=== PATIENT | female | born 1980 | race Caucasian/White ===

== ENCOUNTER 2020-07-06 15:56 | Emergency (ER) | payer OTHER, SELFPAY ==
--- NOTE | ~2020-07-06 | CT_ITS ---
EXAMINATION: CT ABDOMEN AND PELVIS WITHOUT CONTRAST CLINICAL INFORMATION: Left lower quadrant pain. COMPARISON: CT scan abdomen pelvis 08/16/2016 TECHNIQUE: Multidetector volumetric imaging was performed from the superior aspect of the liver through the pubic symphysis. Sagittal and coronal reformatted images were obtained on the technologist's workstation. This CT examination was performed using dose optimization techniques as appropriate, variously including the following: *Automated exposure control *Adjustment of mA and/or kV according to patient size (this includes techniques or standardized protocols for targeted exams where dose is matched to indication/reason for exam; i.e. extremities or head) *Use of iterative reconstruction technique DLP: 434 mGy-cm FINDINGS: LUNG BASES: The visualized lung bases are unremarkable. LIVER, GALLBLADDER, AND BILIARY TREE: The liver is normal in size, shape, and attenuation. No focal hepatic lesion or biliary ductal dilatation is present. The gallbladder is unremarkable with no evidence of radiopaque gallstones, gallbladder wall thickening, or obvious pericholecystic inflammatory changes. PANCREAS: Unremarkable. SPLEEN: Unremarkable. ADRENAL GLANDS: Unremarkable. KIDNEYS AND URETERS: The kidneys are normal in size, shape, and attenuation. No hydronephrosis, hydroureter, or calculi seen. No perinephric stranding. Stable hyperdense cyst upper pole left kidney unchanged since 08/16/2016. There is also 2 to 3 mm hyperdense cortical lesion likely a cyst at the lower pole left kidney. No follow-up imaging is recommended for these renal cyst. BLADDER: Unremarkable. GASTROINTESTINAL TRACT: There are numerous diverticula of the colon. There is moderate focal diverticulitis of the distal descending colon. There is bowel wall thickening and pericolonic edema. No obstruction. No abscess or perforation. Moderate volume of scattered stool in the colon. The small bowel loops are normal. The appendix is normal. ABDOMINAL WALL: No significant hernia is appreciated. LYMPH NODES: Normal. VASCULAR: Unremarkable. PELVIC VISCERA: Uterus is anteverted. IUD in the endometrial cavity. There is no adnexal abnormality. OSSEOUS STRUCTURES: Unremarkable. CT/CT abdomen pelvis wo con IMPRESSION: Focal diverticulitis of the distal descending colon. No obstruction or abscess or perforation.
[2020-07-06 16:42] VITALS: BP 137/85; PULSE 77; RESP 18; TEMP 36.7; O2SAT 100; BMI 23.0
[2020-07-06 17:48] LABS: MANUAL DIFF FLAG NO
[2020-07-06 17:52] LABS: Basophils Absolute Auto 0.1 X10*3/uL (0.0-0.2); Basophils Percent Auto 0.6 % (0-2); Eosinophils Absolute Auto 0.4 X10*3/uL (0.0-0.4); Eosinophils Percent Auto 3.9 % (0-4); Hematocrit 35.2 % (37-47); Hemoglobin 11.8 g/dl (12.0-16.0); Imm Gran Abs Auto 0.04 X10*3/uL (0.00-0.03); Imm Gran Pct Auto 0.4 % (0.0-0.4); Lymphocytes Absolute Auto 1.8 X10*3/uL (1.2-4.9); Lymphocytes Percent Auto 17.5 % (20-40); Mean Corpuscular HGB Conc 33.5 g/dl (31.0-35.0); Mean Corpuscular Hemoglobin 28.3 pg (27.0-33.0); Mean Corpuscular Volume 84.4 fL (80-98); Mean Platelet Volume 10.4 fL (9.4-12.3); Monocytes Absolute Auto 0.9 X10*3/uL (0.1-1.2); Monocytes Percent Auto 8.8 % (2-11); Neutrophils Percent Auto 68.8 % (45-73); Platelet Count 431 X10*3/uL (160-400); Red Blood Count 4.17 X10*6/uL (4.20-5.50); Red Cell Distribution Width 12.9 % (11.0-16.0); White Blood Count 10.2 X10*3/uL (4.8-10.8)
[2020-07-06 18:26] LABS: Alanine Aminotransferase 18 U/L (0-31); Albumin Level 4.2 g/dL (3.5-5.0); Alkaline Phosphatase 69 U/L (39-117); Anion Gap 14 (12-20); Aspartate Amino Transferase 21 U/L (5-31); Bilirubin Total 0.5 mg/dL (0.0-1.0); Blood Urea Nitrogen 9 mg/dL (9-16); Calcium 9.6 mg/dL (8.4-10.2); Carbon Dioxide 25 mmol/L (22-29); Chloride 102 mmol/L (96-108); Creatinine Clr Calc Pharmacy 96.2; Estimated Glomerular Filt Rate > 60; Glucose Random 96 mg/dL (60-115); Potassium 3.7 mmol/L (3.3-5.1); Sodium 137 mmol/L (135-145); Total Protein 7.1 g/dL (6.5-8.0)
--- NOTE | 2020-07-06 22:03 | ED.ABDPAIN ---
HPI - Abdominal Pain General Chief Complaint: Abdominal Pain Stated Complaint: abd pain Time Seen by Provider: 07/06/20 21:46 Source: patient Mode of arrival: ambulatory Limitations: no limitations History of Present Illness MD elicited complaint: abdominal pain Pertinent past history: diverticulitis Onset (ago): day(s) (3) Pain Consistency: constant Location: LLQ Severity: moderate Quality: cramping Radiation: none Migration to: no migration Exacerbating factors: movement Relieving factors: nothing Context: history of similar episodes Associated symptoms: nausea and diarrhea Treatments prior to arrival: antacids Related Data Previous Rx's Medication Instructions Recorded naltrexone 50 mg tablet 50 mg PO DAILY #30 tab 04/19/20 levofloxacin 500 mg PO DAILY 7 Days #7 tab 07/06/20 metronidazole [Flagyl] 500 mg PO BID 7 Days #14 tab 07/06/20 ondansetron 4 mg PO Q8H PRN #20 tab 07/06/20 Allergies Allergy/AdvReac Type Severity Reaction Status Date / Time penicillin G [Penicillin G] Allergy Mild UNKNOWN Verified 07/06/20 16:42 Sulfa (Sulfonamide Allergy Mild RASH Verified 07/06/20 16:42 Antibiotics) [SULFA (SULFONAMIDE ANTIBIOTICS)] penicillin V Allergy Unknown Unknown Verified 07/06/20 16:42 Review of Systems Review of Systems Constitutional : No Weight loss, No Fever, No Chills ENT/Mouth : No sore throat, No Rhinorrhea Eyes: No Swelling, No Redness Cardiovascular : No Chest Pain, No SOB, NoEdema Respiratory : No Cough, No Sputum, No Wheezing Gastrointestinal : Positive Nausea, no Vomiting, positive Diarrhea, positive abdominal Pain, No Hematochezia, No Melena Genitourinary : No Dysuria, No Urinary Frequency, No Hematuria, No Urgency Musculoskeletal : No joint pain, No Myalgias, No Joint Swelling Skin : No Skin Lesions, No rash Neuro : No Weakness, No Numbness, No Dizziness, No Headache Psych : No Anxiety/Panic, No Depression Heme/Lymph: No Bruising, No Lymphadenopathy Endocrine : No Polyuria, No Polydipsia All other systems reviewed and are negative. Physical Exam Vital Signs: Vital Signs: Last Vital Signs Temp 98.8 F 07/06/20 22:16 Pulse 80 07/06/20 22:16 Resp 20 07/06/20 22:16 BP 141/95 H 07/06/20 22:16 Pulse Ox 98 07/06/20 22:16 Body Mass Index 23.0 Appearance: Alert. Oriented X3. No acute distress. Eyes: Pupils equal, round and reactive to light. ENT: Pharynx normal. Neck: Normal inspection. Neck supple. CVS: Normal heart rate and rhythm. Pulses normal. Respiratory: No respiratory distress. Breath sounds normal. Abdomen: Soft and mild LLQ pain no rebound or guarding Skin: Skin warm and dry. Normal skin color. Normal skin turgor. Extremities: No lower extremity edema. No calf ttp Neuro: Oriented X 3. No motor deficit. No sensory deficit. Course Course Course Narrative: not toxic, overall benign exam can tolerate PO stable for outpatient management MDM - Abdominal Pain MDM Narrative Medical decision making narrative: 40 yo female hx of diverticulitis and ovarian cyst here with LLQ pain with some loose stools and nausea at this time, labs, UA, CT scan for diverticulitis ordered, not toxic, no WBC count, no GIB symptoms dispo per results and findings. Lab Data Result diagrams: 07/06/20 17:35 07/06/20 17:35 Labs: Lab Results 07/06/20 07/06/20 07/06/20 Range/Units 17:35 17:35 17:35 WBC 10.2 (4.8-10.8) X10*3/uL RBC 4.17 L (4.20-5.50) X10*6/uL Hgb 11.8 L (12.0-16.0) g/dl Hct 35.2 L (37-47) % MCV 84.4 (80-98) fL MCH 28.3 (27.0-33.0) pg MCHC 33.5 (31.0-35.0) g/dl RDW 12.9 (11.0-16.0) % Plt Count 431 H (160-400) X10*3/uL MPV 10.4 (9.4-12.3) fL Immature Gran % (Auto) 0.4 (0.0-0.4) % Neut % (Auto) 68.8 (45-73) % Lymph % (Auto) 17.5 L (20-40) % [place] % (Auto) 8.8 (2-11) % Eos % (Auto) 3.9 (0-4) % Baso % (Auto) 0.6 (0-2) % Lymph # (Auto) 1.8 (1.2-4.9) X10*3/uL [place] # (Auto) 0.9 (0.1-1.2) X10*3/uL Eos # (Auto) 0.4 (0.0-0.4) X10*3/uL Baso # (Auto) 0.1 (0.0-0.2) X10*3/uL Abs Immat Gran (auto) 0.04 H (0.00-0.03) X10*3/uL Absolute Neuts (auto) 7.0 (2.0-8.3) X10*3/uL Absolute Nucleated RBC 0.000 (0.0-0.012) X10*3/uL Nucleated RBC % (auto) 0.0 (0.0-0.2) /100WBC Hold Blue Top SEE NOTE Sodium 137 (135-145) mmol/L Potassium 3.7 (3.3-5.1) mmol/L Chloride 102 (96-108) mmol/L Carbon Dioxide 25 (22-29) mmol/L Anion Gap 14 (12-20) BUN 9 (9-16) mg/dL Creatinine 0.63 (0.5-1.4) mg/dL Estim Creat Clear Calc 96.2 Estimated GFR > 60 Random Glucose 96 (60-115) mg/dL Calcium 9.6 (8.4-10.2) mg/dL Total Bilirubin 0.5 (0.0-1.0) mg/dL AST 21 (5-31) U/L ALT 18 (0-31) U/L Alkaline Phosphatase 69 (39-117) U/L Total Protein 7.1 (6.5-8.0) g/dL Albumin 4.2 (3.5-5.0) g/dL Lipase 19 (8-78) U/L Urine Color Urine Appearance Urine pH (5.0-8.0) Ur Specific [place] (1.005-1.025) Urine Protein (NEG-TRACE) MG/DL Urine Glucose (UA) (NEG) MG/DL Urine Ketones (NEG) MG/DL Urine Blood (NEG) Urine Nitrite (NEG) Ur Leukocyte Esterase (NEG) Urine RBC (0) /HPF Urine WBC (0-4) /HPF Ur Squamous Epith Cells /LPF Urine Bacteria /LPF 07/06/20 Range/Units 22:19 WBC (4.8-10.8) X10*3/uL RBC (4.20-5.50) X10*6/uL Hgb (12.0-16.0) g/dl Hct (37-47) % MCV (80-98) fL MCH (27.0-33.0) pg MCHC (31.0-35.0) g/dl RDW (11.0-16.0) % Plt Count (160-400) X10*3/uL MPV (9.4-12.3) fL Immature Gran % (Auto) (0.0-0.4) % Neut % (Auto) (45-73) % Lymph % (Auto) (20-40) % [place] % (Auto) (2-11) % Eos % (Auto) (0-4) % Baso % (Auto) (0-2) % Lymph # (Auto) (1.2-4.9) X10*3/uL [place] # (Auto) (0.1-1.2) X10*3/uL Eos # (Auto) (0.0-0.4) X10*3/uL Baso # (Auto) (0.0-0.2) X10*3/uL Abs Immat Gran (auto) (0.00-0.03) X10*3/uL Absolute Neuts (auto) (2.0-8.3) X10*3/uL Absolute Nucleated RBC (0.0-0.012) X10*3/uL Nucleated RBC % (auto) (0.0-0.2) /100WBC Hold Blue Top Sodium (135-145) mmol/L Potassium (3.3-5.1) mmol/L Chloride (96-108) mmol/L Carbon Dioxide (22-29) mmol/L Anion Gap (12-20) BUN (9-16) mg/dL Creatinine (0.5-1.4) mg/dL Estim Creat Clear Calc Estimated GFR Random Glucose (60-115) mg/dL Calcium (8.4-10.2) mg/dL Total Bilirubin (0.0-1.0) mg/dL AST (5-31) U/L ALT (0-31) U/L Alkaline Phosphatase (39-117) U/L Total Protein (6.5-8.0) g/dL Albumin (3.5-5.0) g/dL Lipase (8-78) U/L Urine Color YELLOW Urine Appearance CLEAR Urine pH 6.0 (5.0-8.0) Ur Specific [place] 1.015 (1.005-1.025) Urine Protein NEG (NEG-TRACE) MG/DL Urine Glucose (UA) NEG (NEG) MG/DL Urine Ketones 5 (NEG) MG/DL Urine Blood TRACE (NEG) Urine Nitrite NEG (NEG) Ur Leukocyte Esterase TRACE H (NEG) Urine RBC 1-4 (0) /HPF Urine WBC 1-4 (0-4) /HPF Ur Squamous Epith Cells TRACE /LPF Urine Bacteria 2+ /LPF Discharge Plan Discharge Clinical Impression: Diverticulitis Patient Disposition: Home, Self-Care Instructions: Diverticulitis (ED) Additional Instructions: return to ED for any worsening symptoms or concerns Prescriptions: New ondansetron 4 mg tablet,disintegrating 4 mg PO Q8H PRN (Reason: nausea and vomiting) Qty: 20 RF: 0 metronidazole [Flagyl] 500 mg tablet 500 mg PO BID 7 Days Qty: 14 RF: 0 levofloxacin 500 mg tablet 500 mg PO DAILY 7 Days Qty: 7 RF: 0 No Action naltrexone 50 mg tablet 50 mg PO DAILY Qty: 30 RF: 3 Referrals: Ollie Pulliam PA-C [Primary Care Provider] - 1 week Stand Alone Forms: Work/School Release [facility] Past Medical History Attestation statement: The following information was validated with the patient. Medical History Alcohol abuse Surgical History No pertinent past surgical history Family History Family History (Updated 03/31/20 @ 08:12 by ESTHER Espino) Father Medical history unknown Mother Medical history unknown Paternal Grandfather Cancer Sister Epilepsy Daughter In good health Son In good health Social History Social History (Updated 07/06/20 @ 22:24 by Kayla Kenney DO) Alcohol intake: former Smoking Status: Never smoker Advance Directives: No Advance Directives Information Provided: No Patient : No
[2020-07-06 22:16] VITALS: BP 141/95; PULSE 80; RESP 20; TEMP 37.1; O2SAT 98
[2020-07-06 22:24] LABS: Lipase 19 U/L (8-78)
[2020-07-06 22:34] LABS: Glucose Urine UA NEG (NEG); Leukocyte Esterase Urine TRACE (NEG); Nitrite Urine NEG (NEG); Specific Gravity - Urine 1.015 (1.005-1.025); UACC Culture Trigger YES; Urine Blood TRACE (NEG); Urine Ketones 5 MG/DL (NEG); Urine Protein NEG (NEG-TRACE)
[2020-07-06 22:36] LABS: Appearance Urine CLEAR; Color Urine YELLOW
[2020-07-06 22:59] LABS: Bacteria Urine 2+ /LPF; Squamous Epithelial Cell Urine TRACE /LPF
[2020-07-06] MEDS: metroNIDAZOLE 500 MG TABLET PO (23:44)
[2020-07-06] MEDS: levoFLOXacin 500 MG TABLET PO (23:44)
== END 2020-07-06 23:48 | disposition home or self-care (01) ==
PROVIDERS: Emergency Provider Emergency Medicine; PCP Physician Assistant
DX: K57.32 Diverticulitis of large intestine without perforation or abscess without bleeding (principal); R10.32 Left lower quadrant pain; Z79.899 Other long term (current) drug therapy
CPT/HCPCS: 36415; 74176; 80053; 81001; 81003; 83690; 85025; 87086; 99283

== ENCOUNTER 2021-01-15 19:24 | Emergency (ER) | payer OTHER, SELFPAY ==
--- NOTE | ~2021-01-15 | CT_ITS ---
EXAMINATION: CT HEAD WITHOUT CONTRAST CLINICAL INFORMATION: Fall. COMPARISON: CT head dated from 10/18/2019. TECHNIQUE: Contiguous axial imaging was performed from the skull base to vertex without intravenous administration of contrast. This CT examination was performed using dose optimization techniques as appropriate, variously including the following: *Automated exposure control *Adjustment of mA and/or kV according to patient size (this includes techniques or standardized protocols for targeted exams where dose is matched to indication/reason for exam; i.e. extremities or head) *Use of iterative reconstruction technique DLP: 579 mGy-cm FINDINGS: There is no evidence of acute intracranial hemorrhage or edematous territorial infarction. There is no abnormal attenuation within the brain parenchyma. Pepper-white matter differentiation is preserved. The ventricles are normal in size and configuration. No evidence for obstructive hydrocephalus. No abnormal mass effect or midline shift. No extra-axial fluid collections. Small contusion in the right parietal vertex. No acute osseous findings. Mild mucosal thickening of the paranasal sinuses. Clear mastoids. CT/CT head/brain wo con IMPRESSION: No evidence of acute intracranial hemorrhage or edematous territorial infarction.
[2021-01-15 19:38] VITALS: BP 134/96; PULSE 113; RESP 18; TEMP 36.7; O2SAT 95; BMI 21.2
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
[2021-01-15 20:37] VITALS: BP 120/86; PULSE 102; RESP 15; O2SAT 95
[2021-01-15] MEDS: 0.9 % Sodium Chloride 1,000 ML 999 ML IVCONT ×2 (20:38→22:28)
[2021-01-15] MEDS: ondansetron HCL 4 MG/2 ML VIAL IVPUSH (20:39)
[2021-01-15] MEDS: Folic Acid 1 MG TABLET PO (20:39)
[2021-01-15] MEDS: Thiamine HCL 100 MG TABLET PO (20:39)
[2021-01-15] MEDS: LORazepam 2 MG/ML VIAL IVPUSH ×2 (20:39→22:29)
[2021-01-15 20:40] LABS: Basophils Absolute Auto 0.1 X10*3/uL (0.0-0.2); Basophils Percent Auto 0.9 % (0-2); Eosinophils Percent Auto 0.6 % (0-4); Hematocrit 41.5 % (37.0-47.0); Hemoglobin 14.4 g/dl (12.0-16.0); Imm Gran Abs Auto 0.01 X10*3/uL (0.00-0.03); Imm Gran Pct Auto 0.1 % (0.0-0.4); Lymphocytes Absolute Auto 1.9 X10*3/uL (1.2-4.9); Lymphocytes Percent Auto 28.1 % (20-40); MANUAL DIFF FLAG NO; Mean Corpuscular HGB Conc 34.7 g/dl (31.0-35.0); Mean Corpuscular Hemoglobin 29.8 pg (27.0-33.0); Mean Corpuscular Volume 85.9 fL (80.0-98.0); Mean Platelet Volume 8.8 fL (9.4-12.3); Monocytes Absolute Auto 0.9 X10*3/uL (0.1-1.2); Monocytes Percent Auto 13.5 % (2-11); Neutrophils Absolute Auto 3.8 x10*3/uL (2.0-8.3); Neutrophils Percent Auto 56.8 % (45-73); Platelet Count 293 X10*3/uL (160-400); Red Blood Count 4.83 X10*6/uL (4.20-5.50); Red Cell Distribution Width 18.1 % (11.0-16.0); White Blood Count 6.7 X10*3/uL (4.8-10.8)
[2021-01-15 20:46] LABS: INTERNATIONAL NORM RATIO 0.9 (0.9-1.1); Prothrombin Time 10.7 SEC (9.9-13.0)
[2021-01-15 20:52] LABS: Ethanol 266 mg/dL
[2021-01-15 21:02] LABS: Alanine Aminotransferase 101 U/L (0-31); Albumin Level 3.8 g/dL (3.5-5.0); Alkaline Phosphatase 144 U/L (39-117); Anion Gap 20 (12-20); Aspartate Amino Transferase 243 U/L (5-31); Bilirubin Total 0.4 mg/dL (0.0-1.0); Blood Urea Nitrogen 4 mg/dL (9-16); Calcium 8.1 mg/dL (8.4-10.2); Carbon Dioxide 21 mmol/L (22-29); Chloride 103 mmol/L (96-108); Creatinine Clr Calc Pharmacy 97.8; Estimated Glomerular Filt Rate > 60; Glucose Random 104 mg/dL (60-115); Lipase 30 U/L (8-78); Magnesium 2.1 mg/dL (1.6-2.6); Potassium 3.7 mmol/L (3.3-5.1); Sodium 140 mmol/L (135-145); Total Protein 6.8 g/dL (6.5-8.0)
[2021-01-15 21:35] LABS: COVID-19 Test Negative (Negative)
[2021-01-15 23:25] VITALS: BP 121/85; PULSE 133; RESP 20; O2SAT 98
--- NOTE | 2021-01-16 00:17 | MHC.CARE ---
CARE team met with pt to provide recovery resources. Pt reports she went to [place] today and then had to come to the ED. She is seeking detox, however at this time there are no available beds. Pt feels safe returning to her mother's house for the night/weekend. She was provided with resources in which she will contact them tomorrow. Pt will be discharged to her mother's home.
[2021-01-16 00:19] VITALS: BP 116/84; PULSE 130; RESP 20; TEMP 37; O2SAT 97
--- NOTE | 2021-01-16 00:20 | PC.NURSE ---
Pt educated on being discharged, stated an understanding. Heart rate remains tachycardic in the 130's, MD Raza aware PO Ativan to be given. BP is WNL. CIWA score is 4, patient only complains of headache and anxiety. 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 IV removed. Pt able to ambulate on her feet without issues.
[2021-01-16] MEDS: LORazepam 1 MG TABLET 2 MG PO (00:25)
== END 2021-01-16 00:54 | disposition home or self-care (01) ==
PROVIDERS: Emergency Provider Internal Medicine; PCP Physician Assistant
DX: F10.120 Alcohol abuse with intoxication, uncomplicated (principal); Y90.8 Blood alcohol level of 240 mg/100 ml or more; F41.9 Anxiety disorder, unspecified; Z20.822 Contact with and (suspected) exposure to COVID-19; Z79.899 Other long term (current) drug therapy
CPT/HCPCS: 36415; 70450; 80053; 82077; 83690; 83735; 85025; 85610; 87635; 96361; 96374; 96375; 96376; 99284; 99285; J2060; J2405

== ENCOUNTER 2021-01-19 15:52 | Inpatient (IN) | payer OTHER, SELFPAY ==
--- NOTE | ~2021-01-19 | CT_ITS ---
EXAMINATION: CT ABDOMEN AND PELVIS WITHOUT CONTRAST CLINICAL INFORMATION: Left-sided abdominal pain COMPARISON: CT scan abdomen pelvis 07/06/2020, 08/16/2016 TECHNIQUE: Multidetector volumetric imaging was performed from the superior aspect of the liver through the pubic symphysis. Sagittal and coronal reformatted images were obtained on the technologist's workstation. This CT examination was performed using dose optimization techniques as appropriate, variously including the following: *Automated exposure control *Adjustment of mA and/or kV according to patient size (this includes techniques or standardized protocols for targeted exams where dose is matched to indication/reason for exam; i.e. extremities or head) *Use of iterative reconstruction technique DLP: 417 mGy-cm FINDINGS: LUNG BASES: The visualized lung bases are unremarkable. LIVER, GALLBLADDER, AND BILIARY TREE: Marked low attenuation of liver parenchyma due to fatty change. This has significantly progressed since the prior CAT scan of 07/06/2020. Right lobe of liver measures 17 cm superior inferior. No focal liver lesion or intrahepatic bile duct dilatation. The gallbladder is unremarkable with no evidence of radiopaque gallstones, gallbladder wall thickening, or obvious pericholecystic inflammatory changes. PANCREAS: Unremarkable. SPLEEN: Unremarkable. ADRENAL GLANDS: Unremarkable. KIDNEYS AND URETERS: The kidneys are normal in size, shape, and attenuation. No hydronephrosis, hydroureter, or calculi seen. No perinephric stranding. Exophytic hyperdense cyst at the midpole left kidney measuring 1.5 cm. This is unchanged since CAT scan 08/16/2016 no further follow-up imaging recommended. BLADDER: Unremarkable. GASTROINTESTINAL TRACT: There are numerous diverticula of the sigmoid colon and descending colon. There are a few scattered diverticula in the right colon. There is subtle bowel wall thickening and subtle pericolonic edema adjacent to the distal descending and proximal sigmoid colon with trace fluid in the pericolonic fat. This is a same area of focal diverticulitis seen on the prior CAT scan of 07/06/2020. The edema and bowel wall thickening was more significant on the prior exam than the current study. No evidence of bowel perforation or abscess. There is no bowel obstruction. There is a moderate volume of stool in the colon. The appendix is normal . The small bowel loops are unremarkable. The stomach is normal. There is no hiatal hernia. ABDOMINAL WALL: Fat-containing umbilical hernia. LYMPH NODES: Normal. VASCULAR: Unremarkable. PELVIC VISCERA: Uterus is anteverted. IUD in the endometrial cavity. No adnexal abnormality. OSSEOUS STRUCTURES: Unremarkable. CT/CT abdomen pelvis wo con IMPRESSION: 1. The previously seen focal diverticulitis of the sigmoid, distal descending colon on CAT scan 07/06/2020 have substantially improved. There are still subtle bowel wall thickening, edema and trace pericolonic fluid in the same area of the colon suggesting a mild diverticulitis. 2. Significant change of the liver parenchymal density. There is marked low attenuation of liver parenchyma due to fatty change now present.
--- NOTE | 2021-01-19 16:57 | MHC.RECOVSUP ---
? Reason for consult Recovery Support o Current location: ER W o Identified substance use concern: Alcohol - Withdrawal - Seeking ATS (detox) - Support ? Intervention: o MAT started or to be started o Community resources provided o Harm reduction discussion ? Plan: o Bed search in progress to Several o Follow up tomorrow o Patient awaiting crisis evaluation o Patient to follow up with [facility] after discharge ? Additional information: Patient came to the ED looking for help detoxing from alcohol.. I called [facility] and Patient was already on the waiting list and they stated that she MAY have a bed tomorrow.. I called N and no bed at the moment.
[2021-01-19 17:26] VITALS: BP 130/94; PULSE 120; RESP 18; TEMP 36.7; O2SAT 95
[2021-01-19 19:42] LABS: MANUAL DIFF FLAG NO
[2021-01-19 19:43] LABS: Basophils Absolute Auto 0.1 X10*3/uL (0.0-0.2); Basophils Percent Auto 2.1 % (0-2); Eosinophils Absolute Auto 0.1 X10*3/uL (0.0-0.4); Eosinophils Percent Auto 1.9 % (0-4); Hematocrit 42.5 % (37.0-47.0); Hemoglobin 14.5 g/dl (12.0-16.0); Imm Gran Abs Auto 0.01 X10*3/uL (0.00-0.03); Imm Gran Pct Auto 0.2 % (0.0-0.4); Lymphocytes Absolute Auto 1.2 X10*3/uL (1.2-4.9); Lymphocytes Percent Auto 28.9 % (20-40); Mean Corpuscular HGB Conc 34.1 g/dl (31.0-35.0); Mean Corpuscular Hemoglobin 29.8 pg (27.0-33.0); Mean Corpuscular Volume 87.3 fL (80.0-98.0); Mean Platelet Volume 8.8 fL (9.4-12.3); Monocytes Absolute Auto 0.6 X10*3/uL (0.1-1.2); Monocytes Percent Auto 14.3 % (2-11); Neutrophils Absolute Auto 2.2 x10*3/uL (2.0-8.3); Neutrophils Percent Auto 52.6 % (45-73); Platelet Count 244 X10*3/uL (160-400); Red Blood Count 4.87 X10*6/uL (4.20-5.50); Red Cell Distribution Width 19.7 % (11.0-16.0); White Blood Count 4.2 X10*3/uL (4.8-10.8)
[2021-01-19 19:55] LABS: Ethanol 336 mg/dL
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
[2021-01-19 20:08] LABS: Alanine Aminotransferase 100 U/L (0-31); Albumin Level 3.9 g/dL (3.5-5.0); Alkaline Phosphatase 145 U/L (39-117); Anion Gap 17 (12-20); Aspartate Amino Transferase 295 U/L (5-31); Bilirubin Total 0.3 mg/dL (0.0-1.0); Blood Urea Nitrogen 6 mg/dL (9-16); Calcium 8.3 mg/dL (8.4-10.2); Carbon Dioxide 23 mmol/L (22-29); Chloride 107 mmol/L (96-108); Creatinine Clr Calc Pharmacy 108.5; Estimated Glomerular Filt Rate > 60; Glucose Random 104 mg/dL (60-115); Sodium 143 mmol/L (135-145); Total Protein 7.1 g/dL (6.5-8.0)
[2021-01-19 20:33] VITALS: BP 134/91; PULSE 104; RESP 18; TEMP 36.6; O2SAT 98
[2021-01-19] MEDS: LORazepam 1 MG TABLET 2 MG PO (20:35)
[2021-01-20] VITALS (7 sets, daily range): BP systolic 119–139; BP diastolic 73–98; PULSE 106–129; RESP 15–21; TEMP 36.8–37.3; O2SAT 94–100
--- NOTE | 2021-01-20 07:38 | PC.NURSE ---
Upon initial assessment pt flushed, diaphoretic, tachy on tele in 140s, tremors. Denies nausea or vomiting, no hallucinations. Dr Jones aware and new orders obtained.
[2021-01-20] MEDS: LORazepam 2 MG/ML VIAL IVPUSH ×3 (07:51→10:28)
[2021-01-20] MEDS: 0.9 % Sodium Chloride 1,000 ML 999 ML IVCONT ×2 (07:52→08:47)
--- NOTE | 2021-01-20 08:48 | PC.NURSE ---
Pt appears more comfortable. Sinus tach on tele but trended down to 120s. Less tremors noted than initial assessment and pt verbally reports feeling better. Second liter started
[2021-01-20] MEDS: Acetaminophen 325 MG TABLET 975 MG PO (09:12)
--- NOTE | 2021-01-20 11:06 | PC.NURSE ---
Patient alert and oriented x3. Patient this am was diaphoretic, moderate tremors, severe headache 11/29 patient given lorazepam 2mg iv push with some relief heart rate 150's. Patient given 2 more doses of iv ativan and tylenol with some relief heart rate with exertion 150's. Patient c/o headache 08/29 after ativan and tylenol. Will continue to monitor.
--- NOTE | 2021-01-20 11:25 | MHC.CARE ---
CARE Team responded to consult request to speak with this 40 year-old woman who came to the ED yesterday seeking detox but also reported feeling hopeless. Per nursing staff patient has been calm and cooperative with treatment with no concerning behaviors or statements. Met with patient in room 19, she was semi-reclined in bed, alert, oriented, pleasant, easily engaged, answered all questions with thought. She maintained appropriate eye contact, appeared clean and well groomed, neutral affect, was soft-spoken, thought process clear, and she showed no evidence of psychosis, delusions or baldev. In terms of her depression and possible suicidal ideation, patient stated that she did have a feeling yesterday while she was intoxicated that she did not want to go on and even wished she would not wake up. Patient said at times when drinking she feels miserable and mad at herself for her inability to maintain sobriety. Today she said she does not want to end her life, never had an intention or made a plan to take any action to toward that. Patient has no history of suicide attempts or gestures, has never been hospitalized for psychiatric reasons. She has multiple protective factors, therapist and [facility]er Hand at [facility], attends virtual AA meetings and several other supports such as her mother and best friend who are both actively involved and supportive helping patient sustain abstinence. Patient has stable housing, is employed at a job she likes and is future oriented currently involved in getting her 13 year-old daughter home multimedia editor from [facility] custody which she is can obtain when solidly in recovery. Patient is not in need of inpatient psychiatric care, no further mental health intervention indicated at this time.
--- NOTE | 2021-01-20 12:31 | MHC.RECOVSUP ---
Recovery Support note: Patient is a 40 year old Welsh speaking female who presented to [facility] ED on 01/19 seeking detox. This com writer met with patient on 01/20 to discuss alcohol use and recovery supports. Patient reports relapsing three weeks ago after nine months of sobriety. Patient reports she has not found detox helpful in the past and she is not sure if she wants to go. Discussed the dangers of alcohol withdrawal and patient is agreeable to being referred to [facility] and [facility]. CARE Team met with patient to evaluate patient due to hopelessness. [facility] currently reports no available beds at this time. [facility] is holding a bed for patient however is still reviewing clinical information. This com writer awaits follow up from [facility].
--- NOTE | 2021-01-20 13:21 | MHC.RECOVSUP ---
Recovery Support note: [facility] denied patient for admission, stating that they are concerned that the patient is not safe to transfer due to withdrawal symptoms. Discussed case with patient's ED provider.
--- NOTE | 2021-01-20 14:08 | PHA.MEDREC ---
Pharmacy Consult ? Medication Reconciliation Pharmacy has completed the medication reconciliation. Patient reports she has not taken any medications for 2 weeks. She reported all her medications. Sertraline and naltrexone have no been filled since august. Patient is not adherent to her medications and takes them on and off. Leatha Adams, PharmD
[2021-01-20] MEDS: PHENobarbitaL sodium 130 MG/ML VIAL 210.6 MG IM (14:14)
[2021-01-20 14:24] LABS: COVID-19 Test Positive (Negative)
--- NOTE | 2021-01-20 16:08 | PM.IMHP ---
History of Present Illness Date of Service: 01/20/21 Attending physician on admission: Berta Gutiérrez Chief Complaint: Alcohol withdrawal, COVID positive. 40-year-old female who has history of alcohol use, she was sober for 9 months, 1 month back she started back- she drinks 12 nips of vodka every day- was in the hospital since yesterday night for detox but found to have in alcohol withdrawal that is why could not go to [facility] directly and getting admitted. Patient has tremors and anxiety when I saw the patient. also incidental found to be COVID positive. Denies any new complaint of chest pain or shortness of breath or abdominal pain or fever or chills or nausea or vomiting Denies any cough Denies any weakness or numbness. Past medical history has anxiety. lab imaging reviewed: has mild elevated LFTs similar to previous on 01/15. Otherwise unremarkable has mild leukopenia. Review of Systems Review of Systems: as above In HP I. Yes all other systems are reviewed and are negative [facility] Medical History Alcohol abuse Family History Father Medical history unknown Mother Medical history unknown Paternal Grandfather Cancer Sister Epilepsy Daughter In good health Son In good health Surgical History No pertinent past surgical history Social History Alcohol intake: current Alcohol intake frequency: 3 or more drinks per day Alcohol type: wine and hard liquor Patient Tobacco Use Status: Former Tobacco user Smoked in Last 30 Days: No Use of substances other than those prescribed or required for medical reasons: No Advance Directives: No Advance Directives Information Provided: Yes Patient : No Meds Allergies Allergy/AdvReac Type Severity Reaction Status Date / Time penicillin G [Penicillin G] Allergy Mild UNKNOWN Verified 01/19/21 17:26 Sulfa (Sulfonamide Allergy Mild RASH Verified 01/19/21 17:26 Antibiotics) [SULFA (SULFONAMIDE ANTIBIOTICS)] penicillin V Allergy Unknown Unknown Verified 01/19/21 17:26 Active Medications: Current Medications Clonidine HCl (Clonidine Hcl 0.1 Mg Tablet) 0.1 mg PO DAILY GHASSAN; Protocol Folic Acid (Folic Acid 1 Mg Tablet) 1 mg PO DAILY GHASSAN Lactated Ringer's (Lr) 1,000 mls @ 100 mls/hr IVCONT .Q10H GHASSAN Medication (No Benzodiazepines) 1 each MISCELLANE DAILY GHASSAN Omeprazole (Omeprazole 20 Mg Capsule.Dr) 20 mg PO DAILY GHASSAN Ondansetron HCl (Ondansetron Hcl 4 Mg/2 Ml Vial) 4 mg IVPUSH Q6H PRN PRN Reason: Nausea Pharmacy Consult (Consult Rx Perform Med Rec) 1 each MISCELLANE ONCE PRN PRN Reason: Consult order Pharmacy Consult (Consult Rx Perform Med Rec) 1 each MISCELLANE ONCE PRN PRN Reason: Consult order Phenobarbital (Phenobarbital 15 Mg Tablet) 45 mg PO BID [facility]; Protocol Stop: 01/22/21 21:01 Phenobarbital (Phenobarbital 15 Mg Tablet) 15 mg PO BID GHASSAN; Protocol Stop: 01/24/21 21:01 Phenobarbital (Phenobarbital 15 Mg Tablet) 15 mg PO DAILY GHASSAN; Protocol Stop: 01/26/21 09:01 Phenobarbital Sodium (Phenobarbital Sodium 130 Mg/Ml Vial) 156 mg IM Q3H GHASSAN; Protocol Stop: 01/20/21 20:01 Sodium Chloride (0.9 % Sodium Chloride Flush 3 Ml Syringe) 3 ml IVFLUSH QSHIFT GHASSAN Thiamine HCl (Thiamine Hcl 100 Mg Tablet) 100 mg PO DAILY [facility] Physical Exam Vital Signs and Narrative: Vital Signs: Last Vital Signs Temp 98.7 F 01/20/21 11:13 Pulse 114 H 01/20/21 14:08 Resp 21 H 01/20/21 14:08 BP 139/98 H 01/20/21 14:08 Pulse Ox 95 01/20/21 14:08 BMI result Body Mass Index 0.1 physical exam: Appearance: Alert.? Oriented X3.? not in distress.? Eyes: Pupils equal, round and reactive to light.? Sclera nonicteric.? ENT: Pharynx normal.? Moist mucous membranes. cvs: mild tachycardia,, [id number] , no murmur res: clear to auscultation ,no rhonchii or wheezing abd: no rebound or guarding ,nt, bs present. ext pulses present , no cyanosis . neuro: axo3 , nonfocal. Has tremors, anxious Results Labs CBC and Chem 7: 01/19/21 19:38 01/19/21 19:38 Labs: Laboratory Results - last 24 hr 01/19/21 01/19/21 01/19/21 19:38 19:38 19:38 MCV 87.3 MCH 29.8 MCHC 34.1 RDW 19.7 H Plt Count 244 MPV 8.8 L Immature Gran % (Auto) 0.2 Neut % (Auto) 52.6 Lymph % (Auto) 28.9 [place] % (Auto) 14.3 H Eos % (Auto) 1.9 Baso % (Auto) 2.1 H Lymph # (Auto) 1.2 [place] # (Auto) 0.6 Eos # (Auto) 0.1 Baso # (Auto) 0.1 Abs Immat Gran (auto) 0.01 Absolute Neuts (auto) 2.2 Absolute Nucleated RBC 0.000 Nucleated RBC % (auto) 0.0 Anion Gap 17 Estim Creat Clear Calc 108.5 Estimated GFR > 60 Random Glucose 104 Calcium 8.3 L Total Bilirubin 0.3 AST 295 H ALT 100 H Alkaline Phosphatase 145 H Total Protein 7.1 Albumin 3.9 Ethyl Alcohol 336 H* COVID-19 (JABARI) COVID-19 Clin Com 01/20/21 14:08 MCV MCH MCHC RDW Plt Count MPV Immature Gran % (Auto) Neut % (Auto) Lymph % (Auto) [place] % (Auto) Eos % (Auto) Baso % (Auto) Lymph # (Auto) [place] # (Auto) Eos # (Auto) Baso # (Auto) Abs Immat Gran (auto) Absolute Neuts (auto) Absolute Nucleated RBC Nucleated RBC % (auto) Anion Gap Estim Creat Clear Calc Estimated GFR Random Glucose Calcium Total Bilirubin AST ALT Alkaline Phosphatase Total Protein Albumin Ethyl Alcohol COVID-19 (JABARI) Positive A COVID-19 Clin Com See Note Assessment and Plan (1) Alcohol abuse: Status: Acute (2) Alcohol withdrawal: Qualifiers: Complication of substance-induced condition: with unspecified complication Qualified Code(s): F10.239 - Alcohol dependence with withdrawal, unspecified Status: Acute (3) Anxiety: Status: Acute 1. Alcohol withdrawal:. ciwa scale Tachycardia probably related to alcohol withdrawal elevated LFT also probably related to alcohol use. Started on phenobarb electrolytes seems fine, continue thiamine and folic acid. Monitor electrolytes and LFT. 2. Anxiety: Continue patient's home anxiety medications will hold lorazepam for now since patient is on phenobarb. 3. DVT prophylaxis: Says Nathalia Chavezx. 4. COVID positive: Denies any respiratory symptoms or any GI symptoms or any smell disturbance. will continue to monitor, if any respiratory symptom will start dexamethasone. Quality Stroke Does the patient have a stroke diagnosis?: No VTE Prior VTE?: No VTE Risk Level:: Medical - moderate - high VTE Device Contraindication: N/A - Device Ordered VTE Drug Contraindication: N/A - Med Ordered
[2021-01-20] MEDS: Folic Acid 1 MG TABLET PO (16:47)
[2021-01-20] MEDS: Heparin Sodium,Porcine 5,000 UNIT/ML VIAL 5000 UNIT SUBCUT (16:47)
[2021-01-20] MEDS: Thiamine HCL 100 MG TABLET PO (16:47)
[2021-01-20] MEDS: PHENobarbitaL sodium 130 MG/ML VIAL 156 MG IM ×2 (16:48→20:16)
[2021-01-20] MEDS: Lactated Ringers 1,000 ML 100 ML IVCONT (17:04)
[2021-01-20 18:23] LABS: Lipase 51 U/L (8-78)
[2021-01-20 22:49] LABS: HCG Quantitative < 2 mIU/mL
--- NOTE | 2021-01-20 22:58 | PC.NURSE ---
I assumed care of this pt at 1900 from May Hassan. The pt has been sleeping, wakes to verbal stimuli at which time she is alert and oriented x 3. There are no tremors, diaphoresis, JIN, or hallucinations. Speech is clear and appropriate. SHe has c/o mild nausea, no vomiting. No chest pain or SOb. She makes eye contact with Rn and is calm and cooperative. For me, she denies SI and HI.
[2021-01-21] MEDS: Heparin Sodium,Porcine 5,000 UNIT/ML VIAL 5000 UNIT SUBCUT ×3 (02:26→18:21)
[2021-01-21 04:00] VITALS: BP 123/64; PULSE 93; RESP 18; TEMP 36.9; O2SAT 96
[2021-01-21] MEDS: PHENobarbitaL sodium 130 MG/ML VIAL IM ×2 (04:50→16:49)
[2021-01-21] MEDS: Omeprazole 20 MG CAPSULE.DR PO (06:12)
[2021-01-21 07:43] LABS: Anion Gap 15 (12-20); Blood Urea Nitrogen 2 mg/dL (9-16); Calcium 8.6 mg/dL (8.4-10.2); Carbon Dioxide 24 mmol/L (22-29); Chloride 102 mmol/L (96-108); Creatinine Clr Calc Pharmacy 110.2; Estimated Glomerular Filt Rate > 60; Glucose Random 76 mg/dL (60-115); Potassium 3.7 mmol/L (3.3-5.1); Sodium 137 mmol/L (135-145)
[2021-01-21] MEDS: Lactated Ringers 1,000 ML 100 ML IVCONT ×2 (07:45→22:12)
[2021-01-21 08:00] VITALS: BP 122/83; PULSE 103; RESP 19; TEMP 36.8; O2SAT 98
[2021-01-21] MEDS: 0.9 % Sodium Chloride Flush 3 ML SYRINGE IVFLUSH ×2 (08:01→16:05)
[2021-01-21 08:10] LABS: Alanine Aminotransferase 75 U/L (0-31); Albumin Level 3.5 g/dL (3.5-5.0); Alkaline Phosphatase 126 U/L (39-117); Aspartate Amino Transferase 204 U/L (5-31); Bilirubin Direct 0.3 mg/dL (0.0-0.5); Bilirubin Total 0.6 mg/dL (0.0-1.0); Total Protein 6.2 g/dL (6.5-8.0)
--- NOTE | 2021-01-21 10:16 | P.DS_ITS ---
DS: Providers Provider Date of Service: 01/23/21 Date of admission: 01/20/21 16:02 Primary care physician: Ollie Pulliam PA-C Consults: 01/19/21 20:11 Consult to Care Team Stat Comment: Reason for consultation: etoh 01/21/21 10:05 Consult to Care Team Routine Comment: Reason for consultation: alcohol abuse /detox DS: Diagnosis Discharge Diagnosis (1) Alcohol abuse: Status: Acute (2) Alcohol withdrawal: Status: Acute (3) Anxiety: Status: Acute (4) Elevated liver function tests: Status: Acute DS: Summary Hospital Course Hospital Course: date of service ?40-year-old female who has history of alcohol use, she was sober for 9 months,? 1 month back she started back- she drinks 12 nips of vodka every day- was in the hospital since yesterday night for detox but found to have in alcohol withdrawal that is why could not go to toxic directly and getting admitted. ? Patient has tremors and anxiety when I saw the patient. ?also incidental? found to be COVID? positive. ? Denies any new complaint of chest pain or shortness of breath or abdominal pain or fever or chills or nausea or vomiting Denies any cough Denies any weakness or numbness. hopsital course: patient came with alcohol withdrawal seems to be improved with phenobarb. Abdominal pain probably will secondary to mild diverticulitis: will added p.o. antibiotics. covid test positive : advised for quarantine for 1 week , wear mask ,If any respiratory symptoms or fever please come to the nearest emergency room. Elevated liver function test and fatty liver change on abdominal CT scan thought to be related to alcohol use, I would avoid strongly stop alcohol use- monitor LFTs with PCP in 1 week and further management outpatient as per PCP consider outpatient GI evaluation as per PCP. Above management discussed with the patient in detail length she understand and in agreement with the above plan, time spent 50 minutes and 50% time spent on counseling. Significant findings: As above. Procedures performed: None. Treatment and response: As above. Complications: None. Time Spent with Patient Time attestation: Total time spent providing and/or coordinating discharge services: Discharge coordination time: Greater than 30 minutes Quality: Stroke Does the patient have a stroke diagnosis?: No Physical Exam Vital Signs: Vital Signs: Last Vital Signs Temp 98.3 F 01/21/21 08:00 Pulse 103 H 01/21/21 08:00 Resp 19 01/21/21 08:00 BP 122/83 01/21/21 08:00 Pulse Ox 98 01/21/21 08:00 BMI result Body Mass Index 0.1 Appearance: Alert.? Oriented X3.? not in distress.? Eyes: Pupils equal, round and reactive to light.? Sclera nonicteric.? ENT: Pharynx normal.? Moist mucous membranes. cvs: rrr, [id number] , no murmur res: clear to auscultation ,no rhonchii or wheezing abd: no rebound or guarding ,nt, bs present. ext pulses present , no cyanosis ,Gait well balanced well coordinated. neuro: axo3 , nonfocal. DS: Data Data Completed and Pending Labs on day of discharge: Laboratory Results - last 24 hr 01/19/21 01/20/21 01/20/21 19:38 14:08 17:42 Sodium Potassium Chloride Carbon Dioxide Anion Gap BUN Creatinine Estim Creat Clear Calc Estimated GFR Random Glucose Calcium Total Bilirubin Direct Bilirubin AST ALT Alkaline Phosphatase Total Protein Albumin Lipase 51 Beta HCG, Quant Cancelled < 2 COVID-19 (JABARI) Positive A COVID-19 Clin Com See Note 01/21/21 06:46 Sodium 137 Potassium 3.7 Chloride 102 Carbon Dioxide 24 Anion Gap 15 BUN 2 L Creatinine 0.55 Estim Creat Clear Calc 110.2 Estimated GFR > 60 Random Glucose 76 Calcium 8.6 Total Bilirubin 0.6 Direct Bilirubin 0.3 AST 204 H ALT 75 H Alkaline Phosphatase 126 H Total Protein 6.2 L Albumin 3.5 Lipase Beta HCG, Quant COVID-19 (JABARI) COVID-19 Clin Com Additional Comments Additional comments: Ct abd : IMPRESSION: 1. The previously seen focal diverticulitis of the sigmoid, distal descending colon on CAT scan 07/06/2020 have substantially improved. There are still subtle bowel wall thickening, edema and trace pericolonic fluid in the same area of the colon suggesting a mild diverticulitis. ? 2. Significant change of the liver parenchymal density. There is marked low attenuation of liver parenchyma due to fatty change now present. Discharge Plan Discharge Patient Disposition: Home, Self-Care Discharge Diagnosis: alcohol withdrawal, covid positive Referrals: Ollie Pulliam PA-C [Primary Care Provider] - 1 Week (Your doctor's office should call you to schedule a follow up appointment.) Discharge Medications: New folic acid 1 mg Tablet 1 mg PO DAILY Qty: 30 RF: 0 thiamine mononitrate (vit B1) 100 mg Tablet 100 mg PO DAILY Qty: 30 RF: 0 metronidazole 500 mg Tablet 500 mg PO Q12H Qty: 6 RF: 0 levofloxacin 500 mg Tablet 500 mg PO Q24H Qty: 3 RF: 0 Continued naltrexone 50 mg tablet 50 mg PO DAILY Qty: 30 RF: 3 sertraline [Zoloft] 25 mg tablet 25 mg PO DAILY 90 Days Qty: 90 RF: 0 ondansetron 4 mg tablet,disintegrating 4 mg PO Q8H PRN (Reason: nausea and vomiting) Qty: 20 RF: 0 lorazepam [Ativan] 2 mg tablet 2 mg PO TID PRN (Reason: alcohol withdrawal) Qty: 14 RF: 0 Discharge Orders: Discharge Order (Routine); Ordered 01/23/21 Ordered By: Berta Gutiérrez Diet: advance to usual diet Activity on Discharge: As tolerated Stand Alone Forms: Patient Portal Discharge page, Work/School Release Other Ambulatory Orders: Liver Panel (Routine) Timeframe: 1 Week Facility: [facility] - Location: Laboratory Ordered By: Berta Gutiérrez Activity Restrictions/Additional Instructions: Please follow-up with detox an outpatient psychiatry. Thank you for choosing this emergency department for evaluation. Please follow-up with primary care physician as needed. Return to the emergency department for any new, concerning, or worsening symptoms. Care Plan Goals: patient came with alcohol withdrawal seems to be improved with phenobarb. Abdominal pain probably will secondary to mild diverticulitis: will added p.o. antibiotics. covid test positive : advised for quarantine for 1 week , wear mask ,If any respiratory symptoms or fever please come to the nearest emergency room. Elevated liver function test and fatty liver change on abdominal CT scan thought to be related to alcohol use, I would avoid strongly stop alcohol use- monitor LFTs with PCP in 1 week and further management outpatient as per PCP consider outpatient GI evaluation as per PCP. Health Concerns: As above. Plan of Treatment: As above. Assessment: As above. Patient Instructions: Abuse of Alcohol (ED), Alcohol Withdrawal (ED) Discharge Date/Time: 01/23/21 11:00
--- NOTE | 2021-01-21 10:21 | P.PNIM_ITS ---
Subjective Subjective Date of Service: 01/21/21 Interval History: alcohol withdrawal, Elevated liver function test, abd pain Review of Systems Seems like abdominal pain seems to be improved significantly. Denies any nausea vomiting or diarrhea. Tremors are also improving LFT seems improving also in comparison to previous values. Physical Exam Vital Signs: Vital Signs: Last Vital Signs Temp 98.3 F 01/21/21 08:00 Pulse 103 H 01/21/21 08:00 Resp 19 01/21/21 08:00 BP 122/83 01/21/21 08:00 Pulse Ox 98 01/21/21 08:00 BMI result Body Mass Index 0.1 Physical exam: Appearance: Alert.? Oriented X3.? not in distress.? Eyes: Pupils equal, round and reactive to light.? Sclera nonicteric.? ENT: Pharynx normal.? Moist mucous membranes. cvs: rrr, [id number] , no murmur res: clear to auscultation ,no rhonchii or wheezing abd: no rebound or guarding ,nt, bs present. ext pulses present , no cyanosis ,Gait well balanced well coordinated. neuro: axo3 , nonfocal. Objective Data Active Medications Clonidine HCl (Clonidine Hcl 0.1 Mg Tablet) 0.1 mg PO DAILY [facility]; Protocol Folic Acid (Folic Acid 1 Mg Tablet) 1 mg PO DAILY [facility] Last Admin: 01/20/21 16:47 Dose: 1 mg Documented by: ARELIS Heparin Sodium (Porcine) (Heparin Sodium,Porcine 5,000 Unit/Ml Vial) 5,000 unit SUBCUT Q8H [facility] Last Admin: 01/21/21 02:26 Dose: 5,000 unit Documented by: KEVIN Lactated Ringer's (Lr) 1,000 mls @ 100 mls/hr IVCONT .Q10H [facility] Last Admin: 01/21/21 07:45 Dose: 100 mls/hr Documented by: KAREN Levofloxacin (Levofloxacin 500 Mg Tablet) 500 mg PO Q24H [facility] Medication (No Benzodiazepines) 1 each MISCELLANE DAILY [facility] Metronidazole (Metronidazole 500 Mg Tablet) 500 mg PO Q12H [facility] Omeprazole (Omeprazole 20 Mg Capsule.) 20 mg PO DAILY@0630 [facility] Last Admin: 01/21/21 06:12 Dose: 20 mg Documented by: HO.NAUMOC Pharmacy Consult (Consult Rx Perform Med Rec) 1 each MISCELLANE ONCE PRN PRN Reason: Consult order Pharmacy Consult (Consult Rx Perform Med Rec) 1 each MISCELLANE ONCE PRN PRN Reason: Consult order Phenobarbital (Phenobarbital 15 Mg Tablet) 45 mg PO BID [facility]; Protocol Stop: 01/22/21 21:01 Phenobarbital (Phenobarbital 15 Mg Tablet) 15 mg PO BID [facility]; Protocol Stop: 01/24/21 21:01 Phenobarbital (Phenobarbital 15 Mg Tablet) 15 mg PO DAILY [facility]; Protocol Stop: 01/26/21 09:01 Sodium Chloride (0.9 % Sodium Chloride Flush 3 Ml Syringe) 3 ml IVFLUSH QSHIFT [facility] Last Admin: 01/21/21 08:01 Dose: 3 ml Documented by: KAREN Thiamine HCl (Thiamine Hcl 100 Mg Tablet) 100 mg PO DAILY [facility] Last Admin: 01/20/21 16:47 Dose: 100 mg Documented by: ARELIS Labs CBC & Chem 7: 01/19/21 19:38 01/21/21 06:46 Labs: Laboratory Results - last 24 hr 01/19/21 01/20/21 01/20/21 19:38 14:08 17:42 Anion Gap Estim Creat Clear Calc Estimated GFR Random Glucose Calcium Total Bilirubin Direct Bilirubin AST ALT Alkaline Phosphatase Total Protein Albumin Lipase 51 Beta HCG, Quant Cancelled < 2 COVID-19 ([facility]I) Positive A COVID-19 Clin Com See Note 01/21/21 06:46 Anion Gap 15 Estim Creat Clear Calc 110.2 Estimated GFR > 60 Random Glucose 76 Calcium 8.6 Total Bilirubin 0.6 Direct Bilirubin 0.3 AST 204 H ALT 75 H Alkaline Phosphatase 126 H Total Protein 6.2 L Albumin 3.5 Lipase Beta HCG, Quant COVID-19 ([facility]I) COVID-19 Clin Com Assessment and Plan (1) Alcohol withdrawal: Status: Acute (2) Colitis: Status: Acute Assessment and Plan: ?1.? Alcohol withdrawal:. ciwa scale,Tachycardia improved ?elevated LFT also probably related to alcohol use. Started on phenobarb ?electrolytes seems fine, continue thiamine and folic acid. ? Monitor electrolytes and LFT. 2.? Anxiety: Continue patient's home anxiety medications will hold lorazepam for now since patient is on phenobarb. care team eval 3. ?abd pain /elevated lft's: ct abd : possible mild diverticultis/Marked low attenuation of liver parenchyma due to fatty change. This has significantly progressed since the prior CAT scan of 07/06/2020. Right lobe of liver measures 17 cm superior inferior. No focal liver lesion or intrahepatic bile duct dilatation. Seems like abdominal pain seems to be improved significantly. Denies any nausea vomiting or diarrhea. LFT seems improving also in comparison to previous values. started on po antibiotics Gi eval 4.? COVID positive:? Denies any respiratory symptoms or any GI symptoms or any? smell disturbance. ?will continue to monitor,? if any respiratory symptom will start dexamethasone. Quality Stroke Does the patient have a stroke diagnosis?: No VTE Prior VTE?: No VTE Risk Level:: Medical - moderate - high VTE Device Contraindication: N/A - Device Ordered VTE Drug Contraindication: N/A - Med Ordered
[2021-01-21] MEDS: cloNIDine HCL 0.1 MG TABLET PO (11:06)
[2021-01-21] MEDS: PHENobarbitaL 15 MG TABLET 45 MG PO ×2 (11:06→21:36)
[2021-01-21] MEDS: Thiamine HCL 100 MG TABLET PO (11:07)
[2021-01-21] MEDS: Folic Acid 1 MG TABLET PO (11:07)
[2021-01-21] MEDS: metroNIDAZOLE 500 MG TABLET PO ×2 (11:26→22:12)
[2021-01-21] MEDS: levoFLOXacin 500 MG TABLET PO (11:26)
[2021-01-21 11:27] VITALS: BP 128/89; PULSE 85; RESP 18; TEMP 36.7; O2SAT 98
[2021-01-21 15:44] VITALS: BP 101/71; PULSE 106; RESP 20; TEMP 36.9; O2SAT 99
--- NOTE | 2021-01-21 18:45 | CONS_ITS ---
DATE OF SERVICE: 01/21/2021 REFERRING PHYSICIAN: Berta Gutiérrez MD REASON FOR CONSULTATION: Elevated liver function tests and fatty liver on CT scan. HISTORY OF PRESENT ILLNESS: The patient is a pleasant 40-year-old woman, who was admitted to the hospital on January 20 after presenting to the emergency room with a history of alcohol abuse. She reports a period of sobriety for about 9 months and over the past month resumed drinking because of stress issues and reports drinking 12 individual nip bottles of vodka on a daily basis. She came to the emergency room for assistance with detoxification, but was noted to be in alcohol withdrawal and also tested positive for COVID. The patient describes a prior history of drinking 1.5 L of wine on a daily basis before her sobriety for a long time. She denies any prior history of cirrhosis and has not had abdominal swelling or GI bleeding. She has never been jaundiced. She was evaluated in the emergency department with laboratory studies and imaging. These are reviewed. Liver function tests were noted to be elevated with an AST of 204 and an ALT of 75, alkaline phosphatase was also elevated at 126, total bilirubin was normal. CT scanning showed fatty change to the liver and this was more severe than on a previous CAT scan from July 06, 2020. PAST MEDICAL HISTORY: 1. Alcohol abuse. 2. Fatty liver. 3. Diverticulitis. CURRENT MEDICATIONS: Her current medication list is reviewed in the chart. ALLERGIES: PENICILLIN AND SULFA. FAMILY HISTORY: This is reviewed with the patient. SOCIAL HISTORY: She denies current substance abuse other than alcohol. REVIEW OF SYSTEMS: SKIN: No pruritus. HEENT: Negative. CARDIOPULMONARY: No shortness of breath or chest pain. GASTROINTESTINAL: As above. GENITOURINARY: Negative. NEUROPSYCHIATRIC: Negative. PHYSICAL EXAMINATION: GENERAL: Reveals a pleasant female, sitting comfortably in bed, tolerating a solid diet. VITAL SIGNS: Stable. SKIN: Anicteric. HEENT: Shows no scleral icterus. NECK: Without lymphadenopathy or thyromegaly. LUNGS: Clear. HEART: Shows regular rate and rhythm. S1, S2. No murmur. ABDOMEN: Soft without focal masses or tenderness. Bowel sounds are present. No organomegaly is noted. EXTREMITIES: Without edema. LABORATORY DATA: Laboratory data and CT scanning are reviewed as above. IMPRESSION: 1. Alcoholic hepatitis. 2. Fatty liver. I discussed with the patient that her laboratory and CT abnormalities are related to her alcohol use and she should cease this. She appears interested in trying to obtain sobriety. She has no history of cirrhosis or complications otherwise, and I discussed with her that her fatty change should improve as well as her liver function tests with her cessation of alcohol intake. Previous laboratory studies have shown no evidence of chronic hepatitis B or C or iron overload. Autoimmune markers will be obtained and viral serologies to rule out other causes for her liver disease. Thanks for asking me to see her. I will follow her in the hospital with you. MD ALFREDA Stone/JOSE G / [id number]
[2021-01-21 19:21] VITALS: BP 102/67; PULSE 80; RESP 20; TEMP 37.3; O2SAT 96
[2021-01-21 22:31] LABS: Amphetamine Screen Urine Not Detected (Not Detect); Barbiturates, Urine POSITIVE (Not Detect); Benzodiazepines Screen Urine Not Detected (Not Detect); Cannabinoid Screen Urine Not Detected (Not Detect); Cocaine Screen Urine Not Detected (Not Detect); Fentanyl, urine Not Detected (Not Detect); Opiate Screen Urine Not Detected (Not Detect); Phencyclidine Screen Urine Not Detected (Not Detect)
[2021-01-21 23:07] VITALS: BP 123/87; PULSE 88; RESP 20; TEMP 36.4; O2SAT 100
[2021-01-22] VITALS (7 sets, daily range): BP systolic 93–136; BP diastolic 66–95; PULSE 76–99; RESP 16–20; TEMP 36.4–37.1; O2SAT 94–99
[2021-01-22] MEDS: Heparin Sodium,Porcine 5,000 UNIT/ML VIAL 5000 UNIT SUBCUT ×3 (03:30→17:52)
[2021-01-22] MEDS: Omeprazole 20 MG CAPSULE.DR PO (05:32)
[2021-01-22] MEDS: PHENobarbitaL 15 MG TABLET 45 MG PO ×2 (09:01→22:32)
[2021-01-22] MEDS: Lactated Ringers 1,000 ML 100 ML IVCONT ×2 (09:02→17:52)
[2021-01-22] MEDS: Folic Acid 1 MG TABLET PO (09:02)
[2021-01-22] MEDS: Thiamine HCL 100 MG TABLET PO (09:02)
[2021-01-22] MEDS: 0.9 % Sodium Chloride Flush 3 ML SYRINGE IVFLUSH ×2 (09:02→17:52)
[2021-01-22] MEDS: cloNIDine HCL 0.1 MG TABLET PO (09:02)
--- NOTE | 2021-01-22 09:45 | MHC.CM.PN ---
Female 40 DX ETOH W/D She is independent works and drives. DP home no service patient will arrange for transportation home. A GI consult was completed yesterday. DX Alcoholic Hepatitis.
[2021-01-22] MEDS: levoFLOXacin 500 MG TABLET PO (11:22)
[2021-01-22] MEDS: metroNIDAZOLE 500 MG TABLET PO ×2 (11:22→22:32)
--- NOTE | 2021-01-22 13:32 | P.PNIM_ITS ---
Subjective Subjective Date of Service: 01/22/21 Interval History: alcohol withdrawal,? Elevated liver function test, abd pain. Review of Systems Abdominal pain seems to be improving, tremors also improving denies any chest pain or shortness of breath or nausea or vomiting Physical Exam 2 Vital Signs: Vital Signs: Last Vital Signs Temp 97.5 F 01/22/21 11:36 Pulse 76 01/22/21 11:36 Resp 20 01/22/21 11:36 BP 107/66 01/22/21 11:36 Pulse Ox 97 01/22/21 11:36 BMI result Body Mass Index 0.1 Appearance: Alert.? Oriented X3.? not in distress.? Eyes: Pupils equal, round and reactive to light.? Sclera nonicteric.? ENT: Pharynx normal.? Moist mucous membranes. cvs: rrr, [id number] , no murmur res: clear to auscultation ,no rhonchii or wheezing abd: no rebound or guarding ,nt, bs present. ext pulses present , no cyanosis ,Gait well balanced well coordinated. neuro: axo3 , nonfocal. ? ? Objective Data Active Medications Clonidine HCl (Clonidine Hcl 0.1 Mg Tablet) 0.1 mg PO DAILY [facility]; Protocol Last Admin: 01/22/21 09:02 Dose: 0.1 mg Documented by: KAREN Folic Acid (Folic Acid 1 Mg Tablet) 1 mg PO DAILY [facility] Last Admin: 01/22/21 09:02 Dose: 1 mg Documented by: KAREN Heparin Sodium (Porcine) (Heparin Sodium,Porcine 5,000 Unit/Ml Vial) 5,000 unit SUBCUT Q8H [facility] Last Admin: 01/22/21 09:01 Dose: 5,000 unit Documented by: KAREN Lactated Ringer's (Lr) 1,000 mls @ 100 mls/hr IVCONT .Q10H [facility] Last Admin: 01/22/21 09:02 Dose: 100 mls/hr Documented by: KAREN Levofloxacin (Levofloxacin 500 Mg Tablet) 500 mg PO Q24H [facility] Last Admin: 01/22/21 11:22 Dose: 500 mg Documented by: KAREN Medication (No Benzodiazepines) 1 each MISCELLANE DAILY [facility] Metronidazole (Metronidazole 500 Mg Tablet) 500 mg PO Q12H [facility] Last Admin: 01/22/21 11:22 Dose: 500 mg Documented by: KAREN Omeprazole (Omeprazole 20 Mg Capsule.Dr) 20 mg PO DAILY@0630 [facility] Last Admin: 01/22/21 05:32 Dose: 20 mg Documented by: KEVIN Pharmacy Consult (Consult Rx Perform Med Rec) 1 each MISCELLANE ONCE PRN PRN Reason: Consult order Pharmacy Consult (Consult Rx Perform Med Rec) 1 each MISCELLANE ONCE PRN PRN Reason: Consult order Phenobarbital (Phenobarbital 15 Mg Tablet) 45 mg PO BID [facility]; Protocol Stop: 01/22/21 21:01 Last Admin: 01/22/21 09:01 Dose: 45 mg Documented by: KAREN Phenobarbital (Phenobarbital 15 Mg Tablet) 15 mg PO BID [facility]; Protocol Stop: 01/24/21 21:01 Phenobarbital (Phenobarbital 15 Mg Tablet) 15 mg PO DAILY [facility]; Protocol Stop: 01/26/21 09:01 Sodium Chloride (0.9 % Sodium Chloride Flush 3 Ml Syringe) 3 ml IVFLUSH QSHIFT [facility] Last Admin: 01/22/21 09:02 Dose: 3 ml Documented by: KAREN Thiamine HCl (Thiamine Hcl 100 Mg Tablet) 100 mg PO DAILY [facility] Last Admin: 01/22/21 09:02 Dose: 100 mg Documented by: KAREN Labs CBC & Chem 7: 01/19/21 19:38 01/21/21 06:46 Labs: Laboratory Results - last 24 hr 01/21/21 01/21/21 17:39 22:00 Urine Opiates Screen Not Detected Urine Fentanyl Screen Not Detected Ur Barbiturates Screen POSITIVE H Ur Phencyclidine Scrn Not Detected Ur Amphetamines Screen Not Detected Phenobarbital 19.9 U Benzodiazepines Scrn Not Detected Urine Cocaine Screen Not Detected U Marijuana (THC) Screen Not Detected Assessment and Plan (1) Alcohol withdrawal: Status: Acute (2) Colitis: Status: Acute Assessment and Plan: 1.? Alcohol withdrawal:. ciwa scale,Tachycardia improving ?elevated LFT also probably related to alcohol use. Started on phenobarb ?electrolytes seems fine, continue thiamine and folic acid. ? Monitor electrolytes and LFT. 2.? Anxiety: Continue patient's home anxiety medications will hold lorazepam for now since patient is on phenobarb. care team eval 3. ?abd pain /elevated lft's: ct abd : possible mild diverticultis/Marked low attenuation of liver parenchyma due to fatty change. This has significantly progressed since the prior CAT scan of 07/06/2020. Right lobe of liver measures 17 cm superior inferior. No focal liver lesion or intrahepatic bile duct dilatation. ?Seems like abdominal pain seems to be improved significantly.? Denies any nausea vomiting or diarrhea. ?LFT seems improving also in comparison to previous values. ?started on po antibiotics Gi eval noted -recomended avoid alcohol use ,fatty liver chnages should improve with no further alcohol use. 4.? COVID positive:? Denies any respiratory symptoms or any GI symptoms or any? smell disturbance. ?will continue to monitor,? if any respiratory symptom will start dexamethasone. Quality Stroke Does the patient have a stroke diagnosis?: No VTE Prior VTE?: No VTE Risk Level:: Medical - moderate - high VTE Device Contraindication: N/A - Device Ordered VTE Drug Contraindication: N/A - Med Ordered
[2021-01-22] MEDS: Acetaminophen 325 MG TABLET 650 MG PO (14:54)
[2021-01-23 03:21] VITALS: BP 137/93; PULSE 73; RESP 18; TEMP 36.7; O2SAT 98
[2021-01-23] MEDS: Heparin Sodium,Porcine 5,000 UNIT/ML VIAL 5000 UNIT SUBCUT ×2 (03:24→08:14)
[2021-01-23] MEDS: Omeprazole 20 MG CAPSULE.DR PO (06:37)
[2021-01-23] MEDS: Lactated Ringers 1,000 ML 100 ML IVCONT (06:38)
[2021-01-23 08:00] VITALS: BP 134/80; PULSE 71; RESP 18; TEMP 36.3; O2SAT 98
[2021-01-23] MEDS: cloNIDine HCL 0.1 MG TABLET PO (08:14)
[2021-01-23] MEDS: Thiamine HCL 100 MG TABLET PO (08:14)
[2021-01-23] MEDS: PHENobarbitaL 15 MG TABLET PO (08:14)
[2021-01-23] MEDS: 0.9 % Sodium Chloride Flush 3 ML SYRINGE IVFLUSH (08:14)
[2021-01-23] MEDS: Folic Acid 1 MG TABLET PO (08:14)
--- NOTE | 2021-01-23 09:45 | MHC.CM.PN ---
Patient has been medically cleared for dc to home today, no services.
== END 2021-01-23 11:00 | disposition home or self-care (01) | DRG 244 ==
LOC: HO.ED 01-20 13:38 → HO.EDOVER 01-20 16:23 → HO.IMC 01-20 18:27
PROVIDERS: Emergency Medicine; Internal Medicine; Admitting Provider Internal Medicine; Emergency Provider Emergency Medicine; PCP Physician Assistant; Visit Provider Internal Medicine
DX: K57.92 Diverticulitis of intestine, part unspecified, without perforation or abscess without bleeding (principal); U07.1 COVID-19; K70.10 Alcoholic hepatitis without ascites; K70.0 Alcoholic fatty liver; F10.229 Alcohol dependence with intoxication, unspecified; F10.232 Alcohol dependence with withdrawal with perceptual disturbance; Z88.0 Allergy status to penicillin; Z88.2 Allergy status to sulfonamides; Z87.891 Personal history of nicotine dependence; Z79.899 Other long term (current) drug therapy
CPT/HCPCS: 36415; 74176; 80048; 80053; 80076; 80184; 80307; 82077; 83690; 84702; 85025; 87635; 96361; 96372; 96374; 96376; 99285; J2060; J2560

== ENCOUNTER 2021-01-29 11:03 | Emergency (ER) | payer OTHER, SELFPAY ==
[2021-01-29 11:41] VITALS: BP 123/86; PULSE 86; RESP 18; TEMP 36.6; O2SAT 99; BMI 21.2
--- NOTE | 2021-01-29 11:47 | PC.NURSE ---
patients white necklace placed in teal sock. Belongings placed in locker 10 in pod
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
[2021-01-29 13:57] VITALS: BP 138/94; PULSE 118; RESP 20; TEMP 36.4; O2SAT 96
[2021-01-29 15:11] LABS: MANUAL DIFF FLAG NO
[2021-01-29 15:12] LABS: Basophils Absolute Auto 0.1 X10*3/uL (0.0-0.2); Basophils Percent Auto 1.5 % (0-2); Eosinophils Absolute Auto 0.3 X10*3/uL (0.0-0.4); Eosinophils Percent Auto 7.1 % (0-4); Hematocrit 44.1 % (37.0-47.0); Hemoglobin 14.7 g/dl (12.0-16.0); Imm Gran Abs Auto 0.01 X10*3/uL (0.00-0.03); Imm Gran Pct Auto 0.2 % (0.0-0.4); Lymphocytes Absolute Auto 2.1 X10*3/uL (1.2-4.9); Mean Corpuscular HGB Conc 33.3 g/dl (31.0-35.0); Mean Platelet Volume 9.1 fL (9.4-12.3); Monocytes Absolute Auto 0.6 X10*3/uL (0.1-1.2); Monocytes Percent Auto 11.9 % (2-11); Neutrophils Absolute Auto 1.5 x10*3/uL (2.0-8.3); Neutrophils Percent Auto 33.3 % (45-73); Platelet Count 497 X10*3/uL (160-400); Red Cell Distribution Width 19.6 % (11.0-16.0); White Blood Count 4.6 X10*3/uL (4.8-10.8)
[2021-01-29 15:23] LABS: COVID-19 Test Positive (Negative); IDNOW Serial# 9DD0AD1C
[2021-01-29 15:26] LABS: Ethanol 228 mg/dL
[2021-01-29 15:32] LABS: Alanine Aminotransferase 133 U/L (0-31); Alkaline Phosphatase 112 U/L (39-117); Anion Gap 15 (12-20); Aspartate Amino Transferase 168 U/L (5-31); Bilirubin Total 0.3 mg/dL (0.0-1.0); Blood Urea Nitrogen 7 mg/dL (9-16); Calcium 9.6 mg/dL (8.4-10.2); Carbon Dioxide 30 mmol/L (22-29); Chloride 104 mmol/L (96-108); Creatinine Clr Calc Pharmacy 94.7; Estimated Glomerular Filt Rate > 60; Glucose Random 136 mg/dL (60-115); Potassium 4.1 mmol/L (3.3-5.1); Sodium 145 mmol/L (135-145); Total Protein 7.2 g/dL (6.5-8.0)
[2021-01-29 16:54] VITALS: BP 134/72; PULSE 74; RESP 16; TEMP 36.6; O2SAT 99
[2021-01-29 18:00] VITALS: RESP 16
--- NOTE | 2021-01-29 21:46 | PC.NURSE ---
Pt denies SI, states I just said the wrong thing to the wrong person.
--- NOTE | 2021-01-29 21:49 | PC.NURSE ---
I assumed care of this pt at 1900. The pt is resting in a hallway stretche with 1:1 sitter at bedside due to report of S.I. Currently pt is alert and oriented x 3, has no complaints, is awaiting N referral and verbalizes an understanding of this. Pt, at this time, denies Si and states I'm not going to do anything, I just said the wrong thing to the wrong person. No chest pain. No SOB. Speech clear and appropriate. She is taking PO fluids without difficulty. Will continue to monitor.
[2021-01-29 21:59] VITALS: BP 141/98; PULSE 107; RESP 16; TEMP 36.6; O2SAT 99
--- NOTE | 2021-01-29 22:01 | PHA.MEDREC ---
MED REC COMPLETE, NO ISSUES Pharmacy Consult ? Medication Reconciliation Pharmacy has completed the medication reconciliation.
[2021-01-29 22:03] LABS: Amphetamine Screen Urine Not Detected (Not Detect); Barbiturates, Urine POSITIVE (Not Detect); Benzodiazepines Screen Urine Not Detected (Not Detect); Cannabinoid Screen Urine Not Detected (Not Detect); Cocaine Screen Urine Not Detected (Not Detect); Fentanyl, urine Not Detected (Not Detect); Opiate Screen Urine Not Detected (Not Detect); Phencyclidine Screen Urine Not Detected (Not Detect)
--- NOTE | 2021-01-29 22:26 | MHC.CARE ---
[facility] alerted CARE Team that no clinician would be available to see pt until tomorrow morning. CARE Team met with pt to determine appropriate treatment recommendations. Pt is alert and oriented x4. Pt is dressed in hospital attire laying on her bed in ED argueta. Eye contact and speech is within normal limits. Pt reports that she has been isolated recently due to her COVID+ status and today she relapsed with ETOH which led her to make suicidal statements to strip deburrer who sectioned her to [facility] ED for assessment. Pt has sobered up and denies SI, intent/plan. Pt denies HI. Pt reports that she is on a waiting list with [facility] for a therapist and that she will continue to utilize the crisis hotline as needed. CARE Team recommends that pt be discharged home. This plan has been discussed and agreed upon by ED provider Chandler López and Janel Kim APRN from psychiatry.
--- NOTE | 2021-01-29 22:56 | PC.NURSE ---
This pt was discharged. I did not witness or participate in this discharge.
== END 2021-01-29 22:52 | disposition home or self-care (01) ==
PROVIDERS: Physician Assistant; Emergency Provider Emergency Medicine
DX: F33.1 Major depressive disorder, recurrent, moderate (principal); R45.851 Suicidal ideations; F10.239 Alcohol dependence with withdrawal, unspecified; Y90.9 Presence of alcohol in blood, level not specified; F41.9 Anxiety disorder, unspecified; Z87.891 Personal history of nicotine dependence; Z20.822 Contact with and (suspected) exposure to COVID-19; Z79.899 Other long term (current) drug therapy
CPT/HCPCS: 36415; 80053; 80307; 82077; 85025; 87635; 99285

== ENCOUNTER 2021-02-04 16:03 | Emergency (ER) | payer OTHER, SELFPAY ==
[2021-02-04 16:34] VITALS: BP 131/86; BP 140/100; PULSE 115; PULSE 120; RESP 18; TEMP 37.1; O2SAT 92; O2SAT 96; BMI 22.1
[2021-02-04 17:05] LABS: COVID-19 Test Positive (Negative)
--- NOTE | 2021-02-04 17:42 | ECG_ITS ---
Test Reason : ETOH Blood Pressure : / mmHG Vent. Rate : 112 BPM Atrial Rate : 112 BPM P-R Int : 144 ms QRS Dur : 080 ms QT Int : 326 ms P-R-T Axes : 043 083 052 degrees QTc Int : 444 ms Sinus tachycardia Otherwise normal ECG When compared with ECG of 04-JAN-2012 11:44, No significant change was found Referred By: Ferdinand Tay Electronically Signed By:AMADOU RAMOS MD
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
[2021-02-04 18:00] VITALS: BP 119/87; PULSE 125; RESP 18; O2SAT 95
[2021-02-04] MEDS: LORazepam 2 MG/ML VIAL IVPUSH (18:02)
--- NOTE | 2021-02-04 18:02 | PC.NURSE ---
up to commode w/o diff increased hr to 140's with motion
[2021-02-04] MEDS: 0.9 % Sodium Chloride 1,000 ML 999 ML IV ×2 (18:03→23:04)
[2021-02-04 18:37] LABS: MANUAL DIFF FLAG NO
[2021-02-04 18:49] LABS: Basophils Absolute Auto 0.1 X10*3/uL (0.0-0.2); Basophils Percent Auto 1.4 % (0-2); Eosinophils Absolute Auto 0.1 X10*3/uL (0.0-0.4); Eosinophils Percent Auto 1.3 % (0-4); Hematocrit 42.4 % (37.0-47.0); Hemoglobin 14.7 g/dl (12.0-16.0); Imm Gran Abs Auto 0.02 X10*3/uL (0.00-0.03); Imm Gran Pct Auto 0.3 % (0.0-0.4); Lymphocytes Absolute Auto 1.6 X10*3/uL (1.2-4.9); Lymphocytes Percent Auto 25.8 % (20-40); Mean Corpuscular HGB Conc 34.7 g/dl (31.0-35.0); Mean Corpuscular Hemoglobin 30.4 pg (27.0-33.0); Mean Corpuscular Volume 87.6 fL (80.0-98.0); Mean Platelet Volume 9.4 fL (9.4-12.3); Monocytes Absolute Auto 0.6 X10*3/uL (0.1-1.2); Monocytes Percent Auto 9.7 % (2-11); Neutrophils Absolute Auto 3.9 x10*3/uL (2.0-8.3); Neutrophils Percent Auto 61.5 % (45-73); Platelet Count 368 X10*3/uL (160-400); Red Blood Count 4.84 X10*6/uL (4.20-5.50); Red Cell Distribution Width 19.4 % (11.0-16.0); White Blood Count 6.3 X10*3/uL (4.8-10.8)
[2021-02-04 18:54] LABS: Ethanol 408 mg/dL
[2021-02-04 18:55] LABS: Alanine Aminotransferase 52 U/L (0-31); Albumin Level 3.9 g/dL (3.5-5.0); Alkaline Phosphatase 117 U/L (39-117); Anion Gap 18 (12-20); Aspartate Amino Transferase 124 U/L (5-31); Bilirubin Total 0.5 mg/dL (0.0-1.0); Blood Urea Nitrogen 6 mg/dL (9-16); Calcium 7.9 mg/dL (8.4-10.2); Carbon Dioxide 24 mmol/L (22-29); Chloride 102 mmol/L (96-108); Creatinine Clr Calc Pharmacy 114.3; Estimated Glomerular Filt Rate > 60; Glucose Random 104 mg/dL (60-115); Potassium 3.8 mmol/L (3.3-5.1); Sodium 140 mmol/L (135-145); Total Protein 6.6 g/dL (6.5-8.0)
[2021-02-04 18:59] LABS: Troponin-I High Sensitivity 11.6 ng/L (<3.5-17.0)
[2021-02-04 19:46] VITALS: BP 123/82; PULSE 116; RESP 16; TEMP 36.8; O2SAT 95
[2021-02-04 20:00] VITALS: BP 119/68; PULSE 106; RESP 16; O2SAT 98
[2021-02-04 20:05] LABS: Appearance Urine CLEAR; Color Urine YELLOW; Glucose Urine UA NEG (NEG); Leukocyte Esterase Urine NEG (NEG); Nitrite Urine NEG (NEG); UACC Culture Trigger NO; UPreg QC Valid YES; Urine Blood TRACE (NEG); Urine Ketones 15 MG/DL (NEG); Urine Pregnancy NEGATIVE (NEGATIVE); Urine Protein NEG (NEG-TRACE)
[2021-02-04 20:15] LABS: Bacteria Urine 1+ /LPF; Squamous Epithelial Cell Urine 1+ /LPF
[2021-02-04 20:16] LABS: RBC Urine 0-2 /HPF (0); WBC Urine 0 /HPF (0-4)
[2021-02-04 20:17] LABS: Amphetamine Screen Urine Not Detected (Not Detect); Barbiturates, Urine POSITIVE (Not Detect); Benzodiazepines Screen Urine Not Detected (Not Detect); Cannabinoid Screen Urine Not Detected (Not Detect); Cocaine Screen Urine Not Detected (Not Detect); Fentanyl, urine Not Detected (Not Detect); Opiate Screen Urine Not Detected (Not Detect); Phencyclidine Screen Urine Not Detected (Not Detect)
[2021-02-04 20:27] LABS: HCG Quantitative < 2 mIU/mL
[2021-02-04 22:00] VITALS: BP 125/81; PULSE 116; RESP 16; O2SAT 97
[2021-02-04 23:21] LABS: Troponin-I High Sensitivity 11.7 ng/L (<3.5-17.0)
[2021-02-05] VITALS: BP 124/54; PULSE 117; RESP 16; O2SAT 97
[2021-02-05] MEDS: LORazepam 2 MG/ML VIAL 1 MG IVPUSH (02:29)
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
== END 2021-02-05 03:28 | disposition home or self-care (01) ==
PROVIDERS: Physician Assistant; Emergency Provider Emergency Medicine Emergency Medical Services
DX: U07.1 COVID-19 (principal); F10.20 Alcohol dependence, uncomplicated; Y90.8 Blood alcohol level of 240 mg/100 ml or more; R00.0 Tachycardia, unspecified; R11.2 Nausea with vomiting, unspecified
CPT/HCPCS: 36415; 80053; 80307; 81001; 81003; 81025; 82077; 83735; 84484; 84702; 85025; 87635; 93005; 96361; 96374; 96376; 99285; J2060

== ENCOUNTER 2021-02-15 15:49 | Emergency (ER) | payer OTHER, SELFPAY ==
[2021-02-15 16:03] VITALS: BP 130/94; RESP 18; TEMP 36.1; O2SAT 98; BMI 23.4
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
[2021-02-15 16:40] LABS: COVID-19 Test Negative (Negative)
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
[2021-02-15] MEDS: LORazepam 1 MG TABLET 2 MG PO (18:09)
--- NOTE | 2021-02-15 18:20 | PC.NURSE ---
Pt seen by Dr. Resendiz. pt complaining of itchy burning rash under her right armpit x3 days. meds given as documented. pt given snack. supper ordered
--- NOTE | 2021-02-15 18:36 | PC.NURSE ---
[facility] consult submitted.
[2021-02-15 20:21] LABS: Ethanol 280 mg/dL
[2021-02-15 23:00] LABS: Appearance Urine CLEAR; Color Urine YELLOW; Glucose Urine UA NEG (NEG); Leukocyte Esterase Urine NEG (NEG); Nitrite Urine NEG (NEG); Specific Gravity - Urine >= 1.030 (1.005-1.025); Urine Blood NEG (NEG); Urine Ketones 5 MG/DL (NEG); Urine Protein NEG (NEG-TRACE)
[2021-02-15 23:03] LABS: UPreg QC Valid YES; Urine Pregnancy NEGATIVE (NEGATIVE)
[2021-02-15 23:12] LABS: Amphetamine Screen Urine Not Detected (Not Detect); Barbiturates, Urine POSITIVE (Not Detect); Benzodiazepines Screen Urine POSITIVE (Not Detect); Cannabinoid Screen Urine Not Detected (Not Detect); Cocaine Screen Urine Not Detected (Not Detect); Fentanyl, urine Not Detected (Not Detect); Opiate Screen Urine Not Detected (Not Detect); Phencyclidine Screen Urine Not Detected (Not Detect)
[2021-02-16 00:37] LABS: Bacteria Urine 1+ /LPF; Mucus Urine TRACE /LPF; RBC Urine 0 /HPF (0); Squamous Epithelial Cell Urine 2+ /LPF; WBC Urine 0-2 /HPF (0-4)
[2021-02-16 01:55] VITALS: BP 113/79; PULSE 144; RESP 18; TEMP 36.6; O2SAT 97
[2021-02-16] MEDS: LORazepam 1 MG TABLET 2 MG PO ×3 (01:58→09:37)
[2021-02-16 05:48] VITALS: BP 131/94; PULSE 122; RESP 16; TEMP 36.7; O2SAT 99
--- NOTE | 2021-02-16 06:07 | PC.NURSE ---
Patient slept well, CIWA assessed at 0145 scored 12 received ativan 2 mg as ordered, Ciwa reassessed at 0548 scored 12 administered Ativan 2 mg PO, Patient HR is 122 staff notified to check HR at 0700, behavior appropriate and cooperative, [facility] referral completed and confirmed, patient will be evaluated in the morning, will continue to monitor
[2021-02-16 07:00] VITALS: PULSE 110
--- NOTE | 2021-02-16 07:12 | PC.NURSE ---
patient remains asleep at present respirations are even and unlabored, patient appears in no distress
--- NOTE | 2021-02-16 09:59 | MHC.CARE ---
CARE Team checked in with patient this morning about her current needs, she stated she wants to stop drinking and would like to go to a detox. Denied being in crisis, said she does not want to hurt herself or anyone else. Asked patient if she thought an inpatient psychiatric admission would help to get her back on track and she said that is not what she needs. CARE and Recovery Teams will look into detox bed availability. Providers updated.
--- NOTE | 2021-02-16 11:00 | MHC.RECOVSUP ---
? Reason for consult:Recovery Support o Current location:[facility] o Identified substance use concern: ETOH - Withdrawal - Seeking ATS (detox) - Support ? Intervention: o ATS bed search started/completed/in process o Community resources provided o Harm reduction discussion ? Plan: o Referral to [facility] o Bed search in progress to o Patient to follow up with HF after discharge ? Additional information:Patient seeking detox, but wants to go home first. Pt. given community resources
== END 2021-02-16 13:38 | disposition home or self-care (01) ==
PROVIDERS: Emergency Provider Emergency Medicine
DX: F10.20 Alcohol dependence, uncomplicated (principal); B02.9 Zoster without complications; Z20.822 Contact with and (suspected) exposure to COVID-19
CPT/HCPCS: 36415; 80307; 81001; 81025; 82077; 87635; 99285

== ENCOUNTER 2021-06-05 08:09 | Emergency (ER) | payer OTHER, SELFPAY ==
--- NOTE | 2021-06-05 08:18 | ED.ALCOHOL ---
HPI - Alcohol General Chief Complaint: ETOH/Substance Use Stated Complaint: alcohol withdrawal Time Seen by Provider: 06/05/21 08:18 Source: patient Mode of arrival: EMS Limitations: no limitations History of Present Illness HPI narrative: LWT from [place] yesterday complaint: alcohol intoxication and alcohol withdrawal Last drink: Days (ago) (last night) Amount of alcohol consumed: drinks 10-12 nips a day Chronic alcohol use: Yes Previous visits for alcohol intoxication: Yes Recent trauma: No Associated symptoms: nausea, vomiting and tremors Treatments prior to arrival: other (zofran by EMS) Related Data Home Medications Medication Instructions Recorded Confirmed naltrexone 50 mg tablet 50 mg PO DAILY 04/20/21 04/20/21 Previous Rx's Medication Instructions Recorded trazodone 50 mg tablet 50 mg PO BEDTIME 30 Days #30 tab 04/20/21 folic acid 1 mg tablet 1 mg PO DAILY 90 Days #90 tab 05/24/21 lorazepam 0.5 mg tablet 0.5 mg PO TID PRN 5 Days #15 tab 05/24/21 thiamine HCl (vitamin B1) 100 mg 100 mg PO DAILY #90 tab 05/24/21 tablet (Vitamin B-1) Allergies Allergy/AdvReac Type Severity Reaction Status Date / Time Sulfa (Sulfonamide Allergy Mild RASH Verified 04/20/21 15:41 Antibiotics) [SULFA (SULFONAMIDE ANTIBIOTICS)] Review of Systems Review of Systems: Constitutional : No Weight loss, No Fever, No Chills ENT/Mouth : No sore throat, No Rhinorrhea Eyes: No Swelling, No Redness Cardiovascular : No Chest Pain, No SOB, NoEdema Respiratory : No Cough, No Sputum, No Wheezing Gastrointestinal : Positive Nausea, Positive Vomiting, no Diarrhea, no abdominal Pain, No Hematochezia, No Melena Genitourinary : No Dysuria, No Urinary Frequency, No Hematuria, No Urgency Musculoskeletal : No joint pain, No Myalgias, No Joint Swelling Skin : No Skin Lesions, No rash Neuro : pos Weakness, No Numbness, No Dizziness, No Headache Psych : pos Anxiety/Panic, No Depression Heme/Lymph: No Bruising, No Lymphadenopathy Endocrine : No Polyuria, No Polydipsia All other systems reviewed and are negative. [facility] Past Medical History Attestation statement: The following information was validated with the patient. Medical History Alcohol abuse Alcohol abuse Anxiety Surgical History No pertinent past surgical history Family History Family History Father Medical history unknown Mother Medical history unknown Paternal Grandfather Cancer Sister Epilepsy Daughter In good health Son In good health Social History Social History Household Members: None Housing: Apartment Do you presently have visiting nurse or other home services: No Alcohol intake: current Alcohol intake frequency: 3 or more drinks per day Alcohol type: other Patient Tobacco Use Status: Former Tobacco user e-Cigarette/Vaping Use: Never Used Use of substances other than those prescribed or required for medical reasons: No Advance Directives: Yes Advance Directives on File: Yes Advance Directives Date on File: 01/25/21 Patient : No service: No Current occupational status: unemployed Physical Exam ED Vital Signs: Vital Signs - 24 hr 06/05/21 08:20 06/05/21 10:08 06/05/21 13:02 Temperature 98.6 F 98.6 F Pulse Rate 122 H 120 H 131 H Respiratory Rate 16 22 H 16 Blood Pressure 145/98 H 123/85 151/99 H Pulse Oximetry 96 97 98 06/05/21 13:36 Temperature Pulse Rate 130 H Respiratory Rate 16 Blood Pressure 112/75 Pulse Oximetry 97 BMI result Body Mass Index 21.9 Appearance: Alert. Oriented X3. anxious mild acute distress. Eyes: Pupils equal, round and reactive to light. ENT: Pharynx mild dry MM Neck: Normal inspection. Neck supple. CVS: tachycardic heart rate and rhythm. Pulses normal. Respiratory: No respiratory distress. Breath sounds normal. Abdomen: Soft and nontender. Emesis is yellow clear Skin: Skin warm and dry. Normal skin color. Normal skin turgor. Extremities: No lower extremity edema. No calf ttp Neuro: Oriented X 3. No motor deficit. No sensory deficit. Course Course Course Narrative: able to tolerate PO will give PO librium, refer to recovery coaches, much improved repeat IV ativan for shakiness but feels much better PO ativan ordered, has ride to detox will repeat VS - she is anxious to go to facility which could be contributing to her VS at this time will repeat. eating and drinking up and walking BP down HR still up to 110/120s when people in room suspect anxiety - plan for detox now MDM - Alcohol MDM Narrative Medical decision making narrative: 41 yo female with hx of ETOH abuse and anxiety presents with tachycardia, n/v, tremors, ETOH withdrawal - at this time will obtain labs, hydrate, IV ativan, thiamine, lytes as needed, dispo per results and clinical improvement. She denies prior hx of ETOH withdrawal seizures. Recovery coaches may be able to help get her into detox Lab Data Result diagrams: 06/05/21 08:46 06/05/21 08:46 Labs: Lab Results 06/05/21 06/05/21 06/05/21 Range/Units 08:46 08:46 08:46 WBC 5.0 (4.8-10.8) X10*3/uL RBC 4.16 L (4.20-5.50) X10*6/uL Hgb 12.6 (12.0-16.0) g/dl Hct 37.9 (37.0-47.0) % MCV 91.1 (80.0-98.0) fL MCH 30.3 (27.0-33.0) pg MCHC 33.2 (31.0-35.0) g/dl RDW 13.3 (11.0-16.0) % Plt Count 198 D (160-400) X10*3/uL MPV 9.4 (9.4-12.3) fL Immature Gran % (Auto) 0.4 (0.0-0.4) % Neut % (Auto) 76.4 H (45-73) % Lymph % (Auto) 17.2 L (20-40) % [place] % (Auto) 5.4 (2-11) % Eos % (Auto) 0.2 (0-4) % Baso % (Auto) 0.4 (0-2) % Lymph # (Auto) 0.9 L (1.2-4.9) X10*3/uL [place] # (Auto) 0.3 (0.1-1.2) X10*3/uL Eos # (Auto) 0.0 (0.0-0.4) X10*3/uL Baso # (Auto) 0.0 (0.0-0.2) X10*3/uL Abs Immat Gran (auto) 0.02 (0.00-0.03) X10*3/uL Absolute Neuts (auto) 3.8 (2.0-8.3) x10*3/uL Absolute Nucleated RBC 0.000 (0.0-0.012) X10*3/uL Nucleated RBC % (auto) 0.0 (0.0-0.2) /100WBC Sodium 138 (135-145) mmol/L Potassium 3.5 (3.3-5.1) mmol/L Chloride 100 (96-108) mmol/L Carbon Dioxide 19 L (22-29) mmol/L Anion Gap 23 H (12-20) BUN 5 L (9-16) mg/dL Creatinine 0.58 (0.5-1.4) mg/dL Estim Creat Clear Calc 98.9 Estimated GFR > 60 Random Glucose 155 H (60-115) mg/dL Calcium 8.1 L (8.4-10.2) mg/dL Magnesium 1.5 L (1.6-2.6) mg/dL Total Bilirubin 0.5 (0.0-1.0) mg/dL Direct Bilirubin 0.2 (0.0-0.5) mg/dL AST 183 H (5-31) U/L ALT 71 H (0-31) U/L Alkaline Phosphatase 114 (39-117) U/L Total Protein 6.7 (6.5-8.0) g/dL Albumin 3.8 (3.5-5.0) g/dL Lipase 34 (8-78) U/L Ethyl Alcohol mg/dL COVID-19 (AJBARI) Negative (Negative) COVID-19 Clin Com See Note 06/05/21 Range/Units 08:46 WBC (4.8-10.8) X10*3/uL RBC (4.20-5.50) X10*6/uL Hgb (12.0-16.0) g/dl Hct (37.0-47.0) % MCV (80.0-98.0) fL MCH (27.0-33.0) pg MCHC (31.0-35.0) g/dl RDW (11.0-16.0) % Plt Count (160-400) X10*3/uL MPV (9.4-12.3) fL Immature Gran % (Auto) (0.0-0.4) % Neut % (Auto) (45-73) % Lymph % (Auto) (20-40) % [place] % (Auto) (2-11) % Eos % (Auto) (0-4) % Baso % (Auto) (0-2) % Lymph # (Auto) (1.2-4.9) X10*3/uL [place] # (Auto) (0.1-1.2) X10*3/uL Eos # (Auto) (0.0-0.4) X10*3/uL Baso # (Auto) (0.0-0.2) X10*3/uL Abs Immat Gran (auto) (0.00-0.03) X10*3/uL Absolute Neuts (auto) (2.0-8.3) x10*3/uL Absolute Nucleated RBC (0.0-0.012) X10*3/uL Nucleated RBC % (auto) (0.0-0.2) /100WBC Sodium (135-145) mmol/L Potassium (3.3-5.1) mmol/L Chloride (96-108) mmol/L Carbon Dioxide (22-29) mmol/L Anion Gap (12-20) BUN (9-16) mg/dL Creatinine (0.5-1.4) mg/dL Estim Creat Clear Calc Estimated GFR Random Glucose (60-115) mg/dL Calcium (8.4-10.2) mg/dL Magnesium (1.6-2.6) mg/dL Total Bilirubin (0.0-1.0) mg/dL Direct Bilirubin (0.0-0.5) mg/dL AST (5-31) U/L ALT (0-31) U/L Alkaline Phosphatase (39-117) U/L Total Protein (6.5-8.0) g/dL Albumin (3.5-5.0) g/dL Lipase (8-78) U/L Ethyl Alcohol 172 mg/dL COVID-19 (JABARI) (Negative) COVID-19 Clin Com ECG Data ECG #1: Attestation: I personally reviewed and interpreted this ECG as follows: ECG interpretation date: 06/05/21 ECG interpretation time: 08:39 Interpretation: Rate: 117 Rhythm: sinus tachycardia [place]: normal Normal P waves. Normal DANIELA. Normal QRS complex. ST T wave : normal no JOSE qTC: normal prior studies: no acute ischemia The study has been interpreted contemporaneously by me. Critical Care Time Critical Care Time Critical Care Time: Yes Total Critical Care Time: 60 Attestation: IVF x 2L, IV magnesium, ativan IV x 2, medical consult I attest to this time spent taking care of the patient Discharge Plan Discharge Clinical Impression: Hypomagnesemia, Elevated liver enzymes Alcohol withdrawal Qualifiers: Complication of substance-induced condition: uncomplicated Qualified Code(s): F10.230 - Alcohol dependence with withdrawal, uncomplicated Patient Disposition: Xfer Other Transfer Details: detox facility Instructions: Alcohol Withdrawal (ED), Hypomagnesemia (ED) Additional Instructions: return to ED for any worsening symptoms or concerns please go to detox Prescriptions: No Action lorazepam 0.5 mg tablet 0.5 mg PO TID PRN (Reason: alcohol withdrawal) 5 Days Qty: 15 0RF folic acid 1 mg tablet 1 mg PO DAILY 90 Days Qty: 90 1RF thiamine HCl (vitamin B1) [Vitamin B-1] 100 mg tablet 100 mg PO DAILY Qty: 90 0RF naltrexone 50 mg tablet 50 mg PO DAILY 0RF trazodone 50 mg tablet 50 mg PO BEDTIME 30 Days Qty: 30 1RF
[2021-06-05 08:20] VITALS: BP 145/98; BP 170/100; PULSE 122; PULSE 150; RESP 16; TEMP 37; O2SAT 96; O2SAT 98; BMI 21.9
--- NOTE | 2021-06-05 08:28 | ECG_ITS ---
Test Reason : TACHY Blood Pressure : / mmHG Vent. Rate : 117 BPM Atrial Rate : 117 BPM P-R Int : 124 ms QRS Dur : 078 ms QT Int : 326 ms P-R-T Axes : 054 080 038 degrees QTc Int : 454 ms Sinus tachycardia Otherwise normal ECG When compared with ECG of 04-FEB-2021 18:16, No significant change was found Referred By: Kayla Kenney Electronically Signed By:Apolinar Shay
[2021-06-05] MEDS: Thiamine HCL 200 MG in 0.9 % Sodium Chloride 100 ML 204 MG IV (08:42)
[2021-06-05] MEDS: LORazepam 2 MG/ML VIAL IVPUSH ×2 (08:42→11:37)
[2021-06-05] MEDS: Famotidine/PF 20 MG/2 ML VIAL IVPUSH (08:42)
[2021-06-05] MEDS: 0.9 % Sodium Chloride 1,000 ML 999 ML IVCONT ×2 (08:43→09:38)
[2021-06-05 08:51] LABS: MANUAL DIFF FLAG NO
[2021-06-05 08:52] LABS: Basophils Percent Auto 0.4 % (0-2); Eosinophils Percent Auto 0.2 % (0-4); Hematocrit 37.9 % (37.0-47.0); Hemoglobin 12.6 g/dl (12.0-16.0); Imm Gran Abs Auto 0.02 X10*3/uL (0.00-0.03); Imm Gran Pct Auto 0.4 % (0.0-0.4); Lymphocytes Absolute Auto 0.9 X10*3/uL (1.2-4.9); Lymphocytes Percent Auto 17.2 % (20-40); Mean Corpuscular HGB Conc 33.2 g/dl (31.0-35.0); Mean Corpuscular Hemoglobin 30.3 pg (27.0-33.0); Mean Corpuscular Volume 91.1 fL (80.0-98.0); Mean Platelet Volume 9.4 fL (9.4-12.3); Monocytes Absolute Auto 0.3 X10*3/uL (0.1-1.2); Monocytes Percent Auto 5.4 % (2-11); Neutrophils Absolute Auto 3.8 x10*3/uL (2.0-8.3); Neutrophils Percent Auto 76.4 % (45-73); Platelet Count 198 X10*3/uL (160-400); Red Blood Count 4.16 X10*6/uL (4.20-5.50); Red Cell Distribution Width 13.3 % (11.0-16.0)
[2021-06-05 09:04] LABS: Ethanol 172 mg/dL
[2021-06-05 09:11] LABS: COVID-19 Test Negative (Negative); IDNOW Serial# 16C4AD1C
[2021-06-05 09:16] LABS: Alanine Aminotransferase 71 U/L (0-31); Albumin Level 3.8 g/dL (3.5-5.0); Alkaline Phosphatase 114 U/L (39-117); Anion Gap 23 (12-20); Aspartate Amino Transferase 183 U/L (5-31); Bilirubin Direct 0.2 mg/dL (0.0-0.5); Bilirubin Total 0.5 mg/dL (0.0-1.0); Blood Urea Nitrogen 5 mg/dL (9-16); Calcium 8.1 mg/dL (8.4-10.2); Carbon Dioxide 19 mmol/L (22-29); Chloride 100 mmol/L (96-108); Creatinine Clr Calc Pharmacy 98.9; Estimated Glomerular Filt Rate > 60; Glucose Random 155 mg/dL (60-115); Lipase 34 U/L (8-78); Magnesium 1.5 mg/dL (1.6-2.6); Potassium 3.5 mmol/L (3.3-5.1); Sodium 138 mmol/L (135-145); Total Protein 6.7 g/dL (6.5-8.0)
[2021-06-05] MEDS: Magnesium Sulfate/H2O 2 GM/50 ML PIGGYBACK IV (09:38)
[2021-06-05 10:08] VITALS: BP 123/85; PULSE 120; RESP 22; O2SAT 97
[2021-06-05] MEDS: chlordiazePOXIDE HCl 25 MG CAPSULE 75 MG PO (10:32)
--- NOTE | 2021-06-05 10:40 | PC.NURSE ---
given po librium per orders, tolerating po w/o issue. able to ambulate to bathroom w slow, steady gait.
[2021-06-05] MEDS: 0.9 % Sodium Chloride 1,000 ML 999 ML IV (11:12)
[2021-06-05 13:02] VITALS: BP 151/99; PULSE 131; RESP 16; TEMP 37; O2SAT 98
[2021-06-05] MEDS: LORazepam 1 MG TABLET 2 MG PO (13:27)
[2021-06-05 13:36] VITALS: BP 112/75; PULSE 130; RESP 16; O2SAT 97
--- NOTE | 2021-06-05 13:57 | MHC.RECOVSUP ---
Recovery Support note: Patient is a 41 year old Malagasy speaking female who presented to [facility] ED with concern of alcohol withdrawal. This travel writer met with patient to discuss substance use and treatment options. Patient reported she was hoping to be admitted to the hospital. This travel writer explained the benefit of going to an ATS facility for treatment. Patient is agreeable to being referred out to ATS facilities. ATS bedsearch conducted and only one facility has a female bed at this time. Patient completed intake with Giancarlo Kraus and has been accepted for admission. Patient to be transported via [employer]. Encouraged patient to contact Recovery Team when treatment has concluded for assistance returning to this area.
== END 2021-06-05 14:06 | disposition other institution (70) ==
PROVIDERS: Emergency Provider Emergency Medicine; PCP Physician Assistant
DX: F10.230 Alcohol dependence with withdrawal, uncomplicated (principal); Y90.6 Blood alcohol level of 120-199 mg/100 ml; E83.42 Hypomagnesemia; R74.8 Abnormal levels of other serum enzymes; F41.9 Anxiety disorder, unspecified; Z20.822 Contact with and (suspected) exposure to COVID-19
CPT/HCPCS: 36415; 80048; 80076; 82077; 83690; 83735; 85025; 87635; 93005; 96361; 96365; 96366; 96375; 96376; 99284; 99291; J2060; J3411; J3475

== ENCOUNTER 2021-06-19 12:26 | Inpatient (IN) | payer OTHER, SELFPAY ==
--- NOTE | ~2021-06-19 | XR_ITS ---
EXAMINATION: XR CHEST CLINICAL INFORMATION: Cough. Tachycardia. COMPARISON: Report from a chest radiograph dated 05/04/2006. TECHNIQUE: 2 views of the chest were obtained. FINDINGS: The lungs are clear. The cardiomediastinal silhouette is normal in size. There is no pleural effusion or pneumothorax. No acute osseous abnormality. XR/XR chest 2V IMPRESSION: No acute cardiopulmonary findings.
[2021-06-19 12:31] VITALS: BP 154/113; PULSE 129; RESP 16; TEMP 36.7; O2SAT 95; BMI 22.6
--- NOTE | 2021-06-19 12:40 | PC.NURSE ---
Pt now reporting that she is definitely not suicidal because she has children.
--- NOTE | 2021-06-19 12:41 | ECG_ITS ---
Test Reason : Tachycardia Blood Pressure : / mmHG Vent. Rate : 102 BPM Atrial Rate : 102 BPM P-R Int : 124 ms QRS Dur : 084 ms QT Int : 356 ms P-R-T Axes : 051 090 051 degrees QTc Int : 463 ms Sinus tachycardia Rightward axis Borderline ECG When compared with ECG of 05-JUN-2021 08:29, No significant change was found Referred By: Millie Schwarz Electronically Signed By:ALEM REYES
--- NOTE | 2021-06-19 12:44 | ED.ALCOHOL ---
HPI - Alcohol General Chief Complaint: Psychiatric Symptoms <Millie SchwarzCHERIE - Last Filed: 06/19/21 21:21> Stated Complaint: CRISIS <Millie SchwarzCHERIE - Last Filed: 06/19/21 21:21> Time Seen by Provider: 06/19/21 12:35 <Millie SchwarzCHERIE - Last Filed: 06/19/21 21:21> Source: patient and EMS <Millie SchwarzCHERIE - Last Filed: 06/19/21 21:21> Mode of arrival: EMS <Millie SchwarzCHERIE - Last Filed: 06/19/21 21:21> Limitations: no limitations <Millie SchwarzCHERIE - Last Filed: 06/19/21 21:21> History of Present Illness HPI narrative: patient presents to the Emergency Department transported by EMS. Per EMS was initially reporting suicidal ideations due to the recent of a friend. When asked during exam patient denies suicidal or homicidal ideations. However, she did express SI to the nurse during triage. Denies any past suicidal attempts. Denies recreational drug usage. Reporting that she typically drinks 15 shots vodka per day and had 8 shots so far today. she is requesting assistance with detox, states she has been attending AA meetings. Denies history of withdrawal seizures. Additionally is concerned that she may have been exposed to somebody who had the flu, reporting generalized body aches. <Millie Thapa CHERIE Schwarz - Last Filed: 06/19/21 21:21> MD complaint: alcohol intoxication <Millie LaneCHERIE padilla - Last Filed: 06/19/21 21:21> Related Data Home Medications: Home Medications Medication Instructions Recorded Confirmed naltrexone 50 mg tablet 50 mg PO DAILY 04/20/21 04/20/21 Previous Rx's Medication Instructions Recorded trazodone 50 mg tablet 50 mg PO BEDTIME 30 Days #30 tab 04/20/21 folic acid 1 mg tablet 1 mg PO DAILY 90 Days #90 tab 05/24/21 lorazepam 0.5 mg tablet 0.5 mg PO TID PRN 5 Days #15 tab 05/24/21 thiamine HCl (vitamin B1) 100 mg 100 mg PO DAILY #90 tab 04/04/22 tablet (Vitamin B-1) <Millie Schwarz CNP - Last Filed: 06/19/21 21:21> Allergies/Adverse Reactions: Allergies Allergy/AdvReac Type Severity Reaction Status Date / Time Sulfa (Sulfonamide Allergy Mild RASH Verified 04/20/21 15:41 Antibiotics) [SULFA (SULFONAMIDE ANTIBIOTICS)] <Millie Schwarz CNP - Last Filed: 06/19/21 21:21> Review of Systems Review of Systems: Constitutional: No fever, chills HEENT: No vision changes. no sore throat Skin: No rash or itching. Cardiovascular: No chest pain. No palpitations Respiratory: No shortness of breath, no cough Gastrointestinal: No nausea, vomiting or diarrhea. No abdominal pain Genitourinary: No burning micturition. Neurologic: No headache, dizziness Musculoskeletal: positive body aches Psychiatric: positive SI <Millie Schwarz CNP - Last Filed: 06/19/21 21:21> Yes all other systems are reviewed and are negative <Millie Schwarz CNP - Last Filed: 06/19/21 21:21> [facility] Past Medical History Source: old records reviewed <Millie Schwarz CNP - Last Filed: 06/19/21 21:21> Medical History: Medical History Alcohol abuse Alcohol abuse Anxiety <Millie Schwarz CNP - Last Filed: 06/19/21 21:21> Surgical History: Surgical History No pertinent past surgical history <Millie Schwarz CNP - Last Filed: 06/19/21 21:21> Family History Family History: Family History Father Medical history unknown Mother Medical history unknown Paternal Grandfather Cancer Sister Epilepsy Daughter In good health Son In good health <Millie Schwarz CNP - Last Filed: 06/19/21 21:21> Social History Social History: Social History Household Members: None Housing: Apartment Do you presently have visiting nurse or other home services: No Alcohol intake: current Alcohol intake frequency: 3 or more drinks per day Alcohol type: other Patient Tobacco Use Status: Former Tobacco user e-Cigarette/Vaping Use: Never Used Advance Directives: Yes Advance Directives on File: Yes Advance Directives Date on File: 01/25/21 Patient : No service: No Current occupational status: unemployed <Millie Schwarz CNP - Last Filed: 06/19/21 21:21> Physical Exam ED Vital Signs: Vital Signs - 24 hr 06/19/21 12:31 06/19/21 13:31 06/19/21 14:28 Temperature 98.0 F 98.2 F 98.1 F Pulse Rate 129 H 113 H 126 H Respiratory Rate 16 17 23 H Blood Pressure 154/113 H 103/92 H 123/81 Pulse Oximetry 95 96 97 06/19/21 17:12 06/19/21 19:43 06/19/21 22:08 Temperature 98.6 F Pulse Rate 119 H 129 H 124 H Respiratory Rate 19 20 14 Blood Pressure 114/67 151/85 H 130/65 Pulse Oximetry 95 92 93 BMI result Body Mass Index 22.6 Vital signs have been reviewed as normal and appeared to be correct. hypertensive.? tachycardic. Respiration rate normal. Temperature normal.? Oxygen saturation normal. <Millie Schwarz CNP - Last Filed: 06/19/21 21:21> Vital Signs - 24 hr 06/19/21 12:31 06/19/21 13:31 06/19/21 14:28 Temperature 98.0 F 98.2 F 98.1 F Pulse Rate 129 H 113 H 126 H Respiratory Rate 16 17 23 H Blood Pressure 154/113 H 103/92 H 123/81 Pulse Oximetry 95 96 97 06/19/21 17:12 06/19/21 19:43 06/19/21 22:08 Temperature 98.6 F Pulse Rate 119 H 129 H 124 H Respiratory Rate 19 20 14 Blood Pressure 114/67 151/85 H 130/65 Pulse Oximetry 95 92 93 BMI result Body Mass Index 22.6 <LIS [place] - Last Filed: 06/19/21 22:56> Appearance: Alert.?Oriented to person. appears intoxicated Eyes: Pupils equal, round and reactive to light.? ENT: Pharynx normal.?? Neck: Normal inspection.? Neck supple.?? CVS: Heart sounds normal. tachycardia..? Pulses normal.?? Respiratory: No respiratory distress.? Lung sounds clear to auscultation bilaterally?? Abdomen: Soft and non-tender. Normoactive bowel sounds. No pulsatile mass.?? Skin: Skin warm and dry.? facial flushing .?? Extremities: No lower extremity edema.? Neuro: Moves all extremities spontaneously. Sensation intact bilaterally. CN II-XII intact. No focal neuro deficits. <Millie Schwarz CNP - Last Filed: 06/19/21 21:21> Course Course Course Narrative: patient is a 41-year-old female with a past medical history of anxiety and alcohol abuse. She presents to the emergency department appearing acutely intoxicated, with intermittent expressed concern of suicidal ideation, but been denying at other times. In addition she is reporting generalized body aches. She is tearful during exam. She is hypertensive and tachycardic but is afebrile, no hypoxia or tachypnea. Will obtain CBC, CMP, EKG and troponin, urinalysis and drug of abuse screen, ethanol level. Patient will need to be evaluated by crisis. <Millie Schwarz CNP - Last Filed: 06/19/21 21:21> Reevaluation(s) Reevaluation #1: tachycardia persists up to 130's. will order 1L NS IV fluids ordered in addition to Ativan 2 mg IV. CBC reveals thrombocytosis at 630, similarly elevated with prior labs January 2021. transaminases elevated however improved in comparison with prior labs. Otherwise unremarkable CMP. Ethanol level 413 at 1330. <Millie Schwarz CNP - Last Filed: 06/19/21 21:21> Time: 13:53 <Millie Schwarz CNP - Last Filed: 06/19/21 21:21> Reevaluation #2: patient continues to be tachycardic as high as 130s even while at rest. No reports of anxiety at this time. Has received a total of 2 L normal saline IV fluid bolus and Ativan 4 mg IV total. She does report that she has been coughing a lot lately. Will obtain chest x-ray at this time to exclude consolidation, infiltrate. Suspect that her tachycardia is likely due to dehydration as she does not clinically have symptoms consistent with alcohol withdrawal and CIWA was unremarkable. Will order additional 1 L normal saline IV fluid bolus <Millie Schwarz CNP - Last Filed: 06/19/21 21:21> Time: 19:38 <Millie Schwarz CNP - Last Filed: 06/19/21 21:21> Reevaluation #3: Chest x-ray is unremarkable. CIWA of 6 most notably for tremors of the upper extremities, ethanol level and clinical presentation not consistent with acute withdrawal. Tachycardia persists, will obtain repeat EKG to confirm sinus tachycardia, obtain TSH to exclude abnormal thyroid function. Patient signed out to [facility] pending IV fluids, labs, repeat EKG, improvement of tachycardia, and requires [facility] eval once medically cleared and clinically sober. <Millie Schwarz CNP - Last Filed: 06/19/21 21:21> Time: 20:22 <Millie Schwarz CNP - Last Filed: 06/19/21 21:21> Additional Reevaluation(s): 2349 Patient diaphoretic, tremulous, CIWA of 12, before her CIWA was 13. Despite fluids and Ativan patient continues to actively withdrawal. At this time patient will be started on a phenobarb protocol. And will be admitted to the hospital for acute alcohol withdrawal. Patient is tachycardic and hypertensive consistent with autonomic dysfunction. Will be admited. <LIS [place] - Last Filed: 06/19/21 22:56> MDM - Alcohol Medical Records Attestation: I reviewed the patient's medical records. <Millie Schwarz CNP - Last Filed: 06/19/21 21:21> Lab Data Attestation: I reviewed the patient's lab results. <Millie Schwarz CNP - Last Filed: 06/19/21 21:21> Result diagrams: : 06/19/21 13:30 06/19/21 13:30 <Millie Schwarz CNP - Last Filed: 06/19/21 21:21> Labs: Lab Results 06/19/21 06/19/21 06/19/21 Range/Units 13:22 13:22 13:23 WBC (4.8-10.8) X10*3/uL RBC (4.20-5.50) X10*6/uL Hgb (12.0-16.0) g/dl Hct (37.0-47.0) % MCV (80.0-98.0) fL MCH (27.0-33.0) pg MCHC (31.0-35.0) g/dl RDW (11.0-16.0) % Plt Count (160-400) X10*3/uL MPV (9.4-12.3) fL Immature Gran % (Auto) (0.0-0.4) % Neut % (Auto) (45-73) % Lymph % (Auto) (20-40) % [place] % (Auto) (2-11) % Eos % (Auto) (0-4) % Baso % (Auto) (0-2) % Lymph # (Auto) (1.2-4.9) X10*3/uL [place] # (Auto) (0.1-1.2) X10*3/uL Eos # (Auto) (0.0-0.4) X10*3/uL Baso # (Auto) (0.0-0.2) X10*3/uL Abs Immat Gran (auto) (0.00-0.03) X10*3/uL Absolute Neuts (auto) (2.0-8.3) x10*3/uL Absolute Nucleated RBC (0.0-0.012) X10*3/uL Nucleated RBC % (auto) (0.0-0.2) /100WBC Smear Tech's Comments Sodium (135-145) mmol/L Potassium (3.3-5.1) mmol/L Chloride (96-108) mmol/L Carbon Dioxide (22-29) mmol/L Anion Gap (12-20) BUN (9-16) mg/dL Creatinine (0.5-1.4) mg/dL Estim Creat Clear Calc Estimated GFR Random Glucose (60-115) mg/dL Calcium (8.4-10.2) mg/dL Magnesium (1.6-2.6) mg/dL Total Bilirubin (0.0-1.0) mg/dL AST (5-31) U/L ALT (0-31) U/L Alkaline Phosphatase (39-117) U/L Troponin I High Sens (<3.5-17.0) ng/L Total Protein (6.5-8.0) g/dL Albumin (3.5-5.0) g/dL TSH (0.32-4.0) uIU/mL Urine Color STRAW Urine Appearance HAZY Urine pH 6.5 (5.0-8.0) Ur Specific [place] <= 1.005 (1.005-1.025) Urine Protein NEG (NEG-TRACE) MG/DL Urine Glucose (UA) NEG (NEG) MG/DL Urine Ketones NEG (NEG) MG/DL Urine Blood NEG (NEG) Urine Nitrite NEG (NEG) Ur Leukocyte Esterase NEG (NEG) Urine Test NEGATIVE (NEGATIVE) Urine Opiates Screen Not Detected (Not Detect) Urine Fentanyl Screen Not Detected (Not Detect) Ur Barbiturates Screen Not Detected (Not Detect) Ur Phencyclidine Scrn Not Detected (Not Detect) Ur Amphetamines Screen Not Detected (Not Detect) U Benzodiazepines Scrn POSITIVE H (Not Detect) Urine Cocaine Screen Not Detected (Not Detect) U Marijuana (THC) Screen Not Detected (Not Detect) Ethyl Alcohol mg/dL COVID-19 (JABARI) (Negative) COVID-19 Clin Com Influenza Type A (LILIYA) (Negative) Influenza Type B (LILIYA) (Negative) Influenza A & B Note 06/19/21 06/19/21 06/19/21 Range/Units 13:30 13:30 13:30 WBC 8.6 (4.8-10.8) X10*3/uL RBC 4.75 (4.20-5.50) X10*6/uL Hgb 14.1 (12.0-16.0) g/dl Hct 41.6 (37.0-47.0) % MCV 87.6 (80.0-98.0) fL MCH 29.7 (27.0-33.0) pg MCHC 33.9 (31.0-35.0) g/dl RDW 12.9 (11.0-16.0) % Plt Count 630 H D (160-400) X10*3/uL MPV 8.9 L (9.4-12.3) fL Immature Gran % (Auto) 0.2 (0.0-0.4) % Neut % (Auto) 61.3 (45-73) % Lymph % (Auto) 30.4 (20-40) % [place] % (Auto) 4.1 (2-11) % Eos % (Auto) 0.9 (0-4) % Baso % (Auto) 3.1 H (0-2) % Lymph # (Auto) 2.6 (1.2-4.9) X10*3/uL [place] # (Auto) 0.4 (0.1-1.2) X10*3/uL Eos # (Auto) 0.1 (0.0-0.4) X10*3/uL Baso # (Auto) 0.3 H (0.0-0.2) X10*3/uL Abs Immat Gran (auto) 0.02 (0.00-0.03) X10*3/uL Absolute Neuts (auto) 5.3 (2.0-8.3) x10*3/uL Absolute Nucleated RBC 0.000 (0.0-0.012) X10*3/uL Nucleated RBC % (auto) 0.0 (0.0-0.2) /100WBC Smear Tech's Comments VERIFIED Sodium 143 (135-145) mmol/L Potassium 3.9 (3.3-5.1) mmol/L Chloride 103 (96-108) mmol/L Carbon Dioxide 23 (22-29) mmol/L Anion Gap 21 H (12-20) BUN 9 D (9-16) mg/dL Creatinine 0.54 (0.5-1.4) mg/dL Estim Creat Clear Calc 111.1 Estimated GFR > 60 Random Glucose 105 (60-115) mg/dL Calcium 9.0 D (8.4-10.2) mg/dL Magnesium 1.7 (1.6-2.6) mg/dL Total Bilirubin 0.3 (0.0-1.0) mg/dL AST 54 H (5-31) U/L ALT 35 H (0-31) U/L Alkaline Phosphatase 115 (39-117) U/L Troponin I High Sens (<3.5-17.0) ng/L Total Protein 7.2 (6.5-8.0) g/dL Albumin 3.9 (3.5-5.0) g/dL TSH 0.98 (0.32-4.0) uIU/mL Urine Color Urine Appearance Urine pH (5.0-8.0) Ur Specific [place] (1.005-1.025) Urine Protein (NEG-TRACE) MG/DL Urine Glucose (UA) (NEG) MG/DL Urine Ketones (NEG) MG/DL Urine Blood (NEG) Urine Nitrite (NEG) Ur Leukocyte Esterase (NEG) Urine Test (NEGATIVE) Urine Opiates Screen (Not Detect) Urine Fentanyl Screen (Not Detect) Ur Barbiturates Screen (Not Detect) Ur Phencyclidine Scrn (Not Detect) Ur Amphetamines Screen (Not Detect) U Benzodiazepines Scrn (Not Detect) Urine Cocaine Screen (Not Detect) U Marijuana (THC) Screen (Not Detect) Ethyl Alcohol 413 H* mg/dL COVID-19 (JABARI) (Negative) COVID-19 Clin Com Influenza Type A (LILIYA) (Negative) Influenza Type B (LILIYA) (Negative) Influenza A & B Note 06/19/21 06/19/21 06/19/21 Range/Units 13:30 13:30 13:30 WBC (4.8-10.8) X10*3/uL RBC (4.20-5.50) X10*6/uL Hgb (12.0-16.0) g/dl Hct (37.0-47.0) % MCV (80.0-98.0) fL MCH (27.0-33.0) pg MCHC (31.0-35.0) g/dl RDW (11.0-16.0) % Plt Count (160-400) X10*3/uL MPV (9.4-12.3) fL Immature Gran % (Auto) (0.0-0.4) % Neut % (Auto) (45-73) % Lymph % (Auto) (20-40) % [place] % (Auto) (2-11) % Eos % (Auto) (0-4) % Baso % (Auto) (0-2) % Lymph # (Auto) (1.2-4.9) X10*3/uL [place] # (Auto) (0.1-1.2) X10*3/uL Eos # (Auto) (0.0-0.4) X10*3/uL Baso # (Auto) (0.0-0.2) X10*3/uL Abs Immat Gran (auto) (0.00-0.03) X10*3/uL Absolute Neuts (auto) (2.0-8.3) x10*3/uL Absolute Nucleated RBC (0.0-0.012) X10*3/uL Nucleated RBC % (auto) (0.0-0.2) /100WBC Smear Tech's Comments Sodium (135-145) mmol/L Potassium (3.3-5.1) mmol/L Chloride (96-108) mmol/L Carbon Dioxide (22-29) mmol/L Anion Gap (12-20) BUN (9-16) mg/dL Creatinine (0.5-1.4) mg/dL Estim Creat Clear Calc Estimated GFR Random Glucose (60-115) mg/dL Calcium (8.4-10.2) mg/dL Magnesium (1.6-2.6) mg/dL Total Bilirubin (0.0-1.0) mg/dL AST (5-31) U/L ALT (0-31) U/L Alkaline Phosphatase (39-117) U/L Troponin I High Sens < 3.5 D (<3.5-17.0) ng/L Total Protein (6.5-8.0) g/dL Albumin (3.5-5.0) g/dL TSH (0.32-4.0) uIU/mL Urine Color Urine Appearance Urine pH (5.0-8.0) Ur Specific [place] (1.005-1.025) Urine Protein (NEG-TRACE) MG/DL Urine Glucose (UA) (NEG) MG/DL Urine Ketones (NEG) MG/DL Urine Blood (NEG) Urine Nitrite (NEG) Ur Leukocyte Esterase (NEG) Urine Test (NEGATIVE) Urine Opiates Screen (Not Detect) Urine Fentanyl Screen (Not Detect) Ur Barbiturates Screen (Not Detect) Ur Phencyclidine Scrn (Not Detect) Ur Amphetamines Screen (Not Detect) U Benzodiazepines Scrn (Not Detect) Urine Cocaine Screen (Not Detect) U Marijuana (THC) Screen (Not Detect) Ethyl Alcohol mg/dL COVID-19 (JABARI) Negative (Negative) COVID-19 Clin Com See Note Influenza Type A (LILIYA) Negative (Negative) Influenza Type B (LILIYA) Negative (Negative) Influenza A & B Note See Note <Millie Schwarz, [employer] - Last Filed: 06/19/21 21:21> Lab Results 06/19/21 06/19/21 06/19/21 Range/Units 13:22 13:22 13:23 WBC (4.8-10.8) X10*3/uL RBC (4.20-5.50) X10*6/uL Hgb (12.0-16.0) g/dl Hct (37.0-47.0) % MCV (80.0-98.0) fL MCH (27.0-33.0) pg MCHC (31.0-35.0) g/dl RDW (11.0-16.0) % Plt Count (160-400) X10*3/uL MPV (9.4-12.3) fL Immature Gran % (Auto) (0.0-0.4) % Neut % (Auto) (45-73) % Lymph % (Auto) (20-40) % [place] % (Auto) (2-11) % Eos % (Auto) (0-4) % Baso % (Auto) (0-2) % Lymph # (Auto) (1.2-4.9) X10*3/uL [place] # (Auto) (0.1-1.2) X10*3/uL Eos # (Auto) (0.0-0.4) X10*3/uL Baso # (Auto) (0.0-0.2) X10*3/uL Abs Immat Gran (auto) (0.00-0.03) X10*3/uL Absolute Neuts (auto) (2.0-8.3) x10*3/uL Absolute Nucleated RBC (0.0-0.012) X10*3/uL Nucleated RBC % (auto) (0.0-0.2) /100WBC Smear Tech's Comments Sodium (135-145) mmol/L Potassium (3.3-5.1) mmol/L Chloride (96-108) mmol/L Carbon Dioxide (22-29) mmol/L Anion Gap (12-20) BUN (9-16) mg/dL Creatinine (0.5-1.4) mg/dL Estim Creat Clear Calc Estimated GFR Random Glucose (60-115) mg/dL Calcium (8.4-10.2) mg/dL Magnesium (1.6-2.6) mg/dL Total Bilirubin (0.0-1.0) mg/dL AST (5-31) U/L ALT (0-31) U/L Alkaline Phosphatase (39-117) U/L Troponin I High Sens (<3.5-17.0) ng/L Total Protein (6.5-8.0) g/dL Albumin (3.5-5.0) g/dL TSH (0.32-4.0) uIU/mL Urine Color STRAW Urine Appearance HAZY Urine pH 6.5 (5.0-8.0) Ur Specific [place] <= 1.005 (1.005-1.025) Urine Protein NEG (NEG-TRACE) MG/DL Urine Glucose (UA) NEG (NEG) MG/DL Urine Ketones NEG (NEG) MG/DL Urine Blood NEG (NEG) Urine Nitrite NEG (NEG) Ur Leukocyte Esterase NEG (NEG) Urine Test NEGATIVE (NEGATIVE) Urine Opiates Screen Not Detected (Not Detect) Urine Fentanyl Screen Not Detected (Not Detect) Ur Barbiturates Screen Not Detected (Not Detect) Ur Phencyclidine Scrn Not Detected (Not Detect) Ur Amphetamines Screen Not Detected (Not Detect) U Benzodiazepines Scrn POSITIVE H (Not Detect) Urine Cocaine Screen Not Detected (Not Detect) U Marijuana (THC) Screen Not Detected (Not Detect) Ethyl Alcohol mg/dL COVID-19 (JABARI) (Negative) COVID-19 Clin Com Influenza Type A (LILIYA) (Negative) Influenza Type B (LILIYA) (Negative) Influenza A & B Note 06/19/21 06/19/21 06/19/21 Range/Units 13:30 13:30 13:30 WBC 8.6 (4.8-10.8) X10*3/uL RBC 4.75 (4.20-5.50) X10*6/uL Hgb 14.1 (12.0-16.0) g/dl Hct 41.6 (37.0-47.0) % MCV 87.6 (80.0-98.0) fL MCH 29.7 (27.0-33.0) pg MCHC 33.9 (31.0-35.0) g/dl RDW 12.9 (11.0-16.0) % Plt Count 630 H D (160-400) X10*3/uL MPV 8.9 L (9.4-12.3) fL Immature Gran % (Auto) 0.2 (0.0-0.4) % Neut % (Auto) 61.3 (45-73) % Lymph % (Auto) 30.4 (20-40) % [place] % (Auto) 4.1 (2-11) % Eos % (Auto) 0.9 (0-4) % Baso % (Auto) 3.1 H (0-2) % Lymph # (Auto) 2.6 (1.2-4.9) X10*3/uL [place] # (Auto) 0.4 (0.1-1.2) X10*3/uL Eos # (Auto) 0.1 (0.0-0.4) X10*3/uL Baso # (Auto) 0.3 H (0.0-0.2) X10*3/uL Abs Immat Gran (auto) 0.02 (0.00-0.03) X10*3/uL Absolute Neuts (auto) 5.3 (2.0-8.3) x10*3/uL Absolute Nucleated RBC 0.000 (0.0-0.012) X10*3/uL Nucleated RBC % (auto) 0.0 (0.0-0.2) /100WBC Smear Tech's Comments VERIFIED Sodium 143 (135-145) mmol/L Potassium 3.9 (3.3-5.1) mmol/L Chloride 103 (96-108) mmol/L Carbon Dioxide 23 (22-29) mmol/L Anion Gap 21 H (12-20) BUN 9 D (9-16) mg/dL Creatinine 0.54 (0.5-1.4) mg/dL Estim Creat Clear Calc 111.1 Estimated GFR > 60 Random Glucose 105 (60-115) mg/dL Calcium 9.0 D (8.4-10.2) mg/dL Magnesium 1.7 (1.6-2.6) mg/dL Total Bilirubin 0.3 (0.0-1.0) mg/dL AST 54 H (5-31) U/L ALT 35 H (0-31) U/L Alkaline Phosphatase 115 (39-117) U/L Troponin I High Sens (<3.5-17.0) ng/L Total Protein 7.2 (6.5-8.0) g/dL Albumin 3.9 (3.5-5.0) g/dL TSH 0.98 (0.32-4.0) uIU/mL Urine Color Urine Appearance Urine pH (5.0-8.0) Ur Specific [place] (1.005-1.025) Urine Protein (NEG-TRACE) MG/DL Urine Glucose (UA) (NEG) MG/DL Urine Ketones (NEG) MG/DL Urine Blood (NEG) Urine Nitrite (NEG) Ur Leukocyte Esterase (NEG) Urine Test (NEGATIVE) Urine Opiates Screen (Not Detect) Urine Fentanyl Screen (Not Detect) Ur Barbiturates Screen (Not Detect) Ur Phencyclidine Scrn (Not Detect) Ur Amphetamines Screen (Not Detect) U Benzodiazepines Scrn (Not Detect) Urine Cocaine Screen (Not Detect) U Marijuana (THC) Screen (Not Detect) Ethyl Alcohol 413 H* mg/dL COVID-19 (JABARI) (Negative) COVID-19 Clin Com Influenza Type A (LILIYA) (Negative) Influenza Type B (LILIYA) (Negative) Influenza A & B Note 06/19/21 06/19/21 06/19/21 Range/Units 13:30 13:30 13:30 WBC (4.8-10.8) X10*3/uL RBC (4.20-5.50) X10*6/uL Hgb (12.0-16.0) g/dl Hct (37.0-47.0) % MCV (80.0-98.0) fL MCH (27.0-33.0) pg MCHC (31.0-35.0) g/dl RDW (11.0-16.0) % Plt Count (160-400) X10*3/uL MPV (9.4-12.3) fL Immature Gran % (Auto) (0.0-0.4) % Neut % (Auto) (45-73) % Lymph % (Auto) (20-40) % [place] % (Auto) (2-11) % Eos % (Auto) (0-4) % Baso % (Auto) (0-2) % Lymph # (Auto) (1.2-4.9) X10*3/uL [place] # (Auto) (0.1-1.2) X10*3/uL Eos # (Auto) (0.0-0.4) X10*3/uL Baso # (Auto) (0.0-0.2) X10*3/uL Abs Immat Gran (auto) (0.00-0.03) X10*3/uL Absolute Neuts (auto) (2.0-8.3) x10*3/uL Absolute Nucleated RBC (0.0-0.012) X10*3/uL Nucleated RBC % (auto) (0.0-0.2) /100WBC Smear Tech's Comments Sodium (135-145) mmol/L Potassium (3.3-5.1) mmol/L Chloride (96-108) mmol/L Carbon Dioxide (22-29) mmol/L Anion Gap (12-20) BUN (9-16) mg/dL Creatinine (0.5-1.4) mg/dL Estim Creat Clear Calc Estimated GFR Random Glucose (60-115) mg/dL Calcium (8.4-10.2) mg/dL Magnesium (1.6-2.6) mg/dL Total Bilirubin (0.0-1.0) mg/dL AST (5-31) U/L ALT (0-31) U/L Alkaline Phosphatase (39-117) U/L Troponin I High Sens < 3.5 D (<3.5-17.0) ng/L Total Protein (6.5-8.0) g/dL Albumin (3.5-5.0) g/dL TSH (0.32-4.0) uIU/mL Urine Color Urine Appearance Urine pH (5.0-8.0) Ur Specific [place] (1.005-1.025) Urine Protein (NEG-TRACE) MG/DL Urine Glucose (UA) (NEG) MG/DL Urine Ketones (NEG) MG/DL Urine Blood (NEG) Urine Nitrite (NEG) Ur Leukocyte Esterase (NEG) Urine Test (NEGATIVE) Urine Opiates Screen (Not Detect) Urine Fentanyl Screen (Not Detect) Ur Barbiturates Screen (Not Detect) Ur Phencyclidine Scrn (Not Detect) Ur Amphetamines Screen (Not Detect) U Benzodiazepines Scrn (Not Detect) Urine Cocaine Screen (Not Detect) U Marijuana (THC) Screen (Not Detect) Ethyl Alcohol mg/dL COVID-19 (JABARI) Negative (Negative) COVID-19 Clin Com See Note Influenza Type A (LILIYA) Negative (Negative) Influenza Type B (LILIYA) Negative (Negative) Influenza A & B Note See Note <LIS [place] - Last Filed: 06/19/21 22:56> ECG Data ECG #1: Attestation: I personally reviewed and interpreted this ECG as follows: <Millie Schwarz CNP - Last Filed: 06/19/21 21:21> ECG interpretation date: 06/19/21 <Millie Schwarz CNP - Last Filed: 06/19/21 21:21> ECG interpretation time: 13:10 <Millie Schwarz CNP - Last Filed: 06/19/21 21:21> Prior ECG tracings: available for review <Millie Schwarz CNP - Last Filed: 06/19/21 21:21> Interpretation: Rate: 102 Rhythm:? sinus tachycardia [place]:? right axis Normal P waves.? Normal DANIELA.?? Normal QRS complex.?? ST T wave :?? no ST elevation, no ST depression, no T-wave inversion qTC: 463 prior studies:? 06/05/2021 The study has been interpreted contemporaneously by me. <Millie Schwarz CNP - Last Filed: 06/19/21 21:21> Discharge Plan Discharge Clinical Impression: Alcohol withdrawal <Millie Schwarz CNP - Last Filed: 06/19/21 21:21> Patient Disposition: Admitted As Inpatient <Millie Schwarz CNP - Last Filed: 06/19/21 21:21> Prescriptions: No Action lorazepam 0.5 mg tablet 0.5 mg PO TID PRN (Reason: alcohol withdrawal) 5 Days Qty: 15 0RF folic acid 1 mg tablet 1 mg PO DAILY 90 Days Qty: 90 1RF thiamine HCl (vitamin B1) [Vitamin B-1] 100 mg tablet 100 mg PO DAILY Qty: 90 0RF naltrexone 50 mg tablet 50 mg PO DAILY 0RF trazodone 50 mg tablet 50 mg PO BEDTIME 30 Days Qty: 30 1RF <iMllie Schwarz, CHERIE - Last Filed: 06/19/21 21:21>
--- NOTE | 2021-06-19 12:46 | PC.NURSE ---
Pt changed into green gown and belongings secured in pod.
[2021-06-19 13:31] VITALS: BP 103/92; PULSE 113; RESP 17; TEMP 36.8; O2SAT 96
[2021-06-19 13:38] LABS: Basophils Absolute Auto 0.3 X10*3/uL (0.0-0.2); Basophils Percent Auto 3.1 % (0-2); Eosinophils Absolute Auto 0.1 X10*3/uL (0.0-0.4); Eosinophils Percent Auto 0.9 % (0-4); Hematocrit 41.6 % (37.0-47.0); Hemoglobin 14.1 g/dl (12.0-16.0); Imm Gran Abs Auto 0.02 X10*3/uL (0.00-0.03); Imm Gran Pct Auto 0.2 % (0.0-0.4); Lymphocytes Absolute Auto 2.6 X10*3/uL (1.2-4.9); Lymphocytes Percent Auto 30.4 % (20-40); MANUAL DIFF FLAG SCAN; Mean Corpuscular HGB Conc 33.9 g/dl (31.0-35.0); Mean Corpuscular Hemoglobin 29.7 pg (27.0-33.0); Mean Corpuscular Volume 87.6 fL (80.0-98.0); Mean Platelet Volume 8.9 fL (9.4-12.3); Monocytes Absolute Auto 0.4 X10*3/uL (0.1-1.2); Monocytes Percent Auto 4.1 % (2-11); Neutrophils Absolute Auto 5.3 x10*3/uL (2.0-8.3); Neutrophils Percent Auto 61.3 % (45-73); Platelet Count 630 X10*3/uL (160-400); Red Blood Count 4.75 X10*6/uL (4.20-5.50); Red Cell Distribution Width 12.9 % (11.0-16.0); SCAN SMEAR FLAG 1; White Blood Count 8.6 X10*3/uL (4.8-10.8)
[2021-06-19 13:41] LABS: Appearance Urine HAZY; Color Urine STRAW; Glucose Urine UA NEG (NEG); Leukocyte Esterase Urine NEG (NEG); Nitrite Urine NEG (NEG); PH 6.5 (5.0-8.0); Specific Gravity - Urine <= 1.005 (1.005-1.025); Urine Blood NEG (NEG); Urine Ketones NEG (NEG); Urine Protein NEG (NEG-TRACE)
[2021-06-19 13:45] LABS: UPreg QC Valid YES; Urine Pregnancy NEGATIVE (NEGATIVE)
[2021-06-19] MEDS: Ibuprofen 600 MG TABLET PO (13:52)
--- NOTE | 2021-06-19 13:53 | PC.NURSE ---
MARTA completed and scored an 8. . pt is in good spirits except for a headache. She does not really appear to be in alcohol withdrawal at this time. VSS, HR is in 110-120's sinus rhytm. Resting comfortbly, ate some food and tolerating PO well. Motrin given
[2021-06-19 13:55] LABS: SLIDE REVIEW VERIFIED
[2021-06-19 13:56] LABS: Ethanol 413 mg/dL
[2021-06-19 13:58] LABS: Amphetamine Screen Urine Not Detected (Not Detect); Barbiturates, Urine Not Detected (Not Detect); Benzodiazepines Screen Urine POSITIVE (Not Detect); Cannabinoid Screen Urine Not Detected (Not Detect); Cocaine Screen Urine Not Detected (Not Detect); Fentanyl, urine Not Detected (Not Detect); Opiate Screen Urine Not Detected (Not Detect); Phencyclidine Screen Urine Not Detected (Not Detect)
[2021-06-19 14:00] LABS: Alanine Aminotransferase 35 U/L (0-31); Albumin Level 3.9 g/dL (3.5-5.0); Alkaline Phosphatase 115 U/L (39-117); Anion Gap 21 (12-20); Aspartate Amino Transferase 54 U/L (5-31); Bilirubin Total 0.3 mg/dL (0.0-1.0); Blood Urea Nitrogen 9 mg/dL (9-16); Carbon Dioxide 23 mmol/L (22-29); Chloride 103 mmol/L (96-108); Creatinine Clr Calc Pharmacy 111.1; Estimated Glomerular Filt Rate > 60; Glucose Random 105 mg/dL (60-115); Magnesium 1.7 mg/dL (1.6-2.6); Potassium 3.9 mmol/L (3.3-5.1); Sodium 143 mmol/L (135-145); Total Protein 7.2 g/dL (6.5-8.0)
[2021-06-19 14:02] LABS: Troponin-I High Sensitivity < 3.5 ng/L (<3.5-17.0)
[2021-06-19] MEDS: LORazepam 2 MG/ML VIAL IVPUSH ×2 (14:22→18:32)
[2021-06-19] MEDS: 0.9 % Sodium Chloride 1,000 ML 999 ML IVCONT (14:22)
[2021-06-19 14:28] VITALS: BP 123/81; PULSE 126; RESP 23; TEMP 36.7; O2SAT 97
[2021-06-19 15:54] LABS: IDNOW Serial# 16C4AD1C; Influenza A Negative (Negative); Influenza B2 Negative (Negative)
[2021-06-19 15:55] LABS: COVID-19 Test Negative (Negative)
[2021-06-19] MEDS: 0.9 % Sodium Chloride 1,000 ML 999 ML IV ×2 (16:41→20:03)
[2021-06-19 17:12] VITALS: BP 114/67; PULSE 119; RESP 19; TEMP 37; O2SAT 95
--- NOTE | 2021-06-19 19:10 | PC.NURSE ---
Took report from Tameka to assume care of Pt.
[2021-06-19 19:43] VITALS: BP 151/85; PULSE 129; RESP 20; O2SAT 92
--- NOTE | 2021-06-19 20:27 | ECG_ITS ---
Test Reason : REPEAT Blood Pressure : / mmHG Vent. Rate : 130 BPM Atrial Rate : 130 BPM P-R Int : 138 ms QRS Dur : 078 ms QT Int : 284 ms P-R-T Axes : 026 076 023 degrees QTc Int : 417 ms Sinus tachycardia Otherwise normal ECG When compared with ECG of 19-JUN-2021 12:58, No significant change was found Referred By: Millie Schwarz Electronically Signed By:ALEM REYES
[2021-06-19 22:04] LABS: TSH reflex Free T4 0.98 uIU/mL (0.32-4.0)
[2021-06-19 22:08] VITALS: BP 130/65; PULSE 124; RESP 14; O2SAT 93
[2021-06-19] MEDS: LORazepam 1 MG TABLET PO (23:01)
[2021-06-19] MEDS: PHENobarbitaL 200 MG, PHENobarbitaL 15 MG 215 MG PO (23:22)
[2021-06-20] MEDS: Dextrose 5 % and 0.45 % NaCl 1,000 ML 100 ML IVCONT ×2 (00:02→10:47)
--- NOTE | 2021-06-20 00:22 | P.HPHOSP_ITS ---
History of Present Illness Date of Service: 07/20/21 Chief Complaint: alcohol withdrawal 41-year-old female with a past medical history of anxiety, alcohol abuse, postdural tachycardia syndrome; presented to the hospital today with a chief complaint of tremulousness -concerning for alcohol withdrawal. Patient reports that she drinks about 50 shortness of alcohol every day; last drink was in the afternoon prior to coming to the hospital. Mentioned that she was shaky and tremulous concerning for withdrawal; mentions that she also wanted to go to detox. Patient also reports that she was recently presented to the hospital in June 05 and was said to the alcohol detox; stated for a week and subsequently went home and after she went home she started to drink again. Denies any chest pain or palpitations. Denies any nausea vomiting or diarrhea. Denies any falls or trauma. Patient denies any prior history of alcohol withdrawal seizures or delirium tremens. Review of all other systems is negative except mentioned above ER course: Per ER team patient noted to be tachycardic, tremulous; patient is started on p.o. phenobarb protocol. Alcohol level elevated to 400; labs essentially daljit ign; ER team also mentioned that patient on presentation mentioned suicidal ideation to the triage nurse; - mentioned she was depressed as she recently lost a friend. Patient denied any suicidal ideation to the ER staff, and the ER team cleared her for any suicidal ideations. Did not section told her. FOR[facility]LY [facility] Medical History Alcohol abuse Alcohol abuse Anxiety Family History Father Medical history unknown Mother Medical history unknown Paternal Grandfather Cancer Sister Epilepsy Daughter In good health Son In good health Surgical History No pertinent past surgical history Social History Household Members: None Housing: Apartment Do you presently have visiting nurse or other home services: No Alcohol intake: current Alcohol intake frequency: 3 or more drinks per day Alcohol type: other Patient Tobacco Use Status: Former Tobacco user e-Cigarette/Vaping Use: Never Used Advance Directives: Yes Advance Directives on File: Yes Advance Directives Date on File: 01/25/21 Patient : No service: No Current occupational status: unemployed Meds Allergies Allergy/AdvReac Type Severity Reaction Status Date / Time Sulfa (Sulfonamide Allergy Mild RASH Verified 04/20/21 15:41 Antibiotics) [SULFA (SULFONAMIDE ANTIBIOTICS)] Active Medications: Current Medications Enoxaparin Sodium (Enoxaparin Sodium 40 Mg/0.4 Ml Syringe) 40 mg SUBCUT Q24H [facility] Famotidine (Famotidine/Pf 20 Mg/2 Ml Vial) 20 mg IVPUSH BID [facility] Folic Acid (Folic Acid 1 Mg Tablet) 1 mg PO DAILY [facility] Stop: 06/23/21 08:59 Hydromorphone HCl (Hydromorphone Hcl 1 Mg/Ml Syringe) 0.5 mg IVPUSH Q4H PRN; Protocol PRN Reason: Pain, Severe (Pain Scale 7-10) Dextrose/Sodium Chloride (D51/2ns) 1,000 mls @ 100 mls/hr IVCONT .Q10H [facility] Last Admin: 06/20/21 00:02 Dose: 100 mls/hr Documented by: Melatonin (Melatonin 3 Mg Tablet) 6 mg PO BEDTIME PRN PRN Reason: Insomnia Multivitamins/Vitamin C (Multivitamin Tablet) 1 tab PO DAILY [facility] Stop: 06/23/21 08:59 Pharmacy Consult (Consult Rx Etoh Phenob Po Dose) 1 each MISCELLANE ONCE PRN; Protocol PRN Reason: Consult order Phenobarbital 100 mg/ (Phenobarbital 60 mg) 160 mg PO Q3H [facility] Stop: 06/20/21 05:01 Phenobarbital (Phenobarbital 15 Mg Tablet) 45 mg PO BID [facility] Stop: 06/22/21 09:01 Phenobarbital (Phenobarbital 15 Mg Tablet) 15 mg PO BID [facility] Stop: 06/24/21 09:01 Phenobarbital (Phenobarbital 15 Mg Tablet) 15 mg PO DAILY [facility] Stop: 06/26/21 09:01 Senna (Sennosides 8.6 Mg Tablet) 17.2 mg PO BEDTIME PRN PRN Reason: Constipation Sodium Chloride (0.9 % Sodium Chloride Flush 3 Ml Syringe) 3 ml IVFLUSH QSHIFT [facility] Thiamine HCl (Thiamine Hcl 100 Mg Tablet) 100 mg PO DAILY [facility] Stop: 06/23/21 08:59 Home Medications Medication Instructions Recorded Confirmed Last Taken Type naltrexone 50 mg tablet 50 mg PO DAILY 04/20/21 04/20/21 Unknown History Physical Exam Vital Signs and Narrative: Vital Signs: Last Vital Signs Temp 98.6 F 06/19/21 17:12 Pulse 124 H 06/19/21 22:08 Resp 14 06/19/21 22:08 BP 130/65 06/19/21 22:08 Pulse Ox 93 06/19/21 22:08 BMI result Body Mass Index 22.6 Gen: Appears be in no acute distress; mildly tachycardic on telemetry; blood pressure normal HEENT: NCAT, Dry mucosa. Pulmonary: Vesicular breath sounds, fair air entry CVS: Normal S1-S2 Abdomen: BS+, Soft, Nontender Extremities: Warm well perfused Neuro: Alert and awake. grossly nonfocal Results Labs CBC and Chem 7: 06/19/21 13:30 06/19/21 13:30 Labs: Laboratory Results - last 24 hr 06/19/21 06/19/21 06/19/21 13:22 13:22 13:23 MCV MCH MCHC RDW Plt Count MPV Immature Gran % (Auto) Neut % (Auto) Lymph % (Auto) [place] % (Auto) Eos % (Auto) Baso % (Auto) Lymph # (Auto) [place] # (Auto) Eos # (Auto) Baso # (Auto) Abs Immat Gran (auto) Absolute Neuts (auto) Absolute Nucleated RBC Nucleated RBC % (auto) Smear Tech's Comments Anion Gap Estim Creat Clear Calc Estimated GFR Random Glucose Calcium Magnesium Total Bilirubin AST ALT Alkaline Phosphatase Troponin I High Sens Total Protein Albumin TSH Urine Color STRAW Urine Appearance HAZY Urine pH 6.5 Ur Specific [place] <= 1.005 Urine Protein NEG Urine Glucose (UA) NEG Urine Ketones NEG Urine Blood NEG Urine Nitrite NEG Ur Leukocyte Esterase NEG Urine Test NEGATIVE Urine Opiates Screen Not Detected Urine Fentanyl Screen Not Detected Ur Barbiturates Screen Not Detected Ur Phencyclidine Scrn Not Detected Ur Amphetamines Screen Not Detected U Benzodiazepines Scrn POSITIVE H Urine Cocaine Screen Not Detected U Marijuana (THC) Screen Not Detected Ethyl Alcohol COVID-19 (JABARI) COVID-19 Clin Com Influenza Type A (LILIYA) Influenza Type B (LILIYA) Influenza A & B Note 06/19/21 06/19/21 06/19/21 13:30 13:30 13:30 MCV 87.6 MCH 29.7 MCHC 33.9 RDW 12.9 Plt Count 630 H D MPV 8.9 L Immature Gran % (Auto) 0.2 Neut % (Auto) 61.3 Lymph % (Auto) 30.4 [place] % (Auto) 4.1 Eos % (Auto) 0.9 Baso % (Auto) 3.1 H Lymph # (Auto) 2.6 [place] # (Auto) 0.4 Eos # (Auto) 0.1 Baso # (Auto) 0.3 H Abs Immat Gran (auto) 0.02 Absolute Neuts (auto) 5.3 Absolute Nucleated RBC 0.000 Nucleated RBC % (auto) 0.0 Smear Tech's Comments VERIFIED Anion Gap 21 H Estim Creat Clear Calc 111.1 Estimated GFR > 60 Random Glucose 105 Calcium 9.0 D Magnesium 1.7 Total Bilirubin 0.3 AST 54 H ALT 35 H Alkaline Phosphatase 115 Troponin I High Sens Total Protein 7.2 Albumin 3.9 TSH 0.98 Urine Color Urine Appearance Urine pH Ur Specific [place] Urine Protein Urine Glucose (UA) Urine Ketones Urine Blood Urine Nitrite Ur Leukocyte Esterase Urine Test Urine Opiates Screen Urine Fentanyl Screen Ur Barbiturates Screen Ur Phencyclidine Scrn Ur Amphetamines Screen U Benzodiazepines Scrn Urine Cocaine Screen U Marijuana (THC) Screen Ethyl Alcohol 413 H* COVID-19 (JABARI) COVID-19 Clin Com Influenza Type A (LILIYA) Influenza Type B (LILIYA) Influenza A & B Note 06/19/21 06/19/21 06/19/21 13:30 13:30 13:30 MCV MCH MCHC RDW Plt Count MPV Immature Gran % (Auto) Neut % (Auto) Lymph % (Auto) [place] % (Auto) Eos % (Auto) Baso % (Auto) Lymph # (Auto) [place] # (Auto) Eos # (Auto) Baso # (Auto) Abs Immat Gran (auto) Absolute Neuts (auto) Absolute Nucleated RBC Nucleated RBC % (auto) Smear Tech's Comments Anion Gap Estim Creat Clear Calc Estimated GFR Random Glucose Calcium Magnesium Total Bilirubin AST ALT Alkaline Phosphatase Troponin I High Sens < 3.5 D Total Protein Albumin TSH Urine Color Urine Appearance Urine pH Ur Specific [place] Urine Protein Urine Glucose (UA) Urine Ketones Urine Blood Urine Nitrite Ur Leukocyte Esterase Urine Test Urine Opiates Screen Urine Fentanyl Screen Ur Barbiturates Screen Ur Phencyclidine Scrn Ur Amphetamines Screen U Benzodiazepines Scrn Urine Cocaine Screen U Marijuana (THC) Screen Ethyl Alcohol COVID-19 (JABARI) Negative COVID-19 Clin Com See Note Influenza Type A (LILIYA) Negative Influenza Type B (LILIYA) Negative Influenza A & B Note See Note Imaging Radiologist's Impressions: Impressions Chest X-Ray 06/19/21 19:48 IMPRESSION: No acute cardiopulmonary findings. Assessment and Plan (1) Alcohol withdrawal: Status: Acute Plan 41-year-old female with a past medical history of anxiety, alcohol abuse, postdural tachycardia syndrome; presented to the hospital today with a chief complaint of tremulousness -concerning for alcohol withdrawal. admitted for following Alcohol withdrawal: Monitor on CIWA protocol. Patient started on phenobarb. Thiamine folate and multivitamins washtub worker helper follow-up Suicidal ideation: Patient currently denies any suicidal ideations. Mentioned she was initially depressed that she lost a friend. care team was consulted. Spoke to our for suicide precautions. Postural tachycardia syndrome: Patient reports that she was diagnosed with postural tachycardia syndrome at [facility]. Also reports she had normal echocardiogram. Currently patient is tachy to 120s. Monitor on telemetry. DVT prophylaxis: Lovenox Code status: Full code Quality Stroke Does the patient have a stroke diagnosis?: No VTE Prior VTE?: No VTE Risk Level:: Medical - moderate - high VTE Device Contraindication: Treatment Not Indicated VTE Drug Contraindication: N/A - Med Ordered
--- NOTE | 2021-06-20 00:27 | PC.NURSE ---
Dr Rodriguez called and pt is no longer s1 or h1, pt had a friend and pt is depressed but denies crisis. pt referred to care team for etoh. julio cancelled at this time.
[2021-06-20] MEDS: PHENobarbitaL 100 MG, PHENobarbitaL 60 MG 160 MG PO ×2 (01:48→05:15)
[2021-06-20 02:34] VITALS: BP 124/73; PULSE 118; RESP 8; TEMP 36.8; O2SAT 98
[2021-06-20 03:42] VITALS: BP 122/76; PULSE 110; RESP 14; O2SAT 96
[2021-06-20 06:15] VITALS: BP 111/70; PULSE 96; RESP 16; TEMP 37.7; O2SAT 97
[2021-06-20 06:39] LABS: MANUAL DIFF FLAG NO
[2021-06-20 06:48] LABS: Basophils Absolute Auto 0.1 X10*3/uL (0.0-0.2); Basophils Percent Auto 1.4 % (0-2); Eosinophils Absolute Auto 0.2 X10*3/uL (0.0-0.4); Eosinophils Percent Auto 3.3 % (0-4); Hematocrit 32.6 % (37.0-47.0); Imm Gran Abs Auto 0.02 X10*3/uL (0.00-0.03); Imm Gran Pct Auto 0.3 % (0.0-0.4); Lymphocytes Absolute Auto 1.5 X10*3/uL (1.2-4.9); Mean Corpuscular HGB Conc 33.7 g/dl (31.0-35.0); Mean Corpuscular Hemoglobin 30.2 pg (27.0-33.0); Mean Corpuscular Volume 89.6 fL (80.0-98.0); Mean Platelet Volume 9.4 fL (9.4-12.3); Monocytes Absolute Auto 0.4 X10*3/uL (0.1-1.2); Monocytes Percent Auto 5.4 % (2-11); Neutrophils Percent Auto 68.6 % (45-73); Platelet Count 436 X10*3/uL (160-400); Red Blood Count 3.64 X10*6/uL (4.20-5.50); Red Cell Distribution Width 12.9 % (11.0-16.0); White Blood Count 7.3 X10*3/uL (4.8-10.8)
[2021-06-20 07:17] LABS: Anion Gap 13 (12-20); Blood Urea Nitrogen 4 mg/dL (9-16); Calcium 7.8 mg/dL (8.4-10.2); Carbon Dioxide 23 mmol/L (22-29); Chloride 103 mmol/L (96-108); Estimated Glomerular Filt Rate > 60; Glucose Random 95 mg/dL (60-115); Potassium 3.3 mmol/L (3.3-5.1); Sodium 136 mmol/L (135-145)
--- NOTE | 2021-06-20 08:29 | PHA.MEDREC ---
MED REC COMPLETE, NO ISSUES Pharmacy Consult ? Medication Reconciliation Pharmacy has completed the medication reconciliation.
--- NOTE | 2021-06-20 09:23 | MHC.CARE ---
Pt is a 41 y/o single, Romansh speaking, female who is previously unknown to the CARE Team.? Yesterday, EMS was called after pt made SI statements to an individual during a phone conversation. At the time, pt was under the influence of alcoholic beverage.? Pt is alert and oriented x4 and is screened for risk in her room in the Main ED.? She reports that she is presently beginning to experience withdrawal symptoms.? ED providers are aware of that and a plan is in place for pt to be admitted to one of the nursing floors.? Pt is presently denying SI, HI, , and self-harm urges.? She denies a hx of the above.? She denies any hx of mental illness, dx, or treatment for mental illness. Upon arrival, pt endorsed SI to the triage nurse.? She denied SI throughout her staff after that initial endorsing of SI.? Pt reports being in an [facility] program in [place] for alcohol use.? While at the program, she met a man who she has frequent contact with.? Yesterday her friend had a birthday celebration that pt did not attend.? She found out that her daughter was present at the celebration.? She had no seen her daughter since July and was upset that she missed the opportunity to see her daughter.? She was on the phone speaking with this male she met at the IOP program and believes she may have made a statement that was misconstrued.? She cannot recall what the statement was as she was intoxicated at the time she was speaking with him. Pt does not appear to be a risk. CARE Team is available should anything further be needed.
--- NOTE | 2021-06-20 10:28 | P.PNIM_ITS ---
Subjective Subjective Date of Service: 06/20/21 Review of Systems Follow up alcohol withdrawal no active symptoms Physical Exam Vital Signs: Vital Signs: Last Vital Signs Temp 99.9 F 06/20/21 06:15 Pulse 96 06/20/21 06:15 Resp 16 06/20/21 06:15 BP 111/70 06/20/21 06:15 Pulse Ox 97 06/20/21 06:15 BMI result Body Mass Index 22.6 Appearing in no acute distress lung sounds are clear to auscultation heart regular rate rhythm, clear S1, S2 positive bowel sounds, abdomen is soft, nontender neuro patient is alert x3, no focal deficits Objective Data Active Medications Enoxaparin Sodium (Enoxaparin Sodium 40 Mg/0.4 Ml Syringe) 40 mg SUBCUT Q24H [facility] Famotidine (Famotidine/Pf 20 Mg/2 Ml Vial) 20 mg IVPUSH BID [facility] Folic Acid (Folic Acid 1 Mg Tablet) 1 mg PO DAILY [facility] Stop: 06/23/21 08:59 Hydromorphone HCl (Hydromorphone Hcl 1 Mg/Ml Syringe) 0.5 mg IVPUSH Q4H PRN; Protocol PRN Reason: Pain, Severe (Pain Scale 7-10) Dextrose/Sodium Chloride (D51/2ns) 1,000 mls @ 100 mls/hr IVCONT .Q10H [facility] Last Admin: 06/20/21 00:02 Dose: 100 mls/hr Documented by: TRINI Melatonin (Melatonin 3 Mg Tablet) 6 mg PO BEDTIME PRN PRN Reason: Insomnia Multivitamins/Vitamin C (Multivitamin Tablet) 1 tab PO DAILY [facility] Stop: 06/23/21 08:59 Pharmacy Consult (Consult Rx Etoh Phenob Po Dose) 1 each MISCELLANE ONCE PRN; Protocol PRN Reason: Consult order Phenobarbital (Phenobarbital 15 Mg Tablet) 45 mg PO BID [facility] Stop: 06/22/21 09:01 Phenobarbital (Phenobarbital 15 Mg Tablet) 15 mg PO BID [facility] Stop: 06/24/21 09:01 Phenobarbital (Phenobarbital 15 Mg Tablet) 15 mg PO DAILY [facility] Stop: 06/26/21 09:01 Senna (Sennosides 8.6 Mg Tablet) 17.2 mg PO BEDTIME PRN PRN Reason: Constipation Sodium Chloride (0.9 % Sodium Chloride Flush 3 Ml Syringe) 3 ml IVFLUSH QSHIFT [facility] Last Admin: 06/20/21 06:58 Dose: Not Given Documented by: DAVION Non-Admin Reason: Med Not Available Thiamine HCl (Thiamine Hcl 100 Mg Tablet) 100 mg PO DAILY [facility] Stop: 06/23/21 08:59 Labs CBC & Chem 7: 06/20/21 06:19 06/20/21 06:19 Labs: Laboratory Results - last 24 hr 06/19/21 06/19/21 06/19/21 13:22 13:22 13:23 MCV MCH MCHC RDW Plt Count MPV Immature Gran % (Auto) Neut % (Auto) Lymph % (Auto) [place] % (Auto) Eos % (Auto) Baso % (Auto) Lymph # (Auto) [place] # (Auto) Eos # (Auto) Baso # (Auto) Abs Immat Gran (auto) Absolute Neuts (auto) Absolute Nucleated RBC Nucleated RBC % (auto) Smear Tech's Comments Anion Gap Estim Creat Clear Calc Estimated GFR Random Glucose Calcium Magnesium Total Bilirubin AST ALT Alkaline Phosphatase Troponin I High Sens Total Protein Albumin TSH Urine Color STRAW Urine Appearance HAZY Urine pH 6.5 Ur Specific [place] <= 1.005 Urine Protein NEG Urine Glucose (UA) NEG Urine Ketones NEG Urine Blood NEG Urine Nitrite NEG Ur Leukocyte Esterase NEG Urine Test NEGATIVE Urine Opiates Screen Not Detected Urine Fentanyl Screen Not Detected Ur Barbiturates Screen Not Detected Ur Phencyclidine Scrn Not Detected Ur Amphetamines Screen Not Detected U Benzodiazepines Scrn POSITIVE H Urine Cocaine Screen Not Detected U Marijuana (THC) Screen Not Detected Ethyl Alcohol COVID-19 (JABARI) COVID-19 Clin Com Influenza Type A (LILIYA) Influenza Type B (LILIYA) Influenza A & B Note 06/19/21 06/19/21 06/19/21 13:30 13:30 13:30 MCV 87.6 MCH 29.7 MCHC 33.9 RDW 12.9 Plt Count 630 H D MPV 8.9 L Immature Gran % (Auto) 0.2 Neut % (Auto) 61.3 Lymph % (Auto) 30.4 [place] % (Auto) 4.1 Eos % (Auto) 0.9 Baso % (Auto) 3.1 H Lymph # (Auto) 2.6 [place] # (Auto) 0.4 Eos # (Auto) 0.1 Baso # (Auto) 0.3 H Abs Immat Gran (auto) 0.02 Absolute Neuts (auto) 5.3 Absolute Nucleated RBC 0.000 Nucleated RBC % (auto) 0.0 Smear Tech's Comments VERIFIED Anion Gap 21 H Estim Creat Clear Calc 111.1 Estimated GFR > 60 Random Glucose 105 Calcium 9.0 D Magnesium 1.7 Total Bilirubin 0.3 AST 54 H ALT 35 H Alkaline Phosphatase 115 Troponin I High Sens Total Protein 7.2 Albumin 3.9 TSH 0.98 Urine Color Urine Appearance Urine pH Ur Specific [place] Urine Protein Urine Glucose (UA) Urine Ketones Urine Blood Urine Nitrite Ur Leukocyte Esterase Urine Test Urine Opiates Screen Urine Fentanyl Screen Ur Barbiturates Screen Ur Phencyclidine Scrn Ur Amphetamines Screen U Benzodiazepines Scrn Urine Cocaine Screen U Marijuana (THC) Screen Ethyl Alcohol 413 H* COVID-19 (JABARI) COVID-19 Clin Com Influenza Type A (LILIYA) Influenza Type B (LILIYA) Influenza A & B Note 06/19/21 06/19/21 06/19/21 13:30 13:30 13:30 MCV MCH MCHC RDW Plt Count MPV Immature Gran % (Auto) Neut % (Auto) Lymph % (Auto) [place] % (Auto) Eos % (Auto) Baso % (Auto) Lymph # (Auto) [place] # (Auto) Eos # (Auto) Baso # (Auto) Abs Immat Gran (auto) Absolute Neuts (auto) Absolute Nucleated RBC Nucleated RBC % (auto) Smear Tech's Comments Anion Gap Estim Creat Clear Calc Estimated GFR Random Glucose Calcium Magnesium Total Bilirubin AST ALT Alkaline Phosphatase Troponin I High Sens < 3.5 D Total Protein Albumin TSH Urine Color Urine Appearance Urine pH Ur Specific [place] Urine Protein Urine Glucose (UA) Urine Ketones Urine Blood Urine Nitrite Ur Leukocyte Esterase Urine Test Urine Opiates Screen Urine Fentanyl Screen Ur Barbiturates Screen Ur Phencyclidine Scrn Ur Amphetamines Screen U Benzodiazepines Scrn Urine Cocaine Screen U Marijuana (THC) Screen Ethyl Alcohol COVID-19 (JABARI) Negative COVID-19 Clin Com See Note Influenza Type A (LILIYA) Negative Influenza Type B (LILIYA) Negative Influenza A & B Note See Note 06/20/21 06/20/21 06:19 06:19 MCV 89.6 MCH 30.2 MCHC 33.7 RDW 12.9 Plt Count 436 H D MPV 9.4 Immature Gran % (Auto) 0.3 Neut % (Auto) 68.6 Lymph % (Auto) 21.0 [place] % (Auto) 5.4 Eos % (Auto) 3.3 Baso % (Auto) 1.4 Lymph # (Auto) 1.5 [place] # (Auto) 0.4 Eos # (Auto) 0.2 Baso # (Auto) 0.1 Abs Immat Gran (auto) 0.02 Absolute Neuts (auto) 5.0 Absolute Nucleated RBC 0.000 Nucleated RBC % (auto) 0.0 Smear Tech's Comments Anion Gap 13 Estim Creat Clear Calc 125.0 Estimated GFR > 60 Random Glucose 95 Calcium 7.8 L D Magnesium Total Bilirubin AST ALT Alkaline Phosphatase Troponin I High Sens Total Protein Albumin TSH Urine Color Urine Appearance Urine pH Ur Specific [place] Urine Protein Urine Glucose (UA) Urine Ketones Urine Blood Urine Nitrite Ur Leukocyte Esterase Urine Test Urine Opiates Screen Urine Fentanyl Screen Ur Barbiturates Screen Ur Phencyclidine Scrn Ur Amphetamines Screen U Benzodiazepines Scrn Urine Cocaine Screen U Marijuana (THC) Screen Ethyl Alcohol COVID-19 (JABARI) COVID-19 Clin Com Influenza Type A (LILIYA) Influenza Type B (LILIYA) Influenza A & B Note Assessment and Plan (1) Alcohol use disorder, mild, abuse: Status: Acute Plan 41-year-old female with a past medical history of anxiety, alcohol abuse, postur al tachycardia syndrome; presented to the hospital today with a chief complaint of tremulousness -concerning for alcohol withdrawal. ? admitted for following Alcohol withdrawal Monitor on CIWA protocol.? Patient started on phenobarb.? Thiamine folate and multivitamins Suicidal ideation Patient currently denies any suicidal ideations Mentioned she was initially depressed that she lost a friend. Spoke to our for suicide precautions. Postural tachycardia syndrome Patient reports that she was diagnosed with postural tachycardia syndrome at [facility].? Also reports she had normal echocardiogram.? Monitor on telemetry. DVT prophylaxis:? Lovenox Code status: Full code Attending Dr. Fuentes Continued hospitalization for management of alcohol withdrawal with phenobarbitol adn monitoring of potential symptoms of withdrawal Quality Stroke Does the patient have a stroke diagnosis?: No VTE Prior VTE?: No VTE Risk Level:: Medical - moderate - high VTE Device Contraindication: Treatment Not Indicated VTE Drug Contraindication: N/A - Med Ordered
[2021-06-20] MEDS: Thiamine HCL 100 MG TABLET PO (10:47)
[2021-06-20] MEDS: Multivitamin TABLET 1 TAB PO (10:47)
[2021-06-20] MEDS: Enoxaparin Sodium 40 MG/0.4 ML SYRINGE SUBCUT (10:47)
[2021-06-20] MEDS: Famotidine/PF 20 MG/2 ML VIAL IVPUSH (10:47)
[2021-06-20] MEDS: Folic Acid 1 MG TABLET PO (10:47)
--- NOTE | 2021-06-20 12:21 | MHC.CM.PN ---
Met with patient in regards to discharge planning. Patient lives alone, ambulates independently and had no services prior to coming to the hospital. PCP verified. Patient received 2 Moderna vaccines. HCP verified to be on file. Patient will need a Lyft at d/c. No services anticipated to be needed because patient is not home bound. Continue to monitor for d/c needs.
--- NOTE | 2021-06-20 12:38 | PC.NURSE ---
ambulating to and from bathroom w slow, steady gait. tolerating po w/o issue. given ice water per request.
[2021-06-20 15:42] VITALS: BP 131/90; PULSE 116; RESP 16; TEMP 36.8; O2SAT 99
--- NOTE | 2021-06-20 15:46 | P.DS_ITS ---
DS: Providers Provider Date of Service: 06/20/21 Date of admission: 06/19/21 23:35 Primary care physician: Ollie Pulliam PA-C Consults: 06/19/21 14:02 Consult to Crisis Stat Reason for consultation: SI, ETOH 06/20/21 00:22 Consult to Care Team Routine Comment: Reason for consultation: SI Attending physician on discharge: Timur Fuentes Discharging clinician: Kalyn Field DS: Diagnosis Discharge Diagnosis (1) Alcohol use disorder, mild, abuse: Status: Acute DS: Summary Hospital Course Hospital Course: HP as per admitting provider 41-year-old female with a past medical history of anxiety, alcohol abuse, postdural tachycardia syndrome; presented to the hospital today with a chief complaint of tremulousness -concerning for alcohol withdrawal.?Patient reports that she drinks about 50 shortness of alcohol every day; last drink was in the afternoon prior to coming to the hospital.? Mentioned that she was shaky and tremulous concerning for withdrawal; mentions that she also wanted to go to detox.?Patient also reports that she was recently presented to the hospital in and was said to the alcohol detox; stated for a week and subsequently went home and after she went home she started to drink again.?Denies any chest pain or palpitations.?Denies any nausea vomiting or diarrhea.?Denies any falls or trauma.?Patient denies any prior history of alcohol withdrawal seizures or delirium tremens.?Review of all other systems is negative except mentioned above ER course: Per ER team patient noted to be tachycardic, tremulous; patient is started on p.o. phenobarb protocol.? Alcohol level elevated to 400; labs essentially benign; ER team also mentioned that patient on presentation mentioned suicidal ideation to the triage nurse; - mentioned she was depressed as she recently lost a friend.?Patient denied any suicidal ideation to the ER staff,? and the ER team cleared her for any suicidal ideations.? Did not section told her .? Patient left against medical advice prior to completing treatment for alcohol withdrawal. She had some tachycardia with heart rate 110 to 120s. She was told that she needed to continue treatment with phenobarbital and IV fluids to avoid any negative outcomes including arrhythmia versus DTs. Patient reported that she felt better and she knew how to treat herself at this point. Patient reported that her symptoms could get worse and she could even a diet but she wanted to leave against medical advice. Left against medical advice Alcohol withdrawal Monitor on CIWA protocol.? Patient started on phenobarb.? Thiamine folate and multivitamins Suicidal ideation. Cleared by care team Patient currently denies any suicidal ideations Mentioned she was initially depressed that she lost a friend. Postural tachycardia syndrome Patient reports that she was diagnosed with postural tachycardia syndrome at [facility].? Also reports she had normal echocardiogram.? Monitor on telemetry. Time Spent with Patient Time attestation: Total time spent providing and/or coordinating discharge services: Discharge coordination time: Greater than 30 minutes Quality: Safe Use of Opioids Does Pt have an Active Cancer Diagnosis on the Problem List?: No Quality: Stroke Does the patient have a stroke diagnosis?: No Physical Exam Vital Signs: Vital Signs: Last Vital Signs Temp 98.2 F 06/20/21 15:42 Pulse 116 H 06/20/21 15:42 Resp 16 06/20/21 15:42 BP 131/90 H 06/20/21 15:42 Pulse Ox 99 06/20/21 15:42 BMI result Body Mass Index 22.6 LEFT AMA DS: Data Data Completed and Pending Completed studies during hospitalization [Text1]: Procedures Detoxification Services for Substance Abuse Treatment (01/20/21) Labs on day of discharge: Laboratory Results - last 24 hr 06/19/21 06/19/21 06/19/21 13:30 13:30 13:30 WBC RBC Hgb Hct MCV MCH MCHC RDW Plt Count MPV Immature Gran % (Auto) Neut % (Auto) Lymph % (Auto) [place] % (Auto) Eos % (Auto) Baso % (Auto) Lymph # (Auto) [place] # (Auto) Eos # (Auto) Baso # (Auto) Abs Immat Gran (auto) Absolute Neuts (auto) Absolute Nucleated RBC Nucleated RBC % (auto) Sodium Potassium Chloride Carbon Dioxide Anion Gap BUN Creatinine Estim Creat Clear Calc Estimated GFR Random Glucose Calcium TSH 0.98 COVID-19 (JABARI) Negative COVID-19 Clin Com See Note Influenza Type A (LILIYA) Negative Influenza Type B (LILIYA) Negative Influenza A & B Note See Note 06/20/21 06/20/21 06:19 06:19 WBC 7.3 RBC 3.64 L D Hgb 11.0 L D Hct 32.6 L D MCV 89.6 MCH 30.2 MCHC 33.7 RDW 12.9 Plt Count 436 H D MPV 9.4 Immature Gran % (Auto) 0.3 Neut % (Auto) 68.6 Lymph % (Auto) 21.0 [place] % (Auto) 5.4 Eos % (Auto) 3.3 Baso % (Auto) 1.4 Lymph # (Auto) 1.5 [place] # (Auto) 0.4 Eos # (Auto) 0.2 Baso # (Auto) 0.1 Abs Immat Gran (auto) 0.02 Absolute Neuts (auto) 5.0 Absolute Nucleated RBC 0.000 Nucleated RBC % (auto) 0.0 Sodium 136 Potassium 3.3 Chloride 103 Carbon Dioxide 23 Anion Gap 13 BUN 4 L D Creatinine 0.48 L Estim Creat Clear Calc 125.0 Estimated GFR > 60 Random Glucose 95 Calcium 7.8 L D TSH COVID-19 (JABARI) COVID-19 Clin Com Influenza Type A (LILIYA) Influenza Type B (LILIYA) Influenza A & B Note Discharge Plan Discharge Anticipated Discharge Date/Time: 06/20/21 15:45 Patient Disposition: Left Against Medical Advice Discharge Diagnosis: alcohol abuse and withdrawal Referrals: Ollie Pulliam PA-C [Primary Care Provider] - 1 Week Discharge Medications: No Action lorazepam 0.5 mg tablet 0.5 mg PO TID PRN (Reason: alcohol withdrawal) 5 Days Qty: 15 0RF folic acid 1 mg tablet 1 mg PO DAILY 90 Days Qty: 90 1RF thiamine HCl (vitamin B1) [Vitamin B-1] 100 mg tablet 100 mg PO DAILY Qty: 90 0RF sertraline 25 mg Tablet 25 mg PO DAILY 0RF naltrexone 50 mg tablet 50 mg PO DAILY 0RF Discharge Orders: Discharge Order (Routine); Ordered 06/20/21 Ordered By: Kalyn Field Diet: advance to usual diet Activity on Discharge: As tolerated Care Plan Goals: stop drinking alcohol Health Concerns: alcohol abuse Plan of Treatment: Left against medical advice prior to completing treatment for alcohol abuse /withdrawal Assessment: see discharge summary
== END 2021-06-20 16:57 | disposition left against medical advice (07) | DRG 201 ==
LOC: HO.ED 22:56 → HO.EDOVER 06-20 00:13
PROVIDERS: Nurse Practitioner Family; Admitting Provider Hospitalist; Emergency Provider Emergency Medicine; PCP Physician Assistant; Visit Provider Nurse Practitioner Acute Care
DX: I49.8 Other specified cardiac arrhythmias (principal); R45.851 Suicidal ideations; F41.9 Anxiety disorder, unspecified; F10.130 Alcohol abuse with withdrawal, uncomplicated; Z20.822 Contact with and (suspected) exposure to COVID-19; Z87.891 Personal history of nicotine dependence; Z88.2 Allergy status to sulfonamides; Z79.899 Other long term (current) drug therapy
CPT/HCPCS: 36415; 71046; 80048; 80053; 80307; 81003; 81025; 82077; 83735; 84443; 84484; 85025; 87502; 87635; 93005; 99285; J1650; J2060

== ENCOUNTER 2021-07-29 10:37 | Inpatient (IN) | payer OTHER, SELFPAY ==
[2021-07-29] VITALS (10 sets, daily range): BP systolic 99–126; BP diastolic 60–98; PULSE 86–132; RESP 14–18; TEMP 36.1–36.7; O2SAT 96–100; BMI 21.2
--- NOTE | ~2021-07-29 | CT_ITS ---
EXAMINATION: CT ABDOMEN AND PELVIS WITH CONTRAST CLINICAL INFORMATION: Left lower quadrant pain COMPARISON: Previous CT of the abdomen and pelvis most recent January 2021 TECHNIQUE: Multidetector volumetric images were obtained from the superior aspect of the liver through the pubic symphysis following administration 85 mL of Omnipaque 350 intravenous contrast. Sagittal and coronal reformatted images were obtained on the technologist's workstation. Oral contrast: Yes This CT examination was performed using dose optimization techniques as appropriate, variously including the following: *Automated exposure control *Adjustment of mA and/or kV according to patient size (this includes techniques or standardized protocols for targeted exams where dose is matched to indication/reason for exam; i.e. extremities or head) *Use of iterative reconstruction technique DLP: 266 mGy-cm FINDINGS: LUNG BASES: The visualized lung bases are unremarkable. LIVER, GALLBLADDER, AND BILIARY TREE: The liver is low in attenuation suggestive of fatty infiltration. The liver is enlarged. No focal liver lesion or biliary duct dilatation. Normal gallbladder. PANCREAS: Unremarkable. SPLEEN: Unremarkable. ADRENAL GLANDS: Unremarkable. KIDNEYS AND URETERS: 1.5 cm low-attenuation lesion exophytic to the lateral left kidney. Hounsfield units following IV contrast measure 36 not compatible with a simple cyst. In comparison with previous CT from 2020 this was high attenuation on noncontrast imaging, Hounsfield units measuring 40 and this may represent a complex hyperdense cyst. BLADDER: Not optimally distended. GASTROINTESTINAL TRACT: There is mild diverticulosis of the colon. There is wall thickening of the sigmoid colon questionable for mild sigmoid diverticulitis or colitis. Fall and large bowel is otherwise normal. The appendix is normal. The stomach is normal. ABDOMINAL WALL: There is a small umbilical hernia containing fat. LYMPH NODES: Normal. VASCULAR: Unremarkable. PELVIC VISCERA: There is an IUD in the uterus in satisfactory position. Uterus and adnexa are otherwise unremarkable. OSSEOUS STRUCTURES: Unremarkable. CT/CT abdomen pelvis w con IMPRESSION: Question mild diverticulitis or colitis of the sigmoid colon. 1.5 cm probable complex hyperdense cysts in the left kidney. Enlarged fatty liver. IUD in the uterus in satisfactory position. Fleischner guidelines were followed.
--- NOTE | 2021-07-29 10:57 | ECG_ITS ---
Test Reason : sojarac Blood Pressure : / mmHG Vent. Rate : 104 BPM Atrial Rate : 104 BPM P-R Int : 120 ms QRS Dur : 078 ms QT Int : 372 ms P-R-T Axes : 023 079 033 degrees QTc Int : 489 ms Sinus tachycardia Otherwise normal ECG When compared with ECG of 19-JUN-2021 21:04, No significant change was found Referred By: Сергей Davis Electronically Signed By:ALEM REYES
--- NOTE | 2021-07-29 11:14 | ED_ITS ---
HPI - Alcohol General Chief Complaint: ETOH/Substance Use Stated Complaint: NAUSEA,VOMITING,PALPITATIONS,ALC WITHDRAWAL Time Seen by Provider: 07/29/21 10:57 Source: patient and EMS Mode of arrival: EMS Limitations: no limitations History of Present Illness HPI narrative: 41 years old female with history of alcohol abuse and anxiety, patient has been bingeing on drinking alcohol for the past 7 days last drink was last night, patient is concerning of withdrawal symptoms, patient complains of tremulousness, patient also reportedly had visual hallucination last night of seeing spots that is not there but no auditory hallucination. Patient is complaining of nausea and vomiting. Patient had a history of alcohol withdrawal in the past that require hospitalization, patient is questioning withdrawal seizure. Related Data Home Medications Medication Instructions Recorded Confirmed naltrexone 50 mg tablet 50 mg PO DAILY 04/20/21 07/29/21 sertraline 25 mg tablet 25 mg PO DAILY 06/20/21 07/29/21 melatonin 5 mg tablet 5 mg PO BEDTIME PRN Sleep 07/29/21 07/29/21 Previous Rx's Medication Instructions Recorded folic acid 1 mg tablet 1 mg PO DAILY 90 days #90 tabs 05/24/21 thiamine HCl (vitamin B1) 100 mg 100 mg PO DAILY #90 tabs 05/24/21 tablet (Vitamin B-1) Allergies Allergy/AdvReac Type Severity Reaction Status Date / Time Sulfa (Sulfonamide Allergy Mild RASH Verified 07/29/21 10:57 Antibiotics) [SULFA (SULFONAMIDE ANTIBIOTICS)] magnesium AdvReac Diarrhea Verified 07/29/21 10:58 Review of Systems Review of Systems: All other systems are reviewed and are negative Constitutional: Reports as per HPI and Reports no additional constitutional complaints Eyes: Reports as per HPI and Reports no additional eye complaints Reports system reviewed and no additional complaints, except as documented Cardiovascular: Reports as per HPI and Reports no additional cardiovascular complaints Respiratory: Reports as per HPI and Reports no additional respiratory complaints Gastrointestinal: Reports as per HPI and Reports no additional gastrointestinal complaints Genitourinary: Reports no additional female genitourinary complaints Musculoskeletal: Reports no additional musculoskeletal complaints Skin/Breast: Reports system reviewed and no additional complaints, except as docu Psychiatric: Reports no additional psychiatric complaints Endocrine: Reports no additional endocrine complaints Hematologic/Lymphatic: Reports no additional hematologic/lymphatic complaints Allergic/Immunologic: Reports no additional allergic/immunologic complaints Reports system reviewed and no additional complaints, except as documented and Reports Abnormal speech present REPLACED BY [facility] Past Medical History Medical History Alcohol abuse Alcohol abuse Anxiety Surgical History No pertinent past surgical history Family History Family History Father Medical history unknown Mother Medical history unknown Paternal Grandfather Cancer Sister Epilepsy Daughter In good health Son In good health Social History Social History Household Members: None Housing: Apartment Do you presently have visiting nurse or other home services: No Alcohol intake: current Alcohol intake frequency: 3 or more drinks per day Alcohol type: hard liquor Patient Tobacco Use Status: Former Tobacco user e-Cigarette/Vaping Use: Never Used Use of substances other than those prescribed or required for medical reasons: No Advance Directives: Yes Advance Directives on File: Yes Advance Directives Date on File: 01/25/21 Patient : No service: No Current occupational status: unemployed Physical Exam ED Vital Signs: Vital Signs - 24 hr 07/29/21 10:50 07/29/21 12:08 07/29/21 12:44 Pulse Rate 132 H 103 H 103 H Respiratory Rate 18 16 16 Blood Pressure 126/98 H 118/79 115/79 Pulse Oximetry 100 100 97 Oxygen Delivery Method Room Air Room Air Room Air BMI result Body Mass Index 21.2 Vital signs have been reviewed as appeared to be correct. Blood pressure normal. Heart rate elevated. Respiration rate normal. Temperature normal. Oxygen saturation normal. Appearance: Anxious, in voluntary tremors, Alert. Oriented X3. No acute distress. Head: Normal external exam. Normocephalic. Atraumatic. No Morse signs noted. No raccoon eyes noted, mild tongue fasciculation. Eyes: PERRLA. EOMI. Conjunctiva and sclera normal. Eyelids normal. ENT: TM's Normal. Pharynx normal. Uvula midline. Moist mucous membranes. No trismus noted. No drooling noted. No muffled voice noted. Neck: Normal inspection. Neck supple. FROM. No adenopathy. Thyroid Normal. No meningeal signs. No neck mass noted. CVS: Normal heart rate and rhythm. Heart sound normal. No murmurs noted. Pulses normal throughout. Respiratory: No respiratory distress. Painless inspiration. Breath sounds normal. No wheezes/rales/rhonchi noted. Chest nontender. No accessory muscle usage noted or decreased air movement noted. Abdomen: Soft and nontender. Bowel sounds normal in all 4 quadrants. No distention noted. No organomegaly noted. No visible injury noted. Back: No CVA tenderness. Full range of motion noted. Skin: Skin warm and dry. Normal skin color. Normal skin turgor. No rashes/lesions/lacerations noted. Extremities: No lower extremity edema. Extremities exhibit normal range of motion. Extremities nontender. Neuro: Oriented X 3. Appear anxious. Cranial nerve exam: II-XII are grossly intact No motor deficit. No sensory deficit. Reflexes normal. Course Course Course Narrative: Assessment and plan: 41 years old female with history of alcohol abuse last use was yesterday presented with symptoms of alcohol withdrawal and visual hallucination, patient was started on p.o. phenobarb protocol for alcohol withdrawal. Will admit to continue with phenobarb protocol. [facility] - Alcohol Medical Records Attestation: I reviewed the patient's medical records. Lab Data Attestation: I reviewed the patient's lab results. Result diagrams: 07/29/21 11:13 07/29/21 11:13 Labs: Lab Results 07/29/21 07/29/21 07/29/21 Range/Units 11:13 11:13 11:13 WBC 6.3 (4.8-10.8) X10*3/uL RBC 3.70 L (4.20-5.50) X10*6/uL Hgb 11.6 L (12.0-16.0) g/dl Hct 34.2 L (37.0-47.0) % MCV 92.4 (80.0-98.0) fL MCH 31.4 (27.0-33.0) pg MCHC 33.9 (31.0-35.0) g/dl RDW 17.1 H (11.0-16.0) % Plt Count 281 D (160-400) X10*3/uL MPV 9.2 L (9.4-12.3) fL Immature Gran % (Auto) 0.3 (0.0-0.4) % Neut % (Auto) 64.8 (45-73) % Lymph % (Auto) 19.7 L (20-40) % [place] % (Auto) 13.3 H (2-11) % Eos % (Auto) 1.1 (0-4) % Baso % (Auto) 0.8 (0-2) % Lymph # (Auto) 1.2 (1.2-4.9) X10*3/uL [place] # (Auto) 0.8 (0.1-1.2) X10*3/uL Eos # (Auto) 0.1 (0.0-0.4) X10*3/uL Baso # (Auto) 0.1 (0.0-0.2) X10*3/uL Abs Immat Gran (auto) 0.02 (0.00-0.03) X10*3/uL Absolute Neuts (auto) 4.1 (2.0-8.3) x10*3/uL Absolute Nucleated RBC 0.000 (0.0-0.012) X10*3/uL Nucleated RBC % (auto) 0.0 (0.0-0.2) /100WBC Sodium 132 L (135-145) mmol/L Potassium 4.3 D (3.3-5.1) mmol/L Chloride 96 (96-108) mmol/L Carbon Dioxide 22 (22-29) mmol/L Anion Gap 18 (12-20) BUN 7 L D (9-16) mg/dL Creatinine 0.73 (0.5-1.4) mg/dL Estim Creat Clear Calc 82.2 Estimated GFR > 60 Random Glucose 119 H (60-115) mg/dL Calcium 8.9 D (8.4-10.2) mg/dL Total Bilirubin 2.6 H (0.0-1.0) mg/dL Direct Bilirubin 1.2 H (0.0-0.5) mg/dL AST 214 H (5-31) U/L ALT 99 H (0-31) U/L Alkaline Phosphatase 138 H (39-117) U/L Total Protein 6.7 (6.5-8.0) g/dL Albumin 3.7 (3.5-5.0) g/dL Lipase 49 (8-78) U/L Ethyl Alcohol mg/dL Influenza Type A (PCR) NEGATIVE (Negative) Influenza Type B (PCR) NEGATIVE (Negative) RSV RNA Qual (PCR) NEGATIVE (Negative) SARS-CoV-2 RNA (RT-PCR) NEGATIVE (Negative) 07/29/21 Range/Units 12:20 WBC (4.8-10.8) X10*3/uL RBC (4.20-5.50) X10*6/uL Hgb (12.0-16.0) g/dl Hct (37.0-47.0) % MCV (80.0-98.0) fL MCH (27.0-33.0) pg MCHC (31.0-35.0) g/dl RDW (11.0-16.0) % Plt Count (160-400) X10*3/uL MPV (9.4-12.3) fL Immature Gran % (Auto) (0.0-0.4) % Neut % (Auto) (45-73) % Lymph % (Auto) (20-40) % [place] % (Auto) (2-11) % Eos % (Auto) (0-4) % Baso % (Auto) (0-2) % Lymph # (Auto) (1.2-4.9) X10*3/uL [place] # (Auto) (0.1-1.2) X10*3/uL Eos # (Auto) (0.0-0.4) X10*3/uL Baso # (Auto) (0.0-0.2) X10*3/uL Abs Immat Gran (auto) (0.00-0.03) X10*3/uL Absolute Neuts (auto) (2.0-8.3) x10*3/uL Absolute Nucleated RBC (0.0-0.012) X10*3/uL Nucleated RBC % (auto) (0.0-0.2) /100WBC Sodium (135-145) mmol/L Potassium (3.3-5.1) mmol/L Chloride (96-108) mmol/L Carbon Dioxide (22-29) mmol/L Anion Gap (12-20) BUN (9-16) mg/dL Creatinine (0.5-1.4) mg/dL Estim Creat Clear Calc Estimated GFR Random Glucose (60-115) mg/dL Calcium (8.4-10.2) mg/dL Total Bilirubin (0.0-1.0) mg/dL Direct Bilirubin (0.0-0.5) mg/dL AST (5-31) U/L ALT (0-31) U/L Alkaline Phosphatase (39-117) U/L Total Protein (6.5-8.0) g/dL Albumin (3.5-5.0) g/dL Lipase (8-78) U/L Ethyl Alcohol < 10 mg/dL Influenza Type A (PCR) (Negative) Influenza Type B (PCR) (Negative) RSV RNA Qual (PCR) (Negative) SARS-CoV-2 RNA (RT-PCR) (Negative) Discharge Plan Discharge Clinical Impression: Alcohol withdrawal Patient Disposition: Admitted As Inpatient Prescriptions: No Action folic acid 1 mg tablet 1 mg PO DAILY 90 Days Qty: 90 1RF thiamine HCl (vitamin B1) [Vitamin B-1] 100 mg tablet 100 mg PO DAILY Qty: 90 0RF sertraline 25 mg Tablet 25 mg PO DAILY melatonin 5 mg Tablet 5 mg PO BEDTIME PRN (Reason: Sleep) naltrexone 50 mg tablet 50 mg PO DAILY
[2021-07-29 11:16] LABS: MANUAL DIFF FLAG NO
[2021-07-29 11:20] LABS: Basophils Absolute Auto 0.1 X10*3/uL (0.0-0.2); Basophils Percent Auto 0.8 % (0-2); Eosinophils Absolute Auto 0.1 X10*3/uL (0.0-0.4); Eosinophils Percent Auto 1.1 % (0-4); Hematocrit 34.2 % (37.0-47.0); Hemoglobin 11.6 g/dl (12.0-16.0); Imm Gran Abs Auto 0.02 X10*3/uL (0.00-0.03); Imm Gran Pct Auto 0.3 % (0.0-0.4); Lymphocytes Absolute Auto 1.2 X10*3/uL (1.2-4.9); Lymphocytes Percent Auto 19.7 % (20-40); Mean Corpuscular HGB Conc 33.9 g/dl (31.0-35.0); Mean Corpuscular Hemoglobin 31.4 pg (27.0-33.0); Mean Corpuscular Volume 92.4 fL (80.0-98.0); Mean Platelet Volume 9.2 fL (9.4-12.3); Monocytes Absolute Auto 0.8 X10*3/uL (0.1-1.2); Monocytes Percent Auto 13.3 % (2-11); Neutrophils Absolute Auto 4.1 x10*3/uL (2.0-8.3); Neutrophils Percent Auto 64.8 % (45-73); Platelet Count 281 X10*3/uL (160-400); Red Cell Distribution Width 17.1 % (11.0-16.0); White Blood Count 6.3 X10*3/uL (4.8-10.8)
[2021-07-29] MEDS: 0.9 % Sodium Chloride 1,000 ML 999 ML IV (11:23)
[2021-07-29] MEDS: LORazepam 2 MG/ML VIAL 1 MG IVPUSH (11:23)
[2021-07-29] MEDS: Famotidine/PF 20 MG/2 ML VIAL IVPUSH (11:23)
[2021-07-29] MEDS: ondansetron HCL 4 MG/2 ML VIAL IVPUSH (11:23)
[2021-07-29 11:38] LABS: Alanine Aminotransferase 99 U/L (0-31); Albumin Level 3.7 g/dL (3.5-5.0); Alkaline Phosphatase 138 U/L (39-117); Anion Gap 18 (12-20); Aspartate Amino Transferase 214 U/L (5-31); Bilirubin Direct 1.2 mg/dL (0.0-0.5); Bilirubin Total 2.6 mg/dL (0.0-1.0); Blood Urea Nitrogen 7 mg/dL (9-16); Calcium 8.9 mg/dL (8.4-10.2); Carbon Dioxide 22 mmol/L (22-29); Chloride 96 mmol/L (96-108); Creatinine Clr Calc Pharmacy 82.2; Estimated Glomerular Filt Rate > 60; Glucose Random 119 mg/dL (60-115); Lipase 49 U/L (8-78); Potassium 4.3 mmol/L (3.3-5.1); Sodium 132 mmol/L (135-145); Total Protein 6.7 g/dL (6.5-8.0)
[2021-07-29 11:59] LABS: Influenza A PCR NEGATIVE (Negative); Influenza B PCR NEGATIVE (Negative); Resp Syncy Virus RNA Qual PCR NEGATIVE (Negative); SARS COV2 PCR INHOUSE NEGATIVE (Negative)
--- NOTE | 2021-07-29 12:40 | PHA.MEDREC ---
MED REC COMPLETE, PATIENT MAY NOT HAVE BEEN TAKING MEDS REGULARLY, PHARMACY FILL HISTORY SHOWS THEY HAVE NOT BEEN FILLED REGULARLY Pharmacy Consult ? Medication Reconciliation Pharmacy has completed the medication reconciliation.
[2021-07-29 12:41] LABS: Ethanol < 10 mg/dL
[2021-07-29] MEDS: PHENobarbitaL 100 MG, PHENobarbitaL 60 MG 160 MG PO (12:45)
--- NOTE | 2021-07-29 14:11 | P.HPHOSP_ITS ---
History of Present Illness Date of Service: 07/29/21 Chief Complaint: Alcohol withdraw 41 years old female with history of alcohol abuse and anxiety, patient has been bingeing on drinking alcohol for the past 7 days last drink was last night, patient is concerning of withdrawal symptoms, patient complains of tremu lousness, patient also reportedly had visual hallucination last night of seeing spots that is not there but no auditory hallucination.? Patient is complaining of nausea and vomiting. Review of Systems Review of Systems: Denies chest pain Denies shortness of breath Denies nausea vomiting diarrhea Denies fever chills PMFSH Medical History Alcohol abuse Alcohol abuse Anxiety Family History Father Medical history unknown Mother Medical history unknown Paternal Grandfather Cancer Sister Epilepsy Daughter In good health Son In good health Surgical History No pertinent past surgical history Social History Household Members: None Housing: Apartment Do you presently have visiting nurse or other home services: No Alcohol intake: current Alcohol intake frequency: 3 or more drinks per day Alcohol type: hard liquor Patient Tobacco Use Status: Former Tobacco user e-Cigarette/Vaping Use: Never Used Use of substances other than those prescribed or required for medical reasons: No Advance Directives: Yes Advance Directives on File: Yes Advance Directives Date on File: 01/25/21 Patient : No service: No Current occupational status: unemployed Meds Allergies Allergy/AdvReac Type Severity Reaction Status Date / Time Sulfa (Sulfonamide Allergy Mild RASH Verified 07/29/21 10:57 Antibiotics) [SULFA (SULFONAMIDE ANTIBIOTICS)] magnesium AdvReac Diarrhea Verified 07/29/21 10:58 Active Medications: Current Medications Folic Acid (Folic Acid 1 Mg Tablet) 1 mg PO DAILY [facility] Naltrexone HCl (Naltrexone Hcl 50 Mg Tablet) 50 mg PO DAILY [facility] Pharmacy Consult (Consult Rx Etoh Phenob Po Dose) 1 each MISCELLANE ONCE PRN; P rotocol PRN Reason: Consult order Pharmacy Consult (Consult Rx Perform Med Rec) 1 each MISCELLANE ONCE PRN PRN Reason: Consult order Phenobarbital 100 mg/ (Phenobarbital 30 mg) 130 mg PO Q3H [facility] Stop: 07/29/21 19:01 Phenobarbital (Phenobarbital 15 Mg Tablet) 45 mg PO BID [facility] Stop: 07/31/21 21:01 Phenobarbital (Phenobarbital 15 Mg Tablet) 15 mg PO BID [facility] Stop: 08/02/21 21:01 Phenobarbital (Phenobarbital 15 Mg Tablet) 15 mg PO DAILY [facility] Stop: 08/04/21 09:01 Sertraline HCl (Sertraline Hcl 25 Mg Tablet) 25 mg PO DAILY [facility] Sodium Chloride (0.9 % Sodium Chloride Flush 3 Ml Syringe) 3 ml IVFLUSH QSHIFT [facility] Thiamine HCl (Thiamine Hcl 100 Mg Tablet) 100 mg PO DAILY [facility] Home Medications Medication Instructions Recorded Confirmed Last Taken Type naltrexone 50 mg tablet 50 mg PO DAILY 04/20/21 07/29/21 Unknown History sertraline 25 mg tablet 25 mg PO DAILY 06/20/21 07/29/21 Unknown History melatonin 5 mg tablet 5 mg PO BEDTIME PRN Sleep 07/29/21 07/29/21 Unknown History Physical Exam Vital Signs and Narrative: Vital Signs: Last Vital Signs Pulse 103 H 07/29/21 12:44 Resp 16 07/29/21 12:44 BP 115/79 07/29/21 12:44 Pulse Ox 97 07/29/21 12:44 O2 Del Method 07/29/21 12:44 BMI result Body Mass Index 21.2 Const: Other: no acute distress Resp: Other: clear to auscultation bilaterally no rales rhonchi or wheezes Cardio: Other: no S4; positive S1-S2; no S3 murmurs of gallops GI: Other: soft positive bowel sounds x4 Neuro: Other: cranial nerves 2-12 grossly intact as tested. Motor is 5/5 all extremities. Sensation intact Extrem: Other: no edema bilaterally Results Labs CBC and Chem 7: 07/29/21 11:13 07/29/21 11:13 Labs: Laboratory Results - last 24 hr 07/29/21 07/29/21 07/29/21 11:13 11:13 11:13 MCV 92.4 MCH 31.4 MCHC 33.9 RDW 17.1 H Plt Count 281 D MPV 9.2 L Immature Gran % (Auto) 0.3 Neut % (Auto) 64.8 Lymph % (Auto) 19.7 L [place] % (Auto) 13.3 H Eos % (Auto) 1.1 Baso % (Auto) 0.8 Lymph # (Auto) 1.2 [place] # (Auto) 0.8 Eos # (Auto) 0.1 Baso # (Auto) 0.1 Abs Immat Gran (auto) 0.02 Absolute Neuts (auto) 4.1 Absolute Nucleated RBC 0.000 Nucleated RBC % (auto) 0.0 Anion Gap 18 Estim Creat Clear Calc 82.2 Estimated GFR > 60 Random Glucose 119 H Calcium 8.9 D Magnesium 2.0 Total Bilirubin 2.6 H Direct Bilirubin 1.2 H AST 214 H ALT 99 H Alkaline Phosphatase 138 H Total Protein 6.7 Albumin 3.7 Lipase 49 Ethyl Alcohol Influenza Type A (PCR) NEGATIVE Influenza Type B (PCR) NEGATIVE RSV RNA Qual (PCR) NEGATIVE SARS-CoV-2 RNA (RT-PCR) NEGATIVE 07/29/21 12:20 MCV MCH MCHC RDW Plt Count MPV Immature Gran % (Auto) Neut % (Auto) Lymph % (Auto) [place] % (Auto) Eos % (Auto) Baso % (Auto) Lymph # (Auto) [place] # (Auto) Eos # (Auto) Baso # (Auto) Abs Immat Gran (auto) Absolute Neuts (auto) Absolute Nucleated RBC Nucleated RBC % (auto) Anion Gap Estim Creat Clear Calc Estimated GFR Random Glucose Calcium Magnesium Total Bilirubin Direct Bilirubin AST ALT Alkaline Phosphatase Total Protein Albumin Lipase Ethyl Alcohol < 10 Influenza Type A (PCR) Influenza Type B (PCR) RSV RNA Qual (PCR) SARS-CoV-2 RNA (RT-PCR) Assessment and Plan (1) Alcohol use disorder, mild, abuse: Status: Acute (2) Elevated liver function tests: Status: Acute Plan 41-year-old female with longstanding history of alcohol abuse presents to the emergency room with symptoms of alcohol withdrawal after trying to self taper her drinking. States she was taking naltrexone with good effect but thought she did not needed anymore. Shortly thereafter she began drinking again and her attempt at wean failed. In the emergency room she has responded well to p.o. p henobarbital 1. Alcohol withdrawal - phenobarb protocol - Ativan p.r.n. breakthrough; Zofran for nausea - CIWA protocol - addiction medicine consult 2,Alcoholic hepatitis - trend LFTs full code pneumatics or required 2 midnights going forward to complete phenobarb protocol with IV Ativan back up. This cannot be achieved in a less acute facility Quality Stroke Does the patient have a stroke diagnosis?: No VTE Prior VTE?: No VTE Risk Level:: Medical - moderate - high VTE Device Contraindication: N/A - Device Ordered VTE Drug Contraindication: Treatment Not Indicated
[2021-07-29] MEDS: Folic Acid 1 MG TABLET PO (14:36)
[2021-07-29] MEDS: Naltrexone HCl 50 MG TABLET PO (17:20)
[2021-07-29 17:36] LABS: Appearance Urine HAZY; Color Urine ORANGE; Glucose Urine UA NEG (NEG); Leukocyte Esterase Urine NEG (NEG); Nitrite Urine NEG (NEG); Specific Gravity - Urine <= 1.005 (1.005-1.025); Urine Blood NEG (NEG); Urine Ketones NEG (NEG); Urine Protein NEG (NEG-TRACE)
--- NOTE | 2021-07-29 21:57 | MHC.CM.PN ---
CM met with patient. Sleeping, but easily arousable. A&Ox4. Lives alone. No DME or Services. Vax x2/Moderna. HCP on file. HCP/mother Kaelyn Tam ([phone]). Active with [facility] in [place]. Will continue with their services. [place] [facility] [place]. D/C plan: Home with [facility]. Transport via Uber/friend. CM to follow for d/c needs.
[2021-07-30] VITALS (7 sets, daily range): BP systolic 101–126; BP diastolic 69–98; PULSE 77–113; RESP 16–20; TEMP 36.1–37.2; O2SAT 96–97; BMI 22.2
[2021-07-30] MEDS: 0.9 % Sodium Chloride Flush 3 ML SYRINGE IVFLUSH ×4 (00:16→22:45)
[2021-07-30] MEDS: Folic Acid 1 MG TABLET PO (07:31)
[2021-07-30] MEDS: PHENobarbitaL 15 MG TABLET 45 MG PO ×2 (07:32→20:44)
[2021-07-30] MEDS: Thiamine HCL 100 MG TABLET PO (07:32)
[2021-07-30] MEDS: Sertraline HCL 25 MG TABLET PO (07:32)
[2021-07-30] MEDS: ondansetron HCL 4 MG/2 ML VIAL IVPUSH (10:41)
[2021-07-30] MEDS: HYDROmorphone HCl 1 MG/ML SYRINGE 0.75 MG IVPUSH (10:41)
[2021-07-30 11:14] LABS: MANUAL DIFF FLAG NO
[2021-07-30 11:18] LABS: Basophils Absolute Auto 0.1 X10*3/uL (0.0-0.2); Basophils Percent Auto 1.3 % (0-2); Eosinophils Absolute Auto 0.2 X10*3/uL (0.0-0.4); Eosinophils Percent Auto 4.3 % (0-4); Hematocrit 31.8 % (37.0-47.0); Hemoglobin 10.9 g/dl (12.0-16.0); Imm Gran Abs Auto 0.02 X10*3/uL (0.00-0.03); Imm Gran Pct Auto 0.4 % (0.0-0.4); Lymphocytes Absolute Auto 1.3 X10*3/uL (1.2-4.9); Lymphocytes Percent Auto 23.6 % (20-40); Mean Corpuscular HGB Conc 34.3 g/dl (31.0-35.0); Mean Corpuscular Hemoglobin 31.7 pg (27.0-33.0); Mean Corpuscular Volume 92.4 fL (80.0-98.0); Mean Platelet Volume 9.1 fL (9.4-12.3); Monocytes Absolute Auto 0.7 X10*3/uL (0.1-1.2); Monocytes Percent Auto 11.8 % (2-11); Neutrophils Absolute Auto 3.3 x10*3/uL (2.0-8.3); Neutrophils Percent Auto 58.6 % (45-73); Platelet Count 243 X10*3/uL (160-400); Red Blood Count 3.44 X10*6/uL (4.20-5.50); Red Cell Distribution Width 16.9 % (11.0-16.0); White Blood Count 5.6 X10*3/uL (4.8-10.8)
[2021-07-30 11:39] LABS: Alanine Aminotransferase 89 U/L (0-31); Albumin Level 3.5 g/dL (3.5-5.0); Alkaline Phosphatase 117 U/L (39-117); Anion Gap 17 (12-20); Aspartate Amino Transferase 192 U/L (5-31); Bilirubin Total 1.3 mg/dL (0.0-1.0); Blood Urea Nitrogen 6 mg/dL (9-16); Calcium 9.1 mg/dL (8.4-10.2); Carbon Dioxide 21 mmol/L (22-29); Chloride 98 mmol/L (96-108); Creatinine Clr Calc Pharmacy 98.3; Estimated Glomerular Filt Rate > 60; Glucose Random 108 mg/dL (60-115); Lipase 68 U/L (8-78); Potassium 3.3 mmol/L (3.3-5.1); Sodium 133 mmol/L (135-145); Total Protein 6.3 g/dL (6.5-8.0)
--- NOTE | 2021-07-30 14:09 | P.PNIM_ITS ---
Subjective Subjective Date of Service: 07/30/21 Interval History: doing well with phenobarb protocol. Developed some left lower quadrant pain overnight Review of Systems Denies chest pain Denies shortness of breath Denies nausea vomiting diarrhea Denies fever chills Physical Exam Vital Signs: Vital Signs: Last Vital Signs Temp 98.6 F 07/30/21 11:58 Pulse 88 07/30/21 11:58 Resp 20 07/30/21 11:58 BP 126/98 H 07/30/21 11:58 Pulse Ox 96 07/30/21 11:58 O2 Del Method 07/30/21 11:58 BMI result Body Mass Index 22.2 Const: Other: no acute distress Resp: Other: clear to auscultation bilaterally no rales rhonchi or wheezes Cardio: Other: no S4; positive S1-S2; no S3 murmurs of gallops GI: Other: soft positive bowel sounds x4. mild left lower quadrant tenderness without rebound Neuro: Other: cranial nerves 2-12 grossly intact as tested. Motor is 5/5 all extremities. Sensation intact Extrem: Other: no edema bilaterally Objective Data Active Medications Folic Acid (Folic Acid 1 Mg Tablet) 1 mg PO DAILY [facility] Last Admin: 07/30/21 07:31 Dose: 1 mg Documented By: OLGA Naltrexone HCl (Naltrexone Hcl 50 Mg Tablet) 50 mg PO DAILY [facility] Last Admin: 07/30/21 10:20 Dose: Not Given Documented By: OLGA Non-Admin Reason: Patient Refused Ondansetron HCl (Ondansetron Hcl 4 Mg/2 Ml Vial) 4 mg IVPUSH Q4H PRN PRN Reason: Nausea and Vomiting Last Admin: 07/30/21 10:41 Dose: 4 mg Documented By: OLGA Pharmacy Consult (Consult Rx Etoh Phenob Po Dose) 1 each MISCELLANE ONCE PRN; Protocol PRN Reason: Consult order Pharmacy Consult (Consult Rx Perform Med Rec) 1 each MISCELLANE ONCE PRN PRN Reason: Consult order Phenobarbital (Phenobarbital 15 Mg Tablet) 45 mg PO BID [facility] Stop: 07/31/21 21:01 Last Admin: 07/30/21 07:32 Dose: 45 mg Documented By: OLGA Phenobarbital (Phenobarbital 15 Mg Tablet) 15 mg PO BID [facility] Stop: 08/02/21 21:01 Phenobarbital (Phenobarbital 15 Mg Tablet) 15 mg PO DAILY [facility] Stop: 08/04/21 09:01 Sertraline HCl (Sertraline Hcl 25 Mg Tablet) 25 mg PO DAILY [facility] Last Admin: 07/30/21 07:32 Dose: 25 mg Documented By: OLGA Sodium Chloride (0.9 % Sodium Chloride Flush 3 Ml Syringe) 3 ml IVFLUSH QSHIFT [facility] Last Admin: 07/30/21 07:31 Dose: 3 ml Documented By: OLGA Thiamine HCl (Thiamine Hcl 100 Mg Tablet) 100 mg PO DAILY [facility] Last Admin: 07/30/21 07:32 Dose: 100 mg Documented By: OLGA Labs CBC & Chem 7: 07/30/21 11:09 07/30/21 11:09 Labs: Laboratory Results - last 24 hr 07/29/21 07/30/21 07/30/21 17:26 11:09 11:09 MCV 92.4 MCH 31.7 MCHC 34.3 RDW 16.9 H Plt Count 243 MPV 9.1 L Immature Gran % (Auto) 0.4 Neut % (Auto) 58.6 Lymph % (Auto) 23.6 [place] % (Auto) 11.8 H Eos % (Auto) 4.3 H Baso % (Auto) 1.3 Lymph # (Auto) 1.3 [place] # (Auto) 0.7 Eos # (Auto) 0.2 Baso # (Auto) 0.1 Abs Immat Gran (auto) 0.02 Absolute Neuts (auto) 3.3 Absolute Nucleated RBC 0.000 Nucleated RBC % (auto) 0.0 Anion Gap 17 Estim Creat Clear Calc 98.3 Estimated GFR > 60 Random Glucose 108 Calcium 9.1 Total Bilirubin 1.3 H AST 192 H ALT 89 H Alkaline Phosphatase 117 Total Protein 6.3 L Albumin 3.5 Lipase 68 Urine Color ORANGE A Urine Appearance HAZY Urine pH 7.0 Ur Specific Avery <= 1.005 Urine Protein NEG Urine Glucose (UA) NEG Urine Ketones NEG Urine Blood NEG Urine Nitrite NEG Ur Leukocyte Esterase NEG Assessment and Plan (1) Alcohol withdrawal: Status: Acute (2) Abdominal pain: Status: Acute (3) Transaminitis: Status: Acute Plan 41-year-old female with longstanding history of alcohol abuse presents to the emergency room with symptoms of alcohol withdrawal after trying to self taper her drinking. States she was taking naltrexone with good effect but thought she did not needed anymore. Shortly thereafter she began drinking again and her attempt at wean failed. In the emergency room she has responded well to p.o. phenobarbital 1. Alcohol withdrawal... doing well with protocol - phenobarb protocol - Ativan p.r.n. breakthrough; Zofran for nausea - CIWA protocol - addiction medicine consult 2. Left lower quadrant abdominal pain - history diverticulitis - check CBC and LFTs; CT scan of abdomen 3.Alcoholic hepatitis - mild improvement in parameters - trend LFTs full code pneumatics Will required hospitalization to complete phenobarb protocol with IV Ativan back up; high risk for outpatient failure. Quality Stroke Does the patient have a stroke diagnosis?: No VTE Prior VTE?: No VTE Risk Level:: Medical - moderate - high VTE Device Contraindication: N/A - Device Ordered VTE Drug Contraindication: Treatment Not Indicated
[2021-07-30] MEDS: Barium Sulfate Oral (Vanilla) 450 ML ORAL.SUSP 900 ML PO (15:02)
[2021-07-30] MEDS: Piperacillin Sodium/Tazobactam 3.375 GM in 0.9 % Sodium Chloride 50 ML IV ×2 (16:16→22:45)
[2021-07-31] VITALS (7 sets, daily range): BP systolic 93–121; BP diastolic 61–85; PULSE 65–99; RESP 16–17; TEMP 36.2–37.1; O2SAT 95–99
[2021-07-31] MEDS: Piperacillin Sodium/Tazobactam 3.375 GM in 0.9 % Sodium Chloride 50 ML IV ×4 (04:55→22:57)
[2021-07-31 06:22] LABS: MANUAL DIFF FLAG NO
[2021-07-31 06:37] LABS: Basophils Absolute Auto 0.1 X10*3/uL (0.0-0.2); Basophils Percent Auto 1.3 % (0-2); Eosinophils Absolute Auto 0.3 X10*3/uL (0.0-0.4); Eosinophils Percent Auto 6.3 % (0-4); Hematocrit 32.4 % (37.0-47.0); Hemoglobin 10.8 g/dl (12.0-16.0); Imm Gran Abs Auto 0.02 X10*3/uL (0.00-0.03); Imm Gran Pct Auto 0.4 % (0.0-0.4); Lymphocytes Absolute Auto 1.5 X10*3/uL (1.2-4.9); Lymphocytes Percent Auto 30.7 % (20-40); Mean Corpuscular HGB Conc 33.3 g/dl (31.0-35.0); Mean Corpuscular Hemoglobin 31.5 pg (27.0-33.0); Mean Corpuscular Volume 94.5 fL (80.0-98.0); Mean Platelet Volume 9.8 fL (9.4-12.3); Monocytes Absolute Auto 0.6 X10*3/uL (0.1-1.2); Monocytes Percent Auto 13.4 % (2-11); Neutrophils Absolute Auto 2.3 x10*3/uL (2.0-8.3); Neutrophils Percent Auto 47.9 % (45-73); Platelet Count 263 X10*3/uL (160-400); Red Blood Count 3.43 X10*6/uL (4.20-5.50); Red Cell Distribution Width 17.1 % (11.0-16.0); White Blood Count 4.8 X10*3/uL (4.8-10.8)
[2021-07-31 06:51] LABS: Alanine Aminotransferase 79 U/L (0-31); Albumin Level 3.3 g/dL (3.5-5.0); Alkaline Phosphatase 112 U/L (39-117); Anion Gap 15 (12-20); Aspartate Amino Transferase 159 U/L (5-31); Bilirubin Total 1.2 mg/dL (0.0-1.0); Blood Urea Nitrogen 4 mg/dL (9-16); Calcium 8.6 mg/dL (8.4-10.2); Carbon Dioxide 24 mmol/L (22-29); Chloride 101 mmol/L (96-108); Creatinine Clr Calc Pharmacy 90.9; Estimated Glomerular Filt Rate > 60; Glucose Fasting 113 mg/dL (60-99); Potassium 3.5 mmol/L (3.3-5.1); Sodium 136 mmol/L (135-145); Total Protein 6.1 g/dL (6.5-8.0)
[2021-07-31] MEDS: Thiamine HCL 100 MG TABLET PO (08:35)
[2021-07-31] MEDS: Folic Acid 1 MG TABLET PO (08:35)
[2021-07-31] MEDS: Sertraline HCL 25 MG TABLET PO (08:35)
[2021-07-31] MEDS: 0.9 % Sodium Chloride Flush 3 ML SYRINGE IVFLUSH ×2 (08:35→16:18)
[2021-07-31] MEDS: Naltrexone HCl 50 MG TABLET PO (08:35)
[2021-07-31] MEDS: PHENobarbitaL 15 MG TABLET 45 MG PO ×2 (08:35→20:33)
--- NOTE | 2021-07-31 12:58 | HO.PM.IMPN ---
Subjective Subjective Date of Service: 07/31/21 Interval History: doing well with phenobarb protocol. diverticulitis by CT scan; pain improved this a.m. of diarrhea persist Review of Systems Denies chest pain Denies shortness of breath Denies nausea vomiting diarrhea Denies fever chills Physical Exam Vital Signs: Vital Signs: Last Vital Signs Temp 98.8 F 07/31/21 12:00 Pulse 65 07/31/21 12:00 Resp 16 07/31/21 12:00 BP 121/75 07/31/21 12:00 Pulse Ox 98 07/31/21 12:00 O2 Del Method 07/31/21 12:00 O2 Flow Rate 1 07/31/21 03:27 BMI result Body Mass Index 22.2 Const: Other: no acute distress Resp: Other: clear to auscultation bilaterally no rales rhonchi or wheezes Cardio: Other: no S4; positive S1-S2; no S3 murmurs of gallops GI: Other: soft positive bowel sounds x4. mild left lower quadrant tenderness without rebound Neuro: Other: cranial nerves 2-12 grossly intact as tested. Motor is 5/5 all extremities. Sensation intact Extrem: Other: no edema bilaterally Objective Data Active Medications Folic Acid (Folic Acid 1 Mg Tablet) 1 mg PO DAILY [facility] Last Admin: 07/31/21 08:35 Dose: 1 mg Documented By: SVETA Piperacillin Sod/Tazobactam (Sod 3.375 gm/ Sodium Chloride) 50 mls @ 100 mls/hr IV Q6H [facility] Last Infusion: 07/31/21 12:45 Dose: 0 mls/hr Documented By: SVETA Naltrexone HCl (Naltrexone Hcl 50 Mg Tablet) 50 mg PO DAILY [facility] Last Admin: 07/31/21 08:35 Dose: 50 mg Documented By: SVETA Ondansetron HCl (Ondansetron Hcl 4 Mg/2 Ml Vial) 4 mg IVPUSH Q4H PRN PRN Reason: Nausea and Vomiting Last Admin: 07/30/21 10:41 Dose: 4 mg Documented By: OLGA Pharmacy Consult (Consult Rx Etoh Phenob Po Dose) 1 each MISCELLANE ONCE PRN; Protocol PRN Reason: Consult order Pharmacy Consult (Consult Rx Perform Med Rec) 1 each MISCELLANE ONCE PRN PRN Reason: Consult order Phenobarbital (Phenobarbital 15 Mg Tablet) 45 mg PO BID [facility] Stop: 07/31/21 21:01 Last Admin: 07/31/21 08:35 Dose: 45 mg Documented By: SVETA Phenobarbital (Phenobarbital 15 Mg Tablet) 15 mg PO BID [facility] Stop: 08/02/21 21:01 Phenobarbital (Phenobarbital 15 Mg Tablet) 15 mg PO DAILY [facility] Stop: 08/04/21 09:01 Sertraline HCl (Sertraline Hcl 25 Mg Tablet) 25 mg PO DAILY [facility] Last Admin: 07/31/21 08:35 Dose: 25 mg Documented By: SVETA Sodium Chloride (0.9 % Sodium Chloride Flush 3 Ml Syringe) 3 ml IVFLUSH QSHIFT [facility] Last Admin: 07/31/21 08:35 Dose: 3 ml Documented By: SVETA Thiamine HCl (Thiamine Hcl 100 Mg Tablet) 100 mg PO DAILY [facility] Last Admin: 07/31/21 08:35 Dose: 100 mg Documented By: SVETA Labs CBC & Chem 7: 07/31/21 05:48 07/31/21 05:48 Labs: Laboratory Results - last 24 hr 07/31/21 07/31/21 05:48 05:48 MCV 94.5 MCH 31.5 MCHC 33.3 RDW 17.1 H Plt Count 263 MPV 9.8 Immature Gran % (Auto) 0.4 Neut % (Auto) 47.9 Lymph % (Auto) 30.7 [place] % (Auto) 13.4 H Eos % (Auto) 6.3 H Baso % (Auto) 1.3 Lymph # (Auto) 1.5 [place] # (Auto) 0.6 Eos # (Auto) 0.3 Baso # (Auto) 0.1 Abs Immat Gran (auto) 0.02 Absolute Neuts (auto) 2.3 Absolute Nucleated RBC 0.000 Nucleated RBC % (auto) 0.0 Anion Gap 15 Estim Creat Clear Calc 90.9 Estimated GFR > 60 Fasting Glucose 113 H Calcium 8.6 Total Bilirubin 1.2 H AST 159 H ALT 79 H Alkaline Phosphatase 112 Total Protein 6.1 L Albumin 3.3 L Assessment and Plan (1) Alcohol use disorder, mild, abuse: Status: Acute (2) Diverticulitis: Status: Acute (3) Transaminitis: Status: Acute Plan 41-year-old female with longstanding history of alcohol abuse presents to the emergency room with symptoms of alcohol withdrawal after trying to self taper her drinking. States she was taking naltrexone with good effect but thought she did not needed anymore. Shortly thereafter she began drinking again and her attempt at wean failed. In the emergency room she has responded well to p.o. phenobarbital 1. Alcohol withdrawal... doing well with protocol - phenobarb protocol - Ativan p.r.n. breakthrough; Zofran for nausea - CIWA protocol - addiction medicine consult 2.Sigmoid diverticulitis - IV Zosyn - loperamide for diarrhea 3.Alcoholic hepatitis - mild improvement in parameters - trend LFTs full code pneumatics Will required hospitalization to complete phenobarb protocol with IV Ativan back up; high risk for outpatient failure. Quality Stroke Does the patient have a stroke diagnosis?: No VTE Prior VTE?: No VTE Risk Level:: Medical - moderate - high VTE Device Contraindication: N/A - Device Ordered VTE Drug Contraindication: Treatment Not Indicated
[2021-07-31] MEDS: ondansetron HCL 4 MG/2 ML VIAL IVPUSH (20:51)
[2021-08-01 03:14] VITALS: BP 98/69; PULSE 75; RESP 16; TEMP 36.6; O2SAT 97
[2021-08-01] MEDS: Piperacillin Sodium/Tazobactam 3.375 GM in 0.9 % Sodium Chloride 50 ML IV ×4 (04:49→22:03)
[2021-08-01] MEDS: 0.9 % Sodium Chloride Flush 3 ML SYRINGE IVFLUSH ×3 (04:50→16:49)
[2021-08-01 06:48] LABS: MANUAL DIFF FLAG NO
[2021-08-01 06:52] LABS: Basophils Absolute Auto 0.1 X10*3/uL (0.0-0.2); Basophils Percent Auto 1.1 % (0-2); Eosinophils Absolute Auto 0.3 X10*3/uL (0.0-0.4); Eosinophils Percent Auto 6.6 % (0-4); Hematocrit 31.7 % (37.0-47.0); Hemoglobin 10.7 g/dl (12.0-16.0); Imm Gran Abs Auto 0.02 X10*3/uL (0.00-0.03); Imm Gran Pct Auto 0.4 % (0.0-0.4); Lymphocytes Absolute Auto 1.5 X10*3/uL (1.2-4.9); Lymphocytes Percent Auto 32.6 % (20-40); Mean Corpuscular HGB Conc 33.8 g/dl (31.0-35.0); Mean Corpuscular Hemoglobin 31.8 pg (27.0-33.0); Mean Corpuscular Volume 94.1 fL (80.0-98.0); Mean Platelet Volume 9.4 fL (9.4-12.3); Monocytes Absolute Auto 0.7 X10*3/uL (0.1-1.2); Monocytes Percent Auto 14.8 % (2-11); Neutrophils Absolute Auto 2.1 x10*3/uL (2.0-8.3); Neutrophils Percent Auto 44.5 % (45-73); Platelet Count 268 X10*3/uL (160-400); Red Blood Count 3.37 X10*6/uL (4.20-5.50); Red Cell Distribution Width 17.2 % (11.0-16.0); White Blood Count 4.7 X10*3/uL (4.8-10.8)
[2021-08-01 07:25] LABS: Alanine Aminotransferase 72 U/L (0-31); Albumin Level 3.2 g/dL (3.5-5.0); Alkaline Phosphatase 101 U/L (39-117); Anion Gap 13 (12-20); Aspartate Amino Transferase 116 U/L (5-31); Bilirubin Total 0.9 mg/dL (0.0-1.0); Blood Urea Nitrogen 3 mg/dL (9-16); Calcium 8.6 mg/dL (8.4-10.2); Carbon Dioxide 27 mmol/L (22-29); Chloride 100 mmol/L (96-108); Creatinine Clr Calc Pharmacy 96.7; Estimated Glomerular Filt Rate > 60; Glucose Fasting 92 mg/dL (60-99); Potassium 3.3 mmol/L (3.3-5.1); Sodium 137 mmol/L (135-145); Total Protein 5.7 g/dL (6.5-8.0)
[2021-08-01 07:49] VITALS: BP 105/79; PULSE 88; RESP 17; TEMP 36.6; O2SAT 97
[2021-08-01] MEDS: Naltrexone HCl 50 MG TABLET PO (09:17)
[2021-08-01] MEDS: Folic Acid 1 MG TABLET PO (09:17)
[2021-08-01] MEDS: PHENobarbitaL 15 MG TABLET PO ×2 (09:17→21:39)
[2021-08-01] MEDS: Thiamine HCL 100 MG TABLET PO (09:17)
[2021-08-01] MEDS: Sertraline HCL 25 MG TABLET PO (09:17)
--- NOTE | 2021-08-01 10:08 | P.PNIM_ITS ---
Subjective Subjective Date of Service: 08/01/21 Interval History: still with mild withdrawal symptoms; abdomen improving diarrhea improved and Review of Systems Denies chest pain Denies shortness of breath Denies nausea vomiting diarrhea Denies fever chills Physical Exam Vital Signs: Vital Signs: Last Vital Signs Temp 97.8 F 08/01/21 07:49 Pulse 88 08/01/21 07:49 Resp 17 08/01/21 07:49 BP 105/79 08/01/21 07:49 Pulse Ox 97 08/01/21 07:49 O2 Del Method 08/01/21 07:49 O2 Flow Rate 1 07/31/21 03:27 BMI result Body Mass Index 22.2 Const: Other: no acute distress Resp: Other: clear to auscultation bilaterally no rales rhonchi or wheezes Cardio: Other: no S4; positive S1-S2; no S3 murmurs of gallops GI: Other: soft positive bowel sounds x4. mild left lower quadrant tenderness without rebound Neuro: Other: cranial nerves 2-12 grossly intact as tested. Motor is 5/5 all extremities. Sensation intact Extrem: Other: no edema bilaterally Objective Data Active Medications Folic Acid (Folic Acid 1 Mg Tablet) 1 mg PO DAILY [facility] Last Admin: 08/01/21 09:17 Dose: 1 mg Documented By: SVETA Piperacillin Sod/Tazobactam (Sod 3.375 gm/ Sodium Chloride) 50 mls @ 100 mls/hr IV Q6H [facility] Last Infusion: 08/01/21 05:19 Dose: 0 mls/hr Documented By: ALICE Loperamide HCl (Loperamide Hcl 2 Mg Capsule) 2 mg PO Q4H PRN PRN Reason: Diarrhea Naltrexone HCl (Naltrexone Hcl 50 Mg Tablet) 50 mg PO DAILY [facility] Last Admin: 08/01/21 09:17 Dose: 50 mg Documented By: SVETA Ondansetron HCl (Ondansetron Hcl 4 Mg/2 Ml Vial) 4 mg IVPUSH Q4H PRN PRN Reason: Nausea and Vomiting Last Admin: 07/31/21 20:51 Dose: 4 mg Documented By: ALICE Pharmacy Consult (Consult Rx Etoh Phenob Po Dose) 1 each MISCELLANE ONCE PRN; Protocol PRN Reason: Consult order Pharmacy Consult (Consult Rx Perform Med Rec) 1 each MISCELLANE ONCE PRN PRN Reason: Consult order Phenobarbital (Phenobarbital 15 Mg Tablet) 15 mg PO BID [facility] Stop: 08/02/21 21:01 Last Admin: 08/01/21 09:17 Dose: 15 mg Documented By: SVETA Phenobarbital (Phenobarbital 15 Mg Tablet) 15 mg PO DAILY [facility] Stop: 08/04/21 09:01 Sertraline HCl (Sertraline Hcl 25 Mg Tablet) 25 mg PO DAILY [facility] Last Admin: 08/01/21 09:17 Dose: 25 mg Documented By: SVETA Sodium Chloride (0.9 % Sodium Chloride Flush 3 Ml Syringe) 3 ml IVFLUSH QSHIFT [facility] Last Admin: 08/01/21 09:17 Dose: 3 ml Documented By: SVETA Thiamine HCl (Thiamine Hcl 100 Mg Tablet) 100 mg PO DAILY [facility] Last Admin: 08/01/21 09:17 Dose: 100 mg Documented By: SVETA Labs CBC & Chem 7: 08/01/21 06:32 08/01/21 06:32 Labs: Laboratory Results - last 24 hr 08/01/21 08/01/21 06:32 06:32 MCV 94.1 MCH 31.8 MCHC 33.8 RDW 17.2 H Plt Count 268 MPV 9.4 Immature Gran % (Auto) 0.4 Neut % (Auto) 44.5 L Lymph % (Auto) 32.6 [place] % (Auto) 14.8 H Eos % (Auto) 6.6 H Baso % (Auto) 1.1 Lymph # (Auto) 1.5 [place] # (Auto) 0.7 Eos # (Auto) 0.3 Baso # (Auto) 0.1 Abs Immat Gran (auto) 0.02 Absolute Neuts (auto) 2.1 Absolute Nucleated RBC 0.000 Nucleated RBC % (auto) 0.0 Anion Gap 13 Estim Creat Clear Calc 96.7 Estimated GFR > 60 Fasting Glucose 92 Calcium 8.6 Total Bilirubin 0.9 AST 116 H ALT 72 H Alkaline Phosphatase 101 Total Protein 5.7 L Albumin 3.2 L Assessment and Plan (1) Alcohol withdrawal: Status: Acute (2) Diverticulitis: Status: Acute (3) Transaminitis: Status: Acute Plan 41-year-old female with longstanding history of alcohol abuse presents to the emergency room with symptoms of alcohol withdrawal after trying to self taper her drinking. States she was taking naltrexone with good effect but thought she did not needed anymore. Shortly thereafter she began drinking again and her attempt at wean failed. In the emergency room she has responded well to p.o. phenobarbital 1. Alcohol withdrawal... doing well with protocol - phenobarb protocol - Ativan p.r.n. breakthrough; Zofran for nausea - [facility]WA protocol - addiction medicine consult 2.Sigmoid diverticulitis... improved - IV Zosyn - loperamide for diarrhea - advance diet 3.Alcoholic hepatitis - mild improvement in parameters - trend LFTs full code pneumatics Will required hospitalization to complete phenobarb protocol with IV Ativan back up; high risk for outpatient failure. Quality Stroke Does the patient have a stroke diagnosis?: No VTE Prior VTE?: No VTE Risk Level:: Medical - moderate - high VTE Device Contraindication: N/A - Device Ordered VTE Drug Contraindication: Treatment Not Indicated
[2021-08-01 11:50] VITALS: BP 133/90; PULSE 83; RESP 16; TEMP 36.6; O2SAT 98
[2021-08-01] MEDS: Loperamide HCl 2 MG CAPSULE PO ×2 (12:56→17:39)
[2021-08-01] MEDS: Acetaminophen 325 MG TABLET 650 MG PO (13:33)
[2021-08-01] MEDS: ondansetron HCL 4 MG/2 ML VIAL IVPUSH ×2 (13:35→17:39)
[2021-08-01 16:00] VITALS: BP 97/57; PULSE 78; RESP 14; TEMP 37.2; O2SAT 96
[2021-08-01 19:38] VITALS: BP 109/74; PULSE 69; RESP 14; TEMP 36.7; O2SAT 97
[2021-08-01 23:46] VITALS: BP 98/58; PULSE 65; RESP 16; TEMP 36.9; O2SAT 97
[2021-08-02] MEDS: 0.9 % Sodium Chloride Flush 3 ML SYRINGE IVFLUSH ×3 (00:07→16:21)
[2021-08-02 03:57] VITALS: BP 116/78; PULSE 98; RESP 14; TEMP 36.6; O2SAT 96
[2021-08-02] MEDS: Piperacillin Sodium/Tazobactam 3.375 GM in 0.9 % Sodium Chloride 50 ML IV ×2 (05:17→09:15)
[2021-08-02 07:02] LABS: MANUAL DIFF FLAG NO
[2021-08-02 07:16] LABS: Basophils Percent Auto 0.9 % (0-2); Eosinophils Absolute Auto 0.3 X10*3/uL (0.0-0.4); Eosinophils Percent Auto 6.2 % (0-4); Hematocrit 33.3 % (37.0-47.0); Hemoglobin 11.4 g/dl (12.0-16.0); Imm Gran Abs Auto 0.02 X10*3/uL (0.00-0.03); Imm Gran Pct Auto 0.5 % (0.0-0.4); Lymphocytes Absolute Auto 1.3 X10*3/uL (1.2-4.9); Lymphocytes Percent Auto 30.5 % (20-40); Mean Corpuscular HGB Conc 34.2 g/dl (31.0-35.0); Mean Corpuscular Hemoglobin 32.8 pg (27.0-33.0); Mean Corpuscular Volume 95.7 fL (80.0-98.0); Mean Platelet Volume 9.8 fL (9.4-12.3); Monocytes Absolute Auto 0.7 X10*3/uL (0.1-1.2); Monocytes Percent Auto 15.9 % (2-11); Platelet Count 268 X10*3/uL (160-400); Red Blood Count 3.48 X10*6/uL (4.20-5.50); Red Cell Distribution Width 17.2 % (11.0-16.0); White Blood Count 4.3 X10*3/uL (4.8-10.8)
[2021-08-02 07:30] LABS: Alanine Aminotransferase 63 U/L (0-31); Albumin Level 3.3 g/dL (3.5-5.0); Alkaline Phosphatase 94 U/L (39-117); Anion Gap 12 (12-20); Aspartate Amino Transferase 82 U/L (5-31); Blood Urea Nitrogen 4 mg/dL (9-16); Calcium 8.8 mg/dL (8.4-10.2); Carbon Dioxide 27 mmol/L (22-29); Chloride 101 mmol/L (96-108); Estimated Glomerular Filt Rate > 60; Glucose Fasting 134 mg/dL (60-99); Potassium 3.5 mmol/L (3.3-5.1); Sodium 136 mmol/L (135-145)
[2021-08-02 08:00] VITALS: BP 91/61; PULSE 83; RESP 18; TEMP 36.7; O2SAT 99
[2021-08-02] MEDS: Naltrexone HCl 50 MG TABLET PO (09:14)
[2021-08-02] MEDS: Thiamine HCL 100 MG TABLET PO (09:14)
[2021-08-02] MEDS: Folic Acid 1 MG TABLET PO (09:14)
[2021-08-02] MEDS: PHENobarbitaL 15 MG TABLET PO ×2 (09:15→20:38)
[2021-08-02] MEDS: Sertraline HCL 25 MG TABLET PO (09:15)
--- NOTE | 2021-08-02 10:23 | P.PNIM_ITS ---
Subjective Subjective Date of Service: 08/02/21 Interval History: still feels a little shaky . Abdominal pain improved. . . Diarrhea lessened Review of Systems Denies chest pain Denies shortness of breath Denies nausea vomiting diarrhea Denies fever chills Physical Exam Vital Signs: Vital Signs: Last Vital Signs Temp 98.1 F 08/02/21 08:00 Pulse 83 08/02/21 08:00 Resp 18 08/02/21 08:00 BP 91/61 08/02/21 08:00 Pulse Ox 99 08/02/21 08:00 O2 Del Method 08/02/21 08:00 O2 Flow Rate 1 07/31/21 03:27 BMI result Body Mass Index 22.2 Const: Other: no acute distress Resp: Other: clear to auscultation bilaterally no rales rhonchi or wheezes Cardio: Other: no S4; positive S1-S2; no S3 murmurs of gallops GI: Other: soft positive bowel sounds x4. mild left lower quadrant tenderness resolved Neuro: Other: cranial nerves 2-12 grossly intact as tested. Motor is 5/5 all extremities. Sensation intact Extrem: Other: no edema bilaterally Objective Data Active Medications Acetaminophen (Acetaminophen 325 Mg Tablet) 650 mg PO Q4H PRN PRN Reason: Headache Last Admin: 08/01/21 13:33 Dose: 650 mg Documented By: SVETA Amoxicillin/Clavulanate Potassium (Amoxicillin/Potassium Clav 875 Mg Tablet) 875 mg PO Q12H [facility] Folic Acid (Folic Acid 1 Mg Tablet) 1 mg PO DAILY [facility] Last Admin: 08/02/21 09:14 Dose: 1 mg Documented By: JEWEL Loperamide HCl (Loperamide Hcl 2 Mg Capsule) 2 mg PO Q4H PRN PRN Reason: Diarrhea Last Admin: 08/01/21 17:39 Dose: 2 mg Documented By: ADELAIDA Naltrexone HCl (Naltrexone Hcl 50 Mg Tablet) 50 mg PO DAILY [facility] Last Admin: 08/02/21 09:14 Dose: 50 mg Documented By: JEWEL Ondansetron HCl (Ondansetron Hcl 4 Mg/2 Ml Vial) 4 mg IVPUSH Q4H PRN PRN Reason: Nausea and Vomiting Last Admin: 08/01/21 17:39 Dose: 4 mg Documented By: HO.COLOJ Pharmacy Consult (Consult Rx Etoh Phenob Po Dose) 1 each MISCELLANE ONCE PRN; Protocol PRN Reason: Consult order Pharmacy Consult (Consult Rx Perform Med Rec) 1 each MISCELLANE ONCE PRN PRN Reason: Consult order Phenobarbital (Phenobarbital 15 Mg Tablet) 15 mg PO BID [facility] Stop: 08/02/21 21:01 Last Admin: 08/02/21 09:15 Dose: 15 mg Documented By: JEWEL Phenobarbital (Phenobarbital 15 Mg Tablet) 15 mg PO DAILY [facility] Stop: 08/04/21 09:01 Sertraline HCl (Sertraline Hcl 25 Mg Tablet) 25 mg PO DAILY [facility] Last Admin: 08/02/21 09:15 Dose: 25 mg Documented By: JEWEL Sodium Chloride (0.9 % Sodium Chloride Flush 3 Ml Syringe) 3 ml IVFLUSH QSHIFT [facility] Last Admin: 08/02/21 09:15 Dose: 3 ml Documented By: JEWEL Thiamine HCl (Thiamine Hcl 100 Mg Tablet) 100 mg PO DAILY [facility] Last Admin: 08/02/21 09:14 Dose: 100 mg Documented By: JEWEL Labs CBC & Chem 7: 08/02/21 06:42 08/02/21 06:42 Labs: Laboratory Results - last 24 hr 08/02/21 08/02/21 06:42 06:42 MCV 95.7 MCH 32.8 MCHC 34.2 RDW 17.2 H Plt Count 268 MPV 9.8 Immature Gran % (Auto) 0.5 H Neut % (Auto) 46.0 Lymph % (Auto) 30.5 [place] % (Auto) 15.9 H Eos % (Auto) 6.2 H Baso % (Auto) 0.9 Lymph # (Auto) 1.3 [place] # (Auto) 0.7 Eos # (Auto) 0.3 Baso # (Auto) 0.0 Abs Immat Gran (auto) 0.02 Absolute Neuts (auto) 2.0 Absolute Nucleated RBC 0.000 Nucleated RBC % (auto) 0.0 Anion Gap 12 Estim Creat Clear Calc 100.0 Estimated GFR > 60 Fasting Glucose 134 H Calcium 8.8 Total Bilirubin 1.0 AST 82 H ALT 63 H Alkaline Phosphatase 94 Total Protein 6.0 L Albumin 3.3 L Assessment and Plan (1) Alcohol withdrawal: Status: Acute (2) Diverticulitis: Status: Acute (3) Transaminitis: Status: Acute Plan 41-year-old female with longstanding history of alcohol abuse presents to the emergency room with symptoms of alcohol withdrawal after trying to self taper her drinking. States she was taking naltrexone with good effect but thought she did not needed anymore. Shortly thereafter she began drinking again and her attempt at wean failed. In the emergency room she has responded well to p.o. phenobarbital 1. Alcohol withdrawal... doing well with protocol - phenobarb protocol.. complete - Ativan p.r.n. breakthrough; Zofran for nausea - [facility]WA protocol - addiction medicine consult 2.Sigmoid diverticulitis... improved - switch to Augmentin - loperamide for diarrhea - advance diet 3.Alcoholic hepatitis - mild improvement in parameters - trend LFTs full code pneumatics Will required hospitalization to complete phenobarb protocol with IV Ativan back up; high risk for outpatient failure. Quality Stroke Does the patient have a stroke diagnosis?: No VTE Prior VTE?: No VTE Risk Level:: Medical - moderate - high VTE Device Contraindication: N/A - Device Ordered VTE Drug Contraindication: Treatment Not Indicated
[2021-08-02 12:00] VITALS: BP 107/81; PULSE 76; RESP 17; TEMP 36.8; O2SAT 98
[2021-08-02] MEDS: Amoxicillin/Potassium Clav 875 MG TABLET PO ×2 (12:12→22:54)
[2021-08-02] MEDS: Loperamide HCl 2 MG CAPSULE PO (12:13)
[2021-08-02 15:38] VITALS: BP 103/70; PULSE 73; RESP 18; TEMP 36.6; O2SAT 98
--- NOTE | 2021-08-02 15:51 | HO.ADDICT_ITS ---
History of Present Illness Date of Service: 08/02/2021 Chief Complaint: Alcohol withdrawal Reason for Consult: Alcohol use disorder-eval and treat rec Requesting physician: Jean Mauro Discussed with referring provider: Yes Sources of Information: patient interviewed and chart reviewed HPI Narrative: Patient is a 41 year old female with AUD currently medically admitted with diverticulitis and alcohol withdrawal. Consult requested to review treatment options, including long acting naltrexone as patient has been taking PO Nlatrexone. Patient seen in room 377. Awake, alert, pleasant and engaged in interview. She reports long history of AUD starting in late teens. Longest period in recovery 9 months--she has many periods of drinking on and off . She report st hat over the last 3 years her drinking worsened resulting in several negative outcomes including loss of relationships, employment and license. Several admission to ATS and mutual support groups. PO naltrexone which she found helpful, however felt that her drinking was mental so she stopped medication and soon after resumed drinking. Prior to admission drinking at least 10 nips per day. Denies any other substance use Denies any history of seizures. Daily tremors when not drinking. Family history of AUD (father) Lives alone, and not employed at this time. Minimal social supports. Reviewed history, identifies depression related to circumstances. Prescribes zoloft 25mg which she does not take consistently (when drinking). Not connected to providers--recently completed [facility] which she found to be beneficial. Review of Systems Constitutional: Reports as per HPI and Reports no additional constitutional complaints Diagnostics Vital Signs (24Hr): Vital Signs - 24 hr 08/01/21 16:00 08/01/21 19:38 08/01/21 23:46 Temperature 99.0 F 98.1 F 98.4 F Pulse Rate 78 69 65 Respiratory Rate 14 14 16 Blood Pressure 97/57 L 109/74 98/58 L Pulse Oximetry 96 97 97 Oxygen Delivery Method Room Air Room Air Room Air 08/02/21 03:57 08/02/21 08:00 08/02/21 12:00 Temperature 97.8 F 98.1 F 98.2 F Pulse Rate 98 83 76 Respiratory Rate 14 18 17 Blood Pressure 116/78 91/61 107/81 Pulse Oximetry 96 99 98 Oxygen Delivery Method Room Air Room Air Room Air 08/02/21 15:38 Temperature 98 F Pulse Rate 73 Respiratory Rate 18 Blood Pressure 103/70 Pulse Oximetry 98 Oxygen Delivery Method Room Air BMI result Body Mass Index 22.2 Labs Results: 08/02/21 06:42 08/02/21 06:42 Labs: Laboratory Results - last 48 hr 08/01/21 08/01/21 08/02/21 06:32 06:32 06:42 WBC 4.7 L 4.3 L RBC 3.37 L 3.48 L Hgb 10.7 L 11.4 L Hct 31.7 L 33.3 L MCV 94.1 95.7 MCH 31.8 32.8 MCHC 33.8 34.2 RDW 17.2 H 17.2 H Plt Count 268 268 MPV 9.4 9.8 Immature Gran % (Auto) 0.4 0.5 H Neut % (Auto) 44.5 L 46.0 Lymph % (Auto) 32.6 30.5 [place] % (Auto) 14.8 H 15.9 H Eos % (Auto) 6.6 H 6.2 H Baso % (Auto) 1.1 0.9 Lymph # (Auto) 1.5 1.3 [place] # (Auto) 0.7 0.7 Eos # (Auto) 0.3 0.3 Baso # (Auto) 0.1 0.0 Abs Immat Gran (auto) 0.02 0.02 Absolute Neuts (auto) 2.1 2.0 Absolute Nucleated RBC 0.000 0.000 Nucleated RBC % (auto) 0.0 0.0 Sodium 137 Potassium 3.3 Chloride 100 Carbon Dioxide 27 Anion Gap 13 BUN 3 L Creatinine 0.62 Estim Creat Clear Calc 96.7 Estimated GFR > 60 Fasting Glucose 92 Calcium 8.6 Total Bilirubin 0.9 AST 116 H ALT 72 H Alkaline Phosphatase 101 Total Protein 5.7 L Albumin 3.2 L 08/02/21 06:42 WBC RBC Hgb Hct MCV MCH MCHC RDW Plt Count MPV Immature Gran % (Auto) Neut % (Auto) Lymph % (Auto) [place] % (Auto) Eos % (Auto) Baso % (Auto) Lymph # (Auto) [place] # (Auto) Eos # (Auto) Baso # (Auto) Abs Immat Gran (auto) Absolute Neuts (auto) Absolute Nucleated RBC Nucleated RBC % (auto) Sodium 136 Potassium 3.5 Chloride 101 Carbon Dioxide 27 Anion Gap 12 BUN 4 L Creatinine 0.60 Estim Creat Clear Calc 100.0 Estimated GFR > 60 Fasting Glucose 134 H Calcium 8.8 Total Bilirubin 1.0 AST 82 H ALT 63 H Alkaline Phosphatase 94 Total Protein 6.0 L Albumin 3.3 L Imaging Radiology Impressions: ITS Impressions Abdomen/Pelvis CT 07/30/21 15:03 IMPRESSION: Question mild diverticulitis or colitis of the sigmoid colon. 1.5 cm probable complex hyperdense cysts in the left kidney. Enlarged fatty liver. IUD in the uterus in satisfactory position. Fleischner guidelines were followed. Mental Status Exam Mental Status Exam Patient Appearance: Well Grooomed and Appropriate Level of Consciousness: Awake and Appropriate Patient Behavior: Appropriate Affect Description: Sad Judgement: Fair Medications Medications Current Medications Acetaminophen (Acetaminophen 325 Mg Tablet) 650 mg PO Q4H PRN PRN Reason: Headache Last Admin: 08/01/21 13:33 Dose: 650 mg Amoxicillin/Clavulanate Potassium (Amoxicillin/Potassium Clav 875 Mg Tablet) 875 mg PO Q12H [facility] Last Admin: 08/02/21 12:12 Dose: 875 mg Folic Acid (Folic Acid 1 Mg Tablet) 1 mg PO DAILY [facility] Last Admin: 08/02/21 09:14 Dose: 1 mg Loperamide HCl (Loperamide Hcl 2 Mg Capsule) 2 mg PO Q4H PRN PRN Reason: Diarrhea Last Admin: 08/02/21 12:13 Dose: 2 mg Naltrexone HCl (Naltrexone Hcl 50 Mg Tablet) 50 mg PO DAILY [facility] Last Admin: 08/02/21 09:14 Dose: 50 mg Ondansetron HCl (Ondansetron Hcl 4 Mg/2 Ml Vial) 4 mg IVPUSH Q4H PRN PRN Reason: Nausea and Vomiting Last Admin: 08/01/21 17:39 Dose: 4 mg Pharmacy Consult (Consult Rx Etoh Phenob Po Dose) 1 each MISCELLANE ONCE PRN; Protocol PRN Reason: Consult order Pharmacy Consult (Consult Rx Perform Med Rec) 1 each MISCELLANE ONCE PRN PRN Reason: Consult order Phenobarbital (Phenobarbital 15 Mg Tablet) 15 mg PO BID [facility] Stop: 08/02/21 21:01 Last Admin: 08/02/21 09:15 Dose: 15 mg Phenobarbital (Phenobarbital 15 Mg Tablet) 15 mg PO DAILY [facility] Stop: 08/04/21 09:01 Sertraline HCl (Sertraline Hcl 25 Mg Tablet) 25 mg PO DAILY [facility] Last Admin: 08/02/21 09:15 Dose: 25 mg Sodium Chloride (0.9 % Sodium Chloride Flush 3 Ml Syringe) 3 ml IVFLUSH QSHIFT [facility] Last Admin: 08/02/21 09:15 Dose: 3 ml Thiamine HCl (Thiamine Hcl 100 Mg Tablet) 100 mg PO DAILY [facility] Last Admin: 08/02/21 09:14 Dose: 100 mg Allergies Allergies Allergy/AdvReac Type Severity Reaction Status Date / Time Sulfa (Sulfonamide Allergy Mild RASH Verified 07/29/21 10:57 Antibiotics) [SULFA (SULFONAMIDE ANTIBIOTICS)] magnesium AdvReac Diarrhea Verified 07/29/21 10:58 Assessment & Plan Assessment & Plan (1) Alcohol use disorder, severe, dependence: Status: Acute Code(s): F10.20 - Alcohol dependence, uncomplicated Assessment and Plan: * already receiving naltrexone. would like to transition to long acting--will connect with [facility] * open to meeting with technology coach this evening to learn more about other recovery supports * increasing sertraline to 50mg QD * discussed with attending provider and RSRN I spent ___45___ minutes with the patient and/or on the patient floor today, greater than?50% of which was spent counseling/coordinating care. [facility] Past Medical History Medical History (Updated 08/02/21 @ 16:11 by Kerrie Mulligan CNP) Alcohol abuse Alcohol abuse Alcohol use disorder, mild, abuse Anxiety Family History Family History Father Medical history unknown Mother Medical history unknown Paternal Grandfather Cancer Sister Epilepsy Daughter In good health Son In good health Surgical History Surgical History No pertinent past surgical history Social History Social History Household Members: None Housing: Apartment Do you presently have visiting nurse or other home services: No Alcohol intake: current Alcohol intake frequency: 3 or more drinks per day A lcohol type: hard liquor Patient Tobacco Use Status: Former Tobacco user Tobacco use type: Cigarette e-Cigarette/Vaping Use: Never Used Advance Directives Date on File: 01/25/21 service: No Current occupational status: unemployed
[2021-08-02 19:38] VITALS: BP 102/66; PULSE 78; RESP 20; TEMP 36.4; O2SAT 97
--- NOTE | 2021-08-02 21:02 | MHC.RECOVSUP ---
? Reason for consult:Recovery Support o Current location: [facility] o Identified substance use concern:ETOH - Withdrawal - Support ? Intervention: o MAT started or to be started o Community resources provided o Harm reduction discussion ? Plan: o Referral to [facility] o Follow up tomorrow o Patient to follow up with [facility] after discharge ? Additional information: Met with patient and discussed a Care Taker, referred her to [facility], and the [facility]. She' on Naltrexone, but wants to take Vivitrol, patient to call the [facility] tomorrow.
[2021-08-02 23:41] VITALS: BP 98/76; PULSE 86; RESP 18; TEMP 37.2; O2SAT 96
[2021-08-03] VITALS (7 sets, daily range): BP systolic 106–148; BP diastolic 66–85; PULSE 78–94; RESP 14–20; TEMP 35.9–37.4; O2SAT 96–99
[2021-08-03] MEDS: 0.9 % Sodium Chloride Flush 3 ML SYRINGE IVFLUSH ×4 (00:02→23:57)
[2021-08-03] MEDS: Naltrexone HCl 50 MG TABLET PO (07:43)
[2021-08-03] MEDS: PHENobarbitaL 15 MG TABLET PO (07:43)
[2021-08-03] MEDS: Sertraline HCL 50 MG TABLET PO (07:43)
[2021-08-03] MEDS: Thiamine HCL 100 MG TABLET PO (07:44)
[2021-08-03] MEDS: Folic Acid 1 MG TABLET PO (07:44)
[2021-08-03] MEDS: Loperamide HCl 2 MG CAPSULE PO (08:17)
[2021-08-03] MEDS: Amoxicillin/Potassium Clav 875 MG TABLET PO (11:11)
[2021-08-03] MEDS: ondansetron HCL 4 MG/2 ML VIAL IVPUSH (11:26)
[2021-08-03] MEDS: metroNIDAZOLE 500 MG TABLET PO (15:22)
[2021-08-03] MEDS: levoFLOXacin 500 MG TABLET PO (15:22)
--- NOTE | 2021-08-03 15:24 | HO.PM.IMPN ---
Subjective Subjective Date of Service: 08/03/21 Interval History: diarrhea, alcohol withdrawal Review of Systems patient still continued to have diarrhea, 4-5 episode liquidy, some cramp in the left lower abdomin. Physical Exam Vital Signs: Vital Signs: Last Vital Signs Temp 96.8 F 08/03/21 11:33 Pulse 94 08/03/21 11:33 Resp 18 08/03/21 11:33 BP 110/85 08/03/21 11:33 Pulse Ox 99 08/03/21 11:33 O2 Del Method 08/03/21 11:33 O2 Flow Rate 1 07/31/21 03:27 BMI result Body Mass Index 22.2 Appearance: Alert.? Oriented X3.? not in distress.? Eyes: Pupils equal, round and reactive to light.? Sclera nonicteric.? ENT: Pharynx normal.? Moist mucous membranes. cvs: rrr, [id number] , no murmur res: clear to auscultation ,no rhonchii or wheezing abd: no rebound or guarding ,nt, bs present. ext pulses present , no cyanosis ,Gait well balanced well coordinated. neuro: axo3 , nonfocal. Objective Data Active Medications Acetaminophen (Acetaminophen 325 Mg Tablet) 650 mg PO Q4H PRN PRN Reason: Headache Last Admin: 08/01/21 13:33 Dose: 650 mg Documented By: SVETA Folic Acid (Folic Acid 1 Mg Tablet) 1 mg PO DAILY [facility] Last Admin: 08/03/21 07:44 Dose: 1 mg Documented By: JEWEL Levofloxacin (Levofloxacin 500 Mg Tablet) 500 mg PO Q24H [facility] Last Admin: 08/03/21 15:22 Dose: 500 mg Documented By: ADRIAN Loperamide HCl (Loperamide Hcl 2 Mg Capsule) 2 mg PO Q4H PRN PRN Reason: Diarrhea Last Admin: 08/03/21 08:17 Dose: 2 mg Documented By: JEWEL Metronidazole (Metronidazole 500 Mg Tablet) 500 mg PO Q12H [facility] Last Admin: 08/03/21 15:22 Dose: 500 mg Documented By: ADRIAN Naltrexone HCl (Naltrexone Hcl 50 Mg Tablet) 50 mg PO DAILY [facility] Last Admin: 08/03/21 07:43 Dose: 50 mg Documented By: JEWEL Ondansetron HCl (Ondansetron Hcl 4 Mg/2 Ml Vial) 4 mg IVPUSH Q4H PRN PRN Reason: Nausea and Vomiting Last Admin: 08/03/21 11:26 Dose: 4 mg Documented By: JEWEL Pharmacy Consult (Consult Rx Etoh Phenob Po Dose) 1 each MISCELLANE ONCE PRN; Protocol PRN Reason: Consult order Pharmacy Consult (Consult Rx Perform Med Rec) 1 each MISCELLANE ONCE PRN PRN Reason: Consult order Phenobarbital (Phenobarbital 15 Mg Tablet) 15 mg PO DAILY [facility] Stop: 08/04/21 09:01 Last Admin: 08/03/21 07:43 Dose: 15 mg Documented By: JEWEL Sertraline HCl (Sertraline Hcl 50 Mg Tablet) 50 mg PO DAILY [facility] Last Admin: 08/03/21 07:43 Dose: 50 mg Documented By: JEWEL Sodium Chloride (0.9 % Sodium Chloride Flush 3 Ml Syringe) 3 ml IVFLUSH QSHIFT [facility] Last Admin: 08/03/21 15:22 Dose: 3 ml Documented By: ADRIAN Thiamine HCl (Thiamine Hcl 100 Mg Tablet) 100 mg PO DAILY [facility] Last Admin: 08/03/21 07:44 Dose: 100 mg Documented By: JEWEL Labs CBC & Chem 7: 08/02/21 06:42 08/02/21 06:42 Assessment and Plan (1) Diverticulitis: Status: Acute (2) Alcohol use disorder, severe, dependence: Status: Acute Plan 41-year-old female with longstanding history of alcohol abuse presents to the emergency room with symptoms of alcohol withdrawal after trying to self taper her drinking.? States she was taking naltrexone with good effect but thought she did not needed anymore.? Shortly thereafter she began drinking again and her attempt at wean failed.? In the emergency room she has responded well to p.o. phenobarbital 1. Alcohol withdrawal... doing well with protocol - phenobarb protocol.. complete - Ativan p.r.n. breakthrough; Zofran for nausea - CIWA protocol - addiction medicine consult 2.Sigmoid diverticulitis... improved -? switch to Augmentin - loperamide for diarrhea - advance diet ?3.Alcoholic? hepatitis - mild improvement in parameters - trend LFTs 4. diarrhae : 4-5 episode . stool studies change antibiotics ?Will required? hospitalization to complete phenobarb protocol with IV Ativan back up; high risk for outpatient failure.? Quality Stroke Does the patient have a stroke diagnosis?: No VTE Prior VTE?: No VTE Risk Level:: Medical - moderate - high VTE Device Contraindication: N/A - Device Ordered VTE Drug Contraindication: Treatment Not Indicated
[2021-08-03 17:21] LABS: Leukocytes Stool Qualitative NEGATIVE (NEGATIVE)
[2021-08-03 20:09] LABS: CDiff Gene PCR NEGATIVE (Negative)
[2021-08-04 03:19] VITALS: BP 106/74; PULSE 86; RESP 18; TEMP 36.8; O2SAT 99
[2021-08-04] MEDS: metroNIDAZOLE 500 MG TABLET PO ×2 (04:40→13:54)
[2021-08-04 08:00] VITALS: BP 100/68; PULSE 81; RESP 18; TEMP 36.6; O2SAT 98
[2021-08-04] MEDS: Naltrexone HCl 50 MG TABLET PO (08:03)
[2021-08-04] MEDS: Thiamine HCL 100 MG TABLET PO (08:03)
[2021-08-04] MEDS: Folic Acid 1 MG TABLET PO (08:03)
[2021-08-04] MEDS: 0.9 % Sodium Chloride Flush 3 ML SYRINGE IVFLUSH ×3 (08:03→23:33)
[2021-08-04] MEDS: Sertraline HCL 50 MG TABLET PO (08:03)
[2021-08-04] MEDS: PHENobarbitaL 15 MG TABLET PO (08:03)
[2021-08-04] MEDS: Loperamide HCl 2 MG CAPSULE PO (11:13)
[2021-08-04 11:32] VITALS: BP 101/69; PULSE 79; RESP 18; TEMP 36.4; O2SAT 98
[2021-08-04] MEDS: ondansetron HCL 4 MG/2 ML VIAL IVPUSH (11:57)
--- NOTE | 2021-08-04 12:13 | HO.PM.IMPN ---
Subjective Subjective Date of Service: 08/04/21 Interval History: diarrhea, alcohol withdrawal Review of Systems Diarrhea only slight improvement still has left lower quadrant pain, also nausea. No fever or chills. Physical Exam Vital Signs: Vital Signs: Last Vital Signs Temp 97.6 F 08/04/21 11:32 Pulse 79 08/04/21 11:32 Resp 18 08/04/21 11:32 BP 101/69 08/04/21 11:32 Pulse Ox 98 08/04/21 11:32 O2 Del Method 08/04/21 11:32 O2 Flow Rate 1 07/31/21 03:27 BMI result Body Mass Index 22.2 ? Appearance: Alert.? Oriented X3.? not in distress.?. cvs: rrr, [id number] , no murmur res: clear to auscultation ,no rhonchii or wheezing abd: no rebound or guarding ,llq pain, bs present. ext pulses present , no cyanosis . neuro: axo3 , nonfocal. Objective Data Active Medications Acetaminophen (Acetaminophen 325 Mg Tablet) 650 mg PO Q4H PRN PRN Reason: Headache Last Admin: 08/01/21 13:33 Dose: 650 mg Documented By: SVETA Folic Acid (Folic Acid 1 Mg Tablet) 1 mg PO DAILY [facility] Last Admin: 08/04/21 08:03 Dose: 1 mg Documented By: JEWEL Levofloxacin (Levofloxacin 500 Mg Tablet) 500 mg PO Q24H [facility] Last Admin: 08/03/21 15:22 Dose: 500 mg Documented By: ADRIAN Loperamide HCl (Loperamide Hcl 2 Mg Capsule) 2 mg PO Q4H PRN PRN Reason: Diarrhea Last Admin: 08/04/21 11:13 Dose: 2 mg Documented By: JEWEL Metronidazole (Metronidazole 500 Mg Tablet) 500 mg PO Q12H [facility] Last Admin: 08/04/21 04:40 Dose: 500 mg Documented By: JONH Naltrexone HCl (Naltrexone Hcl 50 Mg Tablet) 50 mg PO DAILY [facility] Last Admin: 08/04/21 08:03 Dose: 50 mg Documented By: JEWEL Ondansetron HCl (Ondansetron Hcl 4 Mg/2 Ml Vial) 4 mg IVPUSH Q4H PRN PRN Reason: Nausea and Vomiting Last Admin: 08/04/21 11:57 Dose: 4 mg Documented By: JEWEL Pharmacy Consult (Consult Rx Etoh Phenob Po Dose) 1 each MISCELLANE ONCE PRN; Protocol PRN Reason: Consult order Pharmacy Consult (Consult Rx Perform Med Rec) 1 each MISCELLANE ONCE PRN PRN Reason: Consult order Sertraline HCl (Sertraline Hcl 50 Mg Tablet) 50 mg PO DAILY [facility] Last Admin: 08/04/21 08:03 Dose: 50 mg Documented By: JEWEL Sodium Chloride (0.9 % Sodium Chloride Flush 3 Ml Syringe) 3 ml IVFLUSH QSHIFT [facility] Last Admin: 08/04/21 08:03 Dose: 3 ml Documented By: JEWEL Thiamine HCl (Thiamine Hcl 100 Mg Tablet) 100 mg PO DAILY [facility] Last Admin: 08/04/21 08:03 Dose: 100 mg Documented By: JEWEL Labs CBC & Chem 7: 08/02/21 06:42 08/02/21 06:42 Labs: Laboratory Results - last 24 hr 08/03/21 08/03/21 16:13 16:13 Stool Leukocytes, Qual NEGATIVE C. difficile Tox B Gene NEGATIVE Microbiology Microbiology Results: Microbiology 08/03/21 16:13 Stool Culture - Preliminary Stool Culture in progress. Assessment and Plan (1) Alcohol use disorder, severe, dependence: Status: Acute (2) Diverticulitis: Status: Acute Plan 41-year-old female with longstanding history of alcohol abuse presents to the emergency room with symptoms of alcohol withdrawal after trying to self taper her drinking.? States she was taking naltrexone with good effect but thought she did not needed anymore.? Shortly thereafter she began drinking again and her attempt at wean failed.? In the emergency room she has responded well to p.o. phenobarbital 1. Alcohol withdrawal... doing well with protocol - phenobarb protocol.. complete - Ativan p.r.n. breakthrough; Zofran for nausea - [facility]WA protocol - addiction medicine consult 2.Sigmoid diverticulitis-still symptomatic -? switch to Augmentin - loperamide for diarrhea - advance diet ?3.Alcoholic? hepatitis - mild improvement in parameters - trend LFTs 4. diarrhae : 4-5 episode . stool studies-cdiff and stool wbc neg, stool culture pending change antibiotics inpatient need:phenobarb protocol with IV Ativan back up, diverticuliis /persistent diarrahae on iv antibiotics? Quality Stroke Does the patient have a stroke diagnosis?: No VTE Prior VTE?: No VTE Risk Level:: Medical - moderate - high VTE Device Contraindication: N/A - Device Ordered VTE Drug Contraindication: Treatment Not Indicated
--- NOTE | 2021-08-04 13:14 | MHC.RECOVRN ---
Pt has folllow up appt at the [facility] on 08/12 at 10AM. CM aware.
[2021-08-04] MEDS: levoFLOXacin 500 MG TABLET PO (13:54)
--- NOTE | 2021-08-04 14:10 | MHC.CM.PN ---
PATIENT STILL WITH NAUSEA/VOMITING NO PLAN FOR DC TODAY
[2021-08-04 15:02] VITALS: BP 108/76; PULSE 74; RESP 18; TEMP 36.3; O2SAT 98
[2021-08-04] MEDS: Acetaminophen 325 MG TABLET 650 MG PO (17:32)
[2021-08-04 19:14] VITALS: BP 109/71; PULSE 74; RESP 18; TEMP 36.5; O2SAT 98
[2021-08-04] MEDS: Zolpidem Tartrate 5 MG TABLET PO (22:56)
[2021-08-04 23:23] VITALS: BP 114/84; PULSE 79; RESP 18; TEMP 37.1; O2SAT 97
[2021-08-05 03:18] VITALS: BP 117/78; PULSE 85; RESP 18; TEMP 36.4; O2SAT 97
[2021-08-05] MEDS: metroNIDAZOLE 500 MG TABLET PO ×2 (03:48→14:28)
[2021-08-05 07:20] LABS: Anion Gap 12 (12-20); Blood Urea Nitrogen 3 mg/dL (9-16); Calcium 8.9 mg/dL (8.4-10.2); Carbon Dioxide 26 mmol/L (22-29); Chloride 104 mmol/L (96-108); Creatinine Clr Calc Pharmacy 113.1; Estimated Glomerular Filt Rate > 60; Glucose Random 115 mg/dL (60-115); Potassium 3.8 mmol/L (3.3-5.1); Sodium 138 mmol/L (135-145)
[2021-08-05 08:00] VITALS: BP 100/71; PULSE 78; RESP 18; TEMP 36.8; O2SAT 96
[2021-08-05] MEDS: Sertraline HCL 50 MG TABLET PO (09:37)
[2021-08-05] MEDS: Loperamide HCl 2 MG CAPSULE PO (09:37)
[2021-08-05] MEDS: Folic Acid 1 MG TABLET PO (09:37)
[2021-08-05] MEDS: Naltrexone HCl 50 MG TABLET PO (09:37)
[2021-08-05] MEDS: Thiamine HCL 100 MG TABLET PO (09:37)
[2021-08-05] MEDS: 0.9 % Sodium Chloride Flush 3 ML SYRINGE IVFLUSH (09:37)
--- NOTE | 2021-08-05 11:34 | PM.DS ---
DS: Providers Provider Date of Service: 08/05/21 Date of admission: 07/29/21 13:33 Primary care physician: Ollie Pulliam PA-C Consults: 08/02/21 07:47 Addiction Medicine Routine Consulting Provider: Kerrie Mulligan Reason for consultation: etoh withdraw Has provider been notified: No DS: Diagnosis Discharge Diagnosis (1) Alcohol use disorder, severe, dependence: Status: Acute (2) Diverticulitis: Status: Acute DS: Summary Hospital Course Hospital Course: 41 years old female with history of alcohol abuse and anxiety, patient has been bingeing on drinking alcohol for the past 7 days last drink was last night, patient is concerning of withdrawal symptoms, patient complains of tremulousness, patient also reportedly had visual hallucination last night of seeing spots that is not there but no auditory hallucination.? Patient is complaining of nausea and vomiting. hospital course: Patient was admitted for alcohol withdrawal, elevated LFT, diverticulitis: Patient was started on phenobarb protocol for alcohol withdrawal, elevated LFTs improving possibly related to alcohol use. Also patient was started on IV antibiotic for diverticulitis - seems to be improving still has diarrhea but significantly better than before. tolerating diet, patient is going home with p.o. antibiotics and p.r.n. loperamide. Above management discussed the patient detail length she understand and in agreement with the above plan, monitor LFTs Outpatient in 1 week. Follow-up with PCP. Above management discussed with the patient in detail length she understand and in agreement with the above plan, time spent 50 minutes and 50% time spent on counseling. Significant findings: As above. Procedures performed: None. Treatment and response: As above. Complications: None. Time Spent with Patient Time attestation: Total time spent providing and/or coordinating discharge services: Discharge coordination time: Greater than 30 minutes Quality: Safe Use of Opioids Does Pt have an Active Cancer Diagnosis on the Problem List?: No Quality: Stroke Does the patient have a stroke diagnosis?: No Physical Exam Vital Signs: Vital Signs: Last Vital Signs Temp 98.3 F 08/05/21 08:00 Pulse 78 08/05/21 08:00 Resp 18 08/05/21 08:00 BP 100/71 08/05/21 08:00 Pulse Ox 96 08/05/21 08:00 O2 Del Method 08/05/21 08:00 O2 Flow Rate 1 07/31/21 03:27 BMI result Body Mass Index 22.2 Appearance: Alert.? Oriented X3.? not in distress.?. cvs: rrr, [id number] , no murmur res: clear to auscultation ,no rhonchii or wheezing abd: no rebound or guarding ,llq pain, bs present. ext pulses present , no cyanosis . neuro: axo3 , nonfocal. DS: Data Data Completed and Pending Completed studies during hospitalization [Text1]: Procedures Detoxification Services for Substance Abuse Treatment (06/19/21) Labs on day of discharge: Laboratory Results - last 24 hr 08/05/21 06:15 Sodium 138 Potassium 3.8 Chloride 104 Carbon Dioxide 26 Anion Gap 12 BUN 3 L Creatinine 0.53 Estim Creat Clear Calc 113.1 Estimated GFR > 60 Random Glucose 115 Calcium 8.9 Preliminary micro results at discharge 08/03/21 16:13 Stool Culture - Preliminary Stool Normal so far. Discharge Plan Discharge Patient Disposition: Home, Self-Care Discharge Diagnosis: alcohol withdrawal, elevated LFTs, diverticulitis. Referrals: Ollie Pulliam PA-C [Primary Care Provider] - 1 Week Discharge Medications: New Vivitrol 380 mg suspension,extended rel recon 380 mg IM Q4W Qty: 1 5RF loperamide 2 mg Capsule 2 mg PO Q4H PRN (Reason: Diarrhea) Qty: 10 0RF metronidazole 500 mg Tablet 500 mg PO Q12H Qty: 8 0RF levofloxacin 500 mg Tablet 500 mg PO Q24H Qty: 4 0RF Continued folic acid 1 mg tablet 1 mg PO DAILY 90 Days Qty: 90 1RF thiamine HCl (vitamin B1) [Vitamin B-1] 100 mg tablet 100 mg PO DAILY Qty: 90 0RF sertraline 25 mg Tablet 25 mg PO DAILY melatonin 5 mg Tablet 5 mg PO BEDTIME PRN (Reason: Sleep) naltrexone 50 mg tablet 50 mg PO DAILY Discharge Orders: Discharge Order (Routine); Ordered 08/05/21 Ordered By: Berta Gutiérrez Diet: advance to usual diet Activity on Discharge: As tolerated Stand Alone Forms: Patient Portal Discharge page Care Plan Goals: Patient was admitted for alcohol withdrawal, elevated LFT, diverticulitis: Patient was started on phenobarb protocol for alcohol withdrawal, elevated LFTs improving possibly related to alcohol use. Also patient was started on IV antibiotic for diverticulitis - seems to be improving still has diarrhea but significantly better than before. tolerating diet, patient is going home with p.o. antibiotics and p.r.n. loperamide. Above management discussed the patient detail length she understand and in agreement with the above plan, monitor LFTs Outpatient in 1 week. Follow-up with PCP. Health Concerns: As above. If abdominal pain or size fever or severe diarrhea please got to nearest emergency room. Plan of Treatment: as above. Assessment: as above.
--- NOTE | 2021-08-05 11:45 | MHC.CM.PN ---
PT MEDICALLY CLEARED FOR D/C HOME SELF-CARE, [facility] INTAKE APPT 08/12 AT 10:00AM, PT WILL USE [email or web address] FOR TRANSPORT.
[2021-08-05 11:53] VITALS: BP 102/76; PULSE 83; RESP 18; TEMP 36.5; O2SAT 98
[2021-08-05] MEDS: ondansetron HCL 4 MG/2 ML VIAL IVPUSH (13:35)
[2021-08-05] MEDS: levoFLOXacin 500 MG TABLET PO (14:28)
--- NOTE | 2021-08-05 17:23 | PC.NURSE ---
discharge instructions given to patient by RN Kathleen,discharged via wc
== END 2021-08-05 17:30 | disposition home or self-care (01) | DRG 280 ==
LOC: HO.ED 13:14 → HO.EDOVER 13:39 → HO.S3 07-30 00:30
PROVIDERS: Admitting Provider Hospitalist; Emergency Provider Emergency Medicine; PCP Physician Assistant; Visit Provider Internal Medicine
DX: K70.10 Alcoholic hepatitis without ascites (principal); F10.232 Alcohol dependence with withdrawal with perceptual disturbance; F41.9 Anxiety disorder, unspecified; K57.32 Diverticulitis of large intestine without perforation or abscess without bleeding; Z20.822 Contact with and (suspected) exposure to COVID-19; Z87.891 Personal history of nicotine dependence; Z88.2 Allergy status to sulfonamides; Z88.8 Allergy status to other drugs, medicaments and biological substances; Z79.899 Other long term (current) drug therapy
CPT/HCPCS: 0241U; 36415; 74177; 80048; 80053; 80076; 81003; 82077; 83690; 83735; 85025; 87045; 87046; 87493; 89055; 93005; 96361; 96374; 96375; 99285; J1170; J2060; J2405; J2543; Q9967

== ENCOUNTER 2021-09-11 12:18 | Inpatient (IN) | payer OTHER, SELFPAY ==
--- NOTE | ~2021-09-11 | CT_ITS ---
EXAMINATION: CT ABDOMEN AND PELVIS WITHOUT CONTRAST CLINICAL INFORMATION: Abdominal pain, diarrhea. COMPARISON: CT abdomen/pelvis 07/30/2021. TECHNIQUE: Multidetector volumetric imaging was performed from the superior aspect of the liver through the pubic symphysis. Sagittal and coronal reformatted images were obtained on the technologist's workstation. This CT examination was performed using dose optimization techniques as appropriate, variously including the following: *Automated exposure control *Adjustment of mA and/or kV according to patient size (this includes techniques or standardized protocols for targeted exams where dose is matched to indication/reason for exam; i.e. extremities or head) *Use of iterative reconstruction technique DLP: 422 mGy-cm FINDINGS: LUNG BASES: No focal consolidation or pleural effusion. LIVER, GALLBLADDER, AND BILIARY TREE: Redemonstration of hepatomegaly (21.7 cm craniocaudally) with marked decrease parenchymal attenuation consistent with hepatic steatosis. There are regions of fatty sparing adjacent to the gallbladder and falciform ligament. There are no suspicious focal liver lesions. Hyperattenuating content in the gallbladder, possibly concentrated bile. No cholelithiasis or findings to suggest acute cholecystitis. No biliary ductal dilatation. PANCREAS: Unremarkable. SPLEEN: Small splenule (3:38). ADRENAL GLANDS: Unremarkable. KIDNEYS AND URETERS: An exophytic 1.5 cm, 33 Hounsfield units, lesion in the upper pole of the left kidney is unchanged when compared to a CT from 2017, and on prior CTs with IV contrast it measured up to 37 Hounsfield units, most consistent with a hemorrhagic/proteinaceous cyst, for which no imaging follow-up is recommended. No hydronephrosis or nephrolithiasis. BLADDER: Unremarkable. GASTROINTESTINAL TRACT: Fluid-filled loops of distal small bowel with also air-fluid level in the rectum, suggesting gastroenteritis or diarrhea. The appendix is not visualized, however there are no regional inflammatory changes to suspect acute appendicitis. There is redemonstration of moderate sigmoid diverticulosis with no significant associated fat stranding to suspect acute diverticulitis. Assessment of wall thickening is limited due to underdistention. No evidence of bowel obstruction. ABDOMINAL WALL: No significant hernia is appreciated. LYMPH NODES: No lymphadenopathy by size criteria. VASCULAR: Unremarkable. PELVIC VISCERA: IUD in satisfactory positioning. Simple cyst in the left ovary for which no imaging follow-up is recommended. The right ovary is not well delineated in this examination. OSSEOUS STRUCTURES: No acute or aggressive appearing osseous abnormalities. CT/CT abdomen pelvis wo con IMPRESSION: Fluid-filled loops of small bowel could be seen with gastroenteritis or diarrhea. There is also air-fluid level in the rectum which could be seen with diarrhea. Redemonstration of hepatomegaly and marked hepatic steatosis. Moderate sigmoid diverticulosis but with no significant associated fat stranding to suspect acute diverticulitis.
[2021-09-11 12:36] VITALS: BP 127/99; PULSE 115; RESP 20; TEMP 35.9; O2SAT 93; BMI 20.3
--- NOTE | 2021-09-11 13:03 | ED_ITS ---
HPI - General Adult General Chief complaint: General Medical Stated complaint: Rapid Heartbeat Withdrawal ETOH Time Seen by Provider: 09/11/21 12:53 Source: patient Mode of arrival: ambulatory Limitations: no limitations History of Present Illness HPI narrative: Patient is a 41 year old female presenting to the emergency department today with a rapid heart rate and feeling generally unwell. Patient states that she was sober for 3 months from alcohol and about a month ago, began drinking 7 nips per day. Patient states that her last drink was this morning. Patient denies any dizziness, lightheadedness, abdominal pain, nausea, vomiting, fever, chills, blurry vision, double vision, loss of vision, chest pain, difficulty breathing, shortness of breath, back pain, night sweats, pain with urination, increased urinary frequency, increased urinary urgency, blood in her urine or stool, syncope or a near syncopal episode, recent trauma or falls, bowel incontinence, bladder incontinence, bowel retention, bladder retention, or any other complaints at this time. Onset (ago): hour(s) Severity: mild Severity scale (1-10): 3 Relieving factors: none Exacerbating factors: none Associated symptoms: denies other symptoms Treatments prior to arrival: none Related Data Home Medications Medication Instructions Recorded Confirmed naltrexone 50 mg tablet 50 mg PO DAILY 04/20/21 09/11/21 sertraline 25 mg tablet 50 mg PO DAILY 06/20/21 09/11/21 melatonin 5 mg tablet 5 mg PO BEDTIME PRN Sleep 07/29/21 09/11/21 cholecalciferol (vitamin D3) 25 25 mcg PO DAILY 09/11/21 09/11/21 mcg (1,000 unit) tablet Previous Rx's Medication Instructions Recorded folic acid 1 mg tablet 1 mg PO DAILY 90 days #90 tabs 05/24/21 thiamine HCl (vitamin B1) 100 mg 100 mg PO DAILY #90 tabs 05/24/21 tablet (Vitamin B-1) loperamide 2 mg capsule 2 mg PO Q4H PRN Diarrhea #10 caps 08/05/21 Allergies Allergy/AdvReac Type Severity Reaction Status Date / Time Sulfa (Sulfonamide Allergy Mild RASH Verified 09/11/21 12:40 Antibiotics) [SULFA (SULFONAMIDE ANTIBIOTICS)] magnesium AdvReac Diarrhea Verified 09/11/21 12:40 Review of Systems Constitutional: Constitutional: Reports no additional constitutional complaints, Denies chills, Denies fever(s) and Denies night sweats Eyes: Eyes: Reports no additional eye complaints, Denies blurry vision, Denies change in vision, Denies diplopia, Denies eye discharge, Denies loss of vision and Denies eye pain ENT: Denies dizziness Cardiovascular: Cardiovascular: Reports no additional cardiovascular complain ts, Denies chest pain, Denies lightheadedness, Denies Loss of Consciousness, Reports palpitations and Denies dyspnea Respiratory: Respiratory: Reports no additional respiratory complaints and Denies dyspnea Gastrointestinal: Gastrointestinal: Reports no additional gastrointestinal complaints, Denies abdominal pain, Denies melena, Denies hematochezia, Denies change in bowel habits and Denies change in stool character Genitourinary: Genitourinary: Denies hematuria, Denies urinary frequency, Denies dysuria, Denies urinary incontinence, Denies urinary hesitancy and Denies urinary urgency Musculoskeletal: Musculoskeletal: Reports no additional musculoskeletal complaints, Denies numbness and Denies tingling Neurologic: Denies dizziness, Denies loss of vision, Denies numbness and Denies tingling Psychiatric: Psychiatric: Reports no additional psychiatric complaints Endocrine: Endocrine: Reports no additional endocrine complaints and Reports palpitations Hematologic/Lymphatic: Hematologic/Lymphatic: Reports no additional hematologic/lymphatic complaints Allergic/Immunologic: Allergic/Immunologic: Reports no additional allergic/i mmunologic complaints [facility] Past Medical History Attestation statement: The following information was validated with the patient. Source: old records reviewed Medical History (Updated 09/11/21 @ 16:14 by Kalyn Field NP) Alcohol abuse Anxiety Surgical History No pertinent past surgical history Family History Family History Father Medical history unknown Mother Medical history unknown Paternal Grandfather Cancer Sister Epilepsy Daughter In good health Son In good health Social History Social History Household Members: None Housing: Apartment Do you presently have visiting nurse or other home services: No Alcohol intake: current Alcohol intake frequency: 3 or more drinks per day Alcohol type: hard liquor Patient Tobacco Use Status: Former Tobacco user Tobacco use type: Cigarette e-Cigarette/Vaping Use: Never Used Use of substances other than those prescribed or required for medical reasons: No Advance Directives: Yes Advance Directives on File: Yes Advance Directives Date on File: 01/25/21 service: No Current occupational status: unemployed Physical Exam ED Vital Signs: Vital Signs - 24 hr 09/11/21 12:36 09/11/21 16:07 Temperature 96.6 F L Pulse Rate 115 H 98 Respiratory Rate 20 18 Blood Pressure 127/99 H 125/83 Pulse Oximetry 93 98 Oxygen Delivery Method Room Air Room Air BMI result Body Mass Index 20.3 Const General: cooperative, no acute distress, alert and awake Nutritional Appearance: well nourished Orientation/consciousness: patient oriented x3 Limitations: no limitations HENMT Head: Yes normal to inspection and Yes atraumatic Ears: hearing grossly normal bilaterally and external ears normal General nose exam: Normal external nose present, no nasal discharge noted and no epistaxis Face and sinus: Yes normal facial exam, No abrasion and No laceration Mouth: Normal oral and palatal mucosa present, no drooling and no muffled voice Eyes Other: minimal jaundice Periorbital: periorbital findings normal Eyelids: Yes eyelids normal Conjunctivae: conjunctivae normal Pupils: Equal, round and reactive pupils present EOM: EOMs intact bilaterally Neck Neck: Yes normal visual inspection, Yes full ROM and Yes no lymphadenopathy Chest Chest palpation & inspection: normal inspection of the chest Resp Effort & Inspection: normal respiratory effort and able to speak in complete sentences Auscultation: clear to auscultation bilaterally Cardio Rate: tachycardic Rhythm: regular rhythm GI Inspection: Yes normal to inspection Neuro General: patient oriented x3 and moves all extremities Cranial nerves: Yes Equal, round and reactive pupils present Cognition (Neuro): normal cognition Motor exam (neuro): 5/5 motor strength present throughout Sensory Exam: Normal double simultaneous stimulation for sensation Coordination: [id number] test normal Extrem General: Yes normal to inspection, Yes full ROM and Yes capillary refill normal Psych Appearance: grossly normal Mental Status: mental status grossly normal Affect: normal affect Attitude: cooperative Thought process: Normal thought process present Thought content: Normal thought content present Insight: Good insight present (Psych) Medical Decision Making MDM Narrative Medical decision making narrative: Patient is a 41 year old female presenting to the emergency department today with a racing heart rate and going through alcohol withdrawal. Patient's physical exam showed tachycardia and minimal jaundice of bilateral eyes. Patient's blood work showed hypomagnesemia, hypokalemia, and hyponatremia. I explained my physical exam findings as well as all test results to the patient. I answered all questions asked by the patient. Patient received IV fluids, PO Potassium, IV Potassium, and IV magnesium.I spoke to Dr. Fuentes, who agreed to hospital admission. Patient verbalized agreement and understanding with this treatment plan and admission. Differential Diagnosis Differential Diagnosis: alcohol withdrawal Medical Records Medical records reviewed: Yes I reviewed the patient's medical records. Lab Data Lab results reviewed: Yes I reviewed the patient's lab results. Result diagrams: 09/11/21 13:04 09/11/21 16:38 Labs: Lab Results 09/11/21 09/11/21 09/11/21 Range/Units 13:04 13:04 13:04 WBC 8.2 (4.8-10.8) X10*3/uL RBC 4.36 D (4.20-5.50) X10*6/uL Hgb 14.3 D (12.0-16.0) g/dl Hct 38.6 (37.0-47.0) % MCV 88.5 (80.0-98.0) fL MCH 32.8 (27.0-33.0) pg MCHC 37.0 H (31.0-35.0) g/dl RDW 13.1 (11.0-16.0) % Plt Count 264 (160-400) X10*3/uL MPV 10.5 (9.4-12.3) fL Immature Gran % (Auto) 0.5 H (0.0-0.4) % Neut % (Auto) 71.4 (45-73) % Lymph % (Auto) 17.5 L (20-40) % [place] % (Auto) 10.3 (2-11) % Eos % (Auto) 0.1 (0-4) % Baso % (Auto) 0.2 (0-2) % Lymph # (Auto) 1.4 (1.2-4.9) X10*3/uL [place] # (Auto) 0.8 (0.1-1.2) X10*3/uL Eos # (Auto) 0.0 (0.0-0.4) X10*3/uL Baso # (Auto) 0.0 (0.0-0.2) X10*3/uL Abs Immat Gran (auto) 0.04 H (0.00-0.03) X10*3/uL Absolute Neuts (auto) 5.8 (2.0-8.3) x10*3/uL Absolute Nucleated RBC 0.000 (0.0-0.012) X10*3/uL Nucleated RBC % (auto) 0.0 (0.0-0.2) /100WBC Sodium 122 L (135-145) mmol/L Potassium 2.6 L D (3.3-5.1) mmol/L Chloride 78 L D (96-108) mmol/L Carbon Dioxide 20 L (22-29) mmol/L Anion Gap 27 H (12-20) BUN 7 L D (9-16) mg/dL Creatinine 0.72 (0.5-1.4) mg/dL Estim Creat Clear Calc 83.0 Estimated GFR > 60 Random Glucose 179 H (60-115) mg/dL Calcium 9.3 (8.4-10.2) mg/dL Magnesium 1.5 L (1.6-2.6) mg/dL Ethyl Alcohol < 10 mg/dL COVID-19 (JABARI) Negative (Negative) COVID-19 Clin Com See Note 09/11/21 Range/Units 16:38 WBC (4.8-10.8) X10*3/uL RBC (4.20-5.50) X10*6/uL Hgb (12.0-16.0) g/dl Hct (37.0-47.0) % MCV (80.0-98.0) fL MCH (27.0-33.0) pg MCHC (31.0-35.0) g/dl RDW (11.0-16.0) % Plt Count (160-400) X10*3/uL MPV (9.4-12.3) fL Immature Gran % (Auto) (0.0-0.4) % Neut % (Auto) (45-73) % Lymph % (Auto) (20-40) % [place] % (Auto) (2-11) % Eos % (Auto) (0-4) % Baso % (Auto) (0-2) % Lymph # (Auto) (1.2-4.9) X10*3/uL [place] # (Auto) (0.1-1.2) X10*3/uL Eos # (Auto) (0.0-0.4) X10*3/uL Baso # (Auto) (0.0-0.2) X10*3/uL Abs Immat Gran (auto) (0.00-0.03) X10*3/uL Absolute Neuts (auto) (2.0-8.3) x10*3/uL Absolute Nucleated RBC (0.0-0.012) X10*3/uL Nucleated RBC % (auto) (0.0-0.2) /100WBC Sodium 125 L (135-145) mmol/L Potassium 2.6 L (3.3-5.1) mmol/L Chloride 86 L (96-108) mmol/L Carbon Dioxide 25 (22-29) mmol/L Anion Gap 17 (12-20) BUN 6 L (9-16) mg/dL Creatinine 0.59 (0.5-1.4) mg/dL Estim Creat Clear Calc 101.2 Estimated GFR > 60 Random Glucose 135 H (60-115) mg/dL Calcium 8.5 D (8.4-10.2) mg/dL Magnesium (1.6-2.6) mg/dL Ethyl Alcohol mg/dL COVID-19 (JABARI) (Negative) COVID-19 Clin Com Critical Care Time Critical Care Time Critical Care Time: Yes Total Critical Care Time: 30 Attestation: I spent 30 minutes of Critical Care Time with this patient. This does not include time spent on separately reported billable procedures. Discharge Plan Discharge Clinical Impression: Alcohol withdrawal, Acute hypokalemia, Acute hyponatremia Patient Disposition: Admitted As Inpatient
[2021-09-11 13:11] LABS: Basophils Percent Auto 0.2 % (0-2); Eosinophils Percent Auto 0.1 % (0-4); Hematocrit 38.6 % (37.0-47.0); Hemoglobin 14.3 g/dl (12.0-16.0); Imm Gran Abs Auto 0.04 X10*3/uL (0.00-0.03); Imm Gran Pct Auto 0.5 % (0.0-0.4); Lymphocytes Absolute Auto 1.4 X10*3/uL (1.2-4.9); Lymphocytes Percent Auto 17.5 % (20-40); MANUAL DIFF FLAG NO; Mean Corpuscular Hemoglobin 32.8 pg (27.0-33.0); Mean Corpuscular Volume 88.5 fL (80.0-98.0); Mean Platelet Volume 10.5 fL (9.4-12.3); Monocytes Absolute Auto 0.8 X10*3/uL (0.1-1.2); Monocytes Percent Auto 10.3 % (2-11); Neutrophils Absolute Auto 5.8 x10*3/uL (2.0-8.3); Neutrophils Percent Auto 71.4 % (45-73); Platelet Count 264 X10*3/uL (160-400); Red Blood Count 4.36 X10*6/uL (4.20-5.50); Red Cell Distribution Width 13.1 % (11.0-16.0); White Blood Count 8.2 X10*3/uL (4.8-10.8)
[2021-09-11 13:26] LABS: COVID-19 Test Negative (Negative); IDNOW Serial# 16C4AD1C
[2021-09-11 13:42] LABS: Anion Gap 27 (12-20); Blood Urea Nitrogen 7 mg/dL (9-16); Calcium 9.3 mg/dL (8.4-10.2); Carbon Dioxide 20 mmol/L (22-29); Chloride 78 mmol/L (96-108); Estimated Glomerular Filt Rate > 60; Ethanol < 10 mg/dL; Glucose Random 179 mg/dL (60-115); Potassium 2.6 mmol/L (3.3-5.1); Sodium 122 mmol/L (135-145)
--- NOTE | 2021-09-11 14:00 | PC.NURSE ---
pt's jina sclera yellow. mlp aware.
[2021-09-11 14:08] LABS: Magnesium 1.5 mg/dL (1.6-2.6)
[2021-09-11] MEDS: Magnesium Sulfate/H2O 2 GM/50 ML PIGGYBACK IV (14:32)
[2021-09-11] MEDS: ondansetron HCL 4 MG/2 ML VIAL IVPUSH (14:50)
[2021-09-11] MEDS: Potassium Chloride ER 20 MEQ TAB.ER.PRT 40 MEQ PO (14:52)
[2021-09-11] MEDS: PHENobarbitaL 200 MG, PHENobarbitaL 15 MG 215 MG PO (14:53)
--- NOTE | 2021-09-11 14:53 | PHA.MEDREC ---
Pharmacy Consult ? Medication Reconciliation Pharmacy has completed the medication reconciliation. Patient is not adherent to her medications. Patient reports she stopped taking her medications about one week before she started drinking again. She reported the her sertraline dose was increasedto 50 mg after the last time she was here. Leatha Adams, PharmD
[2021-09-11] MEDS: 0.9 % Sodium Chloride 1,000 ML 999 ML IV (15:06)
[2021-09-11 16:07] VITALS: BP 125/83; PULSE 98; RESP 18; O2SAT 98
[2021-09-11] MEDS: KCl 40 mEq in 0.9 % Sodium Chl 40 MEQ/1,000 ML IV.SOLN 250 MEQ IV (16:10)
--- NOTE | 2021-09-11 16:10 | PM.IMHP ---
History of Present Illness Date of Service: 09/11/21 Chief Complaint: Withdrawal 41 year old women presenting to the ED with rapid heart rate and feeling unwell. Apparently she relapsed, due to family and social issues, after not drinking for 3 months about a month ago and has been drinking about 7 minutes a day she last drank this morning. She denies chest pain, shortness breath, loss of consciousness, nausea, vomiting, diarrhea. She has not been eating or drinking any other fluids other than alcohol. In the ER her sodium was noted to be 122 she did receive 1 L of IV fluid, potassium 2.6, she received IV potassium, anion gap 27, bicarb 20, magnesium 1.5. She has been hemodynamically stable. She was started on phenobarbital in the ER, given Ativan, Librium, Zofran. She be admitted for further management and treatment alcoholic ketoacidosis and multiple electrolyte abnormalities. Review of Systems Review of Systems: Denies any recent fever chills or decrease in appetite respiratory denies any shortness of breath coverage production cardiovascular Denies chest pain gastrointestinal denies any dysphagia abdominal pain nausea vomiting or diarrhea genitourinary denies any dysuria frequency or hematuria musculoskeletal denies any joint pain or swelling neuropsych denies any weakness or seizures all other systems reviewed are negative [facility] Medical History (Updated 09/11/21 @ 16:14 by Kalyn Field NP) Alcohol abuse Anxiety Family History Father Medical history unknown Mother Medical history unknown Paternal Grandfather Cancer Sister Epilepsy Daughter In good health Son In good health Surgical History No pertinent past surgical history Social History Household Members: None Housing: Apartment Do you presently have visiting nurse or other home services: No Alcohol intake: current Alcohol intake frequency: 3 or more drinks per day Alcohol type: hard liquor Patient Tobacco Use Status: Former Tobacco user Tobacco use type: Cigarette Smoked in Last 30 Days: No e-Cigarette/Vaping Use: Former Use Patient Interested in Nicotine Replacement: No Second Hand Smoke Exposure: No Use of substances other than those prescribed or required for medical reasons: No Any prior treatment program specific to substance use: No Have you been hit, kicked, punched, or otherwise hurt by someone within the past year? If so, by whom?: No Do you feel safe in your current relationship?: Yes Is there a partner from a previous relationship who is making you feel unsafe now?: No Are you made to feel afraid or neglected: No Advance Directives: Yes Advance Directives on File: Yes Advance Directives Date on File: 01/25/21 Recently lost weight without trying: Unsure Eating poorly because of decreased appetite: No Nutrition Risks: No Nutritional Risk Patient : No : No Poor oral hygiene: No service: No Current occupational status: unemployed Meds Allergies Allergy/AdvReac Type Severity Reaction Status Date / Time Sulfa (Sulfonamide Allergy Mild RASH Verified 09/11/21 12:40 Antibiotics) [SULFA (SULFONAMIDE ANTIBIOTICS)] magnesium AdvReac Diarrhea Verified 09/11/21 12:40 Active Medications: Current Medications Potassium Chloride/Sodium Chloride () 40 meq in 1,000 mls @ 250 mls/hr IV .Q4H GHASSAN Stop: 09/11/21 17:59 Pharmacy Consult (Consult Rx Etoh Phenob Po Only) 1 each MISCELLANE ONCE PRN; Protocol PRN Reason: Consult order Pharmacy Consult (Consult Rx Perform Med Rec) 1 each MISCELLANE ONCE PRN PRN Reason: Consult order Phenobarbital 100 mg/ (Phenobarbital 60 mg) 160 mg PO Q3H GHASSAN; Protocol Stop: 09/11/21 20:01 Phenobarbital (Phenobarbital 15 Mg Tablet) 45 mg PO BID GHASSAN; Protocol Stop: 09/13/21 21:01 Phenobarbital (Phenobarbital 15 Mg Tablet) 15 mg PO BID GHASSAN; Protocol Stop: 09/15/21 21:01 Phenobarbital (Phenobarbital 15 Mg Tablet) 15 mg PO DAILY GHASSAN; Protocol Stop: 09/17/21 09:01 Home Medications Medication Instructions Recorded Confirmed Last Taken Type naltrexone 50 mg tablet 50 mg PO DAILY 04/20/21 09/11/21 1 Month Ago History ~08/12/21 sertraline 25 mg tablet 50 mg PO DAILY 06/20/21 09/11/21 1 Month Ago History ~08/12/21 melatonin 5 mg tablet 5 mg PO BEDTIME PRN Sleep 07/29/21 09/11/21 1 Month Ago History ~08/12/21 cholecalciferol (vitamin D3) 25 25 mcg PO DAILY 09/11/21 09/11/21 1 Month Ago History mcg (1,000 unit) tablet ~08/12/21 Physical Exam Vital Signs and Narrative: Vital Signs: Last Vital Signs Temp 96.6 F L 09/11/21 12:36 Pulse 98 09/11/21 16:07 Resp 18 09/11/21 16:07 BP 125/83 09/11/21 16:07 Pulse Ox 98 09/11/21 16:07 O2 Del Method 09/11/21 16:07 BMI result Body Mass Index 20.3 Appearing in no acute distress head is normocephalic atraumatic eyes pupils are PERRLA sclera is anicteric mouth throat mucous membranes are intact and moist neck is supple no lymphadenopathy, no JVD noted lung sounds are clear to auscultation heart regular rate rhythm, clear S1, S2 positive bowel sounds, abdomen is soft, nontender neuro patient is alert x3, no focal deficits Results Labs CBC and Chem 7: 09/12/21 06:04 09/12/21 06:04 Labs: Laboratory Results - last 24 hr 09/11/21 09/11/21 09/11/21 13:04 13:04 13:04 MCV 88.5 MCH 32.8 MCHC 37.0 H RDW 13.1 Plt Count 264 MPV 10.5 Immature Gran % (Auto) 0.5 H Neut % (Auto) 71.4 Lymph % (Auto) 17.5 L [place] % (Auto) 10.3 Eos % (Auto) 0.1 Baso % (Auto) 0.2 Lymph # (Auto) 1.4 [place] # (Auto) 0.8 Eos # (Auto) 0.0 Baso # (Auto) 0.0 Abs Immat Gran (auto) 0.04 H Absolute Neuts (auto) 5.8 Absolute Nucleated RBC 0.000 Nucleated RBC % (auto) 0.0 Anion Gap 27 H Estim Creat Clear Calc 83.0 Estimated GFR > 60 Random Glucose 179 H Calcium 9.3 Magnesium 1.5 L Ethyl Alcohol < 10 COVID-19 (JABARI) Negative COVID-19 Clin Com See Note Assessment and Plan (1) Alcohol withdrawal: Status: Acute Plan 41 year old women admitted with alcohol related electrolyte imbalances Alcohol abuse with alcoholic ketoacidosis Anion gap 27 bicarb 20 high risk for withdrawal phenobarb protocol thiamine, folic acid, MVI encourage food intake Hyponatremia secondary to alcohol use nephrology consult repeat sodium Hypokalemia/hypomagnesemia secondary to alcohol abuse repleted follow BMP and replete as neccesary DVT prophylalaxis with Lovenox Attending Dr. Fuentes Full code 2 midnights for treatment of alcohol related electrolyte abnormalities Quality Stroke Does the patient have a stroke diagnosis?: No VTE Prior VTE?: No VTE Risk Level:: Medical - moderate - high VTE Device Contraindication: Treatment Not Indicated VTE Drug Contraindication: N/A - Med Ordered
[2021-09-11 17:07] LABS: Anion Gap 17 (12-20); Blood Urea Nitrogen 6 mg/dL (9-16); Calcium 8.5 mg/dL (8.4-10.2); Carbon Dioxide 25 mmol/L (22-29); Chloride 86 mmol/L (96-108); Creatinine Clr Calc Pharmacy 101.2; Estimated Glomerular Filt Rate > 60; Glucose Random 135 mg/dL (60-115); Potassium 2.6 mmol/L (3.3-5.1); Sodium 125 mmol/L (135-145)
[2021-09-11] MEDS: Enoxaparin Sodium 40 MG/0.4 ML SYRINGE SUBCUT (17:25)
[2021-09-11] MEDS: PHENobarbitaL 100 MG, PHENobarbitaL 60 MG 160 MG PO ×2 (17:25→20:11)
[2021-09-11] MEDS: Potassium Chloride ER 20 MEQ TAB.ER.PRT PO (19:03)
[2021-09-11 19:04] VITALS: BP 121/87; PULSE 105; RESP 16; TEMP 36.9; O2SAT 100
[2021-09-11] MEDS: KCl 40 mEq in 0.9 % Sodium Chl 40 MEQ/1,000 ML IV.SOLN 50 MEQ IVCONT (19:58)
--- NOTE | 2021-09-11 20:06 | PC.NURSE ---
report given to RN, awaiting transportation.
[2021-09-11 20:18] LABS: Anion Gap 18 (12-20); Blood Urea Nitrogen 6 mg/dL (9-16); Calcium 8.3 mg/dL (8.4-10.2); Carbon Dioxide 23 mmol/L (22-29); Chloride 90 mmol/L (96-108); Creatinine Clr Calc Pharmacy 97.9; Estimated Glomerular Filt Rate > 60; Glucose Random 132 mg/dL (60-115); Potassium 2.7 mmol/L (3.3-5.1); Sodium 128 mmol/L (135-145)
[2021-09-11 20:33] LABS: Potassium Urine Random 9.8 mmol/L
[2021-09-11 20:51] LABS: Osmolality Urine 161 mosm/kg (373-1093)
[2021-09-11 21:06] VITALS: BP 137/84; PULSE 108; RESP 18; TEMP 36.2; O2SAT 100
[2021-09-11 21:38] VITALS: BMI 22.4
[2021-09-11 23:49] VITALS: BP 105/69; PULSE 93; RESP 18; TEMP 36.4; O2SAT 98
[2021-09-12 03:58] VITALS: BP 105/66; PULSE 83; RESP 18; TEMP 36.7; O2SAT 100
[2021-09-12 06:52] LABS: MANUAL DIFF FLAG NO
[2021-09-12 06:55] LABS: Basophils Percent Auto 0.5 % (0-2); Eosinophils Absolute Auto 0.1 X10*3/uL (0.0-0.4); Eosinophils Percent Auto 2.8 % (0-4); Hematocrit 30.8 % (37.0-47.0); Hemoglobin 10.8 g/dl (12.0-16.0); Imm Gran Abs Auto 0.03 X10*3/uL (0.00-0.03); Imm Gran Pct Auto 0.7 % (0.0-0.4); Lymphocytes Absolute Auto 1.4 X10*3/uL (1.2-4.9); Lymphocytes Percent Auto 31.8 % (20-40); Mean Corpuscular HGB Conc 35.1 g/dl (31.0-35.0); Mean Corpuscular Hemoglobin 32.9 pg (27.0-33.0); Mean Corpuscular Volume 93.9 fL (80.0-98.0); Mean Platelet Volume 10.7 fL (9.4-12.3); Monocytes Absolute Auto 0.6 X10*3/uL (0.1-1.2); Monocytes Percent Auto 13.6 % (2-11); Neutrophils Absolute Auto 2.2 x10*3/uL (2.0-8.3); Neutrophils Percent Auto 50.6 % (45-73); Platelet Count 173 X10*3/uL (160-400); Red Blood Count 3.28 X10*6/uL (4.20-5.50); Red Cell Distribution Width 13.9 % (11.0-16.0); White Blood Count 4.3 X10*3/uL (4.8-10.8)
[2021-09-12 07:49] LABS: Anion Gap 17 (12-20); Blood Urea Nitrogen 5 mg/dL (9-16); Carbon Dioxide 19 mmol/L (22-29); Chloride 95 mmol/L (96-108); Creatinine Clr Calc Pharmacy 115.3; Estimated Glomerular Filt Rate > 60; Glucose Random 110 mg/dL (60-115); Potassium 2.7 mmol/L (3.3-5.1); Sodium 128 mmol/L (135-145)
[2021-09-12 07:55] LABS: Magnesium 2.1 mg/dL (1.6-2.6)
[2021-09-12 08:00] VITALS: BP 121/81; PULSE 90; RESP 16; TEMP 36.1; O2SAT 100
[2021-09-12 08:30] LABS: Calcium 7.8 mg/dL (8.4-10.2)
--- NOTE | 2021-09-12 09:09 | HO.PM.IMPN ---
Subjective Subjective Date of Service: 09/12/21 Review of Systems Follow up ETOH, electrolyte abnormalities Feeling better, was able to get some sleep Still having some tremors Denies any nausea, vomiting Physical Exam Vital Signs: Vital Signs: Last Vital Signs Temp 97.0 F 09/12/21 08:00 Pulse 90 09/12/21 08:00 Resp 16 09/12/21 08:00 BP 121/81 09/12/21 08:00 Pulse Ox 100 09/12/21 08:00 O2 Del Method 09/12/21 08:00 BMI result Body Mass Index 22.4 Appearing in no acute distress lung sounds are clear to auscultation heart regular rate rhythm, clear S1, S2 positive bowel sounds, abdomen is soft, nontender neuro patient is alert x3, no focal deficits Objective Data Active Medications Acetaminophen (Acetaminophen 325 Mg Tablet) 650 mg PO Q6H PRN PRN Reason: Pain, Mild (Pain Scale 1-3) Enoxaparin Sodium (Enoxaparin Sodium 40 Mg/0.4 Ml Syringe) 40 mg SUBCUT Q24H [facility] Last Admin: 09/11/21 17:25 Dose: 40 mg Documented By: NICOLASA Folic Acid (Folic Acid 1 Mg Tablet) 1 mg PO DAILY [facility] Potassium Chloride/Sodium Chloride () 40 meq in 1,000 mls @ 50 mls/hr IVCONT .Q20H [facility] Last Admin: 09/11/21 19:58 Dose: 50 mls/hr Documented By: TRISTA Loperamide HCl (Loperamide Hcl 2 Mg Capsule) 2 mg PO Q4H PRN PRN Reason: Diarrhea Multivitamins/Vitamin C (Multivitamin Tablet) 1 tab PO DAILY [facility] Pharmacy Consult (Consult Rx Etoh Phenob Po Only) 1 each MISCELLANE ONCE PRN; Protocol PRN Reason: Consult order Pharmacy Consult (Consult Rx Perform Med Rec) 1 each MISCELLANE ONCE PRN PRN Reason: Consult order Phenobarbital (Phenobarbital 15 Mg Tablet) 45 mg PO BID [facility]; Protocol Stop: 09/13/21 21:01 Phenobarbital (Phenobarbital 15 Mg Tablet) 15 mg PO BID [facility]; Protocol Stop: 09/15/21 21:01 Phenobarbital (Phenobarbital 15 Mg Tablet) 15 mg PO DAILY [facility]; Protocol Stop: 09/17/21 09:01 Sertraline HCl (Sertraline Hcl 50 Mg Tablet) 50 mg PO DAILY [facility] Sodium Chloride (0.9 % Sodium Chloride Flush 3 Ml Syringe) 3 ml IVFLUSH QSHIFT [facility] Last Admin: 09/12/21 00:19 Dose: Not Given Documented By: BABITA Non-Admin Reason: IV Running Thiamine HCl (Thiamine Hcl 100 Mg Tablet) 100 mg PO DAILY [facility] Vitamin D (Cholecalciferol (Vitamin D3) 25 Mcg Tablet) 25 mcg PO DAILY [facility] Labs CBC & Chem 7: 09/12/21 06:04 09/12/21 06:04 Labs: Laboratory Results - last 24 hr 09/11/21 09/11/21 09/11/21 13:04 13:04 13:04 MCV 88.5 MCH 32.8 MCHC 37.0 H RDW 13.1 Plt Count 264 MPV 10.5 Immature Gran % (Auto) 0.5 H Neut % (Auto) 71.4 Lymph % (Auto) 17.5 L [place] % (Auto) 10.3 Eos % (Auto) 0.1 Baso % (Auto) 0.2 Lymph # (Auto) 1.4 [place] # (Auto) 0.8 Eos # (Auto) 0.0 Baso # (Auto) 0.0 Abs Immat Gran (auto) 0.04 H Absolute Neuts (auto) 5.8 Absolute Nucleated RBC 0.000 Nucleated RBC % (auto) 0.0 Anion Gap 27 H Estim Creat Clear Calc 83.0 Estimated GFR > 60 Random Glucose 179 H Calcium 9.3 Magnesium 1.5 L Urine Osmolality Ur Random Sodium Ur Random Potassium Ur Random Chloride Ethyl Alcohol < 10 COVID-19 ([facility]I) Negative COVID-19 Clin Com See Note 09/11/21 09/11/21 09/11/21 16:38 19:39 20:13 MCV MCH MCHC RDW Plt Count MPV Immature Gran % (Auto) Neut % (Auto) Lymph % (Auto) [place] % (Auto) Eos % (Auto) Baso % (Auto) Lymph # (Auto) [place] # (Auto) Eos # (Auto) Baso # (Auto) Abs Immat Gran (auto) Absolute Neuts (auto) Absolute Nucleated RBC Nucleated RBC % (auto) Anion Gap 17 18 Estim Creat Clear Calc 101.2 97.9 Estimated GFR > 60 > 60 Random Glucose 135 H 132 H Calcium 8.5 D 8.3 L Magnesium Urine Osmolality Ur Random Sodium 30.0 Ur Random Potassium 9.8 Ur Random Chloride 23.0 Ethyl Alcohol COVID-19 ([facility]) COVID-19 Clin Com 09/11/21 09/12/21 09/12/21 20:13 06:04 06:04 MCV 93.9 D MCH 32.9 MCHC 35.1 H RDW 13.9 Plt Count 173 D MPV 10.7 Immature Gran % (Auto) 0.7 H Neut % (Auto) 50.6 Lymph % (Auto) 31.8 [place] % (Auto) 13.6 H Eos % (Auto) 2.8 Baso % (Auto) 0.5 Lymph # (Auto) 1.4 [place] # (Auto) 0.6 Eos # (Auto) 0.1 Baso # (Auto) 0.0 Abs Immat Gran (auto) 0.03 Absolute Neuts (auto) 2.2 Absolute Nucleated RBC 0.000 Nucleated RBC % (auto) 0.0 Anion Gap 17 Estim Creat Clear Calc 115.3 Estimated GFR > 60 Random Glucose 110 Calcium 7.8 L D Magnesium Urine Osmolality 161 L Ur Random Sodium Ur Random Potassium Ur Random Chloride Ethyl Alcohol COVID-19 ([facility]) COVID-19 Clin Com 09/12/21 06:04 MCV MCH MCHC RDW Plt Count MPV Immature Gran % (Auto) Neut % (Auto) Lymph % (Auto) [place] % (Auto) Eos % (Auto) Baso % (Auto) Lymph # (Auto) [place] # (Auto) Eos # (Auto) Baso # (Auto) Abs Immat Gran (auto) Absolute Neuts (auto) Absolute Nucleated RBC Nucleated RBC % (auto) Anion Gap Estim Creat Clear Calc Estimated GFR Random Glucose Calcium Magnesium 2.1 Urine Osmolality Ur Random Sodium Ur Random Potassium Ur Random Chloride Ethyl Alcohol COVID-19 ([facility]) COVID-19 Clin Com Assessment and Plan (1) Alcohol withdrawal: Status: Acute Plan 41 year old women admitted with alcohol related electrolyte imbalances Alcohol abuse with alcoholic ketoacidosis Anion gap 27, now closed bicarb 19 high risk for withdrawal continue phenobarb protocol thiamine, folic acid, MVI encourage food intake Hyponatremia. secondary to alcohol use nephrology consult pending continue fluids follow BMP Hypokalemia/hypomagnesemia? secondary to alcohol abuse repleted follow BMP and replete as neccesary DVT prophylalaxis with Lovenox Attending Dr. Simon Full code continued hospitalization for treatment of alcohol related electrolyte abnormalities Quality Stroke Does the patient have a stroke diagnosis?: No VTE Prior VTE?: No VTE Risk Level:: Medical - moderate - high VTE Device Contraindication: Treatment Not Indicated VTE Drug Contraindication: N/A - Med Ordered
[2021-09-12] MEDS: PHENobarbitaL 15 MG TABLET 45 MG PO ×2 (09:24→20:57)
[2021-09-12] MEDS: Folic Acid 1 MG TABLET PO (09:24)
[2021-09-12] MEDS: Cholecalciferol (Vitamin D3) 25 MCG TABLET PO (09:24)
[2021-09-12] MEDS: Sertraline HCL 50 MG TABLET PO (09:24)
[2021-09-12] MEDS: Thiamine HCL 100 MG TABLET PO (09:24)
[2021-09-12] MEDS: Multivitamin TABLET 1 TAB PO (09:24)
[2021-09-12] MEDS: Potassium Chloride ER 20 MEQ TAB.ER.PRT 40 MEQ PO (09:24)
[2021-09-12 12:00] VITALS: BP 101/72; PULSE 94; RESP 18; TEMP 36.2; O2SAT 100
--- NOTE | 2021-09-12 12:11 | MHC.CM.PN ---
PATIENT IS INDEPENDENT WITH ADLS HCP IS ON FILE AND VERIFIED (MOTHER ARMANDO). PATIENT REPORTED BEING VACCINATED X 2 AGAINST COVID-19 CASE MANAGEMENT FOLLOWING FOR DC NEEDS.
[2021-09-12] MEDS: KCl 40 mEq in 0.9 % Sodium Chl 40 MEQ/1,000 ML IV.SOLN 100 MEQ IVCONT ×2 (13:02→23:32)
[2021-09-12] MEDS: Loperamide HCl 2 MG CAPSULE PO (13:02)
[2021-09-12] MEDS: Famotidine 20 MG TABLET PO ×2 (13:46→20:57)
[2021-09-12 14:28] LABS: Blood Urea Nitrogen 3 mg/dL (9-16); Calcium 8.2 mg/dL (8.4-10.2); Creatinine Clr Calc Pharmacy 111.1; Estimated Glomerular Filt Rate > 60; Glucose Random 117 mg/dL (60-115)
[2021-09-12 14:49] LABS: Anion Gap 20 (12-20); Carbon Dioxide 16 mmol/L (22-29); Chloride 95 mmol/L (96-108); Potassium 3.5 mmol/L (3.3-5.1); Sodium 127 mmol/L (135-145)
[2021-09-12 15:08] VITALS: BP 96/68; PULSE 87; RESP 16; TEMP 36.6; O2SAT 100
[2021-09-12] MEDS: Enoxaparin Sodium 40 MG/0.4 ML SYRINGE SUBCUT (17:50)
[2021-09-12 19:20] VITALS: BP 132/92; PULSE 84; RESP 16; TEMP 36.3; O2SAT 99
--- NOTE | 2021-09-12 20:59 | PM.EVENT ---
Event Note Date of Service: 09/12/21 Event Note: Pt seen and examined Full consult to follow 1. 41 year old women with Hyponatremia Serum Osm not available Clinically looks prerenal Low Urone osm / NA - ? increased PO fluid intake On SSRI 2. Hypokalemia 3. Hypomagnisemia 4. Alcohol abuse with alcoholic ketoacidosis Anion gap 27, Serum Osm Ordered Continue IVF with NS Correction acceptable Fluid restriction D/w Medical team Thx Dr. Rudolph
[2021-09-12 23:28] VITALS: BP 115/74; PULSE 88; RESP 16; TEMP 36.8; O2SAT 97
[2021-09-13 03:18] VITALS: BP 91/61; PULSE 73; RESP 16; TEMP 36.1; O2SAT 98
[2021-09-13 06:24] LABS: Osmolality, Serum 287 mosm/kg (281-305)
[2021-09-13 07:42] VITALS: BP 125/95; PULSE 89; RESP 18; TEMP 37.5; O2SAT 97
[2021-09-13 08:13] LABS: Anion Gap 15 (12-20); Blood Urea Nitrogen 2 mg/dL (9-16); Calcium 8.7 mg/dL (8.4-10.2); Carbon Dioxide 24 mmol/L (22-29); Chloride 98 mmol/L (96-108); Creatinine Clr Calc Pharmacy 113.1; Estimated Glomerular Filt Rate > 60; Glucose Random 84 mg/dL (60-115); Potassium 4.7 mmol/L (3.3-5.1); Sodium 132 mmol/L (135-145)
[2021-09-13 08:14] LABS: HBS Num1 4.56 mIU/mL (0-7.99); HBc Num1 0.15 S/CO (0.00-0.79); HBsAGNum1 0.17 S/CO (0.00-0.99); Hepatitis B Core Antibody Nonreactive (Nonreactive); Hepatitis B Surface Antigen Negative (Negative); ~HepC Num1 0.15 S/CO (0.00-0.79); ~Hepatitis B Surface Antibody NONREACTIVE (Nonreactive); ~Hepatitis C Antibody Nonreactive (Nonreactive)
--- NOTE | 2021-09-13 08:23 | HO.PM.IMPN ---
Subjective Subjective Date of Service: 09/13/21 Review of Systems Follow up ETOH, electrolyte abnormalities Feeling better, was able to get some sleep Still having some tremors but improved reports diarrhea and abdominal pain feels like food getting stuck in her throat Physical Exam Vital Signs: Vital Signs: Last Vital Signs Temp 99.5 F 09/13/21 07:42 Pulse 89 09/13/21 07:42 Resp 18 09/13/21 07:42 BP 125/95 H 09/13/21 07:42 Pulse Ox 97 09/13/21 07:42 O2 Del Method 09/13/21 07:42 BMI result Body Mass Index 22.4 Appearing in no acute distress lung sounds are clear to auscultation heart regular rate rhythm, clear S1, S2 positive bowel sounds, abdomen is soft, nontender neuro patient is alert x3, no focal deficits Objective Data Active Medications Acetaminophen (Acetaminophen 325 Mg Tablet) 650 mg PO Q6H PRN PRN Reason: Pain, Mild (Pain Scale 1-3) Enoxaparin Sodium (Enoxaparin Sodium 40 Mg/0.4 Ml Syringe) 40 mg SUBCUT Q24H [facility] Last Admin: 09/12/21 17:50 Dose: 40 mg Documented By: AKIRA Famotidine (Famotidine 20 Mg Tablet) 20 mg PO BID [facility] Last Admin: 09/12/21 20:57 Dose: 20 mg Documented By: BABITA Folic Acid (Folic Acid 1 Mg Tablet) 1 mg PO DAILY [facility] Last Admin: 09/12/21 09:24 Dose: 1 mg Documented By: AKIRA Loperamide HCl (Loperamide Hcl 2 Mg Capsule) 2 mg PO Q4H PRN PRN Reason: Diarrhea Last Admin: 09/12/21 13:02 Dose: 2 mg Documented By: AKIRA Multivitamins/Vitamin C (Multivitamin Tablet) 1 tab PO DAILY [facility] Last Admin: 09/12/21 09:24 Dose: 1 tab Documented By: AKIRA Pharmacy Consult (Consult Rx Etoh Phenob Po Only) 1 each MISCELLANE ONCE PRN; Protocol PRN Reason: Consult order Pharmacy Consult (Consult Rx Perform Med Rec) 1 each MISCELLANE ONCE PRN PRN Reason: Consult order Phenobarbital (Phenobarbital 15 Mg Tablet) 45 mg PO BID [facility]; Protocol Stop: 09/13/21 21:01 Last Admin: 09/12/21 20:57 Dose: 45 mg Documented By: BABITA Phenobarbital (Phenobarbital 15 Mg Tablet) 15 mg PO BID [facility]; Protocol Stop: 09/15/21 21:01 Phenobarbital (Phenobarbital 15 Mg Tablet) 15 mg PO DAILY [facility]; Protocol Stop: 09/17/21 09:01 Sertraline HCl (Sertraline Hcl 50 Mg Tablet) 50 mg PO DAILY [facility] Last Admin: 09/12/21 09:24 Dose: 50 mg Documented By: AKIRA Sodium Chloride (0.9 % Sodium Chloride Flush 3 Ml Syringe) 3 ml IVFLUSH QSHIFT [facility] Last Admin: 09/13/21 01:11 Dose: Not Given Documented By: BABITA Non-Admin Reason: IV Running Thiamine HCl (Thiamine Hcl 100 Mg Tablet) 100 mg PO DAILY [facility] Last Admin: 09/12/21 09:24 Dose: 100 mg Documented By: AKIRA Vitamin D (Cholecalciferol (Vitamin D3) 25 Mcg Tablet) 25 mcg PO DAILY [facility] Last Admin: 09/12/21 09:24 Dose: 25 mcg Documented By: AKIRA Labs CBC & Chem 7: 09/12/21 06:04 09/13/21 05:20 Labs: Laboratory Results - last 24 hr 09/12/21 09/12/21 09/13/21 06:04 13:56 05:20 Anion Gap 20 Estim Creat Clear Calc 111.1 Estimated GFR > 60 Random Glucose 117 H Osmolality 287 Calcium 7.8 L D 8.2 L 09/13/21 05:20 Anion Gap 15 Estim Creat Clear Calc 113.1 Estimated GFR > 60 Random Glucose 84 Osmolality Calcium 8.7 D Assessment and Plan (1) Alcohol withdrawal: Status: Acute Plan 41 year old women admitted with alcohol related electrolyte imbalances Colitis vs diverticulitis, on abd CT stool studies pending GI consult start Levaquin and flagyl change to clear liquids for now odonophagia likely from vomiting episodes at home swallow evaluation Alcohol abuse with alcoholic ketoacidosis Anion gap 27, now closed bicarb 19 high risk for withdrawal continue phenobarb protocol thiamine, folic acid, MVI encourage food intake Hyponatremia. Resolved secondary to alcohol use nephrology following stop fluids follow BMP Hypokalemia/hypomagnesemia. resolved secondary to alcohol abuse repleted follow BMP and replete as neccesary DVT prophylalaxis with Lovenox Attending Dr. Maria Full code continued hospitalization for treatment of alcohol related electrolyte abnormalities Quality Stroke Does the patient have a stroke diagnosis?: No VTE Prior VTE?: No VTE Risk Level:: Medical - moderate - high VTE Device Contraindication: Treatment Not Indicated VTE Drug Contraindication: N/A - Med Ordered
[2021-09-13] MEDS: Thiamine HCL 100 MG TABLET PO (08:39)
[2021-09-13] MEDS: PHENobarbitaL 15 MG TABLET 45 MG PO ×2 (08:39→20:09)
[2021-09-13] MEDS: Multivitamin TABLET 1 TAB PO (08:39)
[2021-09-13] MEDS: Cholecalciferol (Vitamin D3) 25 MCG TABLET PO (08:39)
[2021-09-13] MEDS: Loperamide HCl 2 MG CAPSULE PO ×2 (08:39→14:46)
[2021-09-13] MEDS: Famotidine 20 MG TABLET PO ×2 (08:39→20:10)
[2021-09-13] MEDS: Sertraline HCL 50 MG TABLET PO (08:39)
[2021-09-13] MEDS: Folic Acid 1 MG TABLET PO (08:39)
[2021-09-13] MEDS: 0.9 % Sodium Chloride Flush 3 ML SYRINGE IVFLUSH ×3 (08:40→20:10)
[2021-09-13] MEDS: ondansetron HCL 4 MG/2 ML VIAL IVPUSH (09:30)
[2021-09-13 09:52] LABS: Alanine Aminotransferase 189 U/L (0-31); Albumin Level 3.7 g/dL (3.5-5.0); Alkaline Phosphatase 197 U/L (39-117); Aspartate Amino Transferase 416 U/L (5-31); Bilirubin Direct 2.5 mg/dL (0.0-0.5); Bilirubin Total 3.4 mg/dL (0.0-1.0); Lipase 15 U/L (8-78); Total Protein 6.9 g/dL (6.5-8.0)
[2021-09-13 10:40] LABS: CDiff Gene PCR NEGATIVE (Negative)
--- NOTE | 2021-09-13 11:05 | MHC.CM.PN ---
PER MD ROUNDS, PT NOT READY TO DC, CT PENDING. DCP REMAINS HOME WITH NO SERVICES VS WITH RESOURCES FROM [facility] [facility] TO ARRANGE TRANSPORT
[2021-09-13 11:28] VITALS: BP 110/78; PULSE 84; RESP 18; TEMP 36.4; O2SAT 99
[2021-09-13] MEDS: levoFLOXacin/D5W 500 MG/100 ML PIGGYBACK 100 MG IV (12:44)
[2021-09-13 12:57] LABS: Leukocytes Stool Qualitative NEGATIVE (NEGATIVE)
[2021-09-13 16:00] VITALS: BP 95/69; PULSE 83; RESP 18; TEMP 36.1; O2SAT 96
[2021-09-13 16:49] LABS: Anion Gap 15 (12-20); Carbon Dioxide 21 mmol/L (22-29); Chloride 96 mmol/L (96-108); Potassium 3.8 mmol/L (3.3-5.1); Sodium 128 mmol/L (135-145)
[2021-09-13] MEDS: Enoxaparin Sodium 40 MG/0.4 ML SYRINGE SUBCUT (16:59)
[2021-09-13 17:27] VITALS: BP 108/62; PULSE 82
[2021-09-13 19:28] VITALS: BP 113/83; PULSE 88; RESP 18; TEMP 36.1; O2SAT 98
--- NOTE | 2021-09-13 22:37 | PM.EVENT ---
Event Note Date of Service: 09/13/21 Event Note: GI patient seen and examined, consult dictated earlier. CT shows no diverticulitis or colitis. Diarrhea may be related to a viral process. GI Panel ordered, if this and other stool tests are negative, can d/c abx. Diet advanced as she is tolerating solids now. I have recommended outpatient colonoscopy for f/u of her symptoms and prior abnormal CT. Liver is enlarged and fatty c/w alcoholic liver disease on CT scanning, and lfts support this diagnosis as well. She is advised to discontinue alcohol use.
[2021-09-14] VITALS: BP 113/70; PULSE 79; RESP 18; TEMP 36.9; O2SAT 98
--- NOTE | 2021-09-14 01:38 | CONS_ITS ---
DATE OF SERVICE: 09/13/2021 REFERRING PHYSICIAN: Kalyn Field NP REASON FOR CONSULTATION: Diarrhea and alcoholic liver disease. HISTORY OF PRESENT ILLNESS: The patient is a 41-year-old woman, who was admitted to the hospital on September 11 with weakness and electrolyte abnormalities. She has a history of alcohol abuse and drinks approximately 6 to 12 nips of vodka on a daily basis. She reports about 1 week prior to admission she became nauseous and was unable to hold down liquids or solids except for alcohol. She was evaluated in the emergency room and was noted to have electrolyte abnormalities with hyponatremia, hypokalemia, and anemia. She also complained of diarrhea and was admitted to the hospital. She has been able to tolerate a diet and states she is swallowing well, but continued to have some diarrhea. She was evaluated with CT scanning of the abdomen and pelvis today, which showed sigmoid diverticulosis with no changes of diverticulitis. Previous CT scanning in July, question mild diverticulitis or colitis in the sigmoid. The patient denies any prior history of colitis. She has never undergone colonoscopy. PAST MEDICAL HISTORY: 1. Anxiety. 2. Alcohol abuse. CURRENT MEDICATIONS: List is reviewed in the chart. ALLERGIES: SULFA AND MAGNESIUM. FAMILY HISTORY: This is reviewed with the patient and is noncontributory. SOCIAL HISTORY: She denies current tobacco use. Alcohol use is as noted above. REVIEW OF SYSTEMS: SKIN: No pruritus HEENT: Negative. CARDIOPULMONARY: She denies shortness of breath or chest pain. GASTROINTESTINAL: As above. GENITOURINARY: Negative. NEUROPSYCHIATRIC: Negative. PHYSICAL EXAMINATION: GENERAL: Shows a pleasant female, sitting comfortably in bed eating a sandwich. VITAL SIGNS: Reviewed in the electronic medical record and are stable. SKIN: Anicteric. HEENT: Shows minimal scleral icterus. NECK: Without lymphadenopathy or thyromegaly. LUNGS: Clear. HEART: Shows regular rate and rhythm. S1 and S2. No murmur. ABDOMEN: Soft without focal masses or tenderness. Bowel sounds are present. No organomegaly is noted. EXTREMITIES: Without edema. LABORATORY DATA: Shows white blood cell count of 4.3, hematocrit 30.8, platelet count 173. Chemistries are reviewed. Liver function tests are elevated in a pattern consistent with alcohol. IMPRESSION: 1. Diarrhea. 2. Elevated liver function tests. She does not appear to have any evidence of acute diverticulitis or colitis on her CT scan on this admission, although she did have thickening on the previous CT scan as above. At this point, I think her diet can be advanced. I do not think she needs antibiotic for any GI infection. Stool testing has been ordered and I recommended she discontinue alcohol use. I did discuss with her arranging outpatient colonoscopy for followup of the abnormalities noted on her previous CT scan. Thanks for asking me to see her. I will follow her in the hospital with you. MD ALFREDA Stone/JOSE G / [id number]
[2021-09-14 04:00] VITALS: BP 93/61; PULSE 70; RESP 18; TEMP 36.2; O2SAT 99
[2021-09-14 06:27] LABS: Alanine Aminotransferase 131 U/L (0-31); Albumin Level 3.3 g/dL (3.5-5.0); Alkaline Phosphatase 167 U/L (39-117); Anion Gap 13 (12-20); Aspartate Amino Transferase 272 U/L (5-31); Bilirubin Direct 1.6 mg/dL (0.0-0.5); Bilirubin Total 2.3 mg/dL (0.0-1.0); Blood Urea Nitrogen 2 mg/dL (9-16); Calcium 8.4 mg/dL (8.4-10.2); Carbon Dioxide 23 mmol/L (22-29); Chloride 98 mmol/L (96-108); Creatinine Clr Calc Pharmacy 127.7; Estimated Glomerular Filt Rate > 60; Glucose Random 98 mg/dL (60-115); Potassium 3.4 mmol/L (3.3-5.1); Sodium 131 mmol/L (135-145); Total Protein 5.9 g/dL (6.5-8.0)
[2021-09-14 06:49] LABS: TSH reflex Free T4 1.76 uIU/mL (0.32-4.0)
[2021-09-14 07:28] VITALS: BP 114/71; PULSE 78; RESP 14; TEMP 36.7; O2SAT 99
[2021-09-14] MEDS: Folic Acid 1 MG TABLET PO (08:36)
[2021-09-14] MEDS: Multivitamin TABLET 1 TAB PO (08:36)
[2021-09-14] MEDS: Thiamine HCL 100 MG TABLET PO (08:36)
[2021-09-14] MEDS: PHENobarbitaL 15 MG TABLET PO ×2 (08:36→19:55)
[2021-09-14] MEDS: Sertraline HCL 50 MG TABLET PO (08:36)
[2021-09-14] MEDS: Cholecalciferol (Vitamin D3) 25 MCG TABLET PO (08:36)
[2021-09-14] MEDS: Famotidine 20 MG TABLET PO ×2 (08:36→19:56)
[2021-09-14] MEDS: Loperamide HCl 2 MG CAPSULE PO ×2 (08:36→15:27)
[2021-09-14] MEDS: 0.9 % Sodium Chloride Flush 3 ML SYRINGE IVFLUSH ×3 (08:37→19:55)
--- NOTE | 2021-09-14 10:05 | HO.PM.IMPN ---
Subjective Subjective Date of Service: 09/14/21 Review of Systems Follow up ETOH, electrolyte abnormalities Feeling better, was able to get some sleep Still having some tremors but improved Physical Exam Vital Signs: Vital Signs: Last Vital Signs Temp 98.0 F 09/14/21 07:28 Pulse 78 09/14/21 07:28 Resp 14 09/14/21 07:28 BP 114/71 09/14/21 07:28 Pulse Ox 99 09/14/21 07:28 O2 Del Method 09/14/21 07:28 BMI result Body Mass Index 22.4 Appearing in no acute distress lung sounds are clear to auscultation heart regular rate rhythm, clear S1, S2 positive bowel sounds, abdomen is soft, nontender neuro patient is alert x3, no focal deficits Objective Data Active Medications Acetaminophen (Acetaminophen 325 Mg Tablet) 650 mg PO Q6H PRN PRN Reason: Pain, Mild (Pain Scale 1-3) Enoxaparin Sodium (Enoxaparin Sodium 40 Mg/0.4 Ml Syringe) 40 mg SUBCUT Q24H [facility] Last Admin: 09/13/21 16:59 Dose: 40 mg Documented By: KIRSTEN Famotidine (Famotidine 20 Mg Tablet) 20 mg PO BID [facility] Last Admin: 09/14/21 08:36 Dose: 20 mg Documented By: JEWEL Folic Acid (Folic Acid 1 Mg Tablet) 1 mg PO DAILY [facility] Last Admin: 09/14/21 08:36 Dose: 1 mg Documented By: JEWEL Loperamide HCl (Loperamide Hcl 2 Mg Capsule) 2 mg PO Q8H [facility] Last Admin: 09/14/21 08:36 Dose: 2 mg Documented By: JEWEL Multivitamins/Vitamin C (Multivitamin Tablet) 1 tab PO DAILY [facility] Last Admin: 09/14/21 08:36 Dose: 1 tab Documented By: JEWEL Ondansetron HCl (Ondansetron Hcl 4 Mg/2 Ml Vial) 4 mg IVPUSH Q6H PRN PRN Reason: Nausea and Vomiting Last Admin: 09/13/21 09:30 Dose: 4 mg Documented By: JEWEL Pharmacy Consult (Consult Rx Etoh Phenob Po Only) 1 each MISCELLANE ONCE PRN; Protocol PRN Reason: Consult order Pharmacy Consult (Consult Rx Perform Med Rec) 1 each MISCELLANE ONCE PRN PRN Reason: Consult order Phenobarbital (Phenobarbital 15 Mg Tablet) 15 mg PO BID [facility]; Protocol Stop: 09/15/21 21:01 Last Admin: 09/14/21 08:36 Dose: 15 mg Documented By: JEWEL Phenobarbital (Phenobarbital 15 Mg Tablet) 15 mg PO DAILY [facility]; Protocol Stop: 09/17/21 09:01 Sertraline HCl (Sertraline Hcl 50 Mg Tablet) 50 mg PO DAILY [facility] Last Admin: 09/14/21 08:36 Dose: 50 mg Documented By: JEWEL Sodium Chloride (0.9 % Sodium Chloride Flush 3 Ml Syringe) [facility] Admin: 09/14/21 08:37 Dose: 3 ml Documented By: JEWEL Thiamine HCl (Thiamine Hcl 100 Mg Tablet) 100 mg PO DAILY [facility] Last Admin: 09/14/21 08:36 Dose: 100 mg Documented By: JEWEL Vitamin D (Cholecalciferol (Vitamin D3) 25 Mcg Tablet) 25 mcg PO DAILY [facility] Last Admin: 09/14/21 08:36 Dose: 25 mcg Documented By: JEWEL Labs CBC & Chem 7: 09/12/21 06:04 09/14/21 05:14 Labs: Laboratory Results - last 24 hr 09/13/21 09/13/21 09/13/21 08:35 08:35 16:22 Anion Gap 15 Estim Creat Clear Calc Estimated GFR Random Glucose Calcium Total Bilirubin Direct Bilirubin AST ALT Alkaline Phosphatase Total Protein Albumin TSH Random Cortisol Stool Leukocytes, Qual NEGATIVE C. difficile Tox B Gene NEGATIVE 09/14/21 09/14/21 09/14/21 05:14 05:14 05:14 Anion Gap 13 Estim Creat Clear Calc 127.7 Estimated GFR > 60 Random Glucose 98 Calcium 8.4 Total Bilirubin 2.3 H Cancelled Direct Bilirubin 1.6 H Cancelled AST 272 H Cancelled ALT 131 H Cancelled Alkaline Phosphatase 167 H Cancelled Total Protein 5.9 L Cancelled Albumin 3.3 L Cancelled TSH 1.76 Random Cortisol Stool Leukocytes, Qual C. difficile Tox B Gene 09/14/21 05:14 Anion Gap Estim Creat Clear Calc Estimated GFR Random Glucose Calcium Total Bilirubin Direct Bilirubin AST ALT Alkaline Phosphatase Total Protein Albumin TSH Random Cortisol 8.0 Stool Leukocytes, Qual C. difficile Tox B Gene Assessment and Plan (1) Alcohol withdrawal: Status: Acute Plan 41 year old women admitted with alcohol related electrolyte imbalances Diarrhea imodium resolving neg stool studies abd ct neg for acute abnormality seen by GI, follow up as o/p for colonoscopy odonophagia resolved likely from vomiting episodes at home swallow evaluation Alcohol abuse with alcoholic ketoacidosis Anion gap 27, now closed high risk for withdrawal continue phenobarb protocol while inpatient thiamine, folic acid, MVI encourage food intake Hyponatremia. Resolved secondary to alcohol use nephrology following, stable from their standpoint stop fluids follow BMP Hypokalemia/hypomagnesemia. resolved secondary to alcohol abuse repleted follow BMP and replete as neccesary DVT prophylalaxis with Lovenox Attending Dr. Maria Full code continued hospitalization for treatment of alcohol related electrolyte abnormalities and withdrawl symptoms Quality Stroke Does the patient have a stroke diagnosis?: No VTE Prior VTE?: No VTE Risk Level:: Medical - moderate - high VTE Device Contraindication: Treatment Not Indicated VTE Drug Contraindication: N/A - Med Ordered
--- NOTE | 2021-09-14 10:36 | PM.PNNEP ---
Subjective Subjective Date of Service: 09/14/21 Interval history: Seen and exmined, events noted Physical Exam Vital Signs: Vital Signs: Last Vital Signs Temp 98.0 F 09/14/21 07:28 Pulse 78 09/14/21 07:28 Resp 14 09/14/21 07:28 BP 114/71 09/14/21 07:28 Pulse Ox 99 09/14/21 07:28 O2 Del Method 09/14/21 07:28 BMI result Body Mass Index 22.4 Const: General: cooperative, no acute distress, alert and awake Nutritional Appearance: well nourished Orientation/consciousness: patient oriented x3 Limitations: no limitations HEENT: Head: Yes normal to inspection and Yes atraumatic Ears: hearing grossly normal bilaterally and external ears normal General nose exam: Normal external nose present, no nasal discharge noted and no epistaxis Face and sinus: Yes normal facial exam, No abrasion and No laceration Mouth: Normal oral and palatal mucosa present, no drooling and no muffled voice Eyes: Other: minimal jaundice Periorbital: periorbital findings normal Eyelids: Yes eyelids normal Conjunctivae: conjunctivae normal Pupils: Equal, round and reactive pupils present EOM: EOMs intact bilaterally Neck: Neck: Yes normal visual inspection, Yes full ROM and Yes no lymphadenopathy Chest: Chest palpation & inspection: normal inspection of the chest Resp: Effort & Inspection: normal respiratory effort and able to speak in complete sentences Auscultation: clear to auscultation bilaterally Cardio: Rate: tachycardic Rhythm: regular rhythm GI: Inspection: Yes normal to inspection Neuro: General: patient oriented x3 and moves all extremities Cranial nerves: Yes Equal, round and reactive pupils present Cognition (Neuro): normal cognition Motor exam (neuro): 5/5 motor strength present throughout Sensory Exam: Normal double simultaneous stimulation for sensation Coordination: [id number] test normal Extrem: General: Yes normal to inspection, Yes full ROM and Yes capillary refill normal Psych: Appearance: grossly normal Mental Status: mental status grossly normal Affect: normal affect Attitude: cooperative Thought process: Normal thought process present Thought content: Normal thought content present Insight: Good insight present (Psych) Objective Data Labs CBC & Chem 7: 09/12/21 06:04 09/14/21 05:14 Labs: Laboratory Results - last 24 hr 09/13/21 09/13/21 09/13/21 08:35 08:35 16:22 Sodium 128 L Potassium 3.8 Chloride 96 Carbon Dioxide 21 L Anion Gap 15 BUN Creatinine Estim Creat Clear Calc Estimated GFR Random Glucose Calcium Total Bilirubin Direct Bilirubin AST ALT Alkaline Phosphatase Total Protein Albumin TSH Random Cortisol Stool Leukocytes, Qual NEGATIVE C. difficile Tox B Gene NEGATIVE 09/14/21 09/14/21 09/14/21 05:14 05:14 05:14 Sodium 131 L Potassium 3.4 Chloride 98 Carbon Dioxide 23 Anion Gap 13 BUN 2 L Creatinine 0.47 L Estim Creat Clear Calc 127.7 Estimated GFR > 60 Random Glucose 98 Calcium 8.4 Total Bilirubin 2.3 H Cancelled Direct Bilirubin 1.6 H Cancelled AST 272 H Cancelled ALT 131 H Cancelled Alkaline Phosphatase 167 H Cancelled Total Protein 5.9 L Cancelled Albumin 3.3 L Cancelled TSH 1.76 Random Cortisol Stool Leukocytes, Qual C. difficile Tox B Gene 09/14/21 05:14 Sodium Potassium Chloride Carbon Dioxide Anion Gap BUN Creatinine Estim Creat Clear Calc Estimated GFR Random Glucose Calcium Total Bilirubin Direct Bilirubin AST ALT Alkaline Phosphatase Total Protein Albumin TSH Random Cortisol 8.0 Stool Leukocytes, Qual C. difficile Tox B Gene Procedures Date of Service Date of Service: 09/14/21 Assessment & Plan Assessment and plan (1) Alcohol withdrawal: Status: Acute Plan 1, Euvolemic HypoNa: IADH and suspect low solute intake playing role as well given low Uosm and low BUN hypothyroid and adrena insuff r/o Good news is SNa is incr just on PO fuid restriction note that she is on drugs that can be assoc with siadh: SSRI and phenobabtial REC: cont to stress avoid excess PO fluids and avoid ETOH; repeat SNa in am if still inpt o/w in 1-2 days s outpt; encourage intake of solid foods to incr her osmotic load Time Spent With Patient Time: Total time spent is greater than 50% in coordination of care (as documented) at patient's floor/unit and/or counseling patient: Progress Note: Quality Stroke Does the patient have a stroke diagnosis?: No
[2021-09-14 11:24] VITALS: BP 105/77; PULSE 90; RESP 16; TEMP 36.6; O2SAT 98
--- NOTE | 2021-09-14 11:36 | CONS_ITS ---
DATE OF SERVICE: 09/13/2021 HISTORY OF PRESENT ILLNESS: I was asked to see patient to assist in evaluation and management of patient's hyponatremia as reflected by serum sodium that was 122 on admission on September 11. I was asked to see her today and her serum sodium this morning is 132, yesterday at 2 p.m. was 127. Her urine studies show on September 11, urine osmolality of 161, urine sodium of 30. I do see her serum osmolality today of 287. I do not see a TSH or cortisol level. In summary, she is a 41-year-old, who was admitted to the hospital on with rapid heart rate, feeling unwell, apparently had been drinking heavily for the past several months. Her hospital course has included IV fluids and her serum sodium has increased as noted. PAST MEDICAL HISTORY: Notable for alcohol abuse and anxiety. MEDICATIONS: Her home medications include Zoloft, melatonin, and vitamin D. Current meds are noted in the MAR. She has remained on Zoloft. ALLERGIES: SHE HAS ALLERGIES NOTED IN THE ELECTRONIC MEDICAL RECORD. SOCIAL HISTORY: She has a heavy alcohol intake history. She smokes cigarettes, denies illicit drug use. REVIEW OF SYSTEMS: Somewhat limited and as noted above. PHYSICAL EXAMINATION: VITAL SIGNS: Blood pressure 110/70 with the heart rate in the 80s. HEENT: Head is atraumatic and normocephalic. NECK: Supple. Mucous membranes are moist. LUNGS: Breath sounds bilaterally. CARDIAC: Regular rate and rhythm. ABDOMEN: Soft, nontender. Good bowel sounds. No CVA tenderness. EXTREMITIES: Shows no edema. LABORATORY DATA: As mentioned from today, sodium 132, potassium 4.7, chloride 98, bicarb 24, BUN 2, creatinine 0.53. SGOT and SGPT were 416 and 189 respectively. As mentioned, serum sodium is 122 on admission. Hemoglobin 10.8, hematocrit 30.8, white blood cell count 4.3, platelet count 173. IMPRESSION: Euvolemic hyponatremia in a patient with heavy alcohol intake event. 1. Euvolemic hyponatremia. This is most likely multifactorial including her heavy alcohol intake. She is on a selective serotonin reuptake inhibitor, which can be associated with syndrome of inappropriate antidiuretic hormone secretion. Her urine study suggests she may have low osmotic intake playing a significant role with a low BUN. Also, urine osmolality was fairly low at 161, would be supportive of a component of low osmotic intake. SUGGESTIONS: At this time include: 1. Obtain a TSH and an a.m. cortisol level. Need to avoid too rapid correction of her serum sodium. Goal is to not to let increase by more than 4 to 6 mEq for 24 hours. We will check a repeat sodium this afternoon and if it has gone up further, she may need gentle increase of p.o. fluid intake. 2. Of note, as you correct the potassium level, this often increases the serum sodium as well. We will follow the patient with the team. MD EFFIE Callaway/JOSE G / [phone]
--- NOTE | 2021-09-14 11:57 | MHC.CM.PN ---
EMR REVIEWED, CM MET W/PT AT BEDSIDE AND PT REPORTS SHE STILL FEELS SHAKY AND NOT YET READY FOR D/C, PT ALSO REPORTS SHE WOULD BE INTERESTED IN ETOH TX HOWEVER DOES NOT WANT TO GO TO [facility] AGAIN IT IS SO FAR AWAY, HOSPITALIST AWARE AND RECOVERY NURSE TO MEET W/PT, CM WILL CONT TO FOLLOW D/C NEEDS.
--- NOTE | 2021-09-14 13:34 | MHC.RECOVRN ---
This gag writer met w/ pt. Pt alert and oriented when entering room. This gag writer reviewed no female beds at [facility] today or tomorrow. Discussed plan of care upon discharge. Pt states not interested in other levels of treatment, not interested in other treatment facilities at this time. Pt identified not having a job and income as barrier currently. This gag writer discussed IOP, outpatient treatment, pt states not interested at this time. This gag writer and pt discussed mediation adherence, pt states plans to take Naltrexone daily, as pt was missing some doses before hospitalization. This gag writer offered [facility] referral, pt states will think about it. This gag writer to drop off list of Recovery Support meetings. CM aware.
--- NOTE | 2021-09-14 14:02 | PM.GIPN ---
Subjective Subjective Date of Service: 09/14/21 Interval History: tolerating diet no nausea or vomiting Critical Care Time (minutes): 0 Physical Exam Vital Signs: Vital Signs: Last Vital Signs Temp 97.9 F 09/14/21 11:24 Pulse 90 09/14/21 11:24 Resp 16 09/14/21 11:24 BP 105/77 09/14/21 11:24 Pulse Ox 98 09/14/21 11:24 O2 Del Method 09/14/21 11:24 BMI result Body Mass Index 22.4 GI: Other: abdomen is soft and nontender Objective Data Labs CBC & Chem 7: 09/12/21 06:04 09/14/21 05:14 Procedures Date of Service Date of Service: 09/14/21 Progress Note: A&P Assessment and plan (1) Alcohol withdrawal: Status: Acute Assessment and Plan: appears to be improving stool tests negative so far GI panel pending advised f/u for outpt colonoscopy when acute issues have stabilized. Time Spent With Patient Time: Total time spent is greater than 50% in coordination of care (as documented) at patient's floor/unit and/or counseling patient: Quality Stroke Does the patient have a stroke diagnosis?: No VTE Prior VTE?: No VTE Risk Level:: Medical - moderate - high VTE Device Contraindication: Treatment Not Indicated VTE Drug Contraindication: N/A - Med Ordered
[2021-09-14 15:21] LABS: Adenovirus F 40/41 Not Detected (Not Detect.); Astrovirus Not Detected (Not Detect.); Campylobacter Not Detected (Not Detect.); Cryptosporidium Not Detected (Not Detect.); Cyclospora cayetanensis Not Detected (Not Detect.); E. coli EAEC Not Detected (Not Detect.); E. coli EPEC Not Detected (Not Detect.); E. coli ETEC Not Detected (Not Detect.); E. coli STEC Not Detected (Not Detect.); Entamoeba histolytica Not Detected (Not Detect.); Giardia lamblia Not Detected (Not Detect.); Norovirus GI/GII Not Detected (Not Detect.); Plesiomonas shigelloides Not Detected (Not Detect.); Rotavirus A Not Detected (Not Detect.); Salmonella Not Detected (Not Detect.); Sapovirus Not Detected (Not Detect.); Shigella sp./EIEC Not Detected (Not Detect.); Vibrio Not Detected (Not Detect.); Vibrio Cholerae Not Detected (Not Detect.); Yersinia enterocolitica Not Detected (Not Detect.)
[2021-09-14 15:27] VITALS: BP 107/78; PULSE 85; RESP 16; TEMP 36.6; O2SAT 100
[2021-09-14] MEDS: Enoxaparin Sodium 40 MG/0.4 ML SYRINGE SUBCUT (17:02)
[2021-09-14 20:00] VITALS: BP 110/84; PULSE 90; RESP 16; TEMP 36.4; O2SAT 99
[2021-09-15] VITALS: BP 101/64; PULSE 94; RESP 18; TEMP 36.7; O2SAT 98
[2021-09-15 04:00] VITALS: BP 91/58; PULSE 75; RESP 18; TEMP 36.4; O2SAT 99
[2021-09-15] MEDS: ondansetron HCL 4 MG/2 ML VIAL IVPUSH (07:35)
[2021-09-15] MEDS: Famotidine 20 MG TABLET PO ×2 (07:38→20:31)
[2021-09-15] MEDS: Multivitamin TABLET 1 TAB PO (07:38)
[2021-09-15] MEDS: Sertraline HCL 50 MG TABLET PO (07:38)
[2021-09-15] MEDS: 0.9 % Sodium Chloride Flush 3 ML SYRINGE IVFLUSH ×3 (07:38→20:33)
[2021-09-15] MEDS: Loperamide HCl 2 MG CAPSULE PO ×3 (07:38→23:17)
[2021-09-15] MEDS: Cholecalciferol (Vitamin D3) 25 MCG TABLET PO (07:38)
[2021-09-15] MEDS: PHENobarbitaL 15 MG TABLET PO ×2 (07:38→20:31)
[2021-09-15] MEDS: Thiamine HCL 100 MG TABLET PO (07:38)
[2021-09-15] MEDS: Folic Acid 1 MG TABLET PO (07:38)
[2021-09-15 07:51] VITALS: BP 139/98; PULSE 100; RESP 18; TEMP 36.6; O2SAT 98
[2021-09-15 08:11] LABS: Hepatitis A Antibody IgM 0.38 Index (0-0.79); ~Hepatitis A Antibody IgM Nonreactive (Nonreactive)
--- NOTE | 2021-09-15 10:36 | MHC.RECOVRN ---
This teletypewriter operator met w/ pt, upon entering room, pt alert and oriented. This teletypewriter operator dropped off resource info for pt. Opportunity for questions. Pt verbalized understanding. CM aware.
[2021-09-15 11:42] VITALS: BP 125/85; PULSE 105; RESP 18; TEMP 36.6; O2SAT 98
--- NOTE | 2021-09-15 11:56 | MHC.CM.PN ---
SOULEYMANE CONTACTED [facility] 11:45AM [phone] PT TOLD HOSPITALIST THAT'S WHERE SHE WAS GOING, PER INTAKE DEPT THEY DO NOT HAVE A FEMALE ATS BED AND ARE UNSURE OF WHEN WILL BECOME AVAILABLE, CM MET W/RECOVERY NURSE WHO REPORTED THAT PT WAS GIVEN LIST OF MTGS AND DETOXES AND THAT PT DOES NOT SEEM MOTIVATED FOR TX, RECOVERY NURSE MET W/PT YESTERDAY AFTERNOON AND PT DECLINED ALL OTHER TYPES OF PROGRAMS AND PT DID NOT FOLLOW THROUGH WITH HER [facility] INTA[facility] APPT THAT WAS SET UP LAST ADMIT FOR 08/16/21. SOULEYMANE CONTACTED HOSPITALIST AND HOSPITALIST REPORTS HE WILL KEEP PT ONE MORE NIGHT AND THEN D/C HOME.
--- NOTE | 2021-09-15 13:41 | HO.PM.IMPN ---
Subjective Subjective Date of Service: 09/15/21 Interval History: alcohol withdrawal Review of Systems still has tremors, very anxious denies any chest pain, has some nausea. Physical Exam Vital Signs: Vital Signs: Last Vital Signs Temp 97.8 F 09/15/21 11:42 Pulse 105 H 09/15/21 11:42 Resp 18 09/15/21 11:42 BP 125/85 09/15/21 11:42 Pulse Ox 98 09/15/21 11:42 O2 Del Method 09/15/21 11:42 BMI result Body Mass Index 22.4 Appearing in no acute distress ?lung sounds are clear to auscultation ?heart regular rate rhythm, clear? S1, S2 ?positive bowel sounds, abdomen is soft, nontender ?neuro patient is alert x3, no focal deficits Objective Data Active Medications Acetaminophen (Acetaminophen 325 Mg Tablet) 650 mg PO Q6H PRN PRN Reason: Pain, Mild (Pain Scale 1-3) Enoxaparin Sodium (Enoxaparin Sodium 40 Mg/0.4 Ml Syringe) 40 mg SUBCUT Q24H [facility] Last Admin: 09/14/21 17:02 Dose: 40 mg Documented By: JEWEL Famotidine (Famotidine 20 Mg Tablet) 20 mg PO BID [facility] Last Admin: 09/15/21 07:38 Dose: 20 mg Documented By: JEWEL Folic Acid (Folic Acid 1 Mg Tablet) 1 mg PO DAILY [facility] Last Admin: 09/15/21 07:38 Dose: 1 mg Documented By: JEWEL Loperamide HCl (Loperamide Hcl 2 Mg Capsule) 2 mg PO Q8H [facility] Last Admin: 09/15/21 07:38 Dose: 2 mg Documented By: JEWEL Multivitamins/Vitamin C (Multivitamin Tablet) 1 tab PO DAILY [facility] Last Admin: 09/15/21 07:38 Dose: 1 tab Documented By: JEWEL Ondansetron HCl (Ondansetron Hcl 4 Mg/2 Ml Vial) 4 mg IVPUSH Q6H PRN PRN Reason: Nausea and Vomiting Last Admin: 09/15/21 07:35 Dose: 4 mg Documented By: JEWEL Pharmacy Consult (Consult Rx Etoh Phenob Po Only) 1 each MISCELLANE ONCE PRN; Protocol PRN Reason: Consult order Pharmacy Consult (Consult Rx Perform Med Rec) 1 each MISCELLANE ONCE PRN PRN Reason: Consult order Phenobarbital (Phenobarbital 15 Mg Tablet) 15 mg PO BID [facility]; Protocol Stop: 09/15/21 21:01 Last Admin: 09/15/21 07:38 Dose: 15 mg Documented By: JEWEL Phenobarbital (Phenobarbital 15 Mg Tablet) 15 mg PO DAILY [facility]; Protocol Stop: 09/17/21 09:01 Sertraline HCl (Sertraline Hcl 50 Mg Tablet) 50 mg PO DAILY [facility] Last Admin: 09/15/21 07:38 Dose: 50 mg Documented By: JEWEL Sodium Chloride (0.9 % Sodium Chloride Flush 3 Ml Syringe) 3 ml IVFLUSH QSHIFT [facility] Last Admin: 09/15/21 07:38 Dose: 3 ml Documented By: JEWEL Thiamine HCl (Thiamine Hcl 100 Mg Tablet) 100 mg PO DAILY [facility] Last Admin: 09/15/21 07:38 Dose: 100 mg Documented By: JEWEL Vitamin D (Cholecalciferol (Vitamin D3) 25 Mcg Tablet) 25 mcg PO DAILY [facility] Last Admin: 09/15/21 07:38 Dose: 25 mcg Documented By: JEWEL Labs CBC & Chem 7: 09/12/21 06:04 09/14/21 05:14 Labs: Laboratory Results - last 24 hr 09/11/21 09/14/21 16:38 13:26 Stl C. cayetanensis PCR Not Detected Stool Rotavirus A PCR Not Detected Stl Adenov F 40/41 PCR Not Detected Stool Astrovirus (PCR) Not Detected Stool Campylobacter PCR Not Detected Stool Cryptosporidium PCR Not Detected Stl Sh Tox Pr E STEC PCR Not Detected Stool E coli O157 PCR Not applicable Stl Enterotoxigenic E PCR Not Detected Stool EPEC (PCR) Not Detected Stool EAEC (PCR) Not Detected Stl E. histolytica PCR Not Detected Stool Giardia Lamblia PCR Not Detected Stl P. shigelloides PCR Not Detected Stool Salmonella PCR Not Detected Stool Sapovirus (PCR) Not Detected Stl Shigella/EIEC PCR Not Detected St Y.enterocolitica PCR Not Detected Stool Vibrio (PCR) Not Detected Stl Vibrio cholerae PCR Not Detected Stl Norovirus GI/GII PCR Not Detected Hepatitis A IgM Ab Nonreactive Assessment and Plan (1) Alcohol withdrawal: Status: Acute Plan 41 year old women admitted with alcohol related electrolyte imbalances Diarrhea imodium resolving neg stool studies abd ct neg for acute abnormality seen by GI, follow up as o/p for colonoscopy odonophagia resolved? likely from vomiting episodes at home does not have any swallow issues today as per patient Alcohol abuse with alcoholic ketoacidosis Anion gap 27, now closed high risk for withdrawal continue phenobarb protocol while inpatient thiamine, folic acid, MVI encourage food intake Hyponatremia. Resolved secondary to alcohol use nephrology following, stable from their standpoint stop fluids follow BMP Hypokalemia/hypomagnesemia. resolved secondary to alcohol abuse repleted follow BMP and replete as neccesary DVT prophylalaxis with Lovenox continued hospitalization for treatment of alcohol related electrolyte abnormalities and withdrawl symptoms Quality Stroke Does the patient have a stroke diagnosis?: No VTE Prior VTE?: No VTE Risk Level:: Medical - moderate - high VTE Device Contraindication: Treatment Not Indicated VTE Drug Contraindication: N/A - Med Ordered
[2021-09-15 15:13] VITALS: BP 112/80; PULSE 98; RESP 18; TEMP 36.2; O2SAT 99
[2021-09-15] MEDS: Enoxaparin Sodium 40 MG/0.4 ML SYRINGE SUBCUT (17:04)
[2021-09-15 18:38] VITALS: BP 119/82; PULSE 84; RESP 18; TEMP 36.4; O2SAT 99
[2021-09-16] VITALS: BP 97/61; PULSE 88; RESP 18; TEMP 36; O2SAT 98
[2021-09-16 04:00] VITALS: BP 88/59; PULSE 80; RESP 18; TEMP 36.1; O2SAT 97
[2021-09-16 07:42] VITALS: BP 90/64; PULSE 95; RESP 12; TEMP 37.2; O2SAT 97
[2021-09-16] MEDS: Famotidine 20 MG TABLET PO (08:30)
[2021-09-16] MEDS: Sertraline HCL 50 MG TABLET PO (08:30)
[2021-09-16] MEDS: 0.9 % Sodium Chloride Flush 3 ML SYRINGE IVFLUSH (08:31)
[2021-09-16] MEDS: Folic Acid 1 MG TABLET PO (08:31)
[2021-09-16] MEDS: Loperamide HCl 2 MG CAPSULE PO ×2 (08:31→16:51)
[2021-09-16] MEDS: PHENobarbitaL 15 MG TABLET PO (08:31)
[2021-09-16] MEDS: Cholecalciferol (Vitamin D3) 25 MCG TABLET PO (08:31)
[2021-09-16] MEDS: Thiamine HCL 100 MG TABLET PO (08:31)
[2021-09-16] MEDS: Multivitamin TABLET 1 TAB PO (08:31)
[2021-09-16 08:32] LABS: Anion Gap 12 (12-20); Blood Urea Nitrogen 3 mg/dL (9-16); Carbon Dioxide 26 mmol/L (22-29); Chloride 99 mmol/L (96-108); Creatinine Clr Calc Pharmacy 119.9; Estimated Glomerular Filt Rate > 60; Glucose Random 114 mg/dL (60-115); Potassium 3.7 mmol/L (3.3-5.1); Sodium 133 mmol/L (135-145)
[2021-09-16 10:54] VITALS: BP 104/63; PULSE 99; RESP 12; TEMP 36.2; O2SAT 96
--- NOTE | 2021-09-16 11:42 | PM.DS ---
DS: Providers Provider Date of Service: 09/16/21 Date of admission: 09/11/21 16:52 Primary care physician: Ollie Pulliam PA-C Consults: 09/11/21 13:34 Consult to Care Team Stat Comment: Reason for consultation: requesting detox 09/11/21 16:40 Consult to Nephrology Routine Consulting Provider: Simon Aiken Reason for consultation: hyponatremia Has provider been notified: No 09/13/21 11:14 Consult to Gastroenterology Routine Consulting Provider: Mark Lebron Reason for consultation: colitis, diverticulitis Has provider been notified: No DS: Diagnosis Discharge Diagnosis (1) Alcohol withdrawal: Status: Acute DS: Summary Hospital Course Hospital Course: 41 year old women presenting to the ED with? rapid heart rate and feeling unwell.? Apparently she relapsed, due to family and social issues, after not drinking for 3 months about a month ago and has been drinking about 7 minutes a day she last drank this morning.? She denies chest pain, shortness breath, loss of consciousness, nausea, vomiting, diarrhea. She has not been eating or drinking any other fluids other than alcohol. In the ER her sodium was noted to be 122 she did receive 1 L of IV fluid, potassium 2.6, she received IV potassium, anion gap 27, bicarb 20, magnesium 1.5.? She has been hemodynamically stable.? She was started on phenobarbital in the ER, given Ativan, Librium, Zofran.? She be admitted for further management and treatment alcoholic ketoacidosis and multiple electrolyte abnormalities. Hospital course: patient treated for alcohol withdrawal, diarrhea, electrolytic abnormalities - improved with supportive care- phenobarb for alcohol withdrawal. diarrhea thought to be probably viral related - C diff and stool studies negative, diarrhea resolved, p.r.n. loperamide can be used outpatient. Seen by GI and thought to be viral diarrhea. patient also has elevated LFTs/transaminitis / possible secondary to alcohol use and also has hepatic steatosis on CT: Liver function tests are improving, seen by GI -recommended to abstain from alcohol, monitor LFT out patiently. Hyponatremia: likely due to alcohol and decreased p.o. intake versus possible SIADH: patient was improving without fluid restriction, patient is Nephrology and advised fluid restriction 1.5 L a day - monitor BMP outpatient and further management outpatient. hypokalemia and hypomagnesemia probably related to alcohol use and diarrhea- repleted and improved. tolerating diet and going home. plan: encouraged for adequate p.o. intake, hydration keep fluid intake around 1.5 L a day. monitor BMP and LFT with PCP. abstain from alcohol use. currently decline outpatient follow-up with recovery nurse's referral. Above management discussed with the patient in detail length she understand and in agreement with the above plan, time spent 50 minutes and 50% time spent on counseling. Significant findings: As above. Procedures performed: None. Treatment and response: As above. Complications: None. Time Spent with Patient Time attestation: Total time spent providing and/or coordinating discharge services: Discharge coordination time: Greater than 30 minutes Quality: Safe Use of Opioids Does Pt have an Active Cancer Diagnosis on the Problem List?: No Quality: Stroke Does the patient have a stroke diagnosis?: No Physical Exam Vital Signs: Vital Signs: Last Vital Signs Temp 97.2 F 09/16/21 10:54 Pulse 99 09/16/21 10:54 Resp 12 09/16/21 10:54 BP 104/63 09/16/21 10:54 Pulse Ox 96 09/16/21 10:54 O2 Del Method 09/16/21 10:54 BMI result Body Mass Index 22.4 ? Appearing in no acute distress ?lung sounds are clear to auscultation ?heart regular rate rhythm, clear? S1, S2 ?positive bowel sounds, abdomen is soft, nontender ?neuro patient is alert x3, no focal deficits DS: Data Data Completed and Pending Completed studies during hospitalization [Text1]: Procedures Detoxification Services for Substance Abuse Treatment (07/29/21) Labs on day of discharge: Laboratory Results - last 24 hr 09/16/21 08:04 Sodium 133 L Potassium 3.7 Chloride 99 Carbon Dioxide 26 Anion Gap 12 BUN 3 L Creatinine 0.50 Estim Creat Clear Calc 119.9 Estimated GFR > 60 Random Glucose 114 Calcium 9.0 D Discharge Plan Discharge Patient Disposition: Home, Self-Care Discharge Diagnosis: alcohol withdrawal,diarrhae , electrolytic abnormalities Referrals: Ollie Pulliam PA-C [Primary Care Provider] - 1 Week Discharge Medications: New folic acid 1 mg Tablet 1 mg PO DAILY Qty: 30 0RF thiamine mononitrate (vit B1) 100 mg Tablet 100 mg PO DAILY Qty: 30 0RF Continued folic acid 1 mg tablet 1 mg PO DAILY 90 Days Qty: 90 1RF thiamine HCl (vitamin B1) [Vitamin B-1] 100 mg tablet 100 mg PO DAILY Qty: 90 0RF sertraline 25 mg Tablet 50 mg PO DAILY melatonin 5 mg Tablet 5 mg PO BEDTIME PRN (Reason: Sleep) loperamide 2 mg Capsule 2 mg PO Q4H PRN (Reason: Diarrhea) Qty: 10 0RF cholecalciferol (vitamin D3) 25 mcg (1,000 unit) Tablet 25 mcg PO DAILY naltrexone 50 mg tablet 50 mg PO DAILY Discharge Orders: Discharge Order (Routine); Ordered 09/16/21 Ordered By: Berta Gutiérrez Diet: Advance to usual diet Activity on Discharge: As tolerated Stand Alone Forms: Patient Portal Discharge page Other Ambulatory Orders: Basic Metabolic Panel (Routine) Timeframe: 1 Week Facility: [facility] - Location: Laboratory Ordered By: Berta Gutiérrez Liver Panel (Routine) Timeframe: 1 Week Facility: [facility] - Location: Laboratory Ordered By: Berta Gutiérrez Care Plan Goals: patient treated for alcohol withdrawal, diarrhea, electrolytic abnormalities - improved with supportive care. tolerating diet and going home. Health Concerns: encouraged for adequate p.o. intake, hydration keep fluid intake around 1.5 L a day. monitor BMP and LFT with PCP. abstain from alcohol use. Plan of Treatment: As above. Assessment: If patient condition worsen- go to nearest emergency room.
--- NOTE | 2021-09-16 13:18 | MHC.CM.PN ---
Addendum entered by Fide Pickard 09/16/21 15:37: PT SEEN BY PSYCHIATRY AND DECLINED ALL ASSISTANCE OFFERED. Original Note: CM MET WITH PT WHO HAS MANY REASONS WHY SHE DOES NOT FEEL READY TO DC SHE REPORTS SHE IS STILL SWEATY AND FEELS SOB WHEN WALKING SHE ALSO REPORTS SHE HAS NOT BEEN WALKED Q SHIFT HOWEVER SHE IS AMBULATING INDEPENDENTLY PT WAS WALKED WITH [facility] AND SCORES 97 WITH AMBULATION PT ACKNOWLEDGES THIS MAY BE ANXIETY RELATED PT WILL DC HOME TODAY WITH NO SERVICES PT TO ARRANGE TRANSPORT
--- NOTE | 2021-09-16 15:27 | PM.PSYCN ---
History of Present Illness Date of Service: 09/16/21 Chief Complaint: alcoholic ketoacidosis Reason for Consult: anxiety Requesting physician: Berta Gutiérrez Discussed with referring provider: Yes Sources of Information: patient interviewed, chart reviewed and crisis/core team assessment reviewed HPI Narrative: Patient is a 41-year-old single female, admitted for alcohol withdrawals. Patient has depression/anxiety, currently treated by primary care provider with sertraline. She had expressed anxiety regarding returning home, lives by self with 2 cats. Psychiatry consult service asked to meet with patient regarding anxiety. Patient was sitting up in bed, engageable upon approach. Appropriately groomed, wearing hospital garb. When asked what her concern was, she stated that ?I have to go home today, and I do not feel ready ?. She does acknowledge that her CIWA scores are low, chart shows scale of 1 today. She describes feeling ?sweaty, shaking ?. She states that she had been drinking 7-10 nips of hard liquor daily for over a month prior to presentation at hospital. She states that before that she had been doing very well, and has actually been sober for up to 9 months. She states that she feels shaky when she is out of bed walking, and that she has some discomfort under her left breast. She states that she has been medically cleared, but she is worried. She did acknowledge that it could possibly be anxiety. She reports history of anxiety and depression. States that she takes Zoloft. Reports that she was taking 25 mg daily, but had recently been increased to 50 mg several months ago. The eyes any SI/HI. Perceptual disturbances. States that she feels safe at home. She does identify her mother as a supportive person she can speak with, who lives locally. She also has a sister that she speaks frequently with. She is involved in alcoholics anonymous via zoom meetings. She is currently a client at [facility], and has had Vivitrol and oral naltrexone. She did not appear to be in any type of withdrawals, and denies any cravings at this time. We discussed increasing sertraline, she would prefer to wait. She is interested in obtaining a therapist. She was provided with multiple resources, including clinics for or therapy and medications, a list of [facility] and other treatment programs, as well as phone number for [facility]. She was advised to call the center and discuss a referral to [facility]. She stated that she would do so. Patient appeared to calm during encounter, and did not display any symptoms of anxiety as conversation progressed. She was encouraged to reach out to her sober friends and her supportive family members once she is home. She stated that she would do so. Past Psychiatric History: IOP Medical Evaluation Reviewed: Yes Personal & Social History: Lives by self Has 2 cats Unemployed Review of Systems Review of Systems Constitutional: Reports excessive sweating and Reports other ( shaky ) Eyes: Reports no additional eye complaints Reports Normal hearing present Cardiovascular: Reports no additional cardiovascular complaints Respiratory: Reports no additional respiratory complaints Gastrointestinal: Reports no additional gastrointestinal complaints Genitourinary: Reports no additional female genitourinary complaints Musculoskeletal: Reports no additional musculoskeletal complaints Reports Normal hearing present Psychiatric: Reports anxiety Endocrine: Reports excessive sweating Hematologic/Lymphatic: Reports no additional hematologic/lymphatic complaints Allergic/Immunologic: Reports no additional allergic/immunologic complaints [facility] Medical History Alcohol abuse Anxiety Surgical History No pertinent past surgical history Social History: Lives by self, with 2 cats. Currently not working. Has a daughter. Substance History: Alcohol use disorder. Prior to hospitalization had been drinking 7-10 nips of hard liquor daily for over 1 month. Has been hospitalized in past for alcohol withdrawals. Diagnostics Vital Signs (24Hr): Vital Signs - 24 hr 09/15/21 18:38 09/16/21 00:00 09/16/21 04:00 Temperature 97.5 F 96.8 F 96.9 F Pulse Rate 84 88 80 Respiratory Rate 18 18 18 Blood Pressure 119/82 97/61 88/59 L Pulse Oximetry 99 98 97 Oxygen Delivery Method Room Air Room Air Room Air 09/16/21 07:42 09/16/21 10:54 Temperature 98.9 F 97.2 F Pulse Rate 95 99 Respiratory Rate 12 12 Blood Pressure 90/64 104/63 Pulse Oximetry 97 96 Oxygen Delivery Method Room Air Room Air BMI result Body Mass Index 22.4 Labs Results: 09/12/21 06:04 09/16/21 08:04 Labs: Laboratory Results - last 48 hr 09/11/21 09/16/21 16:38 08:04 Sodium 133 L Potassium 3.7 Chloride 99 Carbon Dioxide 26 Anion Gap 12 BUN 3 L Creatinine 0.50 Estim Creat Clear Calc 119.9 Estimated GFR > 60 Random Glucose 114 Calcium 9.0 D Hepatitis A IgM Ab Nonreactive Imaging Radiology Impressions: ITS Impressions Abdomen/Pelvis CT 09/13/21 12:11 IMPRESSION: Fluid-filled loops of small bowel could be seen with gastroenteritis or diarrhea. There is also air-fluid level in the rectum which could be seen with diarrhea. Redemonstration of hepatomegaly and marked hepatic steatosis. Moderate sigmoid diverticulosis but with no significant associated fat stranding to suspect acute diverticulitis. Mental Status Exam Mental Status Exam Narrative: Well-developed, thin female, in NAD. Anxious mood an affect. No evidence of alcohol withdrawals observed. Eye contact within normal limits, alert and oriented x4. Appropriately groomed. No involuntary movements noted, motor activity calm, posture within normal limits. Foster in behavior were anxious, cooperative. Speech was fluent, unimpaired. Cognition and memory intact. Thought process and associations were linear, goal directed. Thought content normal, future oriented. No evidence of any type of delusional thoughts, no hallucinations. No SI/HI. Appeared to be reliable historian. Judgment and insight fair but adequate. Ambulation not observed, no cogwheeling or rigidity noted. Medications Medications Current Medications Acetaminophen (Acetaminophen 325 Mg Tablet) 650 mg PO Q6H PRN PRN Reason: Pain, Mild (Pain Scale 1-3) Enoxaparin Sodium (Enoxaparin Sodium 40 Mg/0.4 Ml Syringe) 40 mg SUBCUT Q24H [facility] Last Admin: 09/15/21 17:04 Dose: 40 mg Famotidine (Famotidine 20 Mg Tablet) 20 mg PO BID [facility] Last Admin: 09/16/21 08:30 Dose: 20 mg Folic Acid (Folic Acid 1 Mg Tablet) 1 mg PO DAILY [facility] Last Admin: 09/16/21 08:31 Dose: 1 mg Loperamide HCl (Loperamide Hcl 2 Mg Capsule) 2 mg PO Q8H [facility] Last Admin: 09/16/21 08:31 Dose: 2 mg Multivitamins/Vitamin C (Multivitamin Tablet) 1 tab PO DAILY [facility] Last Admin: 09/16/21 08:31 Dose: 1 tab Ondansetron HCl (Ondansetron Hcl 4 Mg/2 Ml Vial) 4 mg IVPUSH Q6H PRN PRN Reason: Nausea and Vomiting Last Admin: 09/15/21 07:35 Dose: 4 mg Pharmacy Consult (Consult Rx Etoh Phenob Po Only) 1 each MISCELLANE ONCE PRN; Protocol PRN Reason: Consult order Pharmacy Consult (Consult Rx Perform Med Rec) 1 each MISCELLANE ONCE PRN PRN Reason: Consult order Phenobarbital (Phenobarbital 15 Mg Tablet) 15 mg PO DAILY [facility]; Protocol Stop: 09/17/21 09:01 Last Admin: 09/16/21 08:31 Dose: 15 mg Sertraline HCl (Sertraline Hcl 50 Mg Tablet) 50 mg PO DAILY [facility] Last Admin: 09/16/21 08:30 Dose: 50 mg Sodium Chloride (0.9 % Sodium Chloride Flush 3 Ml Syringe) 3 ml IVFLUSH QSHIFT [facility] Last Admin: 09/16/21 08:31 Dose: 3 ml Thiamine HCl (Thiamine Hcl 100 Mg Tablet) 100 mg PO DAILY [facility] Last Admin: 09/16/21 08:31 Dose: 100 mg Vitamin D (Cholecalciferol (Vitamin D3) 25 Mcg Tablet) 25 mcg PO DAILY [facility] Last Admin: 09/16/21 08:31 Dose: 25 mcg Allergies Allergies Allergy/AdvReac Type Severity Reaction Status Date / Time Sulfa (Sulfonamide Allergy Mild RASH Verified 09/11/21 12:40 Antibiotics) [SULFA (SULFONAMIDE ANTIBIOTICS)] magnesium AdvReac Diarrhea Verified 09/11/21 12:40 Assessment & Plan Assessment & Plan (1) Alcohol use disorder, severe, dependence: Status: Acute Code(s): F10.20 - Alcohol dependence, uncomplicated Assessment and Plan[facility] and is preparing for discharge from alcohol withdrawals. Patient is actively involved in alcoholics anonymous through online zoom meetings. Patient was encouraged to attend is a meeting upon discharge, and to reach out to others in the program. No evidence of any type of withdrawals at this time, no cravings at this time. (2) SENA (generalized anxiety disorder): Status: Acute Code(s): F41.1 - Generalized anxiety disorder Assessment and Plan: Patient reports a history of anxiety and depression. Is interested in therapy. Resources for therapist provided, as well as partial hospitalization and IOP programs. Patient was encouraged to call [facility], where she is listed as a client, and ask for referral to [facility]. She stated that she would do so. (3) Depression: Status: Acute Code(s): F32.A - Depression, unspecified Assessment and Plan: Patient denies any thought of harm to self or others, no safety concerns. Patient currently prescribed sertraline 50 mg. We discussed increasing dose to 75 mg. Patient stated that she would prefer to wait and do this as outpatient with her own provider. Plan 1. Patient provided with multiple resources regarding alcohol use disorder and depression/anxiety. I have shared this with Dr. Berta Gutiérrez Thank you for this consultation. I spent ___45___ minutes with the patient and/or on the patient floor today, greater than?50% of which was spent counseling/coordinating care. Patient educated on: diagnosis, medication risk/benefits, substance abuse and therapeutic strategies Informed Consent: understands
[2021-09-16 16:00] VITALS: BP 132/94; PULSE 105; RESP 16; TEMP 36.8; O2SAT 97
[2021-09-16] MEDS: Enoxaparin Sodium 40 MG/0.4 ML SYRINGE SUBCUT (16:52)
== END 2021-09-16 17:15 | disposition home or self-care (01) | DRG 426 ==
LOC: HO.ED 13:57 → HO.EDOVER 16:58 → HO.S3 19:21
PROVIDERS: Internal Medicine Gastroenterology; Internal Medicine Nephrology; Physician Assistant Medical; Admitting Provider Nurse Practitioner Acute Care; Emergency Provider Emergency Medicine; PCP Physician Assistant; Visit Provider Internal Medicine
DX: E22.2 Syndrome of inappropriate secretion of antidiuretic hormone (principal); E87.2 Acidosis; A08.4 Viral intestinal infection, unspecified; F10.139 Alcohol abuse with withdrawal, unspecified; R13.10 Dysphagia, unspecified; F17.210 Nicotine dependence, cigarettes, uncomplicated; F32.A Depression, unspecified; F41.1 Generalized anxiety disorder; Z71.6 Tobacco abuse counseling; Z71.41 Alcohol abuse counseling and surveillance of alcoholic; E83.42 Hypomagnesemia; Z56.0 Unemployment, unspecified; E87.6 Hypokalemia; Z20.822 Contact with and (suspected) exposure to COVID-19; Z88.2 Allergy status to sulfonamides; Z79.899 Other long term (current) drug therapy
CPT/HCPCS: 36415; 74176; 80048; 80051; 80076; 82077; 82436; 82533; 83690; 83735; 83930; 83935; 84133; 84300; 84443; 85025; 86704; 86706; 86709; 86803; 87340; 87493; 87507; 87635; 89055; 96361; 96365; 96366; 96367; 96375; 99285; J1650; J1956; J2405; J3475

== ENCOUNTER 2021-11-10 09:20 | Emergency (ER) | payer OTHER, SELFPAY ==
--- NOTE | ~2021-11-10 | CT_ITS ---
EXAMINATION: CT ABDOMEN AND PELVIS WITH CONTRAST CLINICAL INFORMATION: Vomiting, recent pelvic abscess. COMPARISON: None TECHNIQUE: Multidetector volumetric images were obtained from the superior aspect of the liver through the pubic symphysis following administration 85 mL of Omnipaque 350 intravenous contrast. Sagittal and coronal reformatted images were obtained on the technologist's workstation. Oral contrast: No This CT examination was performed using dose optimization techniques as appropriate, variously including the following: *Automated exposure control *Adjustment of mA and/or kV according to patient size (this includes techniques or standardized protocols for targeted exams where dose is matched to indication/reason for exam; i.e. extremities or head) *Use of iterative reconstruction technique DLP: 388 mGy-cm FINDINGS: LUNG BASES: The visualized lung bases are unremarkable. LIVER, GALLBLADDER, AND BILIARY TREE: Hepatic steatosis without focal abnormality. Normal variant extension of the left lobe into the left upper quadrant. PANCREAS: Unremarkable. SPLEEN: Unremarkable. ADRENAL GLANDS: Unremarkable. KIDNEYS AND URETERS: Left kidney small, interpolar exophytic cyst measuring 1.6 cm (image 64, series 5). No nephrolithiasis or hydroureteronephrosis. BLADDER: Unremarkable. GASTROINTESTINAL TRACT: The stomach is unremarkable. The small bowel shows several dilated proximal loops with air-fluid levels measuring up to 3.8 cm (image 16, series 5). A transition point is seen to the left of midline in the left midabdomen (appeals representative image 55, series 3). The remainder the small bowel is of normal caliber. The terminal ileum is unremarkable. No evidence for acute appendicitis. The colon shows mild diverticulosis most pronounced from the distal aspect of the transverse colon to the sigmoid colon. Mild mural thickening and pericolonic infiltrative changes are seen in the proximal to mid one third of the sigmoid colon without evidence for perforation or abscess formation. The rectum is unremarkable. ABDOMINAL WALL: No significant hernia is appreciated. LYMPH NODES: No lymphadenopathy. VASCULAR: Unremarkable. PELVIC VISCERA: Anteverted/anteflexed uterus. The inferior margin of the abnormal sigmoid colon abuts the superior margin of the left fallopian tube and ovary with loss of fat plane. Mild adjacent infiltrative changes are seen. No right adnexal abnormality. OSSEOUS STRUCTURES: Unremarkable. CT/CT abdomen pelvis w IV con IMPRESSION: 1. Mild acute proximal to mid sigmoid diverticulitis without evidence for perforation or abscess formation. This abuts the subjacent left fallopian tube/ovary with loss of fat plane, but no definitive fistulous tract is seen. Mild adjacent fluid is likely reactive to this process. 2. Mild dilatation of several proximal small bowel loops with transition point in the mid abdomen as detailed above. A definitive obstructing mass is not seen. This could be secondary to a band or adhesion, but was not seen previously. Short-term monitoring with supine and upright abdominal radiographs is recommended as clinically indicated to assess for change. These findings worsen, repeat CT scan is recommended. 2. Hepatic steatosis.
[2021-11-10 09:25] VITALS: BP 132/84; PULSE 118; RESP 16; TEMP 36.9; O2SAT 100; BMI 20.7
--- NOTE | 2021-11-10 09:35 | ED.ABDPAIN ---
HPI - Abdominal Pain General Chief Complaint: Abdominal Pain Stated Complaint: abd pain low bp Time Seen by Provider: 11/10/21 09:31 Source: patient and old records reviewed Mode of arrival: ambulatory Limitations: no limitations History of Present Illness HPI narrative: 41 yo female with hx of ETOH abuse, anxiety, just admitted to [facility] after transfer from [facility] with pelvic abscess that required CT guided drainage - DC one week ago with augmentin (didn't take due to allergy) and ciprofloxacin which she finished 3 days ago. She saw her PCP this AM and was sent over due to 5x diarrhea episodes per day, abdominal pain, weakness, anorexia and BP was 90/60. Patient denies a hx of colitis in the past. MD elicited complaint: abdominal pain Pertinent past history: diverticulitis Onset (ago): day(s) (diarrhea while in hospital around 10/31) Pain Consistency: intermittent Location: diffuse Severity: moderate Quality: cramping, aching and fullness Radiation: none Migration to: no migration Exacerbating factors: eating Relieving factors: nothing Context: recent antibiotic use and recent surgery/procedure Associated symptoms: nausea and other (anorexia, weight loss) Related Data Home Medications Medication Instructions Recorded Confirmed naltrexone 50 mg tablet 50 mg PO DAILY 04/20/21 09/11/21 melatonin 5 mg tablet 5 mg PO BEDTIME PRN Sleep 07/29/21 09/11/21 cholecalciferol (vitamin D3) 25 25 mcg PO DAILY 09/11/21 09/11/21 mcg (1,000 unit) tablet furosemide 40 mg tablet 40 mg PO DAILY 11/10/21 hyoscyamine sulfate 0.125 mg 0.125 mg PO Q4H PRN cramps 11/10/21 sublingual tablet morphine 15 mg tablet,extended 15 mg PO Q12H 11/10/21 release ondansetron 4 mg disintegrating 4 mg PO Q8H PRN 11/10/21 tablet Previous Rx's Medication Instructions Recorded folic acid 1 mg tablet 1 mg PO DAILY #30 tabs 09/16/21 sertraline 25 mg tablet 50 mg PO DAILY #90 tabs 11/04/21 thiamine mononitrate (vit B1) 100 100 mg PO DAILY #30 tabs 11/04/21 mg tablet ciprofloxacin HCl 500 mg tablet 500 mg PO BID 7 days #14 tabs 11/10/21 folic acid 1 mg tablet 1 mg PO DAILY #30 tabs 11/10/21 metronidazole 500 mg tablet 500 mg PO Q8H 7 days #21 tabs 11/10/21 vitamin B complex (B 1 tab PO DAILY #30 tabs 11/10/21 Complex-Vitamin B12 tablet) Allergies Allergy/AdvReac Type Severity Reaction Status Date / Time amoxicillin [From Augmentin] Allergy Intermediate Abdominal Verified 11/10/21 14:24 Pain clavulanic acid Allergy Intermediate Abdominal Verified 11/10/21 14:24 [From Augmentin] Pain Sulfa (Sulfonamide Allergy Mild RASH Verified 11/10/21 14:24 Antibiotics) [SULFA (SULFONAMIDE ANTIBIOTICS)] magnesium AdvReac Diarrhea Verified 11/10/21 14:24 Review of Systems Review of Systems Constitutional : pos Weight loss, No Fever, No Chills, pos anorexia ENT/Mouth : No sore throat, No Rhinorrhea Eyes: No Swelling, No Redness Cardiovascular : No Chest Pain, No SOB, No edema Respiratory : No Cough, No Sputum, No Wheezing Gastrointestinal : Positive Nausea, no Vomiting, positive Diarrhea, positive abdominal Pain, No Hematochezia, No Melena Genitourinary : No Dysuria, No Urinary Frequency, No Hematuria, No Urgency Musculoskeletal : No joint pain, No Myalgias, No Joint Swelling Skin : No Skin Lesions, No rash Neuro : pos Weakness, No Numbness, No Dizziness, No Headache Psych : No Anxiety/Panic, No Depression Heme/Lymph: No Bruising, No Lymphadenopathy Endocrine : No Polyuria, No Polydipsia All other systems reviewed and are negative. [facility] Past Medical History Attestation statement: The following information was validated with the patient. Medical History (Updated 11/10/21 @ 14:27 by Ollie Pulliam PA-C) Alcohol abuse Anxiety Diverticulitis Pelvic abscess in female Surgical History No pertinent past surgical history Family History Family History Father Medical history unknown Mother Medical history unknown Paternal Grandfather Cancer Sister Epilepsy Daughter In good health Son In good health Social History Social History Household Members: None Housing: Apartment Do you presently have visiting nurse or other home services: No Alcohol intake: current Alcohol intake frequency: 3 or more drinks per day Alcohol type: hard liquor Patient Tobacco Use Status: Former Tobacco user Tobacco use type: Cigarette e-Cigarette/Vaping Use: Former Use Second Hand Smoke Exposure: No Advance Directives: Yes Advance Directives on File: Yes Advance Directives Date on File: 01/25/21 service: No Current occupational status: unemployed Cognitive needs: No Hearing needs: No Vision needs: No Physical Exam ED Vital Signs: Vital Signs - 24 hr 11/10/21 09:25 11/10/21 10:04 Temperature 98.5 F 98.6 F Pulse Rate 118 H 81 Respiratory Rate 16 16 Blood Pressure 132/84 106/68 Pulse Oximetry 100 100 Oxygen Delivery Method Room Air Room Air BMI result Body Mass Index 20.7 Appearance: Alert. Oriented X3. No acute distress. Anxious Eyes: Pupils equal, round and reactive to light. ENT: Pharynx mildly dry MM Neck: Normal inspection. Neck supple. CVS: Normal heart rate and rhythm. Pulses normal. Respiratory: No respiratory distress. Breath sounds normal. Abdomen: Soft and mildly diffuse ttp no rebound or guarding Buttocks: R drain site is c/d/i no drainage, it is closed Skin: Skin warm and dry. Normal skin color. Normal skin turgor. Extremities: No lower extremity edema. No calf ttp Neuro: Oriented X 3. No motor deficit. No sensory deficit. Course Course Course Narrative: E. Coli bacteremia at [facility] abscess was 7.2 x 4 x 4 cm around L ovary, IUD was removed as well. STI testing negative. [employer] felt it was diverticular and not TOA. 10/31 CT scan negative for residual fluid collection. US of legs negative for DVT. message sent to Dr. Mary mag slightly low but given allergy patient will not take magnesium doubt c diff discussed with surgery - mild likely sequela given diarrhea doubt SBO - continue abx for additional weak BP normal in ED multiple IV sticks in someone with improving disease, afebrile, no vomiting, no rebound on abdominal exam and she is going to go home - will hold last lactic acid and cultures I do not think she is bacteremic at this time and I believe her lactic acid is related to dehydration - she was stuck multiple times and is fine with this. patient aware of risks of flagyl with ETOH and states she is not drinking and has no concerns for it MDM - Abdominal Pain MDM Narrative Medical decision making narrative: 41 yo female with hx of anxiety, ETOH abuse, recent prolonged stay at [facility] for pelvic abscess requiring drain s/p course of cipro (couldn't complete augmentin) comes in for 1+ week of abdominal pain and diarrhea. At this time will need basic labs, cultures, c diff study if possible. CT scan for colitis, IVF and IV morphine for pain. Dispo per results and findings. Lab Data Result diagrams: 11/10/21 09:59 11/10/21 10:21 Labs: Lab Results 11/10/21 11/10/21 11/10/21 Range/Units 09:59 09:59 09:59 WBC 5.7 (4.8-10.8) X10*3/uL RBC 3.86 L (4.20-5.50) X10*6/uL Hgb 11.9 L (12.0-16.0) g/dl Hct 37.3 D (37.0-47.0) % MCV 96.6 (80.0-98.0) fL MCH 30.8 (27.0-33.0) pg MCHC 31.9 (31.0-35.0) g/dl RDW 14.2 (11.0-16.0) % Plt Count 541 H D (160-400) X10*3/uL MPV 9.6 (9.4-12.3) fL Immature Gran % (Auto) 0.2 (0.0-0.4) % Neut % (Auto) 56.5 (45-73) % Lymph % (Auto) 29.9 (20-40) % [place] % (Auto) 9.3 (2-11) % Eos % (Auto) 3.2 (0-4) % Baso % (Auto) 0.9 (0-2) % Lymph # (Auto) 1.7 (1.2-4.9) X10*3/uL [place] # (Auto) 0.5 (0.1-1.2) X10*3/uL Eos # (Auto) 0.2 (0.0-0.4) X10*3/uL Baso # (Auto) 0.1 (0.0-0.2) X10*3/uL Abs Immat Gran (auto) 0.01 (0.00-0.03) X10*3/uL Absolute Neuts (auto) 3.2 (2.0-8.3) x10*3/uL Absolute Nucleated RBC 0.000 (0.0-0.012) X10*3/uL Nucleated RBC % (auto) 0.0 (0.0-0.2) /100WBC Sodium (135-145) mmol/L Potassium (3.3-5.1) mmol/L Chloride (96-108) mmol/L Carbon Dioxide (22-29) mmol/L Anion Gap (12-20) BUN (9-16) mg/dL Creatinine (0.5-1.4) mg/dL Estim Creat Clear Calc Estimated GFR Random Glucose (60-115) mg/dL Lactic Acid 2.4 H* (0.5-2.0) mmol/L Calcium (8.4-10.2) mg/dL Magnesium (1.6-2.6) mg/dL Total Bilirubin (0.0-1.0) mg/dL Direct Bilirubin (0.0-0.5) mg/dL AST (5-31) U/L ALT (0-31) U/L Alkaline Phosphatase (39-117) U/L C-Reactive Protein (< or = 0.50) mg/dL Total Protein (6.5-8.0) g/dL Albumin (3.5-5.0) g/dL Lipase (8-78) U/L Beta HCG, Quant mIU/mL Urine Color Urine Appearance Urine pH (5.0-9.0) Ur Specific [place] (1.005-1.025) Urine Protein (Neg-Trace) mg/dL Urine Glucose (UA) (Negative) mg/dL Urine Ketones (Negative) mg/dL Urine Blood (Negative) Urine Nitrite (Negative) Ur Leukocyte Esterase (Negative) Urine RBC (0-2) /HPF Urine WBC (0-5) /HPF Ur Squamous Epith Cells (0-2) /HPF Urine Bacteria (None Seen) Hyaline Casts (0-2) /LPF Ethyl Alcohol mg/dL COVID-19 (JABARI) Negative (Negative) COVID-19 Clin Com See Note 11/10/21 11/10/21 Range/Units 10:21 12:00 WBC (4.8-10.8) X10*3/uL RBC (4.20-5.50) X10*6/uL Hgb (12.0-16.0) g/dl Hct (37.0-47.0) % MCV (80.0-98.0) fL MCH (27.0-33.0) pg MCHC (31.0-35.0) g/dl RDW (11.0-16.0) % Plt Count (160-400) X10*3/uL MPV (9.4-12.3) fL Immature Gran % (Auto) (0.0-0.4) % Neut % (Auto) (45-73) % Lymph % (Auto) (20-40) % [place] % (Auto) (2-11) % Eos % (Auto) (0-4) % Baso % (Auto) (0-2) % Lymph # (Auto) (1.2-4.9) X10*3/uL [place] # (Auto) (0.1-1.2) X10*3/uL Eos # (Auto) (0.0-0.4) X10*3/uL Baso # (Auto) (0.0-0.2) X10*3/uL Abs Immat Gran (auto) (0.00-0.03) X10*3/uL Absolute Neuts (auto) (2.0-8.3) x10*3/uL Absolute Nucleated RBC (0.0-0.012) X10*3/uL Nucleated RBC % (auto) (0.0-0.2) /100WBC Sodium 140 (135-145) mmol/L Potassium 4.2 (3.3-5.1) mmol/L Chloride 106 (96-108) mmol/L Carbon Dioxide 24 (22-29) mmol/L Anion Gap 14 (12-20) BUN 3 L (9-16) mg/dL Creatinine 0.50 (0.5-1.4) mg/dL Estim Creat Clear Calc 119.9 Estimated GFR > 60 Random Glucose 89 (60-115) mg/dL Lactic Acid (0.5-2.0) mmol/L Calcium 8.7 (8.4-10.2) mg/dL Magnesium 1.5 L (1.6-2.6) mg/dL Total Bilirubin 0.5 (0.0-1.0) mg/dL Direct Bilirubin 0.3 (0.0-0.5) mg/dL AST 45 H D (5-31) U/L ALT 22 (0-31) U/L Alkaline Phosphatase 91 D (39-117) U/L C-Reactive Protein 0.26 (< or = 0.50) mg/dL Total Protein 6.2 L (6.5-8.0) g/dL Albumin 3.2 L (3.5-5.0) g/dL Lipase 13 (8-78) U/L Beta HCG, Quant < 2 mIU/mL Urine Color Yellow Urine Appearance Clear Urine pH 7.5 (5.0-9.0) Ur Specific [place] 1.020 (1.005-1.025) Urine Protein Negative (Neg-Trace) mg/dL Urine Glucose (UA) Negative (Negative) mg/dL Urine Ketones Negative (Negative) mg/dL Urine Blood Negative (Negative) Urine Nitrite Negative (Negative) Ur Leukocyte Esterase Trace H (Negative) Urine RBC 0-2 (0-2) /HPF Urine WBC 0-5 (0-5) /HPF Ur Squamous Epith Cells 0-2 (0-2) /HPF Urine Bacteria None Seen (None Seen) Hyaline Casts 0-2 (0-2) /LPF Ethyl Alcohol < 10 mg/dL COVID-19 ([facility]ABARI) (Negative) COVID-19 Clin Com Discharge Plan Discharge Clinical Impression: Hypomagnesemia, Acute dehydration, Diverticulitis Patient Disposition: Home, Self-Care Instructions: Diverticulitis (ED), Dehydration (ED), Diverticulitis Diet (ED), Hypomagnesemia (ED) Additional Instructions: return to ED for any worsening symptoms or concerns return for fevers, worsening pain, vomiting, inability to have a bowel movement or pass gas. Please follow up with a surgeon as planned through [facility]. Touch base with your primary care doctor this week. Prescriptions: New ciprofloxacin HCl 500 mg tablet 500 mg PO BID 7 Days Qty: 14 0RF metronidazole 500 mg tablet 500 mg PO Q8H 7 Days Qty: 21 0RF folic acid 1 mg tablet 1 mg PO DAILY Qty: 30 0RF vitamin B complex [B Complex-Vitamin B12] Tablet 1 tab PO DAILY Qty: 30 0RF No Action sertraline 25 mg tablet 50 mg PO DAILY Qty: 90 1RF thiamine mononitrate (vit B1) 100 mg tablet 100 mg PO DAILY Qty: 30 0RF melatonin 5 mg Tablet 5 mg PO BEDTIME PRN (Reason: Sleep) cholecalciferol (vitamin D3) 25 mcg (1,000 unit) Tablet 25 mcg PO DAILY folic acid 1 mg Tablet 1 mg PO DAILY Qty: 30 0RF naltrexone 50 mg tablet 50 mg PO DAILY furosemide 40 mg tablet 40 mg PO DAILY morphine 15 mg tablet extended release 15 mg PO Q12H ondansetron 4 mg tablet,disintegrating 4 mg PO Q8H PRN hyoscyamine sulfate 0.125 mg tablet, sublingual 0.125 mg PO Q4H PRN (Reason: cramps)
[2021-11-10 10:03] LABS: MANUAL DIFF FLAG NO
[2021-11-10 10:04] VITALS: BP 106/68; PULSE 81; RESP 16; TEMP 37; O2SAT 100
[2021-11-10 10:05] LABS: Basophils Absolute Auto 0.1 X10*3/uL (0.0-0.2); Basophils Percent Auto 0.9 % (0-2); Eosinophils Absolute Auto 0.2 X10*3/uL (0.0-0.4); Eosinophils Percent Auto 3.2 % (0-4); Hematocrit 37.3 % (37.0-47.0); Hemoglobin 11.9 g/dl (12.0-16.0); Imm Gran Abs Auto 0.01 X10*3/uL (0.00-0.03); Imm Gran Pct Auto 0.2 % (0.0-0.4); Lymphocytes Absolute Auto 1.7 X10*3/uL (1.2-4.9); Lymphocytes Percent Auto 29.9 % (20-40); Mean Corpuscular HGB Conc 31.9 g/dl (31.0-35.0); Mean Corpuscular Hemoglobin 30.8 pg (27.0-33.0); Mean Corpuscular Volume 96.6 fL (80.0-98.0); Mean Platelet Volume 9.6 fL (9.4-12.3); Monocytes Absolute Auto 0.5 X10*3/uL (0.1-1.2); Monocytes Percent Auto 9.3 % (2-11); Neutrophils Absolute Auto 3.2 x10*3/uL (2.0-8.3); Neutrophils Percent Auto 56.5 % (45-73); Platelet Count 541 X10*3/uL (160-400); Red Blood Count 3.86 X10*6/uL (4.20-5.50); Red Cell Distribution Width 14.2 % (11.0-16.0); White Blood Count 5.7 X10*3/uL (4.8-10.8)
[2021-11-10] MEDS: Ketorolac Tromethamine 15 MG/ML VIAL 30 MG IVPUSH (10:06)
[2021-11-10] MEDS: Morphine Sulfate 4 MG/ML CARTRIDGE IVPUSH (10:09)
[2021-11-10] MEDS: ondansetron HCL 4 MG/2 ML VIAL IVPUSH (10:12)
[2021-11-10] MEDS: Lactated Ringers 1,000 ML 999 ML IV (10:24)
[2021-11-10 10:38] LABS: IDNOW Serial# 55D5AD1C
[2021-11-10 10:39] LABS: COVID-19 Test Negative (Negative)
[2021-11-10 10:51] LABS: HCG Quantitative < 2 mIU/mL
[2021-11-10 10:53] LABS: Alanine Aminotransferase 22 U/L (0-31); Albumin Level 3.2 g/dL (3.5-5.0); Alkaline Phosphatase 91 U/L (39-117); Anion Gap 14 (12-20); Aspartate Amino Transferase 45 U/L (5-31); Bilirubin Direct 0.3 mg/dL (0.0-0.5); Bilirubin Total 0.5 mg/dL (0.0-1.0); Blood Urea Nitrogen 3 mg/dL (9-16); C Reactive Protein 0.26 mg/dL (< or = 0.50); Calcium 8.7 mg/dL (8.4-10.2); Carbon Dioxide 24 mmol/L (22-29); Chloride 106 mmol/L (96-108); Creatinine Clr Calc Pharmacy 119.9; Estimated Glomerular Filt Rate > 60; Ethanol < 10 mg/dL; Glucose Random 89 mg/dL (60-115); Lipase 13 U/L (8-78); Magnesium 1.5 mg/dL (1.6-2.6); Potassium 4.2 mmol/L (3.3-5.1); Sodium 140 mmol/L (135-145); Total Protein 6.2 g/dL (6.5-8.0)
[2021-11-10] MEDS: iohexoL 350 MG/ML 100 ML INFUS..BTL IV (11:43)
[2021-11-10 12:02] LABS: Reflex Lactate? Lactic Acid Added
[2021-11-10 12:18] LABS: Appearance Urine Clear; Color Urine Yellow; Glucose Urine UA Negative (Negative); Leukocyte Esterase Urine Trace (Negative); Nitrite Urine Negative (Negative); PH 7.5 (5.0-9.0); UMIC TRIGGER UACC YES; Urine Blood Negative (Negative); Urine Ketones Negative (Negative); Urine Protein Negative (Neg-Trace)
[2021-11-10 12:20] LABS: Bacteria Urine None Seen (None Seen); Hyaline Casts Urine 0-2 /LPF (0-2); RBC Urine 0-2 /HPF (0-2); Squamous Epithelial Cell Urine 0-2 /HPF (0-2); WBC Urine 0-5 /HPF (0-5)
[2021-11-10 12:21] LABS: Lactic Acid 2.4 mmol/L (0.5-2.0)
--- NOTE | 2021-11-10 14:50 | PC.NURSE ---
pt pwd, ambulating appropriately. IV removed at time of discharge. pt provided with discharge packet. pt verbalized understanding of discharge instructions.
== END 2021-11-10 14:52 | disposition home or self-care (01) ==
PROVIDERS: Emergency Provider Emergency Medicine; PCP Physician Assistant
DX: K57.32 Diverticulitis of large intestine without perforation or abscess without bleeding (principal); E86.0 Dehydration; E83.42 Hypomagnesemia; Z20.822 Contact with and (suspected) exposure to COVID-19; F10.20 Alcohol dependence, uncomplicated; Y90.0 Blood alcohol level of less than 20 mg/100 ml; Z87.891 Personal history of nicotine dependence
CPT/HCPCS: 36415; 74177; 80048; 80076; 81001; 82077; 83605; 83690; 83735; 84702; 85025; 86140; 87040; 87635; 96361; 96374; 96375; 99284; J1885; J2270; J2405; Q9967

== ENCOUNTER 2021-11-12 16:59 | Inpatient (IN) | payer OTHER, SELFPAY ==
--- NOTE | ~2021-11-12 | CT_ITS ---
EXAMINATION: CT ABDOMEN AND PELVIS WITHOUT CONTRAST CLINICAL INFORMATION: Abdominal pain. History of diverticulitis. COMPARISON: 11/10/2021 TECHNIQUE: Multidetector volumetric imaging was performed from the superior aspect of the liver through the pubic symphysis. Sagittal and coronal reformatted images were obtained on the technologist's workstation. This CT examination was performed using dose optimization techniques as appropriate, variously including the following: *Automated exposure control *Adjustment of mA and/or kV according to patient size (this includes techniques or standardized protocols for targeted exams where dose is matched to indication/reason for exam; i.e. extremities or head) *Use of iterative reconstruction technique DLP: 349 mGy-cm FINDINGS: LUNG BASES: The visualized lung bases are unremarkable. LIVER, GALLBLADDER, AND BILIARY TREE: The liver is borderline enlarged measuring 18 cm CC. Diffuse low-attenuation with normal contour.. No focal hepatic lesion or biliary ductal dilatation is present. The gallbladder is unremarkable with no evidence of radiopaque gallstones, gallbladder wall thickening, or obvious pericholecystic inflammatory changes. PANCREAS: Unremarkable. SPLEEN: Unremarkable. ADRENAL GLANDS: Unremarkable. KIDNEYS AND URETERS: The kidneys are normal in size, shape, and attenuation. No hydronephrosis, hydroureter, or calculi seen. No perinephric stranding. Exophytic hypoattenuating lesion at the midpole of the left kidney. This measures higher than simple fluid, but unchanged from prior postcontrast study. This favors a hyperdense cyst. BLADDER: Unremarkable. GASTROINTESTINAL TRACT: The stomach is unremarkable. Normal caliber small bowel without obstruction. Colonic diverticulosis present without diverticulitis. There is again noted mild wall thickening with inflammation at the sigmoid colon, suggestive of diverticulitis. No free air or fluid collection. ABDOMINAL WALL: No significant hernia is appreciated. LYMPH NODES: Normal. VASCULAR: Normal caliber aorta. No fluid is seen. PELVIC VISCERA: The uterus and adnexa are unremarkable. OSSEOUS STRUCTURES: No acute or suspicious osseous abnormality. CT/CT abdomen pelvis wo IV con IMPRESSION: Again suggestion of mild diverticulitis of the sigmoid colon. No fluid collections. Hepatic steatosis. Fleischner guidelines were followed.
--- NOTE | ~2021-11-12 | CT_ITS ---
EXAMINATION: CT ABDOMEN AND PELVIS WITHOUT CONTRAST CLINICAL INFORMATION: History of diverticulitis. Lower abdominal pain. COMPARISON: Previous CT of the abdomen and pelvis most recent 11/13/2021 TECHNIQUE: Multidetector volumetric imaging was performed from the superior aspect of the liver through the pubic symphysis. Sagittal and coronal reformatted images were obtained on the technologist's workstation. This CT examination was performed using dose optimization techniques as appropriate, variously including the following: *Automated exposure control *Adjustment of mA and/or kV according to patient size (this includes techniques or standardized protocols for targeted exams where dose is matched to indication/reason for exam; i.e. extremities or head) *Use of iterative reconstruction technique DLP: 382 mGy-cm FINDINGS: LUNG BASES: The visualized lung bases are unremarkable. LIVER, GALLBLADDER, AND BILIARY TREE: Enlarged fatty liver. Enlarged gallbladder. No gallstone appreciated by CT No focal liver lesion or biliary duct dilatation. PANCREAS: Unremarkable. SPLEEN: Unremarkable. ADRENAL GLANDS: Unremarkable. KIDNEYS AND URETERS: 1 cm slightly high attenuation lesion exophytic to the upper pole of the left kidney probably representing a hyperdense cyst. No imaging follow-up needed. Kidneys are otherwise unremarkable. BLADDER: Unremarkable. GASTROINTESTINAL TRACT: There is diverticulosis of the colon. There is mild wall thickening of the proximal sigmoid colon again questionable for mild sigmoid diverticulitis. This does not appear appreciably changed from recent exam. There are fluid-filled loops of small and large bowel suggestive of an ileus. The appendix is normal. The stomach is normal. No free air or ascites. No abscess. ABDOMINAL WALL: Small umbilical hernia containing fat. LYMPH NODES: Normal. VASCULAR: Unremarkable. PELVIC VISCERA: Unremarkable. OSSEOUS STRUCTURES: Unremarkable. CT/CT abdomen pelvis wo IV con IMPRESSION: Diverticulosis and question mild diverticulitis of the proximal sigmoid colon. This is similar to previous exam. Increasing fluid-filled small and large bowel probably representing an ileus. Enlarged fatty liver. Enlarged gallbladder. Hyperdense left renal cyst. Fleischner guidelines were followed.
[2021-11-12 17:30] VITALS: BP 122/76; PULSE 115; RESP 18; TEMP 36.2; O2SAT 100; BMI 20.3
[2021-11-12 18:09] LABS: Alanine Aminotransferase 23 U/L (0-31); Albumin Level 3.3 g/dL (3.5-5.0); Alkaline Phosphatase 88 U/L (39-117); Aspartate Amino Transferase 54 U/L (5-31); Bilirubin Direct 0.2 mg/dL (0.0-0.5); Bilirubin Total 0.5 mg/dL (0.0-1.0); Blood Urea Nitrogen 3 mg/dL (9-16); Calcium 8.7 mg/dL (8.4-10.2); Creatinine Clr Calc Pharmacy 106.6; Estimated Glomerular Filt Rate > 60; Glucose Random 94 mg/dL (60-115); Lipase 19 U/L (8-78); Total Protein 6.5 g/dL (6.5-8.0)
[2021-11-12 18:20] LABS: Anion Gap 22 (12-20); Carbon Dioxide 15 mmol/L (22-29); Chloride 107 mmol/L (96-108); Potassium 4.5 mmol/L (3.3-5.1); Sodium 139 mmol/L (135-145)
[2021-11-12 19:04] LABS: Basophils Absolute Auto 0.1 X10*3/uL (0.0-0.2); Basophils Percent Auto 0.9 % (0-2); Eosinophils Absolute Auto 0.4 X10*3/uL (0.0-0.4); Eosinophils Percent Auto 5.1 % (0-4); Hematocrit 35.6 % (37.0-47.0); Hemoglobin 11.5 g/dl (12.0-16.0); Imm Gran Abs Auto 0.02 X10*3/uL (0.00-0.03); Imm Gran Pct Auto 0.2 % (0.0-0.4); Lymphocytes Absolute Auto 2.4 X10*3/uL (1.2-4.9); Lymphocytes Percent Auto 29.3 % (20-40); Mean Corpuscular HGB Conc 32.3 g/dl (31.0-35.0); Mean Corpuscular Hemoglobin 31.3 pg (27.0-33.0); Mean Platelet Volume 9.4 fL (9.4-12.3); Monocytes Absolute Auto 1.1 X10*3/uL (0.1-1.2); Monocytes Percent Auto 13.5 % (2-11); Neutrophils Absolute Auto 4.2 x10*3/uL (2.0-8.3); Platelet Count 560 X10*3/uL (160-400); Red Blood Count 3.67 X10*6/uL (4.20-5.50); White Blood Count 8.2 X10*3/uL (4.8-10.8)
[2021-11-12 19:25] LABS: MANUAL DIFF FLAG NO
[2021-11-13 01:09] VITALS: BP 128/86; PULSE 125; RESP 16; TEMP 36.6; O2SAT 97
--- NOTE | 2021-11-13 02:07 | ED_ITS ---
HPI - Nausea/Vomiting/Diarrhea General Chief complaint: Nausea/Vomiting/Diarrhea Stated complaint: severe diarrhea, abdominal pain, low BP Time Seen by Provider: 11/13/21 01:52 Source: patient Mode of arrival: ambulatory Limitations: no limitations History of Present Illness HPI Narrative: Patient comes to the emergency room complaining of diarrhea for 11+ days. Patient states she was discharged from [facility] approximately 11 days ago. Patient states she was there because she had an pelvic abscess which required CT guided drainage. Patient was sent home with Augmentin and take it because of allergy . Two days ago, patient was sent home from the ER with ciprofloxacin and metronidazole. Patient states that this did not make any difference with her symptoms According to previous notes, patient had E. Coli bacteremia at [facility] abscess was 7.2 x 4 x 4 cm around L ovary, IUD was removed as well.? STI testing negative.? [employer] felt it was diverticular and not TOA.? 10/31 CT scan negative for residual fluid collection.? US of legs negative for DVT. CT scan done 2 days ago shows mid sigmoid diverticulitis without evidence of perforation or abscess formation. Related Data Home Medications Medication Instructions Recorded Confirmed naltrexone 50 mg tablet 50 mg PO DAILY 04/20/21 09/11/21 melatonin 5 mg tablet 5 mg PO BEDTIME PRN Sleep 07/29/21 09/11/21 cholecalciferol (vitamin D3) 25 25 mcg PO DAILY 09/11/21 09/11/21 mcg (1,000 unit) tablet furosemide 40 mg tablet 40 mg PO DAILY 11/10/21 hyoscyamine sulfate 0.125 mg 0.125 mg PO Q4H PRN cramps 11/10/21 sublingual tablet morphine 15 mg tablet,extended 15 mg PO Q12H 11/10/21 release ondansetron 4 mg disintegrating 4 mg PO Q8H PRN 11/10/21 tablet Previous Rx's Medication Instructions Recorded folic acid 1 mg tablet 1 mg PO DAILY #30 tabs 09/16/21 sertraline 25 mg tablet 50 mg PO DAILY #90 tabs 11/04/21 thiamine mononitrate (vit B1) 100 100 mg PO DAILY #30 tabs 11/04/21 mg tablet ciprofloxacin HCl 500 mg tablet 500 mg PO BID 7 days #14 tabs 11/10/21 folic acid 1 mg tablet 1 mg PO DAILY #30 tabs 11/10/21 metronidazole 500 mg tablet 500 mg PO Q8H 7 days #21 tabs 11/10/21 vitamin B complex (B 1 tab PO DAILY #30 tabs 11/10/21 Complex-Vitamin B12 tablet) Allergies Allergy/AdvReac Type Severity Reaction Status Date / Time amoxicillin [From Augmentin] Allergy Intermediate Abdominal Verified 11/10/21 14:24 Pain clavulanic acid Allergy Intermediate Abdominal Verified 11/10/21 14:24 [From Augmentin] Pain Sulfa (Sulfonamide Allergy Mild RASH Verified 11/10/21 14:24 Antibiotics) [SULFA (SULFONAMIDE ANTIBIOTICS)] magnesium AdvReac Diarrhea Verified 11/10/21 14:24 Review of Systems Review of Systems: Constitutional : No Weight loss, No Fever, No Chills, No Night Sweats, No Fatigue, No Malaise ENT/Mouth : No Hearing loss, No Ear Pain, No Nasal Congestion, No Sinus Pain, No Hoarseness, No sore throat, No Rhinorrhea, No Swallowing Difficulty Eyes: No Eye Pain, No Swelling, No Redness, No Foreign Body, No Discharge, No Vision Changes Cardiovascular : No Chest Pain, No SOB, No Dyspnea on Exertion, No Orthopnea, No Edema, No Palpitations Respiratory : No Cough, No Sputum, No Wheezing, No Smoke Exposure, No Dyspnea Gastrointestinal : 1 episode of vomiting today, at this time no nausea, complaining of diffuse frequent diarrhea, patient hungry but anything to do with the removal with diarrhea. No Constipation, No abdominal Pain, No Hematochezia, No Melena Genitourinary : no irregular bleeding, No Dysuria, No Urinary Frequency, No Hematuria, No Urinary Incontinence, No Urgency, No Flank Pain, No Urinary Flow Changes, No Hesitancy Musculoskeletal : No joint pain, No Myalgias, No Joint Swelling Skin : No Skin Lesions, No rash Neuro : No Weakness, No Numbness, No Paresthesias, No Loss of Consciousness, No Dizziness, No Headache Psych : No Anxiety/Panic, No Depression, No SI/HI/AH/VH, No Social Issues, Heme/Lymph: No Bruising, No Bleeding,No Lymphadenopathy Endocrine : No Polyuria, No Polydipsia, No Temperature Intolerance PMFSH Past Medical History Medical History Alcohol abuse Anxiety Diverticulitis Pelvic abscess in female Surgical History No pertinent past surgical history Family History Family History Father Medical history unknown Mother Medical history unknown Paternal Grandfather Cancer Sister Epilepsy Daughter In good health Son In good health Social History Social History Household Members: None Housing: Apartment Do you presently have visiting nurse or other home services: No Alcohol intake: current Alcohol intake frequency: 3 or more drinks per day Alcohol type: hard liquor Patient Tobacco Use Status: Former Tobacco user Tobacco use type: Cigarette e-Cigarette/Vaping Use: Former Use Second Hand Smoke Exposure: No Advance Directives: Yes Advance Directives on File: Yes Advance Directives Date on File: 01/25/21 service: No Current occupational status: unemployed Cognitive needs: No Hearing needs: No Vision needs: No Physical Exam Vital Signs: Vital Signs: Last Vital Signs Temp 97.8 F 11/13/21 01:09 Pulse 125 H 11/13/21 01:09 Resp 16 11/13/21 01:09 BP 128/86 11/13/21 01:09 Pulse Ox 97 11/13/21 01:09 O2 Del Method 11/13/21 01:09 BMI result Body Mass Index 20.3 Const: Other: Appearance: Alert. Oriented X3. No acute distress. Eyes: Pupils equal, round and reactive to light. ENT: Pharynx normal. Neck: Normal inspection. Neck supple. No lymph nodes noted. No crepitus CVS: Normal heart rate and rhythm. Pulses normal. Normal S1 and S2 Respiratory: No respiratory distress. Breath sounds normal. No Wheezing. No rales Abdomen: Soft and nontender. No rigidity. No distention. Skin: Skin warm and dry. Normal skin color. Normal skin turgor. Extremities: No lower extremity edema. No Lacerations. No Rash Neuro: Oriented X 3. No motor deficit. No sensory deficit. Moving all extrem ities. No slurred speech. CN 2 through 12 grossly intact Psych: calm, cooperative, anxous, teary Course Course Course Narrative: Patient receiving IV fluids, Lomotil. C diff pending, CT scan to re-evaluate for abscess formation due to diverticulitis pending. Patient having multiple episodes of diarrhea. C diff is negative. Labs are pretty much stable, CT scan is unchanged from 3 days ago. Patient complaining of worsening abdominal pain. Despite p.o. antibiotics, patient has not improved, we will admit for felt outpatient treatment. I discussed the patient with Dr. Henson, pt being admitted MDM - Nausea/Vomiting/Diarrhea Lab Data Result diagrams: 11/12/21 18:58 11/12/21 17:43 Labs: Lab Results 11/12/21 11/12/21 11/13/21 Range/Units 17:43 18:58 02:24 WBC 8.2 (4.8-10.8) X10*3/uL RBC 3.67 L (4.20-5.50) X10*6/uL Hgb 11.5 L (12.0-16.0) g/dl Hct 35.6 L (37.0-47.0) % MCV 97.0 (80.0-98.0) fL MCH 31.3 (27.0-33.0) pg MCHC 32.3 (31.0-35.0) g/dl RDW 14.0 (11.0-16.0) % Plt Count 560 H (160-400) X10*3/uL MPV 9.4 (9.4-12.3) fL Immature Gran % (Auto) 0.2 (0.0-0.4) % Neut % (Auto) 51.0 (45-73) % Lymph % (Auto) 29.3 (20-40) % [place] % (Auto) 13.5 H (2-11) % Eos % (Auto) 5.1 H (0-4) % Baso % (Auto) 0.9 (0-2) % Lymph # (Auto) 2.4 (1.2-4.9) X10*3/uL [place] # (Auto) 1.1 (0.1-1.2) X10*3/uL Eos # (Auto) 0.4 (0.0-0.4) X10*3/uL Baso # (Auto) 0.1 (0.0-0.2) X10*3/uL Abs Immat Gran (auto) 0.02 (0.00-0.03) X10*3/uL Absolute Neuts (auto) 4.2 (2.0-8.3) x10*3/uL Absolute Nucleated RBC 0.000 (0.0-0.012) X10*3/uL Nucleated RBC % (auto) 0.0 (0.0-0.2) /100WBC Sodium 139 (135-145) mmol/L Potassium 4.5 (3.3-5.1) mmol/L Chloride 107 (96-108) mmol/L Carbon Dioxide 15 L (22-29) mmol/L Anion Gap 22 H (12-20) BUN 3 L (9-16) mg/dL Creatinine 0.56 (0.5-1.4) mg/dL Estim Creat Clear Calc 106.6 Estimated GFR > 60 Random Glucose 94 (60-115) mg/dL Calcium 8.7 (8.4-10.2) mg/dL Total Bilirubin 0.5 (0.0-1.0) mg/dL Direct Bilirubin 0.2 (0.0-0.5) mg/dL AST 54 H (5-31) U/L ALT 23 (0-31) U/L Alkaline Phosphatase 88 (39-117) U/L Total Protein 6.5 (6.5-8.0) g/dL Albumin 3.3 L (3.5-5.0) g/dL Lipase 19 (8-78) U/L C. difficile Tox B Gene NEGATIVE (Negative) Imaging Data CT scan - abdomen: Radiologist's impression: INDINGS: LUNG BASES: The visualized lung bases are unremarkable.? LIVER, GALLBLADDER, AND BILIARY TREE: The liver is borderline enlarged measuring 18 cm CC. Diffuse low-attenuation with normal contour.. No focal hepatic lesion or biliary ductal dilatation is present. The gallbladder is unremarkable with no evidence of radiopaque gallstones, gallbladder wall thickening, or obvious pericholecystic inflammatory changes.? PANCREAS: Unremarkable.? SPLEEN: Unremarkable.? ADRENAL GLANDS: Unremarkable.? KIDNEYS AND URETERS: The kidneys are normal in size, shape, and attenuation. No hydronephrosis, hydroureter, or calculi seen. No perinephric stranding. Exophytic hypoattenuating lesion at the midpole of the left kidney. This measures higher than simple fluid, but unchanged from prior postcontrast study. This favors a hyperdense cyst. ? BLADDER: Unremarkable.? GASTROINTESTINAL TRACT: The stomach is unremarkable. Normal caliber small bowel without obstruction. Colonic diverticulosis present without diverticulitis. There is again noted mild wall thickening with inflammation at the sigmoid colon, suggestive of diverticulitis. No free air or fluid collection.? ABDOMINAL WALL: No significant hernia is appreciated.? LYMPH NODES: Normal. VASCULAR: Normal caliber aorta. No fluid is seen. PELVIC VISCERA: The uterus and adnexa are unremarkable.? OSSEOUS STRUCTURES: No acute or suspicious osseous abnormality.? CT/CT abdomen pelvis wo IV con IMPRESSION: Again suggestion of mild diverticulitis of the sigmoid colon. No fluid collections. ? Hepatic steatosis.? ? Fleischner guidelines were followed. Discharge Plan Discharge Clinical Impression: Diverticulitis, Diarrhea Patient Disposition: Admitted As Inpatient Prescriptions: No Action sertraline 25 mg tablet 50 mg PO DAILY Qty: 90 1RF thiamine mononitrate (vit B1) 100 mg tablet 100 mg PO DAILY Qty: 30 0RF melatonin 5 mg Tablet 5 mg PO BEDTIME PRN (Reason: Sleep) cholecalciferol (vitamin D3) 25 mcg (1,000 unit) Tablet 25 mcg PO DAILY folic acid 1 mg Tablet 1 mg PO DAILY Qty: 30 0RF ciprofloxacin HCl 500 mg tablet 500 mg PO BID 7 Days Qty: 14 0RF metronidazole 500 mg tablet 500 mg PO Q8H 7 Days Qty: 21 0RF folic acid 1 mg tablet 1 mg PO DAILY Qty: 30 0RF vitamin B complex [B Complex-Vitamin B12] Tablet 1 tab PO DAILY Qty: 30 0RF naltrexone 50 mg tablet 50 mg PO DAILY furosemide 40 mg tablet 40 mg PO DAILY morphine 15 mg tablet extended release 15 mg PO Q12H ondansetron 4 mg tablet,disintegrating 4 mg PO Q8H PRN hyoscyamine sulfate 0.125 mg tablet, sublingual 0.125 mg PO Q4H PRN (Reason: cramps)
[2021-11-13] MEDS: Diphenoxylate/Atrop 2.5/0.025 TABLET 2 TAB PO (02:52)
[2021-11-13] MEDS: 0.9 % Sodium Chloride 1,000 ML 999 ML IVCONT (02:53)
[2021-11-13 03:15] LABS: CDiff Gene PCR NEGATIVE (Negative)
[2021-11-13] MEDS: Morphine Sulfate 4 MG/ML CARTRIDGE IVPUSH (03:49)
[2021-11-13 03:54] LABS: Appearance Urine Clear; Color Urine Dark Yellow; Glucose Urine UA Negative (Negative); Leukocyte Esterase Urine Trace (Negative); Nitrite Urine Negative (Negative); PH 5.5 (5.0-9.0); UMIC TRIGGER UACC YES; Urine Blood Negative (Negative); Urine Ketones Negative (Negative); Urine Protein Trace mg/dL (Neg-Trace)
[2021-11-13 03:58] LABS: Bacteria Urine None Seen (None Seen); UACC Culture Trigger YES
--- NOTE | 2021-11-13 04:17 | P.HPHOSP_ITS ---
History of Present Illness Date of Service: 11/13/21 Chief Complaint: Abdominal Pain and diarrhea This is a 41-year-old female with pertinent history of alcohol use disorder, generalized anxiety disorder who presents to the emergency department with complaints of left-sided abdominal pain and diarrhea. Patient was admitted to [facility] and discharged on 11/02 for E coli bacteremia and 7.2 x 4 x 4cm abscess encasing the left ovary. She underwent IR guided drain placement which was subsequently removed during the admission. Gynecology service felt that the collection was not as a result of TOA but possibly more diverticular in nature. A repeat CT scan on 10/31 was without residual fluid collection and patient was discharged with Augmentin to complete antibiotic course. Patient states she did not take Augmentin at home as she is allergic to it. Patient continued to have left-sided abdominal pain after discharge with 8-10 episodes of diarrhea every day. Any p.o. intake made her nauseous , caused left-sided abdominal pain and diarrhea. Patient also had to get up 3-4 times at night for diarrhea. Patient went to her PCP on 11/10 who sent her to the ER. In the ER, abdominal imaging was concerning for diverticulitis and she was discharged on p.o. ciprofloxacin and Flagyl. Patient states she took oral antibiotics but there was no relief in her symptoms and hence decided to present today. Patient denies similar symptoms in the past, prior to [facility] admission. Patient denies fever, chills, chest pain, shortness a breath, palpitations, changes in urinary habits. Review of Systems Review of Systems: All 13 review of systems are negative except as noted in [facility] Medical History Alcohol abuse Anxiety Diverticulitis Pelvic abscess in female Functional capacity: independent ambulation Family History Father Medical history unknown Mother Medical history unknown Paternal Grandfather Cancer Sister Epilepsy Daughter In good health Son In good health Surgical History No pertinent past surgical history Social History Household Members: None Housing: Apartment Do you presently have visiting nurse or other home services: No Alcohol intake: current Alcohol intake frequency: 3 or more drinks per day Alcohol type: hard liquor Patient Tobacco Use Status: Former Tobacco user Tobacco use type: Cigarette e-Cigarette/Vaping Use: Former Use Second Hand Smoke Exposure: No Advance Directives: Yes Advance Directives on File: Yes Advance Directives Date on File: 01/25/21 service: No Current occupational status: unemployed Cognitive needs: No Hearing needs: No Vision needs: No Meds Allergies Allergy/AdvReac Type Severity Reaction Status Date / Time amoxicillin [From Augmentin] Allergy Intermediate Abdominal Verified 11/10/21 14:24 Pain clavulanic acid Allergy Intermediate Abdominal Verified 11/10/21 14:24 [From Augmentin] Pain Sulfa (Sulfonamide Allergy Mild RASH Verified 11/10/21 14:24 Antibiotics) [SULFA (SULFONAMIDE ANTIBIOTICS)] magnesium AdvReac Diarrhea Verified 11/10/21 14:24 Active Medications: Current Medications Acetaminophen (Acetaminophen 325 Mg Tablet) 650 mg PO Q6H PRN PRN Reason: Pain, Mild (Pain Scale 1-3) Enoxaparin Sodium (Enoxaparin Sodium 40 Mg/0.4 Ml Syringe) 40 mg SUBCUT Q24H [facility] Piperacillin Sod/Tazobactam (Sod 4.5 gm/ Sodium Chloride) 100 mls @ 200 mls/hr IV Q6H [facility] Sodium Chloride (Ns) 250 mls @ 150 mls/hr IV .Q1H40M ONE Stop: 11/13/21 05:50 Loperamide HCl (Loperamide Hcl 2 Mg Capsule) 2 mg PO Q4H PRN PRN Reason: Diarrhea Melatonin (Melatonin 3 Mg Tablet) 6 mg PO BEDTIME PRN PRN Reason: Insomnia Ondansetron HCl (Ondansetron Hcl 4 Mg/2 Ml Vial) 4 mg IVPUSH Q8H PRN PRN Reason: Nausea and Vomiting Sertraline HCl (Sertraline Hcl 50 Mg Tablet) 50 mg PO DAILY ONE Stop: 11/13/21 04:12 Sodium Chloride (0.9 % Sodium Chloride Flush 3 Ml Syringe) 3 ml IVFLUSH QSHIFT [facility] Home Medications Medication Instructions Recorded Confirmed Last Taken Type naltrexone 50 mg tablet 50 mg PO DAILY 04/20/21 09/11/21 1 Month Ago History ~08/12/21 melatonin 5 mg tablet 5 mg PO BEDTIME PRN Sleep 07/29/21 09/11/21 1 Month Ago History ~08/12/21 cholecalciferol (vitamin D3) 25 25 mcg PO DAILY 09/11/21 09/11/21 1 Month Ago History mcg (1,000 unit) tablet ~08/12/21 furosemide 40 mg tablet 40 mg PO DAILY 11/10/21 Unknown History hyoscyamine sulfate 0.125 mg 0.125 mg PO Q4H PRN cramps 11/10/21 Unknown History sublingual tablet morphine 15 mg tablet,extended 15 mg PO Q12H 11/10/21 Unknown History release ondansetron 4 mg disintegrating 4 mg PO Q8H PRN 11/10/21 Unknown History tablet Physical Exam Vital Signs and Narrative: Vital Signs: Last Vital Signs Temp 97.8 F 11/13/21 01:09 Pulse 125 H 11/13/21 01:09 Resp 16 11/13/21 01:09 BP 128/86 11/13/21 01:09 Pulse Ox 97 11/13/21 01:09 O2 Del Method 11/13/21 01:09 BMI result Body Mass Index 20.3 Middle-aged female lying in bed in mild distress Neck supple, no JVD tachycardic with regular rhythm, S1-S2 heard Regular breath sounds bilaterally, no wheezing or crackles appreciated Abdomen with left lower quadrant tenderness, no rebound tendeness, no guarding, no rigidity Patient is awake, alert and oriented to self, place, time and person ; no focal motor deficit Psych: Tearful No pedal edema Results Labs CBC and Chem 7: 11/12/21 18:58 11/12/21 17:43 Labs: Laboratory Results - last 24 hr 11/12/21 11/12/21 11/13/21 17:43 18:58 02:24 MCV 97.0 MCH 31.3 MCHC 32.3 RDW 14.0 Plt Count 560 H MPV 9.4 Immature Gran % (Auto) 0.2 Neut % (Auto) 51.0 Lymph % (Auto) 29.3 [place] % (Auto) 13.5 H Eos % (Auto) 5.1 H Baso % (Auto) 0.9 Lymph # (Auto) 2.4 [place] # (Auto) 1.1 Eos # (Auto) 0.4 Baso # (Auto) 0.1 Abs Immat Gran (auto) 0.02 Absolute Neuts (auto) 4.2 Absolute Nucleated RBC 0.000 Nucleated RBC % (auto) 0.0 Anion Gap 22 H Estim Creat Clear Calc 106.6 Estimated GFR > 60 Random Glucose 94 Calcium 8.7 Total Bilirubin 0.5 Direct Bilirubin 0.2 AST 54 H ALT 23 Alkaline Phosphatase 88 Total Protein 6.5 Albumin 3.3 L Lipase 19 Urine Color Urine Appearance Urine pH Ur Specific [place] Urine Protein Urine Glucose (UA) Urine Ketones Urine Blood Urine Nitrite Ur Leukocyte Esterase Urine RBC Urine WBC Ur Squamous Epith Cells Urine Bacteria Hyaline Casts C. difficile Tox B Gene NEGATIVE 11/13/21 03:24 MCV MCH MCHC RDW Plt Count MPV Immature Gran % (Auto) Neut % (Auto) Lymph % (Auto) [place] % (Auto) Eos % (Auto) Baso % (Auto) Lymph # (Auto) [place] # (Auto) Eos # (Auto) Baso # (Auto) Abs Immat Gran (auto) Absolute Neuts (auto) Absolute Nucleated RBC Nucleated RBC % (auto) Anion Gap Estim Creat Clear Calc Estimated GFR Random Glucose Calcium Total Bilirubin Direct Bilirubin AST ALT Alkaline Phosphatase Total Protein Albumin Lipase Urine Color Dark Yellow Urine Appearance Clear Urine pH 5.5 Ur Specific [place] 1.020 Urine Protein Trace Urine Glucose (UA) Negative Urine Ketones Negative Urine Blood Negative Urine Nitrite Negative Ur Leukocyte Esterase Trace H Urine RBC 3-5 H Urine WBC 6-10 H Ur Squamous Epith Cells 11-20 Urine Bacteria None Seen Hyaline Casts 3-5 C. difficile Tox B Gene Imaging Radiologist's Impressions: Impressions Abdomen/Pelvis CT 11/13/21 02:41 IMPRESSION: Again suggestion of mild diverticulitis of the sigmoid colon. No fluid collections. Hepatic steatosis. Fleischner guidelines were followed. Assessment and Plan (1) Diverticulitis: Status: Acute (2) Diarrhea: Status: Acute (3) SENA (generalized anxiety disorder): Status: Acute (4) Alcohol use disorder, moderate, dependence: Status: Acute Plan This is a 41-year-old female with pertinent history of alcohol use disorder, generalized anxiety disorder who presents to the emergency department with complaints of left-sided abdominal pain and diarrhea. #. Acute diverticulitis - will admit patient and initiate IV Zosyn. Failed p.o. ciprofloxacin and Flagyl. Continue IV crystalloid resuscitation. Will keep patient NPO for bowel rest. Analgesics p.r.n. #. Diarrhea -?due to above. C diff toxin negative. Sent stool studies. May need specialist if symptoms do not improve #. Alcohol use disorder - states her previous drink was prior to labor day ie prior to [facility] admission. Was previously on naltrexone which was stopped during previous hospitalization. Will continue to hold naltrexone as she is requiring opioid pain medications. #. Generalized anxiety disorder -Continue sertraline DVT prophylaxis: Lovenox 40 mg daily Diet: NPO. Advanced as tolerated Full code Patient will require two night minimum hospital stay for need for IV antibiotics Quality Stroke Does the patient have a stroke diagnosis?: No VTE Prior VTE?: No VTE Risk Level:: Medical - low VTE Device Contraindication: Treatment Not Indicated VTE Drug Contraindication: N/A - Med Ordered
[2021-11-13] MEDS: ondansetron HCL 4 MG/2 ML VIAL IVPUSH ×2 (05:05→13:01)
[2021-11-13] MEDS: Enoxaparin Sodium 40 MG/0.4 ML SYRINGE SUBCUT (05:05)
[2021-11-13] MEDS: Piperacillin Sodium/Tazobactam 4.5 GM in 0.9 % Sodium Chloride 100 ML IV ×4 (05:05→22:10)
[2021-11-13] MEDS: 0.9 % Sodium Chloride 250 ML 150 ML IV (05:09)
[2021-11-13] MEDS: Sertraline HCL 50 MG TABLET PO (07:37)
[2021-11-13] MEDS: 0.9 % Sodium Chloride Flush 3 ML SYRINGE IVFLUSH ×2 (07:37→15:55)
[2021-11-13 07:38] LABS: MANUAL DIFF FLAG NO
[2021-11-13 07:43] LABS: Venous Blood Gas Refer to POC result
[2021-11-13 07:44] LABS: Basophils Absolute Auto 0.1 X10*3/uL (0.0-0.2); Basophils Percent Auto 0.8 % (0-2); Eosinophils Absolute Auto 0.4 X10*3/uL (0.0-0.4); Eosinophils Percent Auto 6.3 % (0-4); Hematocrit 30.7 % (37.0-47.0); Hemoglobin 9.9 g/dl (12.0-16.0); Imm Gran Abs Auto 0.01 X10*3/uL (0.00-0.03); Imm Gran Pct Auto 0.2 % (0.0-0.4); Lymphocytes Absolute Auto 2.9 X10*3/uL (1.2-4.9); Mean Corpuscular HGB Conc 32.2 g/dl (31.0-35.0); Mean Corpuscular Hemoglobin 31.2 pg (27.0-33.0); Mean Corpuscular Volume 96.8 fL (80.0-98.0); Mean Platelet Volume 9.5 fL (9.4-12.3); Monocytes Absolute Auto 0.9 X10*3/uL (0.1-1.2); Monocytes Percent Auto 13.9 % (2-11); Neutrophils Absolute Auto 2.2 x10*3/uL (2.0-8.3); Neutrophils Percent Auto 33.8 % (45-73); Platelet Count 485 X10*3/uL (160-400); Red Blood Count 3.17 X10*6/uL (4.20-5.50); Red Cell Distribution Width 14.1 % (11.0-16.0); White Blood Count 6.3 X10*3/uL (4.8-10.8)
[2021-11-13 07:44] LABS: VBG Base Excess -4.3 mmol/L; VBG HCO3 19 mmol/L (22-26); VBG pCO2 31 mmHg; VBG pO2 87 mmHg
[2021-11-13 07:51] VITALS: BP 101/63; PULSE 84; RESP 16; O2SAT 96
[2021-11-13 08:00] LABS: Lactic Acid 1.8 mmol/L (0.5-2.0)
--- NOTE | 2021-11-13 08:06 | PHA.MEDREC ---
Pharmacy Consult ? Medication Reconciliation Pharmacy has completed the medication reconciliation.
[2021-11-13 08:09] LABS: Anion Gap 17 (12-20); Blood Urea Nitrogen 3 mg/dL (9-16); Calcium 8.1 mg/dL (8.4-10.2); Carbon Dioxide 18 mmol/L (22-29); Chloride 110 mmol/L (96-108); Creatinine Clr Calc Pharmacy 110.6; Estimated Glomerular Filt Rate > 60; Glucose Random 93 mg/dL (60-115); Potassium 4.3 mmol/L (3.3-5.1); Sodium 141 mmol/L (135-145)
[2021-11-13] MEDS: Loperamide HCl 2 MG CAPSULE PO (10:18)
[2021-11-13 11:23] LABS: Adenovirus F 40/41 Not Detected (Not Detect.); Astrovirus Not Detected (Not Detect.); Campylobacter Not Detected (Not Detect.); Cryptosporidium Not Detected (Not Detect.); Cyclospora cayetanensis Not Detected (Not Detect.); E. coli EAEC Not Detected (Not Detect.); E. coli EPEC Not Detected (Not Detect.); E. coli ETEC Not Detected (Not Detect.); E. coli STEC Not Detected (Not Detect.); Entamoeba histolytica Not Detected (Not Detect.); Giardia lamblia Not Detected (Not Detect.); Norovirus GI/GII Not Detected (Not Detect.); Plesiomonas shigelloides Not Detected (Not Detect.); Salmonella Not Detected (Not Detect.); Shigella sp./EIEC Not Detected (Not Detect.); Vibrio Not Detected (Not Detect.); Vibrio Cholerae Not Detected (Not Detect.); Yersinia enterocolitica Not Detected (Not Detect.)
[2021-11-13 11:24] LABS: Rotavirus A Not Detected (Not Detect.); Sapovirus Not Detected (Not Detect.)
[2021-11-13 12:32] VITALS: RESP 18
[2021-11-13] MEDS: Morphine Sulfate 2 MG/ML CARTRIDGE IVPUSH ×2 (12:32→19:37)
--- NOTE | 2021-11-13 12:44 | PC.NURSE ---
PRN morphine given. Scheduled 2mg not given.
--- NOTE | 2021-11-13 14:44 | PM.EVENT ---
Event Note Date of Service: 11/13/21 Event Note: This patient already is seen and examined by hospitalist service this morning, seen and examined again: Patient denies any chest pain or shortness of breath Still has similar abdominal pain. Labs from this morning reviewed Physical exam :unchanged from h&p assessment and plan coordinated in APCs note, Agree with the plan in addition: coordinatedinh&P Start on clear liquid diet, continue antibiotic, pain management.
[2021-11-13 19:37] VITALS: RESP 14
[2021-11-13 21:42] VITALS: BP 104/66; PULSE 71; RESP 19; TEMP 36.1; O2SAT 100
[2021-11-13 23:34] VITALS: BP 121/81; PULSE 68; RESP 17; TEMP 36.4; O2SAT 99
[2021-11-14 02:53] LABS: Leukocytes Stool Qualitative MOD: 3-9/OIF (NEGATIVE)
[2021-11-14 03:54] VITALS: BP 95/63; PULSE 65; RESP 17; TEMP 36.3; O2SAT 96
[2021-11-14] MEDS: Enoxaparin Sodium 40 MG/0.4 ML SYRINGE SUBCUT (05:13)
[2021-11-14] MEDS: Piperacillin Sodium/Tazobactam 4.5 GM in 0.9 % Sodium Chloride 100 ML IV ×3 (05:14→16:51)
[2021-11-14 07:03] VITALS: BP 105/65; PULSE 86; RESP 18; TEMP 36.6; O2SAT 97
[2021-11-14 07:19] LABS: Thyroid Stimulating Hormone 2.53 uIU/mL (0.32-4.0)
[2021-11-14] MEDS: Multivitamin TABLET 1 TAB PO (08:19)
[2021-11-14] MEDS: Sertraline HCL 50 MG TABLET PO (08:19)
[2021-11-14] MEDS: Cholecalciferol (Vitamin D3) 25 MCG TABLET PO (08:19)
[2021-11-14] MEDS: 0.9 % Sodium Chloride Flush 3 ML SYRINGE IVFLUSH ×2 (08:20→16:51)
[2021-11-14] MEDS: Thiamine HCL 100 MG TABLET PO (08:20)
[2021-11-14] MEDS: Morphine Sulfate 2 MG/ML CARTRIDGE IVPUSH ×3 (08:20→20:38)
[2021-11-14] MEDS: Folic Acid 1 MG TABLET PO (08:20)
[2021-11-14 11:45] VITALS: BP 111/77; PULSE 72; RESP 16; TEMP 36.7; O2SAT 98
--- NOTE | 2021-11-14 12:38 | HO.PM.IMPN ---
Subjective Subjective Date of Service: 11/14/21 Interval History: Acute diverticulitis. Review of Systems still has abd pain, nausea ,diarrahae no fevers Physical Exam Vital Signs: Vital Signs: Last Vital Signs Temp 98.1 F 11/14/21 11:45 Pulse 72 11/14/21 11:45 Resp 16 11/14/21 11:45 BP 111/77 11/14/21 11:45 Pulse Ox 98 11/14/21 11:45 O2 Del Method 11/14/21 11:45 BMI result Body Mass Index 20.3 Appearance: Alert.? Oriented X3.? cvs: [id number], [id number] , no murmur res: clear to auscultation ,no rhonchii or wheezing abd: no rebound or guarding ,llq pain, bs present. ext pulses present , no cyanosis. neuro: axo3 , nonfocal. Objective Data Active Medications Acetaminophen (Acetaminophen 325 Mg Tablet) 650 mg PO Q6H PRN PRN Reason: Pain, Mild (Pain Scale 1-3) Enoxaparin Sodium (Enoxaparin Sodium 40 Mg/0.4 Ml Syringe) 40 mg SUBCUT Q24H [facility] Last Admin: 11/14/21 05:13 Dose: 40 mg Documented By: MARK ANTHONY Folic Acid (Folic Acid 1 Mg Tablet) 1 mg PO DAILY [facility] Last Admin: 11/14/21 08:20 Dose: 1 mg Documented By: GUNJAN Piperacillin Sod/Tazobactam (Sod 4.5 gm/ Sodium Chloride) 100 mls @ 200 mls/hr IV Q6H [facility] Last Infusion: 11/14/21 12:04 Dose: 0 mls/hr Documented By: GUNJAN Loperamide HCl (Loperamide Hcl 2 Mg Capsule) 2 mg PO Q4H PRN PRN Reason: Diarrhea Last Admin: 11/13/21 10:18 Dose: 2 mg Documented By: SERRANX Melatonin (Melatonin 3 Mg Tablet) 6 mg PO BEDTIME PRN PRN Reason: Insomnia Morphine Sulfate (Morphine Sulfate 2 Mg/Ml Cartridge) 2 mg IVPUSH Q4H PRN; Protocol PRN Reason: Pain, Severe (Pain Scale 7-10) Last Admin: 11/14/21 08:20 Dose: 2 mg Documented By: GUNJAN Multivitamins/Vitamin C (Multivitamin Tablet) 1 tab PO DAILY [facility] Last Admin: 11/14/21 08:19 Dose: 1 tab Documented By: GUNJAN Ondansetron HCl (Ondansetron Hcl 4 Mg/2 Ml Vial) 4 mg IVPUSH Q8H PRN PRN Reason: Nausea and Vomiting Last Admin: 11/13/21 13:01 Dose: 4 mg Documented By: SERRANX Sertraline HCl (Sertraline Hcl 50 Mg Tablet) 50 mg PO DAILY [facility] Last Admin: 11/14/21 08:19 Dose: 50 mg Documented By: GUNJAN Sodium Chloride (0.9 % Sodium Chloride Flush 3 Ml Syringe) 3 ml IVFLUSH QSHIFT [facility] Last Admin: 11/14/21 08:20 Dose: 3 ml Documented By: GUNJAN Thiamine HCl (Thiamine Hcl 100 Mg Tablet) 100 mg PO DAILY [facility] Last Admin: 11/14/21 08:20 Dose: 100 mg Documented By: GUNJAN Vitamin D (Cholecalciferol (Vitamin D3) 25 Mcg Tablet) 25 mcg PO DAILY [facility] Last Admin: 11/14/21 08:19 Dose: 25 mcg Documented By: GUNJAN Labs CBC & Chem 7: 11/13/21 07:32 11/13/21 07:31 Labs: Laboratory Results - last 24 hr 11/14/21 11/14/21 01:30 05:37 TSH 2.53 Stool Leukocytes, Qual MOD: 3-9/OIF Microbiology Microbiology Results: Microbiology 11/13/21 Unknown Urine Culture - Final Urine clean catch - Clean Catch Midstream 11/13/21 07:33 Blood Culture - Preliminary Blood - Venous No growth after 24 hours. 11/13/21 07:28 Blood Culture - Preliminary Blood - Venous No growth after 24 hours. Assessment and Plan (1) Diverticulitis: Status: Acute Plan 41-year-old female with pertinent history of alcohol use disorder, generalized anxiety disorder who presents to the emergency department with complaints of left-sided abdominal pain and diarrhea. ?Acute diverticulitis: abdpain/diarrahe ongoing onIV Zosyn day2 .? Failed p.o. ciprofloxacin and Flagyl.? Continue IV crystalloid resuscitation.? try clear liquids, ? Analgesics p.r.n. follow up outpatient Gi after diverticulitis improves. Diarrhea -?due to above. C diff toxin negative. Sent stool studies. May need specialist if symptoms do not improve Alcohol use disorder - states her previous drink was prior to labor day ie prior to [facility] admission.? Was previously on naltrexone which was stopped during previous hospitalization. Will continue to hold naltrexone as she is requiring opioid pain medications. 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 Lovenox 40 mg daily inaptient need:Acute diverticulitis, failed outpatient antibiotic therapy, need IV antibiotic as well as pain medication. Quality Stroke Does the patient have a stroke diagnosis?: No VTE Prior VTE?: No VTE Risk Level:: Medical - low VTE Device Contraindication: Treatment Not Indicated VTE Drug Contraindication: N/A - Med Ordered
--- NOTE | 2021-11-14 13:03 | MHC.CM.PN ---
EMR REVIEWED, PT ADMITTED W/DIVERTICULITIS, CM MET W/PT WHO REPORTS SHE HAS BEEN STAYING W/HER MOTHER SHE WAS STILL TO WEAK TO DO THE 14 STAIRS TO HER APT AND PLANS TO RETURN TO MOTHERS HOME, PT DENIES USE OF DME OR HOME SERVICES, PT IS CURRENTLY DECLINING TO MEET W/CARE TEAM OR ECONOMICS LECTURER AND REPORTS SHE DID NOT FOLLOW THROUGH W/MAT SHE DOES NOT HAVE TRANSPORTATION TO GET TO [facility] FOR APPTS. PT VERIFIES PCP JANET WEIR X2 AND HCP IS MOTHER ARMANDO [phone] VERIFIED AND COPY ON FILE ANTIC PT WILL D/C HOME NO SERVICES W/FAMILY FOR TRANSPORT
[2021-11-14] MEDS: Loperamide HCl 2 MG CAPSULE PO ×2 (13:55→20:41)
[2021-11-14 15:53] VITALS: BP 109/79; PULSE 82; RESP 18; TEMP 36.1; O2SAT 99
[2021-11-14 19:10] VITALS: BP 110/73; PULSE 90; RESP 18; TEMP 36.2; O2SAT 99
[2021-11-14 23:49] VITALS: BP 106/71; PULSE 87; RESP 18; TEMP 36.1; O2SAT 99
[2021-11-15] MEDS: 0.9 % Sodium Chloride Flush 3 ML SYRINGE IVFLUSH ×4 (00:36→20:53)
[2021-11-15 04:00] VITALS: BP 100/63; PULSE 78; RESP 18; TEMP 36.3; O2SAT 98
[2021-11-15] MEDS: Piperacillin Sodium/Tazobactam 4.5 GM in 0.9 % Sodium Chloride 100 ML IV ×5 (05:22→23:01)
[2021-11-15] MEDS: Enoxaparin Sodium 40 MG/0.4 ML SYRINGE SUBCUT (05:23)
[2021-11-15] MEDS: Loperamide HCl 2 MG CAPSULE PO ×3 (05:59→20:52)
[2021-11-15] MEDS: Morphine Sulfate 2 MG/ML CARTRIDGE IVPUSH ×3 (05:59→20:51)
[2021-11-15 07:42] VITALS: BP 110/78; PULSE 82; RESP 18; TEMP 37; O2SAT 97
[2021-11-15] MEDS: Folic Acid 1 MG TABLET PO (08:38)
[2021-11-15] MEDS: Cholecalciferol (Vitamin D3) 25 MCG TABLET PO (08:38)
[2021-11-15] MEDS: Multivitamin TABLET 1 TAB PO (08:38)
[2021-11-15] MEDS: Thiamine HCL 100 MG TABLET PO (08:38)
[2021-11-15] MEDS: Sertraline HCL 50 MG TABLET PO (08:39)
--- NOTE | 2021-11-15 10:12 | MHC.RECOVRN ---
T/W met with pt, pt alert, oriented, sitting up in bed when t/w entered room. Pt reports last ETOH use before Labor Day, pt reports no ETOH cravings. Pt states after stay at [facility], stayed at Mothers home. Pt states a worker from [facility], calls to check in on pt regularly. Pt reports it was that worker Felecia who linked pt up with an RN to discuss ongoing issues after hospital d/c. T/W and pt reviewed resources, discussed referral for [employer] Supervisor. Pt agreeable and interested. Pt states in the past had disaster recovery analyst, found it helpful. Pt reminded that as pt identified transportation as barrier in the past, pts PCP can continue to prescribe Naltrexone if pt continues after d/c. T/W will put in disaster recovery analyst referral and provide contact information for future support.
[2021-11-15 12:00] VITALS: BP 86/50; RESP 18; TEMP 36.6; O2SAT 94
[2021-11-15] MEDS: ondansetron HCL 4 MG/2 ML VIAL IVPUSH ×2 (12:27→20:51)
[2021-11-15 12:36] VITALS: BP 111/77; PULSE 104
--- NOTE | 2021-11-15 15:49 | HO.PM.IMPN ---
Subjective Subjective Date of Service: 11/15/21 Interval History: Acute diverticulitis. Review of Systems still has abd pain, nausea ,diarrahae no fevers Patient does not want to try Augmentin because she had side effect in the past with abdominal pain, diarrhea, vomiting. Given Ceftin and patient vomited with Ceftin also. Physical Exam Vital Signs: Vital Signs: Last Vital Signs Temp 97.8 F 11/15/21 12:00 Pulse 104 H 11/15/21 12:36 Resp 18 11/15/21 12:00 BP 111/77 11/15/21 12:36 Pulse Ox 94 11/15/21 12:00 O2 Del Method 11/15/21 12:00 BMI result Body Mass Index 20.3 Appearance: Alert.? Oriented X3.? cvs: rrr, [id number] , no murmur res: clear to auscultation ,no rhonchii or wheezing abd: no rebound or guarding ,llq pain, bs present. ext pulses present , no cyanosis. neuro: axo3 , nonfocal. Objective Data Active Medications Acetaminophen (Acetaminophen 325 Mg Tablet) 650 mg PO Q6H PRN PRN Reason: Pain, Mild (Pain Scale 1-3) Enoxaparin Sodium (Enoxaparin Sodium 40 Mg/0.4 Ml Syringe) 40 mg SUBCUT Q24H [facility] Last Admin: 11/15/21 05:23 Dose: 40 mg Documented By: BABITA Comments: PT WAS SLEEPING Folic Acid (Folic Acid 1 Mg Tablet) 1 mg PO DAILY [facility] Last Admin: 11/15/21 08:38 Dose: 1 mg Documented By: BEE Loperamide HCl (Loperamide Hcl 2 Mg Capsule) 2 mg PO Q4H PRN PRN Reason: Diarrhea Last Admin: 11/15/21 14:34 Dose: 2 mg Documented By: BEE Melatonin (Melatonin 3 Mg Tablet) 6 mg PO BEDTIME PRN PRN Reason: Insomnia Metronidazole (Metronidazole 500 Mg Tablet) 500 mg PO Q12H [facility] Last Admin: 11/15/21 15:42 Dose: 500 mg Documented By: BEE Morphine Sulfate (Morphine Sulfate 2 Mg/Ml Cartridge) 2 mg IVPUSH Q4H PRN; Protocol PRN Reason: Pain, Severe (Pain Scale 7-10) Last Admin: 11/15/21 10:52 Dose: 2 mg Documented By: BEE Multivitamins/Vitamin C (Multivitamin Tablet) 1 tab PO DAILY [facility] Last Admin: 11/15/21 08:38 Dose: 1 tab Documented By: BEE Ondansetron HCl (Ondansetron Hcl 4 Mg/2 Ml Vial) 4 mg IVPUSH Q8H PRN PRN Reason: Nausea and Vomiting Last Admin: 11/15/21 12:27 Dose: 4 mg Documented By: BEE Ondansetron HCl (Ondansetron Odt 4 Mg Tab.Rapdis) 4 mg TRANSLINGU Q6H PRN PRN Reason: Nausea Sertraline HCl (Sertraline Hcl 50 Mg Tablet) 50 mg PO DAILY [facility] Last Admin: 11/15/21 08:39 Dose: 50 mg Documented By: BEE Sodium Chloride (0.9 % Sodium Chloride Flush 3 Ml Syringe) 3 ml IVFLUSH QSHIFT [facility] Last Admin: 11/15/21 08:39 Dose: 3 ml Documented By: BEE Thiamine HCl (Thiamine Hcl 100 Mg Tablet) 100 mg PO DAILY [facility] Last Admin: 11/15/21 08:38 Dose: 100 mg Documented By: BEE Vitamin D (Cholecalciferol (Vitamin D3) 25 Mcg Tablet) 25 mcg PO DAILY [facility] Last Admin: 11/15/21 08:38 Dose: 25 mcg Documented By: BEE Labs CBC & Chem 7: 11/13/21 07:32 11/13/21 07:31 Microbiology Microbiology Results: Microbiology 11/13/21 07:28 Blood Culture - Preliminary Blood - Venous No growth after 48 hours. 11/13/21 07:33 Blood Culture - Preliminary Blood - Venous No growth after 48 hours. Assessment and Plan (1) Diverticulitis: Status: Acute Plan 41-year-old female with pertinent history of alcohol use disorder, generalized anxiety disorder who presents to the emergency department with complaints of left-sided abdominal pain and diarrhea. ?Acute diverticulitis: abdpain/diarrahe ongoing Patient does not want to try Augmentin because she had side effect in the past with abdominal pain, diarrhea, vomiting. Given Ceftin and patient vomited with Ceftin also. onIV Zosyn day3.? Failed p.o. ciprofloxacin and Flagyl.? Continue IV crystalloid resuscitation.? try clear liquids, ? Analgesics p.r.n. follow up outpatient Gi after diverticulitis improves. Id eval added -patient might end up completing iv antibiotics if does not tolerate po antibiotics as above. Diarrhea -?due to above. C diff toxin negative. Sent stool studies. May need specialist if symptoms do not improve Alcohol use disorder - states her previous drink was prior to day ie prior to [facility] admission.? Was previously on naltrexone which was stopped during previous hospitalization. Will continue to hold naltrexone as she is requiring opioid pain medications. added contracting specialist Generalized anxiety disorder -Continue sertraline ?DVT prophylaxis:? Lovenox 40 mg daily inaptient need:Acute diverticulitis, failed outpatient antibiotic therapy, need IV antibiotic as well as pain medication,also could not able to tolerate po antitbiotics . Quality Stroke Does the patient have a stroke diagnosis?: No VTE Prior VTE?: No VTE Risk Level:: Medical - low VTE Device Contraindication: Treatment Not Indicated VTE Drug Contraindication: N/A - Med Ordered
[2021-11-15 15:54] VITALS: BP 119/67; PULSE 103; RESP 18; TEMP 36.5; O2SAT 98
[2021-11-15 19:52] VITALS: BP 103/68; PULSE 97; RESP 19; TEMP 36.5; O2SAT 98
[2021-11-16] VITALS (8 sets, daily range): BP systolic 97–119; BP diastolic 64–85; PULSE 76–108; RESP 16–19; TEMP 36–36.8; O2SAT 95–99
[2021-11-16] MEDS: Enoxaparin Sodium 40 MG/0.4 ML SYRINGE SUBCUT (04:35)
[2021-11-16] MEDS: Piperacillin Sodium/Tazobactam 4.5 GM in 0.9 % Sodium Chloride 100 ML IV ×4 (04:36→22:55)
[2021-11-16] MEDS: Sertraline HCL 50 MG TABLET PO (08:37)
[2021-11-16] MEDS: Multivitamin TABLET 1 TAB PO (08:37)
[2021-11-16] MEDS: Thiamine HCL 100 MG TABLET PO (08:37)
[2021-11-16] MEDS: Folic Acid 1 MG TABLET PO (08:37)
[2021-11-16] MEDS: 0.9 % Sodium Chloride Flush 3 ML SYRINGE IVFLUSH ×3 (08:37→23:30)
[2021-11-16] MEDS: Cholecalciferol (Vitamin D3) 25 MCG TABLET PO (08:38)
[2021-11-16] MEDS: Loperamide HCl 2 MG CAPSULE PO (08:38)
[2021-11-16] MEDS: ondansetron HCL 4 MG/2 ML VIAL IVPUSH (10:16)
--- NOTE | 2021-11-16 10:16 | P.PNIM_ITS ---
Subjective Subjective Date of Service: 11/16/21 Review of Systems Follow-up diverticulitis Mild pain still present Sitting up in bed eating breakfast Physical Exam Vital Signs: Vital Signs: Last Vital Signs Temp 98.2 F 11/16/21 07:26 Pulse 84 11/16/21 07:26 Resp 16 11/16/21 07:26 BP 117/80 11/16/21 07:26 Pulse Ox 98 11/16/21 07:26 O2 Del Method 11/16/21 07:26 BMI result Body Mass Index 20.3 Appearing in no acute distress lung sounds are clear to auscultation heart regular rate rhythm, clear S1, S2 positive bowel sounds, abdomen is soft, nontender neuro patient is alert x3, no focal deficits Objective Data Active Medications Acetaminophen (Acetaminophen 325 Mg Tablet) 650 mg PO Q6H PRN PRN Reason: Pain, Mild (Pain Scale 1-3) Enoxaparin Sodium (Enoxaparin Sodium 40 Mg/0.4 Ml Syringe) 40 mg SUBCUT Q24H [facility] Last Admin: 11/16/21 04:35 Dose: 40 mg Documented By: MARISELA Folic Acid (Folic Acid 1 Mg Tablet) 1 mg PO DAILY [facility] Last Admin: 11/16/21 08:37 Dose: 1 mg Documented By: BEE Piperacillin Sod/Tazobactam (Sod 4.5 gm/ Sodium Chloride) 100 mls @ 200 mls/hr IV Q6H [facility] Last Infusion: 11/16/21 05:13 Dose: 0 mls/hr Documented By: MARISELA Loperamide HCl (Loperamide Hcl 2 Mg Capsule) 2 mg PO Q4H PRN PRN Reason: Diarrhea Last Admin: 11/16/21 08:38 Dose: 2 mg Documented By: BEE Melatonin (Melatonin 3 Mg Tablet) 6 mg PO BEDTIME PRN PRN Reason: Insomnia Morphine Sulfate (Morphine Sulfate 2 Mg/Ml Cartridge) 2 mg IVPUSH Q4H PRN; Protocol PRN Reason: Pain, Severe (Pain Scale 7-10) Last Admin: 11/15/21 20:51 Dose: 2 mg Documented By: MARISELA Multivitamins/Vitamin C (Multivitamin Tablet) 1 tab PO DAILY [facility] Last Admin: 11/16/21 08:37 Dose: 1 tab Documented By: BEE Ondansetron HCl (Ondansetron Hcl 4 Mg/2 Ml Vial) 4 mg IVPUSH Q8H PRN PRN Reason: Nausea and Vomiting Last Admin: 11/15/21 20:51 Dose: 4 mg Documented By: MARISELA Ondansetron HCl (Ondansetron Odt 4 Mg Tab.Rapdis) 4 mg TRANSLINGU Q6H PRN PRN Reason: Nausea Sertraline HCl (Sertraline Hcl 50 Mg Tablet) 50 mg PO DAILY [facility] Last Admin: 11/16/21 08:37 Dose: 50 mg Documented By: BEE Sodium Chloride (0.9 % Sodium Chloride Flush 3 Ml Syringe) 3 ml IVFLUSH QSHIFT [facility] Last Admin: 11/16/21 08:37 Dose: 3 ml Documented By: BEE Thiamine HCl (Thiamine Hcl 100 Mg Tablet) 100 mg PO DAILY [facility] Last Admin: 11/16/21 08:37 Dose: 100 mg Documented By: EBE Vitamin D (Cholecalciferol (Vitamin D3) 25 Mcg Tablet) 25 mcg PO DAILY [facility] Last Admin: 11/16/21 08:38 Dose: 25 mcg Documented By: BEE Labs CBC & Chem 7: 11/13/21 07:32 11/13/21 07:31 Microbiology Microbiology Results: Microbiology 11/13/21 07:28 Blood Culture - Preliminary Blood - Venous No growth after 48 hours. 11/13/21 07:33 Blood Culture - Preliminary Blood - Venous No growth after 48 hours. Assessment and Plan (1) Diverticulitis: Status: Acute Plan 41-year-old female with pertinent history of alcohol use disorder, generalized anxiety disorder who presents to the emergency department with complaints of left-sided abdominal pain and diarrhea. Acute diverticulitis Continued ongoing pain, but able to eat solid food Unfortunately failed oral antibiotics due to vomiting Has been on Zosyn Pain management Diarrhea Likely related to diverticulitis C diff toxin and stool studies negative Discussed with GI ? Alcohol use disorder Denies any withdrawal symptoms had previously been on naltrexone, last drink on Seen and evaluated by recovery team, offered referrals Generalized anxiety disorder Continue sertraline DVT prophylaxis:? Lovenox [address] Maria Full code Continue hospitalization for treatment of Acute diverticulitis, failed outpatient antibiotic therapy, need IV antibiotic as well as pain medication,also could not able to tolerate po antitbiotics . Quality Stroke Does the patient have a stroke diagnosis?: No VTE Prior VTE?: No VTE Risk Level:: Medical - low VTE Device Contraindication: Treatment Not Indicated VTE Drug Contraindication: N/A - Med Ordered
[2021-11-16] MEDS: Morphine Sulfate 2 MG/ML CARTRIDGE IVPUSH ×3 (13:14→23:33)
--- NOTE | 2021-11-16 14:08 | MHC.CM.PN ---
PATIENT STILL REQUIRING IV ABX. NO PLAN FOR DC TODAY
--- NOTE | 2021-11-16 14:53 | W.PM.IDCN ---
History of Present Illness Data of Consult Service Date: 11/16/21 Requesting physician: Kalyn Field Primary Care Provider: EVERARDO Metz Reason for consult: abdominal pain She presents with bilateral lower quadrant pain. She had prior E coli abdominal abscess and had drained 11/02. She still has discomfort and was given Cipro and flagyl po and not able to tolerate. She cannot take po due to vomiting. Review of Systems Review of Systems: Yes all other systems are reviewed and are negative [facility] Past Medical History Medical History Alcohol abuse Anxiety Diverticulitis Pelvic abscess in female Functional capacity: independent ambulation Family History Family History Father Medical history unknown Mother Medical history unknown Paternal Grandfather Cancer Sister Epilepsy Daughter In good health Son In good health Family history: reviewed and not pertinent Surgical History Surgical History No pertinent past surgical history Social History Social History Household Members: None Housing: Apartment Do you presently have visiting nurse or other home services: No Alcohol intake: current Alcohol intake frequency: 3 or more drinks per day Alcohol type: hard liquor Patient Tobacco Use Status: Former Tobacco user Tobacco use type: Cigarette e-Cigarette/Vaping Use: Former Use Second Hand Smoke Exposure: No Advance Directives Date on File: 01/25/21 service: No Current occupational status: unemployed Cognitive needs: No Hearing needs: No Vision needs: No Meds Allergies Allergy/AdvReac Type Severity Reaction Status Date / Time amoxicillin [From Augmentin] Allergy Intermediate Abdominal Verified 11/10/21 14:24 Pain clavulanic acid Allergy Intermediate Abdominal Verified 11/10/21 14:24 [From Augmentin] Pain Sulfa (Sulfonamide Allergy Mild RASH Verified 11/10/21 14:24 Antibiotics) [SULFA (SULFONAMIDE ANTIBIOTICS)] magnesium AdvReac Diarrhea Verified 11/10/21 14:24 Active Medications: Current Medications Acetaminophen (Acetaminophen 325 Mg Tablet) 650 mg PO Q6H PRN PRN Reason: Pain, Mild (Pain Scale 1-3) Enoxaparin Sodium (Enoxaparin Sodium 40 Mg/0.4 Ml Syringe) 40 mg SUBCUT Q24H [facility] Last Admin: 11/16/21 04:35 Dose: 40 mg Folic Acid (Folic Acid 1 Mg Tablet) 1 mg PO DAILY [facility] Last Admin: 11/16/21 08:37 Dose: 1 mg Piperacillin Sod/Tazobactam (Sod 4.5 gm/ Sodium Chloride) 100 mls @ 200 mls/hr IV Q6H [facility] Last Infusion: 11/16/21 11:03 Dose: Infused Loperamide HCl (Loperamide Hcl 2 Mg Capsule) 2 mg PO Q4H PRN PRN Reason: Diarrhea Last Admin: 11/16/21 08:38 Dose: 2 mg Melatonin (Melatonin 3 Mg Tablet) 6 mg PO BEDTIME PRN PRN Reason: Insomnia Morphine Sulfate (Morphine Sulfate 2 Mg/Ml Cartridge) 2 mg IVPUSH Q4H PRN; Protocol PRN Reason: Pain, Severe (Pain Scale 7-10) Last Admin: 11/16/21 13:14 Dose: 2 mg Multivitamins/Vitamin C (Multivitamin Tablet) 1 tab PO DAILY [facility] Last Admin: 11/16/21 08:37 Dose: 1 tab Ondansetron HCl (Ondansetron Hcl 4 Mg/2 Ml Vial) 4 mg IVPUSH Q8H PRN PRN Reason: Nausea and Vomiting Last Admin: 11/16/21 10:16 Dose: 4 mg Ondansetron HCl (Ondansetron Odt 4 Mg Tab.Rapdis) 4 mg TRANSLINGU Q6H PRN PRN Reason: Nausea Sertraline HCl (Sertraline Hcl 50 Mg Tablet) 50 mg PO DAILY [facility] Last Admin: 11/16/21 08:37 Dose: 50 mg Sodium Chloride (0.9 % Sodium Chloride Flush 3 Ml Syringe) 3 ml IVFLUSH QSHIFT [facility] Last Admin: 11/16/21 08:37 Dose: 3 ml Thiamine HCl (Thiamine Hcl 100 Mg Tablet) 100 mg PO DAILY [facility] Last Admin: 11/16/21 08:37 Dose: 100 mg Vitamin D (Cholecalciferol (Vitamin D3) 25 Mcg Tablet) 25 mcg PO DAILY [facility] Last Admin: 11/16/21 08:38 Dose: 25 mcg Home Medications Medication Instructions Recorded Confirmed Last Taken Type naltrexone 50 mg tablet 50 mg PO DAILY 04/20/21 11/13/21 1 Month Ago History ~08/12/21 melatonin 5 mg tablet 5 mg PO BEDTIME PRN Sleep 07/29/21 11/13/21 1 Month Ago History ~08/12/21 cholecalciferol (vitamin D3) 25 25 mcg PO DAILY 09/11/21 11/13/21 1 Month Ago History mcg (1,000 unit) tablet ~08/12/21 hyoscyamine sulfate 0.125 mg 0.125 mg PO Q4H PRN cramps 11/10/21 11/13/21 11/12/21 History sublingual tablet ondansetron 4 mg disintegrating 4 mg PO Q8H PRN Nausea 11/10/21 11/13/21 Unknown History tablet Physical Exam Vital Signs: Vital Signs: Last Vital Signs Temp 98.2 F 11/16/21 11:16 Pulse 106 H 11/16/21 11:16 Resp 16 11/16/21 11:16 BP 109/79 11/16/21 11:16 Pulse Ox 98 11/16/21 11:16 O2 Del Method 11/16/21 11:16 BMI result Body Mass Index 20.3 Const: General: cooperative HEENT: Head: Yes normal to inspection Face and sinus: Yes normal facial exam Mouth: Normal oral and palatal mucosa present Teeth and gingiva: dentition normal Eyes: General: appearance normal, both eyes and all related structures Pupils: Equal, round and reactive pupils present Resp: Effort & Inspection: normal respiratory effort Cardio: Rate: regular rate Rhythm: regular rhythm GI: Palpation (GI): Soft to palpation and Tenderness to palpation present (GI) (lower abdomen) : General: Yes no CVA tenderness Back/Spine/Pelvis: Back: no CVA tenderness Skin: General skin exam: no rashes or lesions noted Neuro: General: moves all extremities Cranial nerves: Yes Equal, round and reactive pupils present Extrem: General: Yes normal to inspection Psych: Appearance: grossly normal Results Labs CBC & Chem 7: 11/13/21 07:32 11/13/21 07:31 Microbiology Microbiology Results: Microbiology 11/13/21 07:28 Blood - Venous Blood Culture - Preliminary No growth after 48 hours. 11/13/21 07:33 Blood - Venous Blood Culture - Preliminary No growth after 48 hours. 11/13/21 Unknown Urine clean catch - Clean Catch Midstream Urine Culture - Final Assessment and Plan (1) Diverticulitis: Status: Acute She has probable abdominal organisms including E coli and anerobes She has not had colonoscopy yet because she has been ill Plan Continue IV antibiotics like Zosyn for 5-7 days Follow GI colonoscopy when improved
[2021-11-16] MEDS: Ondansetron ODT 4 MG TAB.RAPDIS TRANSLINGU (17:30)
[2021-11-17 03:12] VITALS: BP 102/62; PULSE 82; RESP 17; TEMP 36.1; O2SAT 97
[2021-11-17] MEDS: Piperacillin Sodium/Tazobactam 4.5 GM in 0.9 % Sodium Chloride 100 ML IV ×4 (05:14→23:14)
[2021-11-17] MEDS: Enoxaparin Sodium 40 MG/0.4 ML SYRINGE SUBCUT (05:15)
[2021-11-17] MEDS: Loperamide HCl 2 MG CAPSULE PO ×3 (05:18→14:05)
[2021-11-17] MEDS: Ondansetron ODT 4 MG TAB.RAPDIS TRANSLINGU ×2 (05:18→18:46)
[2021-11-17] MEDS: Morphine Sulfate 2 MG/ML CARTRIDGE IVPUSH ×5 (05:26→23:19)
[2021-11-17 06:54] VITALS: BP 115/57; PULSE 79; RESP 18; TEMP 36.1; O2SAT 97
[2021-11-17] MEDS: Multivitamin TABLET 1 TAB PO (09:30)
[2021-11-17] MEDS: Sertraline HCL 50 MG TABLET PO (09:30)
[2021-11-17] MEDS: Cholecalciferol (Vitamin D3) 25 MCG TABLET PO (09:31)
[2021-11-17] MEDS: 0.9 % Sodium Chloride Flush 3 ML SYRINGE IVFLUSH ×3 (09:31→23:15)
[2021-11-17] MEDS: Thiamine HCL 100 MG TABLET PO (09:31)
[2021-11-17] MEDS: Folic Acid 1 MG TABLET PO (09:31)
--- NOTE | 2021-11-17 09:48 | HO.PM.IMPN ---
Subjective Subjective Date of Service: 11/17/21 Review of Systems Follow-up diverticulitis Mild pain still present Sitting up in bed eating breakfast Physical Exam Vital Signs: Vital Signs: Last Vital Signs Temp 97 F 11/17/21 06:54 Pulse 79 11/17/21 06:54 Resp 18 11/17/21 06:54 BP 115/57 L 11/17/21 06:54 Pulse Ox 97 11/17/21 06:54 O2 Del Method 11/17/21 06:54 BMI result Body Mass Index 20.3 Appearing in no acute distress lung sounds are clear to auscultation heart regular rate rhythm, clear S1, S2 positive bowel sounds, abdomen is soft, nontender neuro patient is alert x3, no focal deficits Objective Data Active Medications Acetaminophen (Acetaminophen 325 Mg Tablet) 650 mg PO Q6H PRN PRN Reason: Pain, Mild (Pain Scale 1-3) Enoxaparin Sodium (Enoxaparin Sodium 40 Mg/0.4 Ml Syringe) 40 mg SUBCUT Q24H [facility] Last Admin: 11/17/21 05:15 Dose: 40 mg Documented By: SARMAD Folic Acid (Folic Acid 1 Mg Tablet) 1 mg PO DAILY [facility] Last Admin: 11/17/21 09:31 Dose: 1 mg Documented By: SARMAD Piperacillin Sod/Tazobactam (Sod 4.5 gm/ Sodium Chloride) 100 mls @ 200 mls/hr IV Q6H [facility] Last Infusion: 11/17/21 05:59 Dose: 0 mls/hr Documented By: SARMAD Loperamide HCl (Loperamide Hcl 2 Mg Capsule) 2 mg PO Q4H PRN PRN Reason: Diarrhea Last Admin: 11/17/21 09:39 Dose: 2 mg Documented By: SARMAD Melatonin (Melatonin 3 Mg Tablet) 6 mg PO BEDTIME PRN PRN Reason: Insomnia Morphine Sulfate (Morphine Sulfate 2 Mg/Ml Cartridge) 2 mg IVPUSH Q4H PRN; Protocol PRN Reason: Pain, Severe (Pain Scale 7-10) Last Admin: 11/17/21 09:39 Dose: 2 mg Documented By: SARMAD Multivitamins/Vitamin C (Multivitamin Tablet) 1 tab PO DAILY [facility] Last Admin: 11/17/21 09:30 Dose: 1 tab Documented By: SARMAD Ondansetron HCl (Ondansetron Hcl 4 Mg/2 Ml Vial) 4 mg IVPUSH Q8H PRN PRN Reason: Nausea and Vomiting Last Admin: 11/16/21 10:16 Dose: 4 mg Documented By: BEE Ondansetron HCl (Ondansetron Odt 4 Mg Tab.Rapdis) 4 mg TRANSLINGU Q6H PRN PRN Reason: Nausea Last Admin: 11/17/21 05:18 Dose: 4 mg Documented By: SARMAD Sertraline HCl (Sertraline Hcl 50 Mg Tablet) 50 mg PO DAILY [facility] Last Admin: 11/17/21 09:30 Dose: 50 mg Documented By: SARMAD Sodium Chloride (0.9 % Sodium Chloride Flush 3 Ml Syringe) 3 ml IVFLUSH QSHIFT [facility] Last Admin: 11/17/21 09:31 Dose: 3 ml Documented By: SARMAD Thiamine HCl (Thiamine Hcl 100 Mg Tablet) 100 mg PO DAILY [facility] Last Admin: 11/17/21 09:31 Dose: 100 mg Documented By: SARMAD Vitamin D (Cholecalciferol (Vitamin D3) 25 Mcg Tablet) 25 mcg PO DAILY [facility] Last Admin: 11/17/21 09:31 Dose: 25 mcg Documented By: SARMAD Labs CBC & Chem 7: 11/13/21 07:32 11/13/21 07:31 Assessment and Plan (1) Diverticulitis: Status: Acute Plan 41-year-old female with pertinent history of alcohol use disorder, generalized anxiety disorder who presents to the emergency department with complaints of left-sided abdominal pain and diarrhea. Acute diverticulitis Continued ongoing pain, but able to eat solid food Unfortunately failed oral antibiotics due to vomiting Has been on Zosyn day 3/5 Pain management ID following Diarrhea. At least 6 episodes of watery stool today Likely related to diverticulitis vs other etiology C diff toxin and stool studies negative Consultation for Dr. Lebron pending, using Imodium for diarrhea ? Alcohol use disorder Denies any withdrawal symptoms had previously been on naltrexone, last drink on Seen and evaluated by recovery team, offered referrals Generalized anxiety disorder Continue sertraline DVT prophylaxis:? Lovenox [address] Maria Full code Disposition discharge home when IV Zosyn is completed as patient has not tolerated oral antibiotics Continue hospitalization for treatment of Acute diverticulitis, failed outpatient antibiotic therapy, need IV antibiotic as well as pain medication,also could not able to tolerate po antitbiotics . Quality Stroke Does the patient have a stroke diagnosis?: No VTE Prior VTE?: No VTE Risk Level:: Medical - low VTE Device Contraindication: Treatment Not Indicated VTE Drug Contraindication: N/A - Med Ordered
[2021-11-17 11:07] LABS: Blood Urea Nitrogen 2 mg/dL (9-16); Calcium 8.2 mg/dL (8.4-10.2); Estimated Glomerular Filt Rate > 60; Glucose Random 94 mg/dL (60-115); Magnesium 1.5 mg/dL (1.6-2.6)
[2021-11-17 11:44] LABS: Anion Gap 15 (12-20); Carbon Dioxide 20 mmol/L (22-29); Chloride 106 mmol/L (96-108); Potassium 3.4 mmol/L (3.3-5.1); Sodium 138 mmol/L (135-145)
--- NOTE | 2021-11-17 14:10 | MHC.CM.PN ---
PLAN IS 2 MORE DAYS OF IV ZYVOX AND DC HOME MAY TALK WITH RECOVERY TEAM AGAIN
[2021-11-17 15:43] VITALS: BP 106/75; PULSE 77; RESP 18; TEMP 36.2; O2SAT 97
--- NOTE | 2021-11-17 15:55 | PM.EVENT ---
Event Note Date of Service: 11/17/21 Event Note: GI consult dictated diarrhea probably secondary to recent abx. recheck cdiff, cont antidiarrheal rx probiotic (yogurt)
[2021-11-17 19:29] VITALS: BP 111/70; PULSE 86; RESP 17; TEMP 36.5; O2SAT 98
[2021-11-17] MEDS: Loperamide HCl 2 MG CAPSULE 4 MG PO (23:18)
[2021-11-18] VITALS (7 sets, daily range): BP systolic 98–126; BP diastolic 58–87; PULSE 62–92; RESP 16–20; TEMP 36–36.6; O2SAT 95–99
--- NOTE | 2021-11-18 01:47 | CONS_ITS ---
DATE OF SERVICE: 11/17/2021 REFERRING PHYSICIAN: Kalyn Field NP REASON FOR CONSULTATION: Diarrhea. HISTORY OF PRESENT ILLNESS: The patient is a pleasant 41-year-old woman known to me from prior evaluation. She was admitted to the hospital because of abdominal pain and diarrhea on November 13. Her prior history is that she had been at [facility] with an abscess in the abdomen, which was drained after she was transferred to [facility]. This was thought related to a diverticular process. She was discharged and prescribed Augmentin, which she states she is allergic to, so this was not filled by her pharmacist. Subsequently, she was started on ciprofloxacin and Flagyl, but had persistent symptoms of abdominal pain and diarrhea, which began after she started antibiotics. She was seen by her primary care provider and told to stop the antibiotics. Subsequently, she went to the Emergency Department on November 10. She was evaluated and underwent CT scanning, which showed diverticulitis and she was advised to restart antibiotics. Symptoms persisted despite the oral antibiotics and she returned to the emergency room where she was admitted to the hospital and started on intravenous antibiotics. CT scanning was done on November 10 and November 13. This was reviewed and shows mild wall thickening with inflammation of the sigmoid colon suggestive of diverticulitis without free air. Since admission, she has been treated with intravenous antibiotics and has had persistent diarrheal symptoms. Stool testing has been obtained including a GI panel, which has been negative. Testing has also been done for C. diff, which has been negative. Stool testing did show white blood cells. The patient denies any prior history of colitis. She has not undergone colonoscopy, but this was planned after her previous admission in August of this year for diarrhea and alcoholic liver disease. CT scanning at that time did not show any evidence of acute diverticulitis or colitis. PAST MEDICAL HISTORY: 1. Alcohol abuse. 2. Anxiety. 3. Diverticulitis as above. CURRENT MEDICATIONS: Her current medication list is reviewed in the chart. ALLERGIES: MULTIPLE MEDICATION ALLERGIES ARE REVIEWED. FAMILY HISTORY: This is reviewed with the patient and is noncontributory. SOCIAL HISTORY: There is no current of tobacco abuse. Alcohol, she was drinking up until her admission to [facility]. REVIEW OF SYSTEMS: SKIN: No pruritus. HEENT: Negative. CARDIOPULMONARY: No shortness of breath or chest pain. GASTROINTESTINAL: As above. GENITOURINARY: Negative. NEUROPSYCHIATRIC: Negative. PHYSICAL EXAMINATION: GENERAL: Shows a pleasant female, lying comfortably in bed. VITAL SIGNS: Reviewed in the electronic medical record and are stable. She is afebrile. SKIN: Anicteric and pale. HEENT: Shows no scleral icterus. NECK: Without lymphadenopathy or thyromegaly. LUNGS: Clear. HEART: Shows regular rate and rhythm. S1 and S2. No murmur. ABDOMEN: Soft. There is some tenderness to both lower quadrants on palpation. There is no guarding or rebound. EXTREMITIES: Without edema. LABORATORY DATA: Reviewed as are her CAT scans. IMPRESSION: Diarrhea. This appears most consistent with antibiotic-associated diarrhea given her recent antibiotic usage. I did recommend that she begin using probiotics in the form yogurt with her meals. I would not recommend colonoscopy urgently at this time given her recent abscess that is possibly related to diverticulitis. I would continue to treat her with antibiotics as you are doing and use Imodium liberally to control her diarrheal symptoms. She will need colonoscopy in the future, but I would defer this until after her diverticulitis has resolved. Thanks for asking me to see her. I will follow her in the hospital with you. MD ALFREDA Stone/JOSE G / [phone]
[2021-11-18] MEDS: Enoxaparin Sodium 40 MG/0.4 ML SYRINGE SUBCUT (05:53)
[2021-11-18] MEDS: Piperacillin Sodium/Tazobactam 4.5 GM in 0.9 % Sodium Chloride 100 ML IV ×4 (05:53→22:37)
--- NOTE | 2021-11-18 08:12 | P.PNIM_ITS ---
Subjective Subjective Date of Service: 11/18/21 Interval History: Follow-up diverticulitis Pt reports improving pain LLQ/RLQ, now rated 7/10, states is affecting her sleep. Continues with diarrhea but states is improving with immodium. Intermittent nausea. Tolerating regular diet. Review of Systems General: No fevers, malaise, unintentional weight loss Cardiovascular: No chest pain, palpitations, or leg edema Respiratory: No shortness of breath, wheezing, cough GI: +abd pain, +nausea, +diarrhea. No vomiting, constipation, melena, hematochezia Neuro: No headaches, weakness, paresthesias Skin: No rashes or lesions Physical Exam Vital Signs: Vital Signs: Last Vital Signs Temp 96.8 F 11/18/21 07:00 Pulse 62 11/18/21 07:00 Resp 16 11/18/21 07:00 BP 122/58 L 11/18/21 07:00 Pulse Ox 98 11/18/21 07:00 O2 Del Method 11/18/21 07:00 BMI result Body Mass Index 20.3 Constitutional - Awake and Alert, No apparent distress Eyes - PERRLA, EOMI Cardiovascular - S1S2, RRR, No edema Respiratory - Normal lung expansion, Normal respiratory effort, No respiratory distress, CTA bilaterally Gastrointestinal - mild ttp lower quadrants. ND; +BS; No rebound or guarding Extremities - no calf tenderness bilaterally, no swelling Skin - Warm/Dry Neurological - Alert & oriented x3, No focal deficit Objective Data Active Medications Acetaminophen (Acetaminophen 325 Mg Tablet) 650 mg PO Q6H PRN PRN Reason: Pain, Mild (Pain Scale 1-3) Enoxaparin Sodium (Enoxaparin Sodium 40 Mg/0.4 Ml Syringe) 40 mg SUBCUT Q24H [facility] Last Admin: 11/18/21 05:53 Dose: 40 mg Documented By: NANCY Folic Acid (Folic Acid 1 Mg Tablet) 1 mg PO DAILY [facility] Last Admin: 11/17/21 09:31 Dose: 1 mg Documented By: SARMAD Piperacillin Sod/Tazobactam (Sod 4.5 gm/ Sodium Chloride) 100 mls @ 200 mls/hr IV Q6H [facility] Last Infusion: 11/18/21 06:58 Dose: 0 mls/hr Documented By: NANCY Loperamide HCl (Loperamide Hcl 2 Mg Capsule) 2 mg PO Q4H PRN PRN Reason: Diarrhea Last Admin: 11/17/21 14:05 Dose: 2 mg Documented By: SARMAD Loperamide HCl (Loperamide Hcl 2 Mg Capsule) 4 mg PO Q4H PRN PRN Reason: severe diarrhea Last Admin: 11/17/21 23:18 Dose: 4 mg Documented By: NANCY Melatonin (Melatonin 3 Mg Tablet) 6 mg PO BEDTIME PRN PRN Reason: Insomnia Multivitamins/Vitamin C (Multivitamin Tablet) 1 tab PO DAILY [facility] Last Admin: 11/17/21 09:30 Dose: 1 tab Documented By: SARMAD Ondansetron HCl (Ondansetron Hcl 4 Mg/2 Ml Vial) 4 mg IVPUSH Q8H PRN PRN Reason: Nausea and Vomiting Last Admin: 11/16/21 10:16 Dose: 4 mg Documented By: BEE Ondansetron HCl (Ondansetron Odt 4 Mg Tab.Rapdis) 4 mg TRANSLINGU Q6H PRN PRN Reason: Nausea Last Admin: 11/17/21 18:46 Dose: 4 mg Documented By: SARMAD Sertraline HCl (Sertraline Hcl 50 Mg Tablet) 50 mg PO DAILY [facility] Last Admin: 11/17/21 09:30 Dose: 50 mg Documented By: SARMAD Sodium Chloride (0.9 % Sodium Chloride Flush 3 Ml Syringe) 3 ml IVFLUSH QSHIFT [facility] Last Admin: 11/17/21 23:15 Dose: 3 ml Documented By: NANCY Thiamine HCl (Thiamine Hcl 100 Mg Tablet) 100 mg PO DAILY [facility] Last Admin: 11/17/21 09:31 Dose: 100 mg Documented By: SARMAD Vitamin D (Cholecalciferol (Vitamin D3) 25 Mcg Tablet) 25 mcg PO DAILY [facility] Last Admin: 11/17/21 09:31 Dose: 25 mcg Documented By: SARMAD Labs CBC & Chem 7: 11/13/21 07:32 11/17/21 10:36 Labs: Laboratory Results - last 24 hr 11/17/21 10:36 Anion Gap 15 Estim Creat Clear Calc 117.0 Estimated GFR > 60 Random Glucose 94 Calcium 8.2 L Magnesium 1.5 L Assessment and Plan (1) Diverticulitis: Status: Acute Plan 41-year-old female with pertinent history of alcohol use disorder, generalized anxiety disorder who presents to the emergency department with complaints of left-sided abdominal pain and diarrhea. -Acute diverticulitis Continued ongoing pain, but able to eat solid food Has been on Zosyn day 4/5 Pain management using pain scale ID following - Acute Diarrhea- improving- 2 episodes yesterday Likely related to abx use per GI C diff toxin and stool studies negative Continue immodium Yogurt for probiotics per GI Seen by GI- will need colonoscopy at some point, but hold for now given recent abscess ? -Alcohol use disorder Denies any withdrawal symptoms-last drink Labor Day Seen and evaluated by recovery team, offered referrals Would like naltrexone to be resumed but requires narcotic pain management currently Generalized anxiety disorder Continue sertraline DVT prophylaxis:? Lovenox [address] Maria Full code Disposition discharge home when IV Zosyn is completed as patient has not tolerated oral antibiotics Continue hospitalization for treatment of Acute diverticulitis, failed outpatient antibiotic therapy, need IV antibiotic as well as pain medication,also could not able to tolerate po antitbiotics . Quality Stroke Does the patient have a stroke diagnosis?: No VTE Prior VTE?: No VTE Risk Level:: Medical - low VTE Device Contraindication: Treatment Not Indicated VTE Drug Contraindication: N/A - Med Ordered
[2021-11-18] MEDS: Cholecalciferol (Vitamin D3) 25 MCG TABLET PO (08:40)
[2021-11-18] MEDS: Multivitamin TABLET 1 TAB PO (08:40)
[2021-11-18] MEDS: Sertraline HCL 50 MG TABLET PO (08:40)
[2021-11-18] MEDS: Thiamine HCL 100 MG TABLET PO (08:40)
[2021-11-18] MEDS: Folic Acid 1 MG TABLET PO (08:40)
[2021-11-18] MEDS: Loperamide HCl 2 MG CAPSULE PO (08:40)
[2021-11-18] MEDS: 0.9 % Sodium Chloride Flush 3 ML SYRINGE IVFLUSH ×3 (08:41→22:38)
[2021-11-18] MEDS: Morphine Sulfate 2 MG/ML CARTRIDGE IVPUSH ×4 (09:20→22:37)
[2021-11-18] MEDS: Ondansetron ODT 4 MG TAB.RAPDIS TRANSLINGU ×2 (09:20→18:28)
[2021-11-18] MEDS: Loperamide HCl 2 MG CAPSULE 4 MG PO ×2 (14:21→22:38)
--- NOTE | 2021-11-18 14:26 | MHC.CM.PN ---
PLAN IS ONE TO TWO MORE DAYS OF IV ZYVOX AND THEN DC.
[2021-11-18] MEDS: ondansetron HCL 4 MG/2 ML VIAL IVPUSH (14:31)
[2021-11-18 15:45] LABS: CDiff Gene PCR NEGATIVE (Negative)
[2021-11-19 03:10] VITALS: BP 90/59; PULSE 83; RESP 18; TEMP 36.7; O2SAT 99
[2021-11-19] MEDS: Piperacillin Sodium/Tazobactam 4.5 GM in 0.9 % Sodium Chloride 100 ML IV ×4 (05:40→22:32)
[2021-11-19] MEDS: Enoxaparin Sodium 40 MG/0.4 ML SYRINGE SUBCUT (05:40)
[2021-11-19] MEDS: Loperamide HCl 2 MG CAPSULE 4 MG PO ×3 (06:05→16:36)
[2021-11-19 06:58] VITALS: BP 92/50; PULSE 78; RESP 16; TEMP 37; O2SAT 99
[2021-11-19 08:22] LABS: Hematocrit 33.4 % (37.0-47.0); Hemoglobin 10.7 g/dl (12.0-16.0); Mean Corpuscular Hemoglobin 30.5 pg (27.0-33.0); Mean Corpuscular Volume 95.2 fL (80.0-98.0); Platelet Count 446 X10*3/uL (160-400); Red Blood Count 3.51 X10*6/uL (4.20-5.50); Red Cell Distribution Width 13.3 % (11.0-16.0)
[2021-11-19 08:44] LABS: Anion Gap 13 (12-20); Blood Urea Nitrogen 2 mg/dL (9-16); Calcium 8.4 mg/dL (8.4-10.2); Carbon Dioxide 24 mmol/L (22-29); Chloride 109 mmol/L (96-108); Creatinine Clr Calc Pharmacy 121.9; Estimated Glomerular Filt Rate > 60; Glucose Random 79 mg/dL (60-115); Potassium 3.6 mmol/L (3.3-5.1); Sodium 142 mmol/L (135-145)
[2021-11-19] MEDS: Multivitamin TABLET 1 TAB PO (10:01)
[2021-11-19] MEDS: Sertraline HCL 50 MG TABLET PO (10:01)
[2021-11-19] MEDS: Thiamine HCL 100 MG TABLET PO (10:01)
[2021-11-19] MEDS: Cholecalciferol (Vitamin D3) 25 MCG TABLET PO (10:01)
[2021-11-19] MEDS: Folic Acid 1 MG TABLET PO (10:01)
[2021-11-19] MEDS: 0.9 % Sodium Chloride Flush 3 ML SYRINGE IVFLUSH ×2 (10:01→19:35)
[2021-11-19 11:07] VITALS: BP 112/77; PULSE 92; RESP 16; TEMP 36.6; O2SAT 99
[2021-11-19] MEDS: Morphine Sulfate 2 MG/ML CARTRIDGE IVPUSH ×4 (11:16→22:40)
[2021-11-19] MEDS: ondansetron HCL 4 MG/2 ML VIAL IVPUSH ×2 (11:16→19:35)
--- NOTE | 2021-11-19 12:19 | P.PNIM_ITS ---
Subjective Subjective Date of Service: 11/19/21 Interval History: seen and examined this morning follow up for diverticulitis Still having multiple episodes of diarrhea, bilateral lower quadrant abdominal discomfort denies fever, chills Review of Systems Review of Systems: Yes all other systems are reviewed and are negative Constitutional Constitutional: Denies chills and Denies fever(s) Cardiovascular Cardiovascular: Denies chest pain, Denies palpitations and Denies dyspnea Respiratory Respiratory: Denies cough and Denies dyspnea Gastrointestinal Gastrointestinal: Reports abdominal pain, Reports diarrhea, Reports nausea and Reports vomiting Endocrine Endocrine: Denies palpitations Physical Exam Vital Signs: Vital Signs: Last Vital Signs Temp 98 F 11/19/21 11:07 Pulse 92 11/19/21 11:07 Resp 16 11/19/21 11:07 BP 112/77 11/19/21 11:07 Pulse Ox 99 11/19/21 11:07 O2 Del Method 11/19/21 11:07 BMI result Body Mass Index 20.3 Const: General: cooperative, no acute distress, alert and awake Nutritional Appearance: average body habitus Orientation/consciousness: patient oriented x3 Resp: Effort & Inspection: normal respiratory effort and able to speak in complete sentences Auscultation: clear to auscultation bilaterally Cardio: Rate: regular rate Heart sounds: S1 normal heart sound present and S2 normal heart sound present GI: Other: +BS; soft, non-distended, b/l lower quadrant tender; no rebound Neuro: General: patient oriented x3 Objective Data Active Medications Acetaminophen (Acetaminophen 325 Mg Tablet) 650 mg PO Q6H PRN PRN Reason: Pain, Mild (Pain Scale 1-3) Enoxaparin Sodium (Enoxaparin Sodium 40 Mg/0.4 Ml Syringe) 40 mg SUBCUT Q24H [facility] Last Admin: 11/19/21 05:40 Dose: 40 mg Documented By: NANCY Folic Acid (Folic Acid 1 Mg Tablet) 1 mg PO DAILY [facility] Last Admin: 11/19/21 10:01 Dose: 1 mg Documented By: GUNJAN Piperacillin Sod/Tazobactam (Sod 4.5 gm/ Sodium Chloride) 100 mls @ 200 mls/hr IV Q6H [facility] Last Infusion: 11/19/21 11:56 Dose: 0 mls/hr Documented By: GUNJAN Loperamide HCl (Loperamide Hcl 2 Mg Capsule) 2 mg PO Q4H PRN PRN Reason: Diarrhea Last Admin: 11/18/21 08:40 Dose: 2 mg Documented By: GUNJAN Loperamide HCl (Loperamide Hcl 2 Mg Capsule) 4 mg PO Q4H PRN PRN Reason: severe diarrhea Last Admin: 11/19/21 11:16 Dose: 4 mg Documented By: GUNJAN Melatonin (Melatonin 3 Mg Tablet) 6 mg PO BEDTIME PRN PRN Reason: Insomnia Morphine Sulfate (Morphine Sulfate 2 Mg/Ml Cartridge) 2 mg IVPUSH Q3H PRN; Protocol PRN Reason: Pain, Severe (Pain Scale 7-10) Last Admin: 11/19/21 11:16 Dose: 2 mg Documented By: GUNJAN Multivitamins/Vitamin C (Multivitamin Tablet) 1 tab PO DAILY [facility] Last Admin: 11/19/21 10:01 Dose: 1 tab Documented By: GUNJAN Ondansetron HCl (Ondansetron Hcl 4 Mg/2 Ml Vial) 4 mg IVPUSH Q8H PRN PRN Reason: Nausea and Vomiting Last Admin: 11/19/21 11:16 Dose: 4 mg Documented By: GUNJAN Ondansetron HCl (Ondansetron Odt 4 Mg Tab.Rapdis) 4 mg TRANSLINGU Q6H PRN PRN Reason: Nausea Last Admin: 11/18/21 18:28 Dose: 4 mg Documented By: GUNJAN Sertraline HCl (Sertraline Hcl 50 Mg Tablet) 50 mg PO DAILY [facility] Last Admin: 11/19/21 10:01 Dose: 50 mg Documented By: GUNJAN Sodium Chloride (0.9 % Sodium Chloride Flush 3 Ml Syringe) [facility] Last Admin: 11/19/21 10:01 Dose: 3 ml Documented By: GUNJAN Thiamine HCl (Thiamine Hcl 100 Mg Tablet) 100 mg PO DAILY [facility] Last Admin: 11/19/21 10:01 Dose: 100 mg Documented By: GUNJAN Vitamin D (Cholecalciferol (Vitamin D3) 25 Mcg Tablet) 25 mcg PO DAILY [facility] Last Admin: 11/19/21 10:01 Dose: 25 mcg Documented By: GUNJAN Labs CBC & Chem 7: 11/19/21 08:06 11/19/21 08:06 Labs: Laboratory Results - last 24 hr 11/18/21 11/19/21 11/19/21 13:05 08:06 08:06 MCV 95.2 MCH 30.5 MCHC 32.0 RDW 13.3 Plt Count 446 H MPV 10.0 Absolute Nucleated RBC 0.000 Nucleated RBC % (auto) 0.0 Anion Gap 13 Estim Creat Clear Calc 121.9 Estimated GFR > 60 Random Glucose 79 Calcium 8.4 C. difficile Tox B Gene NEGATIVE Microbiology Microbiology Results: Microbiology 11/13/21 07:28 Blood Culture - Final Blood - Venous No growth after 5 days. 11/13/21 07:33 Blood Culture - Final Blood - Venous No growth after 5 days. Assessment and Plan (1) Alcohol use disorder, moderate, dependence: Status: Acute (2) Diverticulitis: Status: Acute (3) Diarrhea: Status: Acute Plan 41-year-old female with pertinent history of alcohol use disorder, generalized anxiety disorder who presents to the emergency department with complaints of left-sided abdominal pain and diarrhea. -Acute diverticulitis CT scan showing mild diverticulitis of sigmoid colon no evidence of sepsis Continued ongoing pain, nausea - change to bland diet seen by ID -recommend Zosyn for 5-7 days Pain management - Acute Diarrhea- improving Likely related to abx use per GI C diff toxin and stool studies negative Continue immodium Yogurt for probiotics per GI Seen by GI - will need colonoscopy at some point, but hold for now given recent abscess hypomagnesemia Likely from GI losses Replace and follow ? -Alcohol use disorder Denies any withdrawal symptoms-last drink Labor Day Seen and evaluated by recovery team, offered referrals - Would like naltrexone on discharge Generalized anxiety disorder Continue sertraline DVT prophylaxis:? Lovenox [address] Maria Full code Disposition discharge home when IV Zosyn is completed as patient has not tolerated oral antibiotics Continue hospitalization for treatment of Acute diverticulitis, failed outpatient antibiotic therapy, need IV antibiotic as well as pain medication Quality Stroke Does the patient have a stroke diagnosis?: No VTE Prior VTE?: No VTE Risk Level:: Medical - low VTE Device Contraindication: Treatment Not Indicated VTE Drug Contraindication: N/A - Med Ordered
[2021-11-19 12:45] LABS: Magnesium 1.5 mg/dL (1.6-2.6)
[2021-11-19] MEDS: Magnesium Sulfate/H2O 2 GM/50 ML PIGGYBACK IV (13:15)
[2021-11-19 15:41] VITALS: BP 103/72; PULSE 95; RESP 17; TEMP 36.2; O2SAT 98
[2021-11-19] MEDS: Ondansetron ODT 4 MG TAB.RAPDIS TRANSLINGU (16:36)
[2021-11-19 19:42] VITALS: BP 122/86; PULSE 93; RESP 16; TEMP 36.2; O2SAT 98
[2021-11-20] VITALS (7 sets, daily range): BP systolic 104–120; BP diastolic 68–86; PULSE 65–96; RESP 16–18; TEMP 36.3–37.2; O2SAT 97–99
[2021-11-20] MEDS: Enoxaparin Sodium 40 MG/0.4 ML SYRINGE SUBCUT (04:32)
[2021-11-20] MEDS: Piperacillin Sodium/Tazobactam 4.5 GM in 0.9 % Sodium Chloride 100 ML IV ×2 (04:32→11:30)
[2021-11-20 06:15] LABS: Anion Gap 13 (12-20); Blood Urea Nitrogen 2 mg/dL (9-16); Calcium 8.1 mg/dL (8.4-10.2); Carbon Dioxide 24 mmol/L (22-29); Chloride 109 mmol/L (96-108); Creatinine Clr Calc Pharmacy 135.7; Estimated Glomerular Filt Rate > 60; Glucose Random 82 mg/dL (60-115); Magnesium 1.5 mg/dL (1.6-2.6); Potassium 3.2 mmol/L (3.3-5.1); Sodium 143 mmol/L (135-145)
[2021-11-20] MEDS: Potassium Chloride ER 20 MEQ TAB.ER.PRT 40 MEQ PO ×2 (08:16→17:20)
[2021-11-20] MEDS: Folic Acid 1 MG TABLET PO (08:16)
[2021-11-20] MEDS: Morphine Sulfate 2 MG/ML CARTRIDGE IVPUSH ×4 (08:16→22:31)
[2021-11-20] MEDS: Multivitamin TABLET 1 TAB PO (08:16)
[2021-11-20] MEDS: Thiamine HCL 100 MG TABLET PO (08:16)
[2021-11-20] MEDS: Magnesium Sulfate/H2O 2 GM/50 ML PIGGYBACK IV (08:16)
[2021-11-20] MEDS: Sertraline HCL 50 MG TABLET PO (08:16)
[2021-11-20] MEDS: Cholecalciferol (Vitamin D3) 25 MCG TABLET PO (08:16)
[2021-11-20] MEDS: ondansetron HCL 4 MG/2 ML VIAL IVPUSH (08:16)
[2021-11-20] MEDS: 0.9 % Sodium Chloride Flush 3 ML SYRINGE IVFLUSH ×3 (08:22→20:00)
[2021-11-20] MEDS: Loperamide HCl 2 MG CAPSULE 4 MG PO ×2 (09:47→18:17)
--- NOTE | 2021-11-20 16:14 | P.PNIM_ITS ---
Subjective Subjective Date of Service: 11/20/21 Interval History: seen and examined this morning follow up for diverticulitis still reporting LLQ abdominal pain and diarrhea overall starting to feel better, but having trouble keeping food down Review of Systems Review of Systems: Yes all other systems are reviewed and are negative Constitutional Constitutional: Denies chills and Denies fever(s) Cardiovascular Cardiovascular: Denies chest pain, Denies palpitations and Denies dyspnea Respiratory Respiratory: Denies cough and Denies dyspnea Gastrointestinal Gastrointestinal: Reports abdominal pain, Reports diarrhea, Reports nausea and Reports vomiting Endocrine Endocrine: Denies palpitations Physical Exam Vital Signs: Vital Signs: Last Vital Signs Temp 98.8 F 11/20/21 15:05 Pulse 75 11/20/21 15:05 Resp 16 11/20/21 15:05 BP 109/74 11/20/21 15:05 Pulse Ox 99 11/20/21 15:05 O2 Del Method 11/20/21 15:05 BMI result Body Mass Index 20.3 Const: General: cooperative, no acute distress, alert and awake Nutritional Appearance: average body habitus Orientation/consciousness: patient oriented x3 Resp: Effort & Inspection: normal respiratory effort and able to speak in complete sentences Auscultation: clear to auscultation bilaterally Cardio: Rate: regular rate Heart sounds: S1 normal heart sound present and S2 normal heart sound present GI: Other: +BS; soft, non-distended, b/l lower quadrant tender; no rebound Neuro: General: patient oriented x3 Objective Data Active Medications Acetaminophen (Acetaminophen 325 Mg Tablet) 650 mg PO Q6H PRN PRN Reason: Pain, Mild (Pain Scale 1-3) Enoxaparin Sodium (Enoxaparin Sodium 40 Mg/0.4 Ml Syringe) 40 mg SUBCUT Q24H [facility] Last Admin: 11/20/21 04:32 Dose: 40 mg Documented By: TEVIN Folic Acid (Folic Acid 1 Mg Tablet) 1 mg PO DAILY [facility] Last Admin: 11/20/21 08:16 Dose: 1 mg Documented By: BEE Piperacillin Sod/Tazobactam (Sod 4.5 gm/ Sodium Chloride) 100 mls @ 200 mls/hr IV Q6H [facility] Stop: 11/20/21 16:59 Last Infusion: 11/20/21 12:15 Dose: 0 mls/hr Documented By: BEE Magnesium Sulfate/Dextrose (Magnesium Sulfate/D5w) 1 gm in 100 mls @ 100 mls/hr IV ONCE ONE Stop: 11/20/21 17:12 Loperamide HCl (Loperamide Hcl 2 Mg Capsule) 2 mg PO Q4H PRN PRN Reason: Diarrhea Last Admin: 11/18/21 08:40 Dose: 2 mg Documented By: GUNJAN Loperamide HCl (Loperamide Hcl 2 Mg Capsule) 4 mg PO Q4H PRN PRN Reason: severe diarrhea Last Admin: 11/20/21 09:47 Dose: 4 mg Documented By: BEE Melatonin (Melatonin 3 Mg Tablet) 6 mg PO BEDTIME PRN PRN Reason: Insomnia Morphine Sulfate (Morphine Sulfate 2 Mg/Ml Cartridge) 2 mg IVPUSH Q4H PRN; Protocol PRN Reason: Pain, Severe (Pain Scale 7-10) Last Admin: 11/20/21 12:54 Dose: 2 mg Documented By: BEE Multivitamins/Vitamin C (Multivitamin Tablet) 1 tab PO DAILY [facility] Last Admin: 11/20/21 08:16 Dose: 1 tab Documented By: BEE Ondansetron HCl (Ondansetron Hcl 4 Mg/2 Ml Vial) 4 mg IVPUSH Q8H PRN PRN Reason: Nausea and Vomiting Last Admin: 11/20/21 08:16 Dose: 4 mg Documented By: BEE Ondansetron HCl (Ondansetron Odt 4 Mg Tab.Rapdis) 4 mg TRANSLINGU Q6H PRN PRN Reason: Nausea Last Admin: 11/19/21 16:36 Dose: 4 mg Documented By: GUNJAN Potassium Chloride (Potassium Chloride Er 20 Meq Tab.Er.Prt) 40 meq PO ONCE ONE Stop: 11/20/21 16:14 Sertraline HCl (Sertraline Hcl 50 Mg Tablet) 50 mg PO DAILY [facility] Last Admin: 11/20/21 08:16 Dose: 50 mg Documented By: BEE Sodium Chloride (0.9 % Sodium Chloride Flush 3 Ml Syringe) 3 ml IVFLUSH QSHIFT [facility] Last Admin: 11/20/21 08:22 Dose: 3 ml Documented By: BEE Thiamine HCl (Thiamine Hcl 100 Mg Tablet) 100 mg PO DAILY [facility] Last Admin: 11/20/21 08:16 Dose: 100 mg Documented By: BEE Vitamin D (Cholecalciferol (Vitamin D3) 25 Mcg Tablet) 25 mcg PO DAILY [facility] Last Admin: 11/20/21 08:16 Dose: 25 mcg Documented By: BEE Labs CBC & Chem 7: 11/19/21 08:06 11/20/21 05:27 Labs: Laboratory Results - last 24 hr 11/20/21 05:27 Anion Gap 13 Estim Creat Clear Calc 135.7 Estimated GFR > 60 Random Glucose 82 Calcium 8.1 L Magnesium 1.5 L Assessment and Plan (1) Diverticulitis: Status: Acute (2) Alcohol use disorder, moderate, dependence: Status: Acute Plan 41-year-old female with pertinent history of alcohol use disorder, generalized anxiety disorder who presents to the emergency department with complaints of left-sided abdominal pain and diarrhea. Acute diverticulitis CT scan showing mild diverticulitis of sigmoid colon no evidence of sepsis Continued ongoing pain, nausea - change to bland diet. will repeat CT abdomen seen by ID -recommend Zosyn for 5-7 days, last day of abx continue Pain management, wean IV narcotics Acute Diarrhea- improving Likely related to abx use per GI C diff toxin and stool studies negative Continue immodium Yogurt for probiotics per GI Seen by GI - will need colonoscopy at some point, but hold for now given recent abscess hypokalemia/hypomagnesemia Likely from GI losses Replace and follow ? Alcohol use disorder Denies any withdrawal symptoms-last drink Labor Day Seen and evaluated by recovery team, offered referrals - Would like naltrexone on discharge Generalized anxiety disorder Continue sertraline DVT prophylaxis:? Lovenox Attending Dr. Simon Full code Continue hospitalization for treatment of Acute diverticulitis, failed outpatient antibiotic therapy, need IV antibiotic as well as pain medication Quality Stroke Does the patient have a stroke diagnosis?: No VTE Prior VTE?: No VTE Risk Level:: Medical - low VTE Device Contraindication: Treatment Not Indicated VTE Drug Contraindication: N/A - Med Ordered
[2021-11-20] MEDS: Magnesium Sulfate/D5W 1 GM/100 ML PIGGYBACK IV (17:00)
--- NOTE | 2021-11-21 | ECG_ITS ---
Test Reason : chest pain Blood Pressure : / mmHG Vent. Rate : 068 BPM Atrial Rate : 068 BPM P-R Int : 098 ms QRS Dur : 074 ms QT Int : 420 ms P-R-T Axes : 030 091 052 degrees QTc Int : 446 ms Sinus rhythm with short ND Rightward axis Borderline ECG When compared with ECG of 29-JUL-2021 11:30, Vent. rate has decreased BY 36 BPM Referred By: Melvin Leong Electronically Signed By:THUY MANZO
[2021-11-21] MEDS: Enoxaparin Sodium 40 MG/0.4 ML SYRINGE SUBCUT (04:07)
[2021-11-21 04:26] VITALS: BP 102/71; PULSE 78; RESP 16; TEMP 37.1; O2SAT 97
[2021-11-21 08:00] VITALS: BP 108/77; PULSE 78; RESP 18; TEMP 36.9; O2SAT 98
[2021-11-21 08:19] LABS: Anion Gap 15 (12-20); Calcium 8.5 mg/dL (8.4-10.2); Carbon Dioxide 20 mmol/L (22-29); Chloride 111 mmol/L (96-108); Creatinine Clr Calc Pharmacy 132.7; Estimated Glomerular Filt Rate > 60; Glucose Random 80 mg/dL (60-115); Magnesium 1.5 mg/dL (1.6-2.6); Potassium 4.3 mmol/L (3.3-5.1); Sodium 142 mmol/L (135-145)
[2021-11-21 08:31] LABS: Blood Urea Nitrogen 2 mg/dL (9-16)
[2021-11-21] MEDS: Cholecalciferol (Vitamin D3) 25 MCG TABLET PO (09:17)
[2021-11-21] MEDS: Folic Acid 1 MG TABLET PO (09:17)
[2021-11-21] MEDS: Ondansetron ODT 4 MG TAB.RAPDIS TRANSLINGU ×2 (09:17→15:33)
[2021-11-21] MEDS: Sertraline HCL 50 MG TABLET PO (09:17)
[2021-11-21] MEDS: 0.9 % Sodium Chloride Flush 3 ML SYRINGE IVFLUSH ×3 (09:17→20:20)
[2021-11-21] MEDS: Morphine Sulfate 2 MG/ML CARTRIDGE IVPUSH ×3 (09:17→20:20)
[2021-11-21] MEDS: Multivitamin TABLET 1 TAB PO (09:17)
[2021-11-21] MEDS: Loperamide HCl 2 MG CAPSULE 4 MG PO ×2 (09:17→20:34)
[2021-11-21] MEDS: Thiamine HCL 100 MG TABLET PO (09:17)
[2021-11-21] MEDS: Magnesium Sulfate/H2O 2 GM/50 ML PIGGYBACK IV ×2 (10:13→15:33)
[2021-11-21 12:00] VITALS: BP 110/74; PULSE 93; RESP 18; TEMP 36.3; O2SAT 98
[2021-11-21 14:52] VITALS: BP 112/63; PULSE 66; RESP 18; TEMP 36.2; O2SAT 100
--- NOTE | 2021-11-21 15:06 | P.PNIM_ITS ---
Subjective Subjective Date of Service: 11/21/21 Interval History: seen and examined this morning Follow-up for diverticulitis Repeat CT scan yesterday showing possible ileus still with some left lower quadrant abdominal pain, nausea, diarrhea Review of Systems Review of Systems: Yes all other systems are reviewed and are negative Constitutional Constitutional: Denies chills and Denies fever(s) ENT Ears, Nose, Mouth, and Throat: Denies dizziness Cardiovascular Cardiovascular: Denies chest pain, Denies palpitations and Denies dyspnea Respiratory Respiratory: Denies cough and Denies dyspnea Gastrointestinal Gastrointestinal: Reports abdominal pain, Reports diarrhea, Reports nausea and Denies vomiting Neurologic Neurologic: Denies dizziness Endocrine Endocrine: Denies palpitations Physical Exam Vital Signs: Vital Signs: Last Vital Signs Temp 97.1 F 11/21/21 14:52 Pulse 66 11/21/21 14:52 Resp 18 11/21/21 14:52 BP 112/63 11/21/21 14:52 Pulse Ox 100 11/21/21 14:52 O2 Del Method 11/21/21 14:52 BMI result Body Mass Index 20.3 Const: General: cooperative, no acute distress, alert and awake Nutritional Appearance: average body habitus Orientation/consciousness: patient oriented x3 Resp: Effort & Inspection: normal respiratory effort and able to speak in complete sentences Auscultation: clear to auscultation bilaterally Cardio: Rate: regular rate Heart sounds: S1 normal heart sound present and S2 normal heart sound present GI: Other: +BS; soft, non-distended, b/l lower quadrant tender; no rebound Neuro: General: patient oriented x3 Objective Data Active Medications Acetaminophen (Acetaminophen 325 Mg Tablet) 650 mg PO Q6H PRN PRN Reason: Pain, Mild (Pain Scale 1-3) Enoxaparin Sodium (Enoxaparin Sodium 40 Mg/0.4 Ml Syringe) 40 mg SUBCUT Q24H [facility] Last Admin: 11/21/21 04:07 Dose: 40 mg Documented By: JAD Folic Acid (Folic Acid 1 Mg Tablet) 1 mg PO DAILY [facility] Last Admin: 11/21/21 09:17 Dose: 1 mg Documented By: BEE Loperamide HCl (Loperamide Hcl 2 Mg Capsule) 2 mg PO Q4H PRN PRN Reason: Diarrhea Last Admin: 11/18/21 08:40 Dose: 2 mg Documented By: GUNJAN Loperamide HCl (Loperamide Hcl 2 Mg Capsule) 4 mg PO Q4H PRN PRN Reason: severe diarrhea Last Admin: 11/21/21 09:17 Dose: 4 mg Documented By: BEE Melatonin (Melatonin 3 Mg Tablet) 6 mg PO BEDTIME PRN PRN Reason: Insomnia Morphine Sulfate (Morphine Sulfate 2 Mg/Ml Cartridge) 2 mg IVPUSH Q4H PRN; Protocol PRN Reason: Pain, Severe (Pain Scale 7-10) Last Admin: 11/21/21 09:17 Dose: 2 mg Documented By: BEE Multivitamins/Vitamin C (Multivitamin Tablet) 1 tab PO DAILY [facility] Last Admin: 11/21/21 09:17 Dose: 1 tab Documented By: BEE Ondansetron HCl (Ondansetron Hcl 4 Mg/2 Ml Vial) 4 mg IVPUSH Q8H PRN PRN Reason: Nausea and Vomiting Last Admin: 11/20/21 08:16 Dose: 4 mg Documented By: BEE Ondansetron HCl (Ondansetron Odt 4 Mg Tab.Rapdis) 4 mg TRANSLINGU Q6H PRN PRN Reason: Nausea Last Admin: 11/21/21 09:17 Dose: 4 mg Documented By: BEE Sertraline HCl (Sertraline Hcl 50 Mg Tablet) 50 mg PO DAILY [facility] Last Admin: 11/21/21 09:17 Dose: 50 mg Documented By: BEE Sodium Chloride (0.9 % Sodium Chloride Flush 3 Ml Syringe) 3 ml IVFLUSH QSHIFT [facility] Last Admin: 11/21/21 09:17 Dose: 3 ml Documented By: BEE Thiamine HCl (Thiamine Hcl 100 Mg Tablet) 100 mg PO DAILY [facility] Last Admin: 11/21/21 09:17 Dose: 100 mg Documented By: BEE Vitamin D (Cholecalciferol (Vitamin D3) 25 Mcg Tablet) 25 mcg PO DAILY [facility] Last Admin: 11/21/21 09:17 Dose: 25 mcg Documented By: BEE Labs CBC & Chem 7: 11/19/21 08:06 11/21/21 07:51 Labs: Laboratory Results - last 24 hr 11/21/21 07:51 Anion Gap 15 Estim Creat Clear Calc 132.7 Estimated GFR > 60 Random Glucose 80 Calcium 8.5 Magnesium 1.5 L Assessment and Plan (1) Diverticulitis: Status: Acute (2) Diarrhea: Status: Acute Plan 41-year-old female with pertinent history of alcohol use disorder, generalized anxiety disorder who presents to the emergency department with complaints of left-sided abdominal pain and diarrhea. Acute diverticulitis CT scan showing mild diverticulitis of sigmoid colon no evidence of sepsis Continued ongoing pain, nausea -repeat CT scan showing probable ileus seen by ID -completed course of zosyn continue Pain management, wean IV narcotics ileus downgrade to full liquid diet supportive care Acute Diarrhea- improving Likely related to abx use per GI C diff toxin and stool studies negative Continue immodium Yogurt for probiotics per GI Seen by GI - will need colonoscopy at some point, but hold for now given recent abscess hypokalemia/hypomagnesemia Likely from GI losses potassium improved, magnesium persistently low Replace and follow ? Alcohol use disorder Denies any withdrawal symptoms-last drink Labor Day Seen and evaluated by recovery team, offered referrals - Would like naltrexone on discharge Generalized anxiety disorder Continue sertraline DVT prophylaxis:? [employer] Attending Dr. Simon Full code Continue hospitalization for treatment of Acute diverticulitis, failed outpatient antibiotic therapy, need IV antibiotic as well as pain medication Quality Stroke Does the patient have a stroke diagnosis?: No VTE Prior VTE?: No VTE Risk Level:: Medical - low VTE Device Contraindication: Treatment Not Indicated VTE Drug Contraindication: N/A - Med Ordered
[2021-11-21 19:56] VITALS: BP 96/60; PULSE 98; RESP 16; TEMP 36.7; O2SAT 97
[2021-11-21] MEDS: Famotidine/PF 20 MG/2 ML VIAL IVPUSH (20:33)
[2021-11-21 21:08] LABS: Troponin-I High Sensitivity < 3.5 ng/L (<3.5-17.0)
[2021-11-21 23:49] VITALS: BP 125/80; PULSE 72; RESP 17; TEMP 36.2; O2SAT 98
[2021-11-22] VITALS (7 sets, daily range): BP systolic 102–123; BP diastolic 64–88; PULSE 58–98; RESP 16–18; TEMP 36–36.8; O2SAT 97–99
[2021-11-22 00:20] LABS: Troponin-I High Sensitivity < 3.5 ng/L (<3.5-17.0)
[2021-11-22] MEDS: Morphine Sulfate 2 MG/ML CARTRIDGE IVPUSH ×5 (01:04→18:08)
[2021-11-22] MEDS: Enoxaparin Sodium 40 MG/0.4 ML SYRINGE SUBCUT (03:56)
[2021-11-22] MEDS: Acetaminophen 325 MG TABLET 650 MG PO (03:56)
[2021-11-22] MEDS: Loperamide HCl 2 MG CAPSULE 4 MG PO ×5 (05:18→21:39)
[2021-11-22 07:35] LABS: Anion Gap 15 (12-20); Blood Urea Nitrogen 2 mg/dL (9-16); Calcium 8.4 mg/dL (8.4-10.2); Carbon Dioxide 21 mmol/L (22-29); Chloride 109 mmol/L (96-108); Creatinine Clr Calc Pharmacy 142.2; Estimated Glomerular Filt Rate > 60; Glucose Random 81 mg/dL (60-115); Magnesium 1.5 mg/dL (1.6-2.6); Potassium 3.9 mmol/L (3.3-5.1); Sodium 141 mmol/L (135-145)
[2021-11-22] MEDS: Magnesium Sulfate/H2O 2 GM/50 ML PIGGYBACK IV (09:26)
[2021-11-22] MEDS: 0.9 % Sodium Chloride Flush 3 ML SYRINGE IVFLUSH ×3 (09:26→21:45)
[2021-11-22] MEDS: Famotidine/PF 20 MG/2 ML VIAL IVPUSH ×2 (09:27→21:39)
[2021-11-22] MEDS: Multivitamin TABLET 1 TAB PO (09:27)
[2021-11-22] MEDS: Cholecalciferol (Vitamin D3) 25 MCG TABLET PO (09:28)
[2021-11-22] MEDS: Folic Acid 1 MG TABLET PO (09:28)
[2021-11-22] MEDS: Thiamine HCL 100 MG TABLET PO (09:28)
[2021-11-22] MEDS: Sertraline HCL 50 MG TABLET PO (09:28)
--- NOTE | 2021-11-22 10:05 | HO.PM.IMPN ---
Subjective Subjective Date of Service: 11/22/21 Interval History: Follow-up for diverticulitis, diarrhea Repeat CT scan yesterday showing possible ileus 2 days ago still with multiple episodes of watery stool Review of Systems Review of Systems: Yes all other systems are reviewed and are negative Constitutional Constitutional: Denies chills and Denies fever(s) ENT Ears, Nose, Mouth, and Throat: Denies dizziness Cardiovascular Cardiovascular: Denies chest pain, Denies palpitations and Denies dyspnea Respiratory Respiratory: Denies cough and Denies dyspnea Gastrointestinal Gastrointestinal: Reports abdominal pain, Reports diarrhea, Reports nausea and Denies vomiting Neurologic Neurologic: Denies dizziness Endocrine Endocrine: Denies palpitations Physical Exam Vital Signs: Vital Signs: Last Vital Signs Temp 97 F 11/22/21 07:01 Pulse 58 11/22/21 07:01 Resp 16 11/22/21 07:01 BP 122/64 11/22/21 07:01 Pulse Ox 99 11/22/21 07:01 O2 Del Method 11/22/21 07:01 BMI result Body Mass Index 20.3 Appearing in no acute distress, thin and pale lung sounds are clear to auscultation heart regular rate rhythm, clear S1, S2 positive bowel sounds, abdomen is soft, nontender neuro patient is alert x3, no focal deficits Objective Data Active Medications Acetaminophen (Acetaminophen 325 Mg Tablet) 650 mg PO Q6H PRN PRN Reason: Pain, Mild (Pain Scale 1-3) Last Admin: 11/22/21 03:56 Dose: 650 mg Documented By: CRISTELA Enoxaparin Sodium (Enoxaparin Sodium 40 Mg/0.4 Ml Syringe) 40 mg SUBCUT Q24H [facility] Last Admin: 11/22/21 03:56 Dose: 40 mg Documented By: CRISTELA Famotidine (Famotidine/Pf 20 Mg/2 Ml Vial) 20 mg IVPUSH BID [facility] Last Admin: 11/22/21 09:27 Dose: 20 mg Documented By: SVETA Folic Acid (Folic Acid 1 Mg Tablet) 1 mg PO DAILY [facility] Last Admin: 11/22/21 09:28 Dose: 1 mg Documented By: SVETA Loperamide HCl (Loperamide Hcl 2 Mg Capsule) 2 mg PO Q4H PRN PRN Reason: Diarrhea Last Admin: 11/18/21 08:40 Dose: 2 mg Documented By: GUNJAN Loperamide HCl (Loperamide Hcl 2 Mg Capsule) 4 mg PO Q4H PRN PRN Reason: severe diarrhea Last Admin: 11/22/21 09:27 Dose: 4 mg Documented By: SVETA Melatonin (Melatonin 3 Mg Tablet) 6 mg PO BEDTIME PRN PRN Reason: Insomnia Morphine Sulfate (Morphine Sulfate 2 Mg/Ml Cartridge) 2 mg IVPUSH Q4H PRN; Protocol PRN Reason: Pain, Severe (Pain Scale 7-10) Last Admin: 11/22/21 09:27 Dose: 2 mg Documented By: SVETA Multivitamins/Vitamin C (Multivitamin Tablet) 1 tab PO DAILY [facility] Last Admin: 11/22/21 09:27 Dose: 1 tab Documented By: SVETA Nitroglycerin (Nitroglycerin 0.4 Mg Tab.Subl) 0.4 mg SUBLINGUAL Q5MX3 PRN PRN Reason: Pain, Mild (Pain Scale 1-3) Ondansetron HCl (Ondansetron Hcl 4 Mg/2 Ml Vial) 4 mg IVPUSH Q8H PRN PRN Reason: Nausea and Vomiting Last Admin: 11/20/21 08:16 Dose: 4 mg Documented By: BEE Ondansetron HCl (Ondansetron Odt 4 Mg Tab.Rapdis) 4 mg TRANSLINGU Q6H PRN PRN Reason: Nausea Last Admin: 11/21/21 15:33 Dose: 4 mg Documented By: BEE Sertraline HCl (Sertraline Hcl 50 Mg Tablet) 50 mg PO DAILY [facility] Last Admin: 11/22/21 09:28 Dose: 50 mg Documented By: SVETA Sodium Chloride (0.9 % Sodium Chloride Flush 3 Ml Syringe) 3 ml IVFLUSH [facility] Last Admin: 11/22/21 09:26 Dose: 3 ml Documented By: SVETA Thiamine HCl (Thiamine Hcl 100 Mg Tablet) 100 mg PO DAILY [facility] Last Admin: 11/22/21 09:28 Dose: 100 mg Documented By: SVETA Vitamin D (Cholecalciferol (Vitamin D3) 25 Mcg Tablet) 25 mcg PO DAILY [facility] Last Admin: 11/22/21 09:28 Dose: 25 mcg Documented By: SVETA Labs CBC & Chem 7: 11/19/21 08:06 11/22/21 05:15 Labs: Laboratory Results - last 24 hr 11/21/21 11/21/21 11/22/21 20:37 23:53 05:15 Anion Gap 15 Estim Creat Clear Calc 142.2 Estimated GFR > 60 Random Glucose 81 Calcium 8.4 Magnesium 1.5 L Troponin I High Sens < 3.5 < 3.5 Assessment and Plan (1) Diverticulitis: Status: Acute (2) Diarrhea: Status: Acute Plan 41-year-old female with pertinent history of alcohol use disorder, generalized anxiety disorder who presents to the emergency department with complaints of left-sided abdominal pain and diarrhea. Acute diverticulitis CT scan showing mild diverticulitis of sigmoid colon no evidence of sepsis Continued ongoing pain, nausea -repeat CT scan showing probable ileus seen by ID -completed course of zosyn continue Pain management, wean IV narcotics Ileus downgrade to full liquid diet supportive care Acute Diarrhea. six episodes over night Likely related to abx use per GI C diff toxin and stool studies negative schedule imodium Yogurt for probiotics per GI will need colonoscopy at some point, but hold for now given recent abscess Hypokalemia/hypomagnesemia from GI losses potassium improved, magnesium persistently low Replace and follow ? Alcohol use disorder Denies any withdrawal symptoms-last drink Labor Day Seen and evaluated by recovery team, offered referrals Would like naltrexone on discharge Generalized anxiety disorder Continue sertraline DVT prophylaxis Lovenox Attending Dr. Maria Full code Continue hospitalization for treatment of Acute diverticulitis, failed outpatient antibiotic therapy, need IV antibiotic as well as pain medication Quality Stroke Does the patient have a stroke diagnosis?: No VTE Prior VTE?: No VTE Risk Level:: Medical - low VTE Device Contraindication: Treatment Not Indicated VTE Drug Contraindication: N/A - Med Ordered
--- NOTE | 2021-11-22 11:51 | MHC.RECOVRN ---
T/W met w/ pt, pt alert, oriented, sitting up in bed, watching t.v. Pt reports no cravings. Pt states has not received a call yet from [facility] related to [facility]. Pt reports had a visit w/ family yesterday. T/W and pt discussed plan, t/w will f/u w/ pt upon discharge to ensure referral to [facility]. Pt agreeable.
--- NOTE | 2021-11-22 12:08 | MHC.CM.PN ---
Per ROUNDS discussion, Patient is having multiple episodes of diarrhea and is not yet medically cleared for dc. Home is the goal and CM will continue to follow.
[2021-11-22] MEDS: ondansetron HCL 4 MG/2 ML VIAL IVPUSH (13:59)
[2021-11-22] MEDS: HYDROmorphone HCl 0.5 MG/0.5 ML SYRINGE IVPUSH (21:39)
[2021-11-23 03:58] VITALS: BP 96/58; PULSE 69; RESP 17; TEMP 36; O2SAT 97
[2021-11-23] MEDS: Morphine Sulfate 2 MG/ML CARTRIDGE IVPUSH ×5 (04:06→20:09)
[2021-11-23] MEDS: Loperamide HCl 2 MG CAPSULE 4 MG PO ×6 (04:07→23:54)
[2021-11-23] MEDS: Enoxaparin Sodium 40 MG/0.4 ML SYRINGE SUBCUT (04:07)
[2021-11-23 06:52] VITALS: BP 103/73; PULSE 90; RESP 16; TEMP 36.4; O2SAT 97
[2021-11-23 07:40] LABS: Anion Gap 16 (12-20); Blood Urea Nitrogen < 2 mg/dL (9-16); Calcium 8.3 mg/dL (8.4-10.2); Carbon Dioxide 22 mmol/L (22-29); Chloride 108 mmol/L (96-108); Creatinine Clr Calc Pharmacy 142.2; Estimated Glomerular Filt Rate > 60; Glucose Random 73 mg/dL (60-115); Potassium 3.6 mmol/L (3.3-5.1); Sodium 142 mmol/L (135-145)
[2021-11-23 07:56] LABS: Magnesium 1.3 mg/dL (1.6-2.6)
[2021-11-23] MEDS: Magnesium Sulfate/H2O 2 GM/50 ML PIGGYBACK IV (08:47)
[2021-11-23] MEDS: 0.9 % Sodium Chloride Flush 3 ML SYRINGE IVFLUSH ×2 (08:47→15:46)
[2021-11-23] MEDS: Famotidine/PF 20 MG/2 ML VIAL IVPUSH ×2 (08:47→20:08)
[2021-11-23] MEDS: Multivitamin TABLET 1 TAB PO (08:48)
[2021-11-23] MEDS: Thiamine HCL 100 MG TABLET PO (08:48)
[2021-11-23] MEDS: Folic Acid 1 MG TABLET PO (08:48)
[2021-11-23] MEDS: Sertraline HCL 50 MG TABLET PO (08:48)
[2021-11-23] MEDS: Cholecalciferol (Vitamin D3) 25 MCG TABLET PO (08:48)
[2021-11-23] MEDS: Ondansetron ODT 4 MG TAB.RAPDIS TRANSLINGU (08:49)
--- NOTE | 2021-11-23 09:17 | HO.PM.IMPN ---
Subjective Subjective Date of Service: 11/23/21 Interval History: Follow-up for diverticulitis, diarrhea still with multiple episodes of watery stool poor appetite. LLQ abd pain Review of Systems Review of Systems: Yes all other systems are reviewed and are negative Constitutional Constitutional: Denies chills and Denies fever(s) ENT Ears, Nose, Mouth, and Throat: Denies dizziness Cardiovascular Cardiovascular: Denies chest pain, Denies palpitations and Denies dyspnea Respiratory Respiratory: Denies cough and Denies dyspnea Gastrointestinal Gastrointestinal: Reports abdominal pain, Reports diarrhea, Reports nausea and Denies vomiting Neurologic Neurologic: Denies dizziness Endocrine Endocrine: Denies palpitations Physical Exam Vital Signs: Vital Signs: Last Vital Signs Temp 97.5 F 11/23/21 06:52 Pulse 90 11/23/21 06:52 Resp 16 11/23/21 06:52 BP 103/73 11/23/21 06:52 Pulse Ox 97 11/23/21 06:52 O2 Del Method 11/23/21 06:52 BMI result Body Mass Index 20.3 Appearing in no acute distress lung sounds are clear to auscultation heart regular rate rhythm, clear S1, S2 positive bowel sounds, abdomen is soft, nontender, mild bloating neuro patient is alert x3, no focal deficits Objective Data Active Medications Acetaminophen (Acetaminophen 325 Mg Tablet) 650 mg PO Q6H PRN PRN Reason: Pain, Mild (Pain Scale 1-3) Last Admin: 11/22/21 03:56 Dose: 650 mg Documented By: CRISTELA Enoxaparin Sodium (Enoxaparin Sodium 40 Mg/0.4 Ml Syringe) 40 mg SUBCUT Q24H [facility] Last Admin: 11/23/21 04:07 Dose: 40 mg Documented By: NANCY Famotidine (Famotidine/Pf 20 Mg/2 Ml Vial) 20 mg IVPUSH BID [facility] Last Admin: 11/23/21 08:47 Dose: 20 mg Documented By: SVETA Folic Acid (Folic Acid 1 Mg Tablet) 1 mg PO DAILY [facility] Last Admin: 11/23/21 08:48 Dose: 1 mg Documented By: SVETA Magnesium Sulfate (Magnesium Sulfate/H2o) 2 gm in 50 mls @ 25 mls/hr IV ONCE ONE Stop: 11/23/21 10:14 Last Admin: 11/23/21 08:47 Dose: 25 mls/hr Documented By: SVETA Loperamide HCl (Loperamide Hcl 2 Mg Capsule) 2 mg PO Q4H PRN PRN Reason: Diarrhea Last Admin: 11/18/21 08:40 Dose: 2 mg Documented By: GUNJAN Loperamide HCl (Loperamide Hcl 2 Mg Capsule) 4 mg PO Q4H [facility] Last Admin: 11/23/21 08:47 Dose: 4 mg Documented By: SVETA Melatonin (Melatonin 3 Mg Tablet) 6 mg PO BEDTIME PRN PRN Reason: Insomnia Morphine Sulfate (Morphine Sulfate 2 Mg/Ml Cartridge) 2 mg IVPUSH Q4H PRN; Protocol PRN Reason: Pain, Severe (Pain Scale 7-10) Last Admin: 11/23/21 08:47 Dose: 2 mg Documented By: SVETA Multivitamins/Vitamin C (Multivitamin Tablet) 1 tab PO DAILY [facility] Last Admin: 11/23/21 08:48 Dose: 1 tab Documented By: SVETA Nitroglycerin (Nitroglycerin 0.4 Mg Tab.Subl) 0.4 mg SUBLINGUAL Q5MX3 PRN PRN Reason: Pain, Mild (Pain Scale 1-3) Ondansetron HCl (Ondansetron Hcl 4 Mg/2 Ml Vial) 4 mg IVPUSH Q8H PRN PRN Reason: Nausea and Vomiting Last Admin: 11/22/21 13:59 Dose: 4 mg Documented By: SVETA Ondansetron HCl (Ondansetron Odt 4 Mg Tab.Rapdis) 4 mg TRANSLINGU Q6H PRN PRN Reason: Nausea Last Admin: 11/23/21 08:49 Dose: 4 mg Documented By: SVETA Sertraline HCl (Sertraline Hcl 50 Mg Tablet) 50 mg PO DAILY [facility] Last Admin: 11/23/21 08:48 Dose: 50 mg Documented By: SVETA Sodium Chloride (0.9 % Sodium Chloride Flush 3 Ml Syringe) 3 ml IVFLUSH QSHIFT [facility] Last Admin: 11/23/21 08:47 Dose: 3 ml Documented By: SVETA Thiamine HCl (Thiamine Hcl 100 Mg Tablet) 100 mg PO DAILY [facility] Last Admin: 11/23/21 08:48 Dose: 100 mg Documented By: SVETA Vitamin D (Cholecalciferol (Vitamin D3) 25 Mcg Tablet) 25 mcg PO DAILY [facility] Last Admin: 11/23/21 08:48 Dose: 25 mcg Documented By: SVETA Labs CBC & Chem 7: 11/19/21 08:06 11/23/21 05:55 Labs: Laboratory Results - last 24 hr 11/23/21 11/23/21 05:55 05:55 Anion Gap 16 Estim Creat Clear Calc 142.2 Estimated GFR > 60 Random Glucose 73 Calcium 8.3 L Magnesium 1.3 L* Assessment and Plan (1) Diverticulitis: Status: Acute (2) Diarrhea: Status: Acute Plan 41-year-old female with pertinent history of alcohol use disorder, generalized anxiety disorder who presents to the emergency department with complaints of left-sided abdominal pain and diarrhea. Acute diverticulitis CT scan showing mild diverticulitis of sigmoid colon no evidence of sepsis Continued ongoing pain, nausea -repeat CT scan showing probable ileus seen by ID -completed course of zosyn continue Pain management, wean IV narcotics General surgery consult Ileus still with pain to LLQ downgrade to full liquid diet supportive care Acute Diarrhea. multiple episodes daily Likely related to abx use per GI C diff toxin and stool studies negative scheduled imodium Yogurt for probiotics per GI will need colonoscopy at some point, but hold for now given recent abscess Hypokalemia/hypomagnesemia from GI losses potassium improved, magnesium persistently low Replace and follow ? Alcohol use disorder Denies any withdrawal symptoms-last drink Labor Day Seen and evaluated by recovery team, offered referrals Would like naltrexone on discharge Generalized anxiety disorder Continue sertraline DVT prophylaxis Lovenox Attending Dr. Maria Full code Continue hospitalization for treatment of Acute diverticulitis, failed outpatient antibiotic therapy, need IV antibiotic as well as pain medication Quality Stroke Does the patient have a stroke diagnosis?: No VTE Prior VTE?: No VTE Risk Level:: Medical - low VTE Device Contraindication: Treatment Not Indicated VTE Drug Contraindication: N/A - Med Ordered
[2021-11-23 10:51] VITALS: BP 98/76; PULSE 82; RESP 16; TEMP 35.9; O2SAT 98
--- NOTE | 2021-11-23 11:16 | P.CONGS_ITS ---
History of Present Illness Consult details Consult date: 11/23/21 Reason for consult: abdominal pain Narrative: The patient is a 41-year-old woman seen at the request of the hospitalist service because of left lower quadrant pain and diarrhea. Patient states she w as admitted at [facility] before and transferred to [facility] for percutaneous diverticulitis requiring percutaneous drainage of a [id number] abscess through her buttock. The patient also had her IUD removed at the time and per athletic coordinator at [place], this was felt to be diverticular abscess rather than a tubo-ovarian abscess. However, I do not have records. The patient has a history of heavy alcohol use and was weaned/tapered off of alcohol. She denies any other substance abuse such as opiates which would cause severe constipation. The patient reports a family history of her mother and a sister both having Celiac, however to the best of her knowledge, there is no inflammatory bowel disease, Crohn's disease, ulcerative colitis or GI malignancy. Patient denies any lactose intolerance. The patient fairly regularly reports postprandial diarrhea and sometimes diarrhea between meals. She is currently on a full liquid diet and still having pain in both sides of her abdomen as well as non-bloody diarrhea. ID consultation was obtained several days ago due to nausea and vomiting. Review of Systems Review of Systems: Yes all other systems are reviewed and are negative Constitutional: Constitutional: Reports as per [facility] Past Medical History Medical History Alcohol abuse Anxiety Diverticulitis Pelvic abscess in female Functional capacity: independent ambulation Family History Family History Father Medical history unknown Mother Medical history unknown Paternal Grandfather Cancer Sister Epilepsy Daughter In good health Son In good health Family history: reviewed and not pertinent Surgical History Surgical History No pertinent past surgical history Social History Social History Household Members: None Housing: Apartment Do you presently have visiting nurse or other home services: No Alcohol intake: current Alcohol intake frequency: 3 or more drinks per day Alcohol type: hard liquor Patient Tobacco Use Status: Former Tobacco user Tobacco use type: Cigarette e-Cigarette/Vaping Use: Former Use Second Hand Smoke Exposure: No Advance Directives Date on File: 01/25/21 service: No Current occupational status: unemployed Cognitive needs: No Hearing needs: No Vision needs: No Meds Allergies Allergy/AdvReac Type Severity Reaction Status Date / Time amoxicillin [From Augmentin] Allergy Intermediate Abdominal Verified 11/10/21 14:24 Pain clavulanic acid Allergy Intermediate Abdominal Verified 11/10/21 14:24 [From Augmentin] Pain Sulfa (Sulfonamide Allergy Mild RASH Verified 11/10/21 14:24 Antibiotics) [SULFA (SULFONAMIDE ANTIBIOTICS)] magnesium AdvReac Diarrhea Verified 11/10/21 14:24 Active Medications: Current Medications Acetaminophen (Acetaminophen 325 Mg Tablet) 650 mg PO Q6H PRN PRN Reason: Pain, Mild (Pain Scale 1-3) Last Admin: 11/22/21 03:56 Dose: 650 mg Enoxaparin Sodium (Enoxaparin Sodium 40 Mg/0.4 Ml Syringe) 40 mg SUBCUT Q24H [facility]PLACED BY [facility] Last Admin: 11/23/21 04:07 Dose: 40 mg Famotidine (Famotidine/Pf 20 Mg/2 Ml Vial) 20 mg IVPUSH BID [facility] Last Admin: 11/23/21 08:47 Dose: 20 mg Folic Acid (Folic Acid 1 Mg Tablet) 1 mg PO DAILY [facility] Last Admin: 11/23/21 08:48 Dose: 1 mg Loperamide HCl (Loperamide Hcl 2 Mg Capsule) 2 mg PO Q4H PRN PRN Reason: Diarrhea Last Admin: 11/18/21 08:40 Dose: 2 mg Loperamide HCl (Loperamide Hcl 2 Mg Capsule) 4 mg PO Q4H [facility] Last Admin: 11/23/21 11:05 Dose: 4 mg Melatonin (Melatonin 3 Mg Tablet) 6 mg PO BEDTIME PRN PRN Reason: Insomnia Morphine Sulfate (Morphine Sulfate 2 Mg/Ml Cartridge) 2 mg IVPUSH Q4H PRN; Protocol PRN Reason: Pain, Severe (Pain Scale 7-10) Last Admin: 11/23/21 08:47 Dose: 2 mg Multivitamins/Vitamin C (Multivitamin Tablet) 1 tab PO DAILY [facility] Last Admin: 11/23/21 08:48 Dose: 1 tab Nitroglycerin (Nitroglycerin 0.4 Mg Tab.Subl) 0.4 mg SUBLINGUAL Q5MX3 PRN PRN Reason: Pain, Mild (Pain Scale 1-3) Ondansetron HCl (Ondansetron Hcl 4 Mg/2 Ml Vial) 4 mg IVPUSH Q8H PRN PRN Reason: Nausea and Vomiting Last Admin: 11/22/21 13:59 Dose: 4 mg Ondansetron HCl (Ondansetron Odt 4 Mg Tab.Rapdis) 4 mg TRANSLINGU Q6H PRN PRN Reason: Nausea Last Admin: 11/23/21 08:49 Dose: 4 mg Sertraline HCl (Sertraline Hcl 50 Mg Tablet) 50 mg PO DAILY [facility] Last Admin: 11/23/21 08:48 Dose: 50 mg Sodium Chloride (0.9 % Sodium Chloride Flush 3 Ml Syringe) 3 ml IVFLUSH QSHIFT REPLACED BY [facility] Last Admin: 11/23/21 08:47 Dose: 3 ml Thiamine HCl (Thiamine Hcl 100 Mg Tablet) 100 mg PO DAILY [facility] Last Admin: 11/23/21 08:48 Dose: 100 mg Vitamin D (Cholecalciferol (Vitamin D3) 25 Mcg Tablet) 25 mcg PO DAILY [facility] Last Admin: 11/23/21 08:48 Dose: 25 mcg Home Medications Medication Instructions Recorded Confirmed Last Taken Type naltrexone 50 mg tablet 50 mg PO DAILY 04/20/21 11/13/21 1 Month Ago History ~08/12/21 melatonin 5 mg tablet 5 mg PO BEDTIME PRN Sleep 07/29/21 11/13/21 1 Month Ago History ~08/12/21 cholecalciferol (vitamin D3) 25 25 mcg PO DAILY 09/11/21 11/13/21 1 Month Ago History mcg (1,000 unit) tablet ~08/12/21 hyoscyamine sulfate 0.125 mg 0.125 mg PO Q4H PRN cramps 11/10/21 11/13/21 11/12/21 History sublingual tablet ondansetron 4 mg disintegrating 4 mg PO Q8H PRN Nausea 11/10/21 11/13/21 Unknown History tablet Physical Exam Vital Signs: Vital Signs: Last Vital Signs Temp 96.7 F L 11/23/21 10:51 Pulse 82 11/23/21 10:51 Resp 16 11/23/21 10:51 BP 98/76 11/23/21 10:51 Pulse Ox 98 11/23/21 10:51 O2 Del Method 11/23/21 10:51 BMI result Body Mass Index 20.3 The patient is non-toxic & in good spirits NC/AT, PERRLA, EOMI Mood, affect & judgment all appear appropriate Sclera anicteric conjunctiva pink and moist Neck is supple with no masses, adenopathy or bruits Heart is regular, normal S1-S2 no rubs or murmurs Lungs are clear and equal anteriorly with no audible wheezing, rubs or dullness to percussion Abdomen is overweight with no demonstrable hernias. The patient has left lower quadrant and right-sided abdominal tenderness with mild peritoneal irritation in the left lower quadrant but none on the right. No HSM, rigidity, masses or bruits are present. Rectal exam is deferred Skin has good turgor and is free of rashes Extremities free of cyanosis clubbing edema Results Labs Result diagrams: 11/19/21 08:06 11/23/21 05:55 Labs: Abnormal lab results 11/23/21 11/23/21 Range/Units 05:55 05:55 BUN < 2 L (9-16) mg/dL Creatinine 0.42 L (0.5-1.4) mg/dL Calcium 8.3 L (8.4-10.2) mg/dL Magnesium 1.3 L* (1.6-2.6) mg/dL BMP 11/23/21 05:55 Sodium 142 Potassium 3.6 Chloride 108 Carbon Dioxide 22 BUN < 2 L Creatinine 0.42 L Calcium 8.3 L Urine 11/13/21 Range/Units 03:24 Urine Color Dark Yellow Urine Appearance Clear Urine pH 5.5 (5.0-9.0) Ur Specific Carpenter 1.020 (1.005-1.025) Urine Protein Trace (Neg-Trace) mg/dL Urine Glucose (UA) Negative (Negative) mg/dL All other labs normal. Imaging Abdomen CT scan report/results: report reviewed and image reviewed CT scan - pelvis: report reviewed and image reviewed Additional studies: Mild diverticulitis is noted per radiologist. Assessment and Plan (1) Alcohol use disorder, moderate, dependence: Status: Acute (2) Diarrhea: Status: Acute (3) Diverticulitis: Status: Acute (4) Depression: Status: Acute (5) SENA (generalized anxiety disorder): Status: Acute Plan I do not appreciate acute surgical pathology at this time. I am reticent to recommend partial colectomy and possible colostomy in the setting of diarrhea following antibiotic treatment or possible irritable bowel syndrome. We also need to exclude other etiologies including celiac given her family history. I will follow with you. Please call me with any questions. Procedures Date of Service Date of Service: 11/23/21
[2021-11-23 15:01] VITALS: BP 110/67; PULSE 85; RESP 18; TEMP 36.8; O2SAT 98
[2021-11-23 18:58] VITALS: BP 120/81; PULSE 95; RESP 18; TEMP 36.7; O2SAT 96
[2021-11-23] MEDS: HYDROmorphone HCl 0.5 MG/0.5 ML SYRINGE IVPUSH (23:54)
[2021-11-24] VITALS: BP 115/77; PULSE 84; RESP 18; TEMP 36.9; O2SAT 99
[2021-11-24] MEDS: 0.9 % Sodium Chloride Flush 3 ML SYRINGE IVFLUSH ×4 (01:01→23:58)
[2021-11-24 04:00] VITALS: BP 110/66; PULSE 83; RESP 18; TEMP 36.7; O2SAT 98
[2021-11-24] MEDS: Enoxaparin Sodium 40 MG/0.4 ML SYRINGE SUBCUT (04:18)
[2021-11-24] MEDS: Morphine Sulfate 2 MG/ML CARTRIDGE IVPUSH ×4 (04:18→23:46)
[2021-11-24] MEDS: Loperamide HCl 2 MG CAPSULE 4 MG PO (04:19)
[2021-11-24 07:49] VITALS: BP 109/77; PULSE 89; RESP 18; TEMP 36.6; O2SAT 99
[2021-11-24] MEDS: Thiamine HCL 100 MG TABLET PO (08:39)
[2021-11-24] MEDS: Folic Acid 1 MG TABLET PO (08:39)
[2021-11-24] MEDS: Famotidine/PF 20 MG/2 ML VIAL IVPUSH (08:39)
[2021-11-24] MEDS: Sertraline HCL 50 MG TABLET PO (08:39)
[2021-11-24] MEDS: Cholecalciferol (Vitamin D3) 25 MCG TABLET PO (08:39)
[2021-11-24] MEDS: Multivitamin TABLET 1 TAB PO (08:39)
[2021-11-24 08:52] LABS: Anion Gap 14 (12-20); Blood Urea Nitrogen 2 mg/dL (9-16); Calcium 8.7 mg/dL (8.4-10.2); Carbon Dioxide 25 mmol/L (22-29); Chloride 106 mmol/L (96-108); Creatinine Clr Calc Pharmacy 132.7; Estimated Glomerular Filt Rate > 60; Glucose Random 71 mg/dL (60-115); Magnesium 1.5 mg/dL (1.6-2.6); Potassium 4.2 mmol/L (3.3-5.1); Sodium 141 mmol/L (135-145)
[2021-11-24 11:48] VITALS: BP 99/68; PULSE 91; RESP 18; TEMP 36.8; O2SAT 97
[2021-11-24] MEDS: Lidocaine 4 % Patch ADH..PATCH 1 PATCH TRANSDERMA (12:28)
[2021-11-24] MEDS: Dicyclomine HCl 10 MG CAPSULE PO ×2 (12:29→17:57)
[2021-11-24] MEDS: Ondansetron ODT 4 MG TAB.RAPDIS TRANSLINGU (12:35)
--- NOTE | 2021-11-24 14:19 | PM.PNGS ---
Subjective Subjective Date of Service: 11/24/21 Patient reports: diarrhea Interval history: Patient was seen earlier this morning. She endorses no change in continued diarrhea with decreased p.o. intake. I discussed her case with Dr. Lebron yesterday and additional GI studies are currently pending. She otherwise denies chest pain or difficulty breathing. No focal neurologic symptoms Physical Exam Vital Signs: Vital Signs: Last Vital Signs Temp 98.2 F 11/24/21 11:48 Pulse 91 11/24/21 11:48 Resp 18 11/24/21 11:48 BP 99/68 11/24/21 11:48 Pulse Ox 97 11/24/21 11:48 O2 Del Method 11/24/21 11:48 BMI result Body Mass Index 20.3 She is nontoxic Abdomen is overweight with continued left lower quadrant and right-sided abdominal pain with no rigidity. Exam is essentially unchanged Objective Data Active Medications Acetaminophen (Acetaminophen 325 Mg Tablet) 650 mg PO Q6H PRN PRN Reason: Pain, Mild (Pain Scale 1-3) Last Admin: 11/22/21 03:56 Dose: 650 mg Documented By: CRISTELA Dicyclomine HCl (Dicyclomine Hcl 10 Mg Capsule) 10 mg PO TIDAC PRN PRN Reason: abdominal pain Last Admin: 11/24/21 12:29 Dose: 10 mg Documented By: SARMAD Enoxaparin Sodium (Enoxaparin Sodium 40 Mg/0.4 Ml Syringe) 40 mg SUBCUT Q24H [facility] Last Admin: 11/24/21 04:18 Dose: 40 mg Documented By: VINCENT Folic Acid (Folic Acid 1 Mg Tablet) 1 mg PO DAILY [facility] Last Admin: 11/24/21 08:39 Dose: 1 mg Documented By: SARMAD Lidocaine (Lidocaine 4 % Patch Adh..Patch) 1 patch TRANSDERMA DAILY [facility]; Protocol Last Admin: 11/24/21 12:28 Dose: 1 patch Documented By: SARMAD Loperamide HCl (Loperamide Hcl 2 Mg Capsule) 2 mg PO Q4H PRN PRN Reason: Diarrhea Last Admin: 11/18/21 08:40 Dose: 2 mg Documented By: GUNJAN Melatonin (Melatonin 3 Mg Tablet) 6 mg PO BEDTIME PRN PRN Reason: Insomnia Morphine Sulfate (Morphine Sulfate 2 Mg/Ml Cartridge) 2 mg IVPUSH Q4H PRN; Protocol PRN Reason: Pain, Severe (Pain Scale 7-10) Last Admin: 11/24/21 12:50 Dose: 2 mg Documented By: SARMAD Nitroglycerin (Nitroglycerin 0.4 Mg Tab.Subl) 0.4 mg SUBLINGUAL Q5MX3 PRN PRN Reason: Pain, Mild (Pain Scale 1-3) Ondansetron HCl (Ondansetron Hcl 4 Mg/2 Ml Vial) 4 mg IVPUSH Q8H PRN PRN Reason: Nausea and Vomiting Last Admin: 11/22/21 13:59 Dose: 4 mg Documented By: SVETA Ondansetron HCl (Ondansetron Odt 4 Mg Tab.Rapdis) 4 mg TRANSLINGU Q6H PRN PRN Reason: Nausea Last Admin: 11/24/21 12:35 Dose: 4 mg Documented By: SARMAD Sertraline HCl (Sertraline Hcl 50 Mg Tablet) 50 mg PO DAILY [facility] Last Admin: 11/24/21 08:39 Dose: 50 mg Documented By: SARMAD Sodium Chloride (0.9 % Sodium Chloride Flush 3 Ml Syringe) 3 ml IVFLUSH QSHIFT [facility] Last Admin: 11/24/21 08:40 Dose: 3 ml Documented By: SARMAD Vitamin D (Cholecalciferol (Vitamin D3) 25 Mcg Tablet) 25 mcg PO DAILY [facility] Last Admin: 11/24/21 08:39 Dose: 25 mcg Documented By: SARMAD Labs CBC & Chem 7: 11/19/21 08:06 11/24/21 07:56 Labs: Laboratory Results - last 24 hr 11/24/21 11/24/21 07:56 07:56 Anion Gap 14 Estim Creat Clear Calc 132.7 Estimated GFR > 60 Random Glucose 71 Calcium 8.7 Magnesium 1.5 L Procedures Date of Service Date of Service: 11/24/21 Progress Note: A&P Assessment and plan (1) Diarrhea: Status: Acute (2) SENA (generalized anxiety disorder): Status: Acute (3) Alcohol use disorder, moderate, dependence: Status: Acute (4) Diverticulitis: Status: Acute Plan I remain reticent to recommend bowel resection in this setting for diarrhea. Evaluate for other GI pathology. Adjust diet to low residue. Please call me with questions. I will continue to follow. Time Spent With Patient Time: Total time spent is greater than 50% in coordination of care (as documented) at patient's floor/unit and/or counseling patient: Quality Stroke Does the patient have a stroke diagnosis?: No VTE Prior VTE?: No VTE Risk Level:: Medical - low VTE Device Contraindication: Treatment Not Indicated VTE Drug Contraindication: N/A - Med Ordered
--- NOTE | 2021-11-24 15:27 | HO.PM.IMPN ---
Subjective Subjective Date of Service: 11/24/21 Interval History: patient had no loose stool this morning complaining of persistent left lower quadrant abdominal pain, no fevers, no chills, no nausea, no vomiting tolerating diet no overnight acute issues last bowel movement was yesterday Review of Systems Review of Systems: Yes all other systems are reviewed and are negative Physical Exam Vital Signs: Vital Signs: Last Vital Signs Temp 98.2 F 11/24/21 11:48 Pulse 91 11/24/21 11:48 Resp 18 11/24/21 11:48 BP 99/68 11/24/21 11:48 Pulse Ox 97 11/24/21 11:48 O2 Del Method 11/24/21 11:48 BMI result Body Mass Index 20.3 Const: Other: General awake alert x3 nontoxic-appearing,in no acute distress. Neck supple no JVD. CVS regular rate rhythm, Respiratory lungs clear to auscultation, no respiratory distress, no wheeze, no rhonchi. Gastrointestinal abdomen soft, bowel sounds audible, no guarding , no rigidity, left lower quadrant abdominal discomfort with superficial touch. Extremities no edema. Neuro nonfocal Skin no rash psych appropriate affect Objective Data Active Medications Acetaminophen (Acetaminophen 325 Mg Tablet) 650 mg PO Q6H PRN PRN Reason: Pain, Mild (Pain Scale 1-3) Last Admin: 11/22/21 03:56 Dose: 650 mg Documented By: CRISTELA Dicyclomine HCl (Dicyclomine Hcl 10 Mg Capsule) 10 mg PO TIDAC PRN PRN Reason: abdominal pain Last Admin: 11/24/21 12:29 Dose: 10 mg Documented By: SARMAD Enoxaparin Sodium (Enoxaparin Sodium 40 Mg/0.4 Ml Syringe) 40 mg SUBCUT Q24H COUNTS [facility]CLUDE 234 BEDS AT [facility] Last Admin: 11/24/21 04:18 Dose: 40 mg Documented By: VINCENT Folic Acid (Folic Acid 1 Mg Tablet) 1 mg PO DAILY COUNTS INCLUDE 234 BEDS AT THE [facility] Last Admin: 11/24/21 08:39 Dose: 1 mg Documented By: SARMAD Lidocaine (Lidocaine 4 % Patch Adh..Patch) 1 patch TRANSDERMA DAILY COUNTS INCLUDE 234 BEDS AT THE [facility]; Protocol Last Admin: 11/24/21 12:28 Dose: 1 patch Documented By: SARMAD Loperamide HCl (Loperamide Hcl 2 Mg Capsule) 2 mg PO Q4H PRN PRN Reason: Diarrhea Last Admin: 11/18/21 08:40 Dose: 2 mg Documented By: GUNJAN Melatonin (Melatonin 3 Mg Tablet) 6 mg PO BEDTIME PRN PRN Reason: Insomnia Morphine Sulfate (Morphine Sulfate 2 Mg/Ml Cartridge) 2 mg IVPUSH Q4H PRN; Protocol PRN Reason: Pain, Severe (Pain Scale 7-10) Last Admin: 11/24/21 12:50 Dose: 2 mg Documented By: SARMAD Nitroglycerin (Nitroglycerin 0.4 Mg Tab.Subl) 0.4 mg SUBLINGUAL Q5MX3 PRN PRN Reason: Pain, Mild (Pain Scale 1-3) Ondansetron HCl (Ondansetron Hcl 4 Mg/2 Ml Vial) 4 mg IVPUSH Q8H PRN PRN Reason: Nausea and Vomiting Last Admin: 11/22/21 13:59 Dose: 4 mg Documented By: SVETA Ondansetron HCl (Ondansetron Odt 4 Mg Tab.Rapdis) 4 mg TRANSLINGU Q6H PRN PRN Reason: Nausea Last Admin: 11/24/21 12:35 Dose: 4 mg Documented By: SARMAD Sertraline HCl (Sertraline Hcl 50 Mg Tablet) 50 mg PO DAILY COUNTS INCLUDE 234 BEDS AT THE [facility] Last Admin: 11/24/21 08:39 Dose: 50 mg Documented By: SARMAD Sodium Chloride (0.9 % Sodium Chloride Flush 3 Ml Syringe) [facility] Last Admin: 11/24/21 08:40 Dose: 3 ml Documented By: SARMAD Vitamin D (Cholecalciferol (Vitamin D3) 25 Mcg Tablet) 25 mcg PO DAILY COUNTS INCLUDE 234 BEDS AT THE [facility] Last Admin: 11/24/21 08:39 Dose: 25 mcg Documented By: SARMAD Labs CBC & Chem 7: 11/19/21 08:06 11/24/21 07:56 Labs: Laboratory Results - last 24 hr 11/24/21 11/24/21 07:56 07:56 Anion Gap 14 Estim Creat Clear Calc 132.7 Estimated GFR > 60 Random Glucose 71 Calcium 8.7 Magnesium 1.5 L Assessment and Plan (1) Diverticulitis: Status: Acute (2) Diarrhea: Status: Acute Plan 41-year-old female with pertinent history of alcohol use disorder, generalized anxiety disorder who presents to the emergency department with complaints of left-sided abdominal pain and diarrhea. Acute diverticulitis CT scan off abdomen 11/20 showed mild proximal sigmoid diverticulitis and ileus no evidence of sepsis seen by ID -completed course of zosyn complaining of persistent pain no diarrhea no nausea tolerating diet normal electrolytes magnesium slightly low, seen by General surgery no surgical intervention recommended workup for celiac disease ordered by GI will DC scheduled Imodium, minimize narcotic medication will place on Bentyl and Lidoderm patch recommend out of bed to chair and ambulation C diff toxin and stool studies negative Hypokalemia/hypomagnesemia from GI losses potassium improved, magnesium low will Replace and follow ? Alcohol use disorder Denies any withdrawal symptoms-last drink Labor Day Seen and evaluated by recovery team, offered referrals Would like naltrexone on discharge Generalized anxiety disorder Continue sertraline DVT prophylaxis Lovenox Full code Continue hospitalization for treatment of Acute diverticulitis, failed outpatient antibiotic therapy, need electrolyte replacement and pain control Quality Stroke Does the patient have a stroke diagnosis?: No VTE Prior VTE?: No VTE Risk Level:: Medical - low VTE Device Contraindication: Treatment Not Indicated VTE Drug Contraindication: N/A - Med Ordered
[2021-11-24 15:54] VITALS: BP 131/91; PULSE 97; RESP 18; TEMP 36.1; O2SAT 99
--- NOTE | 2021-11-24 15:56 | PM.GIPN ---
Subjective Subjective Date of Service: 11/24/21 Interval History: diarrhea improved still c/o lower abd pain Critical Care Time (minutes): 0 Physical Exam Vital Signs: Vital Signs: Last Vital Signs Temp 97 F 11/24/21 15:54 Pulse 97 11/24/21 15:54 Resp 18 11/24/21 15:54 BP 131/91 H 11/24/21 15:54 Pulse Ox 99 11/24/21 15:54 O2 Del Method 11/24/21 15:54 BMI result Body Mass Index 20.3 Const: Other: looks comfortable GI: Other: abdomen is soft, mild tenderness in lower abd Objective Data Labs CBC & Chem 7: 11/19/21 08:06 11/24/21 07:56 Labs: Laboratory Results - last 24 hr 11/24/21 11/24/21 07:56 07:56 Sodium 141 Potassium 4.2 Chloride 106 Carbon Dioxide 25 Anion Gap 14 BUN 2 L Creatinine 0.45 L Estim Creat Clear Calc 132.7 Estimated GFR > 60 Random Glucose 71 Calcium 8.7 Magnesium 1.5 L Microbiology Microbiology Results: Microbiology 11/13/21 07:28 Blood - Venous Blood Culture - Final No growth after 5 days. 11/13/21 07:33 Blood - Venous Blood Culture - Final No growth after 5 days. 11/13/21 Unknown Urine clean catch - Clean Catch Midstream Urine Culture - Final Procedures Date of Service Date of Service: 11/24/21 Progress Note: A&P Assessment and plan (1) Diverticulitis: Status: Acute Assessment and Plan: continue dicyclomine advance diet wean narcotics Time Spent With Patient Time: Total time spent is greater than 50% in coordination of care (as documented) at patient's floor/unit and/or counseling patient: Quality Stroke Does the patient have a stroke diagnosis?: No VTE Prior VTE?: No VTE Risk Level:: Medical - low VTE Device Contraindication: Treatment Not Indicated VTE Drug Contraindication: N/A - Med Ordered
[2021-11-24] MEDS: Magnesium Sulfate/H2O 2 GM/50 ML PIGGYBACK IV (16:07)
[2021-11-24 19:06] VITALS: BP 113/79; PULSE 89; RESP 17; TEMP 36.2; O2SAT 98
[2021-11-24] MEDS: ondansetron HCL 4 MG/2 ML VIAL IVPUSH (21:54)
[2021-11-25] VITALS (7 sets, daily range): BP systolic 99–129; BP diastolic 65–83; PULSE 78–136; RESP 16–18; TEMP 36–36.6; O2SAT 96–100
[2021-11-25] MEDS: Loperamide HCl 2 MG CAPSULE PO ×3 (01:51→22:46)
[2021-11-25] MEDS: Enoxaparin Sodium 40 MG/0.4 ML SYRINGE SUBCUT (03:11)
[2021-11-25 07:27] LABS: Magnesium 1.6 mg/dL (1.6-2.6)
[2021-11-25] MEDS: 0.9 % Sodium Chloride Flush 3 ML SYRINGE IVFLUSH ×2 (08:25→23:34)
[2021-11-25] MEDS: Lidocaine 4 % Patch ADH..PATCH 1 PATCH TRANSDERMA (08:25)
[2021-11-25] MEDS: ondansetron HCL 4 MG/2 ML VIAL IVPUSH ×2 (08:50→17:42)
[2021-11-25] MEDS: levoFLOXacin/D5W 750 MG/150 ML PIGGYBACK 100 MG IV (10:50)
[2021-11-25] MEDS: Acetaminophen 325 MG TABLET 650 MG PO (12:50)
[2021-11-25] MEDS: Dicyclomine HCl 10 MG CAPSULE PO ×2 (12:50→17:42)
[2021-11-25] MEDS: Lactated Ringers 1,000 ML 100 ML IVCONT (12:57)
--- NOTE | 2021-11-25 14:18 | HO.PM.IMPN ---
Subjective Subjective Date of Service: 11/25/21 Interval History: Complaining of left lower quadrant abdominal pain and multiple loose stools overnight. No fevers no chills reviewed old records patient is having diarrhea for last several months, this morning patient had an episode of vomiting. No headache, no dizziness, no urinary symptoms of urgency and frequency. Review of Systems Review of Systems: Yes all other systems are reviewed and are negative Physical Exam Vital Signs: Vital Signs: Last Vital Signs Temp 97.7 F 11/25/21 11:10 Pulse 136 H 11/25/21 11:10 Resp 16 11/25/21 11:10 BP 110/70 11/25/21 11:10 Pulse Ox 96 11/25/21 11:10 O2 Del Method 11/25/21 11:10 BMI result Body Mass Index 20.3 Const: Other: ?General? awake alert x3 nontoxic-appearing,in no acute distress.? Neck supple no JVD. CVS? regular rate rhythm, Respiratory lungs clear to auscultation, no respiratory distress, no wheeze, no rhonchi. Gastrointestinal abdomen soft, bowel sounds audible,left lower quadrant abdominal tenderness with palpation, mild guarding Extremities no edema. Neuro nonfocal? Skin no rash psych appropriate affect Objective Data Active Medications Acetaminophen (Acetaminophen 325 Mg Tablet) 650 mg PO Q6H PRN PRN Reason: Pain, Mild (Pain Scale 1-3) Last Admin: 11/25/21 12:50 Dose: 650 mg Documented By: SARMAD Dicyclomine HCl (Dicyclomine Hcl 10 Mg Capsule) 10 mg PO TIDAC PRN PRN Reason: abdominal pain Last Admin: 11/25/21 12:50 Dose: 10 mg Documented By: SARMAD Enoxaparin Sodium (Enoxaparin Sodium 40 Mg/0.4 Ml Syringe) 40 mg SUBCUT Q[facility]H [facility] Last Admin: 11/25/21 03:11 Dose: 40 mg Documented By: CRISTELA Levofloxacin (Levaquin) 750 mg in 150 mls @ 100 mls/hr IV Q24H [facility] Last Infusion: 11/25/21 12:57 Dose: 0 mls/hr Documented By: SARMAD Lactated Ringer's (Lr) 1,000 mls @ 100 mls/hr IVCONT .Q10H [facility] Stop: 11/25/21 19:59 Last Admin: 11/25/21 12:57 Dose: 100 mls/hr Documented By: SARMAD Lidocaine (Lidocaine 4 % Patch Adh..Patch) 1 patch TRANSDERMA DAILY [facility]; Protocol Last Admin: 11/25/21 08:25 Dose: 1 patch Documented By: SARMAD Loperamide HCl (Loperamide Hcl 2 Mg Capsule) 2 mg PO Q4H PRN PRN Reason: Diarrhea Last Admin: 11/25/21 10:50 Dose: 2 mg Documented By: SARMAD Melatonin (Melatonin 3 Mg Tablet) 6 mg PO BEDTIME PRN PRN Reason: Insomnia Morphine Sulfate (Morphine Sulfate 2 Mg/Ml Cartridge) 2 mg IVPUSH Q4H PRN; Protocol PRN Reason: Pain, Severe (Pain Scale 7-10) Last Admin: 11/24/21 23:46 Dose: 2 mg Documented By: VINCENT Nitroglycerin (Nitroglycerin 0.4 Mg Tab.Subl) 0.4 mg SUBLINGUAL Q5MX3 PRN PRN Reason: Pain, Mild (Pain Scale 1-3) Ondansetron HCl (Ondansetron Hcl 4 Mg/2 Ml Vial) 4 mg IVPUSH Q8H PRN PRN Reason: Nausea and Vomiting Last Admin: 11/25/21 08:50 Dose: 4 mg Documented By: SARMAD Sertraline HCl (Sertraline Hcl 50 Mg Tablet) 50 mg PO DAILY [facility] Last Admin: 11/25/21 10:51 Dose: Not Given Documented By: SARMAD Non-Admin Reason: nausea/vomiting Sodium Chloride (0.9 % Sodium Chloride Flush 3 Ml Syringe) 3 ml IVFLUSH QSHIFT [facility] Last Admin: 11/25/21 08:25 Dose: 3 ml Documented By: SARMAD Labs CBC & Chem 7: 11/19/21 08:06 11/24/21 07:56 Labs: Laboratory Results - last 24 hr 11/25/21 05:59 Magnesium 1.6 Assessment and Plan (1) Diverticulitis: Status: Acute (2) Diarrhea: Status: Acute Plan 41-year-old female with pertinent history of alcohol use disorder, generalized anxiety disorder who presents to the emergency department with complaints of left-sided abdominal pain and diarrhea. Acute diverticulitis Persistent abdominal pain, noted to have worsening diarrhea last night associated with nausea and vomiting this morning Had 3 CT scans of abdomen and pelvis all suggestive of mild proximal sigmoid diverticulitis and ileus, no mass was noted, no definite fistulous track was noted from left fallopian tube or ovary. no evidence of sepsis status post IV Zosyn Will place patient back on IV Levaquin, change diet to full liquids, treat with IV fluids, follow BMP and cbc recommend out of bed to chair and ambulation C diff toxin and stool studies negative Seen by GI workup for celiac disease ordered Hypokalemia/hypomagnesemia from GI losses repleted and normalized follow BMP Alcohol use disorder Denies any withdrawal symptoms-last drink Labor Day Seen and evaluated by recovery team, offered referrals Would like naltrexone on discharge Generalized anxiety disorder Continue sertraline DVT prophylaxis Lovenox Full code Continue hospitalization for treatment of Acute diverticulitis, failed outpatient antibiotic therapy, need electrolyte replacement and pain control Quality Stroke Does the patient have a stroke diagnosis?: No VTE Prior VTE?: No VTE Risk Level:: Medical - low VTE Device Contraindication: Treatment Not Indicated VTE Drug Contraindication: N/A - Med Ordered
--- NOTE | 2021-11-25 14:35 | MHC.CM.PN ---
PER PHYSICIAN ROUNDS, PATIENT IS BACK ON IV ABX. NO PLAN FOR DISCHARGE TODAY
[2021-11-25] MEDS: Morphine Sulfate 2 MG/ML CARTRIDGE 3 MG IVPUSH (18:53)
[2021-11-26] VITALS (8 sets, daily range): BP systolic 103–122; BP diastolic 60–80; PULSE 66–96; RESP 16–20; TEMP 36–36.6; O2SAT 98–100
[2021-11-26] MEDS: Morphine Sulfate 2 MG/ML CARTRIDGE 3 MG IVPUSH ×4 (00:51→23:27)
[2021-11-26] MEDS: Enoxaparin Sodium 40 MG/0.4 ML SYRINGE SUBCUT (05:27)
[2021-11-26] MEDS: Loperamide HCl 2 MG CAPSULE PO (06:43)
[2021-11-26] MEDS: ondansetron HCL 4 MG/2 ML VIAL IVPUSH ×2 (06:43→15:20)
[2021-11-26 06:44] LABS: Hematocrit 33.3 % (37.0-47.0); Hemoglobin 10.7 g/dl (12.0-16.0); Mean Corpuscular HGB Conc 32.1 g/dl (31.0-35.0); Mean Corpuscular Hemoglobin 30.6 pg (27.0-33.0); Mean Corpuscular Volume 95.1 fL (80.0-98.0); Platelet Count 317 X10*3/uL (160-400); Red Cell Distribution Width 13.2 % (11.0-16.0)
[2021-11-26 06:47] LABS: Anion Gap 16 (12-20); Blood Urea Nitrogen 3 mg/dL (9-16); Calcium 8.2 mg/dL (8.4-10.2); Carbon Dioxide 18 mmol/L (22-29); Chloride 110 mmol/L (96-108); Creatinine Clr Calc Pharmacy 135.7; Estimated Glomerular Filt Rate > 60; Glucose Random 75 mg/dL (60-115); Sodium 140 mmol/L (135-145)
--- NOTE | 2021-11-26 07:10 | PM.PNGS ---
Subjective Subjective Date of Service: 11/26/21 Interval history: The patient reports ongoing nausea, less vomiting and continued diarrhea. She also notes left lower quadrant and right-sided abdominal pain. Physical Exam Vital Signs: Vital Signs: Last Vital Signs Temp 97 F 11/26/21 06:55 Pulse 88 11/26/21 06:55 Resp 16 11/26/21 06:55 BP 107/80 11/26/21 06:55 Pulse Ox 98 11/26/21 06:55 O2 Del Method 11/26/21 06:55 BMI result Body Mass Index 20.3 Left lower quadrant pain with mild peritoneal irritation to percussion is noted. She is nontoxic Objective Data Active Medications Acetaminophen (Acetaminophen 325 Mg Tablet) 650 mg PO Q6H PRN PRN Reason: Pain, Mild (Pain Scale 1-3) Last Admin: 11/25/21 12:50 Dose: 650 mg Documented By: SARMAD Dicyclomine HCl (Dicyclomine Hcl 10 Mg Capsule) 10 mg PO TIDAC PRN PRN Reason: abdominal pain Last Admin: 11/25/21 17:42 Dose: 10 mg Documented By: SARMAD Enoxaparin Sodium (Enoxaparin Sodium 40 Mg/0.4 Ml Syringe) 40 mg SUBCUT Q24H [facility] Last Admin: 11/26/21 05:27 Dose: 40 mg Documented By: KIRSTEN Levofloxacin (Levaquin) 750 mg in 150 mls @ 100 mls/hr IV Q24H [facility] Last Infusion: 11/25/21 12:57 Dose: 0 mls/hr Documented By: SARMAD Lidocaine (Lidocaine 4 % Patch Adh..Patch) 1 patch TRANSDERMA DAILY [facility]; Protocol Last Admin: 11/25/21 08:25 Dose: 1 patch Documented By: SARMAD Loperamide HCl (Loperamide Hcl 2 Mg Capsule) 2 mg PO Q4H PRN PRN Reason: Diarrhea Last Admin: 11/26/21 06:43 Dose: 2 mg Documented By: KIRSTEN Melatonin (Melatonin 3 Mg Tablet) 6 mg PO BEDTIME PRN PRN Reason: Insomnia Morphine Sulfate (Morphine Sulfate 2 Mg/Ml Cartridge) 3 mg IVPUSH Q4H PRN; Protocol PRN Reason: Pain, Severe (Pain Scale 7-10) Last Admin: 11/26/21 06:43 Dose: 3 mg Documented By: KIRSTEN Nitroglycerin (Nitroglycerin 0.4 Mg Tab.Subl) 0.4 mg SUBLINGUAL Q5MX3 PRN PRN Reason: Pain, Mild (Pain Scale 1-3) Ondansetron HCl (Ondansetron Hcl 4 Mg/2 Ml Vial) 4 mg IVPUSH Q8H PRN PRN Reason: Nausea and Vomiting Last Admin: 11/26/21 06:43 Dose: 4 mg Documented By: KIRSTEN Sertraline HCl (Sertraline Hcl 50 Mg Tablet) 50 mg PO DAILY [facility] Last Admin: 11/25/21 10:51 Dose: Not Given Documented By: SARMAD Non-Admin Reason: nausea/vomiting Sodium Chloride (0.9 % Sodium Chloride Flush 3 Ml Syringe) 3 ml IVFLUSH QSHIFT [facility]AC[facility] Last Admin: 11/25/21 23:34 Dose: 3 ml Documented By: HEATHER Labs CBC & Chem 7: 11/26/21 06:22 11/26/21 06:22 Labs: Laboratory Results - last 24 hr 11/25/21 11/26/21 11/26/21 05:59 06:22 06:22 MCV 95.1 MCH 30.6 MCHC 32.1 RDW 13.2 Plt Count 317 D MPV 11.0 Absolute Nucleated RBC 0.000 Nucleated RBC % (auto) 0.0 Anion Gap 16 Estim Creat Clear Calc 135.7 Estimated GFR > 60 Random Glucose 75 Calcium 8.2 L Magnesium 1.6 Procedures Date of Service Date of Service: 11/26/21 Progress Note: A&P Assessment and plan (1) Alcohol use disorder, moderate, dependence: Status: Acute (2) Diarrhea: Status: Acute (3) Hypotension: Status: Acute (4) Depression: Status: Acute (5) SENA (generalized anxiety disorder): Status: Acute Plan The patient remains frustrated at her diarrhea. Without a discrete surgical etiology such as a stricture, I cannot offer any intervention this time. Recommend discussion with GI since the patient may have other etiology for her diarrhea. Time Spent With Patient Time: Total time spent is greater than 50% in coordination of care (as documented) at patient's floor/unit and/or counseling patient: Quality Stroke Does the patient have a stroke diagnosis?: No VTE Prior VTE?: No VTE Risk Level:: Medical - low VTE Device Contraindication: Treatment Not Indicated VTE Drug Contraindication: N/A - Med Ordered
[2021-11-26 08:22] LABS: Transglutaminase IgA >250.0 U/mL
--- NOTE | 2021-11-26 10:11 | MHC.CLN ---
Addendum entered by Ella Restrepo RD 11/26/21 15:17: DIET CHANGED TO REGULAR, GLUTEN FREE, LACTOSE FREE PER MD. TESTING SUSPICIOUS FOR CELIAC. Addendum entered by Ella Restrepo RD 11/26/21 10:22: CHANGING SUPPLEMENT TO ENSURE CLEAR TID DUE TO DIARRHEA. SUPPLEMENT PROVIDES ADDITIONAL 720 KCALS, 24 G PROTEIN. Original Note: NUTRITION PATIENT WITH ONGOING GI CONCERNS. CURRENT DIET=FULL LIQUID. ADDING ENSURE TID TO PROVIDE ADDITIONAL 1050 KCALS, 60 G PROTEIN. SINCE ADMISSION (11/13) PATIENT WITH 7 DAYS ON REGULAR DIET WITH OTHER DAYS EITHER PO, CLEAR LIQUIDS OR FULL LIQUIDS. VARIABLE INTAKE NOTED. FOLLOW FOR DIET ADVANCEMENT AND INTAKE.
[2021-11-26] MEDS: levoFLOXacin/D5W 750 MG/150 ML PIGGYBACK 150 MG IV (10:45)
[2021-11-26] MEDS: Sertraline HCL 50 MG TABLET PO (10:47)
[2021-11-26] MEDS: 0.9 % Sodium Chloride Flush 3 ML SYRINGE IVFLUSH ×3 (10:54→20:23)
[2021-11-26] MEDS: Lidocaine 4 % Patch ADH..PATCH 1 PATCH TRANSDERMA (10:54)
[2021-11-26 11:22] LABS: Immunoglobulin A 336 mg/dL (47-310)
--- NOTE | 2021-11-26 13:00 | HO.PM.IMPN ---
Subjective Subjective Date of Service: 11/26/21 Interval History: complaining of persistent left lower quadrant abdominal discomfort on and off diarrhea nausea and vomiting, concerned about nutrition since has been on and off on full liquid diets and NPO, no fevers no chills, no headache no dizziness ambulating without difficulty Review of Systems Review of Systems: Yes all other systems are reviewed and are negative Physical Exam Vital Signs: Vital Signs: Last Vital Signs Temp 97 F 11/26/21 06:55 Pulse 88 11/26/21 06:55 Resp 16 11/26/21 06:55 BP 107/80 11/26/21 06:55 Pulse Ox 98 11/26/21 06:55 O2 Del Method 11/26/21 06:55 BMI result Body Mass Index 20.3 Const: Other: ?General? awake alert x3 nontoxic-appearing,in no acute distress.? Neck supple no JVD. CVS? regular rate rhythm, Respiratory lungs clear to auscultation, no respiratory distress, no wheeze, no rhonchi. Gastrointestinal abdomen soft, bowel sounds audible,left lower quadrant abdominal tenderness with palpation, mild guarding Extremities no edema. Neuro nonfocal? Skin no rash psych appropriate affect Objective Data Active Medications Acetaminophen (Acetaminophen 325 Mg Tablet) 650 mg PO Q6H PRN PRN Reason: Pain, Mild (Pain Scale 1-3) Last Admin: 11/25/21 12:50 Dose: 650 mg Documented By: SARMAD Dicyclomine HCl (Dicyclomine Hcl 10 Mg Capsule) 10 mg PO TIDAC PRN PRN Reason: abdominal pain Last Admin: 11/25/21 17:42 Dose: 10 mg Documented By: SARMAD Enoxaparin Sodium (Enoxaparin Sodium 40 Mg/0.4 Ml Syringe) 40 mg SUBCUT Q24H [facility] Last Admin: 11/26/21 05:27 Dose: 40 mg Documented By: KIRSTEN Levofloxacin (Levaquin) 750 mg in 150 mls @ 100 mls/hr IV Q24H [facility] Last Infusion: 11/26/21 11:45 Dose: 0 mls/hr Documented By: RE Lidocaine (Lidocaine 4 % Patch Adh..Patch) 1 patch TRANSDERMA DAILY [facility]; Protocol Last Admin: 11/26/21 10:54 Dose: 1 patch Documented By: RE Loperamide HCl (Loperamide Hcl 2 Mg Capsule) 2 mg PO Q4H PRN PRN Reason: Diarrhea Last Admin: 11/26/21 06:43 Dose: 2 mg Documented By: KIRSTEN Melatonin (Melatonin 3 Mg Tablet) 6 mg PO BEDTIME PRN PRN Reason: Insomnia Morphine Sulfate (Morphine Sulfate 2 Mg/Ml Cartridge) 3 mg IVPUSH Q4H PRN; Protocol PRN Reason: Pain, Severe (Pain Scale 7-10) Last Admin: 11/26/21 10:56 Dose: 3 mg Documented By: RE Nitroglycerin (Nitroglycerin 0.4 Mg Tab.Subl) 0.4 mg SUBLINGUAL Q5MX3 PRN PRN Reason: Pain, Mild (Pain Scale 1-3) Ondansetron HCl (Ondansetron Hcl 4 Mg/2 Ml Vial) 4 mg IVPUSH Q8H PRN PRN Reason: Nausea and Vomiting Last Admin: 11/26/21 06:43 Dose: 4 mg Documented By: KIRSTEN Sertraline HCl (Sertraline Hcl 50 Mg Tablet) 50 mg PO DAILY [facility] Last Admin: 11/26/21 10:47 Dose: 50 mg Documented By: RE Sodium Chloride (0.9 % Sodium Chloride Flush 3 Ml Syringe) 3 ml IVFLUSH QSHIFT [facility] Last Admin: 11/26/21 10:54 Dose: 3 ml Documented By: RE Labs CBC & Chem 7: 11/26/21 06:22 11/26/21 06:22 Labs: Laboratory Results - last 24 hr 11/24/21 11/26/21 11/26/21 07:56 06:22 06:22 MCV 95.1 MCH 30.6 MCHC 32.1 RDW 13.2 Plt Count 317 D MPV 11.0 Absolute Nucleated RBC 0.000 Nucleated RBC % (auto) 0.0 Anion Gap 16 Estim Creat Clear Calc 135.7 Estimated GFR > 60 Random Glucose 75 Calcium 8.2 L IgA 336 H Tiss Transglutamin IgA >250.0 H Assessment and Plan (1) Diverticulitis: Status: Acute (2) Diarrhea: Status: Acute Plan 41-year-old female with pertinent history of alcohol use disorder, generalized anxiety disorder who presents to the emergency department with complaints of left-sided abdominal pain and diarrhea. Persistent abdominal pain nausea vomiting and diarrhea status post treatment for Acute diverticulitis Had 3 CT scans of abdomen and pelvis all suggestive of mild proximal sigmoid diverticulitis and ileus, no mass was noted, no definite fistulous track was noted from left fallopian tube or ovary. no evidence of sepsis status post IV Zosyn now on IV Levaquin, day 2 C diff toxin and stool studies negative tissue transglutaminase IgA greater than 250 consistent with celiac disease patient mother also has celiac disease case discussed with Dr. Decker will place patient on gluten free diet and lactose-free diet DC IV antibiotics follow clinical course if remains stable in next 24:48 hours will discharge home for outpatient upper endoscopy and biopsy but if continue to remain in hospital then will undergo upper endoscopy by Dr. Decker on Monday will continue as needed Imodium minimize narcotics, continue bentyl Hypokalemia/hypomagnesemia from GI losses repleted and normalized follow BMP Alcohol use disorder Denies any withdrawal symptoms-last drink Labor Day Seen and evaluated by recovery team, offered referrals Would like naltrexone on discharge Generalized anxiety disorder Continue sertraline DVT prophylaxis Lovenox Full code Continue hospitalization for treatment of persistent nausea vomiting abdominal discomfort,need electrolyte replacement and pain control Quality Stroke Does the patient have a stroke diagnosis?: No VTE Prior VTE?: No VTE Risk Level:: Medical - low VTE Device Contraindication: Treatment Not Indicated VTE Drug Contraindication: N/A - Med Ordered
[2021-11-26] MEDS: Dicyclomine HCl 10 MG CAPSULE PO ×2 (15:33→23:30)
--- NOTE | 2021-11-26 16:22 | MHC.CLN ---
CONSULT FOR GLUTEN FREE VISITED PATIENT TO DISCUSS GLUTEN FREE AND LACTOSE FREE DIET. PROVIDED HANDOUTS. PATIENT AWARE OF GLUTEN FREE FOODS SINCE MOTHER FOLLOWS DIET. ADDING ENSURE CLEAR TID TO PROVIDE ADDITIONAL 720 KCALS, 24 G PROTEIN. PRODUCT IS GLUTEN FREE AND SUITABLE FOR LACTOSE INTOLERANCE.
[2021-11-27] MEDS: Morphine Sulfate 2 MG/ML CARTRIDGE 3 MG IVPUSH ×3 (05:43→20:25)
[2021-11-27 06:52] LABS: Hematocrit 32.7 % (37.0-47.0); Hemoglobin 10.6 g/dl (12.0-16.0); Mean Corpuscular HGB Conc 32.4 g/dl (31.0-35.0); Mean Corpuscular Hemoglobin 29.8 pg (27.0-33.0); Mean Corpuscular Volume 91.9 fL (80.0-98.0); Platelet Count 296 X10*3/uL (160-400); Red Blood Count 3.56 X10*6/uL (4.20-5.50); Red Cell Distribution Width 12.8 % (11.0-16.0); White Blood Count 5.3 X10*3/uL (4.8-10.8)
[2021-11-27 07:23] LABS: Albumin Level 2.7 g/dL (3.5-5.0); Anion Gap 15 (12-20); Blood Urea Nitrogen 3 mg/dL (9-16); Carbon Dioxide 20 mmol/L (22-29); Chloride 109 mmol/L (96-108); Creatinine Clr Calc Pharmacy 129.8; Estimated Glomerular Filt Rate > 60; Glucose Random 84 mg/dL (60-115); Potassium 4.1 mmol/L (3.3-5.1); Sodium 140 mmol/L (135-145)
[2021-11-27 07:47] VITALS: BP 87/53; PULSE 71; RESP 17; TEMP 36.6; O2SAT 97
[2021-11-27 08:45] LABS: C Reactive Protein 0.05 mg/dL (< or = 0.50); Magnesium 1.4 mg/dL (1.6-2.6)
[2021-11-27] MEDS: Sertraline HCL 50 MG TABLET PO (09:10)
[2021-11-27] MEDS: 0.9 % Sodium Chloride Flush 3 ML SYRINGE IVFLUSH ×3 (09:10→20:30)
[2021-11-27] MEDS: 0.9 % Sodium Chloride 1,000 ML 500 ML IVCONT (09:10)
[2021-11-27] MEDS: Magnesium Sulfate/H2O 2 GM/50 ML PIGGYBACK IV (09:28)
[2021-11-27] MEDS: Dicyclomine HCl 10 MG CAPSULE PO (09:31)
[2021-11-27] MEDS: Loperamide HCl 2 MG CAPSULE PO (09:31)
[2021-11-27 11:43] VITALS: BP 120/74; PULSE 80; RESP 17; TEMP 36.6; O2SAT 98
--- NOTE | 2021-11-27 12:53 | HO.PM.IMPN ---
Subjective Subjective Date of Service: 11/27/21 Interval History: nausea/vomiting improved, tolerating solid diet but still has LLQ pain no fever/chills BP low this AM, improved after 1L isotonic fluids IV Review of Systems Review of Systems: Yes all other systems are reviewed and are negative Physical Exam Vital Signs: Vital Signs: Last Vital Signs Temp 97.9 F 11/27/21 11:43 Pulse 80 11/27/21 11:43 Resp 17 11/27/21 11:43 BP 120/74 11/27/21 11:43 Pulse Ox 98 11/27/21 11:43 O2 Del Method 11/27/21 11:43 BMI result Body Mass Index 20.3 Gen: in no acute distress HEENT: sclera anicteric, moist mucus membranes Neck: supple Lungs: clear to auscultation bilaterally Heart: regular rate and rhythm, no murmurs Abd: soft, non-distended, LLQ tender without rebound/guarding Ext: no edema Skin: warm/well-perfused Neuro: alert and oriented x3, no focal findings Psych: appropriate affect Objective Data Active Medications Acetaminophen (Acetaminophen 325 Mg Tablet) 650 mg PO Q6H PRN PRN Reason: Pain, Mild (Pain Scale 1-3) Last Admin: 11/25/21 12:50 Dose: 650 mg Documented By: SARMAD Dicyclomine HCl (Dicyclomine Hcl 10 Mg Capsule) 10 mg PO TIDAC PRN PRN Reason: abdominal pain Last Admin: 11/27/21 09:31 Dose: 10 mg Documented By: JEWEL Enoxaparin Sodium (Enoxaparin Sodium 40 Mg/0.4 Ml Syringe) 40 mg SUBCUT Q24H [facility] Last Admin: 11/27/21 05:48 Dose: Not Given Documented By: TASHA Non-Admin Reason: Patient Refused Lidocaine (Lidocaine 4 % Patch Adh..Patch) 1 patch TRANSDERMA DAILY [facility]; Protocol Last Admin: 11/27/21 09:09 Dose: Not Given Documented By: JEWEL Non-Admin Reason: Patient Refused Loperamide HCl (Loperamide Hcl 2 Mg Capsule) 2 mg PO Q4H PRN PRN Reason: Diarrhea Last Admin: 11/27/21 09:31 Dose: 2 mg Documented By: JEWEL Magnesium Oxide (Magnesium Oxide 400 Mg Tablet) 400 mg PO BIDPC [facility] Melatonin (Melatonin 3 Mg Tablet) 6 mg PO BEDTIME PRN PRN Reason: Insomnia Morphine Sulfate (Morphine Sulfate 2 Mg/Ml Cartridge) 3 mg IVPUSH Q6H PRN; Protocol PRN Reason: Pain, Severe (Pain Scale 7-10) Last Admin: 11/27/21 11:44 Dose: 3 mg Documented By: JEWEL Ondansetron HCl (Ondansetron Hcl 4 Mg/2 Ml Vial) 4 mg IVPUSH Q8H PRN PRN Reason: Nausea and Vomiting Last Admin: 11/26/21 15:20 Dose: 4 mg Documented By: RE Sertraline HCl (Sertraline Hcl 50 Mg Tablet) 50 mg PO DAILY [facility] Last Admin: 11/27/21 09:10 Dose: 50 mg Documented By: JEWEL Sodium Chloride (0.9 % Sodium Chloride Flush 3 Ml Syringe) 3 ml IVFLUSH QSHIFT [facility] Last Admin: 11/27/21 09:10 Dose: 3 ml Documented By: JEWEL Labs CBC & Chem 7: 11/27/21 05:51 11/27/21 05:51 Labs: Laboratory Results - last 24 hr 11/27/21 11/27/21 05:51 05:51 MCV 91.9 MCH 29.8 MCHC 32.4 RDW 12.8 Plt Count 296 MPV 11.0 Absolute Nucleated RBC 0.000 Nucleated RBC % (auto) 0.0 Anion Gap 15 Estim Creat Clear Calc 129.8 Estimated GFR > 60 Random Glucose 84 Calcium 8.0 L Magnesium 1.4 L* C-Reactive Protein 0.05 Albumin 2.7 L Assessment and Plan (1) Diverticulitis: Status: Acute (2) Diarrhea: Status: Acute Plan d#15 41yo F with AUD + SENA presenting with LLQ pain + diarrhea # acute diverticulitis - 3 CT scans of abdomen and pelvis all suggestive of mild proximal sigmoid diverticulitis and ileus; no mass was noted; no perforation; no definite fistulous track was noted from left fallopian tube or ovary - completed IV pip/felipe + levofloxacin - C diff + stool studies negative # celiac disease - anti-TTG IgA >250; mother also has celiac disease; placed on gluten- and lactose-free diet and tolerating - GI f/u as outpt unless fails to improve in which case will have inpt eGD on 11/30 # hypoMg - replete IV/PO, recheck in AM # hypoK - repleted # hypotension - resolved s/p IV fluid bolus # AUD - resume naltrexone upon discharge # SENA - continue sertraline # VTE ppx: LMWH In my clinical judgment, the patient requires continued hospitalization for the following reasons: pain control, electrolyte replacement Quality Stroke Does the patient have a stroke diagnosis?: No VTE Prior VTE?: No VTE Risk Level:: Medical - low VTE Device Contraindication: Treatment Not Indicated VTE Drug Contraindication: N/A - Med Ordered
[2021-11-27 15:15] VITALS: BP 98/62; PULSE 84; RESP 17; TEMP 36.7; O2SAT 98
[2021-11-27] MEDS: oxyCODONE HCl Immed Release 5 MG TABLET PO ×2 (17:01→23:01)
[2021-11-27] MEDS: Magnesium Oxide 400 MG TABLET PO (17:01)
[2021-11-27] MEDS: ondansetron HCL 4 MG/2 ML VIAL IVPUSH (17:01)
[2021-11-27 19:56] VITALS: BP 115/78; PULSE 73; RESP 19; TEMP 36.1; O2SAT 97
[2021-11-27 23:31] VITALS: BP 105/65; PULSE 82; RESP 16; TEMP 36.1; O2SAT 99
[2021-11-28 06:48] LABS: Magnesium 1.7 mg/dL (1.6-2.6)
[2021-11-28 07:38] VITALS: BP 95/65; PULSE 99; RESP 18; TEMP 36.9; O2SAT 98
[2021-11-28] MEDS: Morphine Sulfate 2 MG/ML CARTRIDGE 3 MG IVPUSH ×3 (09:09→23:41)
[2021-11-28] MEDS: ondansetron HCL 4 MG/2 ML VIAL IVPUSH (09:09)
[2021-11-28] MEDS: Sertraline HCL 50 MG TABLET PO (09:10)
[2021-11-28] MEDS: Magnesium Oxide 400 MG TABLET PO ×2 (09:10→16:14)
[2021-11-28] MEDS: Lidocaine 4 % Patch ADH..PATCH 1 PATCH TRANSDERMA (09:17)
[2021-11-28] MEDS: 0.9 % Sodium Chloride Flush 3 ML SYRINGE IVFLUSH ×3 (09:18→23:41)
--- NOTE | 2021-11-28 10:16 | HO.PM.IMPN ---
Subjective Subjective Date of Service: 11/28/21 Interval History: c/o severe LLQ pain N/V improving, though; tolerating solid diet Review of Systems Review of Systems: Yes all other systems are reviewed and are negative Physical Exam Vital Signs: Vital Signs: Last Vital Signs Temp 98.4 F 11/28/21 07:38 Pulse 99 11/28/21 07:38 Resp 18 11/28/21 07:38 BP 95/65 11/28/21 07:38 Pulse Ox 98 11/28/21 07:38 O2 Del Method 11/28/21 07:38 BMI result Body Mass Index 20.3 Gen: in no acute distress HEENT: sclera anicteric, moist mucus membranes Neck: supple Lungs: clear to auscultation bilaterally Heart: regular rate and rhythm, no murmurs Abd: soft, non-distended, LLQ tender without rebound/guarding Ext: no edema Skin: warm/well-perfused Neuro: alert and oriented x3, no focal findings Psych: appropriate affect Objective Data Active Medications Acetaminophen (Acetaminophen 325 Mg Tablet) 650 mg PO Q6H PRN PRN Reason: Pain, Mild (Pain Scale 1-3) Last Admin: 11/25/21 12:50 Dose: 650 mg Documented By: SARMAD Dicyclomine HCl (Dicyclomine Hcl 10 Mg Capsule) 10 mg PO TIDAC PRN PRN Reason: abdominal pain Last Admin: 11/27/21 09:31 Dose: 10 mg Documented By: JEWEL Enoxaparin Sodium (Enoxaparin Sodium 40 Mg/0.4 Ml Syringe) 40 mg SUBCUT Q24H [facility] Last Admin: 11/28/21 03:40 Dose: Not Given Documented By: TASHA Non-Admin Reason: Patient Refused Lidocaine (Lidocaine 4 % Patch Adh..Patch) 1 patch TRANSDERMA DAILY [facility]; Protocol Last Admin: 11/28/21 09:17 Dose: 1 patch Documented By: JEWEL Loperamide HCl (Loperamide Hcl 2 Mg Capsule) 2 mg PO Q4H PRN PRN Reason: Diarrhea Last Admin: 11/27/21 09:31 Dose: 2 mg Documented By: JEWEL Magnesium Oxide (Magnesium Oxide 400 Mg Tablet) 400 mg PO BIDPC [facility] Last Admin: 11/28/21 09:10 Dose: 400 mg Documented By: JEWEL Melatonin (Melatonin 3 Mg Tablet) 6 mg PO BEDTIME PRN PRN Reason: Insomnia Morphine Sulfate (Morphine Sulfate 2 Mg/Ml Cartridge) 3 mg IVPUSH Q6H PRN; Protocol PRN Reason: Pain, Severe (Pain Scale 7-10) Last Admin: 11/28/21 09:09 Dose: 3 mg Documented By: JEWEL Ondansetron HCl (Ondansetron Hcl 4 Mg/2 Ml Vial) 4 mg IVPUSH Q8H PRN PRN Reason: Nausea and Vomiting Last Admin: 11/28/21 09:09 Dose: 4 mg Documented By: JEWEL Oxycodone HCl (Oxycodone Hcl Immed Release 5 Mg Tablet) 5 mg PO Q6H PRN PRN Reason: moderate pain Last Admin: 11/27/21 23:01 Dose: 5 mg Documented By: TASHA Sertraline HCl (Sertraline Hcl 50 Mg Tablet) 50 mg PO DAILY [facility] Last Admin: 11/28/21 09:10 Dose: 50 mg Documented By: JEWEL Sodium Chloride (0.9 % Sodium Chloride Flush 3 Ml Syringe) 3 ml IVFLUSH QSHIFT [facility] Last Admin: 11/28/21 09:18 Dose: 3 ml Documented By: JEWEL Labs CBC & Chem 7: 11/27/21 05:51 11/27/21 05:51 Labs: Laboratory Results - last 24 hr 11/28/21 05:56 Magnesium 1.7 Assessment and Plan (1) Diverticulitis: Status: Acute (2) Diarrhea: Status: Acute Plan d#16 41yo F with AUD + SENA presenting with LLQ pain + diarrhea # acute diverticulitis - 3 CT scans of abdomen and pelvis all suggestive of mild proximal sigmoid diverticulitis and ileus; no mass was noted; no perforation; no definite fistulous track was noted from left fallopian tube or ovary - completed IV pip/felipe course + levofloxacin discontinued after 2d - C diff + stool studies negative # celiac disease - anti-TTG IgA >250; mother also has celiac disease; placed on gluten- and lactose-free diet and tolerating - GI f/u as outpt unless fails to improve in which case will have inpt EGD on 11/30 # hypoMg - repleted # hypoK - repleted # hypotension - resolved s/p IV fluid bolus # AUD - resume naltrexone upon discharge # SENA - continue sertraline # VTE ppx: LMWH In my clinical judgment, the patient requires continued hospitalization for the following reasons: pain control Quality Stroke Does the patient have a stroke diagnosis?: No VTE Prior VTE?: No VTE Risk Level:: Medical - low VTE Device Contraindication: Treatment Not Indicated VTE Drug Contraindication: N/A - Med Ordered
[2021-11-28 11:44] VITALS: BP 105/78; PULSE 81; RESP 17; TEMP 36.4; O2SAT 98
[2021-11-28] MEDS: oxyCODONE HCl Immed Release 5 MG TABLET PO ×2 (12:49→22:45)
[2021-11-28] MEDS: Loperamide HCl 2 MG CAPSULE PO (12:49)
[2021-11-28 15:15] VITALS: BP 105/65; PULSE 92; RESP 17; TEMP 37.1; O2SAT 96
[2021-11-28 20:00] VITALS: BP 111/78; PULSE 79; RESP 18; TEMP 36.4; O2SAT 99
[2021-11-28 23:41] VITALS: BP 121/81; PULSE 93; RESP 18; TEMP 36.6; O2SAT 99
[2021-11-29 03:48] VITALS: BP 96/55; PULSE 71; RESP 18; TEMP 36.5; O2SAT 98
[2021-11-29 07:00] VITALS: BP 100/61; PULSE 88; RESP 16; TEMP 37; O2SAT 98
[2021-11-29] MEDS: Lidocaine 4 % Patch ADH..PATCH 1 PATCH TRANSDERMA (08:34)
[2021-11-29] MEDS: Magnesium Oxide 400 MG TABLET PO ×2 (08:34→16:31)
[2021-11-29] MEDS: Sertraline HCL 50 MG TABLET PO (08:34)
[2021-11-29] MEDS: Morphine Sulfate 2 MG/ML CARTRIDGE 3 MG IVPUSH ×2 (08:35→14:57)
[2021-11-29] MEDS: ondansetron HCL 4 MG/2 ML VIAL IVPUSH (08:35)
[2021-11-29] MEDS: 0.9 % Sodium Chloride Flush 3 ML SYRINGE IVFLUSH ×2 (08:35→14:58)
--- NOTE | 2021-11-29 09:15 | MHC.CM.PN ---
pt dcd home no skilled services ordered by
--- NOTE | 2021-11-29 10:35 | PM.DS ---
DS: Providers Provider Date of Service: 11/29/21 Date of admission: 11/13/21 04:12 Date of discharge: 11/29/21 Primary care physician: Ollie Pulliam PA-C Consults: 11/13/21 14:53 Addiction Medicine Routine Consulting Provider: Kerrie Mulligan Reason for consultation: alcohol abuse Has provider been notified: No 11/15/21 13:40 Consult to Infectious Diseases Routine Consulting Provider: Katie Schroeder Reason for consultation: diverticultitis failed outpatient antibiotics Has provider been notified: No 11/17/21 10:15 Consult to Gastroenterology Routine Consulting Provider: Mark Lebron Reason for consultation: diarrhea 11/23/21 09:12 Consult to General Surgery Routine Consulting Provider: Angel Evans Reason for consultation: diverticulitis Has provider been notified: No DS: Diagnosis Discharge Diagnosis (1) Diverticulitis: Status: Acute (2) Diarrhea: Status: Acute (3) Celiac disease: Status: Acute (4) IBS (irritable bowel syndrome): Status: Acute (5) Low magnesium level: Status: Acute (6) Alcohol use disorder, severe, dependence: Status: Acute DS: Summary Hospital Course Hospital Course: from history and physical by admitting hospitalist Prema Manning, 11/13/21: This is a 41-year-old female with pertinent history of alcohol use disorder, generalized anxiety disorder who presents to the emergency department with complaints of left-sided abdominal pain and diarrhea.? Patient was admitted to [facility] and discharged on 11/02 for E coli bacteremia and 7.2 x 4 x 4cm abscess encasing the left ovary.? She underwent IR guided drain placement which was subsequently removed during the admission.? Gynecology service felt that the collection was not as a result of TOA but possibly more diverticular in nature.? A repeat CT scan on 10/31 was without residual fluid collection and patient was discharged with Augmentin to complete antibiotic course.? Patient states she did not take Augmentin at home as she is allergic to it.? Patient continued to have left-sided abdominal pain after discharge with 8-10 episodes of diarrhea every day.? Any? p.o. intake made her nauseous , caused left-sided abdominal pain and diarrhea.? Patient also had to get up 3-4 times at night for diarrhea.? Patient went to her PCP on 11/10 who sent her to the ER.? In the ER, abdominal imaging was concerning for diverticulitis and she was discharged on p.o. ciprofloxacin and Flagyl.? Patient states she took oral antibiotics but there was no relief in her symptoms and hence decided to present today.? Patient denies similar symptoms in the past, prior to [facility] admission.? Patient denies fever, chills, chest pain, shortness a breath, palpitations, changes in urinary habits. This 41yo F with AUD + SENA presenting with LLQ pain + diarrhea was admitted for acute diverticulitis that did not improve with oral antibiotics. During her prolonged hospitalization, she had 2 CT scans of abdomen and pelvis suggestive of mild proximal sigmoid diverticulitis and ileus. No mass was noted, and there was no evidence of perforation or a fistulous track from the left fallopian tube or ovary. She completed a course of IV piperacillin/tazobactam with clinical improvement. Clostridium difficile and stool studies were negative. Due to persistent diarrhea, she was tested for celiac disease, and indeed, her anti-TTG IgA was markedly elevated at >250. She was placed on a gluten-free diet. She will follow up with Gastroenterology as an outpatient. She was placed on oral magnesium for low serum magnesium level. The importance of sobriety was counseled. She was instructed to resume naltrexone only after she is no longer on oxycodone for severe pain. She was discharged home with instruction to follow-up with her primary care doctor. Time Spent with Patient Time attestation: Total time spent providing and/or coordinating discharge services: 35 Discharge coordination time: Greater than 30 minutes Quality: Safe Use of Opioids Does Pt have an Active Cancer Diagnosis on the Problem List?: No Quality: Stroke Does the patient have a stroke diagnosis?: No Physical Exam Vital Signs: Vital Signs: Last Vital Signs Temp 98.6 F 11/29/21 07:00 Pulse 88 11/29/21 07:00 Resp 16 11/29/21 07:00 BP 100/61 11/29/21 07:00 Pulse Ox 98 11/29/21 07:00 O2 Del Method 11/29/21 07:00 BMI result Body Mass Index 20.3 Gen: in no acute distress HEENT: sclera anicteric, moist mucus membranes Neck: supple Lungs: clear to auscultation bilaterally Heart: regular rate and rhythm, no murmurs Abd: soft, mild LLQ tenderness without rebound, non-distended Ext: no edema Skin: warm/well-perfused Neuro: alert and oriented x3, no focal findings Psych: appropriate affect DS: Data Data Completed and Pending Completed studies during hospitalization [Text1]: Laboratory Results WBC 5.3 X10*3/uL (4.8-10.8) 11/27/21 05:51 RBC 3.56 X10*6/uL (4.20-5.50) L 11/27/21 05:51 Hgb 10.6 g/dl (12.0-16.0) L 11/27/21 05:51 Hct 32.7 % (37.0-47.0) L 11/27/21 05:51 MCV 91.9 fL (80.0-98.0) 11/27/21 05:51 MCH 29.8 pg (27.0-33.0) 11/27/21 05:51 MCHC 32.4 g/dl (31.0-35.0) 11/27/21 05:51 RDW 12.8 % (11.0-16.0) 11/27/21 05:51 Plt Count 296 X10*3/uL (160-400) 11/27/21 05:51 MPV 11.0 fL (9.4-12.3) 11/27/21 05:51 Immature Gran % (Auto) 0.2 % (0.0-0.4) 11/13/21 07:32 Neut % (Auto) 33.8 % (45-73) L 11/13/21 07:32 Lymph % (Auto) 45.0 % (20-40) H 11/13/21 07:32 Mccormick % (Auto) 13.9 % (2-11) H 11/13/21 07:32 Eos % (Auto) 6.3 % (0-4) H 11/13/21 07:32 Baso % (Auto) 0.8 % (0-2) 11/13/21 07:32 Lymph # (Auto) 2.9 X10*3/uL (1.2-4.9) 11/13/21 07:32 Mccormick # (Auto) 0.9 X10*3/uL (0.1-1.2) 11/13/21 07:32 Eos # (Auto) 0.4 X10*3/uL (0.0-0.4) 11/13/21 07:32 Baso # (Auto) 0.1 X10*3/uL (0.0-0.2) 11/13/21 07:32 Abs Immat Gran (auto) 0.01 X10*3/uL (0.00-0.03) 11/13/21 07:32 Absolute Neuts (auto) 2.2 x10*3/uL (2.0-8.3) 11/13/21 07:32 Absolute Nucleated RBC 0.000 X10*3/uL (0.0-0.012) 11/27/21 05:51 Nucleated RBC % (auto) 0.0 /100WBC (0.0-0.2) 11/27/21 05:51 VBG pH 7.40 (7.32-7.43) 11/13/21 07:38 VBG pCO2 31 mmHg 11/13/21 07:38 VBG pO2 87 mmHg 11/13/21 07:38 VBG HCO3 19 mmol/L (22-26) L 11/13/21 07:38 VBG O2 Saturation 97.0 % 11/13/21 07:38 VBG Base Excess -4.3 mmol/L 11/13/21 07:38 Sodium 140 mmol/L (135-145) 11/27/21 05:51 Potassium 4.1 mmol/L (3.3-5.1) 11/27/21 05:51 Chloride 109 mmol/L (96-108) H 11/27/21 05:51 Carbon Dioxide 20 mmol/L (22-29) L 11/27/21 05:51 Anion Gap 15 (12-20) 11/27/21 05:51 BUN 3 mg/dL (9-16) L 11/27/21 05:51 Creatinine 0.46 mg/dL (0.5-1.4) L 11/27/21 05:51 Estim Creat Clear Calc 129.8 11/27/21 05:51 Estimated GFR > 60 11/27/21 05:51 Random Glucose 84 mg/dL (60-115) 11/27/21 05:51 Lactic Acid 1.8 mmol/L (0.5-2.0) 11/13/21 07:32 Calcium 8.0 mg/dL (8.4-10.2) L 11/27/21 05:51 Magnesium 1.7 mg/dL (1.6-2.6) 11/28/21 05:56 Total Bilirubin 0.5 mg/dL (0.0-1.0) 11/12/21 17:43 Direct Bilirubin 0.2 mg/dL (0.0-0.5) 11/12/21 17:43 AST 54 U/L (5-31) H 11/12/21 17:43 ALT 23 U/L (0-31) 11/12/21 17:43 Alkaline Phosphatase 88 U/L (39-117) 11/12/21 17:43 Troponin I High Sens < 3.5 ng/L (<3.5-17.0) 11/21/21 23:53 C-Reactive Protein 0.05 mg/dL (< or = 0.50) 11/27/21 05:51 Total Protein 6.5 g/dL (6.5-8.0) 11/12/21 17:43 Albumin 2.7 g/dL (3.5-5.0) L 11/27/21 05:51 Lipase 19 U/L (8-78) 11/12/21 17:43 TSH 2.53 uIU/mL (0.32-4.0) 11/14/21 05:37 Urine Color Dark Yellow 11/13/21 03:24 Urine Appearance Clear 11/13/21 03:24 Urine pH 5.5 (5.0-9.0) 11/13/21 03:24 Ur Specific Wiseman 1.020 (1.005-1.025) 11/13/21 03:24 Urine Protein Trace mg/dL (Neg-Trace) 11/13/21 03:24 Urine Glucose (UA) Negative mg/dL (Negative) 11/13/21 03:24 Urine Ketones Negative mg/dL (Negative) 11/13/21 03:24 Urine Blood Negative (Negative) 11/13/21 03:24 Urine Nitrite Negative (Negative) 11/13/21 03:24 Ur Leukocyte Esterase Trace (Negative) H 11/13/21 03:24 Urine RBC 3-5 /HPF (0-2) H 11/13/21 03:24 Urine WBC 6-10 /HPF (0-5) H 11/13/21 03:24 Ur Squamous Epith Cells 11-20 /HPF (0-2) 11/13/21 03:24 Urine Bacteria None Seen (None Seen) 11/13/21 03:24 Hyaline Casts 3-5 /LPF (0-2) 11/13/21 03:24 Stool Leukocytes, Qual MOD: 3-9/OIF (NEGATIVE) 11/14/21 01:30 Stl C. cayetanensis PCR Not Detected (Not Detect.) 11/13/21 02:24 Stool Rotavirus A PCR Not Detected (Not Detect.) 11/13/21 02:24 Stl Adenov F 40/41 PCR Not Detected (Not Detect.) 11/13/21 02:24 Stool Astrovirus (PCR) Not Detected (Not Detect.) 11/13/21 02:24 Stool Campylobacter PCR Not Detected (Not Detect.) 11/13/21 02:24 Stool Cryptosporidium PCR Not Detected (Not Detect.) 11/13/21 02:24 Stl Sh Tox Pr E STEC PCR Not Detected (Not Detect.) 11/13/21 02:24 Stool E coli O157 PCR Not applicable (Not Detect.) 11/13/21 02:24 Stl Enterotoxigenic E PCR Not Detected (Not Detect.) 11/13/21 02:24 Stool EPEC (PCR) Not Detected (Not Detect.) 11/13/21 02:24 Stool EAEC (PCR) Not Detected (Not Detect.) 11/13/21 02:24 Stl E. histolytica PCR Not Detected (Not Detect.) 11/13/21 02:24 Stool Giardia Lamblia PCR Not Detected (Not Detect.) 11/13/21 02:24 Stl P. shigelloides PCR Not Detected (Not Detect.) 11/13/21 02:24 Stool Salmonella PCR Not Detected (Not Detect.) 11/13/21 02:24 Stool Sapovirus (PCR) Not Detected (Not Detect.) 11/13/21 02:24 Stl Shigella/EIEC PCR Not Detected (Not Detect.) 11/13/21 02:24 St Y.enterocolitica PCR Not Detected (Not Detect.) 11/13/21 02:24 Stool Vibrio (PCR) Not Detected (Not Detect.) 11/13/21 02:24 Stl Vibrio cholerae PCR Not Detected (Not Detect.) 11/13/21 02:24 Stl Norovirus GI/GII PCR Not Detected (Not Detect.) 11/13/21 02:24 IgA 336 mg/dL (47-310) H 11/24/21 07:56 Tiss Transglutamin IgA >250.0 U/mL H 11/24/21 07:56 C. difficile Tox B Gene NEGATIVE (Negative) 11/18/21 13:05 ITS Impressions Abdomen/Pelvis CT 11/13/21 02:41 IMPRESSION: Again suggestion of mild diverticulitis of the sigmoid colon. No fluid collections. Hepatic steatosis. Fleischner guidelines were followed. Abdomen/Pelvis CT 11/20/21 10:48 IMPRESSION: Diverticulosis and question mild diverticulitis of the proximal sigmoid colon. This is similar to previous exam. Increasing fluid-filled small and large bowel probably representing an ileus. Enlarged fatty liver. Enlarged gallbladder. Hyperdense left renal cyst. Fleischner guidelines were followed. Discharge Plan Discharge Anticipated Discharge Date/Time: 11/29/21 10:22 Patient Disposition: Home, Self-Care Discharge Diagnosis: acute diverticulitis celiac disease irritable bowel syndrome alcohol use disorder low magnesium Referrals: Mark Lebron [Physician] - 2 Weeks Ollie Pulliam PA-C [Primary Care Provider] - 1 Week (call office to schedule follow up appointment with pcp) Discharge Medications: New magnesium oxide 400 mg (241.3 mg magnesium) Tablet 400 mg PO BIDPC Qty: 60 0RF dicyclomine 10 mg Capsule 10 mg PO TIDAC PRN (Reason: abdominal pain) Qty: 90 0RF oxycodone 5 mg Tablet 5 mg PO Q6H PRN (Reason: severe pain (scale score 7-10)) Qty: 12 0RF Rx Instructions: Partial Fill upon patient request. Continued sertraline 25 mg tablet 50 mg PO DAILY Qty: 90 1RF thiamine mononitrate (vit B1) 100 mg tablet 100 mg PO DAILY Qty: 30 0RF melatonin 5 mg Tablet 5 mg PO BEDTIME PRN (Reason: Sleep) cholecalciferol (vitamin D3) 25 mcg (1,000 unit) Tablet 25 mcg PO DAILY folic acid 1 mg tablet 1 mg PO DAILY Qty: 30 0RF vitamin B complex [B Complex-Vitamin B12] Tablet 1 tab PO DAILY Qty: 30 0RF ondansetron 4 mg tablet,disintegrating 4 mg PO Q8H PRN (Reason: Nausea) hyoscyamine sulfate 0.125 mg tablet, sublingual 0.125 mg PO Q4H PRN (Reason: cramps) Held naltrexone 50 mg tablet 50 mg PO DAILY Hold Instructions: Resume on 12/13/21. resume when no longer using oxycodone for pain control Discontinued metronidazole 500 mg tablet 500 mg PO Q8H 7 Days Qty: 21 0RF Discharge Orders: Discharge Order (Routine); Ordered 11/29/21 Ordered By: Mouna Avendano Diet: Advance to usual diet Activity on Discharge: As tolerated Stand Alone Forms: Patient Portal Discharge page Care Plan Goals: GI health sobriety Health Concerns: acute diverticulitis celiac disease irritable bowel syndrome alcohol use disorder low magnesium Plan of Treatment: completed antibiotics avoid gluten take dicyclomine as needed use acetaminophen for mild-moderate pain. use oxycodone for severe pain only. do NOT take naltrexone while using oxycodone. resume naltrexone after no longer using oxycodone. avoid alcohol take magnesium as prescribed follow up with Sharita Lebron and/or Brianne at [facility] in 2 weeks Please follow up with your primary care doctor within 1 week. Return to the hospital if you experience recurrent or worsening symptoms. Assessment: As above. Patient Instructions: Celiac Disease (DC)
[2021-11-29] MEDS: oxyCODONE HCl Immed Release 5 MG TABLET PO (13:17)
[2021-11-29] MEDS: Dicyclomine HCl 10 MG CAPSULE PO (13:17)
[2021-11-29 15:32] VITALS: BP 115/74; PULSE 71; RESP 16; TEMP 36.3; O2SAT 98
--- NOTE | 2021-11-29 16:15 | MHC.CM.PN ---
PATIENT TELL RN THAT SHE CANNOT DC TODAY AND HER MOTHER IS NOT HOME UNTIL TONIGHT AND PATIENT HAS NO [place] TO THE HOME. T/W MET WITH PATIENT WHO STATES THAT HER MOTHER WILL NOT BE HOME UNTIL MONDAY AND SHE HAS NO [place] TO GET IN. T/W REMINDED PATIENT THAT SHE HAS BEEN READY FOR DC AND TODAY IS THE DAY OPTION OF REMAINING UNTIL 1800 WILL GIVE PATIENT SUFFICIENT TIME TO MAKE ARRANGEMENTS WAS DISCUSSED. PATIENT AGREES. RN AWARE
== END 2021-11-29 17:30 | disposition home or self-care (01) | DRG 254 ==
LOC: HO.ED 11-13 03:32 → HO.EDOVER 11-13 04:16 → HO.S3 11-13 19:00
PROVIDERS: Emergency Medicine; Hospitalist; Internal Medicine; Internal Medicine Gastroenterology; Nurse Practitioner Acute Care; Physician Assistant Medical; Admitting Provider Student in an Organized Health Care Education/Training Program; Emergency Provider Emergency Medicine; PCP Physician Assistant; Visit Provider Family Medicine
DX: K90.0 Celiac disease (principal); K52.1 Toxic gastroenteritis and colitis; I95.9 Hypotension, unspecified; K57.32 Diverticulitis of large intestine without perforation or abscess without bleeding; Z56.0 Unemployment, unspecified; F10.20 Alcohol dependence, uncomplicated; E83.42 Hypomagnesemia; E87.6 Hypokalemia; F32.A Depression, unspecified; K56.7 Ileus, unspecified; T36.95XA Adverse effect of unspecified systemic antibiotic, initial encounter; F41.1 Generalized anxiety disorder; Z87.891 Personal history of nicotine dependence; Z88.0 Allergy status to penicillin; Z88.1 Allergy status to other antibiotic agents; Z88.2 Allergy status to sulfonamides; Z79.899 Other long term (current) drug therapy
CPT/HCPCS: 36415; 74176; 80048; 80053; 81001; 82040; 82248; 82784; 82803; 83605; 83690; 83735; 84443; 84484; 85025; 85027; 86140; 86364; 87040; 87086; 87493; 87507; 89055; 93005; 99284; J1170; J1650; J1956; J2270; J2405; J2543; J3475

== ENCOUNTER 2021-12-08 11:24 | Outpatient (REF) | payer OTHER, SELFPAY ==
--- NOTE | ~2021-12-08 | XR_ITS ---
EXAMINATION: XR KNEE AP STANDING CLINICAL INFORMATION: Pain. COMPARISON: MR right knee 07/08/2017. TECHNIQUE: AP bilateral standing view of the knees was obtained. FINDINGS: Bones and soft tissues are normal. No fracture or joint effusion. Alignment is anatomic. Joint spaces are well maintained. No abnormal soft tissue calcification. XR/XR knee standing BI IMPRESSION: Normal knees.
[2021-12-08 12:41] LABS: Hematocrit 38.3 % (37.0-47.0); Hemoglobin 12.5 g/dl (12.0-16.0); Mean Corpuscular HGB Conc 32.6 g/dl (31.0-35.0); Mean Corpuscular Hemoglobin 29.9 pg (27.0-33.0); Mean Corpuscular Volume 91.6 fL (80.0-98.0); Mean Platelet Volume 11.2 fL (9.4-12.3); Platelet Count 440 X10*3/uL (160-400); Red Blood Count 4.18 X10*6/uL (4.20-5.50); White Blood Count 6.9 X10*3/uL (4.8-10.8)
[2021-12-08 13:08] LABS: Alanine Aminotransferase 46 U/L (0-31); Albumin Level 3.7 g/dL (3.5-5.0); Alkaline Phosphatase 124 U/L (39-117); Anion Gap 18 (12-20); Aspartate Amino Transferase 85 U/L (5-31); Bilirubin Direct 0.3 mg/dL (0.0-0.5); Bilirubin Total 0.5 mg/dL (0.0-1.0); Blood Urea Nitrogen 6 mg/dL (9-16); Calcium 9.3 mg/dL (8.4-10.2); Carbon Dioxide 21 mmol/L (22-29); Chloride 104 mmol/L (96-108); Estimated Glomerular Filt Rate > 60; Glucose Random 109 mg/dL (60-115); Magnesium 1.7 mg/dL (1.6-2.6); Potassium 5.3 mmol/L (3.3-5.1); Sodium 138 mmol/L (135-145); Total Protein 7.2 g/dL (6.5-8.0)
== END 2021-12-08 11:25 | disposition home or self-care (01) ==
LOC: HO.XRAY 11:24
PROVIDERS: PCP Physician Assistant; Visit Provider Physician Assistant
DX: R10.2 Pelvic and perineal pain (principal); K90.0 Celiac disease; K52.9 Noninfective gastroenteritis and colitis, unspecified
CPT/HCPCS: 36415; 73565; 80048; 80076; 83735; 85027

== ENCOUNTER 2022-01-05 10:16 | Outpatient (REF) | payer OTHER, SELFPAY ==
[2022-01-05 11:42] LABS: Alanine Aminotransferase 38 U/L (0-31); Albumin Level 3.9 g/dL (3.5-5.0); Alkaline Phosphatase 138 U/L (39-117); Anion Gap 16 (12-20); Aspartate Amino Transferase 71 U/L (5-31); Bilirubin Direct 0.4 mg/dL (0.0-0.5); Bilirubin Total 0.6 mg/dL (0.0-1.0); Blood Urea Nitrogen 4 mg/dL (9-16); Calcium 9.5 mg/dL (8.4-10.2); Carbon Dioxide 25 mmol/L (22-29); Chloride 105 mmol/L (96-108); Estimated Glomerular Filt Rate > 60; Glucose Random 96 mg/dL (60-115); Magnesium 1.7 mg/dL (1.6-2.6); Potassium 4.9 mmol/L (3.3-5.1); Sodium 141 mmol/L (135-145)
== END 2022-01-05 10:17 | disposition home or self-care (01) ==
LOC: HO.LAB 10:16
PROVIDERS: PCP Physician Assistant; Visit Provider Physician Assistant
DX: R10.32 Left lower quadrant pain (principal); F10.20 Alcohol dependence, uncomplicated
CPT/HCPCS: 36415; 80048; 80076; 83735

== ENCOUNTER 2022-01-12 16:56 | Emergency (ER) | payer OTHER, SELFPAY ==
--- NOTE | ~2022-01-12 | US_ITS ---
EXAMINATION: US VENOUS WITH DOPPLER UPPER EXTREMITY, RIGHT CLINICAL INFORMATION: Pain COMPARISON: None TECHNIQUE: Ultrasound of the upper extremity is performed using compression sonography and color and pulse Doppler flow with assessment of augmentation of flow. There is also imaging and Doppler assessment of the jugular and subclavian veins. Spectral analysis with color-flow imaging is performed. FINDINGS: Respiratory variation, normal compression, and augmented flow are noted throughout the upper extremity including the axillary, brachial, cubital, and radial and ulnar veins. There is normal flow in the internal jugular and subclavian veins. There is no visible deep or superficial thrombophlebitis. Incidental finding was made of thrombosed superficial veins suggesting thrombophlebitis. If the patient's symptoms progress, a followup ultrasound in 5 -7 days might be of value to exclude proximal propagation from a nonvisualized distal arm vein. US/US venous duplex UE RT IMPRESSION: 1. No DVT demonstrated in the right upper extremity. 2. Incidental finding was made of thrombosed superficial veins suggesting thrombophlebitis.
[2022-01-12 17:10] VITALS: BP 124/65; PULSE 86; RESP 20; TEMP 36.6; O2SAT 98; BMI 20.2
[2022-01-12 17:22] VITALS: BP 106/58; PULSE 74; TEMP 36.8; O2SAT 99
--- NOTE | 2022-01-12 17:30 | ED.SKABFB ---
HPI - Skin/Abscess/Foreign Bdy General Chief complaint: Skin/Abscess/Foreign Body Stated complaint: DVT Time Seen by Provider: 01/12/22 17:20 Source: patient Mode of arrival: ambulatory History of Present Illness HPI narrative: 41-year-old female with a past medical history of ETOH abuse, anxiety, major depressive disorder, diverticulitis, recent hospitalization for pelvic abscess treated with IR drainage at [facility] discharged beginning of this month, presenting to the ED complaining of continued right arm pain and swelling at prior IV site. States feels a lump under the skin and worsening pain with arm extension. Was recommended to come to the ED by PCP. Reports continued residual abdominal/pelvic pain which is improving. Saw GI today will be getting colonoscopy outpatient. Denies fever, chills, SOB/CP MD complaint: other Onset (ago): week(s) Related Data Home Medications Medication Instructions Recorded Confirmed melatonin 5 mg tablet 5 mg PO BEDTIME PRN Sleep 07/29/21 01/05/22 cholecalciferol (vitamin D3) 25 25 mcg PO DAILY 09/11/21 01/05/22 mcg (1,000 unit) tablet ondansetron 4 mg disintegrating 4 mg PO Q8H PRN Nausea 11/10/21 01/05/22 tablet cholecalciferol (vitamin D3) 1,250 0 mcg PO 01/05/22 01/05/22 mcg (50,000 unit) capsule Previous Rx's Medication Instructions Recorded sertraline 25 mg tablet 50 mg PO DAILY #90 tabs 11/04/21 thiamine mononitrate (vit B1) 100 100 mg PO DAILY #30 tabs 11/04/21 mg tablet folic acid 1 mg tablet 1 mg PO DAILY #30 tabs 11/10/21 vitamin B complex (B 1 tab PO DAILY #30 tabs 11/10/21 Complex-Vitamin B12 tablet) dicyclomine 10 mg capsule 10 mg PO TIDAC PRN abdominal pain 11/29/21 #90 caps magnesium oxide 400 mg (241.3 mg 400 mg PO BIDPC #60 tabs 11/29/21 magnesium) tablet acetaminophen 650 mg 650 mg PO Q12H 30 days #60 tabs 12/08/21 tablet,extended release (Tylenol Arthritis Pain) hydroxyzine HCl 25 mg tablet 25 mg PO BEDTIME 30 days #30 tabs 12/08/21 omeprazole 20 mg capsule,delayed 20 mg PO DAILY 30 days #30 caps 12/08/21 release naltrexone 50 mg tablet 50 mg PO DAILY 30 days #30 tabs 01/05/22 tramadol 50 mg tablet 50 mg PO DAILY 7 days #7 tabs 01/10/22 Allergies Allergy/AdvReac Type Severity Reaction Status Date / Time amoxicillin [From Augmentin] Allergy Intermediate Abdominal Verified 01/05/22 09:26 Pain clavulanic acid Allergy Intermediate Abdominal Verified 01/05/22 09:26 [From Augmentin] Pain Sulfa (Sulfonamide Allergy Mild RASH Verified 01/05/22 09:26 Antibiotics) [SULFA (SULFONAMIDE ANTIBIOTICS)] magnesium AdvReac Diarrhea Verified 01/05/22 09:26 Review of Systems Review of Systems: Constitutional: No Fever, No Chills ENT/Mouth: No Ear Pain, No Nasal Congestion, No sore throat, No Rhinorrhea, No Swallowing Difficulty Cardiovascular: No Chest Pain, No SOB Respiratory: No Cough, No Sputum, No Wheezing Gastrointestinal: No Nausea, No Vomiting, No Diarrhea, No Constipation, + Abdominal pain (improving) Genitourinary: No Dysuria, No Urinary Frequency, No Hematuria, No Urgency, No Flank Pain Musculoskeletal: No joint pain, No Myalgias, No Joint Swelling Skin: + Skin Lesions, No rash Neuro: No Weakness, No Numbness, No Paresthesias Yes all other systems are reviewed and are negative Constitutional: Constitutional: Reports as per [facility] Past Medical History Attestation statement: The following information was validated with the patient. Medical History Alcohol abuse Anxiety Diverticulitis Pelvic abscess in female Surgical History No pertinent past surgical history Family History Family History Father Medical history unknown Mother Medical history unknown Paternal Grandfather Cancer Sister Epilepsy Daughter In good health Son In good health Social History Social History Household Members: None Housing: Apartment Do you presently have visiting nurse or other home services: No Alcohol intake: current Alcohol intake frequency: 3 or more drinks per day Alcohol type: hard liquor Patient Tobacco Use Status: Former Tobacco user Tobacco use type: Cigarette e-Cigarette/Vaping Use: Former Use Second Hand Smoke Exposure: No Advance Directives: Yes Advance Directives on File: Yes Advance Directives Date on File: 01/25/21 service: No Current occupational status: unemployed Cognitive needs: No Hearing needs: No Vision needs: No Physical Exam Vital Signs: Vital Signs: Last Vital Signs Temp 98.2 F 01/12/22 17:22 Pulse 74 01/12/22 17:22 Resp 20 01/12/22 17:10 BP 106/58 L 01/12/22 17:22 Pulse Ox 99 01/12/22 17:22 O2 Del Method 01/12/22 17:22 BMI result Body Mass Index 20.2 Const: General: cooperative, healthy appearing and no acute distress Orientation/consciousness: patient oriented x3 Limitations: no limitations HEENT: Head: Yes normal to inspection and Yes atraumatic Ears: hearing grossly normal bilaterally General nose exam: Normal external nose present Face and sinus: Yes normal facial exam Eyes: General: appearance normal, both eyes and all related structures EOM: EOMs intact bilaterally Neck: Neck: Yes normal visual inspection and Yes no meningeal signs Resp: Effort & Inspection: normal respiratory effort and no respiratory distress Cardio: Rate: regular rate Heart sounds: S1 normal heart sound present and S2 normal heart sound present Peripheral pulses: Peripheral pulses 2+ throughout GI: Inspection: Yes normal to inspection and No distended Palpation (GI): Tenderness to palpation present (GI) (Improving per patient) in the LLQ and in the RLQ; with no rebound tenderness Skin: Other: + mild swelling noted to right distal volar forearm with tenderness to palpation. Neurovascularly intact. Full range of motion intact upper extremity. No fluctuance/induration Wounds: no wounds Neuro: General: patient oriented x3, gait normal, tone normal and no meningeal signs Gait exam (Neuro): Normal gait present Extrem: General: Yes normal to inspection, Yes no pedal edema and Yes no calf tenderness Course Course Course Narrative: US venous duplex UE RT IMPRESSION: 1.? No DVT demonstrated in the right upper extremity. 2.? Incidental finding was made of thrombosed superficial veins suggesting thrombophlebitis. Results discussed with patient including worrisome signs and symptoms and strict return precautions, and when to return to the emergency department. They verbalized understanding and feel safe for discharge at this time. MDM - Skin/Abscess/Foreign Bdy MDM Narrative Medical decision making narrative: 41-year-old female with a past medical history of ETOH abuse, anxiety, major depressive disorder, diverticulitis, recent hospitalization for pelvic abscess treated with IR drainage at [facility] discharged beginning of this month, presenting to the ED complaining of continued right arm pain and swelling at prior IV site. On exam vital signs stable, NAD, nontoxic appearing, physical exam as above. Concern for upper extremity DVT vs superficial thrombophlebitis vs remnants of infiltrated IV. Low suspicion for DVT, PE, or worsening intra-abdominal infection. No evidence of cellulitis or abscess Plan: Upper extremity venous duplex ultrasound Differential Diagnosis Differential diagnosis: Likely abscess of skin or subcutaneous tissue Medical Records Attestation: I reviewed the patient's medical records. Lab Data Attestation: I reviewed the patient's lab results. Discharge Plan Discharge Clinical Impression: Superficial thrombophlebitis Patient Disposition: Home, Self-Care Prescriptions: No Action sertraline 25 mg tablet 50 mg PO DAILY Qty: 90 1RF thiamine mononitrate (vit B1) 100 mg tablet 100 mg PO DAILY Qty: 30 0RF tramadol 50 mg tablet 50 mg PO DAILY 7 Days Qty: 7 0RF melatonin 5 mg Tablet 5 mg PO BEDTIME PRN (Reason: Sleep) cholecalciferol (vitamin D3) 25 mcg (1,000 unit) Tablet 25 mcg PO DAILY folic acid 1 mg tablet 1 mg PO DAILY Qty: 30 0RF vitamin B complex [B Complex-Vitamin B12] Tablet 1 tab PO DAILY Qty: 30 0RF magnesium oxide 400 mg (241.3 mg magnesium) Tablet 400 mg PO BIDPC Qty: 60 0RF dicyclomine 10 mg Capsule 10 mg PO TIDAC PRN (Reason: abdominal pain) Qty: 90 0RF ondansetron 4 mg tablet,disintegrating 4 mg PO Q8H PRN (Reason: Nausea) omeprazole 20 mg capsule,delayed release(DR/EC) 20 mg PO DAILY 30 Days Qty: 30 3RF hydroxyzine HCl 25 mg tablet 25 mg PO BEDTIME 30 Days Qty: 30 3RF acetaminophen [Tylenol Arthritis Pain] 650 mg tablet extended release 650 mg PO Q12H 30 Days Qty: 60 3RF cholecalciferol (vitamin D3) 1,250 mcg (50,000 unit) capsule 0 mcg PO naltrexone 50 mg tablet 50 mg PO DAILY 30 Days Qty: 30 3RF Referrals: Ollie Pulliam PA-C [Primary Care Provider] - 5 days
== END 2022-01-12 19:54 | disposition home or self-care (01) ==
PROVIDERS: Emergency Provider Emergency Medicine; PCP Physician Assistant
DX: I80.8 Phlebitis and thrombophlebitis of other sites (principal); F33.1 Major depressive disorder, recurrent, moderate; R60.0 Localized edema; Z79.899 Other long term (current) drug therapy
CPT/HCPCS: 93971; 99282; 99284

== ENCOUNTER 2022-01-26 11:31 | Outpatient (REF) | payer OTHER, SELFPAY ==
[2022-01-27 09:11] LABS: NG PCR INVALID (Not Detect.)
[2022-01-27 09:18] LABS: CT PCR INVALID (Not Detect.)
[2022-01-27 09:34] LABS: BV Int Neg Control Negative (Negative); BV Int Pos Control Positive (Positive)
== END 2022-01-26 11:32 | disposition home or self-care (01) ==
LOC: HO.LNP 11:31
PROVIDERS: Visit Provider Advanced Practice Midwife
DX: R10.32 Left lower quadrant pain (principal); N73.9 Female pelvic inflammatory disease, unspecified; K90.0 Celiac disease; Z79.899 Other long term (current) drug therapy
CPT/HCPCS: 87480; 87491; 87510; 87591; 87660; 99202

== ENCOUNTER 2022-02-23 11:37 | Day surgery (SDC) | payer OTHER, SELFPAY ==
--- NOTE | 2022-02-22 13:56 | HO.ANESPROP2 ---
Documented by User: Stephanie Willis NP 02/22/22 14:02 HPI - Anesthesia Eval Consult details Narrative: 41yo F for Upper Endoscopy and Colonoscopy PMF Active Problems Active Problems: All Active Problems (Updated 01/26/22 @ 12:38 by Khushi Nelson CNM) Pelvic abscess in female (Acute) Diverticulitis (Acute) Thrombophlebitis of right upper extremity (Acute) Right ovarian cyst (Acute) LLQ abdominal pain (Acute) Osteoarthritis, knee (Acute) Pelvic pain in female (Acute) Insomnia (Acute) GERD (gastroesophageal reflux disease) (Acute) Low magnesium level (Acute) IBS (irritable bowel syndrome) (Acute) Celiac disease (Acute) Alcohol use disorder, moderate, dependence (Acute) Diarrhea (Acute) Depression (Acute) SENA (generalized anxiety disorder) (Acute) Alcohol withdrawal (Acute) Acute hypokalemia (Acute) Acute hyponatremia (Acute) Alcohol use disorder, severe, dependence (Acute) Diverticulitis (Acute) Transaminitis (Acute) COVID-19 (Acute) Alcohol withdrawal (Acute) Colitis (Acute) Past Medical History Medical History Alcohol abuse Anxiety Diverticulitis Pelvic abscess in female Pelvic abscess in female Family History Family History Father Medical history unknown Mother Medical history unknown Paternal Grandfather Cancer Sister Epilepsy Daughter In good health Son In good health Surgical History Surgical History No pertinent past surgical history Social History Social History Household Members: None Housing: Apartment Do you presently have visiting nurse or other home services: No Alcohol intake: current Alcohol intake frequency: former alcohol drinker Alcohol type: hard liquor Patient Tobacco Use Status: Former Tobacco user Quit Date: 2006 Tobacco use type: Cigarette e-Cigarette/Vaping Use: Former Use Second Hand Smoke Exposure: No Use of substances other than those prescribed or required for medical reasons: No Are you DNR?: No Advance Directives: No Advance Directives Information Provided: Yes Advance Directives Date on File: 01/25/21 service: No Current occupational status: unemployed Cognitive needs: No Hearing needs: No Vision needs: No Meds Allergies Allergy/AdvReac Type Severity Reaction Status Date / Time amoxicillin [From Augmentin] Allergy Intermediate Abdominal Verified 01/26/22 10:54 Pain clavulanic acid Allergy Intermediate Abdominal Verified 01/26/22 10:54 [From Augmentin] Pain Sulfa (Sulfonamide Allergy Mild RASH Verified 01/26/22 10:54 Antibiotics) [SULFA (SULFONAMIDE ANTIBIOTICS)] magnesium AdvReac Diarrhea Verified 01/26/22 10:54 Home Medications Medication Instructions Recorded Confirmed Last Taken Type melatonin 5 mg tablet 5 mg PO BEDTIME PRN Sleep 07/29/21 01/26/22 1 Month Ago History ~08/12/21 cholecalciferol (vitamin D3) 25 25 mcg PO DAILY 09/11/21 01/26/22 1 Month Ago History mcg (1,000 unit) tablet ~08/12/21 ondansetron 4 mg disintegrating 4 mg PO Q8H PRN Nausea 11/10/21 01/26/22 Unknown History tablet cholecalciferol (vitamin D3) 1,250 0 mcg PO 01/05/22 01/26/22 Unknown History mcg (50,000 unit) capsule Exam Exam Date and Time: February 22, 2022 1356 Pertinent Lab Results Pertinent Lab Results: Laboratory Tests 12/08/21 01/05/22 11:36 10:32 WBC 6.9 Hgb 12.5 Hct 38.3 Plt Count 440 H D Sodium 141 Potassium 4.9 Chloride 105 Carbon Dioxide 25 BUN 4 L Creatinine 0.52 Narrative Narrative: EKG 11/2021 Vent. Rate : 068 BPM ? ? Atrial Rate : 068 BPM ?? P-R Int : 098 ms? QRS Dur : 074 ms ? ? QT Int : 420 ms ? ? ? P-R-T Axes : 030 091 052 degrees ?? QTc Int : 446 ms ? Sinus rhythm with short WI Rightward axis Borderline ECG When compared with ECG of 29-JUL-2021 11:30, Vent. rate has decreased BY? 36 BPM Assessment and Plan Assessment Anesthesia Assessment: Chart Reviewed Documented by User: Katharina Little MD 02/23/22 14:10 [facility] Past Medical History Medical History Alcohol abuse Anxiety Diverticulitis Pelvic abscess in female Pelvic abscess in female Family History Family History Father Medical history unknown Mother Medical history unknown Paternal Grandfather Cancer Sister Epilepsy Daughter In good health Son In good health Family history of problems with anesthesia: No Surgical History Surgical History No pertinent past surgical history History of Problems with Anesthesia: No Social History Social History Household Members: None Housing: Apartment Do you presently have visiting nurse or other home services: No Alcohol intake: current Alcohol intake frequency: former alcohol drinker Alcohol type: hard liquor Patient Tobacco Use Status: Former Tobacco user Quit Date: 2006 Tobacco use type: Cigarette e-Cigarette/Vaping Use: Former Use Second Hand Smoke Exposure: No Use of substances other than those prescribed or required for medical reasons: No Are you DNR?: No Advance Directives: No Advance Directives Information Provided: Yes Advance Directives Date on File: 01/25/21 service: No Current occupational status: unemployed Cognitive needs: No Hearing needs: No Vision needs: No Meds Allergies Allergy/AdvReac Type Severity Reaction Status Date / Time amoxicillin [From Augmentin] Allergy Intermediate Abdominal Verified 01/26/22 10:54 Pain clavulanic acid Allergy Intermediate Abdominal Verified 01/26/22 10:54 [From Augmentin] Pain Sulfa (Sulfonamide Allergy Mild RASH Verified 01/26/22 10:54 Antibiotics) [SULFA (SULFONAMIDE ANTIBIOTICS)] magnesium AdvReac Diarrhea Verified 01/26/22 10:54 Home Medications Medication Instructions Recorded Confirmed Last Taken Type melatonin 5 mg tablet 5 mg PO BEDTIME PRN Sleep 07/29/21 01/26/22 1 Month Ago History ~08/12/21 cholecalciferol (vitamin D3) 25 25 mcg PO DAILY 09/11/21 01/26/22 1 Month Ago History mcg (1,000 unit) tablet ~08/12/21 ondansetron 4 mg disintegrating 4 mg PO Q8H PRN Nausea 11/10/21 01/26/22 Unknown History tablet cholecalciferol (vitamin D3) 1,250 0 mcg PO 01/05/22 01/26/22 Unknown History mcg (50,000 unit) capsule Exam Height,Weight and Vital Signs: Height 5 ft 3 in Weight 51.71 kg Vital Signs Temp Pulse Resp BP Pulse Ox O2 Del Method 97.6 F 90 16 109/73 100 02/23/22 12:00 02/23/22 12:00 02/23/22 12:00 02/23/22 12:00 02/23/22 12:00 02/23/22 12:00 Pertinent Lab Results Pertinent Lab Results: Laboratory Tests 12/08/21 01/05/22 11:36 10:32 WBC 6.9 Hgb 12.5 Hct 38.3 Plt Count 440 H D Sodium 141 Potassium 4.9 Chloride 105 Carbon Dioxide 25 BUN 4 L Creatinine 0.52 Lab Results 02/23/22 Range/Units 11:40 Urine Test NEGATIVE (NEGATIVE) Airway Mallampati Class: II TM Dist: >3cm Neck ROM: Full Loose/Missing/Broken Teeth: No (Cap top right back. Denies broken, loose, missing teeth) Heart: RRR Lungs: CTAB Assessment and Plan Assessment Anesthesia Assessment: Anesthesia Plan Discussed Final Anesthetic Review Family History of Problems with Anesthesia: No History of Problems with Anesthesia: No NPO: Yes ASA Class: II Final Preanesthetic Review: No Changes in Pt Med Stat, Meds/Allgs Chart Reviewed, Consent Obtained/Reviewed and Anes Risks/Benef Reviewed Patient Risk: Intermediate Procedure Risk: Low Assessment/Block/Sedation in SS: Assess/Block/Sedation-SS Anesthetic Plan Anesthetic Plan: MAC: Disposition: Standard PACU
[2022-02-23 12:00] VITALS: BP 109/73; PULSE 90; RESP 16; TEMP 36.4; O2SAT 100; BMI 20.2
[2022-02-23 12:00] LABS: UPreg QC Valid YES; Urine Pregnancy NEGATIVE (NEGATIVE)
[2022-02-23] MEDS: Lactated Ringers 1,000 ML 100 ML IVCONT (12:31)
--- NOTE | 2022-02-23 13:03 | MHC.SHP ---
Pre-Procedural Eval Section A Date of Service: 02/23/22 Section B Chief Complaint: Diverticulitis of large intestine,celian disease,d Details of Present Illness: see H&P no changes Relevant Family History (Specify if Yes): No Relevant Social History: Alcohol Use Present Medications: see Short Stay Collaborative assessment Medical History: No relevant PMH History of Previous Operations: No relevant previous surgery Allergies: Allergies Allergy/AdvReac Type Severity Reaction Status Date / Time amoxicillin [From Augmentin] Allergy Intermediate Abdominal Verified 01/26/22 10:54 Pain clavulanic acid Allergy Intermediate Abdominal Verified 01/26/22 10:54 [From Augmentin] Pain Sulfa (Sulfonamide Allergy Mild RASH Verified 01/26/22 10:54 Antibiotics) [SULFA (SULFONAMIDE ANTIBIOTICS)] magnesium AdvReac Diarrhea Verified 01/26/22 10:54 Review of Systems Sugical H&P ROS: Negative: Constitution, Cardiovascular, Respiratory, Neurological, Psychiatric, Hem-Onc, Allergic/Immunologic, Gastrointestinal, Genitourinary, Musculoskeletal, Integumentary, Endocrine and Eyes/Ears/Nose/Throat Exam Surgical H&P Exam: Normal: HEENT, Normal: Heart, Normal: Lungs, Normal: Extremities, Normal: Abdomen, Normal: Skin and Normal: Neurological Plan Diagnosis/Plan: Unchanged I have reviewed the history and physical and performed a pertinent physical examination on my patient. No changes have occurred unless specified. Time Spent With Patient Time: Total time managing care of this patient today ____ minutes.
--- NOTE | 2022-02-23 13:57 | P.BOP_ITS ---
Brief Operative Note Date of Service: 02/23/22 Pre-op diagnosis: dysphagia, celiac disease, diverticulitis Post-op diagnosis: same Procedure: EGD,colonoscopy Surgeon: Mark Lebron Anesthesia: MAC Was an Webbing Tacker used for this Procedure?: No Estimated blood loss (mL): 2 Pathology: other Condition: stable Disposition: PACU
[2022-02-23 14:00] VITALS: BP 93/59; PULSE 106; RESP 17; TEMP 36.4; O2SAT 100
[2022-02-23 14:23] VITALS: BP 108/75; PULSE 75; RESP 17; TEMP 36.4; O2SAT 100
--- NOTE | 2022-02-23 20:48 | OP_ITS ---
SURGEON: Mark Lebron MD INDICATIONS: Dysphagia, diverticulitis, and celiac disease. PREOPERATIVE DIAGNOSIS: POSTOPERATIVE DIAGNOSIS: PROCEDURE PERFORMED: Upper endoscopy with biopsy and balloon dilation. Colonoscopy to the terminal ileum. ESTIMATED BLOOD LOSS: COMPLICATIONS: ANESTHESIA: Monitored anesthesia care. ASSISTANTS: SPECIMENS: DESCRIPTION OF PROCEDURE: A history and physical was performed. The risks and benefits of the procedure were explained to the patient. Informed consent was obtained. The patient was placed in the left lateral decubitus position. The Olympus video gastroscope was introduced into the esophagus, stomach, and duodenum. Examination was performed. She was repositioned for colonoscopy. A digital rectal exam was performed and was found to be normal. The Olympus pediatric video colonoscope was introduced into the rectum and advanced to the cecum without difficulty. The cecum was identified by transillumination, palpation, and identification of ileocecal valve. Examination was performed. The scope was removed. She tolerated both procedures well. The patient was then returned to the recovery area in stable condition. The procedure was performed on 02/23/2021. FINDINGS: Upper endoscopy: 1. Esophagus: The esophagus showed a nonobstructive Schatzki ring. The scope easily passed through this. Balloon dilation of the ring to 18 mm for 60 seconds was performed with no immediate complications. The ring was widely patent. Following this, biopsies were obtained at the EG junction and from 25 cm in the esophagus. 2. Stomach: The stomach showed a single 6 mm polyp on the posterior wall in the midbody. This was biopsied. Antral biopsies were also obtained. 3. Duodenum: The bulb and second portion showed changes consistent with celiac disease with scalloping of the folds. Biopsies were obtained from the second portion. Colonoscopy: The terminal ileum was examined and appeared normal. The visualized colonic mucosa was normal. There was no colitis. There was mild sigmoid diverticulosis with scattered diverticula throughout the remainder of the colon. Retroflexed examination showed some small internal hemorrhoids. IMPRESSION: 1. Schatzki ring. 2. Gastric polyp. 3. Diverticulosis. RECOMMENDATION: 1. Follow up the biopsy results. 2. Repeat colonoscopy is recommended in 10 years for average-risk individuals. MD ALFREDA Stone/JOSE G / [id number]
== END 2022-02-23 14:54 | disposition home or self-care (01) ==
PROVIDERS: Nurse Practitioner; PCP Physician Assistant; Visit Provider Internal Medicine Gastroenterology
PROC: (CPT 45378; principal; 2022-02-23 13:00)
DX: K90.0 Celiac disease (principal); K57.30 Diverticulosis of large intestine without perforation or abscess without bleeding; K64.8 Other hemorrhoids; Z87.19 Personal history of other diseases of the digestive system; R13.10 Dysphagia, unspecified; K22.2 Esophageal obstruction; K31.7 Polyp of stomach and duodenum; F10.10 Alcohol abuse, uncomplicated; Z88.1 Allergy status to other antibiotic agents; Z88.2 Allergy status to sulfonamides; Z88.8 Allergy status to other drugs, medicaments and biological substances; Z79.899 Other long term (current) drug therapy
CPT/HCPCS: 45378; 43249; 43239; 81025; 88305; 88342; C1726

== ENCOUNTER 2022-03-01 18:43 | Emergency (ER) | payer OTHER, SELFPAY ==
--- NOTE | ~2022-03-01 | CT_ITS ---
EXAMINATION: CT ABDOMEN AND PELVIS WITH CONTRAST CLINICAL INFORMATION: Left lower quadrant pain. History of diverticulitis and pelvic abscess COMPARISON: CT abdomen and pelvis 11/20/2021 TECHNIQUE: Multidetector volumetric images were obtained from the superior aspect of the liver through the pubic symphysis following administration 85 mL of Omnipaque 350 intravenous contrast. Sagittal and coronal reformatted images were obtained on the technologist's workstation. Oral contrast: None This CT examination was performed using dose optimization techniques as appropriate, variously including the following: *Automated exposure control *Adjustment of mA and/or kV according to patient size (this includes techniques or standardized protocols for targeted exams where dose is matched to indication/reason for exam; i.e. extremities or head) *Use of iterative reconstruction technique DLP: 366 mGy-cm FINDINGS: LUNG BASES: The visualized lung bases are unremarkable. LIVER, GALLBLADDER, AND BILIARY TREE: The liver is normal in size, shape, and attenuation. No focal hepatic lesion or biliary ductal dilatation is present. The gallbladder is unremarkable with no evidence of radiopaque gallstones, gallbladder wall thickening, or obvious pericholecystic inflammatory changes. PANCREAS: Unremarkable. SPLEEN: Unremarkable. ADRENAL GLANDS: Unremarkable. KIDNEYS AND URETERS: Symmetric nephrograms. No renal calculi or hydronephrosis. 1.4 cm exophytic left mid pole renal lesion with attenuation values of 40 Hounsfield units, unchanged, likely a hyperdense cyst.. No further follow-up recommended. No new renal lesions. No perinephric stranding or collection. BLADDER: Unremarkable. GASTROINTESTINAL TRACT: Colonic diverticulosis. Mild mural thickening versus incomplete distention of the sigmoid colon. No significant pericolonic inflammatory change to suggest acute diverticulitis. No dilated bowel loops. No bowel wall thickening. Normal appendix. No free air or ascites. ABDOMINAL WALL: Small fat-containing umbilical hernia. LYMPH NODES: No lymphadenopathy. VASCULAR: Normal caliber abdominal aorta. Retroaortic left renal vein. PELVIC VISCERA: Grossly normal CT appearance of the uterus. 10. Trace free pelvic fluid. Couple small follicles in the right ovary. There are 3 cysts in the left ovary, largest approximately 2.8 cm in size. OSSEOUS STRUCTURES: Unremarkable. CT/CT abdomen pelvis w IV con IMPRESSION: 1. Colonic diverticulosis. Mild mural thickening versus incomplete distention of the sigmoid colon. No appreciable pericolonic inflammatory change to suggest acute diverticulitis, though it would be difficult to exclude mild acute sigmoid diverticulitis versus changes of chronic diverticulitis. 2. 3 probable functional cysts in the left ovary, largest 2.8 cm in size.
[2022-03-01 18:45] VITALS: BP 115/78; PULSE 110; RESP 20; TEMP 36.6; O2SAT 95; BMI 20.3
--- NOTE | 2022-03-01 18:47 | ED_ITS ---
HPI - Abdominal Pain General Chief Complaint: Abdominal Pain <LIS Nielsen - Last Filed: 03/01/22 18:49> Stated Complaint: Abdominal pain <LIS Nielsen - Last Filed: 03/01/22 18:49> Time Seen by Provider: 03/01/22 18:59 <LIS Nielsen - Last Filed: 03/01/22 18:49> Source: patient <Cj Hernandez MD - Last Filed: 03/01/22 22:42> Mode of arrival: ambulatory <Cj Hernandez MD - Last Filed: 03/01/22 22:42> Limitations: no limitations <Cj Hernandez MD - Last Filed: 03/01/22 22:42> History of Present Illness HPI narrative: 41-year-old female who presents emergency department for evaluation of lower abdominal pain. Patient states that she has been having left lower abdominal pain since September of 2021. In December of 2021 she was admitted to [facility], found to have a pelvic abscess and transfer to [facility]. She states that the abscess was drained and since that time she has had intermittent pain. She points to her left lower quadrant and lower abdomen when asked to localize the pain. She describes the pain as a ?stabbing/ beeping since the abscess was drained. She states that she was receiving pain medications and was on oxycodone, she was then changed to tramadol and was tapered off by her provider. She has been off tramadol for approximately 1 week. She has been taking meloxicam with no improvement of her pain. She states that her pain is currently a stabbing pain, she points to her left lower quadrant, the pain is 10/10. She states that she is an alcoholic and had a s ignificant appeared sobriety but given her pain she drinks 6 shots of vodka today to try to get some relief. She denied fever, chills, rhinorrhea, cough, nausea, vomiting. She states this she has had several episodes of diarrhea today. She denied frequency, urgency or dysuria. She has not noticed any vaginal discharge. She denies dark bloody stools or black stools. Patient states that she had an endoscopy and colonoscopy done here at this facility. <Cj Hernandez MD - Last Filed: 03/01/22 22:42> Related Data Home Medications: Home Medications Medication Instructions Recorded Confirmed melatonin 5 mg tablet 5 mg PO BEDTIME PRN Sleep 07/29/21 01/26/22 cholecalciferol (vitamin D3) 25 25 mcg PO DAILY 09/11/21 01/26/22 mcg (1,000 unit) tablet ondansetron 4 mg disintegrating 4 mg PO Q8H PRN Nausea 11/10/21 01/26/22 tablet cholecalciferol (vitamin D3) 1,250 0 mcg PO 01/05/22 01/26/22 mcg (50,000 unit) capsule Previous Rx's Medication Instructions Recorded sertraline 25 mg tablet 50 mg PO DAILY #90 tabs 11/04/21 thiamine mononitrate (vit B1) 100 100 mg PO DAILY #30 tabs 11/04/21 mg tablet folic acid 1 mg tablet 1 mg PO DAILY #30 tabs 11/10/21 vitamin B complex (B 1 tab PO DAILY #30 tabs 11/10/21 Complex-Vitamin B12 tablet) magnesium oxide 400 mg (241.3 mg 400 mg PO BIDPC #60 tabs 11/29/21 magnesium) tablet acetaminophen 650 mg 650 mg PO Q12H 30 days #60 tabs 12/08/21 tablet,extended release (Tylenol Arthritis Pain) hydroxyzine HCl 25 mg tablet 25 mg PO BEDTIME 30 days #30 tabs 12/08/21 omeprazole 20 mg capsule,delayed 20 mg PO DAILY 30 days #30 caps 12/08/21 release tramadol 50 mg tablet 50 mg PO DAILY PRN pain 7 days #7 02/21/22 tabs meloxicam 15 mg tablet 15 mg PO DAILY PRN pain, moderate 02/26/22 15 days #15 tabs <LIS Nielsen - Last Filed: 03/01/22 18:49> Allergies/Adverse Reactions: Allergies Allergy/AdvReac Type Severity Reaction Status Date / Time amoxicillin [From Augmentin] Allergy Intermediate Abdominal Verified 01/26/22 10:54 Pain clavulanic acid Allergy Intermediate Abdominal Verified 01/26/22 10:54 [From Augmentin] Pain Sulfa (Sulfonamide Allergy Mild RASH Verified 01/26/22 10:54 Antibiotics) [SULFA (SULFONAMIDE ANTIBIOTICS)] magnesium AdvReac Diarrhea Verified 01/26/22 10:54 <LIS Nielsen - Last Filed: 03/01/22 18:49> Review of Systems Review of Systems Yes all other systems are reviewed and are negative <Cj Hernandze MD - Last Filed: 03/01/22 22:42> [facility] Past Medical History [facility] Narrative: Social history: She denies tobacco use. She does admit to drinking 6 shots of vodka today try to treat her pain. She states she is an alcoholic. She denies drug use. <Cj Hernandez MD - Last Filed: 03/01/22 22:42> Medical History: Medical History Alcohol abuse Anxiety Diverticulitis Pelvic abscess in female Pelvic abscess in female <LIS Nielsen - Last Filed: 03/01/22 18:49> Surgical History: Surgical History No pertinent past surgical history <LIS Nielsen - Last Filed: 03/01/22 18:49> Family History Family History: Family History Father Medical history unknown Mother Medical history unknown Paternal Grandfather Cancer Sister Epilepsy Daughter In good health Son In good health <LSI Nielsen - Last Filed: 03/01/22 18:49> Social History Social History: Social History Household Members: None Housing: Apartment Do you presently have visiting nurse or other home services: No Alcohol intake: current Alcohol intake frequency: former alcohol drinker Alcohol type: hard liquor Patient Tobacco Use Status: Former Tobacco user Quit Date: 2006 Tobacco use type: Cigarette Smoked in Last 30 Days: No e-Cigarette/Vaping Use: Former Use Second Hand Smoke Exposure: No Use of substances other than those prescribed or required for medical reasons: No Advance Directives: No Advance Directives Information Provided: No Advance Directives Date on File: 01/25/21 Patient : No service: No Current occupational status: unemployed Cognitive needs: No Hearing needs: No Vision needs: No <LIS Nielsen - Last Filed: 03/01/22 18:49> Physical Exam ED Vital Signs: Vital Signs - 24 hr 03/01/22 18:45 03/01/22 18:58 03/01/22 20:27 Temperature 97.8 F 97.9 F Pulse Rate 110 H 100 Respiratory Rate 20 20 18 Blood Pressure 115/78 105/68 Pulse Oximetry 95 97 Oxygen Delivery Method Room Air Room Air 03/01/22 21:02 Temperature 97.4 F Pulse Rate 95 Respiratory Rate 16 Blood Pressure 99/63 Pulse Oximetry 96 Oxygen Delivery Method Room Air BMI result Body Mass Index 20.3 <LIS Nielsen - Last Filed: 03/01/22 18:49> Vital Signs - 24 hr 03/01/22 18:45 03/01/22 18:58 03/01/22 20:27 Temperature 97.8 F 97.9 F Pulse Rate 110 H 100 Respiratory Rate 20 20 18 Blood Pressure 115/78 105/68 Pulse Oximetry 95 97 Oxygen Delivery Method Room Air Room Air 03/01/22 21:02 Temperature 97.4 F Pulse Rate 95 Respiratory Rate 16 Blood Pressure 99/63 Pulse Oximetry 96 Oxygen Delivery Method Room Air BMI result Body Mass Index 20.3 <Cj Hernandez MD - Last Filed: 03/01/22 22:42> Const General: cooperative and no acute distress <Cj Hernandez MD - Last Filed: 03/01/22 22:42> Orientation/consciousness: oriented to person and oriented to place <Cj Hernandez MD - Last Filed: 03/01/22 22:42> Limitations: no limitations <Cj Hernandez MD - Last Filed: 03/01/22 22:42> HENMT Head: Yes normal to inspection, Yes normocephalic and Yes atraumatic <Cj Hernandez MD - Last Filed: 03/01/22 22:42> Ears: external ears normal <Cj Hernandez MD - Last Filed: 03/01/22 22:42> General nose exam: Normal external nose present <Cj Hernandez MD - Last Filed: 03/01/22 22:42> Face and sinus: Yes normal facial exam <Cj Hernandez MD - Last Filed: 03/01/22 22:42> Mouth: Normal oral and palatal mucosa present <Cj Hernandez MD - Last Filed: 03/01/22 22:42> Throat: Yes posterior oropharynx normal <Cj Hernandez MD - Last Filed: 03/01/22 22:42> Eyes General: appearance normal, both eyes and all related structures <Cj Hernandez MD - Last Filed: 03/01/22 22:42> Pupils: Equal, round and reactive pupils present <Cj Hernandez MD - Last Filed: 03/01/22 22:42> Neck Neck: Yes normal visual inspection, Yes no lymphadenopathy, Yes trachea midline and Yes supple <Cj Hernandez MD - Last Filed: 03/01/22 22:42> Chest Chest palpation & inspection: normal inspection of the chest and normal palpation of entire chest wall <Cj Hernandez MD - Last Filed: 03/01/22 22:42> Resp Effort & Inspection: normal respiratory effort and able to speak in complete sentences <Cj Hernandez MD - Last Filed: 03/01/22 22:42> Auscultation: clear to auscultation bilaterally <Cj Hernandez MD - Last Filed: 03/01/22 22:42> Cardio Rate: regular rate <Cj Hernandez MD - Last Filed: 03/01/22 22:42> Rhythm: regular rhythm <MD Esperanza Rinaldi Last Filed: 03/01/22 22:42> Heart sounds: S1 normal heart sound present, S2 normal heart sound present and no mur murs <Cj Hernandez MD - Last Filed: 03/01/22 22:42> GI Inspection: Yes normal to inspection <MD Esperanza Rinaldi Last Filed: 03/01/22 22:42> Palpation (GI): Soft to palpation, Tenderness to palpation present (GI) in the LLQ (Mode rate) and suprapubicly (Moderate) and no guarding <Cj Hernandez MD - Last Filed: 03/01/22 22:42> Auscultation: normal bowel sounds <Cj Hernandez MD - Last Filed: 03/01/22 22:42> General: Yes no CVA tenderness <Cj Hernandez MD - Last Filed: 03/01/22 22:42> Back/Spine/Pelvis Back: no CVA tenderness <Cj Hernandez MD - Last Filed: 03/01/22 22:42> Skin General skin exam: no rashes or lesions noted <Cj Hernandez MD - Last Filed: 03/01/22 22:42> Neuro General: oriented to person and oriented to place <Cj Hernandez MD - Last Filed: 03/01/22 22:42> Cranial nerves: Yes CN's II-XII intact bilaterally and Yes Equal, round and reactive pupils present <Cj Hernandez MD - Last Filed: 03/01/22 22:42> Cognition (Neuro): normal cognition <Cj Hernandez MD - Last Filed: 03/01/22 22:42> Motor exam (neuro): 5/5 motor strength present throughout <Cj Hernandez MD - Last Filed: 03/01/22 22:42> Extrem General: Yes normal to inspection <Cj Hernandez MD - Last Filed: 03/01/22 22:42> Psych Appearance: grossly normal <Cj Hernandez MD - Last Filed: 03/01/22 22:42> Speech and movement: Normal speech and movement present <Cj Hernandez MD - Last Filed: 03/01/22 22:42> Affect: normal affect <Cj Hernandez MD - Last Filed: 03/01/22 22:42> Attitude: cooperative <Cj Hernandez MD - Last Filed: 03/01/22 22:42> Thought process: Normal thought process present <Cj Hernandez MD - Last Filed: 03/01/22 22:42> Thought content: Normal thought content present <Cj Hernandez MD - Last Filed: 03/01/22 22:42> Course Course Course Narrative: RME - 41-year-old female with history of diverticulitis, ETOH abuse, history of pelvic abscess requiring drainage through her buttock at [facility] in the Fall who presents to the ER with worsening left lower quadrant, left pelvic pain and new purulent vaginal discharge that started yesterday. Self medicating with alcohol at home. Required staff assistance to get out of the car. Appears intoxicated and unwell. Labs and CT scan ordered. May also need pelvic U/S, will defer to provider in the main ER. <LIS Nielsen - Last Filed: 03/01/22 18:49> Medical Decision Making Medical Decision Making MDM Narrative: 41-year-old female who presents emergency department for evaluation of lower abdominal pain, worse in the left lower quadrant which she has been experiencing since December 2021 after she had a pelvic abscess drained at [facility]. She states that the pain is intermittent. She states that her doctor was treating her with oxycodone and then changed her tramadol. She was tapered off the tramadol and has been off this medication for 1 week. She has been taking meloxicam with no relief of her pain. She states that the pain was so bad today that she drinks 6 shots of vodka cut to try to medicate her pain. The patient denied fever, chills, vaginal discharge. On her examination she does have left lower quadrant suprapubic tenderness. Following studies were ordered on this patient: CBC, BMP, CRP, ESR, lactic acid, liver panel, magnesium, urinalysis, alcohol level, drug screen urine, blood cultures x2. CT scan of the abdomen pelvis with IV contrast was also ordered. I ordered normal saline 30 cc/kilogram bolus IV, morphine 4 mg IV and Zofran 4 mg IV. 2000: My interpretation the patient's laboratory data is as follows: WBC was normal 7300. Platelet count elevated 553,000. AST elevated 34. Lactic acid elevated 3.6, ethanol elevated 286. CRP was normal 0.24. ESR was only slightly elevated 27 magnesium was normal at 1.9. Urine tox screen was positive for barbiturates. Urinalysis revealed trace leukocyte esterase. Microscopic revealed 0-2 RBCs 0-5 WBCs and no bacteria. The laboratory evaluation is relatively unremarkable. 2221: I did review the radiologist's reading of the patient's CT scan of the abdomen pelvis with IV contrast, at this time I do not think that patient has acute diverticulitis is the cause of her pain. Patient's pain is more of a chronic pain of unclear etiology. The patient's pain got worse after she was taken off tramadol and started on meloxicam, may be a component of narcotic dependence as a cause of the patient's worsening pain. At this time, do not think that it would be appropriate to represcribed opiates. The patient will be advised to continue taking her meloxicam and to take Tylenol as well. Patient was also advised to try to get help with her alcohol use disorder. I also reviewed the pathology surgical specimens from the patient's endoscopy which were consistent with partial villous blunting secondary to celiac disease. I did discuss this with the patient advised her to stay on a strict gluten free diet but I do not think this is the cause of her chronic left lower quadrant pain. <Cj Hernandez MD - Last Filed: 03/01/22 22:42> Differential Diagnosis Differential diagnosis includes was not limited to diverticulitis, colitis, ovarian cyst, ruptured ovarian cyst, hemorrhagic ovarian cyst, recurrence pelvic abscess, pancreatitis <Cj Hernandez MD - Last Filed: 03/01/22 22:42> Lab Data [facility] Lab Attestation statement: I reviewed the patient's lab results. <Cj Hernandez MD - Last Filed: 03/01/22 22:42> Please see the [facility] for I discussion of the patient's labs <Cj Hernandez MD - Last Filed: 03/01/22 22:42> Result Diagrams: 03/01/22 19:12 03/01/22 19:12 <LIS Nielsen - Last Filed: 03/01/22 18:49> Labs: Lab Results 03/01/22 03/01/22 03/01/22 Range/Units 19:12 19:12 19:12 WBC 7.3 (4.8-10.8) X10*3/uL RBC 4.31 (4.20-5.50) X10*6/uL Hgb 12.2 (12.0-16.0) g/dl Hct 38.2 (37.0-47.0) % MCV 88.6 (80.0-98.0) fL MCH 28.3 (27.0-33.0) pg MCHC 31.9 (31.0-35.0) g/dl RDW 14.1 (11.0-16.0) % Plt Count 553 H D (160-400) X10*3/uL MPV 9.7 (9.4-12.3) fL Immature Gran % (Auto) 0.3 (0.0-0.4) % Neut % (Auto) 39.9 L (45-73) % Lymph % (Auto) 44.7 H (20-40) % [place] % (Auto) 7.8 (2-11) % Eos % (Auto) 4.4 H (0-4) % Baso % (Auto) 2.9 H (0-2) % Lymph # (Auto) 3.3 (1.2-4.9) X10*3/uL [place] # (Auto) 0.6 (0.1-1.2) X10*3/uL Eos # (Auto) 0.3 (0.0-0.4) X10*3/uL Baso # (Auto) 0.2 (0.0-0.2) X10*3/uL Abs Immat Gran (auto) 0.02 (0.00-0.03) X10*3/uL Absolute Neuts (auto) 2.9 (2.0-8.3) x10*3/uL Absolute Nucleated RBC 0.000 (0.0-0.012) X10*3/uL Nucleated RBC % (auto) 0.0 (0.0-0.2) /100WBC ESR (0-20) MM/HR Sodium 146 H (135-145) mmol/L Potassium 5.2 H (3.3-5.1) mmol/L Chloride 110 H (96-108) mmol/L Carbon Dioxide 24 (22-29) mmol/L Anion Gap 17 (12-20) BUN 7 L D (9-16) mg/dL Creatinine 0.61 (0.5-1.4) mg/dL Estim Creat Clear Calc 97.9 Estimated GFR > 60 Random Glucose 94 (60-115) mg/dL Lactic Acid (0.5-2.0) mmol/L Calcium 10.0 (8.4-10.2) mg/dL Magnesium 1.9 (1.6-2.6) mg/dL Total Bilirubin 0.2 (0.0-1.0) mg/dL Direct Bilirubin < 0.2 (0.0-0.5) mg/dL AST 34 H D (5-31) U/L ALT 20 (0-31) U/L Alkaline Phosphatase 73 D (39-117) U/L C-Reactive Protein (< or = 0.50) mg/dL Total Protein 7.9 (6.5-8.0) g/dL Albumin 4.4 (3.5-5.0) g/dL Urine Color Urine Appearance Urine pH (5.0-9.0) Ur Specific [place] (1.005-1.025) Urine Protein (Neg-Trace) mg/dL Urine Glucose (UA) (Negative) mg/dL Urine Ketones (Negative) mg/dL Urine Blood (Negative) Urine Nitrite (Negative) Ur Leukocyte Esterase (Negative) Urine RBC (0-2) /HPF Urine WBC (0-5) /HPF Ur Squamous Epith Cells (0-2) /HPF Urine Bacteria (None Seen) Hyaline Casts (0-2) /LPF Urine Opiates Screen (Not Detect) Urine Fentanyl Screen (Not Detect) Ur Barbiturates Screen (Not Detect) Ur Phencyclidine Scrn (Not Detect) Ur Amphetamines Screen (Not Detect) U Benzodiazepines Scrn (Not Detect) Urine Cocaine Screen (Not Detect) U Marijuana (THC) Screen (Not Detect) Ethyl Alcohol mg/dL COVID-19 (JABARI) Negative (Negative) COVID-19 Clin Com See Note 03/01/22 03/01/22 03/01/22 Range/Units 19:12 19:12 19:12 WBC (4.8-10.8) X10*3/uL RBC (4.20-5.50) X10*6/uL Hgb (12.0-16.0) g/dl Hct (37.0-47.0) % MCV (80.0-98.0) fL MCH (27.0-33.0) pg MCHC (31.0-35.0) g/dl RDW (11.0-16.0) % Plt Count (160-400) X10*3/uL MPV (9.4-12.3) fL Immature Gran % (Auto) (0.0-0.4) % Neut % (Auto) (45-73) % Lymph % (Auto) (20-40) % [place] % (Auto) (2-11) % Eos % (Auto) (0-4) % Baso % (Auto) (0-2) % Lymph # (Auto) (1.2-4.9) X10*3/uL [place] # (Auto) (0.1-1.2) X10*3/uL Eos # (Auto) (0.0-0.4) X10*3/uL Baso # (Auto) (0.0-0.2) X10*3/uL Abs Immat Gran (auto) (0.00-0.03) X10*3/uL Absolute Neuts (auto) (2.0-8.3) x10*3/uL Absolute Nucleated RBC (0.0-0.012) X10*3/uL Nucleated RBC % (auto) (0.0-0.2) /100WBC ESR 27 H (0-20) MM/HR Sodium (135-145) mmol/L Potassium (3.3-5.1) mmol/L Chloride (96-108) mmol/L Carbon Dioxide (22-29) mmol/L Anion Gap (12-20) BUN (9-16) mg/dL Creatinine (0.5-1.4) mg/dL Estim Creat Clear Calc Estimated GFR Random Glucose (60-115) mg/dL Lactic Acid 3.6 H* (0.5-2.0) mmol/L Calcium (8.4-10.2) mg/dL Magnesium (1.6-2.6) mg/dL Total Bilirubin (0.0-1.0) mg/dL Direct Bilirubin (0.0-0.5) mg/dL AST (5-31) U/L ALT (0-31) U/L Alkaline Phosphatase (39-117) U/L C-Reactive Protein 0.24 (< or = 0.50) mg/dL Total Protein (6.5-8.0) g/dL Albumin (3.5-5.0) g/dL Urine Color Urine Appearance Urine pH (5.0-9.0) Ur Specific [place] (1.005-1.025) Urine Protein (Neg-Trace) mg/dL Urine Glucose (UA) (Negative) mg/dL Urine Ketones (Negative) mg/dL Urine Blood (Negative) Urine Nitrite (Negative) Ur Leukocyte Esterase (Negative) Urine RBC (0-2) /HPF Urine WBC (0-5) /HPF Ur Squamous Epith Cells (0-2) /HPF Urine Bacteria (None Seen) Hyaline Casts (0-2) /LPF Urine Opiates Screen (Not Detect) Urine Fentanyl Screen (Not Detect) Ur Barbiturates Screen (Not Detect) Ur Phencyclidine Scrn (Not Detect) Ur Amphetamines Screen (Not Detect) U Benzodiazepines Scrn (Not Detect) Urine Cocaine Screen (Not Detect) U Marijuana (THC) Screen (Not Detect) Ethyl Alcohol 286 mg/dL COVID-19 (JABARI) (Negative) COVID-19 Clin Com 03/01/22 03/01/22 Range/Units 20:32 20:32 WBC (4.8-10.8) X10*3/uL RBC (4.20-5.50) X10*6/uL Hgb (12.0-16.0) g/dl Hct (37.0-47.0) % MCV (80.0-98.0) fL MCH (27.0-33.0) pg MCHC (31.0-35.0) g/dl RDW (11.0-16.0) % Plt Count (160-400) X10*3/uL MPV (9.4-12.3) fL Immature Gran % (Auto) (0.0-0.4) % Neut % (Auto) (45-73) % Lymph % (Auto) (20-40) % [place] % (Auto) (2-11) % Eos % (Auto) (0-4) % Baso % (Auto) (0-2) % Lymph # (Auto) (1.2-4.9) X10*3/uL [place] # (Auto) (0.1-1.2) X10*3/uL Eos # (Auto) (0.0-0.4) X10*3/uL Baso # (Auto) (0.0-0.2) X10*3/uL Abs Immat Gran (auto) (0.00-0.03) X10*3/uL Absolute Neuts (auto) (2.0-8.3) x10*3/uL Absolute Nucleated RBC (0.0-0.012) X10*3/uL Nucleated RBC % (auto) (0.0-0.2) /100WBC ESR (0-20) MM/HR Sodium (135-145) mmol/L Potassium (3.3-5.1) mmol/L Chloride (96-108) mmol/L Carbon Dioxide (22-29) mmol/L Anion Gap (12-20) BUN (9-16) mg/dL Creatinine (0.5-1.4) mg/dL Estim Creat Clear Calc Estimated GFR Random Glucose (60-115) mg/dL Lactic Acid (0.5-2.0) mmol/L Calcium (8.4-10.2) mg/dL Magnesium (1.6-2.6) mg/dL Total Bilirubin (0.0-1.0) mg/dL Direct Bilirubin (0.0-0.5) mg/dL AST (5-31) U/L ALT (0-31) U/L Alkaline Phosphatase (39-117) U/L C-Reactive Protein (< or = 0.50) mg/dL Total Protein (6.5-8.0) g/dL Albumin (3.5-5.0) g/dL Urine Color Yellow Urine Appearance Clear Urine pH 7.5 (5.0-9.0) Ur Specific [place] >= 1.030 H (1.005-1.025) Urine Protein Negative (Neg-Trace) mg/dL Urine Glucose (UA) Negative (Negative) mg/dL Urine Ketones Negative (Negative) mg/dL Urine Blood Negative (Negative) Urine Nitrite Negative (Negative) Ur Leukocyte Esterase Trace H (Negative) Urine RBC 0-2 (0-2) /HPF Urine WBC 0-5 (0-5) /HPF Ur Squamous Epith Cells 3-5 (0-2) /HPF Urine Bacteria Trace (None Seen) Hyaline Casts 0-2 (0-2) /LPF Urine Opiates Screen Not Detected (Not Detect) Urine Fentanyl Screen Not Detected (Not Detect) Ur Barbiturates Screen POSITIVE H (Not Detect) Ur Phencyclidine Scrn Not Detected (Not Detect) Ur Amphetamines Screen Not Detected (Not Detect) U Benzodiazepines Scrn Not Detected (Not Detect) Urine Cocaine Screen Not Detected (Not Detect) U Marijuana (THC) Screen Not Detected (Not Detect) Ethyl Alcohol mg/dL COVID-19 (JABARI) (Negative) COVID-19 Clin Com <LIS Nielsen - Last Filed: 03/01/22 18:49> Lab Results 03/01/22 03/01/22 03/01/22 Range/Units 19:12 19:12 19:12 WBC 7.3 (4.8-10.8) X10*3/uL RBC 4.31 (4.20-5.50) X10*6/uL Hgb 12.2 (12.0-16.0) g/dl Hct 38.2 (37.0-47.0) % MCV 88.6 (80.0-98.0) fL MCH 28.3 (27.0-33.0) pg MCHC 31.9 (31.0-35.0) g/dl RDW 14.1 (11.0-16.0) % Plt Count 553 H D (160-400) X10*3/uL MPV 9.7 (9.4-12.3) fL Immature Gran % (Auto) 0.3 (0.0-0.4) % Neut % (Auto) 39.9 L (45-73) % Lymph % (Auto) 44.7 H (20-40) % [place] % (Auto) 7.8 (2-11) % Eos % (Auto) 4.4 H (0-4) % Baso % (Auto) 2.9 H (0-2) % Lymph # (Auto) 3.3 (1.2-4.9) X10*3/uL [place] # (Auto) 0.6 (0.1-1.2) X10*3/uL Eos # (Auto) 0.3 (0.0-0.4) X10*3/uL Baso # (Auto) 0.2 (0.0-0.2) X10*3/uL Abs Immat Gran (auto) 0.02 (0.00-0.03) X10*3/uL Absolute Neuts (auto) 2.9 (2.0-8.3) x10*3/uL Absolute Nucleated RBC 0.000 (0.0-0.012) X10*3/uL Nucleated RBC % (auto) 0.0 (0.0-0.2) /100WBC ESR (0-20) MM/HR Sodium 146 H (135-145) mmol/L Potassium 5.2 H (3.3-5.1) mmol/L Chloride 110 H (96-108) mmol/L Carbon Dioxide 24 (22-29) mmol/L Anion Gap 17 (12-20) BUN 7 L D (9-16) mg/dL Creatinine 0.61 (0.5-1.4) mg/dL Estim Creat Clear Calc 97.9 Estimated GFR > 60 Random Glucose 94 (60-115) mg/dL Lactic Acid (0.5-2.0) mmol/L Calcium 10.0 (8.4-10.2) mg/dL Magnesium 1.9 (1.6-2.6) mg/dL Total Bilirubin 0.2 (0.0-1.0) mg/dL Direct Bilirubin < 0.2 (0.0-0.5) mg/dL AST 34 H D (5-31) U/L ALT 20 (0-31) U/L Alkaline Phosphatase 73 D (39-117) U/L C-Reactive Protein (< or = 0.50) mg/dL Total Protein 7.9 (6.5-8.0) g/dL Albumin 4.4 (3.5-5.0) g/dL Urine Color Urine Appearance Urine pH (5.0-9.0) Ur Specific [place] (1.005-1.025) Urine Protein (Neg-Trace) mg/dL Urine Glucose (UA) (Negative) mg/dL Urine Ketones (Negative) mg/dL Urine Blood (Negative) Urine Nitrite (Negative) Ur Leukocyte Esterase (Negative) Urine RBC (0-2) /HPF Urine WBC (0-5) /HPF Ur Squamous Epith Cells (0-2) /HPF Urine Bacteria (None Seen) Hyaline Casts (0-2) /LPF Urine Opiates Screen (Not Detect) Urine Fentanyl Screen (Not Detect) Ur Barbiturates Screen (Not Detect) Ur Phencyclidine Scrn (Not Detect) Ur Amphetamines Screen (Not Detect) U Benzodiazepines Scrn (Not Detect) Urine Cocaine Screen (Not Detect) U Marijuana (THC) Screen (Not Detect) Ethyl Alcohol mg/dL COVID-19 (JABARI) Negative (Negative) COVID-19 Clin Com See Note 03/01/22 03/01/22 03/01/22 Range/Units 19:12 19:12 19:12 WBC (4.8-10.8) X10*3/uL RBC (4.20-5.50) X10*6/uL Hgb (12.0-16.0) g/dl Hct (37.0-47.0) % MCV (80.0-98.0) fL MCH (27.0-33.0) pg MCHC (31.0-35.0) g/dl RDW (11.0-16.0) % Plt Count (160-400) X10*3/uL MPV (9.4-12.3) fL Immature Gran % (Auto) (0.0-0.4) % Neut % (Auto) (45-73) % Lymph % (Auto) (20-40) % [place] % (Auto) (2-11) % Eos % (Auto) (0-4) % Baso % (Auto) (0-2) % Lymph # (Auto) (1.2-4.9) X10*3/uL [place] # (Auto) (0.1-1.2) X10*3/uL Eos # (Auto) (0.0-0.4) X10*3/uL Baso # (Auto) (0.0-0.2) X10*3/uL Abs Immat Gran (auto) (0.00-0.03) X10*3/uL Absolute Neuts (auto) (2.0-8.3) x10*3/uL Absolute Nucleated RBC (0.0-0.012) X10*3/uL Nucleated RBC % (auto) (0.0-0.2) /100WBC ESR 27 H (0-20) MM/HR Sodium (135-145) mmol/L Potassium (3.3-5.1) mmol/L Chloride (96-108) mmol/L Carbon Dioxide (22-29) mmol/L Anion Gap (12-20) BUN (9-16) mg/dL Creatinine (0.5-1.4) mg/dL Estim Creat Clear Calc Estimated GFR Random Glucose (60-115) mg/dL Lactic Acid 3.6 H* (0.5-2.0) mmol/L Calcium (8.4-10.2) mg/dL Magnesium (1.6-2.6) mg/dL Total Bilirubin (0.0-1.0) mg/dL Direct Bilirubin (0.0-0.5) mg/dL AST (5-31) U/L ALT (0-31) U/L Alkaline Phosphatase (39-117) U/L C-Reactive Protein 0.24 (< or = 0.50) mg/dL Total Protein (6.5-8.0) g/dL Albumin (3.5-5.0) g/dL Urine Color Urine Appearance Urine pH (5.0-9.0) Ur Specific [place] (1.005-1.025) Urine Protein (Neg-Trace) mg/dL Urine Glucose (UA) (Negative) mg/dL Urine Ketones (Negative) mg/dL Urine Blood (Negative) Urine Nitrite (Negative) Ur Leukocyte Esterase (Negative) Urine RBC (0-2) /HPF Urine WBC (0-5) /HPF Ur Squamous Epith Cells (0-2) /HPF Urine Bacteria (None Seen) Hyaline Casts (0-2) /LPF Urine Opiates Screen (Not Detect) Urine Fentanyl Screen (Not Detect) Ur Barbiturates Screen (Not Detect) Ur Phencyclidine Scrn (Not Detect) Ur Amphetamines Screen (Not Detect) U Benzodiazepines Scrn (Not Detect) Urine Cocaine Screen (Not Detect) U Marijuana (THC) Screen (Not Detect) Ethyl Alcohol 286 mg/dL COVID-19 (JABARI) (Negative) COVID-19 Clin Com 03/01/22 03/01/22 Range/Units 20:32 20:32 WBC (4.8-10.8) X10*3/uL RBC (4.20-5.50) X10*6/uL Hgb (12.0-16.0) g/dl Hct (37.0-47.0) % MCV (80.0-98.0) fL MCH (27.0-33.0) pg MCHC (31.0-35.0) g/dl RDW (11.0-16.0) % Plt Count (160-400) X10*3/uL MPV (9.4-12.3) fL Immature Gran % (Auto) (0.0-0.4) % Neut % (Auto) (45-73) % Lymph % (Auto) (20-40) % [place] % (Auto) (2-11) % Eos % (Auto) (0-4) % Baso % (Auto) (0-2) % Lymph # (Auto) (1.2-4.9) X10*3/uL [place] # (Auto) (0.1-1.2) X10*3/uL Eos # (Auto) (0.0-0.4) X10*3/uL Baso # (Auto) (0.0-0.2) X10*3/uL Abs Immat Gran (auto) (0.00-0.03) X10*3/uL Absolute Neuts (auto) (2.0-8.3) x10*3/uL Absolute Nucleated RBC (0.0-0.012) X10*3/uL Nucleated RBC % (auto) (0.0-0.2) /100WBC ESR (0-20) MM/HR Sodium (135-145) mmol/L Potassium (3.3-5.1) mmol/L Chloride (96-108) mmol/L Carbon Dioxide (22-29) mmol/L Anion Gap (12-20) BUN (9-16) mg/dL Creatinine (0.5-1.4) mg/dL Estim Creat Clear Calc Estimated GFR Random Glucose (60-115) mg/dL Lactic Acid (0.5-2.0) mmol/L Calcium (8.4-10.2) mg/dL Magnesium (1.6-2.6) mg/dL Total Bilirubin (0.0-1.0) mg/dL Direct Bilirubin (0.0-0.5) mg/dL AST (5-31) U/L ALT (0-31) U/L Alkaline Phosphatase (39-117) U/L C-Reactive Protein (< or = 0.50) mg/dL Total Protein (6.5-8.0) g/dL Albumin (3.5-5.0) g/dL Urine Color Yellow Urine Appearance Clear Urine pH 7.5 (5.0-9.0) Ur Specific [place] >= 1.030 H (1.005-1.025) Urine Protein Negative (Neg-Trace) mg/dL Urine Glucose (UA) Negative (Negative) mg/dL Urine Ketones Negative (Negative) mg/dL Urine Blood Negative (Negative) Urine Nitrite Negative (Negative) Ur Leukocyte Esterase Trace H (Negative) Urine RBC 0-2 (0-2) /HPF Urine WBC 0-5 (0-5) /HPF Ur Squamous Epith Cells 3-5 (0-2) /HPF Urine Bacteria Trace (None Seen) Hyaline Casts 0-2 (0-2) /LPF Urine Opiates Screen Not Detected (Not Detect) Urine Fentanyl Screen Not Detected (Not Detect) Ur Barbiturates Screen POSITIVE H (Not Detect) Ur Phencyclidine Scrn Not Detected (Not Detect) Ur Amphetamines Screen Not Detected (Not Detect) U Benzodiazepines Scrn Not Detected (Not Detect) Urine Cocaine Screen Not Detected (Not Detect) U Marijuana (THC) Screen Not Detected (Not Detect) Ethyl Alcohol mg/dL COVID-19 (JABARI) (Negative) COVID-19 Clin Com <Cj Hernandez MD - Last Filed: 03/01/22 22:42> Radiology Impression Discussion of test interpretation with radiology: I have reviewed the radiologist's reading. <Cj Hernandez MD - Last Filed: 03/01/22 22:42> Radiologist Impression: CT abdomen pelvis w IV con IMPRESSION: 1. Colonic diverticulosis. Mild mural thickening versus incomplete distention of the sigmoid colon. No appreciable pericolonic inflammatory change to suggest acute diverticulitis, though it would be difficult to exclude mild acute sigmoid diverticulitis versus changes of chronic diverticulitis. 2. 3 probable functional cysts in the left ovary, largest 2.8 cm in size. Dictated By:Mehran HerreraSigned By:<Electronically signed by Mehran Herrera in [place]>03/01/222046 <Cj Hernandez MD - Last Filed: 03/01/22 22:42> External Record Review External record reviewed: Other (Surgical pathology the from endoscopy on 02/23/2022) <Cj Hernandez MD - Last Filed: 03/01/22 22:42> Medications Administered Discontinued Medications Generic Name Dose Route Start Last Admin Trade Name Freq PRN Reason Stop Dose Admin Sodium Chloride 1,000 mls @ 999 mls/hr 03/01/22 18:45 03/01/22 19:36 Ns IVCONT 03/01/22 19:45 999 mls/hr .Q1H1M GHASSAN Administration Iohexol 100 ml 03/01/22 19:55 03/01/22 19:56 Iohexol 350 Mg/Ml 100 Ml Infus..Btl IV 03/01/22 19:56 85 ml ONCE ONE Administration Morphine Sulfate 4 mg 03/01/22 19:36 03/01/22 20:27 Morphine Sulfate 4 Mg/Ml Cartridge IVPUSH 03/01/22 19:37 4 mg ONCE STA Administration Protocol Ondansetron HCl 4 mg 03/01/22 19:24 03/01/22 20:27 Ondansetron Hcl 4 Mg/2 Ml Vial IVPUSH 03/01/22 19:25 4 mg ONCE ONE Administration <LIS Nielsen - Last Filed: 03/01/22 18:49> Medications Administered Discontinued Medications Generic Name Dose Route Start Last Admin Trade Name Freq PRN Reason Stop Dose Admin Sodium Chloride 1,000 mls @ 999 mls/hr 03/01/22 18:45 03/01/22 19:36 Ns IVCONT 03/01/22 19:45 999 mls/hr .Q1H1M GHASSAN Administration Iohexol 100 ml 03/01/22 19:55 03/01/22 19:56 Iohexol 350 Mg/Ml 100 Ml Infus..Btl IV 03/01/22 19:56 85 ml ONCE ONE Administration Morphine Sulfate 4 mg 03/01/22 19:36 03/01/22 20:27 Morphine Sulfate 4 Mg/Ml Cartridge IVPUSH 03/01/22 19:37 4 mg ONCE STA Administration Protocol Ondansetron HCl 4 mg 03/01/22 19:24 03/01/22 20:27 Ondansetron Hcl 4 Mg/2 Ml Vial IVPUSH 03/01/22 19:25 4 mg ONCE ONE Administration <Cj Hernandez MD - Last Filed: 03/01/22 22:42> Discharge Plan Discharge Clinical Impression: Abdominal pain, Alcohol intoxication, Alcohol use disorder <LIS Nielsen - Last Filed: 03/01/22 18:49> Patient Disposition: Home, Self-Care <LIS Nielsen - Last Filed: 03/01/22 18:49> Additional Instructions: Your laboratory evaluation was unremarkable and did not reveal cause for your abdominal pain. The CT scan of your abdomen pelvis did not reveal a cause for the pain in the left lower part of your abdomen. You do have diverticulosis but no evidence of infection of the diverticula (diverticulitis). Your alcohol level was elevated but this was secondary to you drinking sick shots of vodka. I did review the surgical pathology from your endoscopy, you will need to discuss these results with Dr. Lebron but I believe that the most significant finding is that you do have celiac disease and it is important that you stay on a strict gluten free diet. Take ibuprofen 200 mg pills, 3 pills every 6 hours as needed for pain. Take Tylenol (acetaminophen) 500 mg pills, 2 pills every 4 to 6 hours as needed for pain. Follow-up with your doctor in 2 days. Please return to the emergency department if your symptoms get worse or if you develop any symptoms that are concerning to you. You should consider getting help for your alcohol use disorder. <LIS Nielsen - Last Filed: 03/01/22 18:49> Prescriptions: No Action sertraline 25 mg tablet 50 mg PO DAILY Qty: 90 1RF thiamine mononitrate (vit B1) 100 mg tablet 100 mg PO DAILY Qty: 30 0RF tramadol 50 mg tablet 50 mg PO DAILY PRN (Reason: pain) 7 Days Qty: 7 0RF meloxicam 15 mg tablet 15 mg PO DAILY PRN (Reason: pain, moderate) 15 Days Qty: 15 2RF melatonin 5 mg Tablet 5 mg PO BEDTIME PRN (Reason: Sleep) cholecalciferol (vitamin D3) 25 mcg (1,000 unit) Tablet 25 mcg PO DAILY folic acid 1 mg tablet 1 mg PO DAILY Qty: 30 0RF vitamin B complex [B Complex-Vitamin B12] Tablet 1 tab PO DAILY Qty: 30 0RF magnesium oxide 400 mg (241.3 mg magnesium) Tablet 400 mg PO BIDPC Qty: 60 0RF ondansetron 4 mg tablet,disintegrating 4 mg PO Q8H PRN (Reason: Nausea) omeprazole 20 mg capsule,delayed release(DR/EC) 20 mg PO DAILY 30 Days Qty: 30 3RF hydroxyzine HCl 25 mg tablet 25 mg PO BEDTIME 30 Days Qty: 30 3RF acetaminophen [Tylenol Arthritis Pain] 650 mg tablet extended release 650 mg PO Q12H 30 Days Qty: 60 3RF cholecalciferol (vitamin D3) 1,250 mcg (50,000 unit) capsule 0 mcg PO <LIS Nielsen - Last Filed: 03/01/22 18:49>
[2022-03-01 18:58] VITALS: BP 105/68; PULSE 100; RESP 20; TEMP 36.6; O2SAT 97
[2022-03-01 19:20] LABS: MANUAL DIFF FLAG NO
[2022-03-01 19:22] LABS: Basophils Absolute Auto 0.2 X10*3/uL (0.0-0.2); Basophils Percent Auto 2.9 % (0-2); Eosinophils Absolute Auto 0.3 X10*3/uL (0.0-0.4); Eosinophils Percent Auto 4.4 % (0-4); Hematocrit 38.2 % (37.0-47.0); Hemoglobin 12.2 g/dl (12.0-16.0); Imm Gran Abs Auto 0.02 X10*3/uL (0.00-0.03); Imm Gran Pct Auto 0.3 % (0.0-0.4); Lymphocytes Absolute Auto 3.3 X10*3/uL (1.2-4.9); Lymphocytes Percent Auto 44.7 % (20-40); Mean Corpuscular HGB Conc 31.9 g/dl (31.0-35.0); Mean Corpuscular Hemoglobin 28.3 pg (27.0-33.0); Mean Corpuscular Volume 88.6 fL (80.0-98.0); Mean Platelet Volume 9.7 fL (9.4-12.3); Monocytes Absolute Auto 0.6 X10*3/uL (0.1-1.2); Monocytes Percent Auto 7.8 % (2-11); Neutrophils Absolute Auto 2.9 x10*3/uL (2.0-8.3); Neutrophils Percent Auto 39.9 % (45-73); Platelet Count 553 X10*3/uL (160-400); Red Blood Count 4.31 X10*6/uL (4.20-5.50); Red Cell Distribution Width 14.1 % (11.0-16.0); White Blood Count 7.3 X10*3/uL (4.8-10.8)
[2022-03-01] MEDS: 0.9 % Sodium Chloride 1,000 ML 999 ML IVCONT (19:36)
[2022-03-01 19:37] LABS: C Reactive Protein 0.24 mg/dL (< or = 0.50); Ethanol 286 mg/dL
[2022-03-01 19:39] LABS: Alanine Aminotransferase 20 U/L (0-31); Albumin Level 4.4 g/dL (3.5-5.0); Alkaline Phosphatase 73 U/L (39-117); Anion Gap 17 (12-20); Aspartate Amino Transferase 34 U/L (5-31); Bilirubin Direct < 0.2 mg/dL (0.0-0.5); Bilirubin Total 0.2 mg/dL (0.0-1.0); Blood Urea Nitrogen 7 mg/dL (9-16); COVID-19 Test Negative (Negative); Carbon Dioxide 24 mmol/L (22-29); Chloride 110 mmol/L (96-108); Creatinine Clr Calc Pharmacy 97.9; Estimated Glomerular Filt Rate > 60; Glucose Random 94 mg/dL (60-115); IDNOW Serial# 55D5AD1C; Magnesium 1.9 mg/dL (1.6-2.6); Potassium 5.2 mmol/L (3.3-5.1); Sodium 146 mmol/L (135-145); Total Protein 7.9 g/dL (6.5-8.0)
[2022-03-01 19:45] LABS: Lactic Acid 3.6 mmol/L (0.5-2.0)
[2022-03-01] MEDS: iohexoL 350 MG/ML 100 ML INFUS..BTL IV (19:56)
[2022-03-01 20:27] VITALS: RESP 18
[2022-03-01] MEDS: Morphine Sulfate 4 MG/ML CARTRIDGE IVPUSH (20:27)
[2022-03-01] MEDS: ondansetron HCL 4 MG/2 ML VIAL IVPUSH (20:27)
[2022-03-01 20:44] LABS: Erythrocyte Sedimentation Rate 27 MM/HR (0-20)
[2022-03-01 21:02] VITALS: BP 99/63; PULSE 95; RESP 16; TEMP 36.3; O2SAT 96
[2022-03-01 21:10] LABS: Appearance Urine Clear; Color Urine Yellow; Glucose Urine UA Negative (Negative); Leukocyte Esterase Urine Trace (Negative); Nitrite Urine Negative (Negative); PH 7.5 (5.0-9.0); Specific Gravity - Urine >= 1.030 (1.005-1.025); UMIC TRIGGER UACC YES; Urine Blood Negative (Negative); Urine Ketones Negative (Negative); Urine Protein Negative (Neg-Trace)
[2022-03-01 21:15] LABS: Bacteria Urine Trace (None Seen); Hyaline Casts Urine 0-2 /LPF (0-2); RBC Urine 0-2 /HPF (0-2); WBC Urine 0-5 /HPF (0-5)
[2022-03-01 21:18] LABS: Reflex Lactate? Lactic Acid Added
[2022-03-01 21:28] VITALS: BP 117/76; PULSE 87
[2022-03-01 21:28] LABS: Amphetamine Screen Urine Not Detected (Not Detect); Barbiturates, Urine POSITIVE (Not Detect); Benzodiazepines Screen Urine Not Detected (Not Detect); Cannabinoid Screen Urine Not Detected (Not Detect); Cocaine Screen Urine Not Detected (Not Detect); Fentanyl, urine Not Detected (Not Detect); Opiate Screen Urine Not Detected (Not Detect); Phencyclidine Screen Urine Not Detected (Not Detect)
[2022-03-01] MEDS: 0.9 % Sodium Chloride 1,564.89 ML 1564.89 ML IV (22:25)
[2022-03-01 22:40] LABS: ~Lactic Acid-LAB USE ONLY 2.4 mmol/L (0.5-2.0)
[2022-03-02 00:15] LABS: Reflex Lactate? 2 Y
== END 2022-03-01 23:21 | disposition home or self-care (01) ==
PROVIDERS: Physician Assistant; Emergency Provider Emergency Medicine Emergency Medical Services; PCP Physician Assistant
DX: R10.30 Lower abdominal pain, unspecified (principal); F10.120 Alcohol abuse with intoxication, uncomplicated; Y90.8 Blood alcohol level of 240 mg/100 ml or more; Z87.891 Personal history of nicotine dependence; Z20.822 Contact with and (suspected) exposure to COVID-19; Z79.899 Other long term (current) drug therapy
CPT/HCPCS: 36415; 74177; 80048; 80076; 80307; 81001; 82077; 83605; 83735; 85025; 85652; 86140; 87040; 87147; 87205; 87635; 96361; 96374; 96375; 99284; J2270; J2405; Q9967

== ENCOUNTER 2022-03-02 10:41 | Outpatient (REF) | payer OTHER, SELFPAY ==
--- NOTE | ~2022-03-02 | US_ITS ---
EXAMINATION: US VENOUS WITH DOPPLER UPPER EXTREMITY, right arm CLINICAL INFORMATION: Follow-up thrombophlebitis COMPARISON: None TECHNIQUE: Ultrasound of the upper extremity is performed using compression sonography and color and pulse Doppler flow with assessment of augmentation of flow. There is also imaging and Doppler assessment of the jugular and subclavian veins. Spectral analysis with color-flow imaging is performed. FINDINGS: Respiratory variation, normal compression, and augmented flow are noted throughout the upper extremity including the axillary, brachial, cubital, and radial and ulnar veins. There is normal flow in the internal jugular and subclavian veins. No DVT is seen. Again seen is thrombosed superficial cephalic vein from the distal forearm on the way up to the upper arm. If the patient's symptoms progress, a followup ultrasound in 5 -7 days might be of value to exclude proximal propagation from a nonvisualized distal arm vein. US/US venous duplex UE RT IMPRESSION: No DVT demonstrated in the right upper extremity. Superficial thrombophlebitis is present and unchanged.
== END 2022-03-02 10:42 | disposition home or self-care (01) ==
LOC: HO.US 10:41
PROVIDERS: PCP Physician Assistant; Visit Provider Physician Assistant
DX: I80.8 Phlebitis and thrombophlebitis of other sites (principal)
CPT/HCPCS: 93971

== ENCOUNTER 2022-05-08 21:38 | Emergency (ER) | payer OTHER, SELFPAY ==
[2022-05-08 21:47] VITALS: BP 126/73; BP 150/90; PULSE 100; PULSE 95; RESP 18; TEMP 36.5; O2SAT 100; O2SAT 99; BMI 20.3
--- NOTE | 2022-05-08 22:10 | ED.GENADULT ---
HPI - General Adult General Chief complaint: ETOH/Substance Use Stated complaint: ETOH Time Seen by Provider: 05/08/22 21:44 Source: patient, EMS, RN notes reviewed and old records reviewed Mode of arrival: EMS Limitations: other (intoxication) History of Present Illness HPI narrative: 41-year-old female past medical history significant for chronic alcohol abuse, severe arthritis, GERD with EGD the depression, anxiety presents for evaluation of her ?alcohol. ? Patient reports that she is here because ?I have been drinking alcohol only for the last 5 days. She reports that she has not been eating or drinking medical anything else other than the alcohol and last 5 days. Home reports that she currently feels nauseous. She denies any pain. The patient's last drink was just prior to arrival. Apparently the patient's boyfriend called and asked for her to get detox. I, patient tells me that she is not sure she wants detox because ?I have done that before. ? She reports that she has been drinking because ?my two best friends . Related Data Home Medications Medication Instructions Recorded Confirmed melatonin 5 mg tablet 5 mg PO BEDTIME PRN Sleep 07/29/21 01/26/22 cholecalciferol (vitamin D3) 25 25 mcg PO DAILY 09/11/21 01/26/22 mcg (1,000 unit) tablet ondansetron 4 mg disintegrating 4 mg PO Q8H PRN Nausea 11/10/21 01/26/22 tablet cholecalciferol (vitamin D3) 1,250 0 mcg PO 01/05/22 01/26/22 mcg (50,000 unit) capsule Previous Rx's Medication Instructions Recorded sertraline 25 mg tablet 50 mg PO DAILY #90 tabs 11/04/21 thiamine mononitrate (vit B1) 100 100 mg PO DAILY #30 tabs 11/04/21 mg tablet folic acid 1 mg tablet 1 mg PO DAILY #30 tabs 11/10/21 vitamin B complex (B 1 tab PO DAILY #30 tabs 11/10/21 Complex-Vitamin B12 tablet) magnesium oxide 400 mg (241.3 mg 400 mg PO BIDPC #60 tabs 11/29/21 magnesium) tablet acetaminophen 650 mg 650 mg PO Q12H 30 days #60 tabs 12/08/21 tablet,extended release (Tylenol Arthritis Pain) hydroxyzine HCl 25 mg tablet 25 mg PO BEDTIME 30 days #30 tabs 10/19/22 omeprazole 20 mg capsule,delayed 20 mg PO DAILY 30 days #30 caps 12/08/21 release tramadol 50 mg tablet 50 mg PO DAILY PRN pain 7 days #7 02/21/22 tabs meloxicam 15 mg tablet 15 mg PO DAILY PRN pain, moderate 02/26/22 15 days #15 tabs Allergies Allergy/AdvReac Type Severity Reaction Status Date / Time amoxicillin [From Augmentin] Allergy Intermediate Abdominal Verified 01/26/22 10:54 Pain clavulanic acid Allergy Intermediate Abdominal Verified 01/26/22 10:54 [From Augmentin] Pain Sulfa (Sulfonamide Allergy Mild RASH Verified 01/26/22 10:54 Antibiotics) [SULFA (SULFONAMIDE ANTIBIOTICS)] magnesium AdvReac Diarrhea Verified 01/26/22 10:54 Review of Systems Constitutional: Constitutional: Reports as per HPI, Denies chills, Denies fatigue, Denies fever(s) and Denies headache(s) ENT: Denies headache(s) Cardiovascular: Cardiovascular: Denies chest pain and Denies dyspnea Respiratory: Respiratory: Denies cough and Denies dyspnea Gastrointestinal: Gastrointestinal: Denies abdominal pain, Denies constipation, Reports nausea and Denies vomiting Genitourinary: Genitourinary: Denies dysuria Neurologic: Denies headache(s) and Denies focal weakness Endocrine: Endocrine: Denies fatigue PMFSH Past Medical History Medical History Alcohol abuse Anxiety Diverticulitis Pelvic abscess in female Pelvic abscess in female Surgical History No pertinent past surgical history Family History Family History Father Medical history unknown Mother Medical history unknown Paternal Grandfather Cancer Sister Epilepsy Daughter In good health Son In good health Social History Social History Household Members: None Housing: Apartment Do you presently have visiting nurse or other home services: No Alcohol intake: current Alcohol intake frequency: 3 or more drinks per day Alcohol type: hard liquor Patient Tobacco Use Status: Former Tobacco user Quit Date: 2006 Tobacco use type: Cigarette Smoked in Last 30 Days: Yes e-Cigarette/Vaping Use: Former Use Second Hand Smoke Exposure: No Use of substances other than those prescribed or required for medical reasons: No Advance Directives: Yes Advance Directives on File: Yes Advance Directives Date on File: 01/25/21 Patient : No service: No Current occupational status: unemployed Cognitive needs: No Hearing needs: No Vision needs: No Physical Exam ED Vital Signs: Vital Signs - 24 hr 05/08/22 21:47 05/08/22 23:39 05/09/22 01:32 Temperature 97.7 F 96 F L 97.6 F Pulse Rate 100 129 H 74 Respiratory Rate 18 20 16 Blood Pressure 126/73 121/80 126/74 Pulse Oximetry 100 100 98 Oxygen Delivery Method Room Air Room Air Room Air BMI result Body Mass Index 20.3 Const General: healthy appearing, comfortable, no acute distress, alert and awake Nutritional Appearance: well nourished and thin Orientation/consciousness: patient oriented x3 HENMT Head: Yes normocephalic and Yes atraumatic Throat: Yes posterior oropharynx normal Eyes Eyelids: Yes eyelids normal Conjunctivae: conjunctivae normal Sclerae: sclerae normal Corneas: corneas normal Pupils: Equal, round and reactive pupils present EOM: EOMs intact bilaterally Neck Neck: Yes full ROM Resp Effort & Inspection: normal respiratory effort, able to speak in complete sentences, no audible wheezes and not labored Auscultation: clear to auscultation bilaterally Cardio Rate: regular rate Rhythm: regular rhythm GI Inspection: No distended Palpation (GI): Soft to palpation, not firm, nontender, no guarding and not rigid Auscultation: normoactive bowel sounds Skin General skin exam: no rashes or lesions noted and elasticity normal Neuro General: patient oriented x3 Cranial nerves: Yes CN's II-XII intact bilaterally, Yes Equal, round and reactive pupils present and Yes Bilaterally intact EOM present Cognition (Neuro): normal cognition Extrem Other: Moving all extremities well without any obvious deformities Course Reevaluation(s) Reevaluation #1: Patient's labs significant for a metabolic acidosis. Likely alcoholic ketosis. This was treated with IV fluids and PO thiamine. Patient signed out to night team pending care team consult and sober re-evaluation Time: 01:20 Medications Administered Discontinued Medications Generic Name Dose Route Start Last Admin Trade Name Carlos PRN Reason Stop Dose Admin Sodium Chloride 1,000 mls @ 999 mls/hr 05/08/22 23:00 05/09/22 01:00 Ns IV 05/09/22 00:00 999 mls/hr .Q1H1M GHASSAN Administration Ondansetron HCl 4 mg 05/08/22 22:08 05/08/22 22:18 Ondansetron Odt 4 Mg Tab.Rapdis TRANSLINGU 05/08/22 22:09 4 mg ONCE ONE Administration Thiamine HCl 100 mg 05/08/22 23:00 05/09/22 01:00 Thiamine Hcl 100 Mg Tablet PO 05/08/22 23:01 100 mg ONCE ONE Administration Medical Decision Making Medical Decision Making MDM Narrative: Binge drinking for last 5 days. She complains of nausea. We will check labs including lipase. Patient medicated with ODT Zofran. Will have the patient evaluated by the care team given her current depression and alcoholism Differential Diagnosis Alcohol abuse polysubstance abuse Pancreatitis Acute alcohol intoxication Alcohol withdrawal Anxiety Depression Lab Data 05/08/22 22:30 05/08/22 22:30 Labs: Lab Results 05/08/22 05/08/22 Range/Units 22:30 22:30 WBC 4.4 L (4.8-10.8) X10*3/uL RBC 4.63 (4.20-5.50) X10*6/uL Hgb 13.0 (12.0-16.0) g/dl Hct 37.8 (37.0-47.0) % MCV 81.6 (80.0-98.0) fL MCH 28.1 (27.0-33.0) pg MCHC 34.4 (31.0-35.0) g/dl RDW 17.2 H (11.0-16.0) % Plt Count 116 L D (160-400) X10*3/uL MPV 9.8 (9.4-12.3) fL Immature Gran % (Auto) 0.2 (0.0-0.4) % Neut % (Auto) 50.3 (45-73) % Lymph % (Auto) 39.6 (20-40) % [place] % (Auto) 8.7 (2-11) % Eos % (Auto) 0.5 (0-4) % Baso % (Auto) 0.7 (0-2) % Lymph # (Auto) 1.7 (1.2-4.9) X10*3/uL [place] # (Auto) 0.4 (0.1-1.2) X10*3/uL Eos # (Auto) 0.0 (0.0-0.4) X10*3/uL Baso # (Auto) 0.0 (0.0-0.2) X10*3/uL Abs Immat Gran (auto) 0.01 (0.00-0.03) X10*3/uL Absolute Neuts (auto) 2.2 (2.0-8.3) x10*3/uL Absolute Nucleated RBC 0.000 (0.0-0.012) X10*3/uL Nucleated RBC % (auto) 0.0 (0.0-0.2) /100WBC Sodium 138 (135-145) mmol/L Potassium 3.3 D (3.3-5.1) mmol/L Chloride 96 (96-108) mmol/L Carbon Dioxide 18 L (22-29) mmol/L Anion Gap 27 H (12-20) BUN 9 (9-16) mg/dL Creatinine 0.49 L (0.5-1.4) mg/dL Estim Creat Clear Calc 121.9 Estimated GFR > 60 Random Glucose 77 (60-115) mg/dL Calcium 8.2 L D (8.4-10.2) mg/dL Magnesium 2.1 (1.6-2.6) mg/dL Total Bilirubin 0.8 (0.0-1.0) mg/dL AST 297 H (5-31) U/L ALT 106 H (0-31) U/L Alkaline Phosphatase 160 H (39-117) U/L Total Protein 7.4 (6.5-8.0) g/dL Albumin 4.4 (3.5-5.0) g/dL Lipase 39 (8-78) U/L Ethyl Alcohol 496 H* mg/dL Discharge Plan Discharge Clinical Impression: Alcohol abuse, Depression Patient Disposition: Still a Patient Prescriptions: No Action sertraline 25 mg tablet 50 mg PO DAILY Qty: 90 1RF thiamine mononitrate (vit B1) 100 mg tablet 100 mg PO DAILY Qty: 30 0RF tramadol 50 mg tablet 50 mg PO DAILY PRN (Reason: pain) 7 Days Qty: 7 0RF meloxicam 15 mg tablet 15 mg PO DAILY PRN (Reason: pain, moderate) 15 Days Qty: 15 2RF melatonin 5 mg Tablet 5 mg PO BEDTIME PRN (Reason: Sleep) cholecalciferol (vitamin D3) 25 mcg (1,000 unit) Tablet 25 mcg PO DAILY folic acid 1 mg tablet 1 mg PO DAILY Qty: 30 0RF vitamin B complex [B Complex-Vitamin B12] Tablet 1 tab PO DAILY Qty: 30 0RF magnesium oxide 400 mg (241.3 mg magnesium) Tablet 400 mg PO BIDPC Qty: 60 0RF ondansetron 4 mg tablet,disintegrating 4 mg PO Q8H PRN (Reason: Nausea) omeprazole 20 mg capsule,delayed release(DR/EC) 20 mg PO DAILY 30 Days Qty: 30 3RF hydroxyzine HCl 25 mg tablet 25 mg PO BEDTIME 30 Days Qty: 30 3RF acetaminophen [Tylenol Arthritis Pain] 650 mg tablet extended release 650 mg PO Q12H 30 Days Qty: 60 3RF cholecalciferol (vitamin D3) 1,250 mcg (50,000 unit) capsule 0 mcg PO Interventions: [place]-Suicide Risk Severity Scale Last Done: 05/08/22 23:39
[2022-05-08] MEDS: Ondansetron ODT 4 MG TAB.RAPDIS TRANSLINGU (22:18)
[2022-05-08 22:55] LABS: Alanine Aminotransferase 106 U/L (0-31); Albumin Level 4.4 g/dL (3.5-5.0); Alkaline Phosphatase 160 U/L (39-117); Anion Gap 27 (12-20); Aspartate Amino Transferase 297 U/L (5-31); Bilirubin Total 0.8 mg/dL (0.0-1.0); Blood Urea Nitrogen 9 mg/dL (9-16); Calcium 8.2 mg/dL (8.4-10.2); Carbon Dioxide 18 mmol/L (22-29); Chloride 96 mmol/L (96-108); Creatinine Clr Calc Pharmacy 121.9; Estimated Glomerular Filt Rate > 60; Ethanol 496 mg/dL; Glucose Random 77 mg/dL (60-115); Lipase 39 U/L (8-78); Magnesium 2.1 mg/dL (1.6-2.6); Potassium 3.3 mmol/L (3.3-5.1); Sodium 138 mmol/L (135-145); Total Protein 7.4 g/dL (6.5-8.0)
[2022-05-08 22:56] LABS: Imm Gran Abs Auto 0.01 X10*3/uL (0.00-0.03); Imm Gran Pct Auto 0.2 % (0.0-0.4); PLT CLUMP 1; Red Cell Distribution Width 17.2 % (11.0-16.0); SCAN SMEAR FLAG 1
[2022-05-08 22:58] LABS: Basophils Percent Auto 0.7 % (0-2); Eosinophils Percent Auto 0.5 % (0-4); Hematocrit 37.8 % (37.0-47.0); Lymphocytes Absolute Auto 1.7 X10*3/uL (1.2-4.9); Lymphocytes Percent Auto 39.6 % (20-40); Mean Corpuscular HGB Conc 34.4 g/dl (31.0-35.0); Mean Corpuscular Hemoglobin 28.1 pg (27.0-33.0); Mean Corpuscular Volume 81.6 fL (80.0-98.0); Mean Platelet Volume 9.8 fL (9.4-12.3); Monocytes Absolute Auto 0.4 X10*3/uL (0.1-1.2); Monocytes Percent Auto 8.7 % (2-11); Neutrophils Absolute Auto 2.2 x10*3/uL (2.0-8.3); Neutrophils Percent Auto 50.3 % (45-73); Red Blood Count 4.63 X10*6/uL (4.20-5.50)
[2022-05-08 23:04] LABS: Platelet Count 116 X10*3/uL (160-400); White Blood Count 4.4 X10*3/uL (4.8-10.8)
[2022-05-08 23:05] LABS: MANUAL DIFF FLAG NO
[2022-05-08 23:39] VITALS: BP 121/80; PULSE 129; RESP 20; TEMP 35.5; O2SAT 100
--- NOTE | 2022-05-09 00:07 | PC.NURSE ---
Patient alert and oriented. CIWA 4 at this time provider made aware. Patient notes she drank for 5 days and has not eaten since. Patient reports she is not interested in detox. Will continue with plan of care.
[2022-05-09] MEDS: Thiamine HCL 100 MG TABLET PO (01:00)
[2022-05-09] MEDS: 0.9 % Sodium Chloride 1,000 ML 999 ML IV ×2 (01:00→06:12)
[2022-05-09 01:32] VITALS: BP 126/74; PULSE 74; RESP 16; TEMP 36.4; O2SAT 98
[2022-05-09] MEDS: Famotidine/PF 20 MG/2 ML VIAL IVPUSH (06:12)
[2022-05-09] MEDS: LORazepam 2 MG/ML VIAL IVPUSH (06:12)
[2022-05-09] MEDS: ondansetron HCL 4 MG/2 ML VIAL IVPUSH (06:12)
--- NOTE | 2022-05-09 06:15 | PC.NURSE ---
Patient CIWA 5, provider notified . Administered medications as per MAR. Patient resting quietly. Will continue with plan of care.
--- NOTE | 2022-05-09 09:05 | MHC.RECOVRN ---
Met with pt in [facility] after consult placed to CARE Team for alcohol use. Pt reports drinking 10 nips daily x 11 days. Pt reports last drink prior to that was 6 weeks ago. Pt recently [facility] to [facility] by son and maintained recovery for 2 weeks after discharge. Pts longest periods of recovery were during pregnancies. Pt has personal health coach and plans to follow up after dc from [facility]. Pt declines ATS/recovery support at this time, would like to return home and stay sober. Discussed risks of alcohol withdrawal at home, pt verbalizes understanding. Denies questions or concerns for t/w. RN aware.
[2022-05-09 11:01] VITALS: BP 130/82; PULSE 100; RESP 16; O2SAT 98
[2022-05-09] MEDS: LORazepam 1 MG TABLET 2 MG PO (11:06)
== END 2022-05-09 11:28 | disposition home or self-care (01) ==
PROVIDERS: Physician Assistant; Emergency Provider Internal Medicine; PCP Physician Assistant
DX: F10.229 Alcohol dependence with intoxication, unspecified (principal); Y90.8 Blood alcohol level of 240 mg/100 ml or more; R11.0 Nausea; Z87.891 Personal history of nicotine dependence; Z79.899 Other long term (current) drug therapy
CPT/HCPCS: 36415; 80053; 82077; 83690; 83735; 85025; 96361; 96374; 96375; 99285; J2060; J2405

== ENCOUNTER 2022-08-24 02:43 | Inpatient (IN) | payer OTHER, SELFPAY ==
[2022-08-24] VITALS (9 sets, daily range): BP systolic 116–137; BP diastolic 63–97; PULSE 71–121; RESP 17–22; TEMP 36–36.8; O2SAT 95–98; BMI 22.6; BMI 17.7
--- NOTE | 2022-08-24 03:22 | ED.ABDPAIN ---
HPI - Abdominal Pain General Chief Complaint: Abdominal Pain Stated Complaint: nausea/vomitting Time Seen by Provider: 08/24/22 03:13 Source: patient Mode of arrival: EMS Limitations: no limitations History of Present Illness HPI narrative: Patient comes to the emergency room complaining of ?pancreatitis?. Patient states that she has had pancreatitis in the past. However, patient is putting out her left lower quadrant, not epigastric area. I reviewed patient's records, she does have history of diverticulitis and pelvic abscess. Patient denies any blood in stool. Patient complaining of nausea vomiting, no diarrhea, no fever chills. Patient states that she admits to drinking alcohol heavily daily. States that she feels like she is withdrawing. Related Data Allergies Allergy/AdvReac Type Severity Reaction Status Date / Time amoxicillin [From Augmentin] Allergy Intermediate Abdominal Verified 01/26/22 10:54 Pain clavulanic acid Allergy Intermediate Abdominal Verified 01/26/22 10:54 [From Augmentin] Pain Sulfa (Sulfonamide Allergy Mild RASH Verified 01/26/22 10:54 Antibiotics) [SULFA (SULFONAMIDE ANTIBIOTICS)] magnesium AdvReac Diarrhea Verified 01/26/22 10:54 Review of Systems Review of Systems Constitutional : No Weight loss, No Fever, No Chills, No Night Sweats, No Fatigue, No Malaise ENT/Mouth : No Hearing loss, No Ear Pain, No Nasal Congestion, No Sinus Pain, No Hoarseness, No sore throat, No Rhinorrhea, No Swallowing Difficulty Eyes: No Eye Pain, No Swelling, No Redness, No Foreign Body, No Discharge, No Vision Changes Cardiovascular : No Chest Pain, No SOB, No Dyspnea on Exertion, No Orthopnea, No Edema, No Palpitations Respiratory : No Cough, No Sputum, No Wheezing, No Smoke Exposure, No Dyspnea Gastrointestinal : No Nausea, No Vomiting, No Diarrhea, No Constipation, complaining of epigastric and left lower quadrant pain Genitourinary : no irregular bleeding, No Dysuria, No Urinary Frequency, No Hematuria, No Urinary Incontinence, No Urgency, No Flank Pain, No Urinary Flow Changes, No Hesitancy Musculoskeletal : No joint pain, No Myalgias, No Joint Swelling Skin : No Skin Lesions, No rash Neuro : No Weakness, No Numbness, No Paresthesias, No Loss of Consciousness, No Dizziness, No Headache Psych : No Anxiety/Panic, No Depression, No SI/HI/AH/VH, No Social Issues, Heme/Lymph: No Bruising, No Bleeding,No Lymphadenopathy Endocrine : No Polyuria, No Polydipsia, No Temperature Intolerance [facility] Past Medical History Medical History Alcohol abuse Anxiety Diverticulitis Pelvic abscess in female Pelvic abscess in female Surgical History No pertinent past surgical history Family History Family History Father Medical history unknown Mother Medical history unknown Paternal Grandfather Cancer Sister Epilepsy Daughter In good health Son In good health Social History Social History Household Members: None Housing: Apartment Do you presently have visiting nurse or other home services: No Alcohol intake: never Patient Tobacco Use Status: Former Tobacco user Quit Date: 2006 Tobacco use type: Cigarette Smoked in Last 30 Days: No e-Cigarette/Vaping Use: Former Use Second Hand Smoke Exposure: No Use of substances other than those prescribed or required for medical reasons: No Advance Directives: Yes Advance Directives on File: Yes Advance Directives Date on File: 01/25/21 service: No Current occupational status: unemployed Cognitive needs: No Hearing needs: No Vision needs: No Physical Exam ED Vital Signs: Vital Signs - 24 hr 08/24/22 02:50 08/24/22 04:48 08/24/22 05:45 Temperature 98 F 98.3 F 97.4 F Pulse Rate 113 H 111 H 108 H Respiratory Rate 18 20 18 Blood Pressure 132/94 H 116/83 118/63 Pulse Oximetry 96 95 95 Oxygen Delivery Method Room Air Room Air Room Air 08/24/22 06:19 08/24/22 07:06 08/24/22 07:09 Temperature 98.1 F 98.1 F Pulse Rate 121 H 115 H Respiratory Rate 20 17 22 H Blood Pressure 137/97 H 122/77 Pulse Oximetry 97 96 Oxygen Delivery Method Room Air Room Air BMI result Body Mass Index 22.6 Const Other: Appearance: Alert. Oriented X3. Seems uncomfortable Eyes: Pupils equal, round and reactive to light. ENT: Pharynx normal. Neck: Normal inspection. Neck supple. No lymph nodes noted. No crepitus CVS: Normal heart rate and rhythm. Pulses normal. Normal S1 and S2 Respiratory: No respiratory distress. Breath sounds normal. No Wheezing. No rales Abdomen: Soft, tenderness to palpation left lower quadrant and periumbilical area. No guarding, no rebound Skin: Skin warm and dry. Normal skin color. Normal skin turgor. Extremities: No lower extremity edema. No Lacerations. No Rash Neuro: Oriented X 3. No motor deficit. No sensory deficit. Moving all extremities. No slurred speech. CN 2 through 12 grossly intact Psych: calm, cooperative, very anxious Course Course Course Narrative: -all of patient's labs and imaging pending -patient receiving IV fluids, Zofran, morphine. Medical Decision Making Medical Decision Making [facility] Narrative: -my interpretation of CT scan: No obstruction - -radiologist interpretation CT scan, mild pancolitis. Patient was given IV fluids, patient was given morphine. Also, patient was given the 1st dose of antibiotics p.o.. -we attempted to send the patient home. However, patient started vomiting again, vomited the medications out. Patient was switched to IV medications -patient complaining of worsening left lower quadrant pain. -I discussed the patient with Dr. Fuentes, patient will be admitted Differential Diagnosis Differential Diagnoses: The differential diagnosis associated with the presentation includes (Colitis, diverticulitis, ovarian cyst) Admission/Observation Consideration of admission/observation: Escalation of care including admission/observation considered Consult Healthcare Provider Management of the patient was discussed with: Hospitalist Lab Data [facility] Lab Attestation statement: I reviewed the patient's lab results. 08/24/22 03:40 08/24/22 03:40 Labs: Lab Results 08/24/22 08/24/22 08/24/22 Range/Units 03:40 03:40 03:40 WBC 4.0 L (4.8-10.8) X10*3/uL RBC 3.60 L D (4.20-5.50) X10*6/uL Hgb 11.0 L (12.0-16.0) g/dl Hct 31.3 L (37.0-47.0) % MCV 86.9 (80.0-98.0) fL MCH 30.6 (27.0-33.0) pg MCHC 35.1 H (31.0-35.0) g/dl RDW 14.0 (11.0-16.0) % Plt Count 132 L (160-400) X10*3/uL MPV 9.0 L (9.4-12.3) fL Immature Gran % (Auto) 0.3 (0.0-0.4) % Neut % (Auto) 44.3 L (45-73) % Lymph % (Auto) 34.0 (20-40) % [place] % (Auto) 19.3 H (2-11) % Eos % (Auto) 1.3 (0-4) % Baso % (Auto) 0.8 (0-2) % Lymph # (Auto) 1.4 (1.2-4.9) X10*3/uL [place] # (Auto) 0.8 (0.1-1.2) X10*3/uL Eos # (Auto) 0.1 (0.0-0.4) X10*3/uL Baso # (Auto) 0.0 (0.0-0.2) X10*3/uL Abs Immat Gran (auto) 0.01 (0.00-0.03) X10*3/uL Absolute Neuts (auto) 1.8 L (2.0-8.3) x10*3/uL Absolute Nucleated RBC 0.000 (0.0-0.012) X10*3/uL Nucleated RBC % (auto) 0.0 (0.0-0.2) /100WBC Sodium 135 (135-145) mmol/L Potassium 2.8 L (3.3-5.1) mmol/L Chloride 93 L (96-108) mmol/L Carbon Dioxide 20 L (22-29) mmol/L Anion Gap 25 H (12-20) BUN 5 L (9-16) mg/dL Creatinine 0.48 L (0.5-1.4) mg/dL Estim Creat Clear Calc 140.0 Estimated GFR > 60 Random Glucose 111 (60-115) mg/dL Calcium 8.0 L (8.4-10.2) mg/dL Magnesium 1.1 L* (1.6-2.6) mg/dL Total Bilirubin 1.1 H (0.0-1.0) mg/dL Direct Bilirubin 0.4 (0.0-0.5) mg/dL AST 145 H (5-31) U/L ALT 33 H (0-31) U/L Alkaline Phosphatase 125 H (39-117) U/L Total Protein 6.6 (6.5-8.0) g/dL Albumin 3.5 (3.5-5.0) g/dL Lipase 20 (8-78) U/L Urine Color Urine Appearance Urine pH (5.0-9.0) Ur Specific [place] (1.005-1.025) Urine Protein (Neg-Trace) mg/dL Urine Glucose (UA) (Negative) mg/dL Urine Ketones (Negative) mg/dL Urine Blood (Negative) Urine Nitrite (Negative) Ur Leukocyte Esterase (Negative) Urine RBC (0-2) /HPF Urine WBC (0-5) /HPF Ur Squamous Epith Cells (0-2) /HPF Urine Bacteria (None Seen) Hyaline Casts (0-2) /LPF Ethyl Alcohol 251 mg/dL 08/24/22 08/24/22 Range/Units 05:22 06:38 WBC (4.8-10.8) X10*3/uL RBC (4.20-5.50) X10*6/uL Hgb (12.0-16.0) g/dl Hct (37.0-47.0) % MCV (80.0-98.0) fL MCH (27.0-33.0) pg MCHC (31.0-35.0) g/dl RDW (11.0-16.0) % Plt Count (160-400) X10*3/uL MPV (9.4-12.3) fL Immature Gran % (Auto) (0.0-0.4) % Neut % (Auto) (45-73) % Lymph % (Auto) (20-40) % [place] % (Auto) (2-11) % Eos % (Auto) (0-4) % Baso % (Auto) (0-2) % Lymph # (Auto) (1.2-4.9) X10*3/uL [place] # (Auto) (0.1-1.2) X10*3/uL Eos # (Auto) (0.0-0.4) X10*3/uL Baso # (Auto) (0.0-0.2) X10*3/uL Abs Immat Gran (auto) (0.00-0.03) X10*3/uL Absolute Neuts (auto) (2.0-8.3) x10*3/uL Absolute Nucleated RBC (0.0-0.012) X10*3/uL Nucleated RBC % (auto) (0.0-0.2) /100WBC Sodium (135-145) mmol/L Potassium (3.3-5.1) mmol/L Chloride (96-108) mmol/L Carbon Dioxide (22-29) mmol/L Anion Gap (12-20) BUN (9-16) mg/dL Creatinine (0.5-1.4) mg/dL Estim Creat Clear Calc Estimated GFR Random Glucose (60-115) mg/dL Calcium (8.4-10.2) mg/dL Magnesium 1.8 (1.6-2.6) mg/dL Total Bilirubin (0.0-1.0) mg/dL Direct Bilirubin (0.0-0.5) mg/dL AST (5-31) U/L ALT (0-31) U/L Alkaline Phosphatase (39-117) U/L Total Protein (6.5-8.0) g/dL Albumin (3.5-5.0) g/dL Lipase (8-78) U/L Urine Color Yellow Urine Appearance Clear Urine pH 7.0 (5.0-9.0) Ur Specific [place] >= 1.030 H (1.005-1.025) Urine Protein Trace (Neg-Trace) mg/dL Urine Glucose (UA) Negative (Negative) mg/dL Urine Ketones Trace (Negative) mg/dL Urine Blood Negative (Negative) Urine Nitrite Negative (Negative) Ur Leukocyte Esterase Trace H (Negative) Urine RBC 0-2 (0-2) /HPF Urine WBC 0-5 (0-5) /HPF Ur Squamous Epith Cells 3-5 (0-2) /HPF Urine Bacteria 2+ (None Seen) Hyaline Casts 3-5 (0-2) /LPF Ethyl Alcohol mg/dL Radiology Impression Discussion of test interpretation with radiology: I have reviewed the radiologist's reading. Radiologist Impression: FINDINGS: LUNG BASES: The visualized lung bases are unremarkable.? LIVER, GALLBLADDER, AND BILIARY TREE: Liver is normal in size. Severe diffuse hepatic steatosis. No intra or extra hepatic biliary dilatation. The gallbladder is unremarkable with no evidence of radiopaque gallstones, gallbladder wall thickening, or obvious pericholecystic inflammatory changes.? PANCREAS: Unremarkable.? SPLEEN: Unremarkable.? ADRENAL GLANDS: Unremarkable.? KIDNEYS AND URETERS: The kidneys are normal in size, shape, and attenuation. Simple appearing cyst in the upper pole of left kidney. No follow-up imaging recommended. No hydronephrosis, hydroureter, or calculi seen. No perinephric stranding. ? BLADDER: Unremarkable.? GASTROINTESTINAL TRACT: The colon is underdistended, limiting assessment, however there does appear to be diffuse submucosal edema throughout the entirety of the colon suggesting mild pancolitis. Scattered colonic diverticula, most concentrated within the sigmoid colon. No evidence of diverticulitis. Small sliding-type hiatal hernia. Stomach otherwise unremarkable. Normal small bowel. Normal appendix.? ABDOMINAL WALL: No significant hernia is appreciated.? LYMPH NODES: Normal. VASCULAR: Unremarkable. PELVIC VISCERA: The left ovary is enlarged by 1 or 2 cysts measuring up to 4.8 cm in total. These cysts were present on the prior examination, however have increased in size since then. These were not present on the prior examination from November 2021. Normal right ovary. Normal uterus.? OSSEOUS STRUCTURES: No acute or suspicious osseous abnormalities.? CT/CT abdomen pelvis w IV con IMPRESSION: *? Findings suggestive of mild pancolitis. *? Severe diffuse hepatic steatosis. *? Left ovarian cysts measuring up to 4.8 cm in total, increased in size since the prior examination. If these were purely physiologic, they would have been expected to resolve since February 2022. Recommend nonemergent pelvic ultrasound for further evaluation. *? Scattered colonic diverticula without evidence of diverticulitis. Medications Administered Discontinued Medications Generic Name Dose Route Start Last Admin Trade Name Freq PRN Reason Stop Dose Admin Magnesium Sulfate 2 gm in 50 mls @ 25 mls/hr 08/24/22 04:05 08/24/22 07:04 Magnesium Sulfate/H2o IV 08/24/22 06:04 Infused ONCE ONE Infusion Iohexol 85 ml 08/24/22 04:30 08/24/22 04:31 Iohexol 350 Mg/Ml 100 Ml Infus..Btl IV 08/24/22 04:31 85 ml ONCE ONE Administration Levofloxacin 500 mg 08/24/22 05:54 08/24/22 06:05 Levofloxacin 500 Mg Tablet PO 08/24/22 05:55 500 mg ONCE ONE Administration Metronidazole 500 mg 08/24/22 05:55 08/24/22 06:05 Metronidazole 500 Mg Tablet PO 08/24/22 05:56 500 mg ONCE ONE Administration Morphine Sulfate 4 mg 08/24/22 03:21 08/24/22 03:44 Morphine Sulfate 4 Mg/Ml Cartridge IVPUSH 08/24/22 03:22 4 mg ONCE ONE Administration Protocol Morphine Sulfate 4 mg 08/24/22 07:03 08/24/22 07:09 Morphine Sulfate 4 Mg/Ml Cartridge IVPUSH 08/24/22 07:04 4 mg ONCE ONE Administration Protocol Ondansetron HCl 4 mg 08/24/22 03:21 08/24/22 03:44 Ondansetron Hcl 4 Mg/2 Ml Vial IVPUSH 08/24/22 03:22 4 mg ONCE ONE Administration Ondansetron HCl 4 mg 08/24/22 05:33 08/24/22 05:45 Ondansetron Hcl 4 Mg/2 Ml Vial IVPUSH 08/24/22 05:34 4 mg ONCE ONE Administration Prochlorperazine Edisylate 5 mg 08/24/22 07:03 08/24/22 07:09 Prochlorperazine Edisylate 10 Mg/2 Ml Vial IVPUSH 08/24/22 07:04 5 mg ONCE ONE Administration Critical Care Time Critical Care Time Critical Care Time: Yes Total Critical Care Time: 60 Attestation: I have personally provided critical care time. Time includes review of lab data, radiology results, discussion with consultants, and monitoring for potential decompensation. Intervention performed as documented. Discharge Plan Discharge Clinical Impression: Pancolitis Patient Disposition: Admitted As Inpatient Prescriptions: No Action sertraline 25 mg tablet 50 mg PO DAILY Qty: 90 1RF thiamine mononitrate (vit B1) 100 mg tablet 100 mg PO DAILY Qty: 30 0RF tramadol 50 mg tablet 50 mg PO DAILY PRN (Reason: pain) 7 Days Qty: 7 0RF meloxicam 15 mg tablet 15 mg PO DAILY PRN (Reason: pain, moderate) 15 Days Qty: 15 2RF melatonin 5 mg Tablet 5 mg PO BEDTIME PRN (Reason: Sleep) cholecalciferol (vitamin D3) 25 mcg (1,000 unit) Tablet 25 mcg PO DAILY folic acid 1 mg tablet 1 mg PO DAILY Qty: 30 0RF vitamin B complex [B Complex-Vitamin B12] Tablet 1 tab PO DAILY Qty: 30 0RF magnesium oxide 400 mg (241.3 mg magnesium) Tablet 400 mg PO BIDPC Qty: 60 0RF ondansetron 4 mg tablet,disintegrating 4 mg PO Q8H PRN (Reason: Nausea) omeprazole 20 mg capsule,delayed release(DR/EC) 20 mg PO DAILY 30 Days Qty: 30 3RF hydroxyzine HCl 25 mg tablet 25 mg PO BEDTIME 30 Days Qty: 30 3RF acetaminophen [Tylenol Arthritis Pain] 650 mg tablet extended release 650 mg PO Q12H 30 Days Qty: 60 3RF cholecalciferol (vitamin D3) 1,250 mcg (50,000 unit) capsule 0 mcg PO
--- NOTE | 2022-08-24 03:48 | MHC.EDTECH ---
This tech was asked to draw labs due to being a hard stick, labs were obtained. This tech noticed patients heart rate was elevated at 120, nuclear monitoring technician was then placed,and AMMON Warner was notified. Call anguiano was placed in reach
--- NOTE | 2022-08-24 07:02 | PC.NURSE ---
resumed care of pt this am. She is currently complaining of 10/10 LLQ pain, provider made aware. She is a/ox4, offers no other complaints at this time. Will await further orders at this time
[2022-08-24] MEDS: Prochlorperazine Edisylate 10 MG/2 ML VIAL 5 MG IVPUSH (07:09)
[2022-08-24] MEDS: Morphine Sulfate 4 MG/ML CARTRIDGE IVPUSH (07:09)
--- NOTE | 2022-08-24 07:13 | PC.NURSE ---
pt medicated for pain/nausea. Provider at bedside to alert the patient of admission. CIWA performed, pt reports she has withdraw before but denies seizures.
--- NOTE | 2022-08-24 07:16 | PM.IMHP ---
History of Present Illness Date of Service: 08/24/22 Chief Complaint: Abominal Pain 42-year-old female with pertinent history of alcohol use disorder, generalized anxiety disorder, celiac disease, history of ovarian abscess, diverticular disease, last colonoscop and EGD 03/14 presenting with moderate to severe abdominal pain most porominent in the left lower quadrant, ongoing for about a week, associated with nause and vomitting. CT show mild pancolitis, ovarian cyst, normal WBC, K 2.8, mag 1.1. She has been treated with Levaquin and Flagyl, and was attempted to be discharged but cotinues to have nausea and vomitting and hence admission. Review of Systems Review of Systems: Gen: no fever Resp: no sob, no cough CV: no chest, no HANNAH, no leg edema GI:+ No n/v, + no abd pain Neuro: No confusion Yes all other systems are reviewed and are negative COUNTS INCLUDE 234 BEDS AT THE [facility] Medical History (Updated 08/24/22 @ 07:20 by James Simon MD) Alcohol abuse Anxiety Diverticulitis Pelvic abscess in female Family History Father Medical history unknown Mother Medical history unknown Paternal Grandfather Cancer Sister Epilepsy Daughter In good health Son In good health Surgical History No pertinent past surgical history Social History Household Members: None Housing: Apartment Do you presently have visiting nurse or other home services: No Alcohol intake: never Patient Tobacco Use Status: Former Tobacco user Quit Date: 2006 Tobacco use type: Cigarette Smoked in Last 30 Days: No e-Cigarette/Vaping Use: Former Use Second Hand Smoke Exposure: No Use of substances other than those prescribed or required for medical reasons: No Advance Directives: Yes Advance Directives on File: Yes Advance Directives Date on File: 01/25/21 Nutrition Risks: No Nutritional Risk service: No Current occupational status: unemployed Cognitive needs: No Hearing needs: No Vision needs: No Meds Allergies Allergy/AdvReac Type Severity Reaction Status Date / Time amoxicillin [From Augmentin] Allergy Intermediate Abdominal Verified 01/26/22 10:54 Pain clavulanic acid Allergy Intermediate Abdominal Verified 01/26/22 10:54 [From Augmentin] Pain Sulfa (Sulfonamide Allergy Mild RASH Verified 01/26/22 10:54 Antibiotics) [SULFA (SULFONAMIDE ANTIBIOTICS)] magnesium AdvReac Diarrhea Verified 01/26/22 10:54 Active Medications: Current Medications Metronidazole (Flagyl) 500 mg in 100 mls @ 100 mls/hr IV ONCE ONE Stop: 08/24/22 08:07 Levofloxacin (Levaquin) 500 mg in 100 mls @ 100 mls/hr IV ONCE ONE Stop: 08/24/22 08:07 Sodium Chloride (Ns) 1,000 mls @ 999 mls/hr IVCONT .Q1H1M ONE Stop: 08/24/22 08:12 Pharmacy Consult (Consult Rx Perform Med Rec) 1 each MISCELLANE ONCE PRN PRN Reason: Consult order Pharmacy Consult (Consult Rx Etoh Phenob Im/Po) 1 each MISCELLANE ONCE PRN; Protocol PRN Reason: Consult order Home Medications Medication Instructions Recorded Confirmed Last Taken Type clonidine HCl 0.1 mg tablet 0.1 mg PO TID PRN Anxiety 08/24/22 08/24/22 Unknown History multivitamin 1 tab PO DAILY 08/24/22 08/24/22 Unknown History naltrexone 50 mg tablet 50 mg PO DAILY 08/24/22 08/24/22 Unknown History pantoprazole 40 mg tablet,delayed 40 mg PO DAILY 08/24/22 08/24/22 Unknown History release propranolol 10 mg tablet 30 mg PO TID PRN Anxiety 08/24/22 08/24/22 Unknown History sertraline 50 mg tablet 50 mg PO DAILY 08/24/22 08/24/22 Unknown History Physical Exam Vital Signs and Narrative: Vital Signs: Last Vital Signs Temp 98.1 F 08/24/22 07:06 Pulse 115 H 08/24/22 07:06 Resp 22 H 08/24/22 07:09 BP 122/77 08/24/22 07:06 Pulse Ox 96 08/24/22 07:06 O2 Del Method Room Air 08/24/22 07:06 BMI result Body Mass Index 22.6 Const: Other: Constitutional: Alert, in no distress, overweight. Mental Status: Oriented to person, place and time. Eyes: Pupils are equal, round and reactive to light. Ear, Nose and Throat: Oropharynx clear, mucous membranes moist. Respiratory: Clear to auscultation. No wheezing, rales or rhonchi. Cardiovascular: S1 S2 regular. No murmurs, rubs or gallops. Gastrointestinal: Abdomen soft, non-tender, non-distended. Normal bowel sounds.? Neurologic: Cranial nerves II-XII grossly intact. No focal neurological deficits. Moves all extremities spontaneously.? Skin: No rashes or lesions.? Musculoskeletal: No cyanosis or clubbing. Psychiatric: Normal mood and affect? Results Labs 08/24/22 03:40 08/24/22 03:40 Labs: Laboratory Results - last 24 hr 08/24/22 08/24/22 08/24/22 03:40 03:40 03:40 MCV 86.9 MCH 30.6 MCHC 35.1 H RDW 14.0 Plt Count 132 L MPV 9.0 L Immature Gran % (Auto) 0.3 Neut % (Auto) 44.3 L Lymph % (Auto) 34.0 [place] % (Auto) 19.3 H Eos % (Auto) 1.3 Baso % (Auto) 0.8 Lymph # (Auto) 1.4 [place] # (Auto) 0.8 Eos # (Auto) 0.1 Baso # (Auto) 0.0 Abs Immat Gran (auto) 0.01 Absolute Neuts (auto) 1.8 L Absolute Nucleated RBC 0.000 Nucleated RBC % (auto) 0.0 Anion Gap 25 H Estim Creat Clear Calc 140.0 Estimated GFR > 60 Random Glucose 111 Calcium 8.0 L Magnesium 1.1 L* Total Bilirubin 1.1 H Direct Bilirubin 0.4 AST 145 H ALT 33 H Alkaline Phosphatase 125 H Total Protein 6.6 Albumin 3.5 Lipase 20 Urine Color Urine Appearance Urine pH Ur Specific [place] Urine Protein Urine Glucose (UA) Urine Ketones Urine Blood Urine Nitrite Ur Leukocyte Esterase Urine RBC Urine WBC Ur Squamous Epith Cells Urine Bacteria Hyaline Casts Ethyl Alcohol 251 08/24/22 08/24/22 05:22 06:38 MCV MCH MCHC RDW Plt Count MPV Immature Gran % (Auto) Neut % (Auto) Lymph % (Auto) [place] % (Auto) Eos % (Auto) Baso % (Auto) Lymph # (Auto) [place] # (Auto) Eos # (Auto) Baso # (Auto) Abs Immat Gran (auto) Absolute Neuts (auto) Absolute Nucleated RBC Nucleated RBC % (auto) Anion Gap Estim Creat Clear Calc Estimated GFR Random Glucose Calcium Magnesium 1.8 Total Bilirubin Direct Bilirubin AST ALT Alkaline Phosphatase Total Protein Albumin Lipase Urine Color Yellow Urine Appearance Clear Urine pH 7.0 Ur Specific [place] >= 1.030 H Urine Protein Trace Urine Glucose (UA) Negative Urine Ketones Trace Urine Blood Negative Urine Nitrite Negative Ur Leukocyte Esterase Trace H Urine RBC 0-2 Urine WBC 0-5 Ur Squamous Epith Cells 3-5 Urine Bacteria 2+ Hyaline Casts 3-5 Ethyl Alcohol Imaging Radiologist's Impressions: Impressions Abdomen/Pelvis CT 08/24/22 04:36 IMPRESSION: * Findings suggestive of mild pancolitis. * Severe diffuse hepatic steatosis. * Left ovarian cysts measuring up to 4.8 cm in total, increased in size since the prior examination. If these were purely physiologic, they would have been expected to resolve since February 2022. Recommend nonemergent pelvic ultrasound for further evaluation. * Scattered colonic diverticula without evidence of diverticulitis. Assessment and Plan (1) Pancolitis: Status: Acute Plan 42/F with alcohol depdency, h/o TOA, anxiety do, diverticular disease here with abdominal pain, n/v and found to have mild pancolitis and CT unable to dc home d/t persistent nausea and vomitting Pancolitis--treat with Flagyl, Levaquin, IVF, advance diet as jasmin, consider gi consult severe Hypokalemia and HYpOmagnesemia--related to alcohol use desorder, replace K with IV and repeat, mag corrected Hepatic steatosis with elevated LFTs--likely from alcohol, cessation discussed Pancytopenia--due to chronic alcohol use and raymundo liver disease Alcohol use desorder--Phenobarbital to prevent full blown withdrawal, as she drinks rather heavily, addiction med consult Need for inpatient: pancolitis, not able to tolerate PO, severe Hypokalemia needs IV replacment and montoring dvt prophylaxis: early ambulation d/t pancytopenia Time Spent With Patient Time: Total time managing care of this patient today ____ minutes. Quality Stroke Does the patient have a stroke diagnosis?: No VTE Prior VTE?: No VTE Risk Level:: Medical - moderate - high VTE Device Contraindication: Treatment Not Indicated VTE Drug Contraindication: N/A - Med Ordered
--- NOTE | 2022-08-24 07:51 | PHA.MEDREC ---
Pharmacy Consult ? Medication Reconciliation Pharmacy has completed the medication reconciliation. Patient very poor historian, she named some medications that have not been filled since March, and when I asked her about that she told me she had excess at home . Went off claim history. Patient also states she takes a B1 vitamin and weekly vitamin D, but was unsure of the doses. Pt also states she hasn't taken anything in almost 3 weeks.
--- NOTE | 2022-08-24 07:56 | PC.NURSE ---
Admitting provider in to see pt, pt asking for pain medication, pt just received sarah claudio 30 minutes ago. Provider fine with NS running until changing to new fluid orders
[2022-08-24] MEDS: cloNIDine HCL 0.1 MG TABLET PO (09:47)
[2022-08-24] MEDS: Multivitamin TABLET 1 TAB PO (09:47)
[2022-08-24] MEDS: Naltrexone HCl 50 MG TABLET PO (09:47)
[2022-08-24] MEDS: Sertraline HCL 50 MG TABLET PO (09:47)
--- NOTE | 2022-08-24 10:25 | PC.NURSE ---
report given to M3 floor nurse.
--- NOTE | 2022-08-24 18:56 | PM.EVENT ---
Event Note Date of Service: 08/24/22 Event Note: GI Consult-Full note dictated Imp: Alcohol-induced hepatitis and celiac disease with resultant N/V, diarrhea, and abdominal discomfort. CT scan is negative except for some edema of the colon probably related to her EtOH and liver disease. There is no evidence of diverticulitis nor pancreatitis. Her colonoscopy in 02/2022 was negative for any signs of colitis as well. Rec: Supportive care. Check stool specimens if possible. Gluten-free diet. F/U labs in the AM with LFT's, PT/INR, and Ammonia level. I do not think she needs any steroids for the EtOH-induced hepatitis at this time. IV PPI until her N/V resolves. I don't think she needs an endoscopy nor colonoscopy at this time either. I advised patient to abstain from EtOH completely. Thanks Time Spent With Patient Time: Total time managing care of this patient today ____ minutes.
--- NOTE | 2022-08-24 21:54 | CONS_ITS ---
DATE OF SERVICE: 08/24/2022 REASON FOR CONSULTATION: Nausea, vomiting, alcohol-induced hepatitis, and diarrhea. HISTORY OF PRESENT ILLNESS: This has been obtained from the patient and medical record. The patient is a 42-year-old female with a long-standing history of chronic alcohol abuse, who has been drinking at least 10 nips of vodka daily. She has had previous hospitalizations both here and at [facility] for alcohol related problems. She does have underlying biopsy proven celiac disease with her most recent upper endoscopy and duodenal biopsies in February and June of this year, consistent with celiac disease on the duodenal biopsies. She had a colonoscopy in February with Dr. Lebron that was unremarkable. The patient reports that she has been drinking heavily recently and came in today due to persistent nausea, vomiting, abdominal discomfort, and some diarrhea. She did not have any hematemesis, coffee-grounds emesis, hematochezia, nor melena. She did not notice any jaundice. She does not think she had a fever. Due to persistent symptoms, she was admitted for further treatment. The patient denies any Tylenol nor NSAID use. Since admission here to the medical floor, she has had some continued vomiting and has only been eating or drinking a little bit. She did have some loose stools earlier today as well. Again, there has been no sign of bleeding. MEDICATIONS: At home included omeprazole, clonidine, naltrexone, vitamins, pantoprazole, propranolol, and sertraline. Her medications here in the hospital include clonidine, IV Flagyl, vitamins, naltrexone, phenobarbital, propranolol, and sertraline. PAST MEDICAL HISTORY: History of diverticulitis with abscess that was drained percutaneously. Alcohol abuse. Celiac disease. She denies a history of heart disease, diabetes, stroke, lung disease or kidney disease. Anxiety. PAST SURGICAL HISTORY: She denies any surgeries. SOCIAL HISTORY: She has a fiancee. She smokes a few cigarettes a day. Alcohol as above. FAMILY HISTORY: She says her mother has celiac disease. REVIEW OF SYSTEMS: CONSTITUTIONAL: She has been feeling poorly at home due to her ongoing alcohol use and current symptomatology. SKIN: She denies a rash. No pruritus. HEENT: Negative. CARDIAC: No chest pain. PULMONARY: No coughing or hemoptysis. GI: As above. URINARY: No dysuria or hematuria. NEUROLOGIC: No headache or seizures. PSYCHIATRIC: She has anxiety. PHYSICAL EXAMINATION: GENERAL: The patient is an alert, comfortable appearing female in no distress. She answers questions appropriately. SKIN: Warm and dry. Nonjaundiced. HEENT: Anicteric sclerae. Moist mucous membranes. NECK: Supple. CHEST: Clear. Cardiac: Normal S1, S2. ABDOMEN: Soft, nondistended. Normal bowel sounds. She has some mild diffuse tenderness without mass or rebound. EXTREMITIES: Without edema. Neurologic: Seems to be alert and oriented and answers questions appropriately. LABORATORY DATA: White blood cell count 4000, hemoglobin 11.0, MCV 87, platelets 132,000. Sodium 135, potassium 2.6, chloride 91, CO2 of 19, BUN 4, creatinine 0.5. Calcium 8.2, magnesium 1.8 after repletion. Magnesium this morning was 1.1. Total bilirubin 1.1, direct bilirubin 0.4, AST 145, ALT 33, alkaline phosphatase 125, albumin 3.5, lipase 20. She had a CT scan of the abdomen and pelvis this morning describing an underdistended colon, but with what appears to be some diffuse submucosal edema of the colon, consistent with possible mild colitis. There is some diverticulosis but without any sign of diverticulitis. There was no sign of any intraabdominal abscess. There was evidence of fatty liver, but without any sign of liver mass nor biliary disease. IMPRESSION: Given the patient's presentation, I suspect this is multifactorial in relation to the chronic alcohol use, alcohol-induced hepatitis, and most likely refractory celiac disease due to continued gluten ingestion. She does not show any sign of pancreatitis nor diverticulitis on her CT scan. Given the negative colonoscopy in February and the CT report, I doubt she has inflammatory bowel disease, but something to consider would be that of some type of infectious colitis as well. As far as I can tell, she did not have any colon biopsies, and microscopic or collagenous colitis is another possibility as that is also associated with celiac disease. She does not show any sign of severe alcohol-induced hepatitis that would require steroids at this time. At this point, I would continue supportive care. I did order stool specimens to rule out any type of infection. I will continue her gluten-free diet. She will follow up laboratories ordered in the morning including a liver profile, PT with INR, and ammonia level. Again, I do not think she needs any steroids for the alcohol-induced hepatitis at this time. I have added an IV PPI to her regimen to see if that helps with her nausea and vomiting. I do not think she requires an endoscopy nor colonoscopy at this time. We did review that she obviously needs to abstain completely from alcohol on a long-term basis. If things improve, then she should be discharged on a gluten-free diet. This has all been discussed in detail with her and she is comfortable with this plan. Thank you for the consultation. MD CHANTE Varela/JOSE G / [phone] JEANA
[2022-08-24] MEDS: ondansetron HCL 4 MG/2 ML VIAL IVPUSH (23:15)
[2022-08-25 04:00] VITALS: BP 138/92; PULSE 145; RESP 16; TEMP 36.4; O2SAT 99
[2022-08-25 06:03] LABS: Hematocrit 38.3 % (37.0-47.0); Hemoglobin 13.5 g/dl (12.0-16.0); Mean Corpuscular HGB Conc 35.2 g/dl (31.0-35.0); Mean Corpuscular Hemoglobin 30.5 pg (27.0-33.0); Mean Corpuscular Volume 86.5 fL (80.0-98.0); Mean Platelet Volume 10.4 fL (9.4-12.3); Platelet Count 134 X10*3/uL (160-400); Red Blood Count 4.43 X10*6/uL (4.20-5.50); Red Cell Distribution Width 13.6 % (11.0-16.0); White Blood Count 3.7 X10*3/uL (4.8-10.8)
[2022-08-25 06:07] LABS: Ammonia 33 umol/L (13-55)
[2022-08-25 06:11] LABS: INTERNATIONAL NORM RATIO 1.3 (0.9-1.1); Prothrombin Time 14.5 SEC (10.0-13.1)
[2022-08-25 06:22] LABS: Anion Gap 18 (12-20)
[2022-08-25 06:42] LABS: Calcium 8.4 mg/dL (8.4-10.2); Chloride 83 mmol/L (96-108); Glucose Random 118 mg/dL (60-115); Sodium 128 mmol/L (135-145)
[2022-08-25 06:46] LABS: Blood Urea Nitrogen < 3 mg/dL (9-16); Carbon Dioxide 29 mmol/L (22-29); Creatinine Clr Calc Pharmacy 95.6; Estimated Glomerular Filt Rate > 60; Potassium 2.1 mmol/L (3.3-5.1)
--- NOTE | 2022-08-25 06:49 | PC.NURSE ---
Lab called with critical lab result of pt Potaasium 2.1. Dr. Manning notified no order given at this time.
[2022-08-25 07:14] VITALS: BP 128/70; PULSE 108; RESP 16; TEMP 36.9; O2SAT 100
--- NOTE | 2022-08-25 07:37 | PC.NURSE ---
Nurse Teresa stated she will hang pt Potassium Chloride IV medication
[2022-08-25] MEDS: Multivitamin TABLET 1 TAB PO (07:59)
[2022-08-25] MEDS: cloNIDine HCL 0.1 MG TABLET PO ×2 (07:59→16:10)
[2022-08-25] MEDS: Sertraline HCL 50 MG TABLET PO (07:59)
[2022-08-25 08:00] VITALS: RESP 20
[2022-08-25] MEDS: Naltrexone HCl 50 MG TABLET PO (08:00)
[2022-08-25] MEDS: ondansetron HCL 4 MG/2 ML VIAL IVPUSH (08:13)
--- NOTE | 2022-08-25 08:22 | HO.PM.IMPN ---
Subjective Subjective Date of Service: 08/25/22 Interval History: f/u n/v, alcohol withdrawal, electrolytes imbalances better this morning, potassium only 2.1, mag and LFTs pending Physical Exam Vital Signs: Vital Signs: Last Vital Signs Temp 98.4 F 08/25/22 07:14 Pulse 108 H 08/25/22 07:14 Resp 20 08/25/22 08:00 BP 128/70 08/25/22 07:14 Pulse Ox 100 08/25/22 07:14 O2 Del Method Room Air 08/25/22 07:14 BMI result Body Mass Index 17.7 General: AO X 3, no acute distress Resp: CTA bilateral CVS: S1,S2,RRR GI: +BS, NT, no distention Skin: No rash Neuro: motor grossly intact Psych: appropriate affect Objective Data Active Medications Clonidine HCl (Clonidine Hcl 0.1 Mg Tablet) 0.1 mg PO TID PRN; Protocol PRN Reason: Anxiety Last Admin: 08/25/22 07:59 Dose: 0.1 mg Documented By: COTEMA Metronidazole (Flagyl) 500 mg in 100 mls @ 100 mls/hr IV BID [facility] Last Infusion: 08/24/22 22:04 Dose: 0 mls/hr Documented By: NAYLAT Potassium Chloride (Potassium Chloride/H20) 10 meq in 100 mls @ 100 mls/hr IV Q1H [facility] Stop: 08/25/22 09:44 Last Admin: 08/25/22 08:21 Dose: 100 mls/hr Documented By: COTEMA Morphine Sulfate (Morphine Sulfate 4 Mg/Ml Cartridge) 2 mg IVPUSH Q4H PRN; Protocol PRN Reason: Pain, Severe (Pain Scale 7-10) Last Admin: 08/25/22 08:00 Dose: 2 mg Documented By: LENIN Multivitamins/Vitamin C (Multivitamin Tablet) 1 tab PO DAILY [facility] Last Admin: 08/25/22 07:59 Dose: 1 tab Documented By: COTEMA Naltrexone HCl (Naltrexone Hcl 50 Mg Tablet) 50 mg PO DAILY [facility] Last Admin: 08/25/22 08:00 Dose: 50 mg Documented By: COTEMA Ondansetron HCl (Ondansetron Hcl 4 Mg/2 Ml Vial) 4 mg IVPUSH Q8H PRN PRN Reason: nausea Last Admin: 08/25/22 08:13 Dose: 4 mg Documented By: LENIN Pantoprazole Sodium (Pantoprazole Sodium 40 Mg/10 Ml Vial) 40 mg IVPUSH BID@0630,1630 [facility] Last Admin: 08/25/22 06:02 Dose: 40 mg Documented By: MINISTERIO Pharmacy Consult (Consult Rx Perform Med Rec) 1 each MISCELLANE ONCE PRN PRN Reason: Consult order Pharmacy Consult (Consult Rx Etoh Phenob Im/Po) 1 each MISCELLANE ONCE PRN; Protocol PRN Reason: Consult order Phenobarbital (Phenobarbital 15 Mg Tablet) 45 mg PO BID [facility]; Protocol Stop: 08/26/22 09:01 Last Admin: 08/25/22 08:00 Dose: 45 mg Documented By: LENIN Phenobarbital (Phenobarbital 15 Mg Tablet) 15 mg PO BID [facility]; Protocol Stop: 08/28/22 09:01 Phenobarbital (Phenobarbital 15 Mg Tablet) 15 mg PO DAILY [facility]; Protocol Stop: 08/30/22 09:01 Potassium Chloride (Potassium Chloride Packet 20 Meq Packet) 40 meq PO DAILY [facility] Last Admin: 08/25/22 07:37 Dose: Not Given Documented By: LENIN Non-Admin Reason: Previously Administered Propranolol HCl (Propranolol Hcl 10 Mg Tablet) 30 mg PO TID PRN; Protocol PRN Reason: Anxiety Sertraline HCl (Sertraline Hcl 50 Mg Tablet) 50 mg PO DAILY [facility] Last Admin: 08/25/22 07:59 Dose: 50 mg Documented By: LENIN Labs 08/25/22 05:51 08/25/22 05:51 Labs: Laboratory Results - last 24 hr 08/24/22 08/25/22 08/25/22 06:38 05:51 05:51 MCV MCH MCHC RDW Plt Count MPV Absolute Nucleated RBC Nucleated RBC % (auto) PT 14.5 H INR 1.3 H Anion Gap 28 H Estim Creat Clear Calc 137.1 Estimated GFR > 60 Random Glucose 139 H Calcium 8.2 L Ammonia 33 08/25/22 08/25/22 05:51 05:51 MCV 86.5 MCH 30.5 MCHC 35.2 H RDW 13.6 Plt Count 134 L MPV 10.4 Absolute Nucleated RBC 0.000 Nucleated RBC % (auto) 0.0 PT INR Anion Gap 18 Estim Creat Clear Calc 95.6 Estimated GFR > 60 Random Glucose 118 H Calcium 8.4 Ammonia Assessment and Plan (1) Hypokalemia: Status: Acute Plan 42/F with alcohol dependency, h/o TOA, anxiety do, diverticular disease here with? abdominal pain, n/v and found to have mild pancolitis and CT unable to dc home d/t persistent nausea and vomitting mild inflamed colon, initially treated with Abx, now appear to be related to alcoholic hepatitis, and celiac disease.. Supportive care at this point, stop ABx, IVF, antiemtics and advance diet. Gluten free severe Hypokalemia and? HYpOmagnesemia--related to alcohol use desorder, replace with IV and PO, K and IV magnesium Hepatic steatosis with elevated LFTs--likely from alcohol, and has some degree of alcoholic hepatitis Pancytopenia--due to chronic alcohol use and raymundo liver disease Alcohol use desorder--Phenobarbital to prevent full blown withdrawal, as she drinks rather heavily, addiction med consult Need for inpatient: pancolitis, not able to tolerate PO, severe Hypokalemia needs IV replacment and montoring dvt prophylaxis: early ambulation d/t pancytopenia Time Spent With Patient Time: Total time managing care of this patient today ____ minutes. Quality Stroke Does the patient have a stroke diagnosis?: No VTE Prior VTE?: No VTE Risk Level:: Medical - low VTE Device Contraindication: Treatment Not Indicated VTE Drug Contraindication: N/A - Med Ordered
[2022-08-25 08:29] LABS: Magnesium 0.9 mg/dL (1.6-2.6)
[2022-08-25] MEDS: Potassium Chloride Packet 20 MEQ PACKET 40 MEQ PO (09:11)
--- NOTE | 2022-08-25 09:47 | MHC.CM.PN ---
CM MET WITH PT AT BEDSIDE. PT LIVES WITH S/O IN A SECOND FLOOR [place]. PT HAS TRANSPORTATION ISSUES. [employer] PROVIDED. + COVID VAX X 3 + HCP ON FILE. PCP JEYSON HAYS AT [facility] [place], [place]. DP: HOME WITH NO SERVICES ANTICIPATED. PT WILL NEED SHUTTLE OR LYFT TRANSPORT HOME. CM WILL CONTINUE TO FOLLOW FOR DC NEEDS/PLAN.
[2022-08-25 12:12] LABS: Alanine Aminotransferase 45 U/L (0-31); Albumin Level 3.8 g/dL (3.5-5.0); Alkaline Phosphatase 141 U/L (39-117); Aspartate Amino Transferase 211 U/L (5-31); Bilirubin Direct 0.9 mg/dL (0.0-0.5); Bilirubin Total 2.3 mg/dL (0.0-1.0); Total Protein 7.2 g/dL (6.5-8.0)
[2022-08-25 12:30] VITALS: RESP 19
--- NOTE | 2022-08-25 13:34 | MHC.RECOVRN ---
This documentation writer met with patient after addiction consult was placed. Pt was resting in bed, pt had difficulty answering this writers questions, will return when pt more alert.
[2022-08-25 15:06] VITALS: BP 100/65; PULSE 97; RESP 18; TEMP 36.3; O2SAT 99
[2022-08-25 19:17] VITALS: BP 93/58; PULSE 65; RESP 18; TEMP 36.3; O2SAT 98
[2022-08-25] MEDS: Fidaxomicin 200 MG TABLET PO (20:35)
[2022-08-26 04:00] VITALS: BP 99/76; PULSE 72; RESP 16; TEMP 36.4; O2SAT 100
[2022-08-26 08:00] VITALS: BP 98/63; PULSE 73; RESP 16; TEMP 36; O2SAT 98
--- NOTE | 2022-08-26 08:33 | HO.PM.IMPN ---
Subjective Subjective Date of Service: 08/26/22 Interval History: f/u n/v, alcohol withdrawal, abnormal electrolytes and c dif potassium and mag normal, has some mild abd discomfort, diarhea is better, having periods of confusion overnight but lucid this morning Physical Exam Vital Signs: Vital Signs: Last Vital Signs Temp 96.8 F 08/26/22 08:00 Pulse 73 08/26/22 08:00 Resp 16 08/26/22 08:00 BP 98/63 08/26/22 08:00 Pulse Ox 98 08/26/22 08:00 O2 Del Method Room Air 08/26/22 08:00 BMI result Body Mass Index 17.7 Const: Other: General: AO X 3, no acute distress Resp: CTA bilateral CVS: S1,S2,RRR GI: +BS, NT, no distention Skin: No rash Neuro: motor grossly intact Psych: flat affect Objective Data Active Medications Clonidine HCl (Clonidine Hcl 0.1 Mg Tablet) 0.1 mg PO TID PRN; Protocol PRN Reason: Anxiety Last Admin: 08/25/22 16:10 Dose: 0.1 mg Documented By: LENIN Fidaxomicin (Fidaxomicin 200 Mg Tablet) 200 mg PO BID [facility] Last Admin: 08/25/22 20:35 Dose: 200 mg Documented By: BABITA Metronidazole (Flagyl) 500 mg in 100 mls @ 100 mls/hr IV BID [facility] Last Infusion: 08/25/22 22:16 Dose: 0 mls/hr Documented By: BABITA Potassium Chloride/Dextrose (Kcl 20 Meq In 5 % Dextrose) 20 meq in 1,000 mls @ 125 mls/hr IVCONT .Q8H [facility] Last Admin: 08/26/22 03:19 Dose: 125 mls/hr Documented By: BABITA Morphine Sulfate (Morphine Sulfate 4 Mg/Ml Cartridge) 2 mg IVPUSH Q4H PRN; Protocol PRN Reason: Pain, Severe (Pain Scale 7-10) Last Admin: 08/26/22 00:43 Dose: 2 mg Documented By: BABITA Multivitamins/Vitamin C (Multivitamin Tablet) 1 tab PO DAILY [facility] Last Admin: 08/25/22 07:59 Dose: 1 tab Documented By: LENIN Naltrexone HCl (Naltrexone Hcl 50 Mg Tablet) 50 mg PO DAILY [facility] Last Admin: 08/25/22 08:00 Dose: 50 mg Documented By: COTEMA Ondansetron HCl (Ondansetron Hcl 4 Mg/2 Ml Vial) 4 mg IVPUSH Q8H PRN PRN Reason: nausea Last Admin: 08/25/22 08:13 Dose: 4 mg Documented By: COTEMA Pantoprazole Sodium (Pantoprazole Sodium 40 Mg/10 Ml Vial) 40 mg IVPUSH BID@0630,1630 [facility] Last Admin: 08/26/22 05:47 Dose: 40 mg Documented By: BABITA Pharmacy Consult (Consult Rx Perform Med Rec) 1 each MISCELLANE ONCE PRN PRN Reason: Consult order Pharmacy Consult (Consult Rx Etoh Phenob Im/Po) 1 each MISCELLANE ONCE PRN; Protocol PRN Reason: Consult order Phenobarbital (Phenobarbital 15 Mg Tablet) 45 mg PO BID [facility]; Protocol Stop: 08/26/22 09:01 Last Admin: 08/25/22 20:36 Dose: 45 mg Documented By: BABITA Phenobarbital (Phenobarbital 15 Mg Tablet) 15 mg PO BID [facility]; Protocol Stop: 08/28/22 09:01 Phenobarbital (Phenobarbital 15 Mg Tablet) 15 mg PO DAILY [facility]; Protocol Stop: 08/30/22 09:01 Potassium Chloride (Potassium Chloride Packet 20 Meq Packet) 40 meq PO DAILY [facility] Last Admin: 08/25/22 09:11 Dose: 40 meq Documented By: LENIN Propranolol HCl (Propranolol Hcl 10 Mg Tablet) 30 mg PO TID PRN; Protocol PRN Reason: Anxiety Last Admin: 08/25/22 16:10 Dose: 30 mg Documented By: COTEMA Sertraline HCl (Sertraline Hcl 50 Mg Tablet) 50 mg PO DAILY [facility] Last Admin: 08/25/22 07:59 Dose: 50 mg Documented By: COTALEXI Labs 08/25/22 05:51 08/26/22 07:55 Labs: Laboratory Results - last 24 hr 08/25/22 08/25/22 08/25/22 05:51 13:10 13:36 Anion Gap 20 Estim Creat Clear Calc Estimated GFR Random Glucose Calcium Magnesium Total Bilirubin 2.3 H Direct Bilirubin 0.9 H AST 211 H ALT 45 H Alkaline Phosphatase 141 H Total Protein 7.2 Albumin 3.8 Stool Leukocytes, Qual C. difficile Tox B Gene POSITIVE A* C. difficile Toxin A&B Negative C. difficile Interpret SEE NOTE 08/25/22 08/26/22 Unknown 07:55 Anion Gap 15 Estim Creat Clear Calc 92.5 Estimated GFR > 60 Random Glucose 96 Calcium 8.8 Magnesium 1.6 Total Bilirubin Direct Bilirubin AST ALT Alkaline Phosphatase Total Protein Albumin Stool Leukocytes, Qual NEGATIVE C. difficile Tox B Gene C. difficile Toxin A&B C. difficile Interpret Assessment and Plan (1) Hypokalemia: Status: Acute (2) C. difficile colitis: Status: Acute Plan 42/F with alcohol dependency, h/o TOA, anxiety do, diverticular disease here with? abdominal pain, n/v diarrhea and found to have mild pancolitis and CT, cdif and abnormal electrolytes (K, mag, Na) Colitis--likely from C dif. Started on Dificid 08/26/22, supportive care severe Hypokalemia and? HYpOmagnesemia--related to alcohol use desorder and diarrhea. Replaced with IV and PO K, IV mag now normal, continue to replace as needed Hepatic steatosis with elevated LFTs--likely from alcohol, and has some degree of alcoholic hepatitis Pancytopenia--due to chronic alcohol use and raymundo liver disease Alcohol use desorder--Phenobarbital to prevent full blown withdrawal, as she drinks rather heavily, addiction, continue Naltrexone Need for inpatient: C dif colitis with diarrhea, not able to tolerate PO, severe Hypokalemia needs IV replacment and montoring for alcohol withdrawal dvt prophylaxis: early ambulation d/t pancytopenia Time Spent With Patient Time: Total time managing care of this patient today ____ minutes. Quality Stroke Does the patient have a stroke diagnosis?: No VTE Prior VTE?: No VTE Risk Level:: Medical - low VTE Device Contraindication: Treatment Not Indicated VTE Drug Contraindication: N/A - Med Ordered
[2022-08-26] MEDS: Naltrexone HCl 50 MG TABLET PO (08:45)
[2022-08-26] MEDS: Sertraline HCL 50 MG TABLET PO (08:45)
[2022-08-26] MEDS: Potassium Chloride Packet 20 MEQ PACKET 40 MEQ PO (08:45)
[2022-08-26] MEDS: Fidaxomicin 200 MG TABLET PO ×2 (08:45→20:41)
[2022-08-26] MEDS: Multivitamin TABLET 1 TAB PO (08:45)
[2022-08-26 08:52] VITALS: RESP 19
[2022-08-26] MEDS: ondansetron HCL 4 MG/2 ML VIAL IVPUSH (08:52)
--- NOTE | 2022-08-26 13:23 | MHC.CM.PN ---
EMR REVIEWED AND PER MD ROUNDS, PT NOT MEDICALLY CLEARED FOR DC YET ( ETOH WITHDRAWAL PROTOCOL, ELECTROLYTE MONITORING,C-DIFF) CM WILL CONTINUE TO FOLLOW FOR DC NEEDS/PLAN.
[2022-08-26 14:39] VITALS: RESP 18
[2022-08-26 18:38] VITALS: BP 95/63; PULSE 60; RESP 18; TEMP 36; O2SAT 96
[2022-08-26 19:44] VITALS: BP 138/70; PULSE 75; RESP 18; TEMP 36; O2SAT 100
[2022-08-27 03:35] VITALS: BP 131/99; PULSE 79; RESP 18; TEMP 36.4; O2SAT 100
[2022-08-27] MEDS: cloNIDine HCL 0.1 MG TABLET PO (04:16)
[2022-08-27 06:17] LABS: Anion Gap 13 (12-20); Blood Urea Nitrogen < 3 mg/dL (9-16); Calcium 8.7 mg/dL (8.4-10.2); Carbon Dioxide 19 mmol/L (22-29); Chloride 106 mmol/L (96-108); Creatinine Clr Calc Pharmacy 98.9; Estimated Glomerular Filt Rate > 60; Glucose Random 122 mg/dL (60-115); Potassium 3.5 mmol/L (3.3-5.1); Sodium 134 mmol/L (135-145)
[2022-08-27 07:35] VITALS: BP 102/70; PULSE 88; RESP 17; TEMP 36.2; O2SAT 98
[2022-08-27 07:43] VITALS: BP 94/50; PULSE 71; RESP 17; TEMP 36.6; O2SAT 97
--- NOTE | 2022-08-27 07:46 | HO.PM.IMPN ---
Subjective Subjective Date of Service: 08/27/22 Interval History: f/u n/v, alcohol withdrawal, abnormal electrolytes and c dif persistent diarrhea, intermittent VH from alcohol withdrawal Physical Exam Vital Signs: Vital Signs: Last Vital Signs Temp 97.1 F 08/27/22 07:35 Pulse 88 08/27/22 07:35 Resp 17 08/27/22 07:35 BP 102/70 08/27/22 07:35 Pulse Ox 98 08/27/22 07:35 O2 Del Method Room Air 08/27/22 07:35 BMI result Body Mass Index 17.7 Const: Other: General: AO X 3, no acute distress Resp: CTA bilateral CVS: S1,S2,RRR GI: +BS, NT, no distention Skin: No rash Neuro: motor grossly intact Psych: appropriate affect Objective Data Active Medications Clonidine HCl (Clonidine Hcl 0.1 Mg Tablet) 0.1 mg PO TID PRN; Protocol PRN Reason: Anxiety Last Admin: 08/27/22 04:16 Dose: 0.1 mg Documented By: ALICE Fidaxomicin (Fidaxomicin 200 Mg Tablet) 200 mg PO BID [facility] Last Admin: 08/26/22 20:41 Dose: 200 mg Documented By: ALICE Metronidazole (Flagyl) 500 mg in 100 mls @ 100 mls/hr IV BID [facility] Last Infusion: 08/26/22 21:47 Dose: 0 mls/hr Documented By: ALICE Potassium Chloride/Dextrose (Kcl 20 Meq In 5 % Dextrose) 20 meq in 1,000 mls @ 125 mls/hr IVCONT .Q8H [facility] Last Admin: 08/27/22 05:15 Dose: 125 mls/hr Documented By: ALICE Morphine Sulfate (Morphine Sulfate 4 Mg/Ml Cartridge) 2 mg IVPUSH Q4H PRN; Protocol PRN Reason: Pain, Severe (Pain Scale 7-10) Last Admin: 08/27/22 04:16 Dose: 2 mg Documented By: ALICE Multivitamins/Vitamin C (Multivitamin Tablet) 1 tab PO DAILY [facility] Last Admin: 08/26/22 08:45 Dose: 1 tab Documented By: COTEMA Naltrexone HCl (Naltrexone Hcl 50 Mg Tablet) 50 mg PO DAILY [facility] Last Admin: 08/26/22 08:45 Dose: 50 mg Documented By: LENIN Ondansetron HCl (Ondansetron Hcl 4 Mg/2 Ml Vial) 4 mg IVPUSH Q8H PRN PRN Reason: nausea Last Admin: 08/26/22 08:52 Dose: 4 mg Documented By: LENIN Pantoprazole Sodium (Pantoprazole Sodium 40 Mg/10 Ml Vial) 40 mg IVPUSH BID@0630,1630 [facility] Last Admin: 08/27/22 05:44 Dose: 40 mg Documented By: ALICE Pharmacy Consult (Consult Rx Perform Med Rec) 1 each MISCELLANE ONCE PRN PRN Reason: Consult order Pharmacy Consult (Consult Rx Etoh Phenob Im/Po) 1 each MISCELLANE ONCE PRN; Protocol PRN Reason: Consult order Phenobarbital (Phenobarbital 15 Mg Tablet) 15 mg PO BID [facility]; Protocol Stop: 08/28/22 09:01 Last Admin: 08/26/22 20:41 Dose: 15 mg Documented By: ALICE Phenobarbital (Phenobarbital 15 Mg Tablet) 15 mg PO DAILY [facility]; Protocol Stop: 08/30/22 09:01 Potassium Chloride (Potassium Chloride Packet 20 Meq Packet) 40 meq PO DAILY [facility] Last Admin: 08/26/22 08:45 Dose: 40 meq Documented By: LENIN Propranolol HCl (Propranolol Hcl 10 Mg Tablet) 30 mg PO TID PRN; Protocol PRN Reason: Anxiety Last Admin: 08/25/22 16:10 Dose: 30 mg Documented By: LENIN Sertraline HCl (Sertraline Hcl 50 Mg Tablet) 50 mg PO DAILY [facility] Last Admin: 08/26/22 08:45 Dose: 50 mg Documented By: LENIN Labs 08/27/22 05:34 08/27/22 05:34 Labs: Laboratory Results - last 24 hr 08/26/22 08/27/22 08/27/22 07:55 05:34 05:34 MCV 91.3 MCH 30.7 MCHC 33.6 RDW 14.3 Plt Count 108 L MPV 10.9 Absolute Nucleated RBC 0.000 Nucleated RBC % (auto) 0.0 Anion Gap 15 13 Estim Creat Clear Calc 92.5 98.9 Estimated GFR > 60 > 60 Random Glucose 96 122 H Calcium 8.8 8.7 Magnesium 1.6 Assessment and Plan (1) Hypokalemia: Status: Acute (2) C. difficile colitis: Status: Acute Plan 42/F with alcohol dependency, h/o TOA, anxiety do, diverticular disease here with? abdominal pain, n/v diarrhea and found to have mild pancolitis and CT, cdif and abnormal electrolytes (K, mag, Na) Colitis-- from C dif. Started on Dificid 08/26/22, supportive care, IVF to replace fluid loss severe Hypokalemia and? HYpOmagnesemia--related to alcohol use disorder and diarrhea. Replaced with IV and PO K, IV mag now normal, continue to replace as needed Hepatic steatosis with elevated LFTs--likely from alcohol, and has some degree of alcoholic hepatitis Pancytopenia--due to chronic alcohol use and fatty liver disease Alcohol use disorder--Phenobarbital to prevent full blown withdrawal, as she drinks rather heavily, addiction, continue Naltrexone Need for inpatient: C dif colitis with diarrhea, not able to tolerate PO, severe Hypokalemia needs IV replacment and montoring for alcohol withdrawal dvt prophylaxis: early ambulation d/t pancytopenia Time Spent With Patient Time: Total time managing care of this patient today ____ minutes. Quality Stroke Does the patient have a stroke diagnosis?: No VTE Prior VTE?: No VTE Risk Level:: Medical - low VTE Device Contraindication: Treatment Not Indicated VTE Drug Contraindication: N/A - Med Ordered
[2022-08-27] MEDS: Fidaxomicin 200 MG TABLET PO ×2 (08:49→20:38)
[2022-08-27] MEDS: Multivitamin TABLET 1 TAB PO (08:50)
[2022-08-27] MEDS: Sertraline HCL 50 MG TABLET PO (08:51)
[2022-08-27] MEDS: Naltrexone HCl 50 MG TABLET PO (08:51)
[2022-08-27] MEDS: Potassium Chloride Packet 20 MEQ PACKET 40 MEQ PO (08:52)
[2022-08-27] MEDS: ondansetron HCL 4 MG/2 ML VIAL IVPUSH (09:08)
--- NOTE | 2022-08-27 11:19 | MHC.RECOVRN ---
Met with pt in 358 after consult placed to Addiction Medicine. Pt admitted to [facility] due to hypokalemia and C. difficile colitis. Pt receiving phenobarb for alcohol withdrawal. Pt sitting in bed, awake, alert, easily engages in conversation, does not appear to be experiencing withdrawal. Pt reporting abdominal pain related to C. diff, denies alcohol withdrawal symptoms. Pt reports currently drinking 10-12 nips daily. Reports prior to 3 years ago had been a social drinker, however, had multiple deaths in the family as well as a fiance with AUD led to increased alcohol consumption. Pt reports fiance is now in recovery. Pts longest period of recovery had been 9 months. During that time pt attributes work and spending time with friends to period of abstinence. Pt is not currently working but would like to return to work at [employer] if she is able. Pt had been prescribed naltrexone through PCP and found it helpful when she was taking it. Prior to [facility] admission, pt had not been taking it regularly. Discussed [facility], pt interested in initiating care. Will need appointment prior to dc. Denies questions or concerns at this time.
[2022-08-27] MEDS: Ibuprofen 600 MG TABLET PO (12:22)
[2022-08-27 16:00] VITALS: BP 110/73; PULSE 67; RESP 20; TEMP 36; O2SAT 99
[2022-08-27 19:59] VITALS: BP 108/70; PULSE 90; RESP 20; TEMP 36; O2SAT 99
[2022-08-28 04:00] VITALS: BP 108/73; PULSE 76; RESP 18; TEMP 36.2; O2SAT 100
[2022-08-28 07:58] VITALS: BP 133/94; PULSE 84; RESP 18; TEMP 36.7; O2SAT 100
--- NOTE | 2022-08-28 08:09 | HO.PM.IMPN ---
Subjective Subjective Date of Service: 08/28/22 Interval History: f/u n/v, alcohol withdrawal, abnormal electrolytes and c dif persistent diarrhea, abdominal pain, no signs of etoh withdrawal Physical Exam Vital Signs: Vital Signs: Last Vital Signs Temp 98.0 F 08/28/22 07:58 Pulse 84 08/28/22 07:58 Resp 18 08/28/22 07:58 BP 133/94 H 08/28/22 07:58 Pulse Ox 100 08/28/22 07:58 O2 Del Method Room Air 08/28/22 07:58 BMI result Body Mass Index 17.7 Const: Other: General: AO X 3, no acute distress Resp: CTA bilateral CVS: S1,S2,RRR GI: +BS, NT, no distention Skin: No rash Neuro: motor grossly intact Psych: appropriate affect Objective Data Active Medications Clonidine HCl (Clonidine Hcl 0.1 Mg Tablet) 0.1 mg PO TID PRN; Protocol PRN Reason: Anxiety Last Admin: 08/27/22 04:16 Dose: 0.1 mg Documented By: ALICE Fidaxomicin (Fidaxomicin 200 Mg Tablet) 200 mg PO BID [facility] Last Admin: 08/27/22 20:38 Dose: 200 mg Documented By: ALICE Metronidazole (Flagyl) 500 mg in 100 mls @ 100 mls/hr IV BID [facility] Last Infusion: 08/27/22 22:29 Dose: 0 mls/hr Documented By: ALICE Ibuprofen (Ibuprofen 600 Mg Tablet) 600 mg PO Q6H PRN PRN Reason: moderate pain Last Admin: 08/27/22 12:22 Dose: 600 mg Documented By: HAZEL Morphine Sulfate (Morphine Sulfate 4 Mg/Ml Cartridge) 2 mg IVPUSH Q4H PRN; Protocol PRN Reason: Pain, Severe (Pain Scale 7-10) Last Admin: 08/28/22 04:24 Dose: 2 mg Documented By: ALICE Morphine Sulfate (Morphine Sulfate 2 Mg/Ml Cartridge) 2 mg IVPUSH Q6H PRN; Protocol PRN Reason: Pain, Severe (Pain Scale 7-10) Multivitamins/Vitamin C (Multivitamin Tablet) 1 tab PO DAILY [facility] Last Admin: 08/27/22 08:50 Dose: 1 tab Documented By: HAZEL Naltrexone HCl (Naltrexone Hcl 50 Mg Tablet) 50 mg PO DAILY [facility] Last Admin: 08/27/22 08:51 Dose: 50 mg Documented By: HAZEL Ondansetron HCl (Ondansetron Hcl 4 Mg/2 Ml Vial) 4 mg IVPUSH Q8H PRN PRN Reason: nausea Last Admin: 08/27/22 09:08 Dose: 4 mg Documented By: HAZEL Pharmacy Consult (Consult Rx Perform Med Rec) 1 each MISCELLANE ONCE PRN PRN Reason: Consult order Pharmacy Consult (Consult Rx Etoh Phenob Im/Po) 1 each MISCELLANE ONCE PRN; Protocol PRN Reason: Consult order Phenobarbital (Phenobarbital 15 Mg Tablet) 15 mg PO BID [facility]; Protocol Stop: 08/28/22 09:01 Last Admin: 08/27/22 20:38 Dose: 15 mg Documented By: SHAYRISKaitlynn Phenobarbital (Phenobarbital 15 Mg Tablet) 15 mg PO DAILY [facility]; Protocol Stop: 08/30/22 09:01 Potassium Chloride (Potassium Chloride Packet 20 Meq Packet) 40 meq PO DAILY [facility] Last Admin: 08/27/22 08:52 Dose: 40 meq Documented By: HAZEL Propranolol HCl (Propranolol Hcl 10 Mg Tablet) 30 mg PO TID PRN; Protocol PRN Reason: Anxiety Last Admin: 08/25/22 16:10 Dose: 30 mg Documented By: COTEMA Sertraline HCl (Sertraline Hcl 50 Mg Tablet) 50 mg PO DAILY [facility] Last Admin: 08/27/22 08:51 Dose: 50 mg Documented By: HAZEL Labs 08/27/22 05:34 08/27/22 05:34 Assessment and Plan (1) Hypokalemia: Status: Acute (2) C. difficile colitis: Status: Acute Plan 42/F with alcohol dependency, h/o TOA, anxiety do, diverticular disease here with? abdominal pain, n/v diarrhea and found to have mild pancolitis and CT, cdif and abnormal electrolytes (K, mag, Na) C dif Colitis and diarrhea - POA. Started on Dificid 08/26/22, supportive care, IVF to replace fluid loss, consider imodium to slow diarrhea Severe HypOkalemia and? HYpOmagnesemia--related to alcohol use disorder and diarrhea. Replaced with IV and PO K, IV mag now normal, continue to replace as needed Hepatic steatosis with elevated LFTs--likely from alcohol, and has some degree of alcoholic hepatitis Pancytopenia--due to chronic alcohol use and fatty liver disease, closely monitor Alcohol use disorder--Phenobarbital to prevent full blown withdrawal, as she drinks rather heavily, addiction, continue Naltrexone Need for inpatient: C dif colitis with diarrhea, not able to tolerate PO, severe Hypokalemia needs IV replacment and montoring for alcohol withdrawal dvt prophylaxis: early ambulation d/t pancytopenia Time Spent With Patient Time: Total time managing care of this patient today ____ minutes. Quality Stroke Does the patient have a stroke diagnosis?: No VTE Prior VTE?: No VTE Risk Level:: Medical - low VTE Device Contraindication: Treatment Not Indicated VTE Drug Contraindication: N/A - Med Ordered
[2022-08-28] MEDS: Fidaxomicin 200 MG TABLET PO ×2 (09:12→19:43)
[2022-08-28] MEDS: Sertraline HCL 50 MG TABLET PO (09:12)
[2022-08-28] MEDS: Naltrexone HCl 50 MG TABLET PO (09:13)
[2022-08-28] MEDS: Multivitamin TABLET 1 TAB PO (09:13)
[2022-08-28] MEDS: Potassium Chloride Packet 20 MEQ PACKET 40 MEQ PO (09:14)
[2022-08-28 15:39] VITALS: BP 114/74; PULSE 63; RESP 20; TEMP 36; O2SAT 100
[2022-08-28 19:29] VITALS: BP 103/69; PULSE 66; RESP 20; TEMP 36; O2SAT 100
[2022-08-28] MEDS: ondansetron HCL 4 MG/2 ML VIAL IVPUSH (19:43)
[2022-08-28] MEDS: Ibuprofen 600 MG TABLET PO (19:43)
[2022-08-29 03:26] VITALS: BP 112/70; PULSE 64; RESP 16; TEMP 36.9; O2SAT 95
[2022-08-29] MEDS: cloNIDine HCL 0.1 MG TABLET PO (04:30)
[2022-08-29 06:52] LABS: Anion Gap 13 (12-20); Blood Urea Nitrogen < 3 mg/dL (9-16); Calcium 8.9 mg/dL (8.4-10.2); Carbon Dioxide 17 mmol/L (22-29); Chloride 109 mmol/L (96-108); Creatinine Clr Calc Pharmacy 115.2; Estimated Glomerular Filt Rate > 60; Glucose Random 112 mg/dL (60-115); Magnesium 1.5 mg/dL (1.6-2.6); Potassium 4.3 mmol/L (3.3-5.1); Sodium 135 mmol/L (135-145)
[2022-08-29 07:12] VITALS: BP 84/60; PULSE 67; RESP 16; TEMP 36.1; O2SAT 99
--- NOTE | 2022-08-29 07:42 | PC.NURSE ---
Addendum entered by Susan Caputo RN 08/29/22 08:53: rechecked BP manually after 1L NS bolus, 100/70. Original Note: Morning vitals taken, on machine BP 78/51, rechecked manually 84/60. Pt reports headache and feeling short of breath. O2 99 on room air. 2LNC put on for comfort with some relief reported by Pt. Dr Simon notified, 1L NS bolus ordered. Dr Simon to bedside.
--- NOTE | 2022-08-29 08:04 | HO.PM.IMPN ---
Subjective Subjective Date of Service: 08/29/22 Interval History: f/u n/v, alcohol withdrawal, abnormal electrolytes and c dif She is still having diarrhea, BP low this morning and has headache Review of Systems headache Physical Exam Vital Signs: Vital Signs: Last Vital Signs Temp 96.9 F 08/29/22 07:12 Pulse 67 08/29/22 07:12 Resp 16 08/29/22 07:12 BP 84/60 L 08/29/22 07:12 Pulse Ox 99 08/29/22 07:12 O2 Del Method Room Air 08/29/22 07:12 BMI result Body Mass Index 17.7 Const: Other: General: AO X 3, no acute distress Resp: CTA bilateral CVS: S1,S2,RRR GI: +BS, NT, no distention Skin: No rash Neuro: motor grossly intact Psych: appropriate affect Objective Data Active Medications Clonidine HCl (Clonidine Hcl 0.1 Mg Tablet) 0.1 mg PO TID PRN; Protocol PRN Reason: Anxiety Last Admin: 08/29/22 04:30 Dose: 0.1 mg Documented By: TASHA Fidaxomicin (Fidaxomicin 200 Mg Tablet) 200 mg PO BID [facility] Last Admin: 08/28/22 19:43 Dose: 200 mg Documented By: TASHA Metronidazole (Flagyl) 500 mg in 100 mls @ 100 mls/hr IV BID [facility] Last Infusion: 08/28/22 20:45 Dose: 0 mls/hr Documented By: TASHA Magnesium Sulfate (Magnesium Sulfate/H2o) 2 gm in 50 mls @ 25 mls/hr IV ONCE ONE Stop: 08/29/22 09:06 Sodium Chloride (Ns) 1,000 mls @ 999 mls/hr IVCONT .Q1H1M [facility] Stop: 08/29/22 08:30 Last Admin: 08/29/22 07:34 Dose: 999 mls/hr Documented By: BEE Ibuprofen (Ibuprofen 600 Mg Tablet) 600 mg PO Q6H PRN PRN Reason: moderate pain Last Admin: 08/28/22 19:43 Dose: 600 mg Documented By: TASHA Morphine Sulfate (Morphine Sulfate 2 Mg/Ml Cartridge) 2 mg IVPUSH Q6H PRN; Protocol PRN Reason: Pain, Severe (Pain Scale 7-10) Last Admin: 08/29/22 02:02 Dose: 2 mg Documented By: TASHA Multivitamins/Vitamin C (Multivitamin Tablet) 1 tab PO DAILY [facility] Last Admin: 08/28/22 09:13 Dose: 1 tab Documented By: BEE Naltrexone HCl (Naltrexone Hcl 50 Mg Tablet) 50 mg PO DAILY [facility] Last Admin: 08/28/22 09:13 Dose: 50 mg Documented By: BEE Ondansetron HCl (Ondansetron Hcl 4 Mg/2 Ml Vial) 4 mg IVPUSH Q8H PRN PRN Reason: nausea Last Admin: 08/28/22 19:43 Dose: 4 mg Documented By: TASHA Pharmacy Consult (Consult Rx Perform Med Rec) 1 each MISCELLANE ONCE PRN PRN Reason: Consult order Pharmacy Consult (Consult Rx Etoh Phenob Im/Po) 1 each MISCELLANE ONCE PRN; Protocol PRN Reason: Consult order Phenobarbital (Phenobarbital 15 Mg Tablet) 15 mg PO DAILY [facility]; Protocol Stop: 08/30/22 09:01 Potassium Chloride (Potassium Chloride Packet 20 Meq Packet) 40 meq PO DAILY [facility] Last Admin: 08/28/22 09:14 Dose: 40 meq Documented By: BEE Propranolol HCl (Propranolol Hcl 10 Mg Tablet) 30 mg PO TID PRN; Protocol PRN Reason: Anxiety Last Admin: 08/28/22 13:02 Dose: 30 mg Documented By: HUI Sertraline HCl (Sertraline Hcl 50 Mg Tablet) 50 mg PO DAILY [facility] Last Admin: 08/28/22 09:12 Dose: 50 mg Documented By: BEE Labs 08/29/22 05:41 08/29/22 05:41 Labs: Laboratory Results - last 24 hr 08/29/22 08/29/22 05:41 05:41 MCV 94.4 MCH 30.7 MCHC 32.5 RDW 15.3 Plt Count 154 L D MPV 10.8 Absolute Nucleated RBC 0.000 Nucleated RBC % (auto) 0.0 Anion Gap 13 Estim Creat Clear Calc 115.2 Estimated GFR > 60 Random Glucose 112 Calcium 8.9 Magnesium 1.5 L Assessment and Plan (1) Hypokalemia: Status: Acute (2) C. difficile colitis: Status: Acute Plan 42/F with alcohol dependency, h/o TOA, anxiety do, diverticular disease here with? abdominal pain, n/v diarrhea and found to have mild pancolitis and CT, + cdif and abnormal electrolytes (K, mag, Na) C dif Colitis and diarrhea - POA. Started on Dificid 08/26/22 (d4/10), IV Flagyl since 08/25 (stop when diarrhea improves), supportive care, IVF to replace fluid loss. Imodium PRN sparingly Severe HypOkalemia and? HYpOmagnesemia--related to alcohol use disorder and diarrhea. Replaced with IV and PO K, IV mag now normal, continue to replace as needed Hepatic steatosis with elevated LFTs--from chronic alcoholism, stable Pancytopenia--due to chronic alcohol use and alcoholic liver disease (WBC now normal) Alcohol use disorder--Phenobarbital to prevent full blown withdrawal, as she drinks rather heavily, addiction med following, continue Naltrexone Need for inpatient: C dif colitis with persistent diarrhea, low BP and need to close monitoring of electyrolyte dvt prophylaxis: early ambulation d/t pancytopenia, compression device Discharge when diarrhea is controlled. Time Spent With Patient Time: Total time managing care of this patient today ____ minutes. Quality Stroke Does the patient have a stroke diagnosis?: No VTE Prior VTE?: No VTE Risk Level:: Medical - low VTE Device Contraindication: Treatment Not Indicated VTE Drug Contraindication: N/A - Med Ordered
[2022-08-29] MEDS: Sertraline HCL 50 MG TABLET PO (09:02)
[2022-08-29] MEDS: Multivitamin TABLET 1 TAB PO (09:02)
[2022-08-29] MEDS: Naltrexone HCl 50 MG TABLET PO (09:02)
[2022-08-29] MEDS: PHENobarbitaL 15 MG TABLET PO (09:02)
[2022-08-29] MEDS: Fidaxomicin 200 MG TABLET PO ×2 (09:02→20:38)
[2022-08-29] MEDS: Potassium Chloride Packet 20 MEQ PACKET 40 MEQ PO (09:02)
[2022-08-29] MEDS: metroNIDAZOLE/NS 500 MG/100 ML PIGGYBACK 100 MG IV ×2 (10:58→22:34)
[2022-08-29 11:03] VITALS: BP 91/57; PULSE 72; RESP 18; TEMP 36.1; O2SAT 100
[2022-08-29] MEDS: oxyCODONE HCl Immed Release 5 MG TABLET PO ×2 (11:09→17:23)
--- NOTE | 2022-08-29 13:15 | MHC.RECOVRN ---
Pt has intake appt at the [facility] on 09/02/22 at 1:45PM, pt and CM aware.
--- NOTE | 2022-08-29 13:53 | MHC.CLN ---
Addendum entered by Ella Restrepo, KEVIN 08/29/22 13:56: PATIENT IS POSITIVE FOR C-DIFF. Original Note: NUTRITION WEIGHT DISCREPANCY NOTED. 08/24 =49.8 KG AND 63.5 KG. REPORTS USUAL WEIGHT 125# (56.8 KG). REPORTS THAT HAS BEEN EATING WELL MOST MEALS. NO NEW NUTRITION INTERVENTIONS AT THIS TIME.
--- NOTE | 2022-08-29 15:10 | PM.EVENT ---
Event Note Date of Service: 08/29/22 Event Note: Addiction consult placed for patient Seen by poultry vaccinator, please see note dates 08/27/22 [facility] follow up appt scheduled Time Spent With Patient Time: Total time managing care of this patient today ____ minutes.
[2022-08-29 15:39] VITALS: BP 99/71; PULSE 74; RESP 17; TEMP 36.4; O2SAT 100
--- NOTE | 2022-08-29 15:52 | MHC.CM.PN ---
per rounds pt expected to dc 1 to 2 days pt has appt 09/02 at [facility]/1:45
[2022-08-29] MEDS: ondansetron HCL 4 MG/2 ML VIAL IVPUSH (17:23)
[2022-08-29 19:25] VITALS: BP 103/68; PULSE 74; RESP 16; TEMP 36.1; O2SAT 98
[2022-08-29] MEDS: Ibuprofen 600 MG TABLET PO (20:38)
[2022-08-30] VITALS (7 sets, daily range): BP systolic 94–117; BP diastolic 55–73; PULSE 63–94; RESP 14–18; TEMP 36.1–36.5; O2SAT 99–100
[2022-08-30] MEDS: oxyCODONE HCl Immed Release 5 MG TABLET PO ×4 (00:11→20:15)
[2022-08-30] MEDS: Naltrexone HCl 50 MG TABLET PO (07:27)
[2022-08-30] MEDS: Potassium Chloride Packet 20 MEQ PACKET 40 MEQ PO (07:27)
[2022-08-30] MEDS: Fidaxomicin 200 MG TABLET PO ×2 (07:27→20:15)
[2022-08-30] MEDS: PHENobarbitaL 15 MG TABLET PO (07:28)
[2022-08-30] MEDS: Multivitamin TABLET 1 TAB PO (07:28)
[2022-08-30] MEDS: Sertraline HCL 50 MG TABLET PO (07:28)
[2022-08-30] MEDS: cloNIDine HCL 0.1 MG TABLET PO (10:53)
[2022-08-30] MEDS: metroNIDAZOLE/NS 500 MG/100 ML PIGGYBACK 100 MG IV ×2 (10:53→22:49)
[2022-08-30] MEDS: ondansetron HCL 4 MG/2 ML VIAL IVPUSH (10:59)
[2022-08-30] MEDS: Famotidine 20 MG TABLET PO (12:19)
--- NOTE | 2022-08-30 12:28 | HO.PM.IMPN ---
Subjective Subjective Date of Service: 08/30/22 Interval History: ?n/v, alcohol withdrawal, abnormal electrolytes and c diff Review of Systems Patient is still having significant diarrhea, some abdominal discomfort . Denies any chest pain or shortness of breath Physical Exam Vital Signs: Vital Signs: Last Vital Signs Temp 97.7 F 08/30/22 07:51 Pulse 94 08/30/22 07:51 Resp 16 08/30/22 07:51 BP 116/73 08/30/22 07:51 Pulse Ox 100 08/30/22 07:51 O2 Del Method Room Air 08/30/22 07:51 BMI result Body Mass Index 17.7 General: AO X 3, no acute distress Resp:? CTA bilateral CVS: S1,S2,RRR GI: +BS, NT, no distention Skin: No rash Neuro:? motor grossly intact Psych: appropriate affect Objective Data Active Medications Clonidine HCl (Clonidine Hcl 0.1 Mg Tablet) 0.1 mg PO TID PRN; Protocol PRN Reason: Anxiety Last Admin: 08/30/22 10:53 Dose: 0.1 mg Documented By: GONZALO Famotidine (Famotidine 20 Mg Tablet) 20 mg PO DAILY [facility] Last Admin: 08/30/22 12:19 Dose: 20 mg Documented By: GONZALO Fidaxomicin (Fidaxomicin 200 Mg Tablet) 200 mg PO BID [facility] Last Admin: 08/30/22 07:27 Dose: 200 mg Documented By: GONZALO Metronidazole (Flagyl) 500 mg in 100 mls @ 100 mls/hr IV Q12H [facility] Last Infusion: 08/30/22 12:21 Dose: 0 mls/hr Documented By: GONZALO Ibuprofen (Ibuprofen 600 Mg Tablet) 600 mg PO Q6H PRN PRN Reason: moderate pain Last Admin: 08/29/22 20:38 Dose: 600 mg Documented By: OZORALB Multivitamins/Vitamin C (Multivitamin Tablet) 1 tab PO DAILY [facility] Last Admin: 08/30/22 07:28 Dose: 1 tab Documented By: GONZALO Naltrexone HCl (Naltrexone Hcl 50 Mg Tablet) 50 mg PO DAILY [facility] Last Admin: 08/30/22 07:27 Dose: 50 mg Documented By: GONZALO Ondansetron HCl (Ondansetron Hcl 4 Mg/2 Ml Vial) 4 mg IVPUSH Q8H PRN PRN Reason: nausea Last Admin: 08/30/22 10:59 Dose: 4 mg Documented By: GONZALO Oxycodone HCl (Oxycodone Hcl Immed Release 5 Mg Tablet) 5 mg PO Q6H PRN PRN Reason: Pain, Severe (Pain Scale 7-10) Last Admin: 08/30/22 06:42 Dose: 5 mg Documented By: NICOLASA Pharmacy Consult (Consult Rx Perform Med Rec) 1 each MISCELLANE ONCE PRN PRN Reason: Consult order Pharmacy Consult (Consult Rx Etoh Phenob Im/Po) 1 each MISCELLANE ONCE PRN; Protocol PRN Reason: Consult order Potassium Chloride (Potassium Chloride Packet 20 Meq Packet) 40 meq PO DAILY [facility] Last Admin: 08/30/22 07:27 Dose: 40 meq Documented By: GONZALO Propranolol HCl (Propranolol Hcl 10 Mg Tablet) 30 mg PO TID PRN; Protocol PRN Reason: Anxiety Last Admin: 08/28/22 13:02 Dose: 30 mg Documented By: HUI Sertraline HCl (Sertraline Hcl 50 Mg Tablet) 50 mg PO DAILY [facility] Last Admin: 08/30/22 07:28 Dose: 50 mg Documented By: GONZALO Labs 08/29/22 05:41 08/29/22 05:41 Assessment and Plan (1) C. difficile colitis: Status: Acute Plan 42/F with alcohol dependency, h/o TOA, anxiety do, diverticular disease here with? abdominal pain, n/v diarrhea and found to have mild pancolitis and CT, + cdif and abnormal electrolytes (K, mag, Na) C dif Colitis and diarrhea - POA. Started on Dificid 08/26/22 (d5/10), IV Flagyl since 08/25 (stop when diarrhea improves),? supportive care, IVF to replace fluid loss. Imodium PRN sparingly added Gi eval Severe HypOkalemia and? HYpOmagnesemia--related to alcohol use disorder and diarrhea. Replaced with IV and PO K, IV mag now normal, continue to replace as needed Hepatic steatosis with elevated LFTs--from chronic alcoholism, stable Pancytopenia--due to chronic alcohol use and alcoholic liver disease (WBC now normal) Alcohol use disorder--Phenobarbital to prevent full blown withdrawal, as she drinks rather heavily, addiction med following, continue Naltrexone Need for inpatient: C dif colitis with persistent? diarrhea, low BP and need to close monitoring of electyrolyte dvt prophylaxis: early ambulation d/t pancytopenia, compression device inpatient need:C dif Colitis and diarrhea -continue Dificid,Discharge when diarrhea is controlled.Gi eval Time Spent With Patient Time: Total time managing care of this patient today ____ minutes. Quality Stroke Does the patient have a stroke diagnosis?: No VTE Prior VTE?: No VTE Risk Level:: Medical - low VTE Device Contraindication: Treatment Not Indicated VTE Drug Contraindication: N/A - Med Ordered
[2022-08-30 14:03] LABS: Magnesium 1.6 mg/dL (1.6-2.6)
[2022-08-30] MEDS: Ibuprofen 600 MG TABLET PO (17:14)
[2022-08-31] MEDS: oxyCODONE HCl Immed Release 5 MG TABLET PO ×4 (02:36→14:12)
[2022-08-31 03:16] VITALS: BP 106/73; PULSE 66; RESP 16; TEMP 36.2; O2SAT 98
[2022-08-31 03:41] VITALS: RESP 18
[2022-08-31 07:10] VITALS: BP 115/71; PULSE 75; RESP 18; TEMP 36.6; O2SAT 99
[2022-08-31] MEDS: cloNIDine HCL 0.1 MG TABLET PO (08:32)
[2022-08-31] MEDS: Multivitamin TABLET 1 TAB PO (08:32)
[2022-08-31] MEDS: Potassium Chloride Packet 20 MEQ PACKET 40 MEQ PO (08:32)
[2022-08-31] MEDS: Famotidine 20 MG TABLET PO (08:32)
[2022-08-31] MEDS: Sertraline HCL 50 MG TABLET PO (08:32)
[2022-08-31] MEDS: Naltrexone HCl 50 MG TABLET PO (08:32)
[2022-08-31] MEDS: Fidaxomicin 200 MG TABLET PO (08:32)
[2022-08-31] MEDS: ondansetron HCL 4 MG/2 ML VIAL IVPUSH (09:48)
[2022-08-31] MEDS: metroNIDAZOLE/NS 500 MG/100 ML PIGGYBACK 100 MG IV (11:23)
--- NOTE | 2022-08-31 12:43 | PM.DS ---
DS: Providers Provider Date of Service: 08/31/22 Date of admission: 08/24/22 07:40 Date of discharge: 08/31/22 Primary care physician: Ollie Pulliam PA-C Consults: 08/24/22 09:14 Addiction Medicine Routine Consulting Provider: Addiction Covering Reason for consultation: heavy alcoholic Has provider been notified: No Consult to Gastroenterology Routine Consulting Provider: Mark Lebron Reason for consultation: pancolitis Attending physician on discharge: Berta Gutiérrez Discharging clinician: Berta Gutiérrez DS: Diagnosis Discharge Diagnosis (1) C. difficile colitis: Status: Acute DS: Summary Hospital Course Hospital Course: 42-year-old female with pertinent history of alcohol use disorder, generalized anxiety disorder, celiac disease, history of ovarian abscess, diverticular disease, last colonoscop and EGD 03/14 presenting with moderate to severe abdominal pain most porominent in the left lower quadrant, ongoing for about a week, associated with nause and vomitting. CT show mild pancolitis, ovarian cyst, normal WBC, K 2.8, mag 1.1.? She has been treated with Levaquin and Flagyl, and was attempted to be discharged but cotinues to have nausea and vomitting and hence admission. Hospital course: 42/F with alcohol dependency, h/o TOA, anxiety do, diverticular disease here with? abdominal pain, n/v diarrhea and found to have mild pancolitis and CT, + cdif and abnormal electrolytes (K, mag, Na)- Patient was started on IV antibiotics initially and then subsequently was found to have C diff so changed to Dificid-patient has diarrhea and abdominal pain significantly improved, in addition patient had hypo kalemia and hypomagnesemia which was repleted and resolved. Also had hyponatremia due to fluid loss also improved with hydration. Patient will be going home with p.o. Dificid. left ovarian cyst: Left ovarian cysts measuring up to 4.8 cm in total, increased in size since the prior examination. If these were purely physiologic, they would have been expected to resolve since February 2022. Recommend nonemergent pelvic ultrasound for further evaluation Plan: Complete p.o. Dificid As prescribed for 3 more days. Consider repeating BMP in 1 week. left ovarian cyst-Recommend nonemergent pelvic ultrasound for further evaluation Above management discussed the patient detail and she understand in agreement with above plan, time spent 50 minute. Time Spent with Patient Time attestation: Total time managing care of this patient today ____ minutes. Discharge coordination time: Greater than 30 minutes Quality: Safe Use of Opioids Does Pt have an Active Cancer Diagnosis on the Problem List?: No Quality: Stroke Does the patient have a stroke diagnosis?: No Physical Exam Vital Signs: Vital Signs: Last Vital Signs Temp 97.9 F 08/31/22 07:10 Pulse 75 08/31/22 07:10 Resp 18 08/31/22 07:10 BP 115/71 08/31/22 07:10 Pulse Ox 99 08/31/22 07:10 O2 Del Method Room Air 08/31/22 07:10 BMI result Body Mass Index 17.7 Appearance: Alert.? Oriented X3.? not in distress.? cvs: rrr, [id number] . res: clear to auscultation ,no rhonchii or wheezing abd: no rebound or guarding ,nt, bs present. ext pulses present , no cyanosis . neuro: axo3 , nonfocal. DS: Data Data Completed and Pending Completed studies during hospitalization [Text1]: Procedures Detoxification Services for Substance Abuse Treatment (09/11/21) Labs on day of discharge: Laboratory Results - last 24 hr 08/30/22 11:30 Magnesium 1.6 Imaging Chest x-ray: Radiologist's impression: ITS Impressions Abdomen/Pelvis CT 08/24/22 04:36 IMPRESSION: * Findings suggestive of mild pancolitis. * Severe diffuse hepatic steatosis. * Left ovarian cysts measuring up to 4.8 cm in total, increased in size since the prior examination. If these were purely physiologic, they would have been expected to resolve since February 2022. Recommend nonemergent pelvic ultrasound for further evaluation. * Scattered colonic diverticula without evidence of diverticulitis. Discharge Plan Discharge Anticipated Discharge Date/Time: 08/31/22 11:12 Patient Disposition: Home, Self-Care Discharge Diagnosis: c diff colitis Referrals: comprehensive care center appt 09/02 at 1;45 [Other] - 1 Week Ollie Pulliam PA-C [Primary Care Provider] - 1 Week Discharge Medications: New Dificid 200 mg Tablet 200 mg PO BID Qty: 7 0RF oxycodone 5 mg Tablet 5 mg PO Q6H PRN (Reason: Pain, Severe (Pain Scale 7-10)) Qty: 4 0RF Rx Instructions: Partial Fill upon patient request. Continued multivitamin Tablet 1 tab PO DAILY clonidine HCl 0.1 mg tablet 0.1 mg PO TID PRN (Reason: Anxiety) naltrexone 50 mg tablet 50 mg PO DAILY propranolol 10 mg tablet 30 mg PO TID PRN (Reason: Anxiety) pantoprazole 40 mg tablet,delayed release (DR/EC) 40 mg PO DAILY sertraline 50 mg tablet 50 mg PO DAILY Discharge Orders: Discharge Order (Routine); Ordered 08/31/22 Ordered By: Berta Gutiérrez Diet: Advance to usual diet Activity on Discharge: As tolerated Stand Alone Forms: Patient Portal Discharge page Care Plan Goals: Patient was admitted for C diff colitis-her abdominal pain and diarrhea seems to be improving, tolerating diet-will send her home with p.o. antibiotics. hypokalemia : repleted and resolved. Further management outpatient. Health Concerns: As above. Plan of Treatment: As above. Assessment: As above.
[2022-09-02 22:23] LABS: Calprotectin, Fecal 11 mcg/g
== END 2022-08-31 16:43 | disposition home or self-care (01) | DRG 248 ==
LOC: HO.ED 07:16 → HO.EDOVER 07:47 → HO.S3 08:16
PROVIDERS: Internal Medicine; Admitting Provider Internal Medicine; Emergency Provider Emergency Medicine; PCP Physician Assistant; Visit Provider Internal Medicine
DX: A04.72 Enterocolitis due to Clostridium difficile, not specified as recurrent (principal); D61.818 Other pancytopenia; K70.10 Alcoholic hepatitis without ascites; E83.42 Hypomagnesemia; R63.6 Underweight; Z68.1 Body mass index [BMI] 19.9 or less, adult; E87.6 Hypokalemia; K70.0 Alcoholic fatty liver; F10.139 Alcohol abuse with withdrawal, unspecified; N83.202 Unspecified ovarian cyst, left side; K90.0 Celiac disease; F41.1 Generalized anxiety disorder; Y90.8 Blood alcohol level of 240 mg/100 ml or more; Z87.891 Personal history of nicotine dependence; Z79.899 Other long term (current) drug therapy
CPT/HCPCS: 36415; 74177; 80048; 80051; 80076; 80307; 81001; 82140; 83690; 83735; 83993; 85025; 85027; 85610; 87324; 87493; 89055; 99285; J1200; J1956; J2060; J2270; J2405; J2550; J2560; J3475; Q9967

== ENCOUNTER → 2022-08-24 07:40 | Outpatient (BNV) | payer OTHER, SELFPAY | PROVIDERS: Admitting Provider Internal Medicine; Emergency Provider Emergency Medicine; PCP Physician Assistant; Visit Provider Internal Medicine | DX: A04.72 Enterocolitis due to Clostridium difficile, not specified as recurrent (principal); K51.00 Ulcerative (chronic) pancolitis without complications; E87.6 Hypokalemia | CPT/HCPCS: 99223; 99232; 99233; 99239 ==

== ENCOUNTER → 2022-08-24 07:40 | Outpatient (BNV) | payer OTHER, SELFPAY | PROVIDERS: Admitting Provider Internal Medicine; Emergency Provider Emergency Medicine; PCP Physician Assistant; Visit Provider Nurse Practitioner Psychiatric/Mental Health | DX: F10.239 Alcohol dependence with withdrawal, unspecified (principal) | CPT/HCPCS: 99499 ==

== ENCOUNTER 2022-10-25 18:23 | Inpatient (IN) | payer OTHER, SELFPAY ==
--- NOTE | ~2022-10-25 | XR_ITS ---
EXAMINATION: XR THORACOLUMBAR SPINE CLINICAL INFORMATION: Fall at home. Bulb and the right side of lower thoracic. COMPARISON: None available. TECHNIQUE: 3 views. FINDINGS: The vertebral alignment is normal. No intrinsic bony abnormality. The disc heights and neural foramina are well maintained. The endplates and posterior elements are normal. No fracture or subluxation. The surrounding prevertebral soft tissues are unremarkable. XR/XR thoracic spine 2V IMPRESSION: No compression fractures or subluxations are identified. The disc spaces are preserved. No endplate changes are seen. The prevertebral soft tissues are normal. The foramina are patent.
--- NOTE | ~2022-10-25 | XR_ITS ---
EXAMINATION: XR LUMBOSACRAL SPINE CLINICAL INFORMATION: Fall. Pain. COMPARISON: None available. TECHNIQUE: Three views of the lumbosacral spine. FINDINGS: There are 6 lumbar-type vertebral bodies. Bone alignment is normal. No fracture or dislocation. Disc spaces are normal. XR/XR lumbar spine 2-3V IMPRESSION: No fracture seen.
--- NOTE | ~2022-10-25 | XR_ITS ---
EXAMINATION: XR FEMUR, RIGHT CLINICAL INFORMATION: Right leg pain and bruising. COMPARISON: None available. TECHNIQUE: AP and lateral views of the right femur were obtained. FINDINGS: Normal alignment of the right hip with preserved cartilage space. No displaced fracture of the right femur. XR/XR femur RT 2V IMPRESSION: No acute abnormality.
[2022-10-25 18:36] VITALS: BP 130/84; PULSE 127; RESP 22; TEMP 36.8; O2SAT 95; BMI 19.7
--- NOTE | 2022-10-25 18:38 | ED.GENADULT ---
HPI - General Adult General Chief complaint: ETOH/Substance Use Stated complaint: fall back pain Time Seen by Provider: 10/25/22 19:40 Source: patient Mode of arrival: ambulatory Limitations: no limitations History of Present Illness HPI narrative: Patient comes to the emergency room complaining of back pain. Patient states she was drinking alcohol fell backwards and hurt her back. Related Data Home Medications Medication Instructions Recorded Confirmed clonidine HCl 0.1 mg tablet 0.1 mg PO TID PRN Anxiety 08/24/22 08/24/22 multivitamin 1 tab PO DAILY 08/24/22 08/24/22 naltrexone 50 mg tablet 50 mg PO DAILY 08/24/22 08/24/22 pantoprazole 40 mg tablet,delayed 40 mg PO DAILY 08/24/22 08/24/22 release propranolol 10 mg tablet 30 mg PO TID PRN Anxiety 08/24/22 08/24/22 sertraline 50 mg tablet 50 mg PO DAILY 08/24/22 08/24/22 Previous Rx's Medication Instructions Recorded fidaxomicin 200 mg tablet (Dificid) 200 mg PO BID c diff #7 tabs 08/31/22 oxycodone 5 mg tablet 5 mg PO Q6H PRN Pain, Severe (Pain 08/31/22 Scale 7-10) #4 tabs acetaminophen 500 mg tablet 500 mg PO QID PRN fever or pain 10/25/22 #10 tabs tramadol 50 mg tablet 50 mg PO BID PRN pain #4 tabs 10/25/22 Allergies Allergy/AdvReac Type Severity Reaction Status Date / Time amoxicillin [From Augmentin] Allergy Intermediate Abdominal Verified 10/25/22 18:36 Pain clavulanic acid Allergy Intermediate Abdominal Verified 10/25/22 18:36 [From Augmentin] Pain Sulfa (Sulfonamide Allergy Mild RASH Verified 10/25/22 18:36 Antibiotics) [SULFA (SULFONAMIDE ANTIBIOTICS)] magnesium AdvReac Diarrhea Verified 10/25/22 18:36 Review of Systems Review of Systems: Constitutional : No Weight loss, No Fever, No Chills, No Night Sweats, No Fatigue, No Malaise ENT/Mouth : No Hearing loss, No Ear Pain, No Nasal Congestion, No Sinus Pain, No Hoarseness, No sore throat, No Rhinorrhea, No Swallowing Difficulty Eyes: No Eye Pain, No Swelling, No Redness, No Foreign Body, No Discharge, No Vision Changes Cardiovascular : No Chest Pain, No SOB, No Dyspnea on Exertion, No Orthopnea, No Edema, No Palpitations Respiratory : No Cough, No Sputum, No Wheezing, No Smoke Exposure, No Dyspnea Gastrointestinal : No Nausea, No Vomiting, No Diarrhea, No Constipation, No abdominal Pain, No Hematochezia, No Melena Genitourinary : no irregular bleeding, No Dysuria, No Urinary Frequency, No Hematuria, No Urinary Incontinence, No Urgency, No Flank Pain, No Urinary Flow Changes, No Hesitancy Musculoskeletal : Complaining of back pain No joint pain, No Myalgias, No Joint Swelling Skin : No Skin Lesions, No rash Neuro : No Weakness, No Numbness, No Paresthesias, No Loss of Consciousness, No Dizziness, No Headache Psych : No Anxiety/Panic, No Depression, No SI/HI/AH/VH, admits to drinking alcohol heavily, Heme/Lymph: No Bruising, No Bleeding,No Lymphadenopathy Endocrine : No Polyuria, No Polydipsia, No Temperature Intolerance [facility] Past Medical History Medical History Alcohol abuse Anxiety Diverticulitis Pelvic abscess in female Surgical History No pertinent past surgical history Family History Family History Father Medical history unknown Mother Medical history unknown Paternal Grandfather Cancer Sister Epilepsy Daughter In good health Son In good health Social History Social History Household Members: Significant Other Housing: Apartment Do you presently have visiting nurse or other home services: No Alcohol intake: current Alcohol intake frequency: 3 or more drinks per day Alcohol type: beer and wine Patient Tobacco Use Status: Former Tobacco user Quit Date: 2006 Tobacco use type: Cigarette Smoked in Last 30 Days: No e-Cigarette/Vaping Use: Former Use Second Hand Smoke Exposure: No Use of substances other than those prescribed or required for medical reasons: No Advance Directives: Yes Advance Directives on File: Yes Advance Directives Date on File: 01/25/21 Patient : No service: No Current occupational status: unemployed Cognitive needs: No Hearing needs: No Vision needs: No Physical Exam ED Vital Signs: Vital Signs - 24 hr 10/25/22 18:36 10/25/22 19:31 10/25/22 20:31 Temperature 98.3 F 98.2 F Pulse Rate 127 H 112 H 120 H Respiratory Rate 22 H 20 22 H Blood Pressure 130/84 137/96 H 124/88 Pulse Oximetry 95 100 98 Oxygen Delivery Method Room Air Nasal Cannula Room Air Oxygen Flow Rate 2 10/25/22 23:04 10/26/22 00:04 10/26/22 02:19 Temperature 98.6 F Pulse Rate 103 H 117 H 122 H Respiratory Rate 18 13 12 Blood Pressure 135/90 H 120/76 112/71 Pulse Oximetry 95 93 Oxygen Delivery Method Room Air Room Air Oxygen Flow Rate 10/26/22 04:00 10/26/22 06:25 10/26/22 07:53 Temperature 97.8 F 98.0 F 98.4 F Pulse Rate 108 H 117 H 137 H Respiratory Rate 12 12 18 Blood Pressure 122/88 131/84 122/86 Pulse Oximetry 93 94 96 Oxygen Delivery Method Room Air Room Air Room Air Oxygen Flow Rate BMI result Body Mass Index 19.7 Const Other: Appearance: Alert. Oriented X3. No acute distress. He is intoxicated Eyes: Pupils equal, round and reactive to light. ENT: Pharynx normal. Neck: Normal inspection. Neck supple. No lymph nodes noted. No crepitus CVS: Normal heart rate and rhythm. Pulses normal. Normal S1 and S2 Respiratory: No respiratory distress. Breath sounds normal. No Wheezing. No rales Abdomen: Soft and nontender. No rigidity. No distention. Skin: Skin warm and dry. Normal skin color. Normal skin turgor. Ecchymosis to the right side of the lower back Extremities: No lower extremity edema. No Lacerations. No Rash, no thoracic or lumbar spine tenderness Neuro: Oriented X 3. No motor deficit. No sensory deficit. Moving all extremities. No slurred speech. CN 2 through 12 grossly intact Psych: calm, cooperative, normal affect Course Course Course Narrative: This is an RME: Additional HPI, ROS, PE not included below will be deferred to primary provider .42 year old female presenting after a fall and in alcohol withdrawal. Patient states she drank half a bottle of wine, last drink 11am. She fell and hit her back on a table. She has gone through full withdrawal and seized previously. No SI/HI. Plan: labs, ekg, sending straight back -804--10/26/22--physician observation continued. Labs and imaging reviewed. Patient notably tachycardic this morning, sinus tach on monitor, IVF running, 2 mg of IV Ativan ordered, CIWA 14. Will continue to monitor. Pending recovery consult -1028--patient's tachycardia improving currently 119, is sleeping comfortably, will give additional 2 mg of IV Ativan, totaling 6mg IV today), diaphoretic, mildly shaky. Spoke with recovery team, they exhausted bed search yesterday, patient not interested in going straight from the ED to detox due to home situation. Persistently tachy will admit for ETOH withdrawal, case discussed with hospitalist Dr. Gutiérrez Medications Administered Discontinued Medications Generic Name Dose Route Start Last Admin Trade Name Freq PRN Reason Stop Dose Admin Sodium Chloride 1,000 mls @ 999 mls/hr 10/25/22 19:49 10/25/22 22:55 Ns IVCONT 10/25/22 20:49 Infused .Q1H1M ONE Infusion Sodium Chloride 1,000 mls @ 999 mls/hr 10/26/22 08:15 10/26/22 09:10 Ns IV 10/26/22 09:15 Infused .Q1H1M GHASSAN Infusion Ketorolac Tromethamine 15 mg 10/26/22 08:43 10/26/22 08:55 Ketorolac Tromethamine 15 Mg/Ml Vial IVPUSH 10/26/22 08:44 15 mg ONCE ONE Administration Lorazepam 2 mg 10/25/22 19:49 10/25/22 19:51 Lorazepam 2 Mg/Ml Vial IVPUSH 10/25/22 19:50 2 mg ONCE ONE Administration Lorazepam 1 mg 10/26/22 04:06 10/26/22 04:13 Lorazepam 2 Mg/Ml Vial IVPUSH 10/26/22 04:07 1 mg ONCE ONE Administration Lorazepam 2 mg 10/26/22 08:03 10/26/22 08:09 Lorazepam 2 Mg/Ml Vial IVPUSH 10/26/22 08:04 2 mg ONCE ONE Administration Lorazepam 2 mg 10/26/22 08:42 10/26/22 08:47 Lorazepam 2 Mg/Ml Vial IVPUSH 10/26/22 08:43 2 mg ONCE ONE Administration Morphine Sulfate 4 mg 10/25/22 19:49 10/25/22 19:54 Morphine Sulfate 4 Mg/Ml Cartridge IVPUSH 10/25/22 19:50 4 mg ONCE ONE Administration Protocol Ondansetron HCl 4 mg 10/25/22 19:49 10/25/22 19:54 Ondansetron Hcl 4 Mg/2 Ml Vial IVPUSH 10/25/22 19:50 4 mg ONCE ONE Administration Tramadol HCl 50 mg 10/25/22 22:14 10/25/22 22:57 Tramadol Hcl 50 Mg Tablet PO 10/25/22 22:15 50 mg ONCE ONE Administration Medical Decision Making Medical Decision Making MDM Narrative: -my interpretation of labs: Patient's alcohol level for 407. Patient is not withdrawing as she claims when she arrived, patient is intoxicated. -the care team/control and recovery combat rescue search for detox beds but there is nothing available, they gave her information to make her own phone calls -when clinically sober, patient can be discharged. Discussed with the patient the plan, agrees. Patient requesting more pain medication, patient will given a dose of tramadol. -sign-out given to Dr. Davis Differential Diagnosis Differential Diagnoses: The differential diagnosis associated with the presentation includes (Alcohol intoxication, chronic back pain) Admission/Observation Consideration of admission/observation: Escalation of care including admission/observation considered (Patient is under observation, once sober, she can be discharged.) Lab Data 10/25/22 19:22 10/25/22 19:22 Labs: Lab Results 10/25/22 10/25/22 10/25/22 Range/Units 19:22 19:22 19:30 WBC 6.7 (4.8-10.8) X10*3/uL RBC 4.16 L (4.20-5.50) X10*6/uL Hgb 12.1 (12.0-16.0) g/dl Hct 35.0 L (37.0-47.0) % MCV 84.1 (80.0-98.0) fL MCH 29.1 (27.0-33.0) pg MCHC 34.6 (31.0-35.0) g/dl RDW 15.5 (11.0-16.0) % Plt Count 125 L (160-400) X10*3/uL MPV 9.7 (9.4-12.3) fL Immature Gran % (Auto) 0.1 (0.0-0.4) % Neut % (Auto) 60.7 (45-73) % Lymph % (Auto) 30.5 (20-40) % [place] % (Auto) 7.9 (2-11) % Eos % (Auto) 0.1 (0-4) % Baso % (Auto) 0.7 (0-2) % Lymph # (Auto) 2.1 (1.2-4.9) X10*3/uL [place] # (Auto) 0.5 (0.1-1.2) X10*3/uL Eos # (Auto) 0.0 (0.0-0.4) X10*3/uL Baso # (Auto) 0.1 (0.0-0.2) X10*3/uL Abs Immat Gran (auto) 0.01 (0.00-0.03) X10*3/uL Absolute Neuts (auto) 4.1 (2.0-8.3) x10*3/uL Absolute Nucleated RBC 0.000 (0.0-0.012) X10*3/uL Nucleated RBC % (auto) 0.0 (0.0-0.2) /100WBC Sodium 140 (135-145) mmol/L Potassium 4.0 (3.3-5.1) mmol/L Chloride 100 (96-108) mmol/L Carbon Dioxide 21 L (22-29) mmol/L Anion Gap 23 H (12-20) BUN 5 L (9-16) mg/dL Creatinine 0.55 (0.5-1.4) mg/dL Estim Creat Clear Calc 107.4 Estimated GFR > 60 Random Glucose 112 (60-115) mg/dL Calcium 9.5 D (8.4-10.2) mg/dL Magnesium 1.8 (1.6-2.6) mg/dL Total Bilirubin 0.8 (0.0-1.0) mg/dL AST 184 H (5-31) U/L ALT 61 H (0-31) U/L Alkaline Phosphatase 148 H (39-117) U/L Total Protein 8.4 H (6.5-8.0) g/dL Albumin 4.4 (3.5-5.0) g/dL Urine Color Yellow Urine Appearance Clear Urine pH 6.0 (5.0-9.0) Ur Specific [place] <= 1.005 (1.005-1.025) Urine Protein Negative (Neg-Trace) mg/dL Urine Glucose (UA) Negative (Negative) mg/dL Urine Ketones Negative (Negative) mg/dL Urine Blood Negative (Negative) Urine Nitrite Negative (Negative) Ur Leukocyte Esterase Negative (Negative) Urine Opiates Screen (Not Detect) Urine Fentanyl Screen (Not Detect) Ur Barbiturates Screen (Not Detect) Ur Phencyclidine Scrn (Not Detect) Ur Amphetamines Screen (Not Detect) U Benzodiazepines Scrn (Not Detect) Urine Cocaine Screen (Not Detect) U Marijuana (THC) Screen (Not Detect) Ethyl Alcohol 407 H* mg/dL 10/25/22 Range/Units 19:30 WBC (4.8-10.8) X10*3/uL RBC (4.20-5.50) X10*6/uL Hgb (12.0-16.0) g/dl Hct (37.0-47.0) % MCV (80.0-98.0) fL MCH (27.0-33.0) pg MCHC (31.0-35.0) g/dl RDW (11.0-16.0) % Plt Count (160-400) X10*3/uL MPV (9.4-12.3) fL Immature Gran % (Auto) (0.0-0.4) % Neut % (Auto) (45-73) % Lymph % (Auto) (20-40) % [place] % (Auto) (2-11) % Eos % (Auto) (0-4) % Baso % (Auto) (0-2) % Lymph # (Auto) (1.2-4.9) X10*3/uL [place] # (Auto) (0.1-1.2) X10*3/uL Eos # (Auto) (0.0-0.4) X10*3/uL Baso # (Auto) (0.0-0.2) X10*3/uL Abs Immat Gran (auto) (0.00-0.03) X10*3/uL Absolute Neuts (auto) (2.0-8.3) x10*3/uL Absolute Nucleated RBC (0.0-0.012) X10*3/uL Nucleated RBC % (auto) (0.0-0.2) /100WBC Sodium (135-145) mmol/L Potassium (3.3-5.1) mmol/L Chloride (96-108) mmol/L Carbon Dioxide (22-29) mmol/L Anion Gap (12-20) BUN (9-16) mg/dL Creatinine (0.5-1.4) mg/dL Estim Creat Clear Calc Estimated GFR Random Glucose (60-115) mg/dL Calcium (8.4-10.2) mg/dL Magnesium (1.6-2.6) mg/dL Total Bilirubin (0.0-1.0) mg/dL AST (5-31) U/L ALT (0-31) U/L Alkaline Phosphatase (39-117) U/L Total Protein (6.5-8.0) g/dL Albumin (3.5-5.0) g/dL Urine Color Urine Appearance Urine pH (5.0-9.0) Ur Specific [place] (1.005-1.025) Urine Protein (Neg-Trace) mg/dL Urine Glucose (UA) (Negative) mg/dL Urine Ketones (Negative) mg/dL Urine Blood (Negative) Urine Nitrite (Negative) Ur Leukocyte Esterase (Negative) Urine Opiates Screen Not Detected (Not Detect) Urine Fentanyl Screen Not Detected (Not Detect) Ur Barbiturates Screen Not Detected (Not Detect) Ur Phencyclidine Scrn Not Detected (Not Detect) Ur Amphetamines Screen Not Detected (Not Detect) U Benzodiazepines Scrn Not Detected (Not Detect) Urine Cocaine Screen Not Detected (Not Detect) U Marijuana (THC) Screen Not Detected (Not Detect) Ethyl Alcohol mg/dL Critical Care Time Critical Care Time Critical Care Time: Yes Total Critical Care Time: 75 Attestation: I have personally provided critical care time. Time includes review of lab data, radiology results, discussion with consultants, and monitoring for potential decompensation. Intervention performed as documented. Discharge Plan Discharge Clinical Impression: Alcohol intoxication, Back contusion, Alcohol withdrawal Patient Disposition: Admitted As Inpatient Instructions: Alcohol Intoxication (ED), Ecchymosis (ED) Additional Instructions: Please follow-up with your primary care physician tomorrow. If you have any worsening or new symptoms, please return to the emergency room or call 911 Prescriptions: New tramadol 50 mg tablet 50 mg PO BID PRN (Reason: pain) Qty: 4 0RF acetaminophen 500 mg tablet 500 mg PO QID PRN (Reason: fever or pain) Qty: 10 0RF No Action multivitamin Tablet 1 tab PO DAILY clonidine HCl 0.1 mg tablet 0.1 mg PO TID PRN (Reason: Anxiety) naltrexone 50 mg tablet 50 mg PO DAILY propranolol 10 mg tablet 30 mg PO TID PRN (Reason: Anxiety) pantoprazole 40 mg tablet,delayed release (DR/EC) 40 mg PO DAILY sertraline 50 mg tablet 50 mg PO DAILY Dificid 200 mg Tablet 200 mg PO BID Qty: 7 0RF oxycodone 5 mg Tablet 5 mg PO Q6H PRN (Reason: Pain, Severe (Pain Scale 7-10)) Qty: 4 0RF Rx Instructions: Partial Fill upon patient request.
--- NOTE | 2022-10-25 18:40 | ECG_ITS ---
Test Reason : withdrawls Blood Pressure : / mmHG Vent. Rate : 111 BPM Atrial Rate : 111 BPM P-R Int : 184 ms QRS Dur : 082 ms QT Int : 332 ms P-R-T Axes : 036 078 042 degrees QTc Int : 451 ms Sinus tachycardia Low voltage QRS Borderline ECG When compared with ECG of 21-NOV-2021 20:43, RI interval has increased Vent. rate has increased BY 43 BPM Referred By: Chandler Do Electronically Signed By:THUY MANZO
[2022-10-25 19:31] VITALS: BP 137/96; PULSE 112; RESP 20; O2SAT 100
[2022-10-25 19:31] LABS: Basophils Absolute Auto 0.1 X10*3/uL (0.0-0.2); Hemoglobin 12.1 g/dl (12.0-16.0); Mean Corpuscular Hemoglobin 29.1 pg (27.0-33.0); PLT CLUMP 1; Red Blood Count 4.16 X10*6/uL (4.20-5.50); Red Cell Distribution Width 15.5 % (11.0-16.0); SCAN SMEAR FLAG 1
[2022-10-25 19:33] LABS: Basophils Percent Auto 0.7 % (0-2); Eosinophils Percent Auto 0.1 % (0-4); Imm Gran Abs Auto 0.01 X10*3/uL (0.00-0.03); Imm Gran Pct Auto 0.1 % (0.0-0.4); Lymphocytes Absolute Auto 2.1 X10*3/uL (1.2-4.9); Lymphocytes Percent Auto 30.5 % (20-40); Mean Corpuscular HGB Conc 34.6 g/dl (31.0-35.0); Mean Corpuscular Volume 84.1 fL (80.0-98.0); Mean Platelet Volume 9.7 fL (9.4-12.3); Monocytes Absolute Auto 0.5 X10*3/uL (0.1-1.2); Monocytes Percent Auto 7.9 % (2-11); Neutrophils Absolute Auto 4.1 x10*3/uL (2.0-8.3); Neutrophils Percent Auto 60.7 % (45-73)
[2022-10-25 19:36] LABS: White Blood Count 6.7 X10*3/uL (4.8-10.8)
[2022-10-25 19:37] LABS: MANUAL DIFF FLAG NO; Platelet Count 125 X10*3/uL (160-400)
[2022-10-25 19:44] LABS: Alanine Aminotransferase 61 U/L (0-31); Albumin Level 4.4 g/dL (3.5-5.0); Alkaline Phosphatase 148 U/L (39-117); Anion Gap 23 (12-20); Aspartate Amino Transferase 184 U/L (5-31); Bilirubin Total 0.8 mg/dL (0.0-1.0); Blood Urea Nitrogen 5 mg/dL (9-16); Calcium 9.5 mg/dL (8.4-10.2); Carbon Dioxide 21 mmol/L (22-29); Chloride 100 mmol/L (96-108); Creatinine Clr Calc Pharmacy 107.4; Estimated Glomerular Filt Rate > 60; Ethanol 407 mg/dL; Glucose Random 112 mg/dL (60-115); Magnesium 1.8 mg/dL (1.6-2.6); Sodium 140 mmol/L (135-145); Total Protein 8.4 g/dL (6.5-8.0)
[2022-10-25] MEDS: LORazepam 2 MG/ML VIAL IVPUSH (19:51)
[2022-10-25] MEDS: 0.9 % Sodium Chloride 1,000 ML 999 ML IVCONT (19:52)
[2022-10-25] MEDS: Morphine Sulfate 4 MG/ML CARTRIDGE IVPUSH (19:54)
[2022-10-25] MEDS: ondansetron HCL 4 MG/2 ML VIAL IVPUSH (19:54)
[2022-10-25 19:57] LABS: Appearance Urine Clear; Color Urine Yellow; Glucose Urine UA Negative (Negative); Leukocyte Esterase Urine Negative (Negative); Nitrite Urine Negative (Negative); Specific Gravity - Urine <= 1.005 (1.005-1.025); Urine Blood Negative (Negative); Urine Ketones Negative (Negative); Urine Protein Negative (Neg-Trace)
[2022-10-25 20:11] LABS: Amphetamine Screen Urine Not Detected (Not Detect); Barbiturates, Urine Not Detected (Not Detect); Benzodiazepines Screen Urine Not Detected (Not Detect); Cannabinoid Screen Urine Not Detected (Not Detect); Cocaine Screen Urine Not Detected (Not Detect); Fentanyl, urine Not Detected (Not Detect); Opiate Screen Urine Not Detected (Not Detect); Phencyclidine Screen Urine Not Detected (Not Detect)
[2022-10-25 20:31] VITALS: BP 124/88; PULSE 120; RESP 22; TEMP 36.8; O2SAT 98
[2022-10-25] MEDS: traMADoL HCL 50 MG TABLET PO (22:57)
[2022-10-25 23:04] VITALS: BP 135/90; PULSE 103; RESP 18
[2022-10-26] VITALS (9 sets, daily range): BP systolic 112–131; BP diastolic 71–88; PULSE 108–137; RESP 12–20; TEMP 36.6–37.4; O2SAT 93–97; BMI 21.0
--- NOTE | 2022-10-26 01:30 | PC.NURSE ---
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 MD Davis aware. verbal order for consult to care team placed
[2022-10-26] MEDS: LORazepam 2 MG/ML VIAL 1 MG IVPUSH (04:13)
--- NOTE | 2022-10-26 04:22 | PC.NURSE ---
pt anxious continues to ask for something to help her sleep, reports tremors, anxiety, agitation and nausea. MD Davis aware. medicated per mar with ativan for etoh w/d symptoms. pt on air sampling and monitoring. call anguiano within reach
--- NOTE | 2022-10-26 07:54 | PC.NURSE ---
pt a&ox3, vss and up to date. sinus tachy on the potline monitor. IVF still hung and running. pt verbalizing 8/10 lower back pain d/t her falling into the coffee table. heat pack applied to affected area. pt verbalizing nausea and anxiety but denies agitation. call anguiano placed within reach.
--- NOTE | 2022-10-26 08:04 | PC.NURSE ---
CIWA = 14. will notify provider.
[2022-10-26] MEDS: LORazepam 2 MG/ML VIAL IVPUSH ×3 (08:09→10:34)
[2022-10-26] MEDS: 0.9 % Sodium Chloride 1,000 ML 999 ML IV (08:09)
--- NOTE | 2022-10-26 08:14 | PC.NURSE ---
provider aware of pt's CIWA scale. medication administered per provider order. will reassess anxiety level shortly.
[2022-10-26] MEDS: Ketorolac Tromethamine 15 MG/ML VIAL IVPUSH (08:55)
--- NOTE | 2022-10-26 08:57 | PC.NURSE ---
pt still currently sinus tachy on the clinical research monitor. provider aware. medication administered per provider order. call anguiano placed within reach.
--- NOTE | 2022-10-26 10:24 | MHC.RECOVRN ---
T/w met with pt to discuss recovery goals. Pt states she drinks a sleeve of nips daily, that she used to drink wine but was told that drinking nips would be a better bang for her morrison Reports last drink was yesterday around noon. Pt endorsing I can't do this anymore Pt reports she has a hx of complicated withdrawal - has had tremors and AVH. Reports she has previously completed detox programs. Pt with folder of resources provided to her by recovery team. When asked about detox bedsearch, pt stating she would prefer to wait until she gets things at home situated, asking for detox search 1-2 days after discharge
--- NOTE | 2022-10-26 10:37 | PC.NURSE ---
vss and up to date, sinus tachy on the relations manager. medications administered per provider order. pt verbalizing extreme headache. pt states that she is feeling anxious/agitated and is severely perspirating while resting in bed. call lights dimmed. will update provider on status of pt. call anguiano placed within reach.
--- NOTE | 2022-10-26 11:03 | MHC.RECOVSUP ---
Met with pt in ED8 who is here for BRIANNE. Pt reports wanting ATS last night but today is not ready. Pt was provided resources and is set to be admitted.
[2022-10-26] MEDS: PHENobarbitaL sodium 130 MG/ML IM ONCE 208 MG IM (11:14)
--- NOTE | 2022-10-26 11:17 | PC.NURSE ---
medications administered per provider order.
--- NOTE | 2022-10-26 11:34 | PC.NURSE ---
pt's mother contacted this rn on status update on pt. pt's mother states that she will be coming in at some point today.
--- NOTE | 2022-10-26 12:43 | P.HPHOSP_ITS ---
History of Present Illness Date of Service: 10/26/22 Chief Complaint: fall This is a 42 year old female with PMH of alochol use disorder with prior admissions for withdrawal and anxiety/depression, who presented to [facility] on 10/25/22 after sustaining a mechanical fall while vacuuming. There was no LOC or seizure like activity reported. The patient reports that she landed on her back and subsequently presented to the ED for detxo/back pain. Since arrival to the ED, the patient's work up for her back pain has been negative. She was treated with IV and oral analgesics for her back pain.She reports a history of heavy alcohol use -- at least 10 drinks daily. She reports prior withdrawal symptoms and admission for the same. She denies history of DTs. She also endorses being on MAT for alcohol use disorder, but has not taken it in weeks. This morning, patient began exhibiting signs and symptoms of alcohol withdrawal and was initially treated with IV ativan (7mg total of IV ativan has been administered). However, she continued to exhibit withdrawal symptoms with elevated BP readings in the 170s/110s and tachycardic in the 120-140 range at rest. She has been initiated on phenobarb and now will be admitted for further management of alcohol withdrawal syndome. Review of Systems Review of Systems: Negative except HPI/interval history. [facility] Medical History Alcohol abuse Anxiety Diverticulitis Pelvic abscess in female Family History Father Medical history unknown Mother Medical history unknown Paternal Grandfather Cancer Sister Epilepsy Daughter In good health Son In good health Surgical History No pertinent past surgical history Social History Household Members: Significant Other Housing: Apartment Do you presently have visiting nurse or other home services: No Alcohol intake: current Alcohol intake frequency: 3 or more drinks per day Alcohol type: beer and wine Patient Tobacco Use Status: Former Tobacco user Quit Date: 2006 Tobacco use type: Cigarette Smoked in Last 30 Days: No e-Cigarette/Vaping Use: Former Use Second Hand Smoke Exposure: No Use of substances other than those prescribed or required for medical reasons: No Advance Directives: Yes Advance Directives on File: Yes Advance Directives Date on File: 01/25/21 Nutrition Risks: No Nutritional Risk Patient : No service: No Current occupational status: unemployed Cognitive needs: No Hearing needs: No Vision needs: No Meds Allergies Allergy/AdvReac Type Severity Reaction Status Date / Time amoxicillin [From Augmentin] Allergy Intermediate Abdominal Verified 10/25/22 18:36 Pain clavulanic acid Allergy Intermediate Abdominal Verified 10/25/22 18:36 [From Augmentin] Pain Sulfa (Sulfonamide Allergy Mild RASH Verified 10/25/22 18:36 Antibiotics) [SULFA (SULFONAMIDE ANTIBIOTICS)] magnesium AdvReac Diarrhea Verified 10/25/22 18:36 Active Medications: Current Medications Enoxaparin Sodium (Enoxaparin Sodium 40 Mg/0.4 Ml Syringe) 40 mg SUBCUT Q24H [facility] Ondansetron HCl (Ondansetron Hcl 4 Mg/2 Ml Vial) 4 mg IVPUSH Q8H PRN PRN Reason: Nausea and Vomiting Pharmacy Consult (Consult Rx Etoh Phenob Im/Po) 1 each MISCELLANE ONCE PRN; Protocol PRN Reason: Consult order Phenobarbital (Phenobarbital 15 Mg Tablet) 45 mg PO BID [facility]; Protocol Stop: 10/28/22 09:01 Phenobarbital (Phenobarbital 30 Mg Tablet) 30 mg PO BID [facility]; Protocol Stop: 10/30/22 09:01 Phenobarbital (Phenobarbital 30 Mg Tablet) 30 mg PO Q24H [facility]; Protocol Stop: 10/31/22 21:01 Phenobarbital Sodium (Phenobarbital Sodium 130 Mg/Ml Vial Im Q3hx2) 156 mg IM Q3H [facility]; Protocol Stop: 10/26/22 17:01 Sodium Chloride (0.9 % Sodium Chloride Flush 3 Ml Syringe) 3 ml IVFLUSH QSHIFT [facility] Home Medications Medication Instructions Recorded Confirmed Last Taken Type clonidine HCl 0.1 mg tablet 0.1 mg PO TID PRN Anxiety 08/24/22 10/26/22 Unknown History multivitamin 1 tab PO DAILY 08/24/22 10/26/22 Unknown History naltrexone 50 mg tablet 50 mg PO DAILY 08/24/22 10/26/22 Unknown History pantoprazole 40 mg tablet,delayed 40 mg PO DAILY@0630 08/24/22 10/26/22 Unknown History release propranolol 10 mg tablet 30 mg PO TID PRN Anxiety 08/24/22 10/26/22 Unknown History sertraline 50 mg tablet 50 mg PO DAILY 08/24/22 10/26/22 Unknown History gabapentin 300 mg capsule 300 mg PO BID PRN PAIN/WITHDRAWAL 10/26/22 10/26/22 Unknown History SYMPTOMS mineral oil-hydrophil petrolat 1 appl topical TID PRN ECZEMA 10/26/22 10/26/22 Unknown History topical ointment (Aquaphor topical ointment) polyvinyl alcohol 1.4 % eye drops 1 drp ophthalmic (eye) BID 10/26/22 10/26/22 Unknown History Physical Exam Vital Signs and Narrative: Vital Signs: Last Vital Signs Temp 98.4 F 10/26/22 07:53 Pulse 118 H 10/26/22 10:00 Resp 20 10/26/22 10:00 BP 127/85 10/26/22 10:00 Pulse Ox 97 10/26/22 10:00 O2 Del Method Room Air 10/26/22 10:00 O2 Flow Rate 2 10/25/22 19:31 BMI result Body Mass Index 19.7 Const: Other: Constitutional - Awake and Alert, appears fatigued and uncomfortable; tremulous Eyes - PERRLA, EOMI Cardiovascular - S1S2, RRR, No edema Respiratory - Normal lung expansion, Normal respiratory effort, No respiratory distress, CTA bilaterally Gastrointestinal - NT / ND; +BS; No rebound or guarding - No CVA tenderness Extremities - no calf tenderness bilaterally, no swelling Musculoskeletal - R paraspinal TTP in the lumbar region; negative bony tenderness; SLR negative b/l Skin - Warm/Dry Neurological - Alert & oriented x3, No focal deficit Psychological - Appropriate affect Results Labs 10/25/22 19:22 10/25/22 19:22 Labs: Laboratory Results - last 24 hr 10/25/22 10/25/22 10/25/22 19:22 19:22 19:30 MCV 84.1 MCH 29.1 MCHC 34.6 RDW 15.5 Plt Count 125 L MPV 9.7 Immature Gran % (Auto) 0.1 Neut % (Auto) 60.7 Lymph % (Auto) 30.5 Roberts % (Auto) 7.9 Eos % (Auto) 0.1 Baso % (Auto) 0.7 Lymph # (Auto) 2.1 Roberts # (Auto) 0.5 Eos # (Auto) 0.0 Baso # (Auto) 0.1 Abs Immat Gran (auto) 0.01 Absolute Neuts (auto) 4.1 Absolute Nucleated RBC 0.000 Nucleated RBC % (auto) 0.0 Anion Gap 23 H Estim Creat Clear Calc 107.4 Estimated GFR > 60 Random Glucose 112 Calcium 9.5 D Magnesium 1.8 Total Bilirubin 0.8 AST 184 H ALT 61 H Alkaline Phosphatase 148 H Total Protein 8.4 H Albumin 4.4 Urine Color Yellow Urine Appearance Clear Urine pH 6.0 Ur Specific [place] <= 1.005 Urine Protein Negative Urine Glucose (UA) Negative Urine Ketones Negative Urine Blood Negative Urine Nitrite Negative Ur Leukocyte Esterase Negative Urine Opiates Screen Urine Fentanyl Screen Ur Barbiturates Screen Ur Phencyclidine Scrn Ur Amphetamines Screen U Benzodiazepines Scrn Urine Cocaine Screen U Marijuana (THC) Screen Ethyl Alcohol 407 H* 10/25/22 19:30 MCV MCH MCHC RDW Plt Count MPV Immature Gran % (Auto) Neut % (Auto) Lymph % (Auto) Roberts % (Auto) Eos % (Auto) Baso % (Auto) Lymph # (Auto) Roberts # (Auto) Eos # (Auto) Baso # (Auto) Abs Immat Gran (auto) Absolute Neuts (auto) Absolute Nucleated RBC Nucleated RBC % (auto) Anion Gap Estim Creat Clear Calc Estimated GFR Random Glucose Calcium Magnesium Total Bilirubin AST ALT Alkaline Phosphatase Total Protein Albumin Urine Color Urine Appearance Urine pH Ur Specific [place] Urine Protein Urine Glucose (UA) Urine Ketones Urine Blood Urine Nitrite Ur Leukocyte Esterase Urine Opiates Screen Not Detected Urine Fentanyl Screen Not Detected Ur Barbiturates Screen Not Detected Ur Phencyclidine Scrn Not Detected Ur Amphetamines Screen Not Detected U Benzodiazepines Scrn Not Detected Urine Cocaine Screen Not Detected U Marijuana (THC) Screen Not Detected Ethyl Alcohol Imaging Radiologist's Impressions: Impressions Lumbar Spine X-Ray 10/25/22 21:14 IMPRESSION: No fracture seen. Assessment and Plan (1) Alcohol withdrawal: Status: Acute Plan 42 yo F with history of Alcohol use disorder who presented with back pain after a mechanical fall. She has now begun exhibiting signs of withdrawal and hence, will be admitted for further work up. 1. Alcohol use disorder with dependence 1a. acute alcohol withdrawal syndrome Despite IV ativan, patient's CIWA continued to climb > 14-15 range; she is tachycardic and hypertensive Phenobarb has been initiated; will continue to monitor with CIWA with low threshold for addiiontal doses Monitor electrolytes She was previously no Naltrexone via her PCP's office -- consider reinitiation at some point Alcohol cessation has been strongly encouraged Recover team is following 2. Anxiety/Depression Reports not taking meds in >3 weeks At this time, hold off Being managed by PCP and will need f/u with them; advised to schedule f/u with PCP early next week 3. Alcoholic liver disease Seen on prior imaging alcohol cessation has been encouraged will need outpatient f/u Full Code DVT pptx, Lovenox Given her worsening alcohol withdrawal despite attempts with IV ativan and initiation of phenobarb -- I anticipate that she will require at least 2 midnig hts in the hospital for treatment and monitoring of response. Hence, the patient will be admitted as an inpatient. Time Spent With Patient Time: Total time managing care of this patient today ____ minutes. Quality Stroke Does the patient have a stroke diagnosis?: No VTE Prior VTE?: No VTE Risk Level:: Medical - moderate - high VTE Device Contraindication: Treatment Not Indicated VTE Drug Contraindication: N/A - Med Ordered
--- NOTE | 2022-10-26 12:50 | PC.NURSE ---
pt a&ox3, vss, sinus tachy on the promotions specialist. updated CIWA = 6 - will notify provider. pt verbalizing headache present but anxiety and perspiration has slightly decreased. denies agitation/any hallucinations. pharmacy bedside. call anguiano placed within reach.
--- NOTE | 2022-10-26 13:05 | PHA.MEDREC ---
Pharmacy Consult ? Medication Reconciliation Pharmacy has completed the medication reconciliation. Spoke to pt. She is a poor historian and doesn't remember the names of her medications. I read through her claim history and she was able to acknowledge that she is still taking most of the meds she's had filled lately. She states she still takes gabapentin although last fill was in June and also still claims she's taking oxycodone with last fill in July. She says they are prn so I did include them in the home med list. [place] noting that she says she recently started Buspar but doesn't know the dose. She says she took it for 2 weeks then stopped all of her meds for 3 weeks. I did try calling the [facility] in [place] to try and get buspar dose because she says she filled it there but they say they never filled anything for her for Buspar. She was adamant that the buspirone was important because it had helped her for the 2 weeks she was taking it.
[2022-10-26] MEDS: Enoxaparin Sodium 40 MG/0.4 ML SYRINGE SUBCUT (13:30)
--- NOTE | 2022-10-26 13:31 | PC.NURSE ---
medication administered per provider order.
--- NOTE | 2022-10-26 13:40 | PC.NURSE ---
attempted to give report to RN on S3 - RN unavailable at this time. tigertexted RN to call ED for report when able.
[2022-10-26] MEDS: PHENobarbitaL sodium 130 MG/ML VIAL IM Q3Hx2 156 MG IM ×2 (14:21→16:20)
[2022-10-26] MEDS: 0.9 % Sodium Chloride Flush 3 ML SYRINGE IVFLUSH (14:27)
--- NOTE | 2022-10-26 14:29 | PC.NURSE ---
pt was inadvertently brought to S3 by transport without report being called, this nurse called the floor and gave report.
[2022-10-26] MEDS: oxyCODONE HCl Immed Release 5 MG TABLET PO (19:21)
[2022-10-26] MEDS: PHENobarbitaL 15 MG TABLET 45 MG PO (19:59)
[2022-10-26] MEDS: Artificial Tears 15 ML DROPS 1 DROP EYE-BOTH (22:55)
[2022-10-26] MEDS: Lidocaine 4 % Patch ADH..PATCH 1 PATCH TRANSDERMA (22:57)
[2022-10-26] MEDS: PHENobarbitaL sodium 130 MG/ML VIAL IM (23:25)
[2022-10-27 03:17] VITALS: BP 118/82; PULSE 110; RESP 14; TEMP 36.4; O2SAT 97
[2022-10-27] MEDS: Omeprazole 20 MG CAPSULE.DR PO (06:14)
[2022-10-27 07:41] LABS: Hematocrit 33.2 % (37.0-47.0); Hemoglobin 11.3 g/dl (12.0-16.0); Mean Corpuscular Hemoglobin 28.9 pg (27.0-33.0); Mean Corpuscular Volume 84.9 fL (80.0-98.0); Mean Platelet Volume 9.9 fL (9.4-12.3); PLT CLUMP 1; Red Blood Count 3.91 X10*6/uL (4.20-5.50); Red Cell Distribution Width 15.6 % (11.0-16.0)
[2022-10-27 07:42] LABS: White Blood Count 3.7 X10*3/uL (4.8-10.8)
[2022-10-27 07:43] LABS: Platelet Count 92 X10*3/uL (160-400)
[2022-10-27 07:59] LABS: Anion Gap 13 (12-20); Blood Urea Nitrogen 3 mg/dL (9-16); Carbon Dioxide 26 mmol/L (22-29); Chloride 98 mmol/L (96-108); Creatinine Clr Calc Pharmacy 106.8; Estimated Glomerular Filt Rate > 60; Glucose Random 108 mg/dL (60-115); Magnesium 1.4 mg/dL (1.6-2.6); Potassium 3.3 mmol/L (3.3-5.1); Sodium 134 mmol/L (135-145)
[2022-10-27 08:16] VITALS: BP 136/96; PULSE 110; RESP 20; TEMP 36.3; O2SAT 95
[2022-10-27] MEDS: ondansetron HCL 4 MG/2 ML VIAL IVPUSH (08:21)
[2022-10-27] MEDS: PHENobarbitaL 15 MG TABLET 45 MG PO ×2 (08:21→21:20)
[2022-10-27] MEDS: Magnesium Sulfate/H2O 2 GM/50 ML PIGGYBACK IV (08:22)
[2022-10-27] MEDS: 0.9 % Sodium Chloride Flush 3 ML SYRINGE IVFLUSH ×2 (08:23→16:54)
[2022-10-27] MEDS: PHENobarbitaL sodium 130 MG/ML VIAL IM ×2 (09:19→19:01)
[2022-10-27] MEDS: oxyCODONE HCl Immed Release 5 MG TABLET PO ×3 (09:20→23:02)
[2022-10-27 10:10] VITALS: BP 120/80
[2022-10-27] MEDS: Enoxaparin Sodium 40 MG/0.4 ML SYRINGE SUBCUT (12:08)
[2022-10-27] MEDS: Capsaicin 0.025% Cream 60 GM TUBE 1 APPL TOPICAL ×3 (12:10→21:19)
--- NOTE | 2022-10-27 14:28 | MHC.CM.PN ---
EMR REVIEWED, PT ADMITTED W/FALL & ETOH WITHDRAWAL, CM MET W/PT WHO REPORTS SHE LIVES ALONE, IS FULLY INDEP, DENIES USE OF DME/HOME SERVICES, PT CURRENTLY DECLINING ETOH TX, RECOVERY TEAM FOLLOWING. PT'S GOAL FOR D/CIS HOME SELF-CARE, PT'S MOTHER WILL LIKELY TRANSPORT. PCP AND HCP ON FILE VERIFIED AND CORRRECT.
--- NOTE | 2022-10-27 15:22 | HO.PM.IMPN ---
Subjective Subjective Date of Service: 10/27/22 Interval History: Alcohol withdrawal Review of Systems Patient is still very tremulous, anxious, sweaty Otherwise denies any other complaints Physical Exam Vital Signs: Vital Signs: Last Vital Signs Temp 97.3 F 10/27/22 08:16 Pulse 110 H 10/27/22 08:16 Resp 20 10/27/22 08:16 BP 120/80 10/27/22 10:10 Pulse Ox 95 10/27/22 08:16 O2 Del Method Room Air 10/27/22 08:16 O2 Flow Rate 2 10/25/22 19:31 BMI result Body Mass Index 21.0 Appearance: Alert.? Oriented X3.? cvs: rrr, [id number] , no murmur res: clear to auscultation ,no rhonchii or wheezing abd: no rebound or guarding ,nt, bs present. ext pulses present , no cyanosis . neuro: axo3 , nonfocal. Objective Data Active Medications Acetaminophen (Acetaminophen 325 Mg Tablet) 650 mg PO Q6H PRN PRN Reason: Pain, Mild (Pain Scale 1-3) Artificial Tears (Artificial Tears 15 Ml Drops) 1 drop EYE-BOTH Q4H PRN PRN Reason: dry eyes Last Admin: 10/26/22 22:55 Dose: 1 drop Documented By: SARMAD Capsaicin (Capsaicin 0.025% Cream 60 Gm Tube) 1 appl TOPICAL QID [facility]; Protocol Last Admin: 10/27/22 12:10 Dose: 1 appl Documented By: BRICE Enoxaparin Sodium (Enoxaparin Sodium 40 Mg/0.4 Ml Syringe) 40 mg SUBCUT Q24H [facility] Last Admin: 10/27/22 12:08 Dose: 40 mg Documented By: BRICE Lidocaine (Lidocaine 4 % Patch Adh..Patch) 1 patch TRANSDERMA DAILY [facility]; Protocol Last Admin: 10/27/22 11:20 Dose: Not Given Documented By: BRICE Non-Admin Reason: Patient Refused Omeprazole (Omeprazole 20 Mg Capsule.) 20 mg PO DAILY@0630 [facility] Last Admin: 10/27/22 06:14 Dose: 20 mg Documented By: SARMAD Comments: downtime Ondansetron HCl (Ondansetron Hcl 4 Mg/2 Ml Vial) 4 mg IVPUSH Q8H PRN PRN Reason: Nausea and Vomiting Last Admin: 10/27/22 08:21 Dose: 4 mg Documented By: BRICE Oxycodone HCl (Oxycodone Hcl Immed Release 5 Mg Tablet) 5 mg PO Q6H PRN PRN Reason: Pain, Severe (Pain Scale 7-10) Last Admin: 10/26/22 19:21 Dose: 5 mg Documented By: SARMAD Pharmacy Consult (Consult Rx Etoh Phenob Im/Po) 1 each MISCELLANE ONCE PRN; Protocol PRN Reason: Consult order Phenobarbital (Phenobarbital 15 Mg Tablet) 45 mg PO BID [facility]; Protocol Stop: 10/28/22 09:01 Last Admin: 10/27/22 08:21 Dose: 45 mg Documented By: BRICE Phenobarbital (Phenobarbital 30 Mg Tablet) 30 mg PO BID [facility]; Protocol Stop: 10/30/22 09:01 Phenobarbital (Phenobarbital 30 Mg Tablet) 30 mg PO Q24H [facility]; Protocol Stop: 10/31/22 21:01 Sodium Chloride (0.9 % Sodium Chloride Flush 3 Ml Syringe) [facility] Last Admin: 10/27/22 08:23 Dose: 3 ml Documented By: BRICE Labs 10/27/22 07:20 10/27/22 07:20 Labs: Laboratory Results - last 24 hr 10/27/22 07:20 MCV 84.9 MCH 28.9 MCHC 34.0 RDW 15.6 Plt Count 92 L D MPV 9.9 Absolute Nucleated RBC 0.000 Nucleated RBC % (auto) 0.0 Anion Gap 13 Estim Creat Clear Calc 106.8 Estimated GFR > 60 Random Glucose 108 Calcium 9.0 Magnesium 1.4 L* Assessment and Plan (1) Alcohol withdrawal: Status: Acute Plan 42 yo F with history of Alcohol use disorder who presented with back pain after a mechanical fall. She has now begun exhibiting signs of withdrawal and hence, will be admitted for further work up. Alcohol use disorder with dependence/ acute alcohol withdrawal syndrome patient's CIWA still 11; still anxious/tachycardic monitor with CIWA continue Phenobarb , given extra dose of phenobarb IM She was previously no Naltrexone via her PCP's office -- consider reinitiation at some point Alcohol cessation has been strongly encouraged Recover team is following 2. Anxiety/Depression Reports not taking meds in >3 weeks At this time, hold off Being managed by PCP and will need f/u with them; advised to schedule f/u with PCP early next week 3. Alcoholic liver disease Seen on prior imaging alcohol cessation has been encouraged will need outpatient f/u Full Code DVT pptx, Lovenox Ongoing inpatient need: Alcohol withdrawal-with still significant elevated CIWA scale, symptomatic patient-need phenobarb. Time Spent With Patient Time: Total time managing care of this patient today ____ minutes. Quality Stroke Does the patient have a stroke diagnosis?: No VTE Prior VTE?: No VTE Risk Level:: Medical - moderate - high VTE Device Contraindication: Treatment Not Indicated VTE Drug Contraindication: N/A - Med Ordered
[2022-10-27 15:57] VITALS: BP 118/80; PULSE 112; RESP 20; TEMP 37.3; O2SAT 97
[2022-10-27 19:18] VITALS: BP 124/87; PULSE 99; RESP 18; TEMP 36.2; O2SAT 97
[2022-10-27] MEDS: Artificial Tears 15 ML DROPS 1 DROP EYE-BOTH (21:22)
[2022-10-28 04:00] VITALS: BP 97/63; PULSE 100; RESP 18; TEMP 36.3; O2SAT 97
[2022-10-28] MEDS: ondansetron HCL 4 MG/2 ML VIAL IVPUSH ×2 (04:40→18:05)
[2022-10-28] MEDS: Acetaminophen 325 MG TABLET 650 MG PO ×2 (04:40→16:36)
[2022-10-28] MEDS: Omeprazole 20 MG CAPSULE.DR PO (05:10)
[2022-10-28] MEDS: oxyCODONE HCl Immed Release 5 MG TABLET PO ×4 (05:10→23:49)
[2022-10-28] MEDS: PHENobarbitaL sodium 130 MG/ML VIAL IM ×2 (05:11→11:05)
[2022-10-28 07:39] VITALS: BP 120/90; PULSE 106; RESP 20; TEMP 36.9; O2SAT 97
[2022-10-28] MEDS: 0.9 % Sodium Chloride Flush 3 ML SYRINGE IVFLUSH ×3 (08:35→20:16)
[2022-10-28] MEDS: PHENobarbitaL 15 MG TABLET 45 MG PO (08:35)
[2022-10-28] MEDS: Artificial Tears 15 ML DROPS 1 DROP EYE-BOTH (08:43)
--- NOTE | 2022-10-28 09:46 | MHC.CM.PN ---
EMR REVIEWED, P.T. RECOMMENDING STR HOWEVER CM MET W/PT WHO REPORTS SHE DOES NOT WANT STR HOWEVER WILL TAKE SERVICES IN HOME, NO PREFERENCE FOR VNA'S, REFERRAL TO BE SENT, PT WILL NEED PT1 VS [facility] TRANSPORT HOME, CM WILL CONT TO FOLLOW D/C NEEDS.
[2022-10-28] MEDS: Capsaicin 0.025% Cream 60 GM TUBE 1 APPL TOPICAL ×2 (12:37→20:14)
[2022-10-28] MEDS: Enoxaparin Sodium 40 MG/0.4 ML SYRINGE SUBCUT (12:38)
--- NOTE | 2022-10-28 14:46 | HO.PM.IMPN ---
Subjective Subjective Date of Service: 10/28/22 Interval History: alcohol withdrawal Review of Systems tremers and anxious ,still mild tachycardia no nausea or vomitin Physical Exam Vital Signs: Vital Signs: Last Vital Signs Temp 98.5 F 10/28/22 07:39 Pulse 106 H 10/28/22 07:39 Resp 20 10/28/22 07:39 BP 120/90 H 10/28/22 07:39 Pulse Ox 97 10/28/22 07:39 O2 Del Method Room Air 10/28/22 07:39 O2 Flow Rate 2 10/25/22 19:31 BMI result Body Mass Index 21.0 Appearance: Alert.? Oriented X3.anxious/tramulous cvs: rrr, [id number] , no murmur. res: clear to auscultation ,no rhonchii or wheezing abd: no rebound or guarding ,nt, bs present. ext pulses present , no cyanosis . neuro: axo3 , nonfocal. Objective Data Active Medications Acetaminophen (Acetaminophen 325 Mg Tablet) 650 mg PO Q6H PRN PRN Reason: Pain, Mild (Pain Scale 1-3) Last Admin: 10/28/22 04:40 Dose: 650 mg Documented By: SARMAD Artificial Tears (Artificial Tears 15 Ml Drops) 1 drop EYE-BOTH Q4H PRN PRN Reason: dry eyes Last Admin: 10/28/22 08:43 Dose: 1 drop Documented By: BRICE Capsaicin (Capsaicin 0.025% Cream 60 Gm Tube) 1 appl TOPICAL QID [facility]; Protocol Last Admin: 10/28/22 12:37 Dose: 1 appl Documented By: BRICE Enoxaparin Sodium (Enoxaparin Sodium 40 Mg/0.4 Ml Syringe) 40 mg SUBCUT Q24H [facility] Last Admin: 10/28/22 12:38 Dose: 40 mg Documented By: BRICE Lidocaine (Lidocaine 4 % Patch Adh..Patch) 1 patch TRANSDERMA DAILY [facility]; Protocol Last Admin: 10/28/22 11:09 Dose: Not Given Documented By: BRICE Non-Admin Reason: Patient Refused Omeprazole (Omeprazole 20 Mg Matty.) 20 mg PO DAILY@0630 [facility] Last Admin: 10/28/22 05:10 Dose: 20 mg Documented By: SARMAD Ondansetron HCl (Ondansetron Hcl 4 Mg/2 Ml Vial) 4 mg IVPUSH Q8H PRN PRN Reason: Nausea and Vomiting Last Admin: 10/28/22 04:40 Dose: 4 mg Documented By: SARMAD Oxycodone HCl (Oxycodone Hcl Immed Release 5 Mg Tablet) 5 mg PO Q6H PRN PRN Reason: Pain, Severe (Pain Scale 7-10) Last Admin: 10/28/22 12:38 Dose: 5 mg Documented By: BRICE Pharmacy Consult (Consult Rx Etoh Phenob Im/Po) 1 each MISCELLANE ONCE PRN; Protocol PRN Reason: Consult order Phenobarbital (Phenobarbital 30 Mg Tablet) 30 mg PO BID [facility]; Protocol Stop: 10/30/22 09:01 Phenobarbital (Phenobarbital 30 Mg Tablet) 30 mg PO Q24H [facility]; Protocol Stop: 10/31/22 21:01 Sodium Chloride (0.9 % Sodium Chloride Flush 3 Ml Syringe) 3 ml IVFLUSH QSHIFT [facility] Last Admin: 10/28/22 08:35 Dose: 3 ml Documented By: BRICE Labs 10/27/22 07:20 10/27/22 07:20 Labs: Laboratory Results - last 24 hr 10/28/22 09:43 Phenobarbital 36.7 Assessment and Plan (1) Alcohol withdrawal: Status: Acute Plan 42 yo F with history of Alcohol use disorder who presented with back pain after a mechanical fall. She has now begun exhibiting signs of withdrawal and hence, will be admitted for further work up. Alcohol use disorder with dependence/ acute alcohol withdrawal syndrome patient's CIWA still 10; still anxious/tachycardic monitor with CIWA continue Phenobarb , given extra dose of phenobarb 130 mg IM She was previously no Naltrexone via her PCP's office -- consider reinitiation at some point Alcohol cessation has been strongly encouraged Recover team is following 2. Anxiety/Depression Reports not taking meds in >3 weeks At this time, hold off Being managed by PCP and will need f/u with them; advised to schedule f/u with PCP early next week 3. Alcoholic liver disease Seen on prior imaging alcohol cessation has been encouraged will need outpatient f/u Full Code DVT pptx, Lovenox Ongoing inpatient need: Alcohol withdrawal-with still significant elevated CIWA scale, symptomatic patient-need phenobarb. Time Spent With Patient Time: Total time managing care of this patient today ____ minutes. Quality Stroke Does the patient have a stroke diagnosis?: No VTE Prior VTE?: No VTE Risk Level:: Medical - moderate - high VTE Device Contraindication: Treatment Not Indicated VTE Drug Contraindication: N/A - Med Ordered
[2022-10-28 15:40] VITALS: BP 109/74; PULSE 111; RESP 20; TEMP 36.3; O2SAT 98
--- NOTE | 2022-10-28 15:45 | MHC.CM.PN ---
EMR REVIEWED, CM MET W/PT TO DISCUSS DISPO D/T P.T. RECOMMENDING STR, PT REPORTS SHE WOULD DECLINE STR HOWEVER IS OPEN TO HOME PT AND WOULD LIKE [facility], REFERRAL PLACED, CM WILL CONT TO FOLLOW D/C NEEDS.
[2022-10-28 19:08] LABS: Anion Gap 13 (12-20); Blood Urea Nitrogen 4 mg/dL (9-16); Calcium 9.4 mg/dL (8.4-10.2); Carbon Dioxide 25 mmol/L (22-29); Chloride 98 mmol/L (96-108); Creatinine Clr Calc Pharmacy 81.5; Estimated Glomerular Filt Rate > 60; Glucose Random 115 mg/dL (60-115); Magnesium 1.6 mg/dL (1.6-2.6); Potassium 3.6 mmol/L (3.3-5.1); Sodium 132 mmol/L (135-145)
[2022-10-28 19:21] VITALS: BP 101/66; PULSE 98; RESP 18; TEMP 36.6; O2SAT 97
[2022-10-28] MEDS: PHENobarbitaL 30 MG TABLET PO (20:14)
[2022-10-28] MEDS: Bismuth Subsalicylate 262 MG TABLET PO (20:29)
--- NOTE | 2022-10-28 23:45 | MHC.PIE ---
p; pt c/o pain 10/30 to back, neck and head. note; prn tylenol and oxy q6 given at 1851. i; dr wolf notified; ok to give early dose oxy e; will cont to monitor
[2022-10-29] MEDS: oxyCODONE HCl Immed Release 5 MG TABLET PO ×3 (06:16→20:24)
[2022-10-29] MEDS: Omeprazole 20 MG CAPSULE.DR PO (06:16)
[2022-10-29 07:02] VITALS: BP 103/64; PULSE 82; RESP 16; TEMP 37.1; O2SAT 96
[2022-10-29] MEDS: PHENobarbitaL sodium 65 MG/ML VIAL IM (09:09)
[2022-10-29] MEDS: PHENobarbitaL 30 MG TABLET PO ×2 (09:09→20:24)
[2022-10-29] MEDS: 0.9 % Sodium Chloride Flush 3 ML SYRINGE IVFLUSH ×2 (09:10→20:26)
[2022-10-29] MEDS: Capsaicin 0.025% Cream 60 GM TUBE 1 APPL TOPICAL ×2 (09:10→13:03)
[2022-10-29] MEDS: Enoxaparin Sodium 40 MG/0.4 ML SYRINGE SUBCUT (13:03)
[2022-10-29 15:01] VITALS: BP 115/79; PULSE 97; RESP 18; TEMP 37.2; O2SAT 99
--- NOTE | 2022-10-29 15:29 | P.PNIM_ITS ---
Subjective Subjective Date of Service: 10/29/22 Interval History: alcohol withdrawal Review of Systems tremers and anxious ,still mild tachycardia no nausea or vomitin Physical Exam 2 Vital Signs: Vital Signs: Last Vital Signs Temp 99.0 F 10/29/22 15:01 Pulse 97 10/29/22 15:01 Resp 18 10/29/22 15:01 BP 115/79 10/29/22 15:01 Pulse Ox 99 10/29/22 15:01 O2 Del Method Room Air 10/29/22 15:01 O2 Flow Rate 2 10/25/22 19:31 BMI result Body Mass Index 21.0 Appearance: Alert.? Oriented X3.anxious/tramulous cvs: rrr, [id number] , no murmur. res: clear to auscultation ,no rhonchii or wheezing abd: no rebound or guarding ,nt, bs present. ext pulses present , no cyanosis . neuro: axo3 , nonfocal. Objective Data Active Medications Acetaminophen (Acetaminophen 325 Mg Tablet) 650 mg PO Q6H PRN PRN Reason: Pain, Mild (Pain Scale 1-3) Last Admin: 10/28/22 16:36 Dose: 650 mg Documented By: BRICE Artificial Tears (Artificial Tears 15 Ml Drops) 1 drop EYE-BOTH Q4H PRN PRN Reason: dry eyes Last Admin: 10/28/22 08:43 Dose: 1 drop Documented By: BRICE Bismuth Subsalicylate (Bismuth Subsalicylate 262 Mg Tablet) 262 mg PO QID PRN PRN Reason: GI Upset Last Admin: 10/28/22 20:29 Dose: 262 mg Documented By: TASHA Capsaicin (Capsaicin 0.025% Cream 60 Gm Tube) 1 appl TOPICAL QID [facility]; Protocol Last Admin: 10/29/22 13:03 Dose: 1 appl Documented By: GUNJAN Enoxaparin Sodium (Enoxaparin Sodium 40 Mg/0.4 Ml Syringe) 40 mg SUBCUT Q24H [facility] Last Admin: 10/29/22 13:03 Dose: 40 mg Documented By: GUNJAN Lidocaine (Lidocaine 4 % Patch Adh..Patch) 1 patch TRANSDERMA DAILY [facility]; Protocol Last Admin: 10/29/22 08:56 Dose: Not Given Documented By: GUNJAN Non-Admin Reason: Patient Refused Omeprazole (Omeprazole 20 Mg Matty.) 20 mg PO DAILY@0630 [facility] Last Admin: 10/29/22 06:16 Dose: 20 mg Documented By: TASHA Ondansetron HCl (Ondansetron Hcl 4 Mg/2 Ml Vial) 4 mg IVPUSH Q8H PRN PRN Reason: Nausea and Vomiting Last Admin: 10/28/22 18:05 Dose: 4 mg Documented By: BRICE Oxycodone HCl (Oxycodone Hcl Immed Release 5 Mg Tablet) 5 mg PO Q6H PRN PRN Reason: Pain, Severe (Pain Scale 7-10) Last Admin: 10/29/22 13:03 Dose: 5 mg Documented By: GUNJAN Pharmacy Consult (Consult Rx Etoh Phenob Im/Po) 1 each MISCELLANE ONCE PRN; Protocol PRN Reason: Consult order Phenobarbital (Phenobarbital 30 Mg Tablet) 30 mg PO BID [facility]; Protocol Stop: 10/30/22 09:01 Last Admin: 10/29/22 09:09 Dose: 30 mg Documented By: GUNJAN Phenobarbital (Phenobarbital 30 Mg Tablet) 30 mg PO Q24H [facility]; Protocol Stop: 10/31/22 21:01 Sodium Chloride (0.9 % Sodium Chloride Flush 3 Ml Syringe) 3 ml IVFLUSH [facility] Last Admin: 10/29/22 09:10 Dose: 3 ml Documented By: GUNJAN Labs 10/27/22 07:20 10/28/22 18:00 Labs: Laboratory Results - last 24 hr 10/28/22 18:00 Anion Gap 13 Estim Creat Clear Calc 81.5 Estimated GFR > 60 Random Glucose 115 Calcium 9.4 Magnesium 1.6 Assessment and Plan (1) Alcohol withdrawal: Status: Acute Plan 42 yo F with history of Alcohol use disorder who presented with back pain after a mechanical fall. She has now begun exhibiting signs of withdrawal and hence, will be admitted for further work up. Alcohol use disorder with dependence/ acute alcohol withdrawal syndrome patient's CIWA still 8-10 ; still anxious/tachycardic monitor with CIWA continue Phenobarb , given extra dose of phenobarb 65 mg IM She was previously no Naltrexone via her PCP's office -- consider reinitiation at some point Alcohol cessation has been strongly encouraged Recover team is following 2. Anxiety/Depression Reports not taking meds in >3 weeks At this time, hold off Being managed by PCP and will need f/u with them; advised to schedule f/u with PCP early next week 3. Alcoholic liver disease Seen on prior imaging alcohol cessation has been encouraged will need outpatient f/u Full Code DVT pptx, Lovenox Ongoing inpatient need: Alcohol withdrawal-with still significant elevated CIWA scale, symptomatic patient-need phenobarb. Time Spent With Patient Time: Total time managing care of this patient today ____ minutes. Quality Stroke Does the patient have a stroke diagnosis?: No VTE Prior VTE?: No VTE Risk Level:: Medical - moderate - high VTE Device Contraindication: Treatment Not Indicated VTE Drug Contraindication: N/A - Med Ordered
[2022-10-29] MEDS: Magnesium Sulfate/D5W 1 GM/100 ML PIGGYBACK IV (15:42)
[2022-10-29 19:29] VITALS: BP 117/74; PULSE 85; RESP 18; TEMP 36.6; O2SAT 100
[2022-10-29] MEDS: Acetaminophen 325 MG TABLET 650 MG PO (20:26)
[2022-10-30 04:00] VITALS: BP 90/58; PULSE 73; RESP 17; TEMP 36.4; O2SAT 97
[2022-10-30] MEDS: Acetaminophen 325 MG TABLET 650 MG PO (04:43)
[2022-10-30] MEDS: Omeprazole 20 MG CAPSULE.DR PO (04:43)
[2022-10-30 07:14] VITALS: BP 100/66; PULSE 79; RESP 16; TEMP 37.2; O2SAT 100
[2022-10-30] MEDS: 0.9 % Sodium Chloride Flush 3 ML SYRINGE IVFLUSH ×3 (08:17→20:01)
[2022-10-30] MEDS: PHENobarbitaL 30 MG TABLET PO ×2 (08:17→20:01)
[2022-10-30] MEDS: Capsaicin 0.025% Cream 60 GM TUBE 1 APPL TOPICAL ×4 (08:17→20:03)
[2022-10-30] MEDS: oxyCODONE HCl Immed Release 5 MG TABLET PO ×3 (08:23→20:32)
[2022-10-30] MEDS: PHENobarbitaL sodium 65 MG/ML VIAL IM (10:23)
--- NOTE | 2022-10-30 12:47 | P.PNIM_ITS ---
Subjective Subjective Date of Service: 10/30/22 Interval History: alcohol withdrawal Review of Systems tremers and anxious ,still mild tachycardia no nausea or vomitin Physical Exam 2 Vital Signs: Vital Signs: Last Vital Signs Temp 99.0 F 10/30/22 07:14 Pulse 79 10/30/22 07:14 Resp 16 10/30/22 07:14 BP 100/66 10/30/22 07:14 Pulse Ox 100 10/30/22 07:14 O2 Del Method Room Air 10/30/22 07:14 O2 Flow Rate 2 10/25/22 19:31 BMI result Body Mass Index 21.0 Appearance: Alert.? Oriented X3.? not in distress.? cvs: rrr, [id number] , no murmur res: clear to auscultation ,no rhonchii or wheezing abd: no rebound or guarding ,nt, bs present. ext pulses present , no cyanosis. skin -small bruise area -right lower throacic back . neuro: axo3 , nonfocal. Objective Data Active Medications Acetaminophen (Acetaminophen 325 Mg Tablet) 650 mg PO Q6H PRN PRN Reason: Pain, Mild (Pain Scale 1-3) Last Admin: 10/30/22 04:43 Dose: 650 mg Documented By: CHINO Artificial Tears (Artificial Tears 15 Ml Drops) 1 drop EYE-BOTH Q4H PRN PRN Reason: dry eyes Last Admin: 10/28/22 08:43 Dose: 1 drop Documented By: BRICE Bismuth Subsalicylate (Bismuth Subsalicylate 262 Mg Tablet) 262 mg PO QID PRN PRN Reason: GI Upset Last Admin: 10/28/22 20:29 Dose: 262 mg Documented By: TASHA Capsaicin (Capsaicin 0.025% Cream 60 Gm Tube) 1 appl TOPICAL QID [facility]; Protocol Last Admin: 10/30/22 08:17 Dose: 1 appl Documented By: GUNJAN Enoxaparin Sodium (Enoxaparin Sodium 40 Mg/0.4 Ml Syringe) 40 mg SUBCUT Q24H [facility] Last Admin: 10/30/22 11:50 Dose: Not Given Documented By: GUNJAN Non-Admin Reason: Patient Refused Lidocaine (Lidocaine 4 % Patch Adh..Patch) 1 patch TRANSDERMA DAILY [facility]; Protocol Last Admin: 10/30/22 08:13 Dose: Not Given Documented By: UGNJAN Non-Admin Reason: Patient Refused Omeprazole (Omeprazole 20 Mg Matty.) 20 mg PO DAILY@0630 [facility] Last Admin: 10/30/22 04:43 Dose: 20 mg Documented By: CHINO Ondansetron HCl (Ondansetron Hcl 4 Mg/2 Ml Vial) 4 mg IVPUSH Q8H PRN PRN Reason: Nausea and Vomiting Last Admin: 10/28/22 18:05 Dose: 4 mg Documented By: BRICE Oxycodone HCl (Oxycodone Hcl Immed Release 5 Mg Tablet) 5 mg PO Q6H PRN PRN Reason: Pain, Severe (Pain Scale 7-10) Last Admin: 10/30/22 08:23 Dose: 5 mg Documented By: GUNJAN Pharmacy Consult (Consult Rx Etoh Phenob Im/Po) 1 each MISCELLANE ONCE PRN; Protocol PRN Reason: Consult order Phenobarbital (Phenobarbital 30 Mg Tablet) 30 mg PO Q24H [facility]; Protocol Stop: 10/31/22 21:01 Sodium Chloride (0.9 % Sodium Chloride Flush 3 Ml Syringe) 3 ml IVFLUSH QSHIFT [facility] Last Admin: 10/30/22 08:17 Dose: 3 ml Documented By: GUNJAN Labs 10/27/22 07:20 10/28/22 18:00 Assessment and Plan (1) Alcohol withdrawal: Status: Acute Plan 42 yo F with history of Alcohol use disorder who presented with back pain after a mechanical fall. She has now begun exhibiting signs of withdrawal and hence, will be admitted for further work up. Alcohol use disorder with dependence/ acute alcohol withdrawal syndrome CIWA around 3; still anxious continue Phenobarb , given extra dose of phenobarb 65 mg IM She was previously no Naltrexone via her PCP's office -- consider reinitiation at some point Alcohol cessation has been strongly encouraged Recover team is following 2. Anxiety/Depression Reports not taking meds in >3 weeks At this time, hold off Being managed by PCP and will need f/u with them; advised to schedule f/u with PCP early next week 3. Alcoholic liver disease Seen on prior imaging alcohol cessation has been encouraged will need outpatient f/u 4. fall ( at home )-has small bruise area -right lower throacic back . Lumbar and thoracic spine xray -fine. pain managment Pt eval-recoemnded rehab. Full Code DVT pptx, Lovenox Ongoing inpatient need: Alcohol withdrawal-with still significant elevated CIWA scale, symptomatic patient-need phenobarb. Time Spent With Patient Time: Total time managing care of this patient today ____ minutes. Quality Stroke Does the patient have a stroke diagnosis?: No VTE Prior VTE?: No VTE Risk Level:: Medical - moderate - high VTE Device Contraindication: Treatment Not Indicated VTE Drug Contraindication: N/A - Med Ordered
[2022-10-30 15:13] VITALS: BP 109/73; PULSE 93; RESP 18; TEMP 36.5; O2SAT 99
[2022-10-30 20:00] VITALS: BP 122/79; PULSE 81; RESP 20; TEMP 36.6; O2SAT 98
[2022-10-31 04:00] VITALS: BP 102/67; PULSE 97; RESP 16; TEMP 36.4; O2SAT 96
[2022-10-31] MEDS: Omeprazole 20 MG CAPSULE.DR PO (05:55)
[2022-10-31 08:00] VITALS: BP 105/60; PULSE 84; RESP 20; TEMP 37.2; O2SAT 96
[2022-10-31] MEDS: 0.9 % Sodium Chloride Flush 3 ML SYRINGE IVFLUSH (08:08)
[2022-10-31] MEDS: ondansetron HCL 4 MG/2 ML VIAL IVPUSH (08:20)
[2022-10-31] MEDS: oxyCODONE HCl Immed Release 5 MG TABLET PO ×2 (08:20→14:56)
[2022-10-31] MEDS: Capsaicin 0.025% Cream 60 GM TUBE 1 APPL TOPICAL ×2 (08:22→13:45)
--- NOTE | 2022-10-31 11:36 | MHC.CM.PN ---
DP: PT HAS BEEN MEDICALLY CLEARED FOR DC HOME WITH NEW [facility] FOR HOME P.T. PT AWARE AND AGREEABLE TO SERVICES. MOTHER WILL TRANSPORT HOME.
--- NOTE | 2022-10-31 12:57 | P.F2F_ITS ---
Service Date Service Date: 10/31/22 Encounter Date of encounter: 10/31/22 Encounter: alcohol withdrawal Reasons for Services Signs and symptoms assessed: alcohol withdrawal Reason for physical therapy: home safety and mobility, therapeutic exercises, restore joint function, gait/transfer training, assess need for DME, ADL train ing, energy conservation and other MD Overseeing Care: Ollie Pulliam Homebound: Leaving the home is medically contraindicated at this time without the asist of a device and/or another person due th the listed conditions above and below. Reason homebound: weakness related to hospital stay Homebound supporting statement: Patient generalized weak post hospitalization stay-seen by PT recommended rehab -patient refuses -needs home PT. Certification: Based on the above findings, I certify that this patient is confined to the home and needs intermittent mcc care, physical therapy and/or speech therapy, or continues to need occupational therapy. The patient is under my care, and I have initiated the establishment of the plan of care. The patient will be followed by a physician who will periodically review the plan of care. Time Spent With Patient Time: Total time managing care of this patient today ____ minutes.
--- NOTE | 2022-10-31 13:03 | PM.DS ---
DS: Providers Provider Date of Service: 10/31/22 Date of admission: 10/26/22 12:39 Date of discharge: 10/31/22 Primary care physician: Ollie Pulliam PA-C Consults: 10/26/22 00:56 Consult to Care Team Stat Comment: wants detox/recovery team Reason for consultation: wants detox Has provider been notified: Yes 10/30/22 09:39 Addiction Medicine Routine Consulting Provider: Addiction Covering Reason for consultation: Alcohol use Attending physician on discharge: Berta Gutiérrez Discharging clinician: Berta Gutiérrez DS: Diagnosis Discharge Diagnosis (1) Alcohol withdrawal: Status: Acute DS: Summary Hospital Course Hospital Course: 42 year old female with PMH of alochol use disorder with prior admissions for withdrawal and anxiety/depression, who presented to [facility] [place] [place] ED on 10/25/22 after sustaining a mechanical fall while vacuuming. There was no LOC or seizure like activity reported. The patient reports that she landed on her back and subsequently presented to the ED for detxo/back pain. Since arrival to the ED, the patient's work up for her back pain has been negative. She was treated with IV and oral analgesics for her back pain.She reports a history of heavy alcohol use -- at least 10 drinks daily. She reports prior withdrawal symptoms and admission for the same. She denies history of DTs. She also endorses being on MAT for alcohol use disorder, but has not taken it in weeks. This morning, patient began exhibiting signs and symptoms of alcohol withdrawal and was initially treated with IV ativan (7mg total of IV ativan has been administered). However, she continued to exhibit withdrawal symptoms with elevated BP readings in the 170s/110s and tachycardic in the 120-140 range at rest. She has been initiated on phenobarb and now will be admitted for further management of alcohol withdrawal syndrome. Hospital course:patient admitted for a goal withdrawal-started on phenobarb protocol seems to be improved significantly . hypomagnesemia repleted and resolved. patient has bruise right back lower thoracic area and right lateral thigh from fall(mechanical as per patient report) -imaging xray 's are fine .bruises areas improving Patient generalized weak post hospitalization seen by PT recommended rehab, patient refused to go to rehab we will send home with home PT. patient has hx of anxiety/depression -not taking her meds from 3 weeks . she does not endorse any depressed thoughts, she will follow up with pcp for further need of anxiety meds. Above management discussed the patient in detail and she understand and in agreement with above plan, time spent 50 minute. Time Spent with Patient Time attestation: Total time managing care of this patient today ____ minutes. Discharge coordination time: Greater than 30 minutes Quality: Safe Use of Opioids Does Pt have an Active Cancer Diagnosis on the Problem List?: No Quality: Stroke Does the patient have a stroke diagnosis?: No Physical Exam Vital Signs: Vital Signs: Last Vital Signs Temp 98.9 F 10/31/22 08:00 Pulse 84 10/31/22 08:00 Resp 20 10/31/22 08:00 BP 105/60 10/31/22 08:00 Pulse Ox 96 10/31/22 08:00 O2 Del Method Room Air 10/31/22 08:00 O2 Flow Rate 2 10/25/22 19:31 BMI result Body Mass Index 21.0 Appearance: Alert.? Oriented X3.? not in distress.? cvs: rrr, [id number] , no murmur res: clear to auscultation ,no rhonchii or wheezing abd: no rebound or guarding ,nt, bs present. ext pulses present , no cyanosis. skin -sright lower throacic back and leg area brusing improving .rom-intact. neuro: axo3 , nonfocal. DS: Data Data Completed and Pending Completed studies during hospitalization [Text1]: Procedures Detoxification Services for Substance Abuse Treatment (08/24/22) Imaging Chest x-ray: Radiologist's impression: ITS Impressions Lumbar Spine X-Ray 10/25/22 21:14 IMPRESSION: No fracture seen. Thoracic Spine X-Ray 10/30/22 10:11 IMPRESSION: No compression fractures or subluxations are identified. The disc spaces are preserved. No endplate changes are seen. The prevertebral soft tissues are normal. The foramina are patent. Femur X-Ray 10/31/22 10:30 IMPRESSION: No acute abnormality. Discharge Plan Discharge Anticipated Discharge Date/Time: 10/31/22 11:00 Patient Disposition: Home, Self-Care Discharge Diagnosis: Alcohol withdrawal Referrals: [facility] [Outside] - 3-5 Days (HOME SERVICES FOR PHYSICAL THERAPY) Ollie Pulliam PA-C [Primary Care Provider] - 1 Week Discharge Medications: New tramadol 50 mg tablet 50 mg PO BID PRN (Reason: pain) Qty: 4 0RF acetaminophen 500 mg tablet 500 mg PO QID PRN (Reason: fever or pain) Qty: 10 0RF Continued multivitamin Tablet 1 tab PO DAILY clonidine HCl 0.1 mg tablet 0.1 mg PO TID PRN (Reason: Anxiety) pantoprazole 40 mg tablet,delayed release (DR/EC) 40 mg PO DAILY@0630 polyvinyl alcohol 1.4 % Drops 1 drp OPHTHALMIC (EYE) BID Aquaphor Ointment 1 appl TOPICAL TID PRN (Reason: ECZEMA) gabapentin 300 mg Capsule 300 mg PO BID PRN (Reason: PAIN/WITHDRAWAL SYMPTOMS) Held naltrexone 50 mg tablet 50 mg PO DAILY Hold Instructions: Resume on 11/14/22. propranolol 10 mg tablet 30 mg PO TID PRN (Reason: Anxiety) Hold Instructions: Resume on 11/15/22. sertraline 50 mg tablet 50 mg PO DAILY Hold Instructions: Resume on 11/22/22. oxycodone 5 mg Tablet 5 mg PO Q6H PRN (Reason: Pain, Severe (Pain Scale 7-10)) Qty: 4 0RF Hold Instructions: Resume on 11/15/22. Rx Instructions: Partial Fill upon patient request. Discharge Orders: Discharge Order (Routine); Ordered 10/31/22 Ordered By: Berta Gutiérrez Diet: Advance to usual diet Activity on Discharge: As tolerated Stand Alone Forms: Patient Portal Discharge page Activity Restrictions/Additional Instructions: Please follow-up with your primary care physician tomorrow. If you have any worsening or new symptoms, please return to the emergency room or call 911 Care Plan Goals: Patient admitted for a goal withdrawal-started on phenobarb protocol seems to be improved significantly . Patient generalized weak post hospitalization seen by PT recommended rehab, patient refused to go to rehab we will send home with home PT. Above management discussed the patient in detail and she understand and in agreement with above plan, time spent 50 minute. Health Concerns: as above. Plan of Treatment: as above. Assessment: as above. Patient Instructions: Alcohol Intoxication (ED), Ecchymosis (ED) Discharge Date/Time: 10/31/22 17:06
[2022-10-31] MEDS: Enoxaparin Sodium 40 MG/0.4 ML SYRINGE SUBCUT (13:45)
[2022-10-31 15:40] VITALS: BP 135/79; PULSE 90; RESP 20; TEMP 36.6; O2SAT 97
== END 2022-10-31 17:06 | disposition home or self-care (01) | DRG 775 ==
LOC: HO.ED 10-26 10:37 → HO.EDOVER 10-26 12:44 → HO.S3 10-26 13:28
PROVIDERS: Physician Assistant; Admitting Provider Family Medicine; Emergency Provider Emergency Medicine; PCP Physician Assistant; Visit Provider Internal Medicine
DX: F10.239 Alcohol dependence with withdrawal, unspecified (principal); F10.229 Alcohol dependence with intoxication, unspecified; K70.9 Alcoholic liver disease, unspecified; S30.0XXA Contusion of lower back and pelvis, initial encounter; W19.XXXA Unspecified fall, initial encounter; F32.A Depression, unspecified; F41.9 Anxiety disorder, unspecified; Y90.8 Blood alcohol level of 240 mg/100 ml or more; Z87.891 Personal history of nicotine dependence; Z91.148 Patient's other noncompliance with medication regimen for other reason; Z79.899 Other long term (current) drug therapy
CPT/HCPCS: 36415; 72070; 72100; 73552; 80048; 80053; 80184; 80307; 81003; 83735; 85025; 85027; 93005; 97162; 99285; J1650; J1885; J2060; J2270; J2405; J2560; J3475

== ENCOUNTER → 2022-10-26 12:39 | Outpatient (BNV) | payer OTHER, SELFPAY | PROVIDERS: Admitting Provider Family Medicine; Emergency Provider Emergency Medicine; PCP Physician Assistant; Visit Provider Family Medicine | DX: F10.230 Alcohol dependence with withdrawal, uncomplicated (principal) | CPT/HCPCS: 99223; 99232; 99239; G0180 ==

== ENCOUNTER 2022-11-02 16:06 | Outpatient (AMB) | payer OTHER, SELFPAY ==
[2022-11-02 16:08] VITALS: BP 108/80; PULSE 85; O2SAT 98; BMI 20.3
--- NOTE | 2022-11-02 16:08 | MHC.PC.OV ---
Vital Signs 11/02/22 16:08 Height 5 ft 4 in Weight 118 lb BMI 20.3 BP 108/80 Blood Pressure Location Lt brachial Position Sitting Pulse 85 Pulse Source Pulse Oximeter Pulse Oximetry (%) 98 Oxygen Delivery Method Room Air Intake Visit Reasons: ED f/u Intake Note: Patient is here to follow-up after a visit the emergency department at [facility] on 10/25/22 Allergies amoxicillin [From Augmentin] Allergy (Intermediate, Verified 11/02/22 16:20) Abdominal Pain clavulanic acid [From Augmentin] Allergy (Intermediate, Verified 11/02/22 16:20) Abdominal Pain Sulfa (Sulfonamide Antibiotics) [SULFA (SULFONAMIDE ANTIBIOTICS)] Allergy (Mild, Verified 11/02/22 16:20) RASH magnesium Adverse Reaction (Verified 11/02/22 16:20) Diarrhea Medication List - Last Reconciled 11/02/22 by TINO Cortes acetaminophen 500 mg PO QID PRN clonidine HCl 0.1 mg PO TID PRN gabapentin 300 mg PO BID PRN mineral oil-hydrophil petrolat (Aquaphor topical ointment) 1 appl topical TID PRN multivitamin 1 tab PO DAILY naltrexone 50 mg PO DAILY oxycodone 5 mg PO Q6H PRN pantoprazole 40 mg PO DAILY@0630 polyvinyl alcohol 1.4% 1 drp ophthalmic (eye) BID propranolol 30 mg PO TID PRN tramadol 50 mg PO BID PRN Tobacco use date assessed: 11/02/22 HPI ED f/u HPI Details Patient is a 43-year-old female who presents today to follow-up after [facility] discharge. Patient of LIS Pulliam. discharge diagnosis alcohol withdrawal. Per discharge summary: Hospital Course: 42 year old female with PMH of alochol use disorder with prior admissions for withdrawal and anxiety/depression, who presented to [facility] ED on 10/25/22 after sustaining a mechanical fall while vacuuming. There was no LOC or seizure like activity reported. The patient reports that she landed on her back and subsequently presented to the ED for detxo/back pain. Since arrival to the ED, the patient's work up for her back pain has been negative. She was treated with IV and oral analgesics for her back pain.She reports a history of heavy alcohol use -- at least 10 drinks daily. She reports prior withdrawal symptoms and admission for the same. She denies history of DTs. She also endorses being on MAT for alcohol use disorder, but has not taken it in weeks. This morning, patient began exhibiting signs and symptoms of alcohol withdrawal and was initially treated with IV ativan (7mg total of IV ativan has been administered). However, she continued to exhibit withdrawal symptoms with elevated BP readings in the 170s/110s and tachycardic in the 120-140 range at rest. She has been initiated on phenobarb and now will be admitted for further management of alcohol withdrawal syndrome. Hospital course:patient admitted for a goal withdrawal-started on phenobarb protocol seems to be improved significantly . hypomagnesemia repleted and resolved. patient has bruise right back lower thoracic area and right lateral thigh from fall(mechanical as per patient report) -imaging xray 's are fine .bruises areas improving Patient generalized weak post hospitalization seen by PT recommended rehab, patient refused to go to rehab we will send home with home PT. patient has hx of anxiety/depression -not taking her meds from 3 weeks . she does not endorse any depressed thoughts, she will follow up with pcp for further need of anxiety meds. Today, patient reports that she started physical therapy at home, she will be having physical therapy 2 times per week. No alcohol consumption for over 1 week now. Reports ongoing right low back and right hip pain, reports bruising there, reports cannot take Tylenol due to elevated liver blood work. Requested refill on tramadol couple tablets until pain improves. Patient reports that she will be having appointment with [facility] who will be helping with alcohol cessation, patient reports that she will be going to AA meetings. Patient reports she has not been taking anything for anxiety for the past couple weeks, would like to have prescription for anxiety medication. Denies shortness of breath or chest pain. PFSH Medical History Diverticulitis Pelvic abscess in female Anxiety Alcohol abuse Surgical History No pertinent past surgical history Family History Father Medical history unknown Mother Medical history unknown Paternal Grandfather Cancer Sister Epilepsy Daughter In good health Son In good health Social History Household Members: None Housing: Apartment Do you presently have visiting nurse or other home services: No Alcohol intake: current Alcohol intake frequency: 3 or more drinks per day Alcohol type: beer and wine Patient Tobacco Use Status: Former Tobacco user Quit Date: 2006 Tobacco use type: Cigarette e-Cigarette/Vaping Use: Former Use Second Hand Smoke Exposure: No Advance Directives Date on File: 01/25/21 service: No Current occupational status: unemployed Cognitive needs: No Hearing needs: No Vision needs: No Female Reproductive History Menstrual Age of Menarche: 11 Questionnaire Thrive Questionnaire Date Thrive assessed: 10/27/22 AUDIT C Alcohol Use Questionnaire (AUDIT-C) 1. How often do you have a drink containing alcohol?: Never 2. How many drinks containing alcohol do you have on a typical day when you are drinking?: 1 or 2 (0) 3. How often do you have six or more drinks on one occasion?: Never Total Score: 0 Score Reviewed/Action Taken: No SENA-7 AMB Questionnaire SENA-7 Date SENA - 7 assessed: 04/20/21 Source: Developed by Drs. Aries Dawkins, Destiny Lomas, Guy Plata and colleagues, with an educational meño from [email or web address]. Review of Systems Const Denies body aches, Denies chills, Denies fever(s) and Denies headache(s) Eyes Denies change in vision ENT Denies dizziness, Denies otalgia, Denies headache(s), Denies nasal discharge, Denies sinus pain and Denies sore throat Card Denies chest pain, Denies edema, Denies lightheadedness and Denies dyspnea Resp Denies cough, Denies dyspnea and Denies wheezing GI Denies abdominal pain Denies dysuria Musc Reports as per HPI, Reports back pain and Denies myalgias Skin/Breast Denies rash Neuro Denies dizziness and Denies headache(s) Aller/Immun Denies wheezing Physical exam (Primary Care) Vital Signs: Last Vital Signs Pulse 85 11/02/22 16:08 BP 108/80 11/02/22 16:08 Pulse Ox 98 11/02/22 16:08 Oxygen Delivery Method Room Air 11/02/22 16:08 BMI result Body Mass Index 20.3 Tobacco/Smoking Status: Tobacco use Status Tobacco use date assessed 11/02/22 11/02/22 16:16 Patient Tobacco Use Status Former Tobacco user 11/02/22 16:16 Tobacco use type Cigarette 11/02/22 16:16 e-Cigarette/Vaping Use Former Use 11/02/22 16:16 Thrive Assessment: Date of Thrive Assessment Date Thrive assessed 10/27/22 11/02/22 16:16 Const General: cooperative and no acute distress Orientation/consciousness: patient oriented x3 HENMT Head: Yes normocephalic and Yes atraumatic Mouth: oropharynx normal and moist mucous membranes Throat: Yes posterior oropharynx normal Eyes General: appearance normal, both eyes and all related structures Pupils: Equal, round and reactive pupils present EOM: EOMs intact bilaterally Neck Neck: Yes normal visual inspection, Yes full ROM and Yes no lymphadenopathy Resp Effort & Inspection: normal respiratory effort and able to speak in complete sentences Auscultation: clear to auscultation bilaterally, no crackles, no rales, no rhonchi and no wheezes Cardio Rate: regular rate Rhythm: regular rhythm Heart sounds: S1 normal heart sound present and S2 normal heart sound present GI Auscultation: normal bowel sounds Back/Spine/Pelvis Other: Right low back fading ecchymosis Thoracic/Lumbar Spine: paraspinal muscle tenderness (Right), No thoracic spinal tenderness and No lumbar spinal tenderness Skin Other: Right lateral thigh fading ecchymosis, tender to palpation General skin exam: no rashes or lesions noted Neuro General: patient oriented x3 Cranial nerves: Yes Equal, round and reactive pupils present Gait exam (Neuro): Normal gait present Extrem General: Yes full ROM and No edema Assessment and Plan Assessment & Plan (1) Right leg pain: Code(s): M79.604 - Pain in right leg Plan: See HPI and physical exam for details Patient is physical therapy Will provide with diclofenac cream and lidocaine patch p.r.n. Encouraged heat/cold packs p.r.n. (2) Back contusion: Code(s): S20.229A - Contusion of unspecified back wall of thorax, initial encounter Plan: Refill sent on tramadol 50 mg 1 tablet daily p.r.n. for 7 tablets only Same as above (3) Alcohol withdrawal: Code(s): F10.939 - Alcohol use, unspecified with withdrawal, unspecified Plan: Patient reports that she has an upcoming appointment with [facility] next week for alcohol cessation, naltrexone is on hold until patient finishes tramadol Reports no alcohol consumption for over 1 week now (4) Hospital discharge follow-up: Code(s): Z09 - Encounter for follow-up examination after completed treatment for conditions other than malignant neoplasm (5) SENA (generalized anxiety disorder): Code(s): F41.1 - Generalized anxiety disorder Plan: Patient was on clonidine in the past for anxiety, refill sent Patient has an upcoming appointment with [facility] Medications: New clonidine HCl 0.1 mg PO TID PRN 30 tabs 1RF Anxiety F41.1 - Generalized anxiety disorder diclofenac sodium 1% (Arthritis Pain (diclofenac)) 2 grams topical QID PRN 100 grams 1RF pain S20.229A - Contusion of unspecified back wall of thorax, initial encounter lidocaine 4% (Aspercreme (lidocaine)) 2 patches topical DAILY PRN 30 ea 0RF pain M79.604 - Pain in right leg, S20.229A - Contusion of unspecified back wall of thorax, initial encounter Changed From tramadol 50 mg PO BID PRN 4 tabs 0RF pain M79.604 - Pain in right leg, S20.229A - Contusion of unspecified back wall of thorax, initial encounter To tramadol 50 mg PO DAILY PRN 7 tabs 0RF pain M79.604 - Pain in right leg, S20.229A - Contusion of unspecified back wall of thorax, initial encounter Discontinued acetaminophen Discontinued Reason: Patient no longer taking 500 mg PO QID PRN 10 tabs 0RF fever or pain Coding Level of Care Code Est Pt Level 4 (12236) Diagnoses Right leg pain M79.604 Back contusion S20.229A Alcohol withdrawal syndrome without complication F10.939 Hospital discharge follow-up Z09 SENA (generalized anxiety disorder) F41.1
== END 2022-11-02 16:49 | disposition home or self-care (01) ==
PROVIDERS: PCP Physician Assistant; Visit Provider Nurse Practitioner Family
DX: M79.604 Pain in right leg (principal); S20.229A Contusion of unspecified back wall of thorax, initial encounter; F10.939 Alcohol use, unspecified with withdrawal, unspecified; Z09 Encounter for follow-up examination after completed treatment for conditions other than malignant neoplasm; F41.1 Generalized anxiety disorder
CPT/HCPCS: 99214

== ENCOUNTER 2022-11-24 10:13 | Outpatient (AMB) | payer OTHER, SELFPAY ==
--- NOTE | 2022-11-24 10:29 | MHC.PC.OV ---
Vital Signs 11/24/22 10:31 11/24/22 10:51 Height 5 ft 4 in Weight 121 lb 8 oz BMI 20.9 BP 80/60 L 100/64 Blood Pressure Location Lt brachial Rt brachial Position Sitting Sitting Pulse 71 Pulse Source Pulse Oximeter Pulse Oximetry (%) 97 Oxygen Delivery Method Room Air Intake Visit Reasons: follow up Intake Note: Patient is here to follow up on med review, GERD, IBS. Complaint of left christianson and both knee pain. Senior Bookkeeper Required: No Manager Of Customer Billing: Not Required per policy Accompanied by: Self / Same As Patient Allergies amoxicillin [From Augmentin] Allergy (Intermediate, Verified 11/24/22 10:54) Abdominal Pain clavulanic acid [From Augmentin] Allergy (Intermediate, Verified 11/24/22 10:54) Abdominal Pain gabapentin Allergy (Intermediate, Verified 11/24/22 10:54) Dizziness Sulfa (Sulfonamide Antibiotics) [SULFA (SULFONAMIDE ANTIBIOTICS)] Allergy (Mild, Verified 11/24/22 10:54) RASH magnesium Adverse Reaction (Verified 11/24/22 10:54) Diarrhea Medication List - Last Reconciled 11/24/22 by Ollie Pulliam PA-C clonidine HCl 0.1 mg PO TID PRN diclofenac sodium 1% (Arthritis Pain (diclofenac)) 2 grams topical QID PRN hyoscyamine sulfate 0.125 mg PO QID 15 days multivitamin 1 tab PO DAILY naltrexone 50 mg PO DAILY pantoprazole 40 mg PO DAILY@0630 polyvinyl alcohol 1.4% 1 drp ophthalmic (eye) BID thiamine HCl (vitamin B1) 100 mg PO DAILY tramadol 50 mg PO DAILY PRN Tobacco use date assessed: 11/24/22 Dental Screening Dental Screen Date: 11/24/22 Did you have a dental visit in the last 12 months?: No Did you have a dental problem in the last 6 months where you did not have access to dental care?: No Was dental information given to patient?: Patient declined HPI follow up HPI Details Patient is a 42-year-old female here today for follow-up visit. Patient has a past medical history significant for alcohol use disorder, diverticulitis, GERD, irritable bowel syndrome, generalized anxiety disorder. Concerns--> reports over the last several weeks having right wrist pain that radiates up into her right elbow. Of note did suffer a fall before her hospitalization which she may have injured her right wrist. She is willing to get x-ray. Has been using a wrist splint at night without much relief. ALso reports she continues to have bilateral anterior knee pain when ambulating and bilateral christianson splints that caused her not to be able to walk for long distances. PLAN: Will likely benefit from physical therapy for patellofemoral syndrome of bilateral knees. Advised on NSAID use as needed for her bilateral knee pain. Alcohol use disorder: Patient recently had to [facility] for acute alcohol intoxication and withdrawal. She was placed under the phenobarbital protocol. She was found to have low magnesium which was replenished. She also did report a mechanical fall injuring her lower back. X-rays without any fractures. Physical therapy was recommended though patient declined. Now has a transition coach and therapist- Has been sober from alcohol now 1month .. Diverticulitis: reports still having lower abdominal pain/ cramping and bloating. Report regular bowel movments. HAs been following the Diverticulitis diet. PFSH Medical History Diverticulitis Pelvic abscess in female Anxiety Alcohol abuse Surgical History No pertinent past surgical history Family History Father Medical history unknown Mother Medical history unknown Paternal Grandfather Cancer Sister Epilepsy Daughter In good health Son In good health Other Substance use disorder Social History Household Members: None Housing: Apartment Do you presently have visiting nurse or other home services: No Alcohol intake: current Alcohol intake frequency: 3 or more drinks per day Alcohol type: beer and wine Patient Tobacco Use Status: Former Tobacco user Quit Date: 2006 Tobacco use type: Cigarette e-Cigarette/Vaping Use: Former Use Second Hand Smoke Exposure: No Advance Directives Date on File: 01/25/21 service: No Current occupational status: unemployed Cognitive needs: No Hearing needs: No Vision needs: No Female Reproductive History Menstrual Age of Menarche: 11 Questionnaire Thrive Questionnaire Date Thrive assessed: 10/27/22 SENA-7 AMB Questionnaire SENA-7 Date SENA - 7 assessed: 04/20/21 Source: Developed by Drs. Aries Dawkins, Destiny Lomas, Guy Plata and colleagues, with an educational meño from [employer]. Review of Systems Const Denies headache(s) Eyes Denies loss of vision ENT Denies vertigo, Denies dizziness, Denies headache(s) and Denies sore throat Card Denies chest pain, Denies leg edema and Denies lightheadedness Resp Denies cough, Denies hemoptysis and Denies wheezing GI Denies abdominal pain, Denies melena, Denies constipation, Denies diarrhea and Denies vomiting Denies urinary frequency, Denies dysuria and Denies urinary urgency Musc Denies arthralgias, Denies joint swelling, Denies numbness and Denies tingling Neuro Denies Abnormal speech present, Denies behavioral changes, Denies vertigo, Denies dizziness, Denies headache(s), Denies loss of vision, Denies memory loss, Denies numbness and Denies tingling Psych Denies anxiety, Denies behavioral changes, Denies depression, Denies memory loss and Denies panic attacks Maxime/Lymph Denies easy bleeding and Denies easy bruising Aller/Immun Denies wheezing Physical exam (Primary Care) Vital Signs: Last Vital Signs Pulse 71 11/24/22 10:31 BP 100/64 11/24/22 10:51 Pulse Ox 97 11/24/22 10:31 Oxygen Delivery Method Room Air 11/24/22 10:31 BMI result Body Mass Index 20.9 Tobacco/Smoking Status: Tobacco use Status Tobacco use date assessed 11/24/22 11/24/22 10:48 Patient Tobacco Use Status Former Tobacco user 11/24/22 10:48 Tobacco use type Cigarette 11/24/22 10:48 e-Cigarette/Vaping Use Former Use 11/24/22 10:48 Thrive Assessment: Date of Thrive Assessment Date Thrive assessed 10/27/22 11/24/22 10:48 Const General: healthy appearing, no acute distress, alert and awake Nutritional Appearance: well nourished Orientation/consciousness: oriented to person, oriented to place and oriented to time HENMT Ears: TM's normal bilaterally General nose exam: Normal nasal mucous membranes and turbinates present Eyes Conjunctivae: conjunctivae normal Sclerae: sclerae normal Pupils: Equal, round and reactive pupils present Neck Neck: Yes no lymphadenopathy and Yes no JVD Thyroid: Thyroid normal Carotids: no bruits Resp Effort & Inspection: normal respiratory effort and not tachypneic Auscultation: no crackles, no rales, no rhonchi and no wheezes Cardio Rate: regular rate Rhythm: regular rhythm Heart sounds: no murmurs and normal S1 and S2 GI Palpation (GI): Soft to palpation, nontender, no hepatomegaly and no splenomegaly Auscultation: normal bowel sounds Skin General skin exam: no rashes or lesions noted and dry skin Neuro General: oriented to person, oriented to place and oriented to time Cranial nerves: Yes Equal, round and reactive pupils present Speech: No Abnormal speech present Gait exam (Neuro): Normal gait present Motor exam (neuro): no tremor noted Extrem Right upper extremity: full ROM Left upper extremity: full ROM Right lower extremity: full ROM; no edema Left lower extremity: full ROM; no edema Psych Mental Status: mental status grossly normal Speech and movement: Normal speech and movement present Affect: normal affect Attitude: cooperative Thought process: Normal thought process present Office Procedures Flu Questionnaire Does the patient have a severe egg allergy?: No Does the patient have severe life threatening allergies?: No Does the patient have a fever or illness today?: No Has the patient ever had Guillain-[place] Syndrome?: No Has the patient ever had any past reaction to a flu shot?: No Immunizations flu vacc [id number] 6mos up(PF) 60 mcg(15 mcgx4)/0.5 mL IM syringe Performing Provider: Ollie Pulliam PA-C Performing Location: [facility] Administered by: ESTHER Stephenson on 11/24/22 10:49 Dose Route Admin Location Dispensed Lot Number Expiration Date [facility] Bolting Machine Operator 0.5 mL IM Left Deltoid 0.5 mL [id number] 08/10/23 92323-030-94 Drill Cycle VIS Given Date VIS Provided VIS Publication Date 11/24/22 Single Vaccine 20 Eligibility Eligibility Date Funding Source Not [facility] Eligible 11/24/22 Private Assessment and Plan Assessment & Plan (1) Right wrist tendinitis: Code(s): M77.8 - Other enthesopathies, not elsewhere classified Plan: As per HPI (2) Hypomagnesemia: Code(s): E83.42 - Hypomagnesemia Plan: Was found to have low magnesium during hospitalization. Was replenished while in the hospital. Will recheck as outpatient in 1 month sober from alcohol. (3) Alcohol use disorder: Code(s): F19.90 - Other psychoactive substance use, unspecified, uncomplicated Plan: Now has 1 month sobriety from alcohol. She is speaking with a transition coach. Now working on getting her resume in ordering getting a new job. Advised her to consider restarting naltrexone as she has high risk for relapse at this time. (4) Diverticulitis: Comment: recent...9---12/2021 Code(s): K57.92 - Diverticulitis of intestine, part unspecified, without perforation or abscess without bleeding Plan: Continues to follow GI. Does report having some abdominal bloating and cramping in the mornings before she defecates. She does use bowel anti spasmodic medication in which is helpful in reducing her abdominal pain. (5) Patella-femoral syndrome: Code(s): M22.2X9 - Patellofemoral disorders, unspecified knee Qualifiers: Laterality: bilateral Qualified Code(s): M22.2X1 - Patellofemoral disorders, right knee; M22.2X2 - Patellofemoral disorders, left knee Plan: As per HPI patient would likely benefit from formal physical therapy to help increase strength in her thighs. Of note x-rays knees in 2021 were normal. Orders: Orders Magnesium Today R79.0 - Abnormal level of blood mineral Liver Panel Today F10.20 - Alcohol dependence, uncomplicated Ethanol Today F10.20 - Alcohol dependence, uncomplicated OT Evaluation and Treatment Today M77.8 - Other enthesopathies, not elsewhere classified PT Evaluation and Treatment Today M22.2X1 - Patellofemoral disorders, right knee, M22.2X2 - Patellofemoral disorders, left knee Influenza [id number] Immunization Today Z23 - Encounter for immunization XR hand wrist RT Today M77.8 - Other enthesopathies, not elsewhere classified Basic Metabolic Panel Today F10.20 - Alcohol dependence, uncomplicated Medications: New meloxicam 15 mg PO DAILY 15 days PRN 15 tabs 0RF pain M77.8 - Other enthesopathies, not elsewhere classified hydroxyzine HCl 25 mg PO BEDTIME 90 days 90 tabs 1RF G47.00 - Insomnia, unspecified Changed From clonidine HCl 0.1 mg PO TID PRN 30 tabs 1RF Anxiety F41.1 - Generalized anxiety disorder To clonidine HCl 0.1 mg PO TID 30 days PRN 90 tabs 1RF Anxiety F41.1 - Generalized anxiety disorder Coding Level of Care Code Est Pt Level 4 (60380) Diagnoses Right wrist tendinitis M77.8 Hypomagnesemia E83.42 Alcohol use disorder F19.90 Diverticulitis K57.92 Patellofemoral pain syndrome of both knees M22.2X1; M22.2X2 Laterality: bilateral
[2022-11-24 10:31] VITALS: BP 80/60; PULSE 71; O2SAT 97; BMI 20.9
[2022-11-24 10:51] VITALS: BP 100/64
== END 2022-11-24 11:33 | disposition home or self-care (01) ==
PROVIDERS: PCP Physician Assistant; Visit Provider Physician Assistant
DX: M77.8 Other enthesopathies, not elsewhere classified (principal); E83.42 Hypomagnesemia; F19.90 Other psychoactive substance use, unspecified, uncomplicated; F10.20 Alcohol dependence, uncomplicated; K57.92 Diverticulitis of intestine, part unspecified, without perforation or abscess without bleeding; M22.2X1 Patellofemoral disorders, right knee; M22.2X2 Patellofemoral disorders, left knee; Z23 Encounter for immunization
CPT/HCPCS: 90471; 90686; 99214

== ENCOUNTER 2022-11-24 11:45 | Outpatient (REF) | payer OTHER, SELFPAY | END 2022-11-24 11:46 | disposition home or self-care (01) | LOC: HO.XRAY 11:45 | PROVIDERS: PCP Physician Assistant; Visit Provider Physician Assistant | DX: M77.8 Other enthesopathies, not elsewhere classified (principal) | CPT/HCPCS: 73110; 73130 ==

== ENCOUNTER 2022-12-07 01:52 | Inpatient (IN) | payer OTHER, SELFPAY ==
[2022-12-07] VITALS (10 sets, daily range): BP systolic 116–149; BP diastolic 57–90; PULSE 110–137; RESP 13–21; TEMP 36.8–37.5; O2SAT 9–98; BMI 20.5
--- NOTE | ~2022-12-07 | XR_ITS ---
EXAMINATION: XR CHEST CLINICAL INFORMATION: Fall COMPARISON: 06/19/2021 TECHNIQUE: Frontal view of the chest was obtained. FINDINGS: The lungs are clear with no focal consolidation. No evidence of pneumothorax, pulmonary edema, or pleural effusions. The cardiomediastinal silhouette is unremarkable. No acute osseous findings. XR/XR chest 1V IMPRESSION: No acute cardiopulmonary findings.
--- NOTE | ~2022-12-07 | XR_ITS ---
EXAMINATION: XR SHOULDER, RIGHT CLINICAL INFORMATION: Fall COMPARISON: None available. TECHNIQUE: Three views of the right shoulder. FINDINGS: Glenohumeral alignment is anatomic. The acromioclavicular joint is intact. There is subtle contour deformity at the greater tuberosity of the humerus raising concern for an essentially nondisplaced fracture in the setting of trauma. XR/XR shoulder RT min 2V IMPRESSION: Subtle contour deformity at the greater tuberosity of the humerus raising concern for essentially nondisplaced fracture in the setting of trauma.
--- NOTE | ~2022-12-07 | CT_ITS ---
EXAMINATION: NONCONTRAST HEAD CT NONCONTRAST CERVICAL SPINE CT INDICATION INFORMATION: Fall COMPARISON: 10/18/2019 TECHNIQUE: Separate noncontrast CT examinations of the head and cervical spine were performed. Coronal head CT images and coronal and sagittal cervical spine images were created at the technologist workstation. DLP: 881 mGy-cm DOSE LOWERING TECHNIQUES: This CT examination was performed using dose optimization techniques as appropriate, variously including the following: - Automated exposure control - Adjustment of mA and/or kV according to patient size (this includes techniques or standardized protocols for targeted exams were dose is matched to indication/reason for exam; i.e. extremities or head) - Use of iterative reconstruction technique FINDINGS: Head: There is no evidence of acute intracranial hemorrhage or territorial infarction. No abnormal mass-effect or midline shift is seen. Pepper to white matter differentiation is well preserved. No extra-axial fluid collections are identified. The ventricles are normal in size. There is no abnormal attenuation within the brain parenchyma. The osseous structures and soft tissues are normal. Slight mucosal thickening of the maxillary sinuses. The mastoid air cells are well-aerated. Cervical spine: There is anatomic alignment of the vertebral bodies and posterior elements. Vertebral body heights are maintained. Intervertebral disc spaces are preserved. No evidence of acute fracture. No prevertebral soft tissue swelling. Visualized portions of the lung apices are unremarkable. The thyroid gland is unremarkable. CT/CT head/brain wo IV con IMPRESSION: No acute findings identified in the head or cervical spine.
--- NOTE | ~2022-12-07 | CT_ITS ---
EXAMINATION: NONCONTRAST HEAD CT NONCONTRAST CERVICAL SPINE CT INDICATION INFORMATION: Fall COMPARISON: 10/18/2019 TECHNIQUE: Separate noncontrast CT examinations of the head and cervical spine were performed. Coronal head CT images and coronal and sagittal cervical spine images were created at the technologist workstation. DLP: 881 mGy-cm DOSE LOWERING TECHNIQUES: This CT examination was performed using dose optimization techniques as appropriate, variously including the following: - Automated exposure control - Adjustment of mA and/or kV according to patient size (this includes techniques or standardized protocols for targeted exams were dose is matched to indication/reason for exam; i.e. extremities or head) - Use of iterative reconstruction technique FINDINGS: Head: There is no evidence of acute intracranial hemorrhage or territorial infarction. No abnormal mass-effect or midline shift is seen. Pepper to white matter differentiation is well preserved. No extra-axial fluid collections are identified. The ventricles are normal in size. There is no abnormal attenuation within the brain parenchyma. The osseous structures and soft tissues are normal. Slight mucosal thickening of the maxillary sinuses. The mastoid air cells are well-aerated. Cervical spine: There is anatomic alignment of the vertebral bodies and posterior elements. Vertebral body heights are maintained. Intervertebral disc spaces are preserved. No evidence of acute fracture. No prevertebral soft tissue swelling. Visualized portions of the lung apices are unremarkable. The thyroid gland is unremarkable. CT/CT cervical spine wo IV con IMPRESSION: No acute findings identified in the head or cervical spine.
--- NOTE | 2022-12-07 02:11 | ECG_ITS ---
Test Reason : tachycardia Blood Pressure : / mmHG Vent. Rate : 126 BPM Atrial Rate : 126 BPM P-R Int : 120 ms QRS Dur : 072 ms QT Int : 348 ms P-R-T Axes : 000 089 031 degrees QTc Int : 504 ms Sinus tachycardia Otherwise normal ECG When compared with ECG of 25-OCT-2022 19:11, No significant change was found Referred By: Doris Kenney Electronically Signed By:THELMA ABRAHAM MD
[2022-12-07] MEDS: Magnesium Sulfate/H2O 2 GM/50 ML PIGGYBACK IV (02:17)
[2022-12-07] MEDS: 0.9 % Sodium Chloride 1,000 ML 999 ML IVCONT ×2 (02:19→03:56)
--- NOTE | 2022-12-07 02:24 | ED.ALCOHOL ---
HPI - Alcohol General Chief Complaint: ETOH/Substance Use Stated Complaint: ETOH, SYNCOPE Time Seen by Provider: 12/07/22 02:10 Source: patient, EMS and old records reviewed Mode of arrival: EMS Limitations: no limitations History of Present Illness HPI narrative: 42 yo female with PMH of ETOH abuse with no hx of withdrawal seizures, SENA, diarrhea, celiac, IBS, GERD, lyte abnormality here with c/o last drink around 6pm yesterday - she drinks about 12+ nips a day usually more. She was walking and fell - woke up on the floor and thinks she was on the ground for several hours. She has pain in head, neck R shoulder. She is shaky and anxious she has muscle cramps MD complaint: alcohol withdrawal Last drink: Days (ago) (6pm yesterday ) Chronic alcohol use: Yes Previous visits for alcohol intoxication: Yes Recent trauma: Yes Associated symptoms: nausea, tremors and other Treatments prior to arrival: cervical collar Related Data Home Medications Medication Instructions Recorded Confirmed multivitamin 1 tab PO DAILY 08/24/22 11/24/22 naltrexone 50 mg tablet 50 mg PO DAILY 08/24/22 11/24/22 pantoprazole 40 mg tablet,delayed 40 mg PO DAILY@0630 08/24/22 11/24/22 release polyvinyl alcohol 1.4 % eye drops 1 drp ophthalmic (eye) BID 10/26/22 11/24/22 thiamine HCl (vitamin B1) 100 mg 100 mg PO DAILY 11/24/22 11/24/22 tablet Previous Rx's Medication Instructions Recorded diclofenac sodium 1 % topical gel 2 g topical QID PRN pain #100 grams 11/02/22 (Arthritis Pain (diclofenac)) hyoscyamine sulfate 0.125 mg 0.125 mg PO QID 15 days #60 tabs 11/09/22 disintegrating tablet tramadol 50 mg tablet 50 mg PO DAILY PRN pain #7 tabs 11/17/22 clonidine HCl 0.1 mg tablet 0.1 mg PO TID PRN Anxiety 30 days 11/24/22 #90 tabs hydroxyzine HCl 25 mg tablet 25 mg PO BEDTIME 90 days #90 tabs 11/24/22 meloxicam 15 mg tablet 15 mg PO DAILY PRN pain 15 days 11/24/22 #15 tabs Allergies Allergy/AdvReac Type Severity Reaction Status Date / Time amoxicillin [From Augmentin] Allergy Intermediate Abdominal Verified 11/24/22 10:54 Pain clavulanic acid Allergy Intermediate Abdominal Verified 11/24/22 10:54 [From Augmentin] Pain gabapentin Allergy Intermediate Dizziness Verified 11/24/22 10:54 Sulfa (Sulfonamide Allergy Mild RASH Verified 11/24/22 10:54 Antibiotics) [SULFA (SULFONAMIDE ANTIBIOTICS)] magnesium AdvReac Diarrhea Verified 11/24/22 10:54 Review of Systems Review of Systems: Constitutional : No Fever, No Chills, No Fatigue ENT/Mouth : No sore throat, No Rhinorrhea Eyes: No Eye Pain, No Swelling, No Redness Cardiovascular : No Chest Pain, No SOB, No Dyspnea on Exertion Respiratory : No Cough, No Sputum Gastrointestinal : pos Nausea, No Vomiting, No Diarrhea, No abdominal Pain Genitourinary : No Dysuria, No Urinary Frequency, No Hematuria, Musculoskeletal : pos joint pain, No Myalgias, No Joint Swelling Skin : No Skin Lesions, No rash Neuro : No Weakness, No Numbness, No Dizziness, positive Headache Psych : pos Anxiety/Panic, No Depression Heme/Lymph: No Bruising, No Bleeding,No Lymphadenopathy Endocrine : No Polyuria, No Polydipsia All other systems reviewed and are negative PMFSH Past Medical History Attestation statement: The following information was validated with the patient. Source: old records reviewed Medical History Diverticulitis Pelvic abscess in female Anxiety Alcohol abuse Surgical History No pertinent past surgical history Family History Family History Father Medical history unknown Mother Medical history unknown Paternal Grandfather Cancer Sister Epilepsy Daughter In good health Son In good health Other Substance use disorder Social History Social History Household Members: None Housing: Apartment Do you presently have visiting nurse or other home services: No Alcohol intake: current Alcohol intake frequency: 3 or more drinks per day Alcohol type: beer and hard liquor Patient Tobacco Use Status: Former Tobacco user Quit Date: 2006 Tobacco use type: Cigarette Smoked in Last 30 Days: No e-Cigarette/Vaping Use: Former Use Second Hand Smoke Exposure: No Use of substances other than those prescribed or required for medical reasons: No Advance Directives: Yes Advance Directives on File: Yes Advance Directives Date on File: 01/25/21 Patient : No service: No Current occupational status: unemployed Cognitive needs: No Hearing needs: No Vision needs: No Physical Exam ED Vital Signs: Vital Signs - 24 hr 12/07/22 02:01 12/07/22 03:26 Temperature 98.2 F 98.6 F Pulse Rate 126 H 113 H Respiratory Rate 21 H 15 Blood Pressure 149/90 H 149/89 H Pulse Oximetry 97 98 Oxygen Delivery Method Room Air Room Air BMI result Body Mass Index 20.5 Appearance: Alert. Oriented X3. Moderate acute distress. Eyes: Pupils equal, round and reactive to light. ENT: Pharynx dry MM. atraumatic Neck: cervical collar in place has ttp along midline no step offs CVS: tachycardic heart rate and rhythm. Pulses normal. Respiratory: No respiratory distress. Breath sounds normal. Abdomen: Soft and nontender. Skin: Skin warm and dry. Normal skin color. Normal skin turgor. Extremities: No lower extremity edema. No calf ttp R shoulder ttp Neuro: Oriented X 3. No motor deficit. No sensory deficit. tremors Course Course Course Narrative: transfusing for low platelets Reevaluation(s) Reevaluation #1: no further v tach trop likely due to demand fluids ordered improved wants PO pancytopenia Medical Decision Making Medical Decision Making [facility] Narrative: 42 yo female with PMH of ETOH abuse with no hx of withdrawal seizures, SENA, diarrhea, celiac, IBS, GERD, lyte abnormality here with ETOH withdrawal and fall at this time CT of head/cspine, R shoulder and chest xray, she had 17 beat run of wide complex tachycardia immediate magnesium was given, 2L of IVF, 2mg IV ativan and 12m/kg phenobarb was ordered, IV thiamine. pending a trauma finding will admit for ETOH withdrawal. Differential Diagnosis Differential Diagnoses: The differential diagnosis associated with the presentation includes etoh withdrawal, lyte abnormality, trauma from fall Admission/Observation Consideration of admission/observation: Escalation of care including admission/observation considered admit for tele, etoh withdrawal Consult Healthcare Provider Management of the patient was discussed with: Hospitalist (agrees to admit) Lab Data [facility] Lab Attestation statement: I reviewed the patient's lab results. 12/07/22 03:53 12/07/22 03:53 Labs: Lab Results 12/07/22 12/07/22 Range/Units 03:53 04:27 WBC 2.4 L (4.8-10.8) X10*3/uL RBC 3.31 L (4.20-5.50) X10*6/uL Hgb 9.7 L (12.0-16.0) g/dl Hct 29.1 L (37.0-47.0) % MCV 87.9 (80.0-98.0) fL MCH 29.3 (27.0-33.0) pg MCHC 33.3 (31.0-35.0) g/dl RDW 14.9 (11.0-16.0) % Plt Count 6 L* D (160-400) X10*3/uL MPV 10.9 (9.4-12.3) fL Immature Gran % (Auto) 0.4 (0.0-0.4) % Neut % (Auto) 65.1 (45-73) % Lymph % (Auto) 29.1 (20-40) % [place] % (Auto) 4.6 (2-11) % Eos % (Auto) 0.4 (0-4) % Baso % (Auto) 0.4 (0-2) % Lymph # (Auto) 0.7 L (1.2-4.9) X10*3/uL [place] # (Auto) 0.1 (0.1-1.2) X10*3/uL Eos # (Auto) 0.0 (0.0-0.4) X10*3/uL Baso # (Auto) 0.0 (0.0-0.2) X10*3/uL Abs Immat Gran (auto) 0.01 (0.00-0.03) X10*3/uL Absolute Neuts (auto) 1.5 L (2.0-8.3) x10*3/uL Absolute Nucleated RBC 0.000 (0.0-0.012) X10*3/uL Nucleated RBC % (auto) 0.0 (0.0-0.2) /100WBC Smear Tech's Comments VERIFIED Sodium 133 L (135-145) mmol/L Potassium 3.4 (3.3-5.1) mmol/L Chloride 95 L (96-108) mmol/L Carbon Dioxide 17 L (22-29) mmol/L Anion Gap 24 H (12-20) BUN 9 (9-16) mg/dL Creatinine 0.50 (0.5-1.4) mg/dL Estim Creat Clear Calc 118.7 Estimated GFR > 60 Random Glucose 87 (60-115) mg/dL Calcium 8.1 L D (8.4-10.2) mg/dL Magnesium 2.6 (1.6-2.6) mg/dL Total Creatine Kinase 167 H (26-140) U/L Troponin I High Sens 48.3 H (<3.5-17.0) ng/L Lipase 17 (8-78) U/L Ethyl Alcohol 154 mg/dL COVID-19 (JABARI) Negative (Negative) COVID-19 Clin Com See Note Blood Type Cancelled Antibody Screen Cancelled Independent Interpretation I performed an independent interpretation of an: EKG, Plain X-Ray (no trauma) and CT Scan (no trauma) Interpretation: Rate: 126 Rhythm: sinus tachycardia [place]: normal Normal P waves. Normal DANIELA. Normal QRS complex. ST T wave : nonspecific, no JOSE qTC: prolonged prior studies: no acute ischemia The study has been interpreted contemporaneously by me. . Radiology Impression Discussion of test interpretation with radiology: I have reviewed the radiologist's reading. Independent Historian Clinical information obtained from an independent historian. History obtained from or confirmed by: EMS External Record Review External record reviewed: Inpatient record Medications Administered Discontinued Medications Generic Name Dose Route Start Last Admin Trade Name Freq PRN Reason Stop Dose Admin Sodium Chloride 1,000 mls @ 999 mls/hr 12/07/22 02:15 12/07/22 03:56 Ns IVCONT 12/07/22 04:15 999 mls/hr .Q1H1M GHASSAN Administration Magnesium Sulfate 2 gm in 50 mls @ 25 mls/hr 12/07/22 02:10 12/07/22 02:17 Magnesium Sulfate/H2o IV 12/07/22 04:09 25 mls/hr ONCE ONE Administration Thiamine HCl 200 mg/ Sodium 102 mls @ 204 mls/hr 12/07/22 02:10 12/07/22 03:00 Chloride IV 12/07/22 02:39 Infused ONCE ONE Infusion Lorazepam 2 mg 12/07/22 02:19 12/07/22 02:29 Lorazepam 2 Mg/Ml Vial IVPUSH 12/07/22 02:20 2 mg ONCE ONE Administration Phenobarbital Sodium 250 mg 12/07/22 02:41 12/07/22 02:52 Phenobarbital Sodium 130 Mg/Ml Vial IM 12/07/22 02:42 250 mg NOW STA Administration Critical Care Time Critical Care Time Critical Care Time: Yes Total Critical Care Time: 90 Attestation: lyte repletion, management of low platelets, close treatment of alcohol withdrawal, repeat benzo and phenobarb dosing I attest to this time spent taking care of the patient Discharge Plan Discharge Clinical Impression: Alcohol withdrawal seizure, Thrombocytopenia, Pancytopenia, Wide-complex tachycardia Patient Disposition: Admitted As Inpatient
[2022-12-07] MEDS: LORazepam 2 MG/ML VIAL IVPUSH (02:29)
[2022-12-07] MEDS: Thiamine HCL 200 MG in 0.9 % Sodium Chloride 100 ML 204 MG IV (02:29)
[2022-12-07] MEDS: PHENobarbitaL sodium 130 MG/ML VIAL 250 MG IM (02:52)
[2022-12-07 03:58] LABS: Basophils Percent Auto 0.4 % (0-2); Eosinophils Percent Auto 0.4 % (0-4); Hemoglobin 9.7 g/dl (12.0-16.0); Imm Gran Abs Auto 0.01 X10*3/uL (0.00-0.03); Imm Gran Pct Auto 0.4 % (0.0-0.4); MANUAL DIFF FLAG SCAN; PLT ABN DIST 1; SCAN SMEAR FLAG 1
[2022-12-07 04:00] LABS: Hematocrit 29.1 % (37.0-47.0); Lymphocytes Absolute Auto 0.7 X10*3/uL (1.2-4.9); Lymphocytes Percent Auto 29.1 % (20-40); Mean Corpuscular HGB Conc 33.3 g/dl (31.0-35.0); Mean Corpuscular Hemoglobin 29.3 pg (27.0-33.0); Mean Corpuscular Volume 87.9 fL (80.0-98.0); Mean Platelet Volume 10.9 fL (9.4-12.3); Monocytes Absolute Auto 0.1 X10*3/uL (0.1-1.2); Monocytes Percent Auto 4.6 % (2-11); Neutrophils Absolute Auto 1.5 x10*3/uL (2.0-8.3); Neutrophils Percent Auto 65.1 % (45-73); PLT CLUMP 1; Red Blood Count 3.31 X10*6/uL (4.20-5.50); Red Cell Distribution Width 14.9 % (11.0-16.0)
[2022-12-07 04:01] LABS: White Blood Count 2.4 X10*3/uL (4.8-10.8)
[2022-12-07 04:14] LABS: COVID-19 Test Negative (Negative); IDNOW Serial# 9DB6401D
[2022-12-07 04:15] LABS: Anion Gap 24 (12-20); Blood Urea Nitrogen 9 mg/dL (9-16); Calcium 8.1 mg/dL (8.4-10.2); Carbon Dioxide 17 mmol/L (22-29); Chloride 95 mmol/L (96-108); Creatinine Clr Calc Pharmacy 118.7; Estimated Glomerular Filt Rate > 60; Ethanol 154 mg/dL; Glucose Random 87 mg/dL (60-115); Lipase 17 U/L (8-78); Magnesium 2.6 mg/dL (1.6-2.6); Potassium 3.4 mmol/L (3.3-5.1); Sodium 133 mmol/L (135-145)
[2022-12-07 04:17] LABS: Platelet Count 6 X10*3/uL (160-400); SLIDE REVIEW VERIFIED; Troponin-I High Sensitivity 48.3 ng/L (<3.5-17.0)
--- NOTE | 2022-12-07 04:30 | PC.NURSE ---
Pt arrived via EMS from home after a reported fall. PT reports binge drinking for the last 3 days. on 12/06. Pt drink 12 nips- stopped drinking around 6pm. PT reports she fell while walking to the kitchen and hit her head and arm. PT believes she was down for about 3 hours. PT reports LOC. PT reports she has a history. EMS established IV line in left hand, and infused 200ml of saline. PT arrived to ED tachy, vomiting reporting tremors, anxiety, auditory hallucinations and headache. CIWA 22. EKG completed, labs drawn. PT placed on residential monitor, Administered medications as per APR . Second line established in left wrist. PT changed over in to hospital gown. Plan of care on going
[2022-12-07] MEDS: PHENobarbitaL sodium 130 MG/ML VIAL IVPUSH (04:48)
[2022-12-07 05:30] LABS: Troponin-I High Sensitivity 50.4 ng/L (<3.5-17.0)
--- NOTE | 2022-12-07 05:30 | P.HPHOSP_ITS ---
History of Present Illness Date of Service: 12/07/22 Chief Complaint: Fall This is a 42-year-old female with pertinent history of alcohol use disorder with prior admissions for alcohol withdrawal, mood disorder who presents to the emergency department after a fall. Patient states she has been drinking a lot for the last 3 days. Was last drink was 18:00 prior to presentation. She patient states she was drunk as she was going to the bathroom and she fell. She could not get up after the fall. No loss of consciousness prior to the fall. No rhythmic jerking movement of extremities or tongue bite prior to the fall. No history of alcohol withdrawal seizures or DTs. Patient states she is experiencing symptoms of withdrawal including tremors, anxiety, sweating and nausea. No fever, chills, chest discomfort, palpitations, shortness of breath, abdominal pain, changes in urinary or bowel habits. She had a 17 beat run of wide complex tachycardia prior to arrival. In the emergency department, patient was initiated on phenobarb Review of Systems 2 Constitutional: Constitutional: Reports fatigue and Reports lethargy Cardiovascular: Cardiovascular: Reports no additional cardiovascular complaints Respiratory: Respiratory: Reports no additional respiratory complaints Gastrointestinal: Gastrointestinal: Reports no additional gastrointestinal complaints Genitourinary: Genitourinary: Reports no additional female genitourinary complaints Neurologic: Reports tremor(s) Psychiatric: Psychiatric: Reports anxiety Endocrine: Endocrine: Reports fatigue PMFSH Medical History Diverticulitis Pelvic abscess in female Anxiety Alcohol abuse Family History Father Medical history unknown Mother Medical history unknown Paternal Grandfather Cancer Sister Epilepsy Daughter In good health Son In good health Other Substance use disorder Surgical History No pertinent past surgical history Social History Household Members: None Housing: Apartment Do you presently have visiting nurse or other home services: No Alcohol intake: current Alcohol intake frequency: 3 or more drinks per day Alcohol type: beer and hard liquor Patient Tobacco Use Status: Former Tobacco user Quit Date: 2006 Tobacco use type: Cigarette Smoked in Last 30 Days: No e-Cigarette/Vaping Use: Former Use Second Hand Smoke Exposure: No Use of substances other than those prescribed or required for medical reasons: No Advance Directives: Yes Advance Directives on File: Yes Advance Directives Date on File: 01/25/21 Patient : No service: No Current occupational status: unemployed Cognitive needs: No Hearing needs: No Vision needs: No Meds Allergies Allergy/AdvReac Type Severity Reaction Status Date / Time amoxicillin [From Augmentin] Allergy Intermediate Abdominal Verified 11/24/22 10:54 Pain clavulanic acid Allergy Intermediate Abdominal Verified 11/24/22 10:54 [From Augmentin] Pain gabapentin Allergy Intermediate Dizziness Verified 11/24/22 10:54 Sulfa (Sulfonamide Allergy Mild RASH Verified 11/24/22 10:54 Antibiotics) [SULFA (SULFONAMIDE ANTIBIOTICS)] magnesium AdvReac Diarrhea Verified 11/24/22 10:54 Active Medications: Current Medications Pharmacy Consult (Consult Rx Etoh Phenob Im/Po) 1 each MISCELLANE ONCE PRN; Protocol PRN Reason: Consult order Phenobarbital Sodium (Phenobarbital Sodium 130 Mg/Ml Vial) 190 mg IM Q3H GHASSAN Stop: 12/07/22 08:16 Home Medications Medication Instructions Recorded Confirmed Last Taken Type multivitamin 1 tab PO DAILY 08/24/22 11/24/22 Unknown History naltrexone 50 mg tablet 50 mg PO DAILY 08/24/22 11/24/22 Unknown History pantoprazole 40 mg tablet,delayed 40 mg PO DAILY@0630 08/24/22 11/24/22 Unknown History release polyvinyl alcohol 1.4 % eye drops 1 drp ophthalmic (eye) BID 10/26/22 11/24/22 Unknown History thiamine HCl (vitamin B1) 100 mg 100 mg PO DAILY 11/24/22 11/24/22 Unknown History tablet Physical Exam 2 Vital Signs and Narrative: Vital Signs: Last Vital Signs Temp 98.6 F 12/07/22 03:26 Pulse 113 H 12/07/22 03:26 Resp 15 12/07/22 03:26 BP 149/89 H 12/07/22 03:26 Pulse Ox 98 12/07/22 03:26 O2 Del Method Room Air 12/07/22 03:26 BMI result Body Mass Index 20.5 Middle-aged female lying in bed in no distress Neck supple, no JVD Tachycardic with regular rhythm, S1-S2 heard Regular breath sounds bilaterally, no wheezing or crackles appreciated Abdomen soft nontender, no guarding, no rigidity Patient is awake, alert and oriented to self, place, time and person ; no focal motor deficit Psych: Normal mood No pedal edema Results Labs 12/07/22 03:53 12/07/22 03:53 Labs: Laboratory Results - last 24 hr 12/07/22 12/07/22 03:53 04:27 MCV 87.9 MCH 29.3 MCHC 33.3 RDW 14.9 Plt Count 6 L* D MPV 10.9 Immature Gran % (Auto) 0.4 Neut % (Auto) 65.1 Lymph % (Auto) 29.1 [place] % (Auto) 4.6 Eos % (Auto) 0.4 Baso % (Auto) 0.4 Lymph # (Auto) 0.7 L [place] # (Auto) 0.1 Eos # (Auto) 0.0 Baso # (Auto) 0.0 Abs Immat Gran (auto) 0.01 Absolute Neuts (auto) 1.5 L Absolute Nucleated RBC 0.000 Nucleated RBC % (auto) 0.0 Smear Tech's Comments VERIFIED Anion Gap 24 H Estim Creat Clear Calc 118.7 Estimated GFR > 60 Random Glucose 87 Calcium 8.1 L D Magnesium 2.6 Total Creatine Kinase 167 H Lipase 17 Ethyl Alcohol 154 COVID-19 (JABARI) Negative COVID-19 Clin Com See Note Blood Type Cancelled Antibody Screen Cancelled Imaging Radiologist's Impressions: Impressions Cervical Spine CT 12/07/22 03:20 IMPRESSION: No acute findings identified in the head or cervical spine. Head CT 12/07/22 03:20 IMPRESSION: No acute findings identified in the head or cervical spine. Chest X-Ray 12/07/22 04:08 IMPRESSION: No acute cardiopulmonary findings. Shoulder X-Ray 12/07/22 04:08 IMPRESSION: Subtle contour deformity at the greater tuberosity of the humerus raising concern for essentially nondisplaced fracture in the setting of trauma. Assessment and Plan (1) Alcohol intoxication: Status: Acute (2) Thrombocytopenia: Status: Acute Plan This is a 42-year-old female with pertinent history of alcohol use disorder with prior admissions for alcohol withdrawal, mood disorder who presents to the emergency department after a fall. #. Alcohol use disorder with concerns of withdrawal: Patient has been initiated on phenobarb protocol. Initiated thiamine. Monitor CIWA. Consulted Addiction team #. Pancytopenia with severe thrombocytopenia: Obtaining B12 and folate. Consulting Hematology. Patient receiving 1 unit platelets in the ER #. Elevated troponin, likely in the setting of increased demand. Patient without chest discomfort. Trend troponin #. Nondisplaced right shoulder fracture due to fall in the setting of alcohol intoxication: Will consult orthopedic surgery #. Mood disorder: Continue home mood stabilizers Med rec DVT prophylaxis: Mechanical. Hold Lovenox in the setting of thrombocytopenia Admit as inpatient and will require two night minimum hospital stay for monitoring of alcohol withdrawal. Specialist consult pending Time Spent With Patient Time: Total time managing care of this patient today ____ minutes. Quality Stroke Does the patient have a stroke diagnosis?: No VTE Prior VTE?: No VTE Risk Level:: Medical - moderate - high VTE Device Contraindication: N/A - Device Ordered VTE Drug Contraindication: Treatment Not Indicated
[2022-12-07 06:32] LABS: Amphetamine Screen Urine Not Detected (Not Detect); Barbiturates, Urine POSITIVE (Not Detect); Benzodiazepines Screen Urine Not Detected (Not Detect); Cannabinoid Screen Urine Not Detected (Not Detect); Cocaine Screen Urine Not Detected (Not Detect); Fentanyl, urine Not Detected (Not Detect); Opiate Screen Urine Not Detected (Not Detect); Phencyclidine Screen Urine Not Detected (Not Detect)
[2022-12-07] MEDS: PHENobarbitaL sodium 130 MG/ML VIAL 190 MG IM ×2 (06:34→08:44)
--- NOTE | 2022-12-07 06:41 | PC.NURSE ---
Platelets infusing at this time. PT denies any chill, SOB, or discomfort. PT was tachy on arrival. VSS otherwise. Medications administered as per APR. PT assisted on bed rolon. Continues to complain of generalized body pain. Call anguiano within reach. Plan of care ongoing
[2022-12-07 07:20] LABS: Folate 4.1 ng/mL (> or = 4.0); Vitamin B12 508 pg/mL (200-900)
--- NOTE | 2022-12-07 07:45 | PC.NURSE ---
bedside report given peggy haney rn
--- NOTE | 2022-12-07 07:49 | PM.CNOR ---
History of Present Illness HPI Consult date: 12/07/22 Chief complaint: Fall Narrative: Ms. Vanessa is a 42-year-old female with pertinent history of alcohol use disorder with prior admissions for alcohol withdrawal, mood disorder who presents to the emergency department after a fall. Patient states she has been drinking a lot for the last 3 days. Was last drink was 18:00 prior to presentation. She patient states she was drunk as she was going to the bathroom and she fell landing on her right shoulder and head. She could not get up after the fall. X-rays obtained in the ED of the right shoulder were significant for nondisplaced greater tuberosity fracture. Orthopedics was consulted for further evaluation and treatment. Review of Systems Review of Systems: Yes all other systems are reviewed and are negative PMFSH Past Medical History Medical History Diverticulitis Pelvic abscess in female Anxiety Alcohol abuse Family History Family History Father Medical history unknown Mother Medical history unknown Paternal Grandfather Cancer Sister Epilepsy Daughter In good health Son In good health Other Substance use disorder Surgical History Surgical History No pertinent past surgical history Social History Social History Household Members: None Housing: Apartment Do you presently have visiting nurse or other home services: No Alcohol intake: current Alcohol intake frequency: 3 or more drinks per day Alcohol type: beer and hard liquor Patient Tobacco Use Status: Former Tobacco user Quit Date: 2006 Tobacco use type: Cigarette e-Cigarette/Vaping Use: Former Use Second Hand Smoke Exposure: No Advance Directives Date on File: 01/25/21 service: No Current occupational status: unemployed Cognitive needs: No Hearing needs: No Vision needs: No Meds Allergies Allergy/AdvReac Type Severity Reaction Status Date / Time amoxicillin [From Augmentin] Allergy Intermediate Abdominal Verified 11/24/22 10:54 Pain clavulanic acid Allergy Intermediate Abdominal Verified 11/24/22 10:54 [From Augmentin] Pain gabapentin Allergy Intermediate Dizziness Verified 11/24/22 10:54 Sulfa (Sulfonamide Allergy Mild RASH Verified 11/24/22 10:54 Antibiotics) [SULFA (SULFONAMIDE ANTIBIOTICS)] magnesium AdvReac Diarrhea Verified 11/24/22 10:54 Active Medications: Current Medications Acetaminophen (Acetaminophen 325 Mg Tablet) 650 mg PO Q6H PRN PRN Reason: Pain, Mild (Pain Scale 1-3) Melatonin (Melatonin 3 Mg Tablet) 6 mg PO BEDTIME PRN PRN Reason: Insomnia Ondansetron HCl (Ondansetron Hcl 4 Mg/2 Ml Vial) 4 mg IVPUSH Q8H PRN PRN Reason: Nausea and Vomiting Pharmacy Consult (Consult Rx Etoh Phenob Im/Po) 1 each MISCELLANE ONCE PRN; Protocol PRN Reason: Consult order Phenobarbital (Phenobarbital 15 Mg Tablet) 45 mg PO BID [facility]; Protocol Stop: 12/08/22 21:01 Phenobarbital (Phenobarbital 30 Mg Tablet) 30 mg PO BID [facility]; Protocol Stop: 12/10/22 21:01 Phenobarbital (Phenobarbital 30 Mg Tablet) 30 mg PO DAILY [facility]; Protocol Stop: 12/12/22 09:01 Phenobarbital Sodium (Phenobarbital Sodium 130 Mg/Ml Vial) 190 mg IM Q3H GHASSAN Stop: 12/07/22 08:16 Last Admin: 12/07/22 06:34 Dose: 190 mg Sodium Chloride (0.9 % Sodium Chloride Flush 3 Ml Syringe) 3 ml IVFLUSH [facility] Thiamine HCl (Thiamine Hcl 100 Mg Tablet) 100 mg PO DAILY [facility] Home Medications Medication Instructions Recorded Confirmed Last Taken Type multivitamin 1 tab PO DAILY 08/24/22 11/24/22 Unknown History naltrexone 50 mg tablet 50 mg PO DAILY 08/24/22 11/24/22 Unknown History pantoprazole 40 mg tablet,delayed 40 mg PO DAILY@0630 08/24/22 11/24/22 Unknown History release polyvinyl alcohol 1.4 % eye drops 1 drp ophthalmic (eye) BID 10/26/22 11/24/22 Unknown History thiamine HCl (vitamin B1) 100 mg 100 mg PO DAILY 11/24/22 11/24/22 Unknown History tablet Physical Exam Vital Signs: Vital Signs: Last Vital Signs Temp 98.9 F 12/07/22 07:22 Pulse 125 H 12/07/22 07:22 Resp 13 12/07/22 07:22 BP 141/77 H 12/07/22 07:22 Pulse Ox 98 12/07/22 07:22 O2 Del Method Room Air 12/07/22 07:22 BMI result Body Mass Index 20.5 Const: General: cooperative, healthy appearing and no acute distress Resp: Effort & Inspection: normal respiratory effort and able to speak in complete sentences Cardio: Rate: regular rate Peripheral pulses: Peripheral pulses 2+ throughout GI: Palpation (GI): Soft to palpation Skin: Lesions: no lesions Rashes: no rashes Extrem: Other: Right upper extremity pain with any motion. Able to move hand and wrist. Sensation intact. Radial pulse intact. Results Labs 12/07/22 03:53 12/07/22 03:53 Labs: Abnormal lab results 12/07/22 12/07/22 12/07/22 Range/Units 03:53 04:59 06:15 WBC 2.4 L (4.8-10.8) X10*3/uL RBC 3.31 L (4.20-5.50) X10*6/uL Hgb 9.7 L (12.0-16.0) g/dl Hct 29.1 L (37.0-47.0) % Plt Count 6 L* D (160-400) X10*3/uL Lymph # (Auto) 0.7 L (1.2-4.9) X10*3/uL Absolute Neuts (auto) 1.5 L (2.0-8.3) x10*3/uL Sodium 133 L (135-145) mmol/L Chloride 95 L (96-108) mmol/L Carbon Dioxide 17 L (22-29) mmol/L Anion Gap 24 H (12-20) Calcium 8.1 L D (8.4-10.2) mg/dL Total Creatine Kinase 167 H (26-140) U/L Troponin I High Sens 48.3 H 50.4 H* (<3.5-17.0) ng/L Ur Barbiturates Screen POSITIVE H (Not Detect) H & H 12/07/22 Range/Units 03:53 Hgb 9.7 L (12.0-16.0) g/dl Hct 29.1 L (37.0-47.0) % All other labs normal. Assessment and Plan (1) Alcohol withdrawal seizure: Qualifiers: Complication of substance-induced condition: uncomplicated Qualified Code(s): F10.930 - Alcohol use, unspecified with withdrawal, uncomplicated; R56.9 - Unspecified convulsions Status: Acute (2) Alcohol intoxication: Status: Acute (3) Alcohol use disorder, moderate, dependence: Status: Acute (4) Alcohol withdrawal: Status: Acute (5) Alcohol use disorder, severe, dependence: Status: Acute (6) Alcohol withdrawal: Status: Acute (7) Fracture of proximal end of right humerus: Status: Acute X-rays reviewed and significant for greater tuberosity fracture right humerus Restrict External Rotation and Abduction Sling for comfort Encourage movement of Elbow hand and wrist to avoid stiffness No additional orthopedic surgical intervention needed at this time - June f/ outpatient Time Spent With Patient Time: Total time managing care of this patient today ____ minutes. Procedures Date of Service Date of Service: 12/07/22
[2022-12-07] MEDS: Thiamine HCL 100 MG TABLET PO (08:43)
[2022-12-07] MEDS: PHENobarbitaL 15 MG TABLET 45 MG PO ×2 (08:44→20:43)
[2022-12-07] MEDS: 0.9 % Sodium Chloride Flush 3 ML SYRINGE IVFLUSH ×2 (08:46→17:32)
--- NOTE | 2022-12-07 09:26 | MHC.CM.PN ---
CM ATTEMPTED TO MEET W/PT HOWEVER PT ON COMMODE, CM TO REVISIT.
[2022-12-07] MEDS: Acetaminophen 325 MG TABLET 650 MG PO (09:44)
[2022-12-07 10:08] LABS: Troponin-I High Sensitivity 47.7 ng/L (<3.5-17.0)
--- NOTE | 2022-12-07 10:41 | HO.PM.IMPN ---
Subjective Subjective Date of Service: 12/07/22 Interval History: withdrawal Physical Exam Vital Signs: Vital Signs: Last Vital Signs Temp 99.5 F 12/07/22 07:53 Pulse 126 H 12/07/22 07:53 Resp 20 12/07/22 07:53 BP 124/68 12/07/22 07:53 Pulse Ox 98 12/07/22 07:53 O2 Del Method Room Air 12/07/22 07:53 BMI result Body Mass Index 20.5 tremulous, right shoulder sling, lungs clear, alert oriented times 3 Objective Data Active Medications Acetaminophen (Acetaminophen 325 Mg Tablet) 650 mg PO Q6H PRN PRN Reason: Pain, Mild (Pain Scale 1-3) Last Admin: 12/07/22 09:44 Dose: 650 mg Documented By: TREY Melatonin (Melatonin 3 Mg Tablet) 6 mg PO BEDTIME PRN PRN Reason: Insomnia Ondansetron HCl (Ondansetron Hcl 4 Mg/2 Ml Vial) 4 mg IVPUSH Q8H PRN PRN Reason: Nausea and Vomiting Oxycodone HCl (Oxycodone Hcl Immed Release 5 Mg Tablet) 5 mg PO Q4H PRN PRN Reason: moderate pain Pharmacy Consult (Consult Rx Etoh Phenob Im/Po) 1 each MISCELLANE ONCE PRN; Protocol PRN Reason: Consult order Phenobarbital (Phenobarbital 15 Mg Tablet) 45 mg PO BID [facility]; Protocol Stop: 12/08/22 21:01 Last Admin: 12/07/22 08:44 Dose: 45 mg Documented By: TREY Phenobarbital (Phenobarbital 30 Mg Tablet) 30 mg PO BID [facility]; Protocol Stop: 12/10/22 21:01 Phenobarbital (Phenobarbital 30 Mg Tablet) 30 mg PO DAILY [facility]; Protocol Stop: 12/12/22 09:01 Sodium Chloride (0.9 % Sodium Chloride Flush 3 Ml Syringe) 3 ml IVFLUSH QSHIFT [facility] Last Admin: 12/07/22 08:46 Dose: 3 ml Documented By: TREY Thiamine HCl (Thiamine Hcl 100 Mg Tablet) 100 mg PO DAILY [facility] Last Admin: 12/07/22 08:43 Dose: 100 mg Documented By: TREY Labs 12/07/22 03:53 12/07/22 03:53 Labs: Laboratory Results - last 24 hr 12/07/22 12/07/22 12/07/22 03:53 04:27 04:59 MCV 87.9 MCH 29.3 MCHC 33.3 RDW 14.9 Plt Count 6 L* D MPV 10.9 Immature Gran % (Auto) 0.4 Neut % (Auto) 65.1 Lymph % (Auto) 29.1 [place] % (Auto) 4.6 Eos % (Auto) 0.4 Baso % (Auto) 0.4 Lymph # (Auto) 0.7 L [place] # (Auto) 0.1 Eos # (Auto) 0.0 Baso # (Auto) 0.0 Abs Immat Gran (auto) 0.01 Absolute Neuts (auto) 1.5 L Absolute Nucleated RBC 0.000 Nucleated RBC % (auto) 0.0 Smear Tech's Comments VERIFIED Anion Gap 24 H Estim Creat Clear Calc 118.7 Estimated GFR > 60 Random Glucose 87 Calcium 8.1 L D Magnesium 2.6 Total Creatine Kinase 167 H Lipase 17 Vitamin B12 Folate Urine Opiates Screen Urine Fentanyl Screen Ur Barbiturates Screen Ur Phencyclidine Scrn Ur Amphetamines Screen U Benzodiazepines Scrn Urine Cocaine Screen U Marijuana (THC) Screen Ethyl Alcohol 154 COVID-19 (JABARI) Negative COVID-19 Clin Com See Note Blood Type Cancelled A Positive Antibody Screen Cancelled NEGATIVE 12/07/22 12/07/22 06:15 06:26 MCV MCH MCHC RDW Plt Count MPV Immature Gran % (Auto) Neut % (Auto) Lymph % (Auto) [place] % (Auto) Eos % (Auto) Baso % (Auto) Lymph # (Auto) [place] # (Auto) Eos # (Auto) Baso # (Auto) Abs Immat Gran (auto) Absolute Neuts (auto) Absolute Nucleated RBC Nucleated RBC % (auto) Smear Tech's Comments Anion Gap Estim Creat Clear Calc Estimated GFR Random Glucose Calcium Magnesium Total Creatine Kinase Lipase Vitamin B12 508 Folate 4.1 Urine Opiates Screen Not Detected Urine Fentanyl Screen Not Detected Ur Barbiturates Screen POSITIVE H Ur Phencyclidine Scrn Not Detected Ur Amphetamines Screen Not Detected U Benzodiazepines Scrn Not Detected Urine Cocaine Screen Not Detected U Marijuana (THC) Screen Not Detected Ethyl Alcohol COVID-19 (JABARI) COVID-19 Clin Com Blood Type Antibody Screen Assessment and Plan (1) Fracture of proximal end of right humerus: Status: Acute Plan 42F PMH etoh dependence, mood disorder presented with fall, right shoulder pain, found to have severe thrombocytopenia and etoh withdrawal Alcohol dependence with withdrawal Phenobarbital, CIWA Severe thrombocytopenia Likely due to alcohol, follow-up CBC, hematology eval Mechanical fall complicated by proximal humeral fracture Sling for comfort, orthopedics appreciated- can follow up with Orthopedics as outpatient DVT prophylaxis-mechanical due to severe thrombocytopenia Full code Reason for continued hospitalization: Severe thrombocytopenia, active withdrawal Time Spent With Patient Time: Total time managing care of this patient today ____ minutes. Quality Stroke Does the patient have a stroke diagnosis?: No VTE Prior VTE?: No VTE Risk Level:: Medical - moderate - high VTE Device Contraindication: N/A - Device Ordered VTE Drug Contraindication: Treatment Not Indicated
[2022-12-07 13:35] LABS: Hematocrit 28.9 % (37.0-47.0); Hemoglobin 10.1 g/dl (12.0-16.0); Mean Corpuscular HGB Conc 34.9 g/dl (31.0-35.0); Mean Corpuscular Hemoglobin 29.4 pg (27.0-33.0); Mean Platelet Volume 10.5 fL (9.4-12.3); Platelet Count 122 X10*3/uL (160-400); Red Blood Count 3.44 X10*6/uL (4.20-5.50); Red Cell Distribution Width 15.2 % (11.0-16.0); White Blood Count 6.6 X10*3/uL (4.8-10.8)
[2022-12-07] MEDS: oxyCODONE HCl Immed Release 5 MG TABLET PO ×2 (14:15→22:01)
[2022-12-07] MEDS: ondansetron HCL 4 MG/2 ML VIAL IVPUSH (14:16)
--- NOTE | 2022-12-07 14:52 | MHC.RECOVRN ---
Met with pt in 487 after consult placed to Addiction Medicine for alcohol use. Pt had presented to the ED after a fall and subsequently admitted for AUD with concerns of withdrawal, thrombocytopenia, and nondisplaced right shoulder fracture. Pt sitting in bed, asleep, wakes to voice. Pt reports she has been drinking 12-20 nips of flavored vodka x 4 days. Prior to that, pt had been abstinent for over a month. Pt reports her cell phone and her wifi stopped working which caused her to be bored and not able to talk to my mom or daughter. Pt continued to state I went to the store for juice and I left with a bag of nips and I don't know why. Pt attributes her abstinence to family support, talking to her mom every day, staying busy cooking and coloring. Pt also has a quality assurance coach who she finds helpful. During the month pt reports she was in touch with [employer], got caught up on rent, obtained her ID, among other things. Pt is proud of what she accomplished and regretful for buying the alcohol. Discussed other recovery supports, pt is not interested at this time. Pt plans to speak with quality assurance coach about what has happened and return to abstinence. Pt provided with written resources as well as t/w contact information. Denies questions or concerns at this time. Discussed with Kerrie Mulligan APRN.
--- NOTE | 2022-12-07 15:57 | MHC.CM.PN ---
Emr reviewed,pt admitted w/etoh wthdrawal and fall, cm met w/pt who reports she lives alone, is indep w/all care, denies use of dme/services, pt does report she has been working w/[facility] to find a new place to live as she has not been working and will need to move, pt also reports she was applying for a job at [employer] but computer was not working and her phone is completely kim and she cant access her contacts, pt uses [facility] vs family for transport. Pt provided w/[facility] cares resource guide 1/2 admits ago and declines need for another copy. dcp: home self-care w/family for transport
--- NOTE | 2022-12-08 | ECG_ITS ---
Test Reason : cp Blood Pressure : / mmHG Vent. Rate : 132 BPM Atrial Rate : 132 BPM P-R Int : 118 ms QRS Dur : 074 ms QT Int : 304 ms P-R-T Axes : 032 075 036 degrees QTc Int : 450 ms Sinus tachycardia Otherwise normal ECG When compared with ECG of 07-DEC-2022 02:30, No significant change was found Referred By: [facility] Electronically Signed By:THELMA ABRAHAM MD
[2022-12-08] MEDS: Acetaminophen 325 MG TABLET 650 MG PO (00:18)
[2022-12-08] MEDS: oxyCODONE HCl Immed Release 5 MG TABLET PO ×5 (02:38→23:12)
[2022-12-08 03:52] VITALS: BP 112/68; PULSE 117; RESP 20; TEMP 36.7; O2SAT 93
[2022-12-08 07:04] LABS: MANUAL DIFF FLAG NO
[2022-12-08 07:13] LABS: Basophils Percent Auto 0.3 % (0-2); Eosinophils Absolute Auto 0.2 X10*3/uL (0.0-0.4); Eosinophils Percent Auto 4.8 % (0-4); Hematocrit 30.8 % (37.0-47.0); Hemoglobin 10.8 g/dl (12.0-16.0); Imm Gran Abs Auto 0.01 X10*3/uL (0.00-0.03); Imm Gran Pct Auto 0.3 % (0.0-0.4); Lymphocytes Absolute Auto 1.3 X10*3/uL (1.2-4.9); Mean Corpuscular HGB Conc 35.1 g/dl (31.0-35.0); Mean Corpuscular Hemoglobin 29.7 pg (27.0-33.0); Mean Corpuscular Volume 84.6 fL (80.0-98.0); Mean Platelet Volume 10.5 fL (9.4-12.3); Monocytes Absolute Auto 0.3 X10*3/uL (0.1-1.2); Monocytes Percent Auto 7.4 % (2-11); Neutrophils Absolute Auto 2.2 x10*3/uL (2.0-8.3); Neutrophils Percent Auto 55.2 % (45-73); Platelet Count 113 X10*3/uL (160-400); Red Blood Count 3.64 X10*6/uL (4.20-5.50); Red Cell Distribution Width 14.8 % (11.0-16.0); White Blood Count 3.9 X10*3/uL (4.8-10.8)
[2022-12-08 07:34] VITALS: BP 118/80; PULSE 118; RESP 20; TEMP 36.8; O2SAT 97
[2022-12-08 07:38] LABS: Anion Gap 15 (12-20); Blood Urea Nitrogen 4 mg/dL (9-16); Calcium 9.4 mg/dL (8.4-10.2); Carbon Dioxide 28 mmol/L (22-29); Chloride 95 mmol/L (96-108); Creatinine Clr Calc Pharmacy 121.1; Estimated Glomerular Filt Rate > 60; Glucose Fasting 126 mg/dL (60-99); Potassium 2.4 mmol/L (3.3-5.1); Sodium 136 mmol/L (135-145)
--- NOTE | 2022-12-08 08:03 | PHA.MEDREC ---
Pharmacy Consult ? Medication Reconciliation Pharmacy has completed the medication reconciliation.
[2022-12-08 08:19] LABS: Magnesium 1.6 mg/dL (1.6-2.6)
[2022-12-08] MEDS: PHENobarbitaL 15 MG TABLET 45 MG PO ×2 (08:33→20:39)
[2022-12-08] MEDS: Thiamine HCL 100 MG TABLET PO (08:33)
[2022-12-08] MEDS: Multivitamin TABLET 1 TAB PO (08:33)
[2022-12-08] MEDS: 0.9 % Sodium Chloride Flush 3 ML SYRINGE IVFLUSH ×2 (08:34→20:40)
[2022-12-08] MEDS: Potassium Chloride/H20 10 MEQ/100 ML PIGGYBACK 100 MEQ IV ×2 (08:34→10:56)
[2022-12-08] MEDS: Potassium Chloride Packet 20 MEQ PACKET 40 MEQ PO ×2 (08:38→20:40)
--- NOTE | 2022-12-08 10:38 | HO.PM.IMPN ---
Subjective Subjective Date of Service: 12/08/22 Interval History: f/u on right shoulder injury, alcohol withdrawal interval history: right shoulder pain, tachycardia Physical Exam Vital Signs: Vital Signs: Last Vital Signs Temp 98.2 F 12/08/22 07:34 Pulse 118 H 12/08/22 07:34 Resp 20 12/08/22 07:34 BP 118/80 12/08/22 07:34 Pulse Ox 97 12/08/22 07:34 O2 Del Method Room Air 12/08/22 07:34 BMI result Body Mass Index 20.5 Const: Other: General: AO X 3, no acute distress Resp: CTA bilateral CVS: S1,S2,RRR GI: +BS, NT, no distention Skin: No rash Neuro: motor grossly intact MSK; right shoulder sling Psych: appropriate affect Objective Data Active Medications Acetaminophen (Acetaminophen 325 Mg Tablet) 650 mg PO Q6H PRN PRN Reason: Pain, Mild (Pain Scale 1-3) Last Admin: 12/08/22 00:18 Dose: 650 mg Documented By: CATALINO Clonidine HCl (Clonidine Hcl 0.1 Mg Tablet) 0.1 mg PO TID PRN; Protocol PRN Reason: Anxiety Hydroxyzine HCl (Hydroxyzine Hcl 25 Mg Tablet) 25 mg PO BEDTIME GHASSAN Melatonin (Melatonin 3 Mg Tablet) 6 mg PO BEDTIME PRN PRN Reason: Insomnia Multivitamins/Vitamin C (Multivitamin Tablet) 1 tab PO DAILY [facility] Last Admin: 12/08/22 08:33 Dose: 1 tab Documented By: CANDY Naproxen (Naproxen 500 Mg Tablet) 500 mg PO BID PRN PRN Reason: Pain, Mild (Pain Scale 1-3) Non-Formulary Medication (Hyoscyamine Sulfate) 0.125 mg PO QID GHASSAN Ondansetron HCl (Ondansetron Hcl 4 Mg/2 Ml Vial) 4 mg IVPUSH Q8H PRN PRN Reason: Nausea and Vomiting Last Admin: 12/07/22 14:16 Dose: 4 mg Documented By: TREY Oxycodone HCl (Oxycodone Hcl Immed Release 5 Mg Tablet) 5 mg PO Q4H PRN PRN Reason: moderate pain Last Admin: 12/08/22 07:43 Dose: 5 mg Documented By: CANDY Pharmacy Consult (Consult Rx Etoh Phenob Im/Po) 1 each MISCELLANE ONCE PRN; Protocol PRN Reason: Consult order Phenobarbital (Phenobarbital 15 Mg Tablet) 45 mg PO BID [facility]; Protocol Stop: 12/08/22 21:01 Last Admin: 12/08/22 08:33 Dose: 45 mg Documented By: CANDY Phenobarbital (Phenobarbital 30 Mg Tablet) 30 mg PO BID [facility]; Protocol Stop: 12/10/22 21:01 Phenobarbital (Phenobarbital 30 Mg Tablet) 30 mg PO DAILY [facility]; Protocol Stop: 12/12/22 09:01 Potassium Chloride (Potassium Chloride Packet 20 Meq Packet) 40 meq PO Q12H [facility] Last Admin: 12/08/22 08:38 Dose: 40 meq Documented By: CANDY Sodium Chloride (0.9 % Sodium Chloride Flush 3 Ml Syringe) 3 ml IVFLUSH QSHIFT [facility] Last Admin: 12/08/22 08:34 Dose: 3 ml Documented By: CANDY Thiamine HCl (Thiamine Hcl 100 Mg Tablet) 100 mg PO DAILY [facility] Last Admin: 12/08/22 08:33 Dose: 100 mg Documented By: CANDY Labs 12/08/22 07:01 12/08/22 07:01 Labs: Laboratory Results - last 24 hr 12/07/22 12/07/22 12/08/22 03:53 13:23 07:01 MCV 84.0 84.6 MCH 29.4 29.7 MCHC 34.9 35.1 H RDW 15.2 14.8 Plt Count 122 L D 113 L MPV 10.5 10.5 Immature Gran % (Auto) 0.3 Neut % (Auto) 55.2 Lymph % (Auto) 32.0 [place] % (Auto) 7.4 Eos % (Auto) 4.8 H Baso % (Auto) 0.3 Lymph # (Auto) 1.3 [place] # (Auto) 0.3 Eos # (Auto) 0.2 Baso # (Auto) 0.0 Abs Immat Gran (auto) 0.01 Absolute Neuts (auto) 2.2 Absolute Nucleated RBC 0.000 0.000 Nucleated RBC % (auto) 0.0 0.0 Smear Path Review SEE NOTE Anion Gap 15 Estim Creat Clear Calc Estimated GFR Random Glucose Fasting Glucose Calcium Magnesium 12/08/22 12/08/22 12/08/22 07:01 07:01 07:01 MCV MCH MCHC RDW Plt Count MPV Immature Gran % (Auto) Neut % (Auto) Lymph % (Auto) [place] % (Auto) Eos % (Auto) Baso % (Auto) Lymph # (Auto) [place] # (Auto) Eos # (Auto) Baso # (Auto) Abs Immat Gran (auto) Absolute Neuts (auto) Absolute Nucleated RBC Nucleated RBC % (auto) Smear Path Review Anion Gap Cancelled Estim Creat Clear Calc 121.1 Cancelled Estimated GFR > 60 Cancelled Random Glucose Cancelled Fasting Glucose 126 H Calcium 9.4 D Magnesium 12/08/22 07:01 MCV MCH MCHC RDW Plt Count MPV Immature Gran % (Auto) Neut % (Auto) Lymph % (Auto) [place] % (Auto) Eos % (Auto) Baso % (Auto) Lymph # (Auto) [place] # (Auto) Eos # (Auto) Baso # (Auto) Abs Immat Gran (auto) Absolute Neuts (auto) Absolute Nucleated RBC Nucleated RBC % (auto) Smear Path Review Anion Gap Estim Creat Clear Calc Estimated GFR Random Glucose Fasting Glucose Calcium Cancelled Magnesium 1.6 Assessment and Plan (1) Fracture of proximal end of right humerus: Status: Acute Plan 42F PMH etoh dependence, mood disorder presented with fall, right shoulder pain, found to have severe thrombocytopenia and etoh withdrawal Alcohol dependence with withdrawal Phenobarbital, CIWA..seems pretty good today Severe thrombocytopenia, initial 6 and after transfusion now 113 Likely due to alcohol, follow-up CBC, hematology eval Mechanical fall complicated by proximal humeral fracture Sling for comfort, orthopedics appreciated- can follow up with Orthopedics as outpatient Tachycardia--likely related to pain, withdrawal, ECG..pain controle Hypokalema d/t alcoholism--IV and PO replacement, mag replacment DVT prophylaxis-mechanical due to severe thrombocytopenia Full code Reason for continued hospitalization: Severe thrombocytopenia, active withdrawal Time Spent With Patient Time: Total time managing care of this patient today ____ minutes. Quality Stroke Does the patient have a stroke diagnosis?: No VTE Prior VTE?: No VTE Risk Level:: Medical - moderate - high VTE Device Contraindication: N/A - Device Ordered VTE Drug Contraindication: Treatment Not Indicated
[2022-12-08 11:20] VITALS: BP 133/92; PULSE 128; RESP 20; TEMP 37; O2SAT 97
[2022-12-08] MEDS: Magnesium Sulfate/H2O 2 GM/50 ML PIGGYBACK IV (13:20)
[2022-12-08 15:56] LABS: Anion Gap 16 (12-20); Blood Urea Nitrogen 3 mg/dL (9-16); Calcium 9.2 mg/dL (8.4-10.2); Carbon Dioxide 27 mmol/L (22-29); Chloride 93 mmol/L (96-108); Creatinine Clr Calc Pharmacy 109.9; Estimated Glomerular Filt Rate > 60; Glucose Random 155 mg/dL (60-115); Potassium 3.1 mmol/L (3.3-5.1); Sodium 133 mmol/L (135-145)
[2022-12-08 16:00] VITALS: BP 140/87; PULSE 98; RESP 18; TEMP 36.4; O2SAT 97
[2022-12-08] MEDS: ondansetron HCL 4 MG/2 ML VIAL IVPUSH (17:09)
--- NOTE | 2022-12-08 17:34 | P.CNHO_ITS ---
Subjective - Subjective Chief complaint: Consult for: Thrombocytopenia. Patient: new to practice Consult date: 12/08/22 Requesting Physician: Alfred. Primary Care Provider: Ollie Pulliam PA-C Family Provider: Obdulio Pulliam. Medical Summary: DIAGNOSIS: THROMBOCYTOPENIA. HPI - Consult Narrative Reason for consult: Consult for: Thrombocytopenia. Narrative: Susan Vanessa is a 42 year old lady admitted with thrombocytopenia. Pertinent history: She presented to the emergency department after a fall. She had been drinking a lot for the last 3 days. Was last drink was 18:00 prior to presentation. She stated she was drunk as she was going to the bathroom and she fell. She could not get up after the fall. No loss of consciousness prior to the fall. No rhythmic jerking movement of extremities or tongue bite prior to the fall. No history of alcohol withdrawal seizures or DTs. Patient states she is experiencing symptoms of withdrawal including tremors, anxiety, sweating and nausea. No fever, chills, chest discomfort, palpitations, shortness of breath, abdominal pain, changes in urinary or bowel habits. She had a 17 beat run of wide complex tachycardia prior to arrival. History positive for alcohol use disorder with prior admissions for alcohol withdrawal, mood disorder. In the emergency department, patient was initiated on phenobarb Review of Systems 2 Constitutional: Constitutional: Reports fatigue and Reports lethargy Cardiovascular: Cardiovascular: Reports no additional cardiovascular complaints Respiratory: Respiratory: Reports no additional respiratory complaints Gastrointestinal: Gastrointestinal: Reports no additional gastrointestinal complaints Genitourinary: Genitourinary: Reports no additional female genitourinary complaints Neurologic: Reports tremor(s) Psychiatric: Psychiatric: Reports anxiety Endocrine: Endocrine: Reports fatigue [facility] Medical History Diverticulitis Pelvic abscess in female Anxiety Alcohol abuse Family History: Father Medical history unknown Mother Medical history unknown Paternal Grandfather Cancer Sister Epilepsy Daughter In good health Son In good health Other Substance use disorder Review of Systems - Constitutional Reports system reviewed and no additional complaints, except as documented, Reports anorexia, Reports fatigue, Reports frequent falls, Reports lack of energy, Reports malaise, Reports poor appetite, Reports weight loss, Denies fever(s) - Eyes Reports system reviewed and no additional complaints, except as documented - ENT Reports system reviewed and no additional complaints, except as documented - Cardiovascular Reports system reviewed and no additional complaints, except as documented - Respiratory Reports no additional respiratory complaints - Gastrointestinal Reports system reviewed and no additional complaints, except as documented - Genitourinary Reports no additional female genitourinary complaints - Musculoskeletal Reports system reviewed and no additional complaints, except as documented - Integumentary/Breasts Skin/Breast: Reports no additional skin complaints - Neurologic Reports tremor(s) - Psychiatric Reports system reviewed and no additional complaints, except as documented - Endocrine Reports no additional endocrine complaints - Hematologic/Lymphatic Reports system reviewed and no additional complaints, except as documented - Allergic/Immunologic Reports system reviewed and no additional complaints, except as documented Oncology Screenings - ECOG Performance Status ECOG Performance Status: 1 [facility] Medical History: Medical History (Last Reviewed 12/10/22 @ 11:20 by Camilla Maddox PT) Alcohol abuse Anxiety Diverticulitis Pelvic abscess in female Functional capacity: uses cane/walker Patient : No Family History: Family History (Last Reviewed 12/07/22 @ 05:35 by Marta Manning MD) Father Medical history unknown Mother Medical history unknown Paternal Grandfather Cancer Sister Epilepsy Daughter In good health Son In good health Other Substance use disorder Surgical History: Surgical History (Last Reviewed 12/10/22 @ 11:20 by Camilla Maddox, RODERICK) No pertinent past surgical history Social History: Social History (Last Reviewed 12/07/22 @ 05:35 by Marta Manning MD) Living Situation History: Household Members: None Housing: Apartment Do you presently have visiting nurse or other home services: No Tobacco History: Patient Tobacco Use Status: Former Tobacco user Tobacco use type: Cigarette Smoke Quit Date: 2006 e-Cigarette/Vaping Use: Never Used Second Hand Smoke Exposure: No Advance Directives: Advance Directives Date on File: 01/25/21 Occupation Assessmet: service: No Current occupational status: unemployed Home Medications and Allergies Current Medications: Current Medications Acetaminophen (Acetaminophen 325 Mg Tablet) 650 mg PO Q6H PRN PRN Reason: Pain, Mild (Pain Scale 1-3) Last Admin: 12/08/22 00:18 Dose: 650 mg Clonidine HCl (Clonidine Hcl 0.1 Mg Tablet) 0.1 mg PO TID PRN; Protocol PRN Reason: Anxiety Hydroxyzine HCl (Hydroxyzine Hcl 25 Mg Tablet) 25 mg PO BEDTIME GHASSAN Melatonin (Melatonin 3 Mg Tablet) 6 mg PO BEDTIME PRN PRN Reason: Insomnia Multivitamins/Vitamin C (Multivitamin Tablet) 1 tab PO DAILY [facility] Last Admin: 12/08/22 08:33 Dose: 1 tab Naproxen (Naproxen 500 Mg Tablet) 500 mg PO BID PRN PRN Reason: Pain, Mild (Pain Scale 1-3) Non-Formulary Medication (Hyoscyamine Sulfate) 0.125 mg PO QID [facility] Ondansetron HCl (Ondansetron Hcl 4 Mg/2 Ml Vial) 4 mg IVPUSH Q8H PRN PRN Reason: Nausea and Vomiting Last Admin: 12/08/22 17:09 Dose: 4 mg Oxycodone HCl (Oxycodone Hcl Immed Release 5 Mg Tablet) 5 mg PO Q4H PRN PRN Reason: moderate pain Last Admin: 12/08/22 17:12 Dose: 5 mg Pharmacy Consult (Consult Rx Etoh Phenob Im/Po) 1 each MISCELLANE ONCE PRN; Protocol PRN Reason: Consult order Phenobarbital (Phenobarbital 15 Mg Tablet) 45 mg PO BID [facility]; Protocol Stop: 12/08/22 21:01 Last Admin: 12/08/22 08:33 Dose: 45 mg Phenobarbital (Phenobarbital 30 Mg Tablet) 30 mg PO BID [facility]; Protocol Stop: 12/10/22 21:01 Phenobarbital (Phenobarbital 30 Mg Tablet) 30 mg PO DAILY [facility]; Protocol Stop: 12/12/22 09:01 Potassium Chloride (Potassium Chloride Packet 20 Meq Packet) 40 meq PO Q12H [facility] Last Admin: 12/08/22 08:38 Dose: 40 meq Sodium Chloride (0.9 % Sodium Chloride Flush 3 Ml Syringe) 3 ml IVFLUSH QSHIFT [facility] Last Admin: 12/08/22 15:29 Dose: Not Given Thiamine HCl (Thiamine Hcl 100 Mg Tablet) 100 mg PO DAILY [facility] Last Admin: 12/08/22 08:33 Dose: 100 mg Home Medications Medication Instructions Recorded Confirmed Type multivitamin 1 tab PO DAILY 08/24/22 12/08/22 History Allergies Allergy/AdvReac Type Severity Reaction Status Date / Time amoxicillin [From Augmentin] Allergy Intermediate Abdominal Verified 11/24/22 10:54 Pain clavulanic acid Allergy Intermediate Abdominal Verified 11/24/22 10:54 [From Augmentin] Pain gabapentin Allergy Intermediate Dizziness Verified 11/24/22 10:54 Sulfa (Sulfonamide Allergy Mild RASH Verified 11/24/22 10:54 Antibiotics) [SULFA (SULFONAMIDE ANTIBIOTICS)] magnesium AdvReac Diarrhea Verified 11/24/22 10:54 Physical Exam Vital signs: Vital Signs Temp 97.6 F 12/08/22 16:00 Pulse 98 12/08/22 16:00 Resp 18 12/08/22 16:00 BP 140/87 H 12/08/22 16:00 Pulse Ox 97 12/08/22 16:00 O2 Del Method Room Air 12/08/22 16:00 Intake & Output 12/07/22 12/08/22 12/08/22 18:59 06:59 18:59 Intake Total 720 / 2350 1630 / 2350 970 / 970 Output Total 200 / 600 400 / 600 700 / 700 Balance 520 / 1750 1230 / 1750 270 / 270 Urine Output (Average ml/kg/hr) 0.32 0.64 1.11 Intake: Intake, Oral Amount 720 / 1200 480 / 1200 720 / 720 Intake, IV Amount 1150 / 1150 250 / 250 0.9 % Sodium Chloride 100 ml @ 100 / 100 100 mls/hr IV ONCE ONE Rx#: [id number] Magnesium Sulfate/H2O 2 gm In 50 / 50 50 / 50 50 ml @ 25 mls/hr IV ONCE ONE Rx#:[id number] Potassium Chloride/H20 10 meq 200 / 200 In 100 ml @ 100 mls/hr IV Q1H [facility] Rx#:[id number] 0.9 % Sodium Chloride 1,000 ml 1000 / 1000 @ 999 mls/hr IVCONT .Q1H1M [facility] Rx#:[id number] Output: Output, Urine Amount 200 / 600 400 / 600 700 / 700 Other: Breakfast % Eaten 100% 100% Lunch % Eaten 75% 75% Number of Unmeasured Voids 2 Number of Bowel Movements 2 Urine Bedside Commode Bedside Commode Bedside Commode Urine Color [place] Yellow Yellow Last Bowel Movement 12/06/22 12/08/22 Stool Bedside Commode Stool Amount Moderate Stool Color Brown Stool Consistency Soft Weight 52.4 kg - Routine HEENT Exam Head: Present: normocephalic ENT: Present: mucous membranes dry - Routine Neck Exam Present: supple Hem/Onc Consult Result - Labs CBC & Chem 7: 12/08/22 07:01 12/11/22 08:13 Labs: Short CBC 12/08/22 Range/Units 07:01 WBC 3.9 L (4.8-10.8) X10*3/uL Hgb 10.8 L (12.0-16.0) g/dl Hct 30.8 L (37.0-47.0) % Plt Count 113 L (160-400) X10*3/uL BMP 12/08/22 12/08/22 12/08/22 07:01 07:01 07:01 Sodium 136 Cancelled Potassium 2.4 L* D Cancelled Chloride 95 L Carbon Dioxide BUN Creatinine Calcium 12/08/22 12/08/22 12/08/22 07:01 07:01 07:01 Sodium Potassium Chloride Cancelled Carbon Dioxide 28 Cancelled BUN 4 L Cancelled Creatinine 0.49 L Calcium 12/08/22 12/08/22 12/08/22 07:01 07:01 15:32 Sodium 133 L Potassium 3.1 L D Chloride 93 L Carbon Dioxide 27 BUN 3 L Creatinine Cancelled 0.54 Calcium 9.4 D Cancelled 9.2 Assessment and Plan Patient Active problem list reviewed?: Yes (1) Pancytopenia Status: Acute Assessment and plan: This is an unfortunate 42-year-old lady with alcohol abuse. PMH of ETOH abuse with no hx of withdrawal seizures, SENA, diarrhea, celiac, IBS, GERD, lyte abnormality here with ETOH withdrawal and fall . CT of head/cspine, R shoulder and chest xra. She had 17 beat run of wide complex tachycardia immediate magnesium was given, 2L of IVF, 2mg IV ativan and 12m/kg phenobarb was ordered, IV thiamine. pending a trauma finding will admit for ETOH withdrawal. She presented after a fall, while she was drunk. She was noted to have pancytopenia with significant thrombocytopenia. Platelet count was 6. She did receive platelet transfusion. Platelets are up to 113. DIFFERENTIAL DIAGNOSIS: 1. ACUTE SUPPRESSIVE EFFECT OF ALCOHOL: Likely. 2. HYPERSPLENISM: Related to liver disease from alcohol versus hepatitis, versus HIV. 3. B12/folate deficiency: More likely to be folate deficiency due to alcohol. 4. ITP: Is in the differential. 5. UNDERLYING MYELO INFILTRATIVE DISORDER: Less likely in this young woman with a reasonable explanation of the picture. PLAN: Will proceed with further evaluation. B12 levels: 508. Folate: 4.1. (Being replaced.) Check hepatitis profile and HIV: Negative. She has had a chronic thrombocytopenia. Good news is the platelet count coming up, back towards her baseline. Will follow the trend. Thanks for the consult, Will follow along with you. - Time Spent With Patient Time Spent with Patient (in minutes): 30
[2022-12-08 19:43] LABS: Rheumatoid Factor < 13.0 IU/mL (<15.0)
[2022-12-08 19:53] VITALS: BP 119/80; PULSE 125; RESP 18; TEMP 36.3; O2SAT 97
[2022-12-08] MEDS: hydrOXYzine HCL 25 MG TABLET PO (20:39)
[2022-12-08 23:38] VITALS: BP 107/75; PULSE 104; RESP 19; TEMP 36.9; O2SAT 98
[2022-12-09 03:57] VITALS: BP 109/78; PULSE 88; RESP 19; TEMP 36.7; O2SAT 95
[2022-12-09 07:31] VITALS: BP 119/72; PULSE 87; RESP 16; TEMP 36.4; O2SAT 98
[2022-12-09 07:37] LABS: HBS Num1 5.05 mIU/mL (0-7.99); HBc Num1 0.23 S/CO (0.00-0.79); HBsAGNum1 0.33 S/CO (0.00-0.99); HIV AB/AG Nonreactive (Nonreactive); HIV Num 1 0.07 S/CO (0.00-0.99); Hepatitis B Core Antibody Nonreactive (Nonreactive); Hepatitis B Surface Antigen Negative (Negative); ~HepC Num1 0.56 S/CO (0.00-0.79); ~Hepatitis B Surface Antibody NONREACTIVE (Nonreactive); ~Hepatitis C Antibody Nonreactive (Nonreactive)
[2022-12-09] MEDS: Potassium Chloride Packet 20 MEQ PACKET 40 MEQ PO ×2 (07:53→19:55)
[2022-12-09] MEDS: PHENobarbitaL 30 MG TABLET PO ×2 (07:54→19:57)
[2022-12-09] MEDS: Thiamine HCL 100 MG TABLET PO (07:54)
[2022-12-09] MEDS: Multivitamin TABLET 1 TAB PO (07:54)
[2022-12-09] MEDS: oxyCODONE HCl Immed Release 5 MG TABLET PO ×4 (07:54→21:37)
[2022-12-09] MEDS: 0.9 % Sodium Chloride Flush 3 ML SYRINGE IVFLUSH (07:55)
[2022-12-09 10:34] LABS: Anion Gap 15 (12-20); Blood Urea Nitrogen 5 mg/dL (9-16); Calcium 9.6 mg/dL (8.4-10.2); Carbon Dioxide 24 mmol/L (22-29); Chloride 99 mmol/L (96-108); Creatinine Clr Calc Pharmacy 114.2; Estimated Glomerular Filt Rate > 60; Glucose Random 156 mg/dL (60-115); Sodium 134 mmol/L (135-145)
[2022-12-09 11:10] VITALS: BP 111/69; PULSE 108; RESP 20; TEMP 36.7; O2SAT 96
--- NOTE | 2022-12-09 11:19 | HO.PM.IMPN ---
Subjective Subjective Date of Service: 12/09/22 Interval History: shoulder pain, tachycardia, Physical Exam Vital Signs: Vital Signs: Last Vital Signs Temp 98.1 F 12/09/22 11:10 Pulse 108 H 12/09/22 11:10 Resp 20 12/09/22 11:10 BP 111/69 12/09/22 11:10 Pulse Ox 96 12/09/22 11:10 O2 Del Method Room Air 12/09/22 11:10 FiO2 95 12/09/22 03:57 BMI result Body Mass Index 20.5 Const: Other: General: AO X 3, no acute distress Resp: CTA bilateral CVS: S1,S2,RRR GI: +BS, NT, no distention Skin: No rash Neuro: motor grossly intact MSK: right shoulder slign Psych: appropriate affect Objective Data Active Medications Acetaminophen (Acetaminophen 325 Mg Tablet) 650 mg PO Q6H PRN PRN Reason: Pain, Mild (Pain Scale 1-3) Last Admin: 12/08/22 00:18 Dose: 650 mg Documented By: CATALINO Clonidine HCl (Clonidine Hcl 0.1 Mg Tablet) 0.1 mg PO TID PRN; Protocol PRN Reason: Anxiety Hydroxyzine HCl (Hydroxyzine Hcl 25 Mg Tablet) 25 mg PO BEDTIME GHASSAN Last Admin: 12/08/22 20:39 Dose: 25 mg Documented By: CATALINO Melatonin (Melatonin 3 Mg Tablet) 6 mg PO BEDTIME PRN PRN Reason: Insomnia Multivitamins/Vitamin C (Multivitamin Tablet) 1 tab PO DAILY [facility] Last Admin: 12/09/22 07:54 Dose: 1 tab Documented By: CANDY Naproxen (Naproxen 500 Mg Tablet) 500 mg PO BID PRN PRN Reason: Pain, Mild (Pain Scale 1-3) Non-Formulary Medication (Hyoscyamine Sulfate) 0.125 mg PO QID [facility] Ondansetron HCl (Ondansetron Hcl 4 Mg/2 Ml Vial) 4 mg IVPUSH Q8H PRN PRN Reason: Nausea and Vomiting Last Admin: 12/08/22 17:09 Dose: 4 mg Documented By: CANDY Oxycodone HCl (Oxycodone Hcl Immed Release 5 Mg Tablet) 5 mg PO Q4H PRN PRN Reason: moderate pain Last Admin: 12/09/22 07:54 Dose: 5 mg Documented By: CANDY Pharmacy Consult (Consult Rx Etoh Phenob Im/Po) 1 each MISCELLANE ONCE PRN; Protocol PRN Reason: Consult order Phenobarbital (Phenobarbital 30 Mg Tablet) 30 mg PO BID [facility]; Protocol Stop: 12/10/22 21:01 Last Admin: 12/09/22 07:54 Dose: 30 mg Documented By: CANDY Phenobarbital (Phenobarbital 30 Mg Tablet) 30 mg PO DAILY [facility]; Protocol Stop: 12/12/22 09:01 Potassium Chloride (Potassium Chloride Packet 20 Meq Packet) 40 meq PO Q12H [facility] Last Admin: 12/09/22 07:53 Dose: 40 meq Documented By: CANDY Sodium Chloride (0.9 % Sodium Chloride Flush 3 Ml Syringe) 3 ml IVFLUSH QSHIFT [facility] Last Admin: 12/09/22 07:55 Dose: 3 ml Documented By: CANDY Thiamine HCl (Thiamine Hcl 100 Mg Tablet) 100 mg PO DAILY [facility] Last Admin: 12/09/22 07:54 Dose: 100 mg Documented By: CANDY Labs 12/08/22 07:01 12/09/22 09:51 Labs: Laboratory Results - last 24 hr 12/08/22 12/08/22 12/09/22 15:32 19:12 09:51 Anion Gap 16 15 Estim Creat Clear Calc 109.9 114.2 Estimated GFR > 60 > 60 Random Glucose 155 H 156 H Calcium 9.2 9.6 Rheumatoid Factor < 13.0 Hep Bs Antigen Negative Hep Bs Antibody NONREACTIVE Hep B Core Total Ab Nonreactive Hepatitis C Ab (EIA) Nonreactive HIV 1&2 Ab/P24 Ag 4thGn Nonreactive Assessment and Plan (1) Fracture of proximal end of right humerus: Status: Acute Plan 42F PMH etoh dependence, mood disorder presented with fall, right shoulder pain, found to have severe thrombocytopenia and etoh withdrawal Alcohol dependence with withdrawal Phenobarbital, CIWA..mild anxiety Severe thrombocytopenia, initial 6 and after transfusion now 113 Likely due to alcohol, follow-up CBC, hematology eval Mechanical fall complicated by proximal humeral fracture Sling for comfort, orthopedics appreciated- can follow up with Orthopedics as outpatient, OT eval Tachycardia--likely related to pain, withdrawal anxiety. In past has been on propranolol 10 mg daily and also should, restart propranolol and continue PRN clonidine HypOkalema d/t alcoholism--IV and PO replacement, resolved. DVT prophylaxis-mechanical due to severe thrombocytopenia Full code Reason for continued hospitalization: Severe thrombocytopenia, active withdrawal Time Spent With Patient Time: Total time managing care of this patient today ____ minutes. Quality Stroke Does the patient have a stroke diagnosis?: No VTE Prior VTE?: No VTE Risk Level:: Medical - moderate - high VTE Device Contraindication: N/A - Device Ordered VTE Drug Contraindication: Treatment Not Indicated
--- NOTE | 2022-12-09 11:23 | MHC.CM.PN ---
PER PHYSICIAN ROUNDS, PATIENT STILL BEING MONITORED TODAY FOR S/S OF WITHDRAWALS AND LIKELY DC HOME Monday12/10/22
[2022-12-09] MEDS: ondansetron HCL 4 MG/2 ML VIAL IVPUSH (12:19)
[2022-12-09] MEDS: Propranolol HCL 10 MG TABLET PO ×2 (12:19→19:57)
--- NOTE | 2022-12-09 12:46 | P.EN_ITS ---
Event Note Date of Service: 12/09/22 Event Note: Addiction consult placed for patient with AUD Seen by raw shellfish preparer Engaged with recovery supports in the community Declines additional resources no follow up indicated at this time Time Spent With Patient Time: Total time managing care of this patient today ____ minutes.
[2022-12-09 15:47] VITALS: BP 97/65; PULSE 97; RESP 18; TEMP 36.2; O2SAT 98
[2022-12-09 19:37] VITALS: BP 109/69; PULSE 120; RESP 18; TEMP 36.7; O2SAT 96
[2022-12-10] VITALS (7 sets, daily range): BP systolic 96–116; BP diastolic 56–73; PULSE 94–114; RESP 18–20; TEMP 36.4–37.1; O2SAT 96–98
[2022-12-10] MEDS: oxyCODONE HCl Immed Release 5 MG TABLET PO ×5 (01:43→20:14)
[2022-12-10] MEDS: 0.9 % Sodium Chloride Flush 3 ML SYRINGE IVFLUSH ×2 (01:48→08:24)
--- NOTE | 2022-12-10 08:16 | P.PNIM_ITS ---
Subjective Subjective Date of Service: 12/11/22 Interval History: Still with pain in the righ shoulder but overall getting better Physical Exam 2 Vital Signs: Vital Signs: Last Vital Signs Temp 97.7 F 12/10/22 08:00 Pulse 98 12/10/22 08:00 Resp 20 12/10/22 08:00 BP 100/67 12/10/22 08:00 Pulse Ox 96 12/10/22 08:00 O2 Del Method Room Air 12/10/22 08:00 O2 Flow Rate 98 12/10/22 00:00 FiO2 95 12/09/22 03:57 BMI result Body Mass Index 20.5 Const: Other: General: AO X 3, no acute distress Resp: CTA bilateral CVS: S1,S2,RRR GI: +BS, NT, no distention Skin: No rash Neuro: motor grossly intact MSK: right shoulder sling Psych: appropriate affect Objective Data Active Medications Acetaminophen (Acetaminophen 325 Mg Tablet) 650 mg PO Q6H PRN PRN Reason: Pain, Mild (Pain Scale 1-3) Last Admin: 12/08/22 00:18 Dose: 650 mg Documented By: CATALINO Clonidine HCl (Clonidine Hcl 0.1 Mg Tablet) 0.1 mg PO TID PRN; Protocol PRN Reason: Anxiety Hydroxyzine HCl (Hydroxyzine Hcl 25 Mg Tablet) 25 mg PO BEDTIME [facility] Last Admin: 12/10/22 01:42 Dose: Not Given Documented By: SENA Non-Admin Reason: Patient Refused Melatonin (Melatonin 3 Mg Tablet) 6 mg PO BEDTIME PRN PRN Reason: Insomnia Multivitamins/Vitamin C (Multivitamin Tablet) 1 tab PO DAILY [facility] Last Admin: 12/09/22 07:54 Dose: 1 tab Documented By: CANDY Naproxen (Naproxen 500 Mg Tablet) 500 mg PO BID PRN PRN Reason: Pain, Mild (Pain Scale 1-3) Non-Formulary Medication (Hyoscyamine Sulfate) 0.125 mg PO QID [facility] Ondansetron HCl (Ondansetron Hcl 4 Mg/2 Ml Vial) 4 mg IVPUSH Q8H PRN PRN Reason: Nausea and Vomiting Last Admin: 12/09/22 12:19 Dose: 4 mg Documented By: CANDY Oxycodone HCl (Oxycodone Hcl Immed Release 5 Mg Tablet) 5 mg PO Q4H PRN PRN Reason: moderate pain Last Admin: 12/10/22 01:43 Dose: 5 mg Documented By: SENA Pharmacy Consult (Consult Rx Etoh Phenob Im/Po) 1 each MISCELLANE ONCE PRN; Protocol PRN Reason: Consult order Phenobarbital (Phenobarbital 30 Mg Tablet) 30 mg PO BID [facility]; Protocol Stop: 12/10/22 21:01 Last Admin: 12/09/22 19:57 Dose: 30 mg Documented By: SENA Phenobarbital (Phenobarbital 30 Mg Tablet) 30 mg PO DAILY [facility]; Protocol Stop: 12/12/22 09:01 Potassium Chloride (Potassium Chloride Packet 20 Meq Packet) 40 meq PO Q12H [facility] Last Admin: 12/09/22 19:55 Dose: 40 meq Documented By: SENA Propranolol HCl (Propranolol Hcl 10 Mg Tablet) 10 mg PO BID [facility]; Protocol Last Admin: 12/09/22 19:57 Dose: 10 mg Documented By: SENA Sodium Chloride (0.9 % Sodium Chloride Flush 3 Ml Syringe) 3 ml IVFLUSH QSHIFT [facility] Last Admin: 12/10/22 01:48 Dose: 3 ml Documented By: SENA Thiamine HCl (Thiamine Hcl 100 Mg Tablet) 100 mg PO DAILY [facility] Last Admin: 12/09/22 07:54 Dose: 100 mg Documented By: FOSTEKR Labs 12/08/22 07:01 12/11/22 08:13 Labs: Laboratory Results - last 24 hr 12/09/22 09:51 Anion Gap 15 Estim Creat Clear Calc 114.2 Estimated GFR > 60 Random Glucose 156 H Calcium 9.6 Assessment and Plan (1) Fracture of proximal end of right humerus: Status: Acute Plan 42F PMH etoh dependence, mood disorder presented with fall, right shoulder pain, found to have severe thrombocytopenia and etoh withdrawal Alcohol dependence with withdrawal Phenobarbital, CIWA..calm Severe thrombocytopenia, initial 6 and after transfusion now 113 Likely due to alcohol, follow-up CBC, hematology eval Mechanical fall complicated by proximal humeral fracture Sling for comfort, orthopedics appreciated- can follow up with Orthopedics as outpatient, PT/OT recommending margarita, no bed until at least tomorrow Tachycardia--likely related to pain, withdrawal anxiety. In past has been on propranolol 10 mg daily and also should, continue propranolol and continue PRN clonidine HypOkalema d/t alcoholism--IV and PO replacement, resolved. DVT prophylaxis-mechanical due to severe thrombocytopenia OT is recommending STR Full code Reason for continued hospitalization: Severe thrombocytopenia, active withdrawal Time Spent With Patient Time: Total time managing care of this patient today ____ minutes. Quality Stroke Does the patient have a stroke diagnosis?: No VTE Prior VTE?: No VTE Risk Level:: Medical - moderate - high VTE Device Contraindication: N/A - Device Ordered VTE Drug Contraindication: Treatment Not Indicated
[2022-12-10] MEDS: Multivitamin TABLET 1 TAB PO (08:19)
[2022-12-10] MEDS: Propranolol HCL 10 MG TABLET PO ×2 (08:19→20:08)
[2022-12-10] MEDS: PHENobarbitaL 30 MG TABLET PO ×2 (08:20→20:09)
[2022-12-10] MEDS: Potassium Chloride Packet 20 MEQ PACKET 40 MEQ PO ×2 (08:20→20:09)
[2022-12-10] MEDS: Thiamine HCL 100 MG TABLET PO (08:20)
--- NOTE | 2022-12-10 11:04 | MHC.CM.PN ---
Addendum entered by Minerva Renzo 12/10/22 14:14: [facility] reviewing and state their MD will review the case on Monday, and then can go for auth. Hospitalist updated. Original Note: Per MD pt is medically cleared for D/C. OT recommends acute rehab. This CM met with pt and she is considering going to rehab now due to continued difficulty in caring for herself. Pt agreeable to acute rehab referral [facility], both [facility] in [facility]. CM will continue to follow.
[2022-12-10] MEDS: NaPROXEN 500 MG TABLET PO (16:36)
[2022-12-10] MEDS: hydrOXYzine HCL 25 MG TABLET PO (20:09)
[2022-12-10] MEDS: Acetaminophen 325 MG TABLET 650 MG PO (20:14)
[2022-12-11] VITALS (7 sets, daily range): BP systolic 99–120; BP diastolic 55–77; PULSE 71–120; RESP 16–20; TEMP 36.6–36.8; O2SAT 96–99
[2022-12-11] MEDS: oxyCODONE HCl Immed Release 5 MG TABLET PO ×4 (01:21→21:57)
[2022-12-11] MEDS: 0.9 % Sodium Chloride Flush 3 ML SYRINGE IVFLUSH ×4 (01:25→20:07)
[2022-12-11] MEDS: NaPROXEN 500 MG TABLET PO (04:54)
[2022-12-11 08:38] LABS: Anion Gap 15 (12-20); Blood Urea Nitrogen 7 mg/dL (9-16); Calcium 9.5 mg/dL (8.4-10.2); Carbon Dioxide 24 mmol/L (22-29); Chloride 103 mmol/L (96-108); Estimated Glomerular Filt Rate > 60; Glucose Random 96 mg/dL (60-115); Magnesium 1.8 mg/dL (1.6-2.6); Potassium 4.6 mmol/L (3.3-5.1); Sodium 137 mmol/L (135-145)
[2022-12-11] MEDS: Potassium Chloride Packet 20 MEQ PACKET 40 MEQ PO ×2 (10:54→21:57)
[2022-12-11] MEDS: Propranolol HCL 10 MG TABLET PO ×2 (10:55→21:56)
[2022-12-11] MEDS: PHENobarbitaL 30 MG TABLET PO (10:55)
[2022-12-11] MEDS: Thiamine HCL 100 MG TABLET PO (10:55)
[2022-12-11] MEDS: Multivitamin TABLET 1 TAB PO (10:56)
[2022-12-11] MEDS: hydrOXYzine HCL 25 MG TABLET PO (21:57)
[2022-12-12] MEDS: oxyCODONE HCl Immed Release 5 MG TABLET PO ×4 (03:46→20:05)
[2022-12-12 03:49] VITALS: BP 110/73; PULSE 84; RESP 18; TEMP 36.5; O2SAT 100
[2022-12-12 07:49] VITALS: BP 92/60; PULSE 75; RESP 18; TEMP 37.2; O2SAT 96
[2022-12-12] MEDS: Potassium Chloride Packet 20 MEQ PACKET 40 MEQ PO ×2 (07:52→20:03)
[2022-12-12] MEDS: 0.9 % Sodium Chloride Flush 3 ML SYRINGE IVFLUSH ×2 (07:52→20:04)
[2022-12-12] MEDS: Propranolol HCL 10 MG TABLET PO ×2 (07:53→20:03)
[2022-12-12] MEDS: Multivitamin TABLET 1 TAB PO (07:53)
[2022-12-12] MEDS: Thiamine HCL 100 MG TABLET PO (07:53)
[2022-12-12] MEDS: PHENobarbitaL 30 MG TABLET PO (07:53)
--- NOTE | 2022-12-12 09:01 | HO.PM.IMPN ---
Subjective Subjective Date of Service: 12/12/22 Interval History: Still with pain in the righ shoulder but overall getting better Physical Exam Vital Signs: Vital Signs: Last Vital Signs Temp 98.9 F 12/12/22 07:49 Pulse 75 12/12/22 07:49 Resp 18 12/12/22 07:49 BP 92/60 12/12/22 07:49 Pulse Ox 96 12/12/22 07:49 O2 Del Method Room Air 12/12/22 07:49 O2 Flow Rate 98 12/10/22 00:00 FiO2 95 12/09/22 03:57 BMI result Body Mass Index 20.5 Const: Other: General: AO X 3, no acute distress Resp: CTA bilateral CVS: S1,S2,RRR GI: +BS, NT, no distention Skin: No rash Neuro: motor grossly intact MSK: right shoulder sling Psych: appropriate affect Objective Data Active Medications Acetaminophen (Acetaminophen 325 Mg Tablet) 650 mg PO Q6H PRN PRN Reason: Pain, Mild (Pain Scale 1-3) Last Admin: 12/10/22 20:14 Dose: 650 mg Documented By: BRIGID Clonidine HCl (Clonidine Hcl 0.1 Mg Tablet) 0.1 mg PO TID PRN; Protocol PRN Reason: Anxiety Hydroxyzine HCl (Hydroxyzine Hcl 25 Mg Tablet) 25 mg PO BEDTIME [facility] Last Admin: 12/11/22 21:57 Dose: 25 mg Documented By: MINISTERIO Melatonin (Melatonin 3 Mg Tablet) 6 mg PO BEDTIME PRN PRN Reason: Insomnia Multivitamins/Vitamin C (Multivitamin Tablet) 1 tab PO DAILY [facility] Last Admin: 12/12/22 07:53 Dose: 1 tab Documented By: HAZEL Naproxen (Naproxen 500 Mg Tablet) 500 mg PO BID PRN PRN Reason: Pain, Mild (Pain Scale 1-3) Last Admin: 12/11/22 04:54 Dose: 500 mg Documented By: YUDITH Non-Formulary Medication (Hyoscyamine Sulfate) 0.125 mg PO QID [facility] Ondansetron HCl (Ondansetron Hcl 4 Mg/2 Ml Vial) 4 mg IVPUSH Q8H PRN PRN Reason: Nausea and Vomiting Last Admin: 12/09/22 12:19 Dose: 4 mg Documented By: CANDY Oxycodone HCl (Oxycodone Hcl Immed Release 5 Mg Tablet) 5 mg PO Q4H PRN PRN Reason: moderate pain Last Admin: 12/12/22 07:52 Dose: 5 mg Documented By: HAZEL Pharmacy Consult (Consult Rx Etoh Phenob Im/Po) 1 each MISCELLANE ONCE PRN; Protocol PRN Reason: Consult order Phenobarbital (Phenobarbital 30 Mg Tablet) 30 mg PO DAILY [facility]; Protocol Stop: 12/12/22 09:01 Last Admin: 12/12/22 07:53 Dose: 30 mg Documented By: HAZEL Potassium Chloride (Potassium Chloride Packet 20 Meq Packet) 40 meq PO Q12H [facility] Last Admin: 12/12/22 07:52 Dose: 40 meq Documented By: HAZEL Propranolol HCl (Propranolol Hcl 10 Mg Tablet) 10 mg PO BID [facility]; Protocol Last Admin: 12/12/22 07:53 Dose: 10 mg Documented By: HAZEL Sodium Chloride (0.9 % Sodium Chloride Flush 3 Ml Syringe) 3 ml IVFLUSH QSHIFT [facility] Last Admin: 12/12/22 07:52 Dose: 3 ml Documented By: HAZEL Thiamine HCl (Thiamine Hcl 100 Mg Tablet) 100 mg PO DAILY [facility] Last Admin: 12/12/22 07:53 Dose: 100 mg Documented By: HAZEL Labs 12/08/22 07:01 12/11/22 08:13 Assessment and Plan (1) Fracture of proximal end of right humerus: Status: Acute Plan 42F PMH etoh dependence, mood disorder presented with fall, right shoulder pain, found to have severe thrombocytopenia and etoh withdrawal Alcohol dependence with withdrawal Phenobarbital, CIWA..calm Severe thrombocytopenia, initial 6 and after transfusion now 113 Likely due to alcohol, follow-up CBC, hematology eval Mechanical fall complicated by right proximal humeral fracture, she is right hand dominant Sling for comfort, orthopedics appreciated- can follow up with Orthopedics as outpatient, PT/OT recommending rehab, no bed until at least tomorrow Tachycardia--likely related to pain, withdrawal anxiety. In past has been on propranolol 10 mg daily and also should, continue propranolol and continue PRN clonidine HypOkalema d/t alcoholism--IV and PO replacement, resolved. DVT prophylaxis-mechanical due to severe thrombocytopenia OT is recommending STR Full code Reason for continued hospitalization: Severe thrombocytopenia, active withdrawal Time Spent With Patient Time: Total time managing care of this patient today ____ minutes. Quality Stroke Does the patient have a stroke diagnosis?: No VTE Prior VTE?: No VTE Risk Level:: Medical - moderate - high VTE Device Contraindication: N/A - Device Ordered VTE Drug Contraindication: Treatment Not Indicated
[2022-12-12 11:41] VITALS: BP 110/60; PULSE 98; RESP 18; TEMP 36.4; O2SAT 97
--- NOTE | 2022-12-12 12:13 | MHC.CM.PN ---
Pt remains medically cleared for D/C. This CM received a message from [facility], and their MD has denied acceptance of pt to their program. Hospitalist updated and this CM met with pt to discuss, will attempt to find a STR bed. Pt would like to stay near the [facility] area, referrals placed. This CM will continue to follow.
[2022-12-12] MEDS: NaPROXEN 500 MG TABLET PO (12:35)
[2022-12-12 14:08] LABS: Anti Nuclear Antibody Screen NEGATIVE (NEGATIVE)
--- NOTE | 2022-12-12 15:08 | MHC.CM.PN ---
Addendum entered by Minerva Muller 12/12/22 16:02: Per [facility], they will need an updated PT note in order to go for auth. PT updated. Hospitalist updated. Original Note: Pt was offered a STR bed at [facility]. Pt accepted and this CM requested they go for auth. Hospitalist updated.
[2022-12-12 15:19] VITALS: BP 108/65; PULSE 114; RESP 20; TEMP 36.7; O2SAT 97
[2022-12-12 19:05] VITALS: BP 108/66; PULSE 109; RESP 20; TEMP 36.8; O2SAT 98
[2022-12-12] MEDS: Melatonin 3 MG TABLET 6 MG PO (20:02)
[2022-12-12] MEDS: Acetaminophen 325 MG TABLET 650 MG PO (20:02)
[2022-12-12] MEDS: hydrOXYzine HCL 25 MG TABLET PO (20:03)
[2022-12-12 23:43] VITALS: BP 94/59; PULSE 72; RESP 19; TEMP 36.5; O2SAT 94
[2022-12-13] MEDS: NaPROXEN 500 MG TABLET PO ×2 (00:55→12:35)
[2022-12-13 03:26] VITALS: PULSE 71; RESP 19; TEMP 36.7
[2022-12-13 04:00] VITALS: BP 100/60
--- NOTE | 2022-12-13 07:27 | PM.DS ---
DS: Providers Provider Date of Service: 12/13/22 Date of admission: 12/07/22 05:29 Primary care physician: Ollie Pulliam PA-C Consults: 12/07/22 05:28 Addiction Medicine Routine Consulting Provider: Esteban Covering Reason for consultation: Alcohol use disorder 12/07/22 05:37 Consult to Hematology / Oncology Routine Consulting Provider: Brent Rosa Reason for consultation: Thrombocytopenia 12/07/22 05:40 Consult to Orthopedics Routine Consulting Provider: [facility] Sur[facility] Reason for consultation: Nondisplaced shoulder fracture DS: Diagnosis Discharge Diagnosis (1) Fracture of proximal end of right humerus: Status: Acute DS: Summary Hospital Course Hospital Course: Admission HPI Chief Complaint: Fall This is a 42-year-old female with pertinent history of alcohol use disorder with prior admissions for alcohol withdrawal, mood disorder who presents to the emergency department after a fall. Patient states she has been drinking a lot for the last 3 days. Was last drink was 18:00 prior to presentation. She patient states she was drunk as she was going to the bathroom and she fell. She could not get up after the fall. No loss of consciousness prior to the fall. No rhythmic jerking movement of extremities or tongue bite prior to the fall. No history of alcohol withdrawal seizures or DTs. Patient states she is experiencing symptoms of withdrawal including tremors, anxiety, sweating and nausea. No fever, chills, chest discomfort, palpitations, shortness of breath, abdominal pain, changes in urinary or bowel habits. She had a 17 beat run of wide complex tachycardia prior to arrival. In the emergency department, patient was initiated on phenobarb\ Hospital course: This patient known to have a history of alcoholism and multiple prior hospitalizations for alcohol-related problems presented with a fall following several days of heavy drinking. The fall resulted in an injury to her right shoulder, which was confirmed through an X-ray revealing a fracture in the right proximal humerus. The patient exhibited signs of alcohol withdrawal and was promptly initiated on a phenobarbital treatment protocol. Furthermore, her lab results revealed hyponatremia, hypokalemia, hypomagnesemia, and a severely low platelet count of 6. Orthopedic specialists assessed the proximal humerus fracture and recommended a conservative approach involving the use of a sling for support and effective pain management. The patient, who is right-hand dominant and facing challenges in performing activities of daily living, received recommendations from physical therapy and occupational therapy for short-term rehabilitation, to which she agreed. The patient's alcohol withdrawal symptoms have subsided, and the importance of abstaining from alcohol has been thoroughly discussed with her. Additionally, her electrolyte imbalances (hypokalemia, hypomagnesemia, hyponatremia) have all been successfully corrected. The initial severe thrombocytopenia, with a platelet count of 6, was addressed through a platelet transfusion, resulting in a subsequent platelet count of 113. An episode of tachycardia was attributed to the temporary discontinuation of clonidine and propranolol medications, both of which have now been resumed, leading to the resolution of the tachycardia episode. To short term rehab for less than 30 days Final diagnosis: Right humerus fracture Alcohol withdrawal Hyponatremia Hypokalemia Thrombocytopenia Tachycardia Time Spent with Patient Time attestation: Total time managing care of this patient today ____ minutes. Discharge coordination time: Greater than 30 minutes Quality: Safe Use of Opioids Does Pt have an Active Cancer Diagnosis on the Problem List?: No Quality: Stroke Does the patient have a stroke diagnosis?: No Physical Exam Vital Signs: Vital Signs: Last Vital Signs Temp 98.0 F 12/13/22 03:26 Pulse 71 12/13/22 03:26 Resp 19 12/13/22 03:26 BP 100/60 12/13/22 04:00 Pulse Ox 94 12/12/22 23:43 O2 Del Method Room Air 12/13/22 03:26 O2 Flow Rate 98 12/10/22 00:00 FiO2 98 12/13/22 03:26 BMI result Body Mass Index 20.5 Const: Other: General: AO X 3, no acute distress Resp: CTA bilateral CVS: S1,S2,RRR GI: +BS, NT, no distention Skin: No rash Neuro: motor grossly intact MSK: right shoulder sling Psych: appropriate affect DS: Data Data Completed and Pending Completed studies during hospitalization [Text1]: Procedures Detoxification Services for Substance Abuse Treatment (10/26/22) Labs on day of discharge: Laboratory Results - last 24 hr 12/08/22 19:12 BRIANDA Screen NEGATIVE Discharge Plan Discharge Anticipated Discharge Date/Time: 12/13/22 12:18 Patient Disposition: er SNF Discharge Diagnosis: Righ humerus fracture, alcohol withdrawal, Referrals: [facility] [Outside] - 1 Day (SHORT TERM REHAB) Ollie Pulliam PA-C [Primary Care Provider] - 1 Week Discharge Medications: New propranolol 10 mg Tablet 10 mg PO BID Qty: 60 0RF Protocol: Hold for SBP/HR < HOLD for SBP < : 90 HOLD for HR < : 60 oxycodone 5 mg Tablet 5 mg PO Q6H PRN (Reason: Pain, Severe (Pain Scale 7-10)) Qty: 14 0RF Rx Instructions: Partial Fill upon patient request. Continued hyoscyamine sulfate 0.125 mg tablet,disintegrating 0.125 mg PO QID 15 Days Qty: 60 0RF tramadol 50 mg tablet 50 mg PO DAILY PRN (Reason: pain) Qty: 7 0RF multivitamin Tablet 1 tab PO DAILY meloxicam 15 mg tablet 15 mg PO DAILY PRN (Reason: pain) 15 Days Qty: 15 0RF clonidine HCl 0.1 mg tablet 0.1 mg PO TID PRN (Reason: Anxiety) 30 Days Qty: 90 1RF hydroxyzine HCl 25 mg tablet 25 mg PO BEDTIME 90 Days Qty: 90 1RF Discontinued diclofenac sodium [Arthritis Pain (diclofenac)] 1 % gel 2 g topical QID PRN (Reason: pain) Qty: 100 1RF Discharge Orders: Discharge Order (Routine); Ordered 12/13/22 Ordered By: James Simon Diet: Advance to usual diet Activity on Discharge: As tolerated Stand Alone Forms: Patient Portal Discharge page Care Plan Goals: Recovery from right shoulder injury Health Concerns: right humerus fracture alcohol use desorder Plan of Treatment: To Short term rehab for less than 30 day Sling to right arm, follow up with Orthopedic surgery Avoid alcohol Assessment: See above Discharge Date/Time: 12/13/22 15:16
[2022-12-13 07:49] VITALS: BP 98/68; PULSE 74; RESP 20; TEMP 36.1; O2SAT 99
[2022-12-13] MEDS: Acetaminophen 325 MG TABLET 650 MG PO ×2 (08:21→14:47)
[2022-12-13] MEDS: Multivitamin TABLET 1 TAB PO (08:21)
[2022-12-13] MEDS: Thiamine HCL 100 MG TABLET PO (08:21)
[2022-12-13] MEDS: 0.9 % Sodium Chloride Flush 3 ML SYRINGE IVFLUSH (08:23)
[2022-12-13 08:33] LABS: Hematocrit 34.3 % (37.0-47.0); Hemoglobin 10.9 g/dl (12.0-16.0); Mean Corpuscular HGB Conc 31.8 g/dl (31.0-35.0); Mean Corpuscular Hemoglobin 29.7 pg (27.0-33.0); Mean Corpuscular Volume 93.5 fL (80.0-98.0); Mean Platelet Volume 10.1 fL (9.4-12.3); Platelet Count 288 X10*3/uL (160-400); Red Blood Count 3.67 X10*6/uL (4.20-5.50); Red Cell Distribution Width 15.8 % (11.0-16.0); White Blood Count 5.5 X10*3/uL (4.8-10.8)
[2022-12-13 09:07] VITALS: BP 98/68; PULSE 74; O2SAT 99
[2022-12-13 09:31] LABS: Anion Gap 15 (12-20); Blood Urea Nitrogen 9 mg/dL (9-16); Calcium 9.8 mg/dL (8.4-10.2); Carbon Dioxide 25 mmol/L (22-29); Chloride 102 mmol/L (96-108); Creatinine Clr Calc Pharmacy 109.9; Estimated Glomerular Filt Rate > 60; Glucose Random 103 mg/dL (60-115); Magnesium 1.9 mg/dL (1.6-2.6); Potassium 4.8 mmol/L (3.3-5.1); Sodium 137 mmol/L (135-145)
[2022-12-13 09:40] VITALS: BP 111/67
--- NOTE | 2022-12-13 09:40 | MHC.CM.PN ---
EMR REVIEWED, UPDTED PT AND MD NOTES [facility], CM RECEIVED MESSAGE BACK THEY ARE GOING FOR AUTH, PT TO TRANSFER ONCE AUTH RECEIVED.
[2022-12-13] MEDS: oxyCODONE HCl Immed Release 5 MG TABLET PO ×2 (09:48→14:45)
[2022-12-13 11:42] VITALS: BP 124/73; PULSE 88; RESP 20; TEMP 36.4; O2SAT 99
--- NOTE | 2022-12-13 12:32 | MHC.CM.PN ---
PT MEDICALLY CLEARED FOR DISCHARGE TO [facility] TRNASPORT AT 3PM, NSG AND HOSPITALIST AWARE.
[2022-12-13] MEDS: cloNIDine HCL 0.1 MG TABLET PO (12:37)
== END 2022-12-13 15:16 | disposition skilled nursing facility (03) | DRG 342 ==
LOC: HO.ED 04:35 → HO.EDOVER 05:31 → HO.IMC 07:17
PROVIDERS: Internal Medicine; Internal Medicine Medical Oncology; Admitting Provider Student in an Organized Health Care Education/Training Program; Emergency Provider Emergency Medicine; PCP Physician Assistant; Visit Provider Internal Medicine
DX: S42.254A Nondisplaced fracture of greater tuberosity of right humerus, initial encounter for closed fracture (principal); D61.818 Other pancytopenia; F10.229 Alcohol dependence with intoxication, unspecified; E87.1 Hypo-osmolality and hyponatremia; E87.6 Hypokalemia; F10.239 Alcohol dependence with withdrawal, unspecified; W19.XXXA Unspecified fall, initial encounter; Y90.6 Blood alcohol level of 120-199 mg/100 ml; Z20.822 Contact with and (suspected) exposure to COVID-19; Z87.891 Personal history of nicotine dependence; Z79.899 Other long term (current) drug therapy
CPT/HCPCS: 36415; 70450; 71045; 72125; 73030; 80048; 80307; 82550; 82607; 82746; 83690; 83735; 84484; 85025; 85027; 86038; 86431; 86704; 86706; 86803; 86850; 86900; 86901; 87340; 87389; 87635; 93005; 97110; 97116; 97162; 97166; 97535; 99285; J2060; J2405; J2560; J3411; J3475; P9073

== ENCOUNTER → 2022-12-07 05:29 | Outpatient (BNV) | payer OTHER, SELFPAY | PROVIDERS: Admitting Provider Student in an Organized Health Care Education/Training Program; Emergency Provider Emergency Medicine; PCP Physician Assistant; Visit Provider Internal Medicine Medical Oncology | DX: D69.6 Thrombocytopenia, unspecified (principal); F10.20 Alcohol dependence, uncomplicated | CPT/HCPCS: 99222 ==

== ENCOUNTER → 2022-12-07 05:29 | Outpatient (BNV) | payer OTHER, SELFPAY | PROVIDERS: Admitting Provider Student in an Organized Health Care Education/Training Program; Emergency Provider Emergency Medicine; PCP Physician Assistant; Visit Provider Physician Assistant | DX: S42.254A Nondisplaced fracture of greater tuberosity of right humerus, initial encounter for closed fracture (principal) | CPT/HCPCS: 99231 ==

== ENCOUNTER → 2022-12-07 05:29 | Outpatient (BNV) | payer OTHER, SELFPAY | PROVIDERS: Admitting Provider Student in an Organized Health Care Education/Training Program; Emergency Provider Emergency Medicine; PCP Physician Assistant; Visit Provider Student in an Organized Health Care Education/Training Program | DX: S42.201A Unspecified fracture of upper end of right humerus, initial encounter for closed fracture (principal) | CPT/HCPCS: 99222; 99232; 99239; 99499 ==

== ENCOUNTER 2023-01-02 16:57 | Outpatient (REF) | payer OTHER, SELFPAY ==
--- NOTE | ~2023-01-02 | XR_ITS ---
EXAMINATION: XR SHOULDER, RIGHT CLINICAL INFORMATION: Fracture of humerus. COMPARISON: 12/07/2022 TECHNIQUE: Three views of the right shoulder. FINDINGS: Previously seen subtle contour abnormality near the greater tuberosity is again noted with some slight increase in sclerosis indicative of the fact that this may represent a healing fracture. No acute finding is seen. The glenohumeral joint appears normal. The AC joint appears normal. XR/XR shoulder RT min 2V IMPRESSION: Question of healing fracture of the greater tuberosity.
== END 2023-01-02 16:58 | disposition home or self-care (01) ==
LOC: HO.XRAY 16:57
PROVIDERS: PCP Physician Assistant; Visit Provider Physician Assistant
DX: S42.201A Unspecified fracture of upper end of right humerus, initial encounter for closed fracture (principal)
CPT/HCPCS: 73030

== ENCOUNTER 2023-01-05 07:19 | Outpatient (AMB) | payer OTHER, SELFPAY ==
[2023-01-05 07:33] VITALS: BP 96/64; PULSE 93; O2SAT 98; BMI 20.8
--- NOTE | 2023-01-05 07:37 | A.OFFPC_ITS ---
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 Accompanied by: Self / Same As Patient Allergies amoxicillin [From Augmentin] Allergy (Intermediate, Verified 01/05/23 07:53) Abdominal Pain clavulanic acid [From Augmentin] Allergy (Intermediate, Verified 01/05/23 07:53) Abdominal Pain gabapentin Allergy (Intermediate, Verified 01/05/23 07:53) Dizziness Sulfa (Sulfonamide Antibiotics) [SULFA (SULFONAMIDE ANTIBIOTICS)] Allergy (Mild, Verified 01/05/23 07:53) RASH magnesium Adverse Reaction (Verified 01/05/23 07:53) Diarrhea Medication List - Last Reconciled 01/05/23 by Ollie Pulliam PA-C clonidine HCl 0.1 mg PO TID PRN 30 days hydroxyzine HCl 25 mg PO BEDTIME 90 days hyoscyamine sulfate 0.125 mg PO QID 15 days meloxicam 15 mg PO DAILY PRN 15 days multivitamin 1 tab PO DAILY oxycodone 5 mg PO Q6H PRN 3 days propranolol 10 mg See Protocol PO BID tramadol 50 mg PO DAILY PRN Tobacco use date assessed: 11/24/22 Dental Screening Dental Screen Date: 01/05/23 Did you have a dental visit in the last 12 months?: No Did you have a dental problem in the last 6 months where you did not have access to dental care?: No Was dental information given to patient?: Patient has dentist HPI Chronic Fatigue and Pain History of Present Illness Current symptoms Denies headache(s), cough, anxiety or arthralgias HPI Comments History of Present Illness Details Patient is a 42-year-old female here today for hospital discharge follow-up. Recently admitted to [facility] in November for for a fall secondary to alcohol intoxication. Fall resulted in a proximal humerus fracture that was treated with conservative approach using his sling and supportive medication for pain.. She was placed on phenobarbital protocol while in the hospital. She was discharged to a short-term rehab. Currently has her right upper extremity in the sling. She does report pain in the proximal humerus with movement of her right upper extremity. She is unable to lie down on her right side at night due to pain over right upper extremity. She has been using oxycodone and tramadol over the last few weeks. We did have long discussion about opiate pain medication in the habit-forming n ature of them. She does agree and understand. Willing switch to just using tramadol on a p.r.n. basis for pain scales of 8-10. Will supplement with the use of higher dose Tylenol. PFSH Medical History Alcohol use disorder, moderate, dependence Pancytopenia Alcohol withdrawal seizure Alcohol use disorder, severe, dependence Diverticulitis Pelvic abscess in female Anxiety Alcohol abuse Surgical History No pertinent past surgical history Family History Father Medical history unknown Mother Medical history unknown Paternal Grandfather Cancer Sister Epilepsy Daughter In good health Son In good health Other Substance use disorder Social History Household Members: None Housing: Apartment Do you presently have visiting nurse or other home services: No Alcohol intake: current Alcohol intake frequency: 3 or more drinks per day Alcohol type: beer and hard liquor Patient Tobacco Use Status: Former Tobacco user Quit Date: 2006 Tobacco use type: Cigarette e-Cigarette/Vaping Use: Never Used Second Hand Smoke Exposure: No Advance Directives Date on File: 01/25/21 service: No Current occupational status: unemployed Cognitive needs: No Hearing needs: No Vision needs: No Female Reproductive History Menstrual Age of Menarche: 11 Questionnaire Thrive Questionnaire Date Thrive assessed: 12/07/22 SENA-7 AMB Questionnaire SENA-7 Date SENA - 7 assessed: 04/20/21 Source: Developed by Drs. Aries Dawkins, Destiny Lomas, Guy Plata and colleagues, with an educational meño from [employer] Review of Systems Const Denies headache(s) Eyes Denies loss of vision ENT Denies vertigo, Denies dizziness, Denies headache(s) and Denies sore throat Card Denies chest pain, Denies leg edema and Denies lightheadedness Resp Denies cough, Denies hemoptysis and Denies wheezing GI Denies abdominal pain, Denies melena, Denies constipation, Denies diarrhea and Denies vomiting Denies urinary frequency, Denies dysuria and Denies urinary urgency Musc Denies arthralgias, Denies joint swelling, Denies numbness and Denies tingling Neuro Denies Abnormal speech present, Denies behavioral changes, Denies vertigo, Denies dizziness, Denies headache(s), Denies loss of vision, Denies memory loss, Denies numbness and Denies tingling Psych Denies anxiety, Denies behavioral changes, Denies depression, Denies memory loss and Denies panic attacks Maxime/Lymph Denies easy bleeding and Denies easy bruising Aller/Immun Denies wheezing Physical exam (Primary Care) Vital Signs: Last Vital Signs Pulse 93 01/05/23 07:33 BP 96/64 01/05/23 07:33 Pulse Ox 98 01/05/23 07:33 Oxygen Delivery Method Room Air 01/05/23 07:33 BMI result Body Mass Index 20.8 Tobacco/Smoking Status: Tobacco use Status Tobacco use date assessed 11/24/22 01/05/23 07:40 Patient Tobacco Use Status Former Tobacco user 01/05/23 07:40 Tobacco use type Cigarette 01/05/23 07:40 e-Cigarette/Vaping Use Never Used 01/05/23 07:40 Thrive Assessment: Date of Thrive Assessment Date Thrive assessed 12/07/22 01/05/23 07:40 Const General: healthy appearing, no acute distress, alert and awake Nutritional Appearance: well nourished Orientation/consciousness: oriented to person, oriented to place and oriented to time HENMT Ears: TM's normal bilaterally General nose exam: Normal nasal mucous membranes and turbinates present Eyes Conjunctivae: conjunctivae normal Sclerae: sclerae normal Pupils: Equal, round and reactive pupils present Neck Neck: Yes no lymphadenopathy and Yes no JVD Thyroid: Thyroid normal Carotids: no bruits Resp Effort & Inspection: normal respiratory effort and not tachypneic Auscultation: no crackles, no rales, no rhonchi and no wheezes Cardio Rate: regular rate Rhythm: regular rhythm Heart sounds: no murmurs and normal S1 and S2 GI Palpation (GI): Soft to palpation, nontender, no hepatomegaly and no splenomegaly Auscultation: normal bowel sounds Skin General skin exam: no rashes or lesions noted and dry skin Neuro General: oriented to person, oriented to place and oriented to time Cranial nerves: Yes Equal, round and reactive pupils present Speech: No Abnormal speech present Gait exam (Neuro): Normal gait present Motor exam (neuro): no tremor noted Extrem Other: RIGHT UPPER EXTREMITY: ARM IN SLING, LIMITED RANGE OF MOTION DUE TO PAIN. Right upper extremity: full ROM Left upper extremity: full ROM Right lower extremity: full ROM; no edema Left lower extremity: full ROM; no edema Psych Mental Status: mental status grossly normal Speech and movement: Normal speech and movement present Affect: normal affect Attitude: cooperative Thought process: Normal thought process present Assessment and Plan Assessment & Plan (1) Fracture of proximal end of right humerus: Code(s): S42.201A - Unspecified fracture of upper end of right humerus, initial encounter for closed fracture Qualifiers: Encounter type: subsequent encounter Fracture alignment: nondisplaced Fracture healing: with routine healing Fracture morphology: other fracture Fracture type: closed Qualified Code(s): S42.294D - Other nondisplaced fracture of upper end of right humerus, subsequent encounter for fracture with routine healing Plan: X-ray showing a deformity. No displacement. We discussed her pain management and agreed upon using tramadol for pain scales of 8-10, use of Tylenol as first-line. Will benefit from physical therapy and will refer to orthopedics for fracture care. (2) Alcohol use disorder, moderate, dependence: Code(s): F10.20 - Alcohol dependence, uncomplicated Plan: Had a long discussion about patient's alcoholism. 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 Most of her medical issues of directly related to her alcohol use (GI issues, falls, anxiety and insomnia.) She does agree and will restart naltrexone on a daily basis advised on getting into fellowship(12 step program) and around people letter sober for more long- term sobriety. Orders: Orders PT Evaluation and Treatment 01/05/23 M51.9 - Unspecified thoracic, thoracolumbar and lumbosacral intervertebral disc disorder, S42.294D - Other nondisplaced fracture of upper end of right humerus, subsequent encounter for fracture with routine healing Referrals Orthopedics Referral S42.294D - Other nondisplaced fracture of upper end of right humerus, subsequent encounter for fracture with routine healing Medications: New naltrexone 50 mg PO DAILY 90 days 90 tabs 1RF F10.20 - Alcohol dependence, uncomplicated Changed From tramadol 50 mg PO DAILY PRN 7 tabs 0RF pain M79.604 - Pain in right leg To tramadol 50 mg PO BID 10 days 20 tabs 0RF pain M79.604 - Pain in right leg From multivitamin 1 tab PO DAILY R79.0 - Abnormal level of blood mineral To multivitamin 1 tab PO DAILY 90 days 90 tabs 2RF R79.0 - Abnormal level of blood mineral Refilled hydroxyzine HCl 25 mg PO BEDTIME 90 days 90 tabs 1RF G47.00 - Insomnia, unspecified Discontinued oxycodone Partial Fill upon patient request. Discontinued Reason: Doctor's Order 5 mg PO Q6H 3 days PRN 12 tabs 0RF severe pain S42.201A - Unspecified fracture of upper end of right humerus, initial encounter for closed fracture Coding Level of Care Code Est Pt Level 4 (86323) Diagnoses Other closed nondisplaced fracture of proximal end of right humerus with routine healing, subsequent encounter S42.294D Encounter type: subsequent encounter Fracture alignment: nondisplaced Fracture healing: with routine healing Fracture morphology: other fracture Fracture type: closed Alcohol use disorder, moderate, dependence F10.20
== END 2023-01-05 11:45 | disposition home or self-care (01) ==
PROVIDERS: PCP Physician Assistant; Visit Provider Physician Assistant
DX: S42.294D Other nondisplaced fracture of upper end of right humerus, subsequent encounter for fracture with routine healing (principal); F10.20 Alcohol dependence, uncomplicated
CPT/HCPCS: 99214

== ENCOUNTER 2023-01-05 08:26 | Outpatient (REF) | payer OTHER, SELFPAY ==
[2023-01-05 11:07] LABS: Alanine Aminotransferase 33 U/L (0-31); Albumin Level 3.8 g/dL (3.5-5.0); Alkaline Phosphatase 71 U/L (39-117); Anion Gap 13 (12-20); Aspartate Amino Transferase 44 U/L (5-31); Bilirubin Direct < 0.2 mg/dL (0.0-0.5); Bilirubin Total 0.2 mg/dL (0.0-1.0); Blood Urea Nitrogen 7 mg/dL (9-16); Calcium 8.8 mg/dL (8.4-10.2); Carbon Dioxide 20 mmol/L (22-29); Chloride 108 mmol/L (96-108); Estimated Glomerular Filt Rate > 60; Ethanol < 10 mg/dL; Glucose Random 91 mg/dL (60-115); Magnesium 2.2 mg/dL (1.6-2.6); Potassium 4.3 mmol/L (3.3-5.1); Sodium 137 mmol/L (135-145); Total Protein 7.2 g/dL (6.5-8.0)
== END 2023-01-05 08:27 | disposition home or self-care (01) ==
LOC: HO.LAB 08:26
PROVIDERS: PCP Physician Assistant; Visit Provider Physician Assistant
DX: R79.0 Abnormal level of blood mineral (principal); F10.20 Alcohol dependence, uncomplicated
CPT/HCPCS: 36415; 80048; 80076; 80307; 83735

== ENCOUNTER 2023-01-11 08:22 | Outpatient (AMB) | payer OTHER, SELFPAY ==
[2023-01-11 08:31] VITALS: BMI 20.8
--- NOTE | 2023-01-11 08:31 | A.OFFVIS_ITS ---
Intake Vital Signs 01/11/23 08:31 Height 5 ft 4 in Weight 121 lb BMI 20.8 Intake Visit Reasons: FC- nondisplaced fX of upper end of right humerus Intake Note: Susan campa 42 year old right hand dominant female presents today for an ER follow up of right humerus fx, DOI 12/07/22. Patient reports that she fell injuring her right shoulder. Presented to [facility] [place] [place] ER same day where xrays were taken and placed in a sling. Currently her pain is 8-9 out of 10 with movement. Difficulty sleeping at night. States burning sensation in her bicep area and a shooting pain from her elbow that travels into her bicep. Denies numbness or tingling. Allergies amoxicillin [From Augmentin] Allergy (Intermediate, Verified 01/11/23 08:31) Abdominal Pain clavulanic acid [From Augmentin] Allergy (Intermediate, Verified 01/11/23 08:31) Abdominal Pain gabapentin Allergy (Intermediate, Verified 01/11/23 08:31) Dizziness Sulfa (Sulfonamide Antibiotics) [SULFA (SULFONAMIDE ANTIBIOTICS)] Allergy (Mild, Verified 01/11/23 08:31) RASH magnesium Adverse Reaction (Verified 01/11/23 08:31) Diarrhea HPI FC- nondisplaced fX of upper end of right humerus HPI Details 42-year-old right hand dominant female dayne zavala presents to the office today for an ER follow-up of right shoulder injury s/p fall, 12/07/22. She was seen at ER the same day where x-rays were performed and she was placed in a sling. She currently states she has pain in her right shoulder which makes her difficult to sleep at night. She rates the pain as about 8 on the scale of 0-10 with movement. She also c/o burning sensation in her bicep region and a shooting pain in her elbow which radiates up to her bicep. She denies any numbness or tingling. She finds relief with Tylenol, meloxicam and tramadol. PFSH Medical History Alcohol use disorder, moderate, dependence Pancytopenia Alcohol withdrawal seizure Alcohol use disorder, severe, dependence Diverticulitis Pelvic abscess in female Anxiety Alcohol abuse Surgical History No pertinent past surgical history Family History Father Medical history unknown Mother Medical history unknown Paternal Grandfather Cancer Sister Epilepsy Daughter In good health Son In good health Other Substance use disorder (Updated 01/11/23 @ 08:37 by Bette Yen Srinath) Household Members: None Housing: Apartment Do you presently have visiting nurse or other home services: No Alcohol intake: current Alcohol intake frequency: 3 or more drinks per day Alcohol type: beer and hard liquor Patient Tobacco Use Status: Former Tobacco user Quit Date: 2006 Tobacco use type: Cigarette e-Cigarette/Vaping Use: Never Used Second Hand Smoke Exposure: No Advance Directives Date on File: 01/25/21 service: No Current occupational status: unemployed Current occupation: right hand dominant Cognitive needs: No Hearing needs: No Vision needs: No Female Reproductive History Menstrual Age of Menarche: 11 Review of Systems Const All systems reviewed & are unremarkable except as noted in HPI and below Physical Exam Vital Signs: BMI result Body Mass Index 20.8 Const General: cooperative and no acute distress Orientation/consciousness: patient oriented x3 Resp Effort & Inspection: normal respiratory effort and able to speak in complete sentences Cardio Peripheral pulses: Peripheral pulses 2+ throughout Neuro General: patient oriented x3 Extrem Other: Right shoulder: Normal to inspection. No Swelling or tenderness over the proximal humerus. Anterior deltoid sensation intact. FF to 45, Abd to 30. Elbow and wrist ROM intact. NVI. Office Procedures Fracture Care Fracture Billing Code: Fracture Billing Code Results Reviewed Results Reviewed: Xrays were obtained in the office today and personally reviewed by me of the right shoulder show stable greater tuberosity fracture Assessment & Plan Assessment & Plan (1) Fracture of greater tuberosity of right humerus: Code(s): S42.251A - Displaced fracture of greater tuberosity of right humerus, initial encounter for closed fracture Qualifiers: Encounter type: initial encounter Fracture type: closed Fracture alignment: nondisplaced Qualified Code(s): S42.254A - Nondisplaced fracture of greater tuberosity of right humerus, initial encounter for closed fracture Plan I explain to her the extent of her injury and how we want to protect the RTC at this time to avoid displacement of greater tuberosity. I did recommend a course of physical therapy to work on ROM and periscapular stabilization, no RTC s trengthening until approximately 3 months post injury. I did give her a printout of home exercises at this time. She was given a prescription of naproxen to take twice a day and I would like to see her back in 6 weeks with new x-rays, sooner if needed. Orders: Orders PT Evaluation and Treatment Today S42.251A - Displaced fracture of greater tuberosity of right humerus, initial encounter for closed fracture XR shoulder RT min 2V Today M25.511 - Pain in right shoulder Medications: New naproxen 500 mg PO BID 60 tabs 3RF 30 days S42.251A - Displaced fracture of g reater tuberosity of right humerus, initial encounter for closed fracture Patient Instructions: Scribed for Genaro Cotter PA-C, by Rui Rene back office medical assistant, on 01/11/2023 at 8:30 AM EST. Genaro Castaneda PA-C, have personally reviewed and agree with the information entered by the scribe. Coding Level of Care Code Global (39805) Diagnoses Closed nondisplaced fracture of greater tuberosity of right humerus, initial encounter S42.254A Encounter type: initial encounter Fracture type: closed Fracture alignment: nondisplaced CPT Codes Fracture Care - Fracture Billing Code: Fracture Billing Code ([id number])
== END 2023-01-11 09:24 | disposition home or self-care (01) ==
PROVIDERS: PCP Physician Assistant; Visit Provider Physician Assistant
DX: S42.254A Nondisplaced fracture of greater tuberosity of right humerus, initial encounter for closed fracture (principal)
CPT/HCPCS: 99204

== ENCOUNTER 2023-01-11 15:04 | Outpatient (REF) | payer OTHER, SELFPAY ==
--- NOTE | ~2023-01-11 | XR_ITS ---
EXAMINATION: XR SHOULDER, RIGHT CLINICAL INFORMATION: Pain in right shoulder. COMPARISON: 01/02/2023. TECHNIQUE: Three views of the right shoulder. FINDINGS: Previously described subtle contour deformity at the greater tuberosity of the humerus concerning for nondisplaced fracture in the setting of trauma with some sclerosis suggesting possible healing fracture of the greater tuberosity. Acromioclavicular joint preserved. XR/XR shoulder RT min 2V IMPRESSION: Previously described subtle contour deformity at the greater tuberosity of the humerus concerning for nondisplaced fracture in the setting of trauma with some sclerosis suggesting possible healing fracture of the greater tuberosity.
== END 2023-01-11 15:05 | disposition home or self-care (01) ==
LOC: HO.HOSX 15:04
PROVIDERS: Visit Provider Physician Assistant
DX: S42.254A Nondisplaced fracture of greater tuberosity of right humerus, initial encounter for closed fracture (principal)
CPT/HCPCS: 73030; 99202

== ENCOUNTER 2023-01-14 17:31 | Inpatient (IN) | payer OTHER, SELFPAY ==
--- NOTE | ~2023-01-14 | CT_ITS ---
EXAMINATION: CT HEAD WITHOUT CONTRAST CT CERVICAL SPINE WITHOUT CONTRAST CLINICAL INFORMATION: Reason for Exam ETOH, fall, positive LOC, headache, R/O fracture, COMPARISON: CT of the head and cervical spine done on 12/07/2022. TECHNIQUE: Imaging was performed from the skull base to vertex without intravenous administration of contrast. In addition, helical noncontrast CT imaging was acquired through the cervical spine and source images were reviewed along with axial reconstructions and sagittal and coronal MPRs. This CT examination was performed using dose optimization techniques as appropriate, variously including the following: *Automated exposure control. *Adjustment of mA and/or kV according to patient size (this includes techniques or standardized protocols for targeted exams where dose is matched to indication/reason for exam; i.e. extremities or head). *Use of iterative reconstruction technique. Total exam dose-length product 789 mGy-cm FINDINGS: Motion artifacts are present. HEAD: Mild diffuse prominent extra-axial space is noted specifically around both frontal lobes, similar to prior study. No intracranial mass, hemorrhage, or midline shift is visualized. The ventricles and sulci are proportionate to the sulci. No extra-axial collections are identified. The paranasal sinuses and mastoid air cells are well aerated. CERVICAL SPINE: There is no evidence of acute cervical spine fracture. Vertebral bodies remain normal in height, intervertebral disc spaces are preserved, and alignment is anatomic. No prevertebral or paravertebral soft tissue abnormality is identified. Limited assessment of the lung apices is unremarkable. CT/CT cervical spine wo IV con IMPRESSION: 1. No acute intracranial pathology. 2. No CT evidence of acute cervical spine fracture or traumatic subluxation. 3. No significant change since prior study dated 12/07/2022.
--- NOTE | ~2023-01-14 | XR_ITS ---
EXAMINATION: XR SHOULDER, RIGHT CLINICAL INFORMATION: Greater tuberosity fracture COMPARISON: 01/11/2023z TECHNIQUE: Three views of the right shoulder. FINDINGS: There is a fracture in the region of the greater tuberosity with minimal displacement. The fracture is better seen on the current study than on the 01/11/2023 exam The glenohumeral joint is intact. No other fractures are seen. XR/XR shoulder RT min 2V IMPRESSION: Fracture of the greater tuberosity.
[2023-01-14 17:41] VITALS: BP 98/76; PULSE 103; O2SAT 96; BMI 21.9
[2023-01-14 17:45] VITALS: BP 130/91; PULSE 110; RESP 18; TEMP 36.6; O2SAT 99
--- NOTE | 2023-01-14 17:50 | PC.NURSE ---
a&ox3, vss and up to date at this time aside from being tachycardic. sinus tachy on the groundwater monitoring technician. pt comes in today d/t etoh and right shoulder pain. pt fractured right shoulder x 1 month ago - states she started drinking today d/t increased in pain. pt took 5-10 vodka nips prior to arrival. pt tearful at this time. pt changed into hospital attire. pt has hx of alcohol induced seizures - seizure pads in place at this time. respirations even and unlabored. call anguiano placed within reach.
--- NOTE | 2023-01-14 18:36 | PC.NURSE ---
CIWA = 5 at this time. pt states that she is looking for detox. will notify provider so care team can be notified once pt is medically cleared.
[2023-01-14 20:01] VITALS: BP 120/78; PULSE 107; RESP 16; O2SAT 95
--- NOTE | 2023-01-14 20:02 | PC.NURSE ---
vss and up to date at this time. pt still sinus tachy on traffic monitor specialist. pt still verbalizing 10/10 right shoulder pain at this time. pt still awaiting to be seen by ED provider at this time. respirations remain even and unlabored. call anguiano placed within reach.
--- NOTE | 2023-01-14 20:13 | PC.NURSE ---
updated CIWA = 14. provider aware at this time.
--- NOTE | 2023-01-14 20:38 | PC.NURSE ---
22gIV placed in left hand - labs drawn and sent to lab. jamey placed d/t pt stating she is unable to ambulate w/ steady gait.
--- NOTE | 2023-01-14 20:44 | ED.EXTPRO ---
HPI - Extremity Problem General Chief complaint: Extremity Injury, Upper Stated complaint: SHOULDER PAIN,ETOH Time Seen by Provider: 01/14/23 20:44 Source: patient Limitations: no limitations History of Present Illness HPI Narrative: 42 yo female with PMH of ETOH abuse with no hx of withdrawal seizures, SENA, diarrhea, celiac, IBS, GERD, lyte abnormality who presents emergency department for evaluation of alcohol intoxication and fall. Patient states that she was not invited to Thanksgiving with her family and this made her very sad therefore she drank today. She states she drink 5-10 0 vodka drinks today. She states that she fell and did strike her head. She is uncertain if she passed out and does not have any memory of falling. She was seen here in the emergency department on 12/07/2022 for a fall and at that time she had a subtle greater tuberosity femur fracture. She states that when she fell today she hit her right shoulder again and is now having right shoulder pain. She is also complaining of headache. Patient is very tearful and she is very upset that she drank today. She states she is not suicidal or homicidal. Related Data Previous Rx's Medication Instructions Recorded hyoscyamine sulfate 0.125 mg 0.125 mg PO QID 15 days #60 tabs 11/09/22 disintegrating tablet clonidine HCl 0.1 mg tablet 0.1 mg PO TID PRN Anxiety 30 days 11/24/22 #90 tabs meloxicam 15 mg tablet 15 mg PO DAILY PRN pain 15 days 11/24/22 #15 tabs propranolol 10 mg tablet 10 mg PO BID #60 tabs 12/13/22 hydroxyzine HCl 25 mg tablet 25 mg PO BEDTIME 90 days #90 tabs 01/05/23 multivitamin 1 tab PO DAILY 90 days #90 tabs 01/05/23 naltrexone 50 mg tablet 50 mg PO DAILY 90 days #90 tabs 01/05/23 tramadol 50 mg tablet 50 mg PO BID pain 10 days #20 tabs 01/05/23 naproxen 500 mg tablet 500 mg PO BID 30 days #60 tabs 01/11/23 Allergies Allergy/AdvReac Type Severity Reaction Status Date / Time amoxicillin [From Augmentin] Allergy Intermediate Abdominal Verified 01/14/23 17:41 Pain clavulanic acid Allergy Intermediate Abdominal Verified 01/14/23 17:41 [From Augmentin] Pain gabapentin Allergy Intermediate Dizziness Verified 01/14/23 17:41 Sulfa (Sulfonamide Allergy Mild RASH Verified 01/14/23 17:41 Antibiotics) [SULFA (SULFONAMIDE ANTIBIOTICS)] magnesium AdvReac Diarrhea Verified 01/14/23 17:41 Review of Systems Review of Systems: Yes all other systems are reviewed and are negative [facility] Past Medical History [facility] Narrative: Social history: She denies tobacco use. She does admit to drinking alcohol today. Denies drug use. Medical History Alcohol use disorder, moderate, dependence Pancytopenia Alcohol withdrawal seizure Alcohol use disorder, severe, dependence Diverticulitis Pelvic abscess in female Anxiety Alcohol abuse Surgical History No pertinent past surgical history Family History Family History Father Medical history unknown Mother Medical history unknown Paternal Grandfather Cancer Sister Epilepsy Daughter In good health Son In good health Other Substance use disorder Social History (Updated 01/11/23 @ 08:37 by ESTHER Funk) Household Members: None Housing: Apartment Do you presently have visiting nurse or other home services: No Alcohol intake: current Alcohol intake frequency: 3 or more drinks per day Alcohol type: hard liquor Patient Tobacco Use Status: Former Tobacco user Quit Date: 2006 Tobacco use type: Cigarette Smoked in Last 30 Days: No e-Cigarette/Vaping Use: Never Used Second Hand Smoke Exposure: No Use of substances other than those prescribed or required for medical reasons: No Advance Directives: Yes Advance Directives on File: Yes Advance Directives Date on File: 01/25/21 Patient : No service: No Current occupational status: unemployed Current occupation: right hand dominant Cognitive needs: No Hearing needs: No Vision needs: No Physical Exam Vital Signs: Vital Signs: Last Vital Signs Temp 97.9 F 01/14/23 17:45 Pulse 108 H 01/14/23 22:19 Resp 18 01/14/23 22:19 BP 131/77 01/14/23 22:19 Pulse Ox 98 01/14/23 22:19 O2 Del Method Room Air 01/14/23 22:19 BMI result Body Mass Index 21.9 Vital signs did reveal an elevated pulse of 107 otherwise unremarkable Exam: General: Awake, alert , appears intoxicated, tearful Head: Normocephalic, atraumatic EENT: PERRL, Lids normal, sclera normal, conjunctiva normal, nose normal , ears normal, throat without erythema or exudates Neck: Supple, no adenopathy, no trachea midline , tender cervical spine Lung: breath sounds symmetric, no wheezing, rales or rhonchi Chest: symmetric movement, nontender Heart: regular rate and rhythm, normal S1, S2 no murmurs or rubs Abdomen: soft, non-tender, nondistended, normal bowel sounds Back: no vertebral tenderness, no CVAT Extremities: no deformities, tender right shoulder limited range of motion secondary to pain Neuro: Awake, alert, oriented, normal speech, cranial nerves intact, moves all extremities symmetrically Psych: Pleasant, intoxicated, tearful, cooperative Medications Administered Discontinued Medications Generic Name Dose Route Start Last Admin Trade Name Freq PRN Reason Stop Dose Admin Sodium Chloride 1,000 mls @ 999 mls/hr 01/15/23 00:19 01/15/23 01:23 Ns IV 01/15/23 01:19 999 mls/hr .Q1H1M STA Administration Lorazepam 2 mg 01/15/23 01:23 01/15/23 01:27 Lorazepam 1 Mg Tablet PO 01/15/23 01:24 2 mg ONCE STA Administration Tramadol HCl 50 mg 01/14/23 22:07 01/14/23 22:16 Tramadol Hcl 50 Mg Tablet PO 01/14/23 22:08 50 mg ONCE ONE Administration Medical Decision Making Medical Decision Making MDM Narrative: 42 yo female with PMH of ETOH abuse with no hx of withdrawal seizures, SENA, diarrhea, celiac, IBS, GERD, lyte abnormality who presents emergency department for evaluation of alcohol intoxication and fall. Patient states that she was not invited to Thanksgiving with her family and this made her very sad therefore she drank today. She states she drink 5-10 0 vodka drinks today. Patient had an unwitnessed fall, reports loss of consciousness, headache, neck pain and right shoulder pain. Patient had a previous nondisplaced fracture of the right greater tuberosity of the femur diagnosed on 12/07/2022. Exam did reveal normal vital signs. Patient appears to be intoxicated, she is tearful, she did have tenderness palpation of her neck and right shoulder. Following evaluation was ordered: CBC, BMP, urinalysis, ethanol level, CT scan of the cervical spine and brain, x-ray of the right shoulder. 00:20 Start physician observation Patient's laboratory evaluation was consistent with acute intoxication Patient's shoulder x-ray revealed no dislocation, the patient fracture of the greater tuberosity which is not new does not appear to be significantly worse than the previous x-ray CT scans of the head and cervical spine revealed no acute fractures. Patient does take tramadol and she was ordered for trauma 50 mg orally for her pain, she was also revealed normal saline x1 L. Patient will be kept in the emergency department until she is sober be safely discharged. 02:20 Continue physician observation Patient states she is not feeling better. She states she is sad but denies being suicidal. Patient still appears to be intoxicated therefore she will be kept in the emergency department and reassessed in the morning to see if her symptoms improved. At this time she is not certain if she wants to get into a detox program but she will have the option talk to her assistant wrestling coach/care team in the morning. At the end of my shift, the patient's care was turned over to my colleague, Dr. Davis. Differential Diagnosis Differential Diagnoses: The differential diagnosis associated with the presentation includes Differential diagnosis includes was not limited to skull fracture, intracranial bleed, cervical fracture, right shoulder fracture, contusions, electrolyte abnormality, anemia, alcohol intoxication Admission/Observation Consideration of admission/observation: Escalation of care including admission/observation considered Lab Data MDM Lab Attestation statement: I reviewed the patient's lab results. My interpretation patient's laboratory evaluation as follows: CBC revealed normocytic anemia with an H&H of 10.9 and 34.3-this is chronic. Chloride elevated 109, bicarb low 21, ethanol elevated 272. 01/14/23 21:13 01/14/23 21:13 Labs: Lab Results 01/14/23 01/14/23 Range/Units 20:28 21:13 WBC 7.9 (4.8-10.8) X10*3/uL RBC 4.45 D (4.20-5.50) X10*6/uL Hgb 12.6 (12.0-16.0) g/dl Hct 37.4 (37.0-47.0) % MCV 84.0 (80.0-98.0) fL MCH 28.3 (27.0-33.0) pg MCHC 33.7 (31.0-35.0) g/dl RDW 14.8 (11.0-16.0) % Plt Count 370 D (160-400) X10*3/uL MPV 9.9 (9.4-12.3) fL Immature Gran % (Auto) 0.1 (0.0-0.4) % Neut % (Auto) 40.7 L (45-73) % Lymph % (Auto) 49.8 H (20-40) % [place] % (Auto) 7.7 (2-11) % Eos % (Auto) 0.9 (0-4) % Baso % (Auto) 0.8 (0-2) % Lymph # (Auto) 3.9 (1.2-4.9) X10*3/uL [place] # (Auto) 0.6 (0.1-1.2) X10*3/uL Eos # (Auto) 0.1 (0.0-0.4) X10*3/uL Baso # (Auto) 0.1 (0.0-0.2) X10*3/uL Abs Immat Gran (auto) 0.01 (0.00-0.03) X10*3/uL Absolute Neuts (auto) 3.2 (2.0-8.3) x10*3/uL Absolute Nucleated RBC 0.000 (0.0-0.012) X10*3/uL Nucleated RBC % (auto) 0.0 (0.0-0.2) /100WBC Sodium 144 147 H (135-145) mmol/L Potassium 4.1 3.5 (3.3-5.1) mmol/L Chloride 109 H 109 H (96-108) mmol/L Carbon Dioxide 21 L 25 (22-29) mmol/L Anion Gap 18 17 (12-20) BUN 5 L 5 L (9-16) mg/dL Creatinine 0.53 0.51 (0.5-1.4) mg/dL Estim Creat Clear Calc 112.0 116.4 Estimated GFR > 60 > 60 Random Glucose 112 108 (60-115) mg/dL Calcium 9.0 8.9 (8.4-10.2) mg/dL Total Bilirubin 0.2 (0.0-1.0) mg/dL AST 41 H (5-31) U/L ALT 31 (0-31) U/L Alkaline Phosphatase 80 (39-117) U/L Total Protein 7.3 (6.5-8.0) g/dL Albumin 4.0 (3.5-5.0) g/dL Ethyl Alcohol 272 mg/dL Independent Interpretation I performed an independent interpretation of an: Plain X-Ray Interpretation: My interpretation the patient's right shoulder x-ray is as follows: Film was done and internal rotation of the shoulder, no dislocation noted, patient lokesh meeks has a fracture of the greater tuberosity which was seen on previous x-rays, and does not appear to be more severe secondary to the recent fall. Radiology Impression Discussion of test interpretation with radiology: I have reviewed the radiologist's reading. Radiologist Impression: XR shoulder RT min 2V IMPRESSION: Fracture of the greater tuberosity. Dictated By: Dani Kim MD CT cervical spine and head wo IV con IMPRESSION: 1. No acute intracranial pathology. 2. No CT evidence of acute cervical spine fracture or traumatic subluxation. 3. No significant change since prior study dated 12/07/2022. Dictated By: Leola Washington MD Discharge Plan Discharge Clinical Impression: Depression Fall Qualifiers: Encounter type: initial encounter Qualified Code(s): W19.XXXA - Unspecified fall, initial encounter Alcohol intoxication Qualifiers: Complication of substance-induced condition: uncomplicated Qualified Code(s): F10.920 - Alcohol use, unspecified with intoxication, uncomplicated Closed fracture of greater tuberosity of right humerus Qualifiers: Encounter type: subsequent encounter Fracture alignment: nondisplaced Patient Disposition: Still a Patient Prescriptions: No Action hyoscyamine sulfate 0.125 mg tablet,disintegrating 0.125 mg PO QID 15 Days Qty: 60 0RF propranolol 10 mg Tablet 10 mg PO BID Qty: 60 0RF Protocol: Hold for SBP/HR < HOLD for SBP < : 90 HOLD for HR < : 60 meloxicam 15 mg tablet 15 mg PO DAILY PRN (Reason: pain) 15 Days Qty: 15 0RF clonidine HCl 0.1 mg tablet 0.1 mg PO TID PRN (Reason: Anxiety) 30 Days Qty: 90 1RF tramadol 50 mg tablet 50 mg PO BID 10 Days Qty: 20 0RF hydroxyzine HCl 25 mg tablet 25 mg PO BEDTIME 90 Days Qty: 90 1RF multivitamin Tablet 1 tab PO DAILY 90 Days Qty: 90 2RF naltrexone 50 mg tablet 50 mg PO DAILY 90 Days Qty: 90 1RF naproxen 500 mg tablet 500 mg PO BID 30 Days Qty: 60 3RF
[2023-01-14 20:50] LABS: Anion Gap 18 (12-20); Blood Urea Nitrogen 5 mg/dL (9-16); Carbon Dioxide 21 mmol/L (22-29); Chloride 109 mmol/L (96-108); Estimated Glomerular Filt Rate > 60; Ethanol 272 mg/dL; Glucose Random 112 mg/dL (60-115); Potassium 4.1 mmol/L (3.3-5.1); Sodium 144 mmol/L (135-145)
--- NOTE | 2023-01-14 20:51 | PC.NURSE ---
pt speaking w/ ED provider at this time.
--- NOTE | 2023-01-14 21:01 | PC.NURSE ---
tech bedside obtaining repeat labs. pt aware of plan of care after speaking w/ ED provider at this time.
[2023-01-14 21:21] LABS: MANUAL DIFF FLAG NO
[2023-01-14 21:22] LABS: Basophils Absolute Auto 0.1 X10*3/uL (0.0-0.2); Basophils Percent Auto 0.8 % (0-2); Eosinophils Absolute Auto 0.1 X10*3/uL (0.0-0.4); Eosinophils Percent Auto 0.9 % (0-4); Hematocrit 37.4 % (37.0-47.0); Hemoglobin 12.6 g/dl (12.0-16.0); Imm Gran Abs Auto 0.01 X10*3/uL (0.00-0.03); Imm Gran Pct Auto 0.1 % (0.0-0.4); Lymphocytes Absolute Auto 3.9 X10*3/uL (1.2-4.9); Lymphocytes Percent Auto 49.8 % (20-40); Mean Corpuscular HGB Conc 33.7 g/dl (31.0-35.0); Mean Corpuscular Hemoglobin 28.3 pg (27.0-33.0); Mean Platelet Volume 9.9 fL (9.4-12.3); Monocytes Absolute Auto 0.6 X10*3/uL (0.1-1.2); Monocytes Percent Auto 7.7 % (2-11); Neutrophils Absolute Auto 3.2 x10*3/uL (2.0-8.3); Neutrophils Percent Auto 40.7 % (45-73); Platelet Count 370 X10*3/uL (160-400); Red Blood Count 4.45 X10*6/uL (4.20-5.50); Red Cell Distribution Width 14.8 % (11.0-16.0); White Blood Count 7.9 X10*3/uL (4.8-10.8)
[2023-01-14 21:38] LABS: Alanine Aminotransferase 31 U/L (0-31); Alkaline Phosphatase 80 U/L (39-117); Anion Gap 17 (12-20); Aspartate Amino Transferase 41 U/L (5-31); Bilirubin Total 0.2 mg/dL (0.0-1.0); Blood Urea Nitrogen 5 mg/dL (9-16); Calcium 8.9 mg/dL (8.4-10.2); Carbon Dioxide 25 mmol/L (22-29); Chloride 109 mmol/L (96-108); Creatinine Clr Calc Pharmacy 116.4; Estimated Glomerular Filt Rate > 60; Glucose Random 108 mg/dL (60-115); Potassium 3.5 mmol/L (3.3-5.1); Sodium 147 mmol/L (135-145); Total Protein 7.3 g/dL (6.5-8.0)
--- NOTE | 2023-01-14 21:53 | PC.NURSE ---
this rn assumed care of pt, pt resting in stretcher comfortably, no acute distress.
[2023-01-14] MEDS: traMADoL HCL 50 MG TABLET PO (22:16)
[2023-01-14 22:19] VITALS: BP 131/77; PULSE 108; RESP 18; O2SAT 98
--- NOTE | 2023-01-14 22:22 | PC.NURSE ---
pt medicated per apr for 10/10 right shoulder pain. CIWA 6, provider aware. pt given warm blanket and resting comfortably.
[2023-01-15] VITALS (7 sets, daily range): BP systolic 119–136; BP diastolic 80–92; PULSE 94–130; RESP 14–20; TEMP 36.6–37.2; O2SAT 95–98
[2023-01-15] MEDS: 0.9 % Sodium Chloride 1,000 ML 999 ML IV ×2 (01:23→09:35)
[2023-01-15] MEDS: LORazepam 1 MG TABLET 2 MG PO (01:27)
[2023-01-15 03:15] LABS: Appearance Urine Turbid; Color Urine Yellow; Glucose Urine UA Negative (Negative); Leukocyte Esterase Urine Trace (Negative); Nitrite Urine Negative (Negative); UMIC TRIGGER UACC YES; Urine Blood Negative (Negative); Urine Ketones Negative (Negative); Urine Protein Trace mg/dL (Neg-Trace)
[2023-01-15 03:36] LABS: Bacteria Urine 2+ (None Seen); Hyaline Casts Urine 0-2 /LPF (0-2); RBC Urine 0-2 /HPF (0-2); WBC Urine 0-5 /HPF (0-5)
--- NOTE | 2023-01-15 04:59 | PC.NURSE ---
pt resting on stretcher comfortably, no acute distress, respirations even and unlabored.
--- NOTE | 2023-01-15 07:53 | PC.NURSE ---
assumed care of pt at 0700. pt a&o x4, pleasant, calm, and cooperative. purewick d/c'd due to pt stating she feel strong enough to ambulate to bathroom and will use call anguiano beforehand. pt reporting 9/10 right shoulder pain, requesting medication. Dr. Kenney notified and aware. ordering pain medication. Dr. Kenney sts pt should not be given Tramadol due to seizure hx. pt resting quietly on stretcher. rr even/unlabored.
--- NOTE | 2023-01-15 09:06 | MHC.RECOVRN ---
Met with pt in ED21 after consult to CARE Team for possible ATS. Pt laying in bed, awake, alert, easily engages in conversation, appears anxious. Pt reports alcohol use, approx 10 nips flavored vodka daily x 4 days. Pt reports having abstained from alcohol since admission to [facility] last month. Pt unable to identify supports utilized during that time. Pt reports stress of holiday led to recurrence and plans to abstain once dc from the hospital. Pt had been on naltrexone in the past and reports it was helpful, however, is receiving pain medication due to shoulder injury so has been unable to take it. Educated pt on other VIC options. Pt reports no voluntary ATS admissions, however, 2 Sect 35 to [facility]. Pt reports having completed an IOP in the past. During last admission pt had reported having a coach driver, pt has since lost touch with women's swim coach. Pt does have pillowcase folder through [employer] who has helped pt navigate [employer], creating resume, etc. Pt reports pillowcase folder is setting pt up with new coach driver. Pt is not interested in inpatient ATS at this time. Discussed outpatient options including PHP/IOP, CCC, therapy, etc. Pt declines referrals at this time. Pt has been living with mother, request t/w speak with mother to apologize for recurrence and inform her she would like to see her. Pt denies other questions or concerns at this time. Pt provided with written resources as well as t/w contact information if needed. After meeting with pt, t/w spoke with mother, Kaelyn ([phone]) who was appreciative of phone call however informed t/w pt can not return to her home after dc due to having custody of pts daughter/DCF involvement. Mother also expressed concern regarding pts past difficult withdrawal and concern for seizure. Mother did not have further questions or concerns for t/w. Discussed with pts RN. T/w available if needed.
[2023-01-15] MEDS: Ketorolac Tromethamine 15 MG/ML VIAL IVPUSH (09:08)
[2023-01-15] MEDS: chlordiazePOXIDE HCl 25 MG CAPSULE 50 MG PO (09:33)
[2023-01-15] MEDS: LORazepam 2 MG/ML VIAL IVPUSH (09:35)
--- NOTE | 2023-01-15 09:36 | PC.NURSE ---
pt reporting difficulty opening left hand. sts cramp-like sensation. fingers are in open-fist position. slowly opens and closes hand. Dr. Kenney notified and aware. magnesium ordered for pt. pt normally refuses this medication due to causing diarrhea but has complied with taking it.
[2023-01-15] MEDS: Magnesium Sulfate/H2O 2 GM/50 ML PIGGYBACK IV (09:38)
[2023-01-15] MEDS: LORazepam 2 MG/ML VIAL 1 MG IVPUSH (13:15)
[2023-01-15] MEDS: Thiamine HCL 200 MG in 0.9 % Sodium Chloride 100 ML 204 MG IV (13:16)
--- NOTE | 2023-01-15 13:34 | PC.NURSE ---
went in to discharge pt. noticed pt HR in 150s. CIWA 15. notified Dr. Kenney. cancelled discharge and put in for pt admission for alcohol withdrawal. pt medicated per apr. rr even/unlabored. pt resting quietly in no apparent distress. pt offers no complaints georgiana. call anguiano within pt reach. awaiting admit orders.
[2023-01-15] MEDS: PHENobarbitaL sodium 130 MG/ML IM ONCE 210 MG IM (13:57)
[2023-01-15] MEDS: Enoxaparin Sodium 40 MG/0.4 ML SYRINGE SUBCUT (13:58)
--- NOTE | 2023-01-15 14:24 | P.HPHOSP_ITS ---
History of Present Illness Date of Service: 01/15/23 Chief Complaint: Alcohol withdrawal Patient states she has been drinking over last several days secondary to situational depression. States she attempted to stop and developed tremors similar to past episodes. She denies seizures at this time. In the ER she initially responded to therapies however over time her CIWA scale increased necessitating the admission for phenobarb protocol Review of Systems 2 Review of Systems: Denies chest pain Denies shortness of breath Denies nausea vomiting diarrhea Denies fever chills PMFSH Medical History Alcohol use disorder, moderate, dependence Pancytopenia Alcohol withdrawal seizure Alcohol use disorder, severe, dependence Diverticulitis Pelvic abscess in female Anxiety Alcohol abuse Family History Father Medical history unknown Mother Medical history unknown Paternal Grandfather Cancer Sister Epilepsy Daughter In good health Son In good health Other Substance use disorder Surgical History No pertinent past surgical history Household Members: None Housing: Apartment Do you presently have visiting nurse or other home services: No Alcohol intake: current Alcohol intake frequency: 3 or more drinks per day Alcohol type: hard liquor Patient Tobacco Use Status: Former Tobacco user Quit Date: 2006 Tobacco use type: Cigarette Smoked in Last 30 Days: No e-Cigarette/Vaping Use: Never Used Second Hand Smoke Exposure: No Use of substances other than those prescribed or required for medical reasons: No Advance Directives: Yes Advance Directives on File: Yes Advance Directives Date on File: 01/25/21 Patient : No service: No Current occupational status: unemployed Current occupation: right hand dominant Cognitive needs: No Hearing needs: No Vision needs: No Meds Allergies Allergy/AdvReac Type Severity Reaction Status Date / Time amoxicillin [From Augmentin] Allergy Intermediate Abdominal Verified 01/14/23 17:41 Pain clavulanic acid Allergy Intermediate Abdominal Verified 01/14/23 17:41 [From Augmentin] Pain gabapentin Allergy Intermediate Dizziness Verified 01/14/23 17:41 Sulfa (Sulfonamide Allergy Mild RASH Verified 01/14/23 17:41 Antibiotics) [SULFA (SULFONAMIDE ANTIBIOTICS)] magnesium AdvReac Diarrhea Verified 01/14/23 17:41 Active Medications: Current Medications Acetaminophen (Acetaminophen 325 Mg Tablet) 650 mg PO Q6H PRN PRN Reason: Pain, Mild (Pain Scale 1-3) Enoxaparin Sodium (Enoxaparin Sodium 40 Mg/0.4 Ml Syringe) 40 mg SUBCUT Q24H [facility] Last Admin: 01/15/23 13:58 Dose: 40 mg Ondansetron HCl (Ondansetron Hcl 4 Mg/2 Ml Vial) 4 mg IVPUSH Q8H PRN PRN Reason: Nausea and Vomiting Pharmacy Consult (Consult Rx Etoh Phenob Im/Po) 1 each MISCELLANE ONCE PRN; Protocol PRN Reason: Consult order Phenobarbital (Phenobarbital 15 Mg Tablet) 45 mg PO BID [facility] Stop: 01/17/23 21:01 Phenobarbital (Phenobarbital 15 Mg Tablet) 15 mg PO BID [facility] Stop: 01/19/23 21:01 Phenobarbital (Phenobarbital 15 Mg Tablet) 15 mg PO DAILY [facility] Stop: 01/21/23 09:01 Phenobarbital Sodium (Phenobarbital Sodium 130 Mg/Ml Vial Im Q3hx2) 157 mg IM Q3H [facility] Stop: 01/15/23 20:01 Sodium Chloride (0.9 % Sodium Chloride Flush 3 Ml Syringe) 3 ml IVFLUSH QSHIFT [facility] Home Medications Medication Instructions Recorded Confirmed Last Taken Type clonidine HCl 0.1 mg tablet 0.1 mg PO BEDTIME PRN Anxiety 01/15/23 01/15/23 Unknown History diclofenac sodium 1 % topical gel 2 g topical QID PRN pain 01/15/23 01/15/23 Unknown History hyoscyamine sulfate 0.125 mg 0.125 mg PO QID PRN Abdominal Pain 01/15/23 01/15/23 Unknown History disintegrating tablet propranolol 10 mg tablet 10 mg PO DAILY 01/15/23 01/15/23 Unknown History tramadol 50 mg tablet 50 mg PO BID PRN pain 01/15/23 01/15/23 Unknown History vitamin B complex 1 cap PO DAILY 01/15/23 01/15/23 Unknown History Physical Exam 2 Vital Signs and Narrative: Vital Signs: Last Vital Signs Temp 98.6 F 01/15/23 13:45 Pulse 117 H 01/15/23 13:45 Resp 20 01/15/23 13:45 BP 130/83 01/15/23 13:45 Pulse Ox 96 01/15/23 13:45 O2 Del Method Room Air 01/15/23 13:45 BMI result Body Mass Index 21.9 Const: Other: Awake alert no acute distress Resp: Other: Clear to auscultation bilaterally no rales rhonchi or wheezes Cardio: Other: No S4; positive S1-S2; no S3 murmurs rubs or gallops GI: Other: Soft nontender nondistended normoactive bowel sounds Extrem: Other: No edema bilaterally Results Labs 01/14/23 21:13 01/14/23 21:13 Labs: Laboratory Results - last 24 hr 01/14/23 01/14/23 01/15/23 20:28 21:13 03:09 MCV 84.0 MCH 28.3 MCHC 33.7 RDW 14.8 Plt Count 370 D MPV 9.9 Immature Gran % (Auto) 0.1 Neut % (Auto) 40.7 L Lymph % (Auto) 49.8 H [place] % (Auto) 7.7 Eos % (Auto) 0.9 Baso % (Auto) 0.8 Lymph # (Auto) 3.9 [place] # (Auto) 0.6 Eos # (Auto) 0.1 Baso # (Auto) 0.1 Abs Immat Gran (auto) 0.01 Absolute Neuts (auto) 3.2 Absolute Nucleated RBC 0.000 Nucleated RBC % (auto) 0.0 Anion Gap 18 17 Estim Creat Clear Calc 112.0 116.4 Estimated GFR > 60 > 60 Random Glucose 112 108 Calcium 9.0 8.9 Total Bilirubin 0.2 AST 41 H ALT 31 Alkaline Phosphatase 80 Total Protein 7.3 Albumin 4.0 Urine Color Yellow Urine Appearance Turbid Urine pH 6.0 Ur Specific [place] 1.020 Urine Protein Trace Urine Glucose (UA) Negative Urine Ketones Negative Urine Blood Negative Urine Nitrite Negative Ur Leukocyte Esterase Trace H Urine RBC 0-2 Urine WBC 0-5 Ur Squamous Epith Cells 3-5 Urine Bacteria 2+ Hyaline Casts 0-2 Ethyl Alcohol 272 Imaging Radiologist's Impressions: Impressions Shoulder X-Ray 01/14/23 21:29 IMPRESSION: Fracture of the greater tuberosity. Cervical Spine CT 01/14/23 21:46 IMPRESSION: 1. No acute intracranial pathology. 2. No CT evidence of acute cervical spine fracture or traumatic subluxation. 3. No significant change since prior study dated 12/07/2022. Head CT 01/14/23 21:46 IMPRESSION: 1. No acute intracranial pathology. 2. No CT evidence of acute cervical spine fracture or traumatic subluxation. 3. No significant change since prior study dated 12/07/2022. Assessment and Plan (1) Alcohol withdrawal: Qualifiers: Complication of substance-induced condition: uncomplicated Qualified Code(s): F10.930 - Alcohol use, unspecified with withdrawal, uncomplicated Status: Resolved Plan 42-year-old female with known history of alcohol abuse presented after 3 days of heavy drinking with withdrawal symptoms. Attempted to discharge however withdrawal became more severe and she was requested admission for [facility] protocol 1. Alcohol withdrawal -observed on [facility] protocol -phenobarbital as per protocol -seizure precautions Full code Lovenox Patient requires at least 2 midnights going forward for treatment of alcohol withdrawal with phenobarb protocol. This cannot be done in a less acute setting Quality Stroke Does the patient have a stroke diagnosis?: No VTE Prior VTE?: No VTE Risk Level:: Medical - moderate - high VTE Device Contraindication: Treatment Not Indicated VTE Drug Contraindication: N/A - Med Ordered
--- NOTE | 2023-01-15 14:35 | PHA.MEDREC ---
Pharmacy Consult ? Medication Reconciliation Pharmacy has completed the medication reconciliation. Spoke with patient in the ED who was able to list off all medications. Patient takes one clonidine and hydroxyzine in the evening. patient has not started naloxone.
--- NOTE | 2023-01-15 17:02 | PC.NURSE ---
CIWA 4. pt resting quietly on stretcher, in no apparent distress. rr even/unlabored. HR in low 100s. no tremors, palms moist, denies headache.
[2023-01-15] MEDS: PHENobarbitaL sodium 130 MG/ML VIAL IM Q3Hx2 157 MG IM ×2 (17:06→21:35)
--- NOTE | 2023-01-15 18:00 | PC.NURSE ---
pt current IV causing pain to pt, some redness/swelling at site. t/w attempted to place new IV 2x. no success. AMMON Gonzalez attempted to place new IV 2x. no success. LIS Quinn aware and notified. will attempt ultrasound guided IV.
--- NOTE | 2023-01-15 20:37 | MHC.EDTECH ---
This tech assumed care of patient at 1900,hourly rounds and vitals completed, patient ate 100% of dinner that was given prior to my arrival. Patient urinated a moderate amount on commode. Call anguiano within reach
[2023-01-15] MEDS: hydrOXYzine HCL 25 MG TABLET PO (21:36)
--- NOTE | 2023-01-15 21:45 | PC.NURSE ---
Pt medicated per apr. PT ca&ox4, no signs of distress. Pt requested old IV line removed. No line placed by provider. Plan of care ongoing.
[2023-01-16] VITALS (8 sets, daily range): BP systolic 103–159; BP diastolic 74–99; PULSE 73–102; RESP 16–18; TEMP 36–36.9; O2SAT 96–100
[2023-01-16] MEDS: 0.9 % Sodium Chloride Flush 3 ML SYRINGE IVFLUSH ×4 (01:14→19:32)
--- NOTE | 2023-01-16 04:39 | PC.NURSE ---
Pt assisted to bedside commode. Pt assisted back into bed. Plan of care ongoing.
[2023-01-16 06:03] LABS: MANUAL DIFF FLAG NO
[2023-01-16 06:25] LABS: Alanine Aminotransferase 24 U/L (0-31); Albumin Level 3.3 g/dL (3.5-5.0); Alkaline Phosphatase 78 U/L (39-117); Anion Gap 12 (12-20); Aspartate Amino Transferase 48 U/L (5-31); Bilirubin Total 0.6 mg/dL (0.0-1.0); Blood Urea Nitrogen 5 mg/dL (9-16); Calcium 8.4 mg/dL (8.4-10.2); Carbon Dioxide 22 mmol/L (22-29); Chloride 107 mmol/L (96-108); Creatinine Clr Calc Pharmacy 116.4; Estimated Glomerular Filt Rate > 60; Glucose Fasting 100 mg/dL (60-99); Glucose Random 100 mg/dL (60-115); Potassium 3.7 mmol/L (3.3-5.1); Sodium 137 mmol/L (135-145); Total Protein 6.3 g/dL (6.5-8.0)
[2023-01-16 06:30] LABS: Basophils Percent Auto 0.8 % (0-2); Eosinophils Absolute Auto 0.5 X10*3/uL (0.0-0.4); Eosinophils Percent Auto 10.9 % (0-4); Hematocrit 34.9 % (37.0-47.0); Hemoglobin 11.5 g/dl (12.0-16.0); Imm Gran Abs Auto 0.01 X10*3/uL (0.00-0.03); Imm Gran Pct Auto 0.2 % (0.0-0.4); Lymphocytes Absolute Auto 1.8 X10*3/uL (1.2-4.9); Lymphocytes Percent Auto 36.1 % (20-40); Mean Corpuscular Hemoglobin 28.3 pg (27.0-33.0); Mean Platelet Volume 11.3 fL (9.4-12.3); Monocytes Absolute Auto 0.5 X10*3/uL (0.1-1.2); Monocytes Percent Auto 10.9 % (2-11); Neutrophils Percent Auto 41.1 % (45-73); Platelet Count 249 X10*3/uL (160-400); Red Blood Count 4.06 X10*6/uL (4.20-5.50); Red Cell Distribution Width 14.2 % (11.0-16.0); White Blood Count 4.9 X10*3/uL (4.8-10.8)
[2023-01-16] MEDS: PHENobarbitaL 15 MG TABLET 45 MG PO ×2 (10:01→19:31)
[2023-01-16] MEDS: Acetaminophen 325 MG TABLET 650 MG PO (10:01)
[2023-01-16] MEDS: Propranolol HCL 10 MG TABLET PO (10:01)
--- NOTE | 2023-01-16 12:02 | MHC.CM.PN ---
CM met with Pt in ED, she reports that she lives alone, has services from [employer] case picker, and that she has plans to go to PT and OT outpatient, she uses public transportation and get rides. She said that her HCP is her mother. CM to follow and assist with DC plan.
[2023-01-16] MEDS: Enoxaparin Sodium 40 MG/0.4 ML SYRINGE SUBCUT (14:10)
--- NOTE | 2023-01-16 15:29 | P.PNIM_ITS ---
Subjective Subjective Date of Service: 01/16/23 Interval History: Doing well overall. CIWA at 0 this afternoon Review of Systems Denies chest pain Denies shortness of breath Denies nausea vomiting diarrhea Denies fever chills Physical Exam 2 Vital Signs: Vital Signs: Last Vital Signs Temp 98.5 F 01/16/23 15:04 Pulse 92 01/16/23 15:04 Resp 18 01/16/23 15:04 BP 103/74 01/16/23 15:04 Pulse Ox 100 01/16/23 15:04 O2 Del Method Room Air 01/16/23 15:04 BMI result Body Mass Index 21.9 Const: Other: Awake alert no acute distress Resp: Other: Clear to auscultation bilaterally no rales rhonchi or wheezes Cardio: Other: No S4; positive S1-S2; no S3 murmurs rubs or gallops GI: Other: Soft nontender nondistended normoactive bowel sounds Extrem: Other: No edema bilaterally Objective Data Active Medications Acetaminophen (Acetaminophen 325 Mg Tablet) 650 mg PO Q6H PRN PRN Reason: Pain, Mild (Pain Scale 1-3) Last Admin: 01/16/23 10:01 Dose: 650 mg Documented By: SAURAV Clonidine HCl (Clonidine Hcl 0.1 Mg Tablet) 0.1 mg PO BEDTIME PRN; Protocol PRN Reason: Anxiety Enoxaparin Sodium (Enoxaparin Sodium 40 Mg/0.4 Ml Syringe) 40 mg SUBCUT Q24H [facility] Last Admin: 01/16/23 14:10 Dose: 40 mg Documented By: ILIA Hydroxyzine HCl (Hydroxyzine Hcl 25 Mg Tablet) 25 mg PO BEDTIME [facility] Last Admin: 01/15/23 21:36 Dose: 25 mg Documented By: CHRISSY Ondansetron HCl (Ondansetron Hcl 4 Mg/2 Ml Vial) 4 mg IVPUSH Q8H PRN PRN Reason: Nausea and Vomiting Pharmacy Consult (Consult Rx Etoh Phenob Im/Po) 1 each MISCELLANE ONCE PRN; Protocol PRN Reason: Consult order Phenobarbital (Phenobarbital 15 Mg Tablet) 45 mg PO BID [facility] Stop: 01/17/23 21:01 Last Admin: 01/16/23 10:01 Dose: 45 mg Documented By: SAURAV Phenobarbital (Phenobarbital 15 Mg Tablet) 15 mg PO BID [facility] Stop: 01/19/23 21:01 Phenobarbital (Phenobarbital 15 Mg Tablet) 15 mg PO DAILY [facility] Stop: 01/21/23 09:01 Propranolol HCl (Propranolol Hcl 10 Mg Tablet) 10 mg PO DAILY [facility]; Protocol Last Admin: 01/16/23 10:01 Dose: 10 mg Documented By: SAURAV Sodium Chloride (0.9 % Sodium Chloride Flush 3 Ml Syringe) 3 ml IVFLUSH QSHIFT [facility] Last Admin: 01/16/23 14:12 Dose: 3 ml Documented By: ILIA Labs 01/16/23 05:22 01/16/23 05:22 Labs: Laboratory Results - last 24 hr 01/16/23 05:22 MCV 86.0 MCH 28.3 MCHC 33.0 RDW 14.2 Plt Count 249 D MPV 11.3 Immature Gran % (Auto) 0.2 Neut % (Auto) 41.1 L Lymph % (Auto) 36.1 [place] % (Auto) 10.9 Eos % (Auto) 10.9 H Baso % (Auto) 0.8 Lymph # (Auto) 1.8 [place] # (Auto) 0.5 Eos # (Auto) 0.5 H Baso # (Auto) 0.0 Abs Immat Gran (auto) 0.01 Absolute Neuts (auto) 2.0 Absolute Nucleated RBC 0.000 Nucleated RBC % (auto) 0.0 Anion Gap 12 Estim Creat Clear Calc 116.4 Estimated GFR > 60 Random Glucose 100 Fasting Glucose 100 H Calcium 8.4 Total Bilirubin 0.6 AST 48 H ALT 24 Alkaline Phosphatase 78 Total Protein 6.3 L Albumin 3.3 L Assessment and Plan (1) Alcohol withdrawal: Status: Resolved Plan 42-year-old female with known history of alcohol abuse presented after 3 days of heavy drinking with withdrawal symptoms. Attempted to discharge however withdrawal became more severe and she was requested admission for [facility] protocol 1. Alcohol withdrawal -doing well -continue to observe on [facility] protocol -phenobarbital as per protocol -seizure precautions Full code Lovenox Patient requires ongoing hospitalization for phenobarb protocol to treat alcohol withdrawal Quality Stroke Does the patient have a stroke diagnosis?: No VTE Prior VTE?: No VTE Risk Level:: Medical - moderate - high VTE Device Contraindication: Treatment Not Indicated VTE Drug Contraindication: N/A - Med Ordered
[2023-01-16] MEDS: hydrOXYzine HCL 25 MG TABLET PO (19:31)
--- NOTE | 2023-01-16 20:30 | MHC.PIE ---
p; pt c/o pain 09/29 rt arm. note; hx recent hx rt arm fx and pt originally here with rt arm pain post fall. note; pt reports tylenol has no effect on pain at this time i; dr crouch notified. new order ultram prn for pain e; will cont to monitor
[2023-01-16] MEDS: traMADoL HCL 50 MG TABLET PO (20:33)
[2023-01-17] MEDS: traMADoL HCL 50 MG TABLET PO ×2 (03:10→11:44)
[2023-01-17 04:00] VITALS: BP 94/59; PULSE 85; RESP 18; TEMP 36.2; O2SAT 97
[2023-01-17 06:41] LABS: MANUAL DIFF FLAG NO
[2023-01-17 06:48] LABS: Basophils Percent Auto 0.5 % (0-2); Eosinophils Absolute Auto 1.4 X10*3/uL (0.0-0.4); Eosinophils Percent Auto 18.1 % (0-4); Hematocrit 34.6 % (37.0-47.0); Hemoglobin 11.7 g/dl (12.0-16.0); Imm Gran Abs Auto 0.03 X10*3/uL (0.00-0.03); Imm Gran Pct Auto 0.4 % (0.0-0.4); Lymphocytes Absolute Auto 2.3 X10*3/uL (1.2-4.9); Lymphocytes Percent Auto 31.1 % (20-40); Mean Corpuscular HGB Conc 33.8 g/dl (31.0-35.0); Mean Corpuscular Hemoglobin 29.2 pg (27.0-33.0); Mean Corpuscular Volume 86.3 fL (80.0-98.0); Mean Platelet Volume 11.3 fL (9.4-12.3); Monocytes Absolute Auto 0.7 X10*3/uL (0.1-1.2); Monocytes Percent Auto 9.7 % (2-11); Neutrophils Percent Auto 40.2 % (45-73); Platelet Count 269 X10*3/uL (160-400); Red Blood Count 4.01 X10*6/uL (4.20-5.50); Red Cell Distribution Width 14.1 % (11.0-16.0); White Blood Count 7.5 X10*3/uL (4.8-10.8)
[2023-01-17 07:01] LABS: Alanine Aminotransferase 24 U/L (0-31); Albumin Level 3.6 g/dL (3.5-5.0); Alkaline Phosphatase 87 U/L (39-117); Anion Gap 12 (12-20); Aspartate Amino Transferase 46 U/L (5-31); Bilirubin Total 0.4 mg/dL (0.0-1.0); Blood Urea Nitrogen 8 mg/dL (9-16); Calcium 8.5 mg/dL (8.4-10.2); Carbon Dioxide 20 mmol/L (22-29); Chloride 107 mmol/L (96-108); Estimated Glomerular Filt Rate > 60; Glucose Fasting 88 mg/dL (60-99); Glucose Random 88 mg/dL (60-115); Potassium 3.5 mmol/L (3.3-5.1); Sodium 135 mmol/L (135-145); Total Protein 6.6 g/dL (6.5-8.0)
[2023-01-17 07:38] VITALS: BP 125/87; PULSE 92; RESP 16; TEMP 36.1; O2SAT 98
[2023-01-17] MEDS: Propranolol HCL 10 MG TABLET PO (08:30)
[2023-01-17] MEDS: PHENobarbitaL 15 MG TABLET 45 MG PO (08:31)
[2023-01-17] MEDS: 0.9 % Sodium Chloride Flush 3 ML SYRINGE IVFLUSH (08:32)
[2023-01-17 11:59] VITALS: BP 109/75; PULSE 92; RESP 18; TEMP 36.3; O2SAT 97
[2023-01-17 13:18] VITALS: BP 109/75; PULSE 92; O2SAT 97
--- NOTE | 2023-01-17 14:59 | P.DS_ITS ---
DS: Providers Provider Date of Service: 01/17/23 Date of admission: 01/15/23 13:33 Date of discharge: 01/17/23 Primary care physician: Ollie Pulliam PA-C Consults: 01/15/23 06:42 Consult to Care Team Stat Comment: Reason for consultation: possible rehab. referral Attending physician on discharge: Berta Gutiérrez Discharging clinician: Berta Gutiérrez DS: Diagnosis Discharge Diagnosis (1) Alcohol withdrawal: Status: Resolved DS: Summary Hospital Course Hospital Course: Patient states she has been drinking over last several days secondary to situational depression. States she attempted to stop and developed tremors similar to past episodes. She denies seizures at this time. In the ER she initially responded to therapies however over time her CIWA scale increased necessitating the admission for phenobarb protocol. Hospital course: Patient came to the hospital because of alcohol withdrawal, fall: Started on phenobarb protocol seems to be improved significantly. Patient has recent upper arm fracture: Patient follows up with Orthopedics out patiently, also follows up outpatient with PT as per patient. PT saw-patient could able to transfer without significant assistance -continue outpatient Ortho and oupatient PT. patient already follows with outpatient PT. Discussed with Ortho: Nurse will apply the sling and patient is to follow up outpatient with Ortho. Patient was strongly advised to abstain from alcohol. Above management discussed with the patient she understand and in agreement with above plan.time spent 50 min. Time Attestation Discharge coordination time: Greater than 30 minutes Quality: Safe Use of Opioids Does Pt have an Active Cancer Diagnosis on the Problem List?: No Quality: Stroke Does the patient have a stroke diagnosis?: No Physical Exam Vital Signs: Vital Signs: Last Vital Signs Temp 97.3 F 01/17/23 11:59 Pulse 92 01/17/23 13:18 Resp 18 01/17/23 11:59 BP 109/75 01/17/23 13:18 Pulse Ox 97 01/17/23 13:18 O2 Del Method Room Air 01/17/23 11:59 BMI result Body Mass Index 21.9 Appearance: Alert.? Oriented X3.?. cvs: rrr, [id number] , no murmur res: clear to auscultation ,no rhonchii or wheezing abd: no rebound or guarding ,nt, bs present. ext pulses present , no cyanosis . Ms:right shoulder pain ,rom -seems somewhat improving neuro: axo3 , nonfocal. DS: Data Data Completed and Pending Completed studies during hospitalization [Text1]: Procedures Detoxification Services for Substance Abuse Treatment (12/07/22) Transfusion of Nonautologous Platelets into Peripheral Vein, Percutaneous Approach (12/07/22) Labs on day of discharge: Laboratory Results - last 24 hr 01/17/23 05:43 WBC 7.5 RBC 4.01 L Hgb 11.7 L Hct 34.6 L MCV 86.3 MCH 29.2 MCHC 33.8 RDW 14.1 Plt Count 269 MPV 11.3 Immature Gran % (Auto) 0.4 Neut % (Auto) 40.2 L Lymph % (Auto) 31.1 [place] % (Auto) 9.7 Eos % (Auto) 18.1 H Baso % (Auto) 0.5 Lymph # (Auto) 2.3 [place] # (Auto) 0.7 Eos # (Auto) 1.4 H Baso # (Auto) 0.0 Abs Immat Gran (auto) 0.03 Absolute Neuts (auto) 3.0 Absolute Nucleated RBC 0.000 Nucleated RBC % (auto) 0.0 Sodium 135 Potassium 3.5 Chloride 107 Carbon Dioxide 20 L Anion Gap 12 BUN 8 L Creatinine 0.55 Estim Creat Clear Calc 108.0 Estimated GFR > 60 Random Glucose 88 Fasting Glucose 88 Calcium 8.5 Total Bilirubin 0.4 AST 46 H ALT 24 Alkaline Phosphatase 87 Total Protein 6.6 Albumin 3.6 Imaging Chest x-ray: Radiologist's impression: ITS Impressions Shoulder X-Ray 01/14/23 21:29 IMPRESSION: Fracture of the greater tuberosity. Cervical Spine CT 01/14/23 21:46 IMPRESSION: 1. No acute intracranial pathology. 2. No CT evidence of acute cervical spine fracture or traumatic subluxation. 3. No significant change since prior study dated 12/07/2022. Head CT 01/14/23 21:46 IMPRESSION: 1. No acute intracranial pathology. 2. No CT evidence of acute cervical spine fracture or traumatic subluxation. 3. No significant change since prior study dated 12/07/2022. Discharge Plan Discharge Anticipated Discharge Date/Time: 01/17/23 11:15 Patient Disposition: Home, Self-Care Discharge Diagnosis: Alcohol withdrawal Referrals: Ollie Pulliam PA-C [Primary Care Provider] - 1 Week Genaro Cotter PA-C [Physician [employer] Operator] - 1 week Discharge Medications: Continued vitamin B complex Capsule 1 cap PO DAILY diclofenac sodium 1 % gel 2 g topical QID PRN (Reason: pain) clonidine HCl 0.1 mg tablet 0.1 mg PO BEDTIME PRN (Reason: Anxiety) tramadol 50 mg tablet 50 mg PO BID PRN (Reason: pain) propranolol 10 mg tablet 10 mg PO DAILY Protocol: Hold for SBP/HR < HOLD for SBP < : 90 HOLD for HR < : 60 hyoscyamine sulfate 0.125 mg tablet,disintegrating 0.125 mg PO QID PRN (Reason: Abdominal Pain) hydroxyzine HCl 25 mg tablet 25 mg PO BEDTIME 90 Days Qty: 90 1RF multivitamin Tablet 1 tab PO DAILY 90 Days Qty: 90 2RF naltrexone 50 mg tablet 50 mg PO DAILY 90 Days Qty: 90 1RF naproxen 500 mg tablet 500 mg PO BID 30 Days Qty: 60 3RF Discharge Orders: Discharge Order (Routine); Ordered 01/17/23 Ordered By: Berta Gutiérrez Diet: Advance to usual diet Activity on Discharge: As tolerated Stand Alone Forms: Patient Portal Discharge page Activity Restrictions/Additional Instructions: Care Plan Goals: Patient came to the hospital because of alcohol withdrawal, fall: Started on phenobarb protocol seems to be improved significantly. Patient has recent upper arm fracture: Patient follows up with Orthopedics out patiently, also follows up outpatient with PT as per patient. PT saw-patient could able to transfer without significant assistance -continue outpatient Ortho and oupatient PT. patient already follows with outpatient PT. Discussed with Ortho: Nurse will apply the sling and patient is to follow up outpatient with Ortho. Patient was strongly advised to abstain from alcohol. Above management discussed with the patient she understand and in agreement with above plan. Health Concerns: As above. Plan of Treatment: As above. Assessment: As above. Patient Instructions: Arm Fracture in Adults (ED), Abuse of Alcohol (ED), Alcohol Use Disorder (ED)
--- NOTE | 2023-01-17 15:29 | MHC.RECOVRN ---
Met with pt to follow up and provide support. Pt dc home today, will be transported by friend. Pt reports feeling good, a little anxious. Pt denies questions or concerns for t/w.
== END 2023-01-17 16:10 | disposition home or self-care (01) | DRG 775 ==
LOC: HO.ED 01-15 12:58 → HO.EDOVER 01-15 13:38 → HO.S3 01-16 12:43
PROVIDERS: Emergency Medicine Emergency Medical Services; Admitting Provider Hospitalist; Emergency Provider Emergency Medicine; PCP Physician Assistant; Visit Provider Internal Medicine
DX: F10.239 Alcohol dependence with withdrawal, unspecified (principal); F10.229 Alcohol dependence with intoxication, unspecified; F43.21 Adjustment disorder with depressed mood; Y90.8 Blood alcohol level of 240 mg/100 ml or more
CPT/HCPCS: 36415; 70450; 72125; 73030; 80048; 80053; 80307; 81001; 85025; 97161; 99285; J1650; J1885; J2060; J2560; J3411; J3475

== ENCOUNTER → 2023-01-15 13:33 | Outpatient (BNV) | payer OTHER, SELFPAY | PROVIDERS: Admitting Provider Hospitalist; Emergency Provider Emergency Medicine; PCP Physician Assistant; Visit Provider Hospitalist | DX: F10.930 Alcohol use, unspecified with withdrawal, uncomplicated (principal) | CPT/HCPCS: 99222; 99232; 99239 ==

== ENCOUNTER 2023-01-19 22:00 | Inpatient (IN) | payer OTHER, SELFPAY ==
--- NOTE | 2023-01-19 | ECG_ITS ---
Test Reason : ETOH Blood Pressure : / mmHG Vent. Rate : 123 BPM Atrial Rate : 123 BPM P-R Int : 128 ms QRS Dur : 082 ms QT Int : 322 ms P-R-T Axes : 064 104 042 degrees QTc Int : 460 ms Sinus tachycardia Rightward axis Borderline ECG When compared with ECG of 08-DEC-2022 09:59, No significant change was found Referred By: Generic ED Physician Electronically Signed By:AMADOU RAMOS MD
--- NOTE | ~2023-01-19 | CT_ITS ---
EXAMINATION: CT head/brain wo IV con CLINICAL INFORMATION: Reason for Exam found on ground COMPARISON: CT head without contrast 01/14/2023 TECHNIQUE: Contiguous axial imaging was performed from the skull base to vertex without intravenous contrast. Sagittal and coronal reformatted images were obtained. This CT examination was performed using dose optimization techniques as appropriate, variously including the following: * Automated exposure control * Adjustment of mA and/or kV according to patient size (this includes techniques or standardized protocols for targeted exams where dose is matched to indication/reason for exam; i.e. extremities or head) Use of iterative reconstruction technique DLP: 604 mGy-cm FINDINGS: No acute osseous or soft tissue abnormality. The mastoid air cells and visualized portions of the paranasal sinuses are well aerated. There is no evidence of acute intracranial hemorrhage or territorial infarction. No abnormal mass effect or midline shift is seen. Pepper to white matter differentiation is well preserved. No extra-axial fluid collections are identified. No hydrocephalus. No significant volume loss. There is no abnormal attenuation within the brain parenchyma. CT/CT head/brain wo IV con IMPRESSION: No acute intracranial abnormality including hemorrhage, mass effect, hydrocephalus, or acute territorial edematous infarction.
[2023-01-19 22:09] VITALS: BP 143/100; PULSE 100; O2SAT 97; BMI 23.4
[2023-01-19 22:17] VITALS: PULSE 123; RESP 20; O2SAT 95
[2023-01-19 23:01] LABS: MANUAL DIFF FLAG NO
[2023-01-19 23:05] LABS: Basophils Absolute Auto 0.1 X10*3/uL (0.0-0.2); Basophils Percent Auto 0.8 % (0-2); Eosinophils Absolute Auto 0.4 X10*3/uL (0.0-0.4); Eosinophils Percent Auto 4.8 % (0-4); Hematocrit 44.1 % (37.0-47.0); Hemoglobin 14.9 g/dl (12.0-16.0); Imm Gran Abs Auto 0.03 X10*3/uL (0.00-0.03); Imm Gran Pct Auto 0.3 % (0.0-0.4); Lymphocytes Absolute Auto 3.3 X10*3/uL (1.2-4.9); Lymphocytes Percent Auto 35.9 % (20-40); Mean Corpuscular HGB Conc 33.8 g/dl (31.0-35.0); Mean Corpuscular Hemoglobin 28.4 pg (27.0-33.0); Mean Corpuscular Volume 84.2 fL (80.0-98.0); Mean Platelet Volume 9.8 fL (9.4-12.3); Monocytes Absolute Auto 0.4 X10*3/uL (0.1-1.2); Monocytes Percent Auto 4.2 % (2-11); Platelet Count 405 X10*3/uL (160-400); Red Blood Count 5.24 X10*6/uL (4.20-5.50); Red Cell Distribution Width 14.6 % (11.0-16.0); White Blood Count 9.3 X10*3/uL (4.8-10.8)
--- NOTE | 2023-01-19 23:10 | PC.NURSE ---
pt arrived via ems. etoh use last drink approx 2129. pt axox4. ciwa 5. pt reports R. shoulder pain from known fracture; refuses to use shoulder sling given previous visits. pt calm/cooperative. pt changed into hospital gown belongings secured in pod locker. ekg obtained. labs drawn. iv established. seizure precautions in place as pt stated had hx of seizures during withdrawals. care team notified by Dr. Kenney. sinus tachy on monitor 115 bpm. call anguiano within reach.
[2023-01-19 23:20] LABS: Alanine Aminotransferase 26 U/L (0-31); Albumin Level 4.3 g/dL (3.5-5.0); Alkaline Phosphatase 112 U/L (39-117); Anion Gap 20 (12-20); Aspartate Amino Transferase 46 U/L (5-31); Bilirubin Total 0.2 mg/dL (0.0-1.0); Blood Urea Nitrogen 10 mg/dL (9-16); Calcium 8.9 mg/dL (8.4-10.2); Carbon Dioxide 20 mmol/L (22-29); Chloride 105 mmol/L (96-108); Creatinine Clr Calc Pharmacy 98.9; Estimated Glomerular Filt Rate > 60; Ethanol 370 mg/dL; Glucose Random 100 mg/dL (60-115); Potassium 3.7 mmol/L (3.3-5.1); Sodium 141 mmol/L (135-145); Total Protein 8.3 g/dL (6.5-8.0)
[2023-01-20] VITALS (7 sets, daily range): BP systolic 103–131; BP diastolic 69–92; PULSE 100–115; RESP 15–20; TEMP 36.6–37.1; O2SAT 95–98; BMI 21.4
--- NOTE | 2023-01-20 00:03 | ED_ITS ---
HPI - Alcohol General Chief Complaint: ETOH/Substance Use Stated Complaint: FOUND LAYING OUTSIDE, ETOH Time Seen by Provider: 01/19/23 23:15 Source: patient Mode of arrival: EMS History of Present Illness HPI narrative: 42-year-old female with history and clinical presentation consistent with longstanding history of alcohol dependence, current daily drinker, has a history of seizures during withdrawal and arrives via EMS when she was found down on the sidewalk, patient states that she tried to stop drinking but began feeling worse and worse and so went to the store and purchased alcohol that she then drank. Related Data Home Medications Medication Instructions Recorded Confirmed clonidine HCl 0.1 mg tablet 0.1 mg PO BEDTIME PRN Anxiety 01/15/23 01/15/23 diclofenac sodium 1 % topical gel 2 g topical QID PRN pain 01/15/23 01/15/23 hyoscyamine sulfate 0.125 mg 0.125 mg PO QID PRN Abdominal Pain 01/15/23 01/15/23 disintegrating tablet propranolol 10 mg tablet 10 mg PO DAILY 01/15/23 01/15/23 tramadol 50 mg tablet 50 mg PO BID PRN pain 01/15/23 01/15/23 vitamin B complex 1 cap PO DAILY 01/15/23 01/15/23 Previous Rx's Medication Instructions Recorded hydroxyzine HCl 25 mg tablet 25 mg PO BEDTIME 90 days #90 tabs 01/05/23 multivitamin 1 tab PO DAILY 90 days #90 tabs 01/05/23 naltrexone 50 mg tablet 50 mg PO DAILY 90 days #90 tabs 01/05/23 naproxen 500 mg tablet 500 mg PO BID 30 days #60 tabs 01/11/23 Allergies Allergy/AdvReac Type Severity Reaction Status Date / Time amoxicillin [From Augmentin] Allergy Intermediate Abdominal Verified 01/14/23 17:41 Pain clavulanic acid Allergy Intermediate Abdominal Verified 01/14/23 17:41 [From Augmentin] Pain gabapentin Allergy Intermediate Dizziness Verified 01/14/23 17:41 Sulfa (Sulfonamide Allergy Mild RASH Verified 01/14/23 17:41 Antibiotics) [SULFA (SULFONAMIDE ANTIBIOTICS)] magnesium AdvReac Diarrhea Verified 01/14/23 17:41 Review of Systems 2 Review of Systems: Pertinent positives and negatives as stated in HPI. PMFSH Past Medical History Source: nursing notes reviewed Medical History Closed fracture of greater tuberosity of right humerus Alcohol use disorder, moderate, dependence Pancytopenia Alcohol withdrawal seizure Alcohol use disorder, severe, dependence Diverticulitis Pelvic abscess in female Anxiety Alcohol abuse Surgical History No pertinent past surgical history Family History Family History Father Medical history unknown Mother Medical history unknown Paternal Grandfather Cancer Sister Epilepsy Daughter In good health Son In good health Other Substance use disorder Social History Social History Household Members: None Housing: Apartment Do you presently have visiting nurse or other home services: No Alcohol intake: current Alcohol intake frequency: 3 or more drinks per day Alcohol type: hard liquor Comment: REFUSING ALARM Patient Tobacco Use Status: Former Tobacco user Quit Date: 2006 Tobacco use type: Cigarette Smoked in Last 30 Days: No e-Cigarette/Vaping Use: Never Used Second Hand Smoke Exposure: No Use of substances other than those prescribed or required for medical reasons: No Advance Directives: Yes Advance Directives on File: Yes Advance Directives Date on File: 01/25/21 service: No Current occupational status: unemployed Current occupation: right hand dominant Cognitive needs: No Hearing needs: No Vision needs: No Physical Exam ED Vital Signs: Vital Signs - 24 hr 01/19/23 22:17 01/20/23 00:17 Pulse Rate 123 H 109 H Respiratory Rate 20 16 Pulse Oximetry 95 98 Oxygen Delivery Method Room Air Room Air BMI result Body Mass Index 23.4 VITAL SIGNS: Reviewed. GENERAL: Well developed, well nourished, in no acute distress. HEAD: Normocephalic/atraumatic EYES: PERRLA, EOMI EARS: Ext canals without abnormality NOSE: Nares patent bilateral OROPHARYNX: no oral lesions noted, posterior pharynx clear NECK: Supple, no adenopathy LUNGS: Normal breath sounds. No adventitious sounds or accessory muscle use. SpO2<98> CARDIOVASCULAR: Regular rate and rhythm without noted murmurs ABDOMEN: Soft, non-tender, non-distended with bowel sounds. MUSCULOSKELETAL: No tenderness, deformities, or effusions noted on gross inspection. EXTREMITIES: No cyanosis, clubbing or edema. RIGHT SHOULDER: Tenderness to palpation, known fracture, neurovascular intact distal SKIN: Inspection of the skin reveals no rashes NEUROLOGIC: Alert and oriented x 4. Strength and sensation to light touch were grossly intact x 4. Medical Decision Making Medical Decision Making [facility] Narrative: 42-year-old female with history and clinical presentation, DDX: Alcohol intoxication with significant alcohol withdrawal history of seizures, will rule out intracranial hemorrhage I reviewed all investigations and hematologic indices are grossly within normal limits without leukocytosis or left shift, no anemia and there is a slight elevation platelets. Chemistry indices are grossly within normal limits and there is no demonstrated BRENDON her electrolyte derangements. Liver enzyme values are not consistently abnormal other than chronic mild elevation of AST. BAL-370. CT head negative for intracranial hemorrhage or mass effect and otherwise my interpretation is in agreement with radiology's impression. Differential Diagnosis Differential Diagnoses: The differential diagnosis associated with the presentation includes Please see the discussion above Admission/Observation Consideration of admission/observation: Escalation of care including admission/observation considered Please see the discussion above Consult Healthcare Provider Management of the patient was discussed with: Hospitalist Please see the discussion above Lab Data [facility] Lab Attestation statement: I reviewed the patient's lab results. Please see the discussion above 01/19/23 22:56 01/19/23 22:56 Labs: Lab Results 01/19/23 Range/Units 22:56 WBC 9.3 (4.8-10.8) X10*3/uL RBC 5.24 D (4.20-5.50) X10*6/uL Hgb 14.9 D (12.0-16.0) g/dl Hct 44.1 D (37.0-47.0) % MCV 84.2 (80.0-98.0) fL MCH 28.4 (27.0-33.0) pg MCHC 33.8 (31.0-35.0) g/dl RDW 14.6 (11.0-16.0) % Plt Count 405 H D (160-400) X10*3/uL MPV 9.8 (9.4-12.3) fL Immature Gran % (Auto) 0.3 (0.0-0.4) % Neut % (Auto) 54.0 (45-73) % Lymph % (Auto) 35.9 (20-40) % [place] % (Auto) 4.2 (2-11) % Eos % (Auto) 4.8 H (0-4) % Baso % (Auto) 0.8 (0-2) % Lymph # (Auto) 3.3 (1.2-4.9) X10*3/uL [place] # (Auto) 0.4 (0.1-1.2) X10*3/uL Eos # (Auto) 0.4 (0.0-0.4) X10*3/uL Baso # (Auto) 0.1 (0.0-0.2) X10*3/uL Abs Immat Gran (auto) 0.03 (0.00-0.03) X10*3/uL Absolute Neuts (auto) 5.0 (2.0-8.3) x10*3/uL Absolute Nucleated RBC 0.000 (0.0-0.012) X10*3/uL Nucleated RBC % (auto) 0.0 (0.0-0.2) /100WBC Sodium 141 (135-145) mmol/L Potassium 3.7 (3.3-5.1) mmol/L Chloride 105 (96-108) mmol/L Carbon Dioxide 20 L (22-29) mmol/L Anion Gap 20 (12-20) BUN 10 (9-16) mg/dL Creatinine 0.60 (0.5-1.4) mg/dL Estim Creat Clear Calc 98.9 Estimated GFR > 60 Random Glucose 100 (60-115) mg/dL Calcium 8.9 (8.4-10.2) mg/dL Total Bilirubin 0.2 (0.0-1.0) mg/dL AST 46 H (5-31) U/L ALT 26 (0-31) U/L Alkaline Phosphatase 112 (39-117) U/L Total Protein 8.3 H (6.5-8.0) g/dL Albumin 4.3 (3.5-5.0) g/dL Ethyl Alcohol 370 H* mg/dL Independent Interpretation I performed an independent interpretation of an: EKG Interpretation: Sinus tachycardia, HR-123, no STEMI, CO/QRS/QTC is within normal limits. Radiology Impression Discussion of test interpretation with radiology: I have reviewed the radiologist's reading. Radiologist Impression: Please see the discussion above External Record Review External record reviewed: Outpatient record, Prior outpatient labs and Prior outpatient radiology Chronic Conditions Patient?s care impacted by: Other Alcohol dependency Critical Care Time Critical Care Time Critical Care Time: Yes Total Critical Care Time: 45 Attestation: I personally attest to this time spent taking care of the patient. Discharge Plan Discharge Clinical Impression: Alcohol intoxication, Alcohol withdrawal Patient Disposition: Admitted As Inpatient Prescriptions: No Action vitamin B complex Capsule 1 cap PO DAILY diclofenac sodium 1 % gel 2 g topical QID PRN (Reason: pain) clonidine HCl 0.1 mg tablet 0.1 mg PO BEDTIME PRN (Reason: Anxiety) tramadol 50 mg tablet 50 mg PO BID PRN (Reason: pain) propranolol 10 mg tablet 10 mg PO DAILY Protocol: Hold for SBP/HR < HOLD for SBP < : 90 HOLD for HR < : 60 hyoscyamine sulfate 0.125 mg tablet,disintegrating 0.125 mg PO QID PRN (Reason: Abdominal Pain) hydroxyzine HCl 25 mg tablet 25 mg PO BEDTIME 90 Days Qty: 90 1RF multivitamin Tablet 1 tab PO DAILY 90 Days Qty: 90 2RF naltrexone 50 mg tablet 50 mg PO DAILY 90 Days Qty: 90 1RF naproxen 500 mg tablet 500 mg PO BID 30 Days Qty: 60 3RF
[2023-01-20] MEDS: PHENobarbitaL sodium 130 MG/ML IM ONCE 250 MG IM (00:42)
--- NOTE | 2023-01-20 00:50 | PC.NURSE ---
initial dose of phenobarb administered pt states previously educated on phenobarb denies questions concerns at this time. med rec done at bedside with pt. call anguiano within reach.
--- NOTE | 2023-01-20 01:38 | PM.IMHP ---
History of Present Illness Date of Service: 01/20/23 Chief Complaint: found on floor 42F PMH etoh dependence, etoh fatty liver, mood disorder, was found down on sidewalk after trying to stop drinking. patient reports feeling dizzy, unwell, tremulous. no LOC. in ED started to have further withdrawal symptoms. Review of Systems Review of Systems: Yes all other systems are reviewed and are negative [facility] Medical History Closed fracture of greater tuberosity of right humerus Alcohol use disorder, moderate, dependence Pancytopenia Alcohol withdrawal seizure Alcohol use disorder, severe, dependence Diverticulitis Pelvic abscess in female Anxiety Alcohol abuse Family History Father Medical history unknown Mother Medical history unknown Paternal Grandfather Cancer Sister Epilepsy Daughter In good health Son In good health Other Substance use disorder Surgical History No pertinent past surgical history Social History Household Members: None Housing: Apartment Do you presently have visiting nurse or other home services: No Alcohol intake: current Alcohol intake frequency: 3 or more drinks per day Alcohol type: hard liquor Comment: REFUSING ALARM Patient Tobacco Use Status: Former Tobacco user Quit Date: 2006 Tobacco use type: Cigarette Smoked in Last 30 Days: No e-Cigarette/Vaping Use: Never Used Second Hand Smoke Exposure: No Use of substances other than those prescribed or required for medical reasons: No Advance Directives: Yes Advance Directives on File: Yes Advance Directives Date on File: 01/25/21 service: No Current occupational status: unemployed Current occupation: right hand dominant Cognitive needs: No Hearing needs: No Vision needs: No Meds Allergies Allergy/AdvReac Type Severity Reaction Status Date / Time amoxicillin [From Augmentin] Allergy Intermediate Abdominal Verified 01/14/23 17:41 Pain clavulanic acid Allergy Intermediate Abdominal Verified 01/14/23 17:41 [From Augmentin] Pain gabapentin Allergy Intermediate Dizziness Verified 01/14/23 17:41 Sulfa (Sulfonamide Allergy Mild RASH Verified 01/14/23 17:41 Antibiotics) [SULFA (SULFONAMIDE ANTIBIOTICS)] magnesium AdvReac Diarrhea Verified 01/14/23 17:41 Active Medications: Current Medications Clonidine HCl (Clonidine Hcl 0.1 Mg Tablet) 0.1 mg PO BEDTIME PRN; Protocol PRN Reason: Anxiety Hydroxyzine HCl (Hydroxyzine Hcl 25 Mg Tablet) 25 mg PO BEDTIME [facility] Multivitamins/Vitamin C (Multivitamin Tablet) tab PO DAILY [facility] Multivitamins/Vitamin C (Multivitamin Tablet) 1 tab PO DAILY [facility] Non-Formulary Medication (Hyoscyamine Sulfate) 0.125 mg PO QID PRN PRN Reason: Abdominal Pain Pharmacy Consult (Consult Rx Etoh Phenob Im/Po) 1 each MISCELLANE ONCE PRN; Protocol PRN Reason: Consult order Phenobarbital (Phenobarbital 15 Mg Tablet) 45 mg PO BID [facility]; Protocol Stop: 01/22/23 21:01 Phenobarbital (Phenobarbital 30 Mg Tablet) 30 mg PO BID [facility]; Protocol Stop: 01/24/23 21:01 Phenobarbital (Phenobarbital 30 Mg Tablet) 30 mg PO DAILY [facility]; Protocol Stop: 01/26/23 09:01 Phenobarbital Sodium (Phenobarbital Sodium 130 Mg/Ml Vial Im Q3hx2) 187 mg IM Q3H [facility]; Protocol Stop: 01/20/23 06:31 Propranolol HCl (Propranolol Hcl 10 Mg Tablet) 10 mg PO DAILY [facility]; Protocol Tramadol HCl (Tramadol Hcl 50 Mg Tablet) 50 mg PO BID PRN PRN Reason: m pain Home Medications Medication Instructions Recorded Confirmed Last Taken Type clonidine HCl 0.1 mg tablet 0.1 mg PO BEDTIME PRN Anxiety 01/15/23 01/20/23 Unknown History diclofenac sodium 1 % topical gel 2 g topical QID PRN pain 01/15/23 01/20/23 Unknown History hyoscyamine sulfate 0.125 mg 0.125 mg PO QID PRN Abdominal Pain 01/15/23 01/20/23 Unknown History disintegrating tablet propranolol 10 mg tablet 10 mg PO DAILY 01/15/23 01/20/23 Unknown History tramadol 50 mg tablet 50 mg PO BID PRN pain 01/15/23 01/20/23 Unknown History vitamin B complex 1 cap PO DAILY 01/15/23 01/20/23 Unknown History Physical Exam Vital Signs and Narrative: Vital Signs: Last Vital Signs Pulse 103 H 01/20/23 00:44 Resp 16 01/20/23 00:17 BP 125/78 01/20/23 00:44 Pulse Ox 98 01/20/23 00:17 O2 Del Method Room Air 01/20/23 00:17 BMI result Body Mass Index 23.4 General: AO X 3, tremulous, teary Resp: CTA bilateral, no accessory muscles used CVS: S1,S2,RRR GI: soft, non tender, non distended Neuro: motor grossly intact, alert Psych: appropriate affect, appropriate insight Results Labs 01/19/23 22:56 01/19/23 22:56 Labs: Laboratory Results - last 24 hr 01/19/23 22:56 MCV 84.2 MCH 28.4 MCHC 33.8 RDW 14.6 Plt Count 405 H D MPV 9.8 Immature Gran % (Auto) 0.3 Neut % (Auto) 54.0 Lymph % (Auto) 35.9 [place] % (Auto) 4.2 Eos % (Auto) 4.8 H Baso % (Auto) 0.8 Lymph # (Auto) 3.3 [place] # (Auto) 0.4 Eos # (Auto) 0.4 Baso # (Auto) 0.1 Abs Immat Gran (auto) 0.03 Absolute Neuts (auto) 5.0 Absolute Nucleated RBC 0.000 Nucleated RBC % (auto) 0.0 Anion Gap 20 Estim Creat Clear Calc 98.9 Estimated GFR > 60 Random Glucose 100 Calcium 8.9 Total Bilirubin 0.2 AST 46 H ALT 26 Alkaline Phosphatase 112 Total Protein 8.3 H Albumin 4.3 Ethyl Alcohol 370 H* Imaging Radiologist's Impressions: Impressions Head CT 01/19/23 23:30 IMPRESSION: No acute intracranial abnormality including hemorrhage, mass effect, hydrocephalus, or acute territorial edematous infarction. Assessment and Plan (1) Alcohol withdrawal: Status: Acute Plan 42F PMH etoh dependence, etoh fatty liver, mood disorder presented with etoh withdrawal etoh dependence with withdrawal phenobarb, [facility] care team eval etoh fatty liver abstinence mood disorder clonidine, atarax dvt prophylaxis- lovenox full code patient with withdrawal, will need phenobarb for atleast 2 midnights Quality Stroke Does the patient have a stroke diagnosis?: No VTE Prior VTE?: No VTE Risk Level:: Medical - moderate - high VTE Device Contraindication: Treatment Not Indicated VTE Drug Contraindication: N/A - Med Ordered
[2023-01-20] MEDS: Enoxaparin Sodium 40 MG/0.4 ML SYRINGE SUBCUT ×2 (02:15→20:55)
[2023-01-20] MEDS: traMADoL HCL 50 MG TABLET PO ×3 (02:15→19:08)
[2023-01-20] MEDS: cloNIDine HCL 0.1 MG TABLET PO ×2 (02:16→23:46)
--- NOTE | 2023-01-20 02:25 | PC.NURSE ---
pt requested prn clonidine and tramodol for pain/anxiety. pt medicated per apr. resp even and unlabored sats 97% on ra. call anguiano within reach.
[2023-01-20] MEDS: PHENobarbitaL sodium 130 MG/ML VIAL IM Q3Hx2 187 MG IM ×2 (03:58→06:37)
--- NOTE | 2023-01-20 04:11 | PC.NURSE ---
pt bp below parameters per apr phenobarb. Dr. Fuentes notified. to continue with administration per Dr. Fuentes. pt medicated per apr.
--- NOTE | 2023-01-20 06:35 | PHA.MEDREC ---
Pharmacy Consult ? Medication Reconciliation Pharmacy has completed the medication reconciliation. COMPLETED BY RN REVIEWED BY PHARMACY
[2023-01-20] MEDS: Multivitamin TABLET 1 TAB PO (08:36)
[2023-01-20] MEDS: PHENobarbitaL 15 MG TABLET 45 MG PO ×2 (08:36→20:56)
[2023-01-20] MEDS: 0.9 % Sodium Chloride Flush 3 ML SYRINGE IVFLUSH ×2 (08:37→20:56)
[2023-01-20] MEDS: Propranolol HCL 10 MG TABLET PO (08:37)
--- NOTE | 2023-01-20 10:02 | PC.NURSE ---
PT IS A/O X 3 NO SOB/RICKY NOTED SPEAKS IN FULL SENTENCES. HX R HUMERUS FX (12/02/22) WITH R IMMOBILIZING SLING. HEPLOCK #22 TO L AC. PT REQUESTING ANTI-DIARRHEAL MED STATED THAT MY STOMACH FEELS BUBBLY . AWARE PT IS ADMITTED TO HOSP.
--- NOTE | 2023-01-20 10:06 | PC.NURSE ---
PT STATES THAT SHE IS UNABLE TO HAVE SOMEONE/ANYONE BRING IN HER HYOSCYAMINE SULFATE MED. PT DENIES ANY SI/HI.
--- NOTE | 2023-01-20 10:49 | PM.EVENT ---
Event Note Date of Service: 01/20/23 Event Note: Pt seen/examined, labs, vitals, meds reviewed. She is readmitted within a week of discharge for alcohol withdrawal and here yet again for alcohol withdrawal, and has been drinking since . Given repeat admission for the same thing, I think section 35 should be considered. Restart propranoll for tachycardia. O/w A/P per H and p from this morning Time Spent With Patient Time: Total time managing care of this patient today ____ minutes.
[2023-01-20] MEDS: Loperamide HCl 2 MG CAPSULE PO (11:41)
[2023-01-20 12:01] LABS: Amphetamine Screen Urine Not Detected (Not Detect); Barbiturates, Urine POSITIVE (Not Detect); Benzodiazepines Screen Urine POSITIVE (Not Detect); Cannabinoid Screen Urine Not Detected (Not Detect); Cocaine Screen Urine Not Detected (Not Detect); Fentanyl, urine Not Detected (Not Detect); Opiate Screen Urine Not Detected (Not Detect); Phencyclidine Screen Urine Not Detected (Not Detect)
--- NOTE | 2023-01-20 14:26 | PM.EVENT ---
Event Note Date of Service: 01/20/23 Event Note: feeling better, no tremors, HR has come donwn since back on Propranol, at this point able to go to med/surg Time Spent With Patient Time: Total time managing care of this patient today ____ minutes.
[2023-01-20] MEDS: ondansetron HCL 4 MG/2 ML VIAL IVPUSH (15:38)
--- NOTE | 2023-01-20 16:05 | MHC.CM.PN ---
PT REPORTS SHE LIVES ALONE AND IS INDEPENDENT WITH CARE SHE DENIES USE OF DME OR HOME SERVICES SHE HAS A HCP ON FILE PCP: JEYSON QUIGLEY PT REPORTS SHE IS LOOKING FOR EMPLOYMENT AND HAS TO MOVE SOON, HOWEVER SHE DECLINED RESOURCES STATING SHE ALREADY HAS THEM FROM A RECENT ED VISIT DCP: HOME NO SERVICES PT EXPECTS TO HAVE A RIDE HOWEVER IS AWARE CM CAN ASSIST IF NEEDED
--- NOTE | 2023-01-20 16:15 | MHC.RECOVRN ---
Recovery Support note: 42 year old Armenian speaking female presented to [facility] ED via EMS following being found on the ground outside and unable to get up. Pt is medically admitted for ETOH detox.? She has a h/o seizures during W/D.? T/W, along with Recovery Support Nurse Maritza, met with pt to discuss alcohol use. Pt. is not displaying any W/D sx and last CIWA was a 2. Pt reports that she started drinking alcohol regularly about four years ago.? She was drinking a sleeve a day.? She reports being in 2 section 35 detoxes and one voluntary detoxes.? She has not, however, been able to sustain abstinence following her detox stays.? Pt was most recently D/C from [facility] on 01/17 following a medical admission for W/D. She reports that she went home and drank the alcohol she had left at home on night.? Yesterday she went over to a friends and ended up drinking 4 mixed drinks and numerous shots of whiskey. Once she left she was walking and fell and was unable to get herself back up.? EMS was called and pt. brought to ER.? Resources for treatment and treatment options were discussed with pt. and she did express the desire to participate in IOP again but feels she cannot do so right now as she is in the process of losing her housing. We also discussed the progression of her drinking and the increased incidents of self- injury it is causing.? Pt voiced her own concern with this also but is not willing to actively seek treatment at this time.? Case reviewed with Kerrie Mulligan.
--- NOTE | 2023-01-20 19:56 | P.EN_ITS ---
Event Note Date of Service: 01/20/23 Event Note: Addiction consult placed for patine with AUD Seen by sales service executive, patient declining any intervention ED providers considering filing Section 35 petition given increase in ED visits related to worsening alcohol use and associated medical issues including withdrawal with history of seizure, numerous falls resulting in fractures. Currently inpatient. sales service executive to follow up over the weekend. Unclear at this time if Section 35 petition will be pursued while medically admitted. Time Spent With Patient Time: Total time managing care of this patient today ____ minutes.
[2023-01-20] MEDS: hydrOXYzine HCL 25 MG TABLET PO (20:56)
[2023-01-21 03:12] VITALS: BP 100/72; PULSE 81; RESP 18; TEMP 36.7; O2SAT 96
[2023-01-21 07:19] LABS: Hematocrit 35.5 % (37.0-47.0); Hemoglobin 11.9 g/dl (12.0-16.0); Mean Corpuscular HGB Conc 33.5 g/dl (31.0-35.0); Mean Corpuscular Volume 83.5 fL (80.0-98.0); Mean Platelet Volume 9.7 fL (9.4-12.3); Platelet Count 272 X10*3/uL (160-400); Red Blood Count 4.25 X10*6/uL (4.20-5.50); Red Cell Distribution Width 14.3 % (11.0-16.0); White Blood Count 7.4 X10*3/uL (4.8-10.8)
[2023-01-21 07:37] LABS: Anion Gap 13 (12-20); Blood Urea Nitrogen 6 mg/dL (9-16); Calcium 9.2 mg/dL (8.4-10.2); Carbon Dioxide 26 mmol/L (22-29); Chloride 100 mmol/L (96-108); Creatinine Clr Calc Pharmacy 109.9; Estimated Glomerular Filt Rate > 60; Glucose Fasting 100 mg/dL (60-99); Potassium 3.4 mmol/L (3.3-5.1); Sodium 136 mmol/L (135-145)
[2023-01-21 07:48] VITALS: BP 107/76; PULSE 69; RESP 18; TEMP 36.6; O2SAT 97
[2023-01-21] MEDS: 0.9 % Sodium Chloride Flush 3 ML SYRINGE IVFLUSH (08:05)
[2023-01-21] MEDS: ondansetron HCL 4 MG/2 ML VIAL IVPUSH (08:06)
[2023-01-21] MEDS: Multivitamin TABLET 1 TAB PO (08:07)
[2023-01-21] MEDS: traMADoL HCL 50 MG TABLET PO (08:07)
[2023-01-21] MEDS: PHENobarbitaL 15 MG TABLET 45 MG PO (08:08)
[2023-01-21] MEDS: Propranolol HCL 10 MG TABLET PO (08:09)
[2023-01-21] MEDS: Loperamide HCl 2 MG CAPSULE PO (09:29)
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
--- NOTE | 2023-01-21 10:45 | MHC.CM.PN ---
Patient has been medically cleared for dc to home today, self care.
--- NOTE | 2023-01-21 11:40 | MHC.RECOVRN ---
T/W went to check on pt status this AM. Pt denies any W/D sx besides diarrhea which she reports is a chronic condition and she does not have her prescribed medicaiton with her. Issue currently being addressed with PRN meds. Pt is ready to be D/C. T/W discussed with her her path for sobriety in the past along with what worked and what didn't work. 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 Pt reports she had been on Naltrexone in the past but did not see how it helps'. T/W explained the action of Naltrexone to pt and she verbalized understanding and reports she will go back on once off pain medicaiton for her arm injury. T/W reviewed dangers of taking opiates with Naltrexone and pt. verbalized understanding. T/W offered pt. resources for IOP/CSS and ATS. Also encouraged pt. to call our office for further MAT f/u. Pt agreed to a F/U call from us on Mon after she reviews the literature i gave her to answer any questions or offer assistance. Information passed on to AMMON Salas for F/U on Mon.
== END 2023-01-21 14:00 | disposition home or self-care (01) | DRG 775 ==
LOC: HO.ED 01-20 00:33 → HO.EDOVER 01-20 01:40 → HO.IMC 01-20 19:14
PROVIDERS: Admitting Provider Internal Medicine; Emergency Provider Student in an Organized Health Care Education/Training Program; PCP Physician Assistant; Visit Provider Internal Medicine
DX: F10.239 Alcohol dependence with withdrawal, unspecified (principal); F10.229 Alcohol dependence with intoxication, unspecified; K70.0 Alcoholic fatty liver; Y90.8 Blood alcohol level of 240 mg/100 ml or more; F39 Unspecified mood [affective] disorder; Z87.891 Personal history of nicotine dependence; Z79.899 Other long term (current) drug therapy
CPT/HCPCS: 36415; 70450; 80048; 80053; 80307; 83735; 85025; 85027; 93005; 99285; J1650; J2405; J2560

== ENCOUNTER → 2023-01-19 22:45 | Outpatient (BNV) | payer OTHER, SELFPAY | PROVIDERS: Admitting Provider Internal Medicine; Emergency Provider Student in an Organized Health Care Education/Training Program; PCP Physician Assistant; Visit Provider Internal Medicine Cardiovascular Disease | DX: R00.0 Tachycardia, unspecified (principal); F10.939 Alcohol use, unspecified with withdrawal, unspecified | CPT/HCPCS: 93010 ==

== ENCOUNTER → 2023-01-20 01:37 | Outpatient (BNV) | payer OTHER, SELFPAY | PROVIDERS: Admitting Provider Internal Medicine; Emergency Provider Student in an Organized Health Care Education/Training Program; PCP Physician Assistant; Visit Provider Internal Medicine | DX: F10.939 Alcohol use, unspecified with withdrawal, unspecified (principal) | CPT/HCPCS: 99223; 99239; 99499 ==

== ENCOUNTER → 2023-02-22 09:04 | Outpatient (BNVA) | payer OTHER, SELFPAY | PROVIDERS: PCP Physician Assistant; Visit Provider Orthopaedic Surgery ==

== ENCOUNTER 2023-02-23 10:45 | Outpatient (REF) | payer OTHER, SELFPAY ==
--- NOTE | ~2023-02-23 | XR_ITS ---
EXAMINATION: XR SHOULDER, RIGHT CLINICAL INFORMATION: Pain. COMPARISON: 01/14/2023 right shoulder TECHNIQUE: Three views of the right shoulder. FINDINGS: Acromioclavicular and glenohumeral alignment maintained. No abnormal soft tissue calcifications are identified adjacent to the humeral head. Previously identified fracture of the greater tuberosity with minimal displacement is difficult to appreciate, characteristic of some interval healing. XR/XR shoulder RT min 2V IMPRESSION: Previously identified fracture of the greater tuberosity with minimal displacement is difficult to appreciate, characteristic of some interval healing.
== END 2023-02-23 10:46 | disposition home or self-care (01) ==
LOC: HO.HOSX 10:45
PROVIDERS: Visit Provider Physician Assistant
DX: S42.251D Displaced fracture of greater tuberosity of right humerus, subsequent encounter for fracture with routine healing (principal); W19.XXXD Unspecified fall, subsequent encounter
CPT/HCPCS: 73030; 99212

== ENCOUNTER 2023-02-23 10:52 | Outpatient (AMB) | payer OTHER, SELFPAY ==
--- NOTE | 2023-02-23 11:26 | MHC.OFFVIS ---
Intake Intake Visit Reasons: OV-nondisplaced fX of upper end of right humerus Intake Note: Susan campa 42 year old right hand dominant female presents today for an ER follow up of right humerus fx, DOI 12/07/22. She states performing her exercises at home which she notices some improvements with her ROM. However she is not able to raise her arm outward. Allergies amoxicillin [From Augmentin] Allergy (Intermediate, Verified 02/23/23 11:30) Abdominal Pain clavulanic acid [From Augmentin] Allergy (Intermediate, Verified 02/23/23 11:30) Abdominal Pain gabapentin Allergy (Intermediate, Verified 02/23/23 11:30) Dizziness Sulfa (Sulfonamide Antibiotics) [SULFA (SULFONAMIDE ANTIBIOTICS)] Allergy (Mild, Verified 02/23/23 11:30) RASH magnesium Adverse Reaction (Verified 02/23/23 11:30) Diarrhea HPI OV-nondisplaced fX of upper end of right humerus HPI Details 42-year-old right hand dominant female who presents in the office today for a follow up of a right humerus fracture, which occurred on 12/07/22 status post a fall on her right shoulder. She was last seen in the office by Genaro Cotter PA-C on 01/11/2023 where it was recommended for her to attend physical therapy. She was also given a handout for at home exercises. She was also given a prescription for Naproxen 500 mg PO BID PRN. While in the office today she states the shoulder is doing better. She states she has been working on her at home exercises which she noticed has helped with her ROM. She states she is unable to raise her arm outward. She states she has been lifting a little amount of weight. She states she has a goal of playing softball at the end of 04/2023. [facility] Medical History Closed fracture of greater tuberosity of right humerus Alcohol use disorder, moderate, dependence Pancytopenia Alcohol withdrawal seizure Alcohol use disorder, severe, dependence Diverticulitis Pelvic abscess in female Anxiety Alcohol abuse Surgical History No pertinent past surgical history Family History Father Medical history unknown Mother Medical history unknown Paternal Grandfather Cancer Sister Epilepsy Daughter In good health Son In good health Other Substance use disorder Social History Household Members: None Housing: Apartment Do you presently have visiting nurse or other home services: No Alcohol intake: current Alcohol intake frequency: 3 or more drinks per day Alcohol type: hard liquor Comment: REFUSING ALARM Patient Tobacco Use Status: Former Tobacco user Quit Date: 2006 Tobacco use type: Cigarette e-Cigarette/Vaping Use: Never Used Second Hand Smoke Exposure: No Substance Use Type: Marijuana Advance Directives Date on File: 01/25/21 service: No Current occupational status: unemployed Current occupation: right hand dominant Cognitive needs: No Hearing needs: No Vision needs: No Female Reproductive History Menstrual Age of Menarche: 11 Review of Systems Const All systems reviewed & are unremarkable except as noted in HPI and below Physical Exam Const General: cooperative, healthy appearing and no acute distress Resp Effort & Inspection: normal respiratory effort and able to speak in complete sentences Cardio Rate: regular rate Peripheral pulses: Peripheral pulses 2+ throughout GI Palpation (GI): Soft to palpation Skin Lesions: no lesions Rashes: no rashes Extrem Other: Right shoulder: Forward flexion lacking 20 degrees. Abduction to 60 degrees. External rotation to neutral. NVI. Assessment & Plan Assessment & Plan (1) Fracture of greater tuberosity of right humerus: Code(s): S42.251A - Displaced fracture of greater tuberosity of right humerus, initial encounter for closed fracture Qualifiers: Encounter type: initial encounter Fracture alignment: nondisplaced Fracture type: closed Qualified Code(s): S42.254A - Nondisplaced fracture of greater tuberosity of right humerus, initial encounter for closed fracture Plan Ms. Vanessa is a 42-year-old right hand dominant female who presents in the office today for a follow up of a right humerus fracture, which occurred on 12/07/22 status post a fall on her right shoulder. She was last seen in the office by Genaro Cotter PA-C on 01/11/2023 where it was recommended for her to attend physical therapy. She was also given a handout for at home exercises. She was also given a prescription for Naproxen 500 mg PO BID PRN. While in the office today she states the shoulder is doing better. She states she has been working on her at home exercises which she noticed has helped with her ROM. She states she is unable to raise her arm outward. She states she has been lifting a little amount of weight. She states she has a goal of playing softball at the end of 04/2023. I would like for the patient to return to physical therapy for 6 weeks to work on her ROM. We discussed lifting weight it to tolerance at this time. Follow up will be in 6 weeks for a ROM check, or sooner if needed. X-rays of the right shoulder which were obtained while in the office today and were reviewed by me, Ambika Dejesus PA-C, revealed a healed of a right greater tuberosity fracture right shoulder. Orders: Orders XR shoulder RT min 2V Today M25.519 - Pain in unspecified shoulder Patient Instructions: Scribed for Ambika Dejesus PA-C by Amrita Jane biomedical specialist, on 02/23/2023 at 10:56 am, EST. Coding Level of Care Code Global (04346) Diagnoses Closed nondisplaced fracture of greater tuberosity of right humerus, initial encounter S42.254A Encounter type: initial encounter Fracture alignment: nondisplaced Fracture type: closed
== END 2023-02-23 12:05 | disposition home or self-care (01) ==
PROVIDERS: PCP Physician Assistant; Visit Provider Physician Assistant
DX: S42.254A Nondisplaced fracture of greater tuberosity of right humerus, initial encounter for closed fracture (principal)
CPT/HCPCS: 99213

== ENCOUNTER 2023-03-09 02:29 | Emergency (ER) | payer OTHER, SELFPAY ==
--- NOTE | ~2023-03-09 | XR_ITS ---
EXAMINATION: XR SOFT TISSUE NECK CLINICAL INDICATION: Neck pain COMPARISON: CT cervical spine 01/14/2023 TECHNIQUE: 2 views of the soft tissue neck were obtained. FINDINGS: Soft tissue films of the neck demonstrate a normal larynx, pharynx and upper trachea. No soft tissue swelling or opaque foreign body is demonstrated. Vertebral body heights are well-maintained. There is some minimal disc space narrowing seen at C7-T1 and possibly T1-T2. Some minimal spondylitic endplate changes are seen with some anterior superior endplate osteophytes at C5-C6. XR/XR soft tissue neck IMPRESSION: No soft tissue swelling or opaque foreign body is seen. Some minimal degenerative changes as described above.
[2023-03-09 02:33] VITALS: BP 137/97; PULSE 100; O2SAT 98
[2023-03-09 02:36] VITALS: BMI 23.7
[2023-03-09 02:39] VITALS: BP 137/86; PULSE 97; RESP 104; TEMP 36.9; O2SAT 98
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
--- NOTE | 2023-03-09 03:06 | PC.NURSE ---
pt changed into behavioral health gown, belongings charted and secured. pt calm and cooperative, denies si/hi, aox4, verbalized understanding of hospital process. handoff given to mauri marie
--- NOTE | 2023-03-09 03:11 | MHC.EDTECH ---
patient changed over into pod attire all patient belongings are in pod closet
[2023-03-09 04:01] LABS: Basophils Percent Auto 0.3 % (0-2); Eosinophils Absolute Auto 0.5 X10*3/uL (0.0-0.4); Eosinophils Percent Auto 6.4 % (0-4); Hematocrit 31.1 % (37.0-47.0); Hemoglobin 10.5 g/dl (12.0-16.0); Imm Gran Abs Auto 0.02 X10*3/uL (0.00-0.03); Imm Gran Pct Auto 0.3 % (0.0-0.4); Lymphocytes Absolute Auto 1.1 X10*3/uL (1.2-4.9); Lymphocytes Percent Auto 13.6 % (20-40); Mean Corpuscular HGB Conc 33.8 g/dl (31.0-35.0); Mean Corpuscular Volume 82.9 fL (80.0-98.0); Mean Platelet Volume 10.2 fL (9.4-12.3); Monocytes Absolute Auto 0.7 X10*3/uL (0.1-1.2); Monocytes Percent Auto 8.7 % (2-11); Neutrophils Absolute Auto 5.6 x10*3/uL (2.0-8.3); Neutrophils Percent Auto 70.7 % (45-73); Platelet Count 152 X10*3/uL (160-400); Red Blood Count 3.75 X10*6/uL (4.20-5.50); Red Cell Distribution Width 13.7 % (11.0-16.0)
[2023-03-09 04:02] LABS: MANUAL DIFF FLAG NO
[2023-03-09 04:15] LABS: Alanine Aminotransferase 32 U/L (0-31); Albumin Level 3.5 g/dL (3.5-5.0); Alkaline Phosphatase 126 U/L (39-117); Anion Gap 16 (12-20); Aspartate Amino Transferase 63 U/L (5-31); Bilirubin Direct 0.3 mg/dL (0.0-0.5); Bilirubin Total 0.8 mg/dL (0.0-1.0); Blood Urea Nitrogen 5 mg/dL (9-16); Calcium 8.9 mg/dL (8.4-10.2); Carbon Dioxide 27 mmol/L (22-29); Chloride 98 mmol/L (96-108); Creatinine Clr Calc Pharmacy 143.7; Estimated Glomerular Filt Rate > 60; Ethanol < 10 mg/dL; Glucose Random 113 mg/dL (60-115); Potassium 3.1 mmol/L (3.3-5.1); Sodium 138 mmol/L (135-145); Total Protein 6.5 g/dL (6.5-8.0)
[2023-03-09 04:56] LABS: Appearance Urine Clear; Color Urine Yellow; Glucose Urine UA Negative (Negative); Leukocyte Esterase Urine Small (1+) (Negative); Nitrite Urine Negative (Negative); Specific Gravity - Urine <= 1.005 (1.005-1.025); UMIC TRIGGER UACC YES; Urine Blood Negative (Negative); Urine Ketones Trace mg/dL (Negative); Urine Protein Negative (Neg-Trace)
[2023-03-09 05:05] LABS: Amphetamine Screen Urine Not Detected (Not Detect); Barbiturates, Urine Not Detected (Not Detect); Benzodiazepines Screen Urine Not Detected (Not Detect); Cannabinoid Screen Urine Not Detected (Not Detect); Cocaine Screen Urine POSITIVE (Not Detect); Fentanyl, urine Not Detected (Not Detect); Opiate Screen Urine Not Detected (Not Detect); Phencyclidine Screen Urine Not Detected (Not Detect)
[2023-03-09 05:08] LABS: Bacteria Urine None Seen (None Seen); Hyaline Casts Urine 0-2 /LPF (0-2); RBC Urine 0-2 /HPF (0-2); Squamous Epithelial Cell Urine 0-2 /HPF (0-2); UACC Culture Trigger YES; WBC Urine 0-5 /HPF (0-5)
[2023-03-09 06:36] VITALS: BP 102/60; PULSE 99; RESP 17; TEMP 36.7; O2SAT 95
[2023-03-09 08:17] VITALS: BP 96/64; PULSE 106; RESP 14; O2SAT 96
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
[2023-03-09 08:34] VITALS: BP 107/63; PULSE 95; RESP 14; O2SAT 96
[2023-03-09] MEDS: Magnesium Oxide 400 MG TABLET 800 MG PO (09:32)
[2023-03-09] MEDS: Potassium Chloride Packet 20 MEQ PACKET 40 MEQ PO (09:32)
[2023-03-09] MEDS: Acetaminophen 325 MG TABLET 650 MG PO (09:32)
[2023-03-09] MEDS: LORazepam 1 MG TABLET 2 MG PO ×2 (09:52→17:27)
[2023-03-09 10:36] VITALS: BP 110/65; PULSE 93; RESP 14; O2SAT 97
--- NOTE | 2023-03-09 10:39 | PC.NURSE ---
pt reports hallucinations that began last night. a&ox4. reports seeing bugs/flys on the wall of ED room. medicated with ativan per MAR for alcohol withdrawals.
--- NOTE | 2023-03-09 10:40 | MHC.RECOVRN ---
Met with pt in ED12 to check in, pt familiar with t/w from previous consults. Pt had presented to the ED after experiencing visual hallucinations at home. Pt sitting in bed, awake, alert, easily engages in conversation, calm. Pt appears to be oriented, remembers t/w, knows where she currently is and why. Pt reports she was recently at [facility] for 30 days after mother [facility]. Pt reports she was discharged from the program on 02/21. Pt reports her roommate at [facility] is from this area, they were discharged on the same day and transported home at the same time. Pt reports on Monday, 03/03, pt spent the night at this person's house and was offered a naproxen. Pt reports she took the tablet and does not recall anything after that, only waking up in the morning. Per pt, the woman stated Your chest might be sore, we had to do the sternal rub and give you Narcan. You were out. Pt reports this was the only substance ingested since dc from [facility], other than alcohol. Informed pt of UDS +cocaine, pt surprised and upset, states I haven't done that since I was 18. Pt does not have a hx of OUD or StUD. Pt reports alcohol use daily since 02/25. Pt alternates nips and wine; one day will be 5-6 nips and the next will be four 6 ounce bottles of wine. Pt reports last alcohol use was yesterday, last little sip of wine at 11:30PM. Pt reports hallucinations were very frightening. Pt reports a man in a cowboy hat came up behind her and screamed like a monster in my ear. Pt also reports seeing and speaking to a woman who said things like I can't tell you when or how you will . Pt reports seeing a boy locked in a car after she ran outside of the house and did not know it was a hallucination until EMS informed her there was not a boy in the car. Pt reports she tried calling her mom multiple times last night, however, the line kept disconnecting. Currently, pt feels safe at the hospital. Reports she is scared to return home, however, she would like to. Pt reports she is currently experiencing visual hallucinations such as spiders coming out of the tv and flies in groups flying at my face. Pt reports she is beginning to experience alcohol withdrawal symptoms including anxiety, upset stomach, and headache. Discussed with RN, pt to receive available Ativan. Will continue to follow. Discussed with Kerrie Mulligan APRN, as well as ED provider.
--- NOTE | 2023-03-09 11:22 | PC.NURSE ---
pt reports that they are less anxious. still reports seeing fruit flies in room.
--- NOTE | 2023-03-09 12:40 | PC.NURSE ---
patient brought over to pod, dressed in hospital attire. patient is respectful, calm and cooperative. patient has been walking around pod with steady gait, likes to be around others n the community room watching movie.
--- NOTE | 2023-03-09 13:47 | P.CNPS_ITS ---
History of Present Illness Date of Service: 03/09/2023 Chief Complaint: ETOH Reason for Consult: psychosis Requesting physician: Doris Kenney Discussed with referring provider: Yes Sources of Information: patient interviewed, chart reviewed and crisis/core team assessment reviewed HPI Narrative: Ms. Vanessa is a 42 year-old woman with hx of alcohol use disorder who is known to [facility] through previous admission mostly for alcohol withdrawal (typically goes through phenobarb protocol). Pt came to ED reporting seeing fruit flies, thinking someone was hiding behind her couch asking her son to help her find this person but states son did not see anyone. She also reported hearing voices of male. UTox was positive for cocaine, which not typical drug of choice. BAL was negative. Pt unclear as to when was last drink (reported hours prior to coming to ED but BAL wouldn't have been neg). Pt seen right after she had received ativan. Pt told this teletypewriter installer she was looking for a man that she could find and realized was not there was son was telling her he couldn't see him. She also reports hearing voices, not at the moment when she was meeting with this teletypewriter installer, but at the same time she is having difficulty keeping her eyes open. She is walking without evidence of ataxia. No overt vertical nystagmus- although again would check again when pt more alert. VS stable, SBP<150, Hr<100, afebrile. Past Psychiatric History: [facility] Medical History Alcohol use disorder, severe, dependence Closed fracture of greater tuberosity of right humerus Alcohol use disorder, moderate, dependence Pancytopenia Alcohol withdrawal seizure Diverticulitis Pelvic abscess in female Anxiety Alcohol abuse Surgical History No pertinent past surgical history Social History: Lives by self, with 2 cats. Currently not working. Has a daughter. Diagnostics Vital Signs (24Hr): Vital Signs - 24 hr 03/09/23 02:39 03/09/23 06:36 03/09/23 08:17 Temperature 98.4 F 98.0 F Pulse Rate 97 99 106 H Respiratory Rate 104 H 17 14 Blood Pressure 137/86 102/60 96/64 Pulse Oximetry 98 95 96 Oxygen Delivery Method Room Air Room Air Room Air 03/09/23 08:34 03/09/23 10:36 Temperature Pulse Rate 95 93 Respiratory Rate 14 14 Blood Pressure 107/63 110/65 Pulse Oximetry 96 97 Oxygen Delivery Method Room Air Room Air BMI result Body Mass Index 23.7 Labs 03/09/23 03:52 03/09/23 03:52 Labs: Laboratory Results - last 48 hr 03/09/23 03/09/23 03:52 04:50 WBC 8.0 RBC 3.75 L Hgb 10.5 L Hct 31.1 L MCV 82.9 MCH 28.0 MCHC 33.8 RDW 13.7 Plt Count 152 L D MPV 10.2 Immature Gran % (Auto) 0.3 Neut % (Auto) 70.7 Lymph % (Auto) 13.6 L [place] % (Auto) 8.7 Eos % (Auto) 6.4 H Baso % (Auto) 0.3 Lymph # (Auto) 1.1 L [place] # (Auto) 0.7 Eos # (Auto) 0.5 H Baso # (Auto) 0.0 Abs Immat Gran (auto) 0.02 Absolute Neuts (auto) 5.6 Absolute Nucleated RBC 0.000 Nucleated RBC % (auto) 0.0 Sodium 138 Potassium 3.1 L Chloride 98 Carbon Dioxide 27 Anion Gap 16 BUN 5 L Creatinine 0.54 Estim Creat Clear Calc 143.7 Estimated GFR > 60 Random Glucose 113 Calcium 8.9 Total Bilirubin 0.8 Direct Bilirubin 0.3 AST 63 H ALT 32 H Alkaline Phosphatase 126 H Total Protein 6.5 Albumin 3.5 Urine Color Yellow Urine Appearance Clear Urine pH 7.0 Ur Specific [place] <= 1.005 Urine Protein Negative Urine Glucose (UA) Negative Urine Ketones Trace Urine Blood Negative Urine Nitrite Negative Ur Leukocyte Esterase Small (1+) H Urine RBC 0-2 Urine WBC 0-5 Ur Squamous Epith Cells 0-2 Urine Bacteria None Seen Hyaline Casts 0-2 Urine Opiates Screen Not Detected Urine Fentanyl Screen Not Detected Ur Barbiturates Screen Not Detected Ur Phencyclidine Scrn Not Detected Ur Amphetamines Screen Not Detected U Benzodiazepines Scrn Not Detected Urine Cocaine Screen POSITIVE H U Marijuana (THC) Screen Not Detected Ethyl Alcohol < 10 Imaging Radiology Impressions: ITS Impressions Soft Tissue Neck X-Ray 03/09/23 08:25 IMPRESSION: No soft tissue swelling or opaque foreign body is seen. Some minimal degenerative changes as described above. Mental Status Exam Mental Status Exam Narrative: Appearance: wearing hospital gown, nodding, difficult to keep eyes open Behavior: trying to engage but somnolent Psychomotor: somnolent Speech: mostly clear, regular rate/rhythm, spontaneous TP: mostly linear, pertinent to questions asked TC: feeling tired, worried of hallucinations SI: none HI: none due to somnolent difficult to fully assess orientation but she is oriented to place, situation Medications Medications Current Medications Acetaminophen (Acetaminophen 325 Mg Tablet) 650 mg PO Q6H PRN PRN Reason: Pain, Moderate(Pain Scale 4-6) Last Admin: 03/09/23 09:32 Dose: 650 mg Lorazepam (Lorazepam 1 Mg Tablet) 2 mg PO Q3H PRN PRN Reason: Alcohol Withdrawal Last Admin: 03/09/23 09:52 Dose: 2 mg Allergies Allergies Allergy/AdvReac Type Severity Reaction Status Date / Time amoxicillin [From Augmentin] Allergy Intermediate Abdominal Verified 02/23/23 11:30 Pain clavulanic acid Allergy Intermediate Abdominal Verified 02/23/23 11:30 [From Augmentin] Pain gabapentin Allergy Intermediate Dizziness Verified 02/23/23 11:30 Sulfa (Sulfonamide Allergy Mild RASH Verified 02/23/23 11:30 Antibiotics) [SULFA (SULFONAMIDE ANTIBIOTICS)] magnesium AdvReac Diarrhea Verified 02/23/23 11:30 Assessment & Plan Assessment & Plan (1) Alcohol use disorder, severe, dependence: Status: Acute Code(s): F10.20 - Alcohol dependence, uncomplicated (2) Psychosis: Status: Acute Code(s): F29 - Unspecified psychosis not due to a substance or known physiological condition Plan Ms. Vanessa is a 42 year-old woman with extensive hx of alcohol use usually presents intoxicated, now presenting with combination of visual and auditory hallucinations with some insight that these may be perceptual disturbances. Unclear if related to alcohol withdrawal and DT given some degree of orientation and more related to use of cocaine. continue alcohol withdrawal protocol, add risperidone low dose 0.5mg po BID. Pt to remain in the hospital. Total time managing care of this patient today ____ minutes.
[2023-03-09] MEDS: risperiDONE 0.5 MG TABLET PO (14:00)
--- NOTE | 2023-03-09 16:17 | HO.ADDICTCON ---
History of Present Illness Date of Service: 03/09/2023 Chief Complaint: ETOH Reason for Consult: ETOH and hallucinations Requesting physician: Doris Kenney Sources of Information: patient interviewed and chart reviewed HPI Narrative: Patient is a 42 year old female with AUD [place] [facility]. Several ED visits and medical admissions secondary to alcohol use. Patient presented to ED early this morning via EMS after she reported people being in her house, went to her neighbors home and in fact there was no one there. She was reporting a man with a cowboy hat yelling at her, a woman and a child and several other things. She reported last drink prior to presenting at ED. Seen by diving judge in AM, alert, oriented however still experiencing visual and tactile hallucinations. Patient verbalized awareness that hallucinations were not real or anything that anyone could see. Seen by psychiatry and risperdal, ativan and CIWA ordered. Labs reviewed. UDS + which is unusual for patient and she denies knowingly using this in any capacity. Alcohol level was <10. Despite patient reporting last drink prior to presenting in ED. Seen by this director underwriter sales in the afternoon oriented to person, place and situation, somewhat drowsy likely secondary to risperdal adminsitration. No tremor notes, no nystagmus, not diaphoretic or restless or anxious. Responding to people who were not in the room several times during interview, moving objects that were not in the room. Discussed alcohol level/lack of and concern about this and current sx., patient adamant she was drinking last evening while watching the parade go down her street . Past Psychiatric History: IOP Review of Systems Review of Systems Yes Unobtainable due to mental status Diagnostics Vital Signs (24Hr): Vital Signs - 24 hr 03/09/23 02:39 03/09/23 06:36 03/09/23 08:17 Temperature 98.4 F 98.0 F Pulse Rate 97 99 106 H Respiratory Rate 104 H 17 14 Blood Pressure 137/86 102/60 96/64 Pulse Oximetry 98 95 96 Oxygen Delivery Method Room Air Room Air Room Air 03/09/23 08:34 03/09/23 10:36 Temperature Pulse Rate 95 93 Respiratory Rate 14 14 Blood Pressure 107/63 110/65 Pulse Oximetry 96 97 Oxygen Delivery Method Room Air Room Air BMI result Body Mass Index 23.7 Labs 03/09/23 03:52 03/09/23 03:52 Labs: Laboratory Results - last 48 hr 03/09/23 03/09/23 03:52 04:50 WBC 8.0 RBC 3.75 L Hgb 10.5 L Hct 31.1 L MCV 82.9 MCH 28.0 MCHC 33.8 RDW 13.7 Plt Count 152 L D MPV 10.2 Immature Gran % (Auto) 0.3 Neut % (Auto) 70.7 Lymph % (Auto) 13.6 L [place] % (Auto) 8.7 Eos % (Auto) 6.4 H Baso % (Auto) 0.3 Lymph # (Auto) 1.1 L [place] # (Auto) 0.7 Eos # (Auto) 0.5 H Baso # (Auto) 0.0 Abs Immat Gran (auto) 0.02 Absolute Neuts (auto) 5.6 Absolute Nucleated RBC 0.000 Nucleated RBC % (auto) 0.0 Sodium 138 Potassium 3.1 L Chloride 98 Carbon Dioxide 27 Anion Gap 16 BUN 5 L Creatinine 0.54 Estim Creat Clear Calc 143.7 Estimated GFR > 60 Random Glucose 113 Calcium 8.9 Total Bilirubin 0.8 Direct Bilirubin 0.3 AST 63 H ALT 32 H Alkaline Phosphatase 126 H Total Protein 6.5 Albumin 3.5 Urine Color Yellow Urine Appearance Clear Urine pH 7.0 Ur Specific [place] <= 1.005 Urine Protein Negative Urine Glucose (UA) Negative Urine Ketones Trace Urine Blood Negative Urine Nitrite Negative Ur Leukocyte Esterase Small (1+) H Urine RBC 0-2 Urine WBC 0-5 Ur Squamous Epith Cells 0-2 Urine Bacteria None Seen Hyaline Casts 0-2 Urine Opiates Screen Not Detected Urine Fentanyl Screen Not Detected Ur Barbiturates Screen Not Detected Ur Phencyclidine Scrn Not Detected Ur Amphetamines Screen Not Detected U Benzodiazepines Scrn Not Detected Urine Cocaine Screen POSITIVE H U Marijuana (THC) Screen Not Detected Ethyl Alcohol < 10 Imaging Radiology Impressions: ITS Impressions Soft Tissue Neck X-Ray 03/09/23 08:25 IMPRESSION: No soft tissue swelling or opaque foreign body is seen. Some minimal degenerative changes as described above. Mental Status Exam Mental Status Exam Patient Orientation: Person, Place, Time and Situation Level of Consciousness: Drowsy Patient Behavior: Talkative Mood Description: Calm Affect Description: Calm Speech Pattern: Clear Hallucinations: Auditory, Visual and Tactile Medications Medications Current Medications Acetaminophen (Acetaminophen 325 Mg Tablet) 650 mg PO Q6H PRN PRN Reason: Pain, Moderate(Pain Scale 4-6) Last Admin: 03/09/23 09:32 Dose: 650 mg Lorazepam (Lorazepam 1 Mg Tablet) 2 mg PO Q4H PRN PRN Reason: ciwa 13-17 Lorazepam (Lorazepam 1 Mg Tablet) 1 mg PO Q4H PRN PRN Reason: ciwa 7-12 Risperidone (Risperidone 0.5 Mg Tablet) 0.5 mg PO BID GHASSAN Last Admin: 03/09/23 14:00 Dose: 0.5 mg Thiamine HCl (Thiamine Hcl 100 Mg Tablet) 100 mg PO DAILY GHASSAN Allergies Allergies Allergy/AdvReac Type Severity Reaction Status Date / Time amoxicillin [From Augmentin] Allergy Intermediate Abdominal Verified 02/23/23 11:30 Pain clavulanic acid Allergy Intermediate Abdominal Verified 02/23/23 11:30 [From Augmentin] Pain gabapentin Allergy Intermediate Dizziness Verified 02/23/23 11:30 Sulfa (Sulfonamide Allergy Mild RASH Verified 02/23/23 11:30 Antibiotics) [SULFA (SULFONAMIDE ANTIBIOTICS)] magnesium AdvReac Diarrhea Verified 02/23/23 11:30 Assessment & Plan Assessment & Plan (1) Alcohol hallucinosis: Status: Acute Code(s): F10.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 discussed with ED provider concern for progression of withdrawal sx -medical admit (2) Alcohol use disorder, severe, dependence: Status: Acute Code(s): F10.20 - Alcohol dependence, uncomplicated Total time managing care of this patient today __45__ minutes. PMFSH Past Medical History Medical History Alcohol use disorder, severe, dependence Closed fracture of greater tuberosity of right humerus Alcohol use disorder, moderate, dependence Pancytopenia Alcohol withdrawal seizure Diverticulitis Pelvic abscess in female Anxiety Alcohol abuse Family History Family History Father Medical history unknown Mother Medical history unknown Paternal Grandfather Cancer Sister Epilepsy Daughter In good health Son In good health Other Substance use disorder Surgical History Surgical History No pertinent past surgical history Social History Social History Household Members: None Housing: Apartment Do you presently have visiting nurse or other home services: No Alcohol intake: current Alcohol intake frequency: 3 or more drinks per day Alcohol type: wine Comment: REFUSING ALARM Patient Tobacco Use Status: Former Tobacco user Quit Date: 2006 Tobacco use type: Cigarette Smoked in Last 30 Days: No e-Cigarette/Vaping Use: Never Used Second Hand Smoke Exposure: No Use of substances other than those prescribed or required for medical reasons: No Substance Use Type: Marijuana Advance Directives: Yes Advance Directives on File: Yes Advance Directives Date on File: 01/25/21 Healthcare Proxy: No Guardian: No service: No Current occupational status: unemployed Current occupation: right hand dominant Cognitive needs: No Hearing needs: No Vision needs: No
[2023-03-09] MEDS: Thiamine HCL 100 MG TABLET PO (16:32)
--- NOTE | 2023-03-09 18:25 | PC.NURSE ---
patient given back her belongings, dressed appropriatly, ambulated off unit with steady gait
== END 2023-03-09 18:26 | disposition home or self-care (01) ==
PROVIDERS: Emergency Provider Emergency Medicine; PCP Internal Medicine
DX: F10.951 Alcohol use, unspecified with alcohol-induced psychotic disorder with hallucinations (principal); Y90.9 Presence of alcohol in blood, level not specified; M54.2 Cervicalgia; F41.9 Anxiety disorder, unspecified; Z87.891 Personal history of nicotine dependence; Z79.899 Other long term (current) drug therapy
CPT/HCPCS: 36415; 70360; 80048; 80076; 80307; 81001; 81003; 85025; 87086; 99284; S9485

== ENCOUNTER → 2023-03-09 03:06 | Outpatient (BNV) | payer OTHER, SELFPAY | PROVIDERS: Emergency Provider Emergency Medicine; PCP Internal Medicine; Visit Provider Nurse Practitioner Psychiatric/Mental Health | DX: F10.951 Alcohol use, unspecified with alcohol-induced psychotic disorder with hallucinations (principal) | CPT/HCPCS: 99283; 99285 ==

== ENCOUNTER 2023-03-09 22:51 | Inpatient (IN) | payer OTHER, SELFPAY ==
[2023-03-09 23:07] VITALS: BP 110/70; BP 114/84; PULSE 120; PULSE 129; RESP 16; TEMP 36.4; O2SAT 98; BMI 20.9
[2023-03-09 23:21] VITALS: BP 114/84; PULSE 129; RESP 16; TEMP 36.4; O2SAT 98
--- NOTE | 2023-03-09 23:28 | PC.NURSE ---
Pt was seen here earlier today for alcohol withdrawals and hallucinations. Pt was cleared and discharged. Pt's provider thakkar Jenniffer after she left, stating she should not have been discharged and she should be placed in detox. Pt was still having hallucinations at home. Pt stated there was something that looked like an animal under her blanket. She tried to get it to leave but it wouldn't go away. Charge nurse called for a well being check and pt was brought back to ED. Pt denies SI or HI at this time, reports a headache and some photophobia. Pt does not have obvious hand tremors. Pt has been placed on teletypesetter monitor due to high HR, and is now waiting to be seen by ED provider.
--- NOTE | 2023-03-10 00:56 | ED.GENADULT ---
HPI - General Adult General Chief complaint: General Medical Stated complaint: delirium, auditory and visual hallucinations, WD Time Seen by Provider: 03/10/23 00:55 Source: patient Mode of arrival: EMS Limitations: no limitations History of Present Illness HPI narrative: Patient alcoholic drinks wine and Vodka just seen here by care team had hallucinations at that time which improved at time of discharge on naltrexone and Ativan plan was to go as outpatient detox at home patient started having hallucinations after arrival patient noticed at has dog under her bed. No auditory hallucination no abdominal pain no nausea no vomiting patient just had a drink prior to arrival patient has been here multiple times for alcohol intoxication patient states for last few weeks patient has decreased the amount of alcohol Related Data Home Medications Medication Instructions Recorded Confirmed clonidine HCl 0.1 mg tablet 0.1 mg PO BEDTIME PRN Anxiety 01/15/23 01/20/23 diclofenac sodium 1 % topical gel 2 g topical QID PRN pain 01/15/23 01/20/23 hyoscyamine sulfate 0.125 mg 0.125 mg PO QID PRN Abdominal Pain 01/15/23 01/20/23 disintegrating tablet propranolol 10 mg tablet 10 mg PO DAILY 01/15/23 01/20/23 tramadol 50 mg tablet 50 mg PO BID PRN pain 01/15/23 01/20/23 vitamin B complex 1 cap PO DAILY 01/15/23 01/20/23 naltrexone 50 mg tablet 50 mg PO DAILY 01/20/23 01/20/23 Previous Rx's Medication Instructions Recorded hydroxyzine HCl 25 mg tablet 25 mg PO BEDTIME 90 days #90 tabs 01/05/23 multivitamin 1 tab PO DAILY 90 days #90 tabs 01/05/23 naproxen 500 mg tablet 500 mg PO BID 30 days #60 tabs 01/11/23 lorazepam 1 mg tablet (Ativan) 1 mg PO Q4-6H PRN alcohol 03/09/23 withdrawal #20 tabs Allergies Allergy/AdvReac Type Severity Reaction Status Date / Time amoxicillin [From Augmentin] Allergy Intermediate Abdominal Verified 02/23/23 11:30 Pain clavulanic acid Allergy Intermediate Abdominal Verified 02/23/23 11:30 [From Augmentin] Pain gabapentin Allergy Intermediate Dizziness Verified 02/23/23 11:30 Sulfa (Sulfonamide Allergy Mild RASH Verified 02/23/23 11:30 Antibiotics) [SULFA (SULFONAMIDE ANTIBIOTICS)] magnesium AdvReac Diarrhea Verified 02/23/23 11:30 Review of Systems Review of Systems: Yes all other systems are reviewed and are negative PMFSH Past Medical History Onset Date is defined in the Problem List Problems that require an onset date and time if occurred within 24 hrs of arrival to the ED Aortic Dissection and Rupture; Neurologic impairment; Cardiopulmonary Arrest; Endotracheal Intubation; Insertion or Replacement of Mechanical Circulatory Assist Device Medical History Alcohol use disorder, severe, dependence Closed fracture of greater tuberosity of right humerus Alcohol use disorder, moderate, dependence Pancytopenia Alcohol withdrawal seizure Diverticulitis Pelvic abscess in female Anxiety Alcohol abuse Surgical History (Reviewed 03/10/23 @ :27 by Ángel Guerra MD) No pertinent past surgical history Family History Family History (Reviewed 03/10/23 @ :27 by Ángel Guerra MD) Father Medical history unknown Mother Medical history unknown Paternal Grandfather Cancer Sister Epilepsy Daughter In good health Son In good health Other Substance use disorder Social History Social History Household Members: None Housing: Apartment Do you presently have visiting nurse or other home services: No Alcohol intake: current Alcohol intake frequency: 3 or more drinks per day Alcohol type: wine Comment: REFUSING ALARM Patient Tobacco Use Status: Former Tobacco user Quit Date: 2006 Tobacco use type: Cigarette Smoked in Last 30 Days: Yes e-Cigarette/Vaping Use: Never Used Second Hand Smoke Exposure: No Use of substances other than those prescribed or required for medical reasons: Yes Substance Use Type: Marijuana Substance Use Frequency: Daily Advance Directives: Yes Advance Directives on File: Yes Advance Directives Date on File: 01/25/21 Patient : No service: No Current occupational status: unemployed Current occupation: right hand dominant Cognitive needs: No Hearing needs: No Vision needs: No Physical Exam ED Vital Signs: Vital Signs - 24 hr 03/09/23 23:07 03/09/23 23:21 Temperature 97.5 F 97.5 F Pulse Rate 129 H 129 H Respiratory Rate 16 16 Blood Pressure 114/84 114/84 Pulse Oximetry 98 98 Oxygen Delivery Method Room Air Room Air BMI result Body Mass Index 20.9 Appearance: Alert. Oriented X3. No acute distress. Eyes: PERRLA, No Nystagmus ENT: Pharynx normal. Oral Mucosa moist Neck: Normal inspection. Neck supple. CVS: Tachycardic regular. Pulses normal. Respiratory: No respiratory distress. Equal air entry bilateral, no wheezing/rales/rhonchi Abdomen: Soft and nontender. Bowel sounds are present, no mass palpable, no CVA tenderness Skin: Skin warm and dry. Normal skin color. Normal skin turgor. Extremities: No lower extremity edema. No calf tenderness psych; visual hallucination+ Neuro: Oriented X 3. No motor deficit. No sensory deficit.No cerebellar signs , cranial nerves II-XII intact Medications Administered Discontinued Medications Generic Name Dose Route Start Last Admin Trade Name Freq PRN Reason Stop Dose Admin Hydroxyzine HCl 25 mg 03/10/23 01:13 03/10/23 01:46 Hydroxyzine Hcl 25 Mg Tablet PO 03/10/23 01:14 25 mg ONCE ONE Administration Sodium Chloride 1,000 mls @ 999 mls/hr 03/10/23 00:58 03/10/23 01:45 Ns IV 03/10/23 01:58 Not Given .Q1H1M ONE Ibuprofen 600 mg 03/10/23 01:01 03/10/23 01:07 Ibuprofen 600 Mg Tablet PO 03/10/23 01:02 600 mg ONCE ONE Administration Phenobarbital Sodium 221 mg 03/10/23 01:30 03/10/23 01:47 Phenobarbital Sodium 130 Mg/Ml Im Once IM 03/10/23 01:31 221 mg ONCE ONE Administration Thiamine HCl 100 mg 03/10/23 01:36 03/10/23 02:15 Thiamine Hcl 100 Mg Tablet PO 03/10/23 01:37 100 mg ONCE ONE Administration Tramadol HCl 50 mg 03/10/23 01:13 03/10/23 01:45 Tramadol Hcl 50 Mg Tablet PO 03/10/23 01:14 50 mg ONCE ONE Administration Medical Decision Making Medical Decision Making [facility] Narrative: Patient with alcohol withdrawal with visual hallucination will admit patient and start on phenobarb protocol Differential Diagnosis Differential Diagnoses: The differential diagnosis associated with the presentation includes Alcohol withdrawal/intoxicated /hallucination Lab Data [facility] Lab Attestation statement: I reviewed the patient's lab results. 03/10/23 01:20 03/10/23 01:45 Discharge Plan Discharge Clinical Impression: Alcohol use disorder, severe, dependence, Alcohol hallucinosis Patient Disposition: Admitted As Inpatient
--- NOTE | 2023-03-10 01:05 | P.HPHOSP_ITS ---
History of Present Illness Date of Service: 03/10/23 Chief Complaint: Alcohol withdrawal This is a 42-year-old female with pertinent history of alcohol use disorder with prior admissions for alcohol withdrawal, mood disorder, alcoholic fatty liver who presents to the emergency department for concerns of alcohol withdrawal. Patient states her last drink was 4 hours prior to presentation. She usually drinks vodka and wine. She has been having tremors, nausea, sweating and visual hallucinations since she stopped drinking. No fever, chills, chest discomfort, palpitations, shortness of breath, abdominal pain, changes in urinary or bowel habits. In the emergency department, patient was initiated on phenobarb protocol. Review of Systems 2 Constitutional: Constitutional: Reports excessive sweating, Reports fatigue and Reports malaise Cardiovascular: Cardiovascular: Reports no additional cardiovascular complaints Respiratory: Respiratory: Reports no additional respiratory complaints Gastrointestinal: Gastrointestinal: Reports nausea Neurologic: Reports tremor(s) Endocrine: Endocrine: Reports excessive sweating and Reports fatigue PMFSH Medical History Alcohol use disorder, severe, dependence Closed fracture of greater tuberosity of right humerus Alcohol use disorder, moderate, dependence Pancytopenia Alcohol withdrawal seizure Diverticulitis Pelvic abscess in female Anxiety Alcohol abuse Family History Father Medical history unknown Mother Medical history unknown Paternal Grandfather Cancer Sister Epilepsy Daughter In good health Son In good health Other Substance use disorder Surgical History No pertinent past surgical history Social History Household Members: None Housing: Apartment Do you presently have visiting nurse or other home services: No Alcohol intake: current Alcohol intake frequency: 3 or more drinks per day Alcohol type: wine Comment: REFUSING ALARM Patient Tobacco Use Status: Former Tobacco user Quit Date: 2006 Tobacco use type: Cigarette Smoked in Last 30 Days: Yes e-Cigarette/Vaping Use: Never Used Second Hand Smoke Exposure: No Use of substances other than those prescribed or required for medical reasons: Yes Substance Use Type: Marijuana Substance Use Frequency: Daily Advance Directives: Yes Advance Directives on File: Yes Advance Directives Date on File: 01/25/21 Patient : No service: No Current occupational status: unemployed Current occupation: right hand dominant Cognitive needs: No Hearing needs: No Vision needs: No Meds Allergies Allergy/AdvReac Type Severity Reaction Status Date / Time amoxicillin [From Augmentin] Allergy Intermediate Abdominal Verified 02/23/23 11:30 Pain clavulanic acid Allergy Intermediate Abdominal Verified 02/23/23 11:30 [From Augmentin] Pain gabapentin Allergy Intermediate Dizziness Verified 02/23/23 11:30 Sulfa (Sulfonamide Allergy Mild RASH Verified 02/23/23 11:30 Antibiotics) [SULFA (SULFONAMIDE ANTIBIOTICS)] magnesium AdvReac Diarrhea Verified 02/23/23 11:30 Active Medications: Current Medications Acetaminophen (Acetaminophen 325 Mg Tablet) 650 mg PO Q6H PRN PRN Reason: Pain, Mild (Pain Scale 1-3) Sodium Chloride (Ns) 1,000 mls @ 999 mls/hr IV .Q1H1M ONE Stop: 03/10/23 01:58 Thiamine HCl 100 mg/ Sodium (Chloride) 101 mls @ 202 mls/hr IV ONCE ONE Stop: 03/10/23 01:31 Melatonin (Melatonin 3 Mg Tablet) 6 mg PO BEDTIME PRN PRN Reason: Insomnia Ondansetron HCl (Ondansetron Hcl 4 Mg/2 Ml Vial) 4 mg IVPUSH Q8H PRN PRN Reason: Nausea and Vomiting Pharmacy Consult (Consult Rx Etoh Phenob Im/Po) 10 each MISCELLANE ONCE PRN; Protocol PRN Reason: Consult order Sodium Chloride (0.9 % Sodium Chloride Flush 3 Ml Syringe) 3 ml IVFLUSH [facility] Home Medications Medication Instructions Recorded Confirmed Last Taken Type clonidine HCl 0.1 mg tablet 0.1 mg PO BEDTIME PRN Anxiety 01/15/23 01/20/23 Unknown History diclofenac sodium 1 % topical gel 2 g topical QID PRN pain 01/15/23 01/20/23 Unknown History hyoscyamine sulfate 0.125 mg 0.125 mg PO QID PRN Abdominal Pain 01/15/23 01/20/23 Unknown History disintegrating tablet propranolol 10 mg tablet 10 mg PO DAILY 01/15/23 01/20/23 Unknown History tramadol 50 mg tablet 50 mg PO BID PRN pain 01/15/23 01/20/23 Unknown History vitamin B complex 1 cap PO DAILY 01/15/23 01/20/23 Unknown History naltrexone 50 mg tablet 50 mg PO DAILY 01/20/23 01/20/23 Unknown History Physical Exam 2 Vital Signs and Narrative: Vital Signs: Last Vital Signs Temp 97.5 F 03/09/23 23:21 Pulse 129 H 03/09/23 23:21 Resp 16 03/09/23 23:21 BP 114/84 03/09/23 23:21 Pulse Ox 98 03/09/23 23:21 O2 Del Method Room Air 03/09/23 23:21 BMI result Body Mass Index 20.9 Middle-aged female lying in bed in no distress Neck supple, no JVD Tachycardic with regular rhythm, S1-S2 heard Regular breath sounds bilaterally, no wheezing or crackles appreciated Abdomen soft nontender, no guarding, no rigidity Patient is awake, alert and oriented to self, place, time and person ; upper extremity tremors present Psych: Anxious No pedal edema Results Labs 03/10/23 01:20 03/10/23 01:45 Assessment and Plan (1) Alcohol use disorder, moderate, dependence: Status: Acute (2) Alcohol hallucinosis: Status: Acute Plan This is a 42-year-old female with pertinent history of alcohol use disorder with prior admissions for alcohol withdrawal, mood disorder, alcoholic fatty liver who presents to the emergency department for concerns of alcohol withdrawal. #. Alcohol use disorder with concerns of withdrawal: Patient has been initiated on phenobarb protocol. Initiated thiamine and folic acid. Monitor CIWA. Consulted Addiction team #. Mood disorder: Continue home mood stabilizers Med rec pending DVT prophylaxis: Lovenox Full code Quality Stroke Does the patient have a stroke diagnosis?: No VTE Prior VTE?: No VTE Risk Level:: Medical - moderate - high VTE Device Contraindication: Treatment Not Indicated VTE Drug Contraindication: N/A - Med Ordered
[2023-03-10] MEDS: Ibuprofen 600 MG TABLET PO (01:07)
[2023-03-10 01:25] LABS: Basophils Percent Auto 0.3 % (0-2); Eosinophils Absolute Auto 0.5 X10*3/uL (0.0-0.4); Eosinophils Percent Auto 7.9 % (0-4); Hematocrit 32.5 % (37.0-47.0); Hemoglobin 10.8 g/dl (12.0-16.0); Imm Gran Abs Auto 0.02 X10*3/uL (0.00-0.03); Imm Gran Pct Auto 0.3 % (0.0-0.4); Lymphocytes Absolute Auto 1.5 X10*3/uL (1.2-4.9); Lymphocytes Percent Auto 23.7 % (20-40); MANUAL DIFF FLAG NO; Mean Corpuscular HGB Conc 33.2 g/dl (31.0-35.0); Mean Corpuscular Hemoglobin 28.2 pg (27.0-33.0); Mean Corpuscular Volume 84.9 fL (80.0-98.0); Mean Platelet Volume 10.2 fL (9.4-12.3); Monocytes Absolute Auto 0.7 X10*3/uL (0.1-1.2); Monocytes Percent Auto 10.4 % (2-11); Neutrophils Absolute Auto 3.7 x10*3/uL (2.0-8.3); Neutrophils Percent Auto 57.4 % (45-73); Platelet Count 167 X10*3/uL (160-400); Red Blood Count 3.83 X10*6/uL (4.20-5.50); Red Cell Distribution Width 14.3 % (11.0-16.0); White Blood Count 6.4 X10*3/uL (4.8-10.8)
[2023-03-10] MEDS: traMADoL HCL 50 MG TABLET PO (01:45)
[2023-03-10] MEDS: hydrOXYzine HCL 25 MG TABLET PO (01:46)
[2023-03-10] MEDS: PHENobarbitaL sodium 130 MG/ML IM ONCE 221 MG IM (01:47)
[2023-03-10 02:12] LABS: Alanine Aminotransferase 30 U/L (0-31); Albumin Level 3.3 g/dL (3.5-5.0); Alkaline Phosphatase 102 U/L (39-117); Anion Gap 12 (12-20); Aspartate Amino Transferase 53 U/L (5-31); Bilirubin Total 0.4 mg/dL (0.0-1.0); Blood Urea Nitrogen 4 mg/dL (9-16); Calcium 8.8 mg/dL (8.4-10.2); Carbon Dioxide 26 mmol/L (22-29); Chloride 104 mmol/L (96-108); Creatinine Clr Calc Pharmacy 105.1; Estimated Glomerular Filt Rate > 60; Ethanol < 10 mg/dL; Glucose Random 134 mg/dL (60-115); Magnesium 1.8 mg/dL (1.6-2.6); Potassium 3.2 mmol/L (3.3-5.1); Sodium 139 mmol/L (135-145); Total Protein 6.1 g/dL (6.5-8.0)
[2023-03-10] MEDS: Thiamine HCL 100 MG TABLET PO ×2 (02:15→08:03)
[2023-03-10 02:25] VITALS: BP 123/69; PULSE 108; RESP 16; TEMP 36.4; O2SAT 97
[2023-03-10 03:54] LABS: Appearance Urine Clear; Color Urine Yellow; Glucose Urine UA Negative (Negative); Leukocyte Esterase Urine Negative (Negative); Nitrite Urine Negative (Negative); PH 6.5 (5.0-9.0); Specific Gravity - Urine <= 1.005 (1.005-1.025); Urine Blood Negative (Negative); Urine Ketones Negative (Negative); Urine Protein Negative (Neg-Trace)
[2023-03-10 04:00] LABS: Amphetamine Screen Urine Not Detected (Not Detect); Barbiturates, Urine Not Detected (Not Detect); Benzodiazepines Screen Urine Not Detected (Not Detect); Cannabinoid Screen Urine Not Detected (Not Detect); Cocaine Screen Urine Not Detected (Not Detect); Fentanyl, urine Not Detected (Not Detect); Opiate Screen Urine Not Detected (Not Detect); Phencyclidine Screen Urine Not Detected (Not Detect)
--- NOTE | 2023-03-10 04:19 | PC.NURSE ---
Home medications found in pt's bag. Prazosin, clonidine, and propanolol counted and placed in medication envelope to be brought to pharmacy. An empty tramadol container was also found. I included it with the medications sent to pharmacy as this is a controlled medication. Pt understands that she will get medications back on discharge.
--- NOTE | 2023-03-10 04:21 | PC.NURSE ---
Pt is having intermittent hallucinations. She was seen walking towards the door, saying she was told there was a fire drill. Pt was directed back to bed and ensured there is no fire drill. Pt also started looking for a machine heel sprayer to give to a person who is not there. Pt got dressed as if she were leaving but was redirected back into her room and given a new ildefonso.
[2023-03-10] MEDS: PHENobarbitaL sodium 130 MG/ML VIAL IM Q3Hx2 160 MG IM ×2 (04:30→07:49)
[2023-03-10] MEDS: Potassium Chloride Packet 20 MEQ PACKET 40 MEQ PO (04:36)
--- NOTE | 2023-03-10 05:04 | PC.NURSE ---
Pt has been restless in bed, occasionally standing in the hallway and putting her jacket on. When I asked what she was doing, she said she wanted to go down the street with the rest of us. I explained that we are not going anywhere and she went back to her room.
[2023-03-10 05:40] VITALS: BP 117/90; PULSE 116; RESP 16; TEMP 36.6; O2SAT 98
[2023-03-10 06:25] LABS: MANUAL DIFF FLAG NO
[2023-03-10 06:28] LABS: Basophils Percent Auto 0.3 % (0-2); Eosinophils Absolute Auto 0.8 X10*3/uL (0.0-0.4); Eosinophils Percent Auto 10.6 % (0-4); Hematocrit 32.3 % (37.0-47.0); Hemoglobin 10.7 g/dl (12.0-16.0); Imm Gran Abs Auto 0.02 X10*3/uL (0.00-0.03); Imm Gran Pct Auto 0.3 % (0.0-0.4); Lymphocytes Absolute Auto 2.1 X10*3/uL (1.2-4.9); Lymphocytes Percent Auto 29.3 % (20-40); Mean Corpuscular HGB Conc 33.1 g/dl (31.0-35.0); Mean Corpuscular Hemoglobin 28.8 pg (27.0-33.0); Mean Corpuscular Volume 86.8 fL (80.0-98.0); Mean Platelet Volume 10.6 fL (9.4-12.3); Monocytes Percent Auto 14.2 % (2-11); Neutrophils Absolute Auto 3.2 x10*3/uL (2.0-8.3); Neutrophils Percent Auto 45.3 % (45-73); Platelet Count 187 X10*3/uL (160-400); Red Blood Count 3.72 X10*6/uL (4.20-5.50); Red Cell Distribution Width 14.5 % (11.0-16.0); White Blood Count 7.1 X10*3/uL (4.8-10.8)
[2023-03-10] MEDS: Enoxaparin Sodium 40 MG/0.4 ML SYRINGE SUBCUT (06:32)
[2023-03-10] MEDS: PHENobarbitaL sodium 130 MG/ML VIAL IM (06:32)
[2023-03-10 06:42] LABS: Anion Gap 16 (12-20); Blood Urea Nitrogen 4 mg/dL (9-16); Carbon Dioxide 23 mmol/L (22-29); Chloride 103 mmol/L (96-108); Creatinine Clr Calc Pharmacy 98.3; Estimated Glomerular Filt Rate > 60; Glucose Random 105 mg/dL (60-115); Potassium 5.5 mmol/L (3.3-5.1); Sodium 136 mmol/L (135-145)
--- NOTE | 2023-03-10 06:44 | PC.NURSE ---
Pt assisted in going through belongings and found a pack of cigarettes, no lighters or other paraphernalia. Pt stated she knows that we are not supposed to have cigarettes here. Pt is wearing a ildefonso but continues to take it off and dress as if she were going home. Pt agreed to keep the ildefonso over if it's over her tshirt. Pt is now resting in bed. Also spoke with pt's mom, informed her that pt will be admitted.
[2023-03-10 07:47] VITALS: BP 133/96; PULSE 126; RESP 18; O2SAT 100
[2023-03-10] MEDS: Folic Acid 1 MG TABLET PO (08:02)
--- NOTE | 2023-03-10 08:25 | PHA.MEDREC ---
Pharmacy Consult ? Medication Reconciliation Pharmacy has completed the medication reconciliation. Patient says these are the medication she is suppose to be taking but is out of refills for some
--- NOTE | 2023-03-10 08:34 | PC.NURSE ---
pt is confused and seeing things that are not in the room. speech is rambling, and disorganized. Camera in place. Hospitalist notified
--- NOTE | 2023-03-10 09:16 | PC.NURSE ---
pt changed over with security, belongings secured.
--- NOTE | 2023-03-10 09:20 | PC.NURSE ---
belongings in locker 1
[2023-03-10 12:25] VITALS: BP 135/97; PULSE 123; RESP 16; TEMP 36.9; O2SAT 95
[2023-03-10 13:09] VITALS: BMI 25.0
--- NOTE | 2023-03-10 13:31 | MHC.CM.PN ---
pt is indepedent may need assitance w/ transportaion home is involved with some community support
--- NOTE | 2023-03-10 14:27 | PM.EVENT ---
Event Note Date of Service: 03/10/23 Event Note: Patient seen examined. Agree with assessment and plan as outlined. Await addiction Medicine input Time Spent With Patient Time: Total time managing care of this patient today ____ minutes.
[2023-03-10 15:33] VITALS: BP 118/83; PULSE 119; RESP 18; TEMP 36.6; O2SAT 98
[2023-03-10] MEDS: 0.9 % Sodium Chloride Flush 3 ML SYRINGE IVFLUSH (16:49)
[2023-03-10] MEDS: PHENobarbitaL 15 MG TABLET 45 MG PO (16:49)
[2023-03-10 19:12] VITALS: BP 130/73; PULSE 125; RESP 18; TEMP 36.7; O2SAT 100
[2023-03-10] MEDS: Acetaminophen 325 MG TABLET 650 MG PO (22:10)
[2023-03-11] MEDS: 0.9 % Sodium Chloride Flush 3 ML SYRINGE IVFLUSH ×4 (01:07→20:29)
[2023-03-11 03:38] VITALS: BP 120/75; PULSE 79; RESP 16; TEMP 36.6; O2SAT 97
[2023-03-11] MEDS: Enoxaparin Sodium 40 MG/0.4 ML SYRINGE SUBCUT (05:32)
[2023-03-11 07:35] VITALS: BP 99/71; PULSE 73; RESP 16; TEMP 36.4; O2SAT 98
[2023-03-11] MEDS: Thiamine HCL 100 MG TABLET PO (08:47)
[2023-03-11] MEDS: PHENobarbitaL 15 MG TABLET 45 MG PO ×2 (08:47→20:28)
[2023-03-11] MEDS: Folic Acid 1 MG TABLET PO (08:47)
--- NOTE | 2023-03-11 13:58 | HO.PM.IMPN ---
Subjective Subjective Date of Service: 03/11/23 Interval History: Visual hallucinations have resolved. Maintaining on CIWA scale. No seizures Review of Systems Denies chest pain Denies shortness of breath Denies nausea vomiting diarrhea Denies fever chills Physical Exam Vital Signs: Vital Signs: Last Vital Signs Temp 97.5 F 03/11/23 07:35 Pulse 73 03/11/23 07:35 Resp 16 03/11/23 07:35 BP 99/71 03/11/23 07:35 Pulse Ox 98 03/11/23 07:35 O2 Del Method Room Air 03/11/23 07:35 BMI result Body Mass Index 25.0 Const: Other: Awake alert oriented x3 no acute distress Resp: Other: Clear to auscultation bilaterally no rales rhonchi or wheezes Cardio: Other: No S4; positive S1-S2; S3 murmurs rubs or gallops GI: Other: Soft nontender nondistended normoactive bowel sounds Extrem: Other: No edema bilaterally Objective Data Active Medications Acetaminophen (Acetaminophen 325 Mg Tablet) 650 mg PO Q6H PRN PRN Reason: Pain, Mild (Pain Scale 1-3) Last Admin: 03/10/23 22:10 Dose: 650 mg Documented By: MARISELA Al Hydroxide/Mg Hydroxide (Magnesium Hydrox/Alum Hydrox 30 Ml Oral.Susp) 30 ml PO Q4H PRN PRN Reason: Heartburn Enoxaparin Sodium (Enoxaparin Sodium 40 Mg/0.4 Ml Syringe) 40 mg SUBCUT Q24H [facility] Last Admin: 03/11/23 05:32 Dose: 40 mg Documented By: MARISELA Folic Acid (Folic Acid 1 Mg Tablet) 1 mg PO DAILY [facility] Last Admin: 03/11/23 08:47 Dose: 1 mg Documented By: MIRTA Melatonin (Melatonin 3 Mg Tablet) 6 mg PO BEDTIME PRN PRN Reason: Insomnia Ondansetron HCl (Ondansetron Hcl 4 Mg/2 Ml Vial) 4 mg IVPUSH Q8H PRN PRN Reason: Nausea and Vomiting Pharmacy Consult (Consult Rx Etoh Phenob Im/Po) 10 each MISCELLANE ONCE PRN; Protocol PRN Reason: Consult order Phenobarbital (Phenobarbital 15 Mg Tablet) 45 mg PO BID [facility] Stop: 03/12/23 09:01 Last Admin: 01/20/24 08:47 Dose: 45 mg Documented By: MIRTA Phenobarbital (Phenobarbital 15 Mg Tablet) 15 mg PO BID [facility] Stop: 03/14/23 09:01 Phenobarbital (Phenobarbital 15 Mg Tablet) 15 mg PO DAILY [facility] Stop: 03/16/23 09:01 Sodium Chloride (0.9 % Sodium Chloride Flush 3 Ml Syringe) 3 ml IVFLUSH QSHIFT [facility] Last Admin: 03/11/23 08:50 Dose: 3 ml Documented By: MIRTA Thiamine HCl (Thiamine Hcl 100 Mg Tablet) 100 mg PO DAILY [facility] Last Admin: 03/11/23 08:47 Dose: 100 mg Documented By: MIRTA Labs 03/10/23 06:12 03/10/23 06:12 Assessment and Plan (1) Alcohol use disorder, severe, dependence: Status: Acute Plan This is a 42-year-old female with pertinent history of alcohol use disorder with prior admissions for alcohol withdrawal, mood disorder, alcoholic fatty liver who presents to the emergency department for concerns of alcohol withdrawal. 1.Alcohol use disorder -was experiencing visual hallucinations on admit; admits to smoking cigarettes that she believes was laced with cocaine and question other drugs. Hallucinations resolved -continue phenobarb protocol -observe on CIWA scale 2.Mood disorder -continue home mood stabilizers Lovenox Full code Requires ongoing hospitalization for phenobarb protocol for alcohol withdrawal Quality Stroke Does the patient have a stroke diagnosis?: No VTE Prior VTE?: No VTE Risk Level:: Medical - moderate - high VTE Device Contraindication: Treatment Not Indicated VTE Drug Contraindication: N/A - Med Ordered
[2023-03-11 16:00] VITALS: BP 103/64; PULSE 95; RESP 18; TEMP 36.3; O2SAT 98
--- NOTE | 2023-03-11 16:09 | MHC.RECOVRN ---
Briefly met with pt on 03/10 after consult placed to Addiction Medicine. Pt hallucinating, believes her cat was brought to her room by family. Met with pt on 03/11 at 1500, hallucinations have resolved. Pt able to have a conversation regarding what has happened over the past few days. Feels tired. Will follow up tomorrow with resources.
[2023-03-11 19:41] VITALS: BP 102/63; PULSE 89; RESP 18; TEMP 36.6; O2SAT 98
[2023-03-11] MEDS: Acetaminophen 325 MG TABLET 650 MG PO (20:28)
[2023-03-11] MEDS: Melatonin 3 MG TABLET 6 MG PO (20:28)
[2023-03-12 02:59] VITALS: BP 94/52; PULSE 61; RESP 12; TEMP 36.5; O2SAT 98
[2023-03-12] MEDS: Enoxaparin Sodium 40 MG/0.4 ML SYRINGE SUBCUT (05:43)
[2023-03-12 08:00] VITALS: BP 100/70; PULSE 61; RESP 15; TEMP 36; O2SAT 100
[2023-03-12] MEDS: 0.9 % Sodium Chloride Flush 3 ML SYRINGE IVFLUSH ×3 (09:03→20:40)
[2023-03-12] MEDS: Folic Acid 1 MG TABLET PO (09:04)
[2023-03-12] MEDS: PHENobarbitaL 15 MG TABLET 45 MG PO (09:04)
[2023-03-12] MEDS: Thiamine HCL 100 MG TABLET PO (09:04)
--- NOTE | 2023-03-12 12:48 | MHC.RECOVRN ---
Met with pt to check in and discuss dc plans. Pt sitting in bed, awake, alert, easily engages in conversation. Pt reports she is on the verge of eviction, does have a room secured at a friend's house to go if/when that happens. Pt reports she is consistently looking for employment, is motivated to return to work. 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 In regards to recovery, pt plans to go to AA. Has been to meetings before and finds some of them helpful. 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 Pt is interested in restarting naltrexone and connecting to the [facility]. Discussed Vivitrol, pt reports hesitancy with the injection but reports PO has been helpful in the past. Plan to make appt with [facility] prior to discharge. Pt denies other questions or concerns for t/w.
--- NOTE | 2023-03-12 13:44 | HO.PM.IMPN ---
Subjective Subjective Date of Service: 03/12/23 Interval History: No further visual hallucinations. CIWA 0 Review of Systems Denies chest pain Denies shortness of breath Denies nausea vomiting diarrhea Denies fever chills Physical Exam Vital Signs: Vital Signs: Last Vital Signs Temp 96.8 F 03/12/23 08:00 Pulse 61 03/12/23 08:00 Resp 15 03/12/23 08:00 BP 100/70 03/12/23 08:00 Pulse Ox 100 03/12/23 08:00 O2 Del Method Room Air 03/12/23 08:00 BMI result Body Mass Index 25.0 Const: Other: Awake alert oriented x3 no acute distress Resp: Other: Clear to auscultation bilaterally no rales rhonchi or wheezes Cardio: Other: No S4; positive S1-S2; S3 murmurs rubs or gallops GI: Other: Soft nontender nondistended normoactive bowel sounds Extrem: Other: No edema bilaterally Objective Data Active Medications Acetaminophen (Acetaminophen 325 Mg Tablet) 650 mg PO Q6H PRN PRN Reason: Pain, Mild (Pain Scale 1-3) Last Admin: 03/11/23 20:28 Dose: 650 mg Documented By: MARISELA Al Hydroxide/Mg Hydroxide (Magnesium Hydrox/Alum Hydrox 30 Ml Oral.Susp) 30 ml PO Q4H PRN PRN Reason: Heartburn Enoxaparin Sodium (Enoxaparin Sodium 40 Mg/0.4 Ml Syringe) 40 mg SUBCUT Q24H [facility] Last Admin: 03/12/23 05:43 Dose: 40 mg Documented By: MARISELA Folic Acid (Folic Acid 1 Mg Tablet) 1 mg PO DAILY [facility] Last Admin: 03/12/23 09:04 Dose: 1 mg Documented By: MIRTA Melatonin (Melatonin 3 Mg Tablet) 6 mg PO BEDTIME PRN PRN Reason: Insomnia Last Admin: 03/11/23 20:28 Dose: 6 mg Documented By: MARISELA Ondansetron HCl (Ondansetron Hcl 4 Mg/2 Ml Vial) 4 mg IVPUSH Q8H PRN PRN Reason: Nausea and Vomiting Pharmacy Consult (Consult Rx Etoh Phenob Im/Po) 10 each MISCELLANE ONCE PRN; Protocol PRN Reason: Consult order Phenobarbital (Phenobarbital 15 Mg Tablet) 15 mg PO BID [facility] Stop: 03/14/23 09:01 Phenobarbital (Phenobarbital 15 Mg Tablet) 15 mg PO DAILY [facility] Stop: 03/16/23 09:01 Sodium Chloride (0.9 % Sodium Chloride Flush 3 Ml Syringe) 3 ml IVFLUSH QSHIFT [facility] Last Admin: 03/12/23 09:03 Dose: 3 ml Documented By: MIRTA Thiamine HCl (Thiamine Hcl 100 Mg Tablet) 100 mg PO DAILY [facility] Last Admin: 03/12/23 09:04 Dose: 100 mg Documented By: MIRTA Labs 03/10/23 06:12 03/10/23 06:12 Assessment and Plan (1) Alcohol use disorder, severe, dependence: Status: Acute (2) Alcohol hallucinosis: Status: Acute Plan This is a 42-year-old female with pertinent history of alcohol use disorder with prior admissions for alcohol withdrawal, mood disorder, alcoholic fatty liver who presents to the emergency department for concerns of alcohol withdrawal. 1.Alcohol use disorder -was experiencing visual hallucinations on admit; admits to smoking cigarettes that she believes was laced with cocaine and question other drugs. Hallucinations resolved -continue phenobarb protocol -observe on CIWA scale -DC home in a.m. with family 2.Mood disorder -continue home mood stabilizers Lovenox Full code Requires ongoing hospitalization for phenobarb protocol for alcohol withdrawal Quality Stroke Does the patient have a stroke diagnosis?: No VTE Prior VTE?: No VTE Risk Level:: Medical - moderate - high VTE Device Contraindication: Treatment Not Indicated VTE Drug Contraindication: N/A - Med Ordered
[2023-03-12 15:30] VITALS: BP 107/63; PULSE 83; RESP 18; TEMP 36.4; O2SAT 98
[2023-03-12 19:00] VITALS: BP 107/64; PULSE 82; RESP 18; TEMP 36.4; O2SAT 98
[2023-03-12] MEDS: PHENobarbitaL 15 MG TABLET PO (20:40)
[2023-03-12] MEDS: Melatonin 3 MG TABLET 6 MG PO (20:40)
[2023-03-13 03:07] VITALS: BP 99/68; PULSE 61; RESP 16; TEMP 36.4; O2SAT 97
[2023-03-13] MEDS: Enoxaparin Sodium 40 MG/0.4 ML SYRINGE SUBCUT (05:56)
[2023-03-13 07:44] VITALS: BP 105/69; PULSE 86; RESP 18; TEMP 36.1; O2SAT 99
[2023-03-13] MEDS: 0.9 % Sodium Chloride Flush 3 ML SYRINGE IVFLUSH (09:37)
[2023-03-13] MEDS: Folic Acid 1 MG TABLET PO (09:37)
[2023-03-13] MEDS: Thiamine HCL 100 MG TABLET PO (09:38)
[2023-03-13] MEDS: PHENobarbitaL 15 MG TABLET PO (09:38)
--- NOTE | 2023-03-13 11:22 | PM.DS ---
DS: Providers Provider Date of Service: 03/13/23 Date of admission: 03/10/23 10:05 Date of discharge: 03/13/23 Primary care physician: Ollie Pulliam PA-C Consults: 03/10/23 01:04 Addiction Medicine Routine Consulting Provider: Esteban Covering Reason for consultation: alcohol use disorder DS: Diagnosis Discharge Diagnosis (1) Alcohol use disorder, severe, dependence: Status: Acute (2) Alcohol hallucinosis: Status: Acute DS: Summary Hospital Course Hospital Course: 42-year-old female with pertinent history of alcohol use disorder with prior admissions for alcohol withdrawal, mood disorder, alcoholic fatty liver who presents to the emergency department for concerns of alcohol withdrawal. Patient states her last drink was 4 hours prior to presentation. She usually drinks vodka and wine. She has been having tremors, nausea, sweating and visual hallucinations since she stopped drinking. No fever, chills, chest discomfort, palpitations, shortness of breath, abdominal pain, changes in urinary or bowel habits. In the emergency department, patient was initiated on phenobarb protocol. Hospital course Patient admitted to general medical floor and maintained on phenobarb protocol. Over the next 48 hours hallucinations dissipated. When further queried about the cocaine in her urine she states that she was with somebody smoking cigarettes and they were putting a substance in the cigarettes. She states she did not sleep for 3 days; likely cocaine. She is instructed to avoid alcohol and drugs at all cost. She will be discharged directly to the addiction Medicine office and they will orchestrate a partial hospitalization program for her. She never had seizures during her hospitalization and her CIWA scale has been 0 for 48 hours Time Attestation Discharge coordination time: Greater than 30 minutes Quality: Safe Use of Opioids Does Pt have an Active Cancer Diagnosis on the Problem List?: No Quality: Stroke Does the patient have a stroke diagnosis?: No Physical Exam Vital Signs: Vital Signs: Last Vital Signs Temp 96.9 F 03/13/23 07:44 Pulse 86 03/13/23 07:44 Resp 18 03/13/23 07:44 BP 105/69 03/13/23 07:44 Pulse Ox 99 03/13/23 07:44 O2 Del Method Room Air 03/13/23 07:44 BMI result Body Mass Index 25.0 Const: Other: Awake alert oriented x3 no acute distress Resp: Other: Clear to auscultation bilaterally no rales rhonchi or wheezes Cardio: Other: No S4; positive S1-S2; S3 murmurs rubs or gallops GI: Other: Soft nontender nondistended normoactive bowel sounds Extrem: Other: No edema bilaterally DS: Data Data Completed and Pending Completed studies during hospitalization [Text1]: Procedures Detoxification Services for Substance Abuse Treatment (01/20/23) Transfusion of Nonautologous Platelets into Peripheral Vein, Percutaneous Approach (12/07/22) Discharge Plan Discharge Anticipated Discharge Date/Time: 03/13/23 11:20 Patient Disposition: Home, Self-Care Discharge Diagnosis: Alcohol hallucinosis Referrals: Ollie Pulliam PA-C [Primary Care Provider] - 1 Week Discharge Medications: Continued diclofenac sodium 1 % gel 2 g topical QID PRN (Reason: pain) clonidine HCl 0.1 mg tablet 0.1 mg PO BID PRN (Reason: Anxiety) tramadol 50 mg tablet 50 mg PO BID PRN (Reason: pain) hyoscyamine sulfate 0.125 mg tablet,disintegrating 0.125 mg PO BID PRN (Reason: Abdominal Pain) lorazepam [Ativan] 1 mg tablet 1 mg PO Q4-6H PRN (Reason: alcohol withdrawal) Qty: 20 0RF prazosin 1 mg capsule 1 mg PO BEDTIME propranolol 10 mg tablet 10 mg PO TID buspirone 10 mg tablet 10 mg PO BID naltrexone 50 mg tablet 50 mg PO DAILY hydroxyzine HCl 25 mg tablet 25 mg PO BEDTIME 90 Days Qty: 90 1RF Discharge Orders: Discharge Order (Routine); Ordered 03/13/23 Ordered By: Jean Mauro Diet: Advance to usual diet Activity on Discharge: As tolerated Stand Alone Forms: Patient Portal Discharge page Care Plan Goals: Resume all pre-hospital medications Health Concerns: Avoid alcohol at all costs Plan of Treatment: Follow-up with addiction Medicine as planned Assessment: See discharge summary
--- NOTE | 2023-03-13 11:30 | MHC.CM.PN ---
PT WILL DC TODAY DIRECTLY TO HER [place] [facility] SHE WILL NEED LYFT TRANSPORT HOME, RECOVERY NURSE AWARE
== END 2023-03-13 13:15 | disposition home or self-care (01) | DRG 775 ==
LOC: HO.ED 03-10 00:55 → HO.EDOVER 03-10 01:13 → HO.S3 03-10 11:12
PROVIDERS: Admitting Provider Student in an Organized Health Care Education/Training Program; Emergency Provider Internal Medicine; PCP Physician Assistant; Visit Provider Hospitalist
DX: F10.231 Alcohol dependence with withdrawal delirium (principal); F39 Unspecified mood [affective] disorder; K70.0 Alcoholic fatty liver; F17.210 Nicotine dependence, cigarettes, uncomplicated; Z71.6 Tobacco abuse counseling; Z79.899 Other long term (current) drug therapy
CPT/HCPCS: 36415; 80048; 80053; 80307; 81003; 83735; 85025; 99285; J1650; J2560

== ENCOUNTER → 2023-03-10 01:03 | Outpatient (BNV) | payer OTHER, SELFPAY | PROVIDERS: Admitting Provider Student in an Organized Health Care Education/Training Program; Emergency Provider Internal Medicine; PCP Physician Assistant; Visit Provider Student in an Organized Health Care Education/Training Program | DX: F10.251 Alcohol dependence with alcohol-induced psychotic disorder with hallucinations (principal) | CPT/HCPCS: 99222; 99232; 99239; 99499 ==

== ENCOUNTER 2023-03-13 13:20 | Outpatient (AMB) | payer OTHER, SELFPAY ==
--- NOTE | 2023-03-13 13:22 | A.OFFVISCC_ITS ---
Intake Vital Signs 03/13/23 13:28 BP 110/72 Blood Pressure Location Lt radial Position Sitting Pulse 105 H Pulse Source Pulse Oximeter Pulse Oximetry (%) 98 Oxygen Delivery Method Room Air Intake Visit Reasons: MAT Intake/Walk in Intake Note: the patient presents as a walk in / mat intake Allergies amoxicillin [From Augmentin] Allergy (Intermediate, Verified 03/13/23 13:28) Abdominal Pain clavulanic acid [From Augmentin] Allergy (Intermediate, Verified 03/13/23 13:28) Abdominal Pain gabapentin Allergy (Intermediate, Verified 03/13/23 13:28) Dizziness Sulfa (Sulfonamide Antibiotics) [SULFA (SULFONAMIDE ANTIBIOTICS)] Allergy (Mild, Verified 03/13/23 13:28) RASH magnesium Adverse Reaction (Verified 03/13/23 13:28) Diarrhea Do you need a note to return to daycare/school/sports/work: No HPI MAT Intake/Walk in HPI Details Patient presents for intake and evaluation Discharged from medical floor earlier this morning following admission for AMS possibly from cocaine (unknowingly ingested) and alcohol withdrawal. Hospital notes reviewed and patient also seen by this literary writer while inpatient Substance Use and Treatment History: -Has been drinking for several years, lucas elder states it became an issue approx 4 years ago when she began drinking nips -drinking increased over time and patien t lost her job and eventually custody of her children (now 15 and 23) -4 [facility] admissions -9 months longest period in recovery -numerous ats admissions -[facility] admissions -PO naltrexone while working at the [facility] 2 years ago February 21 discharged from [facility] (30 days) Identifies down time as a major trigger She lives alone at this time, however has been evicted from her apt and will be moving in with a friend down the street. Limited Recovery Supports Discussed goals for this week--patient states she does not want to drink and wants to see her kids on Monday as she has planned. Reviewed strategies for this--patient somewhat ambivalent during this discussion. Agreeable to Campral --has never taken it before. Reviewed dosing, possible side effects and goals of medication. PFSH Medical History Alcohol use disorder, severe, dependence Closed fracture of greater tuberosity of right humerus Alcohol use disorder, moderate, dependence Pancytopenia Alcohol withdrawal seizure Diverticulitis Pelvic abscess in female Anxiety Alcohol abuse Surgical History No pertinent past surgical history Family History Father Medical history unknown Mother Medical history unknown Paternal Grandfather Cancer Sister Epilepsy Daughter In good health Son In good health Other Substance use disorder Social History Household Members: None Housing: Apartment Do you presently have visiting nurse or other home services: No Unable to assess alcohol history related to: Refusing to respond Alcohol intake: current Alcohol intake frequency: 3 or more drinks per day Alcohol type: wine Comment: REFUSING ALARM Patient Tobacco Use Status: Current everyday Tobacco user Tobacco use type: Cigarette e-Cigarette/Vaping Use: Never Used Second Hand Smoke Exposure: No Substance Use Type: Marijuana Advance Directives Date on File: 01/25/21 service: No Current occupational status: unemployed Current occupation: right hand dominant Cognitive needs: No Hearing needs: No Vision needs: No Female Reproductive History Menstrual Age of Menarche: 11 Review of Systems Psych Reports anxiety Physical Exam Vital Signs: Last Vital Signs Pulse 105 H 03/13/23 13:28 BP 110/72 03/13/23 13:28 Pulse Ox 98 03/13/23 13:28 Oxygen Delivery Method Room Air 03/13/23 13:28 Const General: cooperative and no acute distress Nutritional Appearance: average body habitus Orientation/consciousness: patient oriented x3 Limitations: no limitations Neuro General: patient oriented x3 Psych Appearance: grossly normal Speech and movement: Clear speech present Affect: Anxious affect present Assessment & Plan Assessment & Plan (1) Alcohol use disorder, severe, dependence: Code(s): F10.20 - Alcohol dependence, uncomplicated Plan: * trial campral * follow up one week * relapse prevention discussion Medications: New acamprosate 666 mg (2 x 333 mg) PO TID 60 tabs 0RF Coding Level of Care Code New Pt Level 4 (65240) Diagnoses Alcohol use disorder, severe, dependence F10.20
[2023-03-13 13:28] VITALS: BP 110/72; PULSE 105; O2SAT 98
== END 2023-03-13 14:31 | disposition home or self-care (01) ==
PROVIDERS: PCP Physician Assistant; Visit Provider Nurse Practitioner Psychiatric/Mental Health
DX: F10.20 Alcohol dependence, uncomplicated (principal)
CPT/HCPCS: 99214

== ENCOUNTER → 2023-03-13 13:20 | Outpatient (BNVA) | payer OTHER, SELFPAY | PROVIDERS: PCP Physician Assistant; Visit Provider Nurse Practitioner Psychiatric/Mental Health | DX: F10.20 Alcohol dependence, uncomplicated (principal) | CPT/HCPCS: 99212 ==

== ENCOUNTER 2023-03-16 09:02 | Outpatient (AMB) | payer OTHER, SELFPAY ==
--- NOTE | 2023-03-16 09:01 | A.OFFVISCC_ITS ---
Intake Intake Visit Reasons: MAT Visit Allergies amoxicillin [From Augmentin] Allergy (Intermediate, Verified 03/13/23 13:28) Abdominal Pain clavulanic acid [From Augmentin] Allergy (Intermediate, Verified 03/13/23 13:28) Abdominal Pain gabapentin Allergy (Intermediate, Verified 03/13/23 13:28) Dizziness Sulfa (Sulfonamide Antibiotics) [SULFA (SULFONAMIDE ANTIBIOTICS)] Allergy (Mild, Verified 03/13/23 13:28) RASH magnesium Adverse Reaction (Verified 03/13/23 13:28) Diarrhea HPI MAT Visit HPI Details Patient presents for AUD treatment follow up via telehealth Reports doing well in terms of not drinking any alcohol since discharge Packing, preparing to move--has been taking medications as prescribed PCP appt on Mar 29. PFSH Medical History Alcohol use disorder, severe, dependence Closed fracture of greater tuberosity of right humerus Alcohol use disorder, moderate, dependence Pancytopenia Alcohol withdrawal seizure Diverticulitis Pelvic abscess in female Anxiety Alcohol abuse Surgical History No pertinent past surgical history Family History Father Medical history unknown Mother Medical history unknown Paternal Grandfather Cancer Sister Epilepsy Daughter In good health Son In good health Other Substance use disorder Social History Household Members: None Housing: Apartment Do you presently have visiting nurse or other home services: No Unable to assess alcohol history related to: Refusing to respond Alcohol intake: current Alcohol intake frequency: 3 or more drinks per day Alcohol type: wine Comment: REFUSING ALARM Patient Tobacco Use Status: Current everyday Tobacco user Tobacco use type: Cigarette e-Cigarette/Vaping Use: Never Used Second Hand Smoke Exposure: No Substance Use Type: Marijuana Advance Directives Date on File: 01/25/21 service: No Current occupational status: unemployed Current occupation: right hand dominant Cognitive needs: No Hearing needs: No Vision needs: No Female Reproductive History Menstrual Age of Menarche: 11 Review of Systems Const Reports as per HPI Assessment & Plan Assessment & Plan (1) Alcohol use disorder, severe, dependence: Code(s): F10.20 - Alcohol dependence, uncomplicated Plan: * relapse prevention discussion * continue medications as prescribed * follow up one week Medications: New prazosin 1 mg PO BEDTIME 30 caps 0RF Telehealth Telehealth Location of provider rendering services: practice address Location of patient: address on file Patient Identification confirmed using: Name, : Yes Telehealth method: voice only Patient verbally consented to treatment: Yes Patient verbally consented to billing insurance company: Yes Coding Level of Care Code Tele Est Pt Level 3 (48594) Diagnoses Alcohol use disorder, severe, dependence F10.20 Time Spent (min) 30 Comment 20 mins with patient, remainder on chart review and documentation
== END 2023-03-16 09:23 | disposition home or self-care (01) ==
PROVIDERS: PCP Physician Assistant; Visit Provider Nurse Practitioner Psychiatric/Mental Health
DX: F10.20 Alcohol dependence, uncomplicated (principal)
CPT/HCPCS: 99213

== ENCOUNTER → 2023-03-16 09:02 | Outpatient (BNVA) | payer OTHER, SELFPAY | PROVIDERS: PCP Physician Assistant; Visit Provider Nurse Practitioner Psychiatric/Mental Health ==

== ENCOUNTER 2023-03-22 13:28 | Outpatient (AMB) | payer OTHER, SELFPAY ==
--- NOTE | 2023-03-22 13:29 | A.OFFVISCC_ITS ---
Intake Intake Visit Reasons: MAT Visit Allergies amoxicillin [From Augmentin] Allergy (Intermediate, Verified 03/13/23 13:28) Abdominal Pain clavulanic acid [From Augmentin] Allergy (Intermediate, Verified 03/13/23 13:28) Abdominal Pain gabapentin Allergy (Intermediate, Verified 03/13/23 13:28) Dizziness Sulfa (Sulfonamide Antibiotics) [SULFA (SULFONAMIDE ANTIBIOTICS)] Allergy (Mild, Verified 03/13/23 13:28) RASH magnesium Adverse Reaction (Verified 03/13/23 13:28) Diarrhea HPI MAT Visit HPI Details Patient presents for follow up via telehealth Still moving Has not started Campral yet, dizzy episode today Reports irritability and anxiety around 6-7pm every evening--recognized that around this time Discussed strategies to address this, many of which patient was already doing --distraction, checking for meetings [facility] Medical History Alcohol use disorder, severe, dependence Closed fracture of greater tuberosity of right humerus Alcohol use disorder, moderate, dependence Pancytopenia Alcohol withdrawal seizure Diverticulitis Pelvic abscess in female Anxiety Alcohol abuse Surgical History No pertinent past surgical history Family History Father Medical history unknown Mother Medical history unknown Paternal Grandfather Cancer Sister Epilepsy Daughter In good health Son In good health Other Substance use disorder Social History Household Members: None Housing: Apartment Do you presently have visiting nurse or other home services: No Unable to assess alcohol history related to: Refusing to respond Alcohol intake: current Alcohol intake frequency: 3 or more drinks per day Alcohol type: wine Comment: REFUSING ALARM Patient Tobacco Use Status: Current everyday Tobacco user Tobacco use type: Cigarette e-Cigarette/Vaping Use: Never Used Second Hand Smoke Exposure: No Substance Use Type: Marijuana Advance Directives Date on File: 01/25/21 service: No Current occupational status: unemployed Current occupation: right hand dominant Cognitive needs: No Hearing needs: No Vision needs: No Female Reproductive History Menstrual Age of Menarche: 11 Review of Systems Const Reports as per HPI and Reports no additional complaints Assessment & Plan Assessment & Plan (1) Alcohol use disorder, severe, dependence: Code(s): F10.20 - Alcohol dependence, uncomplicated Plan: * relapse prevention discussion * continue medications as prescribed * follow up one week Telehealth Telehealth Location of provider rendering services: practice address Location of patient: address on file Patient Identification confirmed using: Name, : Yes Telehealth method: voice only Patient verbally consented to treatment: Yes Patient verbally consented to billing insurance company: Yes Coding Level of Care Code Tele Est Pt Level 3 (95535) Diagnoses Alcohol use disorder, severe, dependence F10.20 Time Spent (min) 30 Comment 20 mins with patient, remainder on chart review and documentation
== END 2023-03-22 14:05 | disposition home or self-care (01) ==
PROVIDERS: PCP Physician Assistant; Visit Provider Nurse Practitioner Psychiatric/Mental Health
DX: F10.20 Alcohol dependence, uncomplicated (principal)
CPT/HCPCS: 99213

== ENCOUNTER → 2023-03-22 13:28 | Outpatient (BNVA) | payer OTHER, SELFPAY | PROVIDERS: PCP Physician Assistant; Visit Provider Nurse Practitioner Psychiatric/Mental Health ==

== ENCOUNTER 2023-03-29 07:47 | Outpatient (AMB) | payer OTHER, SELFPAY ==
--- NOTE | 2023-03-29 07:56 | A.OFFPC_ITS ---
Vital Signs 03/29/23 07:57 Height 5 ft 4 in Weight 53.977 kg BMI 20.4 BP 104/70 Blood Pressure Location Lt brachial Position Sitting Pulse 77 Pulse Source Pulse Oximeter Pulse Oximetry (%) 100 Oxygen Delivery Method Room Air Intake Visit Reasons: [facility] Alcohol use disorder 03/09-03/13 Intake Note: Patient here for [facility] Hospital follow up 03/09 to 03/13 Alcohol use disorder6 [employer] Required: No Accompanied by: Self / Same As Patient Allergies amoxicillin [From Augmentin] Allergy (Intermediate, Verified 03/29/23 07:58) Abdominal Pain clavulanic acid [From Augmentin] Allergy (Intermediate, Verified 03/29/23 07:58) Abdominal Pain gabapentin Allergy (Intermediate, Verified 03/29/23 07:58) Dizziness Sulfa (Sulfonamide Antibiotics) [SULFA (SULFONAMIDE ANTIBIOTICS)] Allergy (Mild, Verified 03/29/23 07:58) RASH magnesium Adverse Reaction (Verified 03/29/23 07:58) Diarrhea Tobacco use date assessed: 03/29/23 Dental Screening Dental Screen Date: 03/29/23 Did you have a dental visit in the last 12 months?: Yes Did you have a dental problem in the last 6 months where you did not have access to dental care?: No Was dental information given to patient?: Patient has dentist HPI HPI Comments History of Present Illness Details 42-year-old female with history of alcoh ol use disorder, mood disorder, alcoholic fatty liver presents to the office today for hospital discharge follow-up. She was admitted to [facility] from 03/10-03/13 for management of acute alcohol withdrawal. She was desiring detox at the time of admission. She was treated with phenobarbital per protocol and monitored on CIWA, scoring 0 on discharge. She had also tested positive for cocaine but adamently denied use, stating rolled cigarette from friend was likely laced and did not sleep for 3 days. She was seen by addiction medicine outpt and was started on campral though had not started this until several days ago. Today, she reports she is doing very well. Has not had any alcohol since date of admission 03/10 and is feeling very positive about this. States she has lost some weight and is eating healthier. She has also been engaging in acitvities that she enjoys such as cooking with her family. She has been able to focus more on family, hobbies such as drawing, and is also packing as she is being removed from her apartment by her landlord. She does have safe housing options available including a room in a friend's house or with her son. However, she is placing applications for a sober house but is concerned about her cat. However we did discuss that maybe her son could take the CT. Her last stay in her apartment could be 04/[address] Despite this stress, she has been feeling well and still has not consumed alcohol. She has good social supports including her mother and her daughter and has been cooking for her family. She also takes clonidine to help with anxiety. 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 Coco is also in the process of getting her resume together to apply for jobs with [employer]. Still experiencing pain in the right humerus which was fractured 12/07. No surgical intervention was required. She is still experiencing pain with ext ension and external rotation. She is using 25 mg tramadol and naproxen prn. Ongoing PT. PFSH Medical History Alcohol use disorder, severe, dependence Closed fracture of greater tuberosity of right humerus Pancytopenia Alcohol withdrawal seizure Diverticulitis Pelvic abscess in female Anxiety Alcohol abuse Surgical History No pertinent past surgical history Family History Father Medical history unknown Mother Medical history unknown Paternal Grandfather Cancer Sister Epilepsy Daughter In good health Son In good health Other Substance use disorder Social History Household Members: None Housing: Apartment Do you presently have visiting nurse or other home services: No Unable to assess alcohol history related to: Refusing to respond Alcohol intake: current Alcohol intake frequency: 3 or more drinks per day Alcohol type: wine Comment: REFUSING ALARM Patient Tobacco Use Status: Current everyday Tobacco user Tobacco use type: Cigarette Cigarettes Per Day: 5 e-Cigarette/Vaping Use: Never Used Second Hand Smoke Exposure: No Substance Use Type: Marijuana Advance Directives Date on File: 01/25/21 service: No Current occupational status: unemployed Current occupation: right hand dominant Cognitive needs: No Hearing needs: No Vision needs: No Female Reproductive History Menstrual Age of Menarche: 11 Questionnaire PHQ-9 Over the last 2 weeks, how often have you been bothered by any of the following problems? 1. Little interest or pleasure in doing things: not at all 2. Feeling down, depressed, or hopeless: several days 3. Trouble falling or staying asleep, or sleeping too much: more than half the days 4. Feeling tired or having little energy: more than half the days 5. Poor appetite or overeating: not at all 6. Feeling bad about yourself - or that you are a failure or have let yourself or your family down: not at all 7. Trouble concentrating on things, such as reading the newspaper or watching television: not at all 8. Moving or speaking so slowly that other people could have noticed. Or the opposite - being so fidgety or restless that you have been moving around a lot more than usual: not at all 9. Thoughts that you would be better off or of hurting yourself in some way: not at all Total score: 5 Source: Developed by Drs. Aries Dawkins, Destiny Lomas, Guy Plata and colleagues, with an educational meño from [employer] App. Thrive Questionnaire Date Thrive assessed: 03/29/23 I am a: Patient What is your living situation today?: I have a steady place to live Within the past 12 months, did the food you bought not last and you didn't have the money to get more?: Never true Within the past 12 months, did you worry whether your food would run out before you got money to buy more?: Never true Do you have trouble paying for medicines?: No Do you have trouble getting transportation to medical appointments?: No Do you have trouble paying your heating and electricity bill?: No Do you have trouble taking care of your child, family member or friend?: No Do you have trouble with day-to-day activities such as bathing, preparing meals, shopping, managing finances, etc.?: No Are you currently unemployed and looking for a job?: No Are you interested in more education?: No Please select the resources that you would like help with: None Currently or been in a relationship where the following occur: no concerns reported THRIVE Score: 0 AUDIT C Alcohol Use Questionnaire (AUDIT-C) 1. How often do you have a drink containing alcohol?: Never (has not had anything to drink since discharge) Total Score: 0 SENA-7 AMB Questionnaire SENA-7 Date SENA - 7 assessed: 03/29/23 Feeling nervous, anxious, or on edge: 1 = Several days Not being able to stop or control worryin = Not at all Worrying too much about different things: 0 = Not at all Trouble relaxin = Not at all Being so restless that it is hard to sit still: 0 = Not at all Becoming easily annoyed or irritable: 0 = Not at all Feeling afraid as if something awful might happen: 0 = Not at all Total SENA-7 score (0-4 normal; 5-9 mild; 10-14 moderate; 15-21 severe): 1 Source: Developed by Drs. Aries Dawkins, Destiny Lomas, Guy Plata and colleagues, with an educational meño from [employer] App. Review of Systems Const All systems reviewed & are unremarkable except as noted in HPI and below Physical exam (Primary Care) Vital Signs: Last Vital Signs Pulse 77 03/29/23 07:57 BP 104/70 03/29/23 07:57 Pulse Ox 100 03/29/23 07:57 Oxygen Delivery Method Room Air 03/29/23 07:57 BMI result Body Mass Index 20.4 Tobacco/Smoking Status: Tobacco use Status Tobacco use date assessed 03/29/23 03/29/23 08:05 Patient Tobacco Use Status Current everyday Tobacco 03/29/23 08:05 Tobacco use type Cigarette 03/29/23 08:05 e-Cigarette/Vaping Use Never Used 03/29/23 08:05 PHQ-9: PHQ-9 Score PHQ-9: Total score 5 04/05/23 17:57 Thrive Assessment: Date of Thrive Assessment Date Thrive assessed 03/29/23 03/29/23 08:05 Currently or been in a relationship where the following occur: no concerns reported Const Other: Constitutional - Awake and Alert, No apparent distress Eyes - PERRLA, EOMI Cardiovascular - S1S2, RRR, No edema Respiratory - Normal lung expansion, Normal respiratory effort, No respiratory distress, CTA bilaterally Extremities - no calf tenderness bilaterally, no swelling. RUE- no bony deformity, no swelling, effusion. TTP across anterior deltoid and proximal humerus. Full active ROM Skin - Warm/Dry Neurological - Alert & oriented x3 Psychological - Appropriate affect Results Reviewed Results Reviewed: cbc, bmp, u tox, h&p, discharge summary, addiction med consult and outpt notes, ortho note, xray humerus Assessment and Plan Assessment & Plan (1) Alcohol use disorder, severe, dependence: Code(s): F10.20 - Alcohol dependence, uncomplicated Plan: In early remission. She is congratulated on her success with sobriety thus far. She looks very well and is in good spirits with optimistic mood. SHe has done well aligning herself with healthy supports including family and professional organizations. I have encouraged her to continue with AA meetings, but to also get a sponsor who can continue to support her as a peer in ways family may not be able to. She will continue following with Kerrie Mulligan and team and take campral as prescribed. She has safe housing options and is encouraged to place application to sober house to continue with her sobriety. Encouraged to reach out to the office for any additional asistance she may need. (2) Fracture of greater tuberosity of right humerus: Code(s): S42.251A - Displaced fracture of greater tuberosity of right humerus, initial encounter for closed fracture Qualifiers: Encounter type: initial encounter Fracture alignment: nondisplaced Fracture type: closed Qualified Code(s): S42.254A - Nondisplaced fracture of greater tuberosity of right humerus, initial encounter for closed fracture Plan: Last xray of R humerus revealed healed fracture. Reviewed last ortho note 02/23. She should continue with physical therapy as recommended. Continue taking naproxen 500mg BID prn and recommend adding tylenol up to 4g/day for pain management and to avoid taking tramadol if possible to avoid narcotic medication. Follow up with ortho as scheduled. Coding Level of Care Code Est Pt Level 5 (07992) Diagnoses Alcohol use disorder, severe, dependence F10.20 Closed nondisplaced fracture of greater tuberosity of right humerus, initial enc ounter S42.254A Encounter type: initial encounter Fracture alignment: nondisplaced Fracture type: closed Time Spent (min) 45 Comment time spent reviewing above, time with pt, documentation time
[2023-03-29 07:57] VITALS: BP 104/70; PULSE 77; O2SAT 100; BMI 20.4
== END 2023-03-29 08:36 | disposition home or self-care (01) ==
PROVIDERS: PCP Physician Assistant; Visit Provider Physician Assistant
DX: F10.20 Alcohol dependence, uncomplicated (principal); S42.254A Nondisplaced fracture of greater tuberosity of right humerus, initial encounter for closed fracture
CPT/HCPCS: 99215

== ENCOUNTER 2023-04-06 09:56 | Outpatient (REF) | payer OTHER, SELFPAY | END 2023-04-06 09:57 | disposition home or self-care (01) | LOC: HO.HOSX 09:56 | PROVIDERS: Visit Provider Physician Assistant | DX: Z13.89 Encounter for screening for other disorder (principal) ==

== ENCOUNTER 2023-04-09 19:24 | Inpatient (IN) | payer OTHER, SELFPAY ==
--- NOTE | ~2023-04-09 | CT_ITS ---
EXAMINATION: CT CHEST WITHOUT CONTRAST CLINICAL INFORMATION: Right-sided rib pain after fall COMPARISON: None available. TECHNIQUE: Multidetector volumetric CT imaging of the chest was done. Axial MIP volume rendering provided. Sagittal and coronal reformatted images were obtained. This CT examination was performed using dose optimization techniques as appropriate, variously including the following: *Automated exposure control *Adjustment of mA and/or kV according to patient size (this includes techniques or standardized protocols for targeted exams where dose is matched to indication/reason for exam; i.e. extremities or head) *Use of iterative reconstruction technique DLP: 117 mGy-cm FINDINGS: LUNGS: The lungs are clear with no evidence of inflammation or nodules. MEDIASTINUM: The mediastinum is normal. CORONARY ARTERY CALCIFICATION: None visualized on this study. PLEURA: There is no pleural effusion. No pleural mass or thickening. AXILLA: No lymphadenopathy. UPPER ABDOMEN: Unremarkable. OSSEOUS STRUCTURES: No displaced rib fractures seen. Sternum appears intact. No acute bony abnormality in the spine CT/CT chest wo IV con IMPRESSION: No acute bony abnormality. No evidence for pneumothorax or pleural effusion. Fleischner guidelines were followed.
--- NOTE | ~2023-04-09 | XR_ITS ---
EXAMINATION: XR HAND/WRIST, RIGHT CLINICAL INFORMATION: Deformity. Pain. COMPARISON: None TECHNIQUE: Four views of the right hand and wrist. FINDINGS: The bones and soft tissues are normal. No fracture. Alignment is anatomic. Joint spaces are maintained. No erosions or soft tissue calcifications. XR/XR hand wrist RT IMPRESSION: Normal radiographs of the hand and wrist.
--- NOTE | ~2023-04-09 | XR_ITS ---
EXAMINATION: XR SHOULDER, RIGHT CLINICAL INFORMATION: Pain, fall COMPARISON: Right shoulder 02/23/2023 TECHNIQUE: AP external rotation, Grashey, scapular Y, and axillary views of the right shoulder. FINDINGS: The bones are intact. Previously seen subtle contour abnormality of the greater tuberosity is again noted, however, less obvious compared to as initially seen consistent with healing. No acute finding. Glenohumeral and acromioclavicular alignment is anatomic with normal joint space. No abnormal soft tissue calcifications. XR/XR shoulder RT min 2V IMPRESSION: Healing fracture of the greater tuberosity of the humeral head.
[2023-04-09 19:33] VITALS: BP 124/78; BP 134/91; PULSE 100; PULSE 85; RESP 16; TEMP 36.9; O2SAT 100; O2SAT 98; BMI 19.6
[2023-04-09 20:00] LABS: MANUAL DIFF FLAG NO
[2023-04-09 20:01] LABS: Basophils Percent Auto 0.4 % (0-2); Eosinophils Absolute Auto 0.3 X10*3/uL (0.0-0.4); Eosinophils Percent Auto 3.3 % (0-4); Hematocrit 41.1 % (37.0-47.0); Hemoglobin 13.8 g/dl (12.0-16.0); Imm Gran Abs Auto 0.02 X10*3/uL (0.00-0.03); Imm Gran Pct Auto 0.2 % (0.0-0.4); Lymphocytes Absolute Auto 2.6 X10*3/uL (1.2-4.9); Lymphocytes Percent Auto 25.7 % (20-40); Mean Corpuscular HGB Conc 33.6 g/dl (31.0-35.0); Mean Corpuscular Hemoglobin 27.4 pg (27.0-33.0); Mean Corpuscular Volume 81.5 fL (80.0-98.0); Mean Platelet Volume 9.7 fL (9.4-12.3); Monocytes Absolute Auto 0.6 X10*3/uL (0.1-1.2); Neutrophils Absolute Auto 6.5 x10*3/uL (2.0-8.3); Neutrophils Percent Auto 64.4 % (45-73); Platelet Count 309 X10*3/uL (160-400); Red Blood Count 5.04 X10*6/uL (4.20-5.50); Red Cell Distribution Width 16.2 % (11.0-16.0); White Blood Count 10.1 X10*3/uL (4.8-10.8)
--- NOTE | 2023-04-09 20:21 | ED_ITS ---
HPI - Fall General Chief Complaint: Fall Stated Complaint: POSSIBLE R WRIST FX FROM FALL,R FLANK PAIN Time Seen by Provider: 04/09/23 20:00 Source: patient Mode of arrival: EMS History of Present Illness HPI Narrative: 42-year-old female who arrives via EMS after she sustained a mechanical fall and caught herself on her right upper extremity but states that she struck her right chest wall in has complaints about right wrist pain as well as right chest wall pain, she denies striking her head or loss of consciousness. Related Data Home Medications Medication Instructions Recorded Confirmed clonidine HCl 0.1 mg tablet 0.1 mg PO BID PRN Anxiety 01/15/23 03/10/23 diclofenac sodium 1 % topical gel 2 g topical QID PRN pain 01/15/23 03/10/23 hyoscyamine sulfate 0.125 mg 0.125 mg PO BID PRN Abdominal Pain 01/15/23 03/10/23 disintegrating tablet buspirone 10 mg tablet 10 mg PO BID 03/10/23 03/10/23 propranolol 10 mg tablet 10 mg PO TID 03/10/23 03/10/23 multivitamin 1 tab PO DAILY 03/29/23 Previous Rx's Medication Instructions Recorded hydroxyzine HCl 25 mg tablet 25 mg PO BEDTIME 90 days #90 tabs 01/05/23 lorazepam 1 mg tablet (Ativan) 1 mg PO Q4-6H PRN alcohol 03/09/23 withdrawal #20 tabs acamprosate 333 mg tablet,delayed 666 mg (2 x 333 mg) PO TID #60 tabs 03/13/23 release prazosin 1 mg capsule 1 mg PO BEDTIME #90 caps 03/20/23 tramadol 50 mg tablet 50 mg PO BID PRN pain 4 days #8 03/28/23 tabs Allergies Allergy/AdvReac Type Severity Reaction Status Date / Time amoxicillin [From Augmentin] Allergy Intermediate Abdominal Verified 03/29/23 07:58 Pain clavulanic acid Allergy Intermediate Abdominal Verified 03/29/23 07:58 [From Augmentin] Pain gabapentin Allergy Intermediate Dizziness Verified 03/29/23 07:58 Sulfa (Sulfonamide Allergy Mild RASH Verified 03/29/23 07:58 Antibiotics) [SULFA (SULFONAMIDE ANTIBIOTICS)] magnesium AdvReac Diarrhea Verified 03/29/23 07:58 Review of Systems 2 Review of Systems: Pertinent positives and negatives as stated in HPI PMFSH Past Medical History Source: nursing notes reviewed Medical History Alcohol use disorder, severe, dependence Closed fracture of greater tuberosity of right humerus Pancytopenia Alcohol withdrawal seizure Diverticulitis Pelvic abscess in female Anxiety Alcohol abuse Surgical History No pertinent past surgical history Family History Family History Father Medical history unknown Mother Medical history unknown Paternal Grandfather Cancer Sister Epilepsy Daughter In good health Son In good health Other Substance use disorder Social History Social History Household Members: None Housing: Apartment Do you presently have visiting nurse or other home services: No Unable to assess alcohol history related to: Refusing to respond Alcohol intake: current Alcohol intake frequency: 3 or more drinks per day Alcohol type: wine and hard liquor Comment: REFUSING ALARM Patient Tobacco Use Status: Current everyday Tobacco user Tobacco use type: Cigarette Cigarettes Per Day: 5 Smoked in Last 30 Days: Yes e-Cigarette/Vaping Use: Never Used Second Hand Smoke Exposure: No Use of substances other than those prescribed or required for medical reasons: No Substance Use Type: Marijuana Advance Directives: Yes Advance Directives on File: Yes Advance Directives Date on File: 01/25/21 Patient : No service: No Current occupational status: unemployed Current occupation: right hand dominant Cognitive needs: No Hearing needs: No Vision needs: No Physical Exam 2 Vital Signs: Vital Signs: Last Vital Signs Temp 98.5 F 04/09/23 19:33 Pulse 85 04/09/23 19:33 Resp 16 04/09/23 19:33 BP 134/91 H 04/09/23 19:33 Pulse Ox 100 04/09/23 19:33 O2 Del Method Room Air 04/09/23 19:33 BMI result Body Mass Index 19.6 VITAL SIGNS: Reviewed. GENERAL: Well developed, well nourished, in no acute distress. HEAD: Normocephalic/atraumatic EYES: PERRLA, EOMI EARS: Ext canals without abnormality NOSE: Nares patent bilateral OROPHARYNX: no oral lesions noted, posterior pharynx clear NECK: Supple, no adenopathy LUNGS: Normal breath sounds. No adventitious sounds or accessory muscle use. SpO2<100>; CHEST WALL: Point tenderness noted over right lateral ribs 6/7 without noted crepitus or obvious deformity CARDIOVASCULAR: Regular rate and rhythm without noted murmurs ABDOMEN: Soft, non-tender, non-distended with bowel sounds. PELVIS: Stable, nontender MUSCULOSKELETAL: No tenderness, deformities, or effusions noted on gross inspection. EXTREMITIES: No cyanosis, clubbing or edema. RUE: Mild swelling noted to the right wrist with subtle deformity but otherwise neurovascular is intact SKIN: Inspection of the skin reveals no rashes NEUROLOGIC: Alert and oriented x 4. Strength and sensation to light touch were grossly intact x 4. Medications Administered Discontinued Medications Generic Name Dose Route Start Last Admin Trade Name Freq PRN Reason Stop Dose Admin Phenobarbital Sodium 240 mg 04/09/23 21:30 04/09/23 21:35 Phenobarbital Sodium 130 Mg/Ml Im Once IM 04/09/23 21:31 240 mg ONCE ONE Administration Protocol Medical Decision Making Medical Decision Making [facility] Narrative: 42-year-old female with history and clinical presentation alcohol intoxication in significant alcohol use/abuse disorder, last drink was this morning, patient does suffer from acute alcohol withdrawals but denies having had seizures in the past but has significant hallucinations. I highly suspect fractures right radius and right ribs, patient is not tachypneic nor is she hypoxic at this time. I reviewed all investigations and hematologic indices are negative for leukocytosis/left shift/anemia or thrombocytopenia. Chemistry indices do not demonstrate an BRENDON and there are no electrolyte derangements but elevated transaminases and alkaline phosphatase chronic. Beta hCG is undetectable. ETOH-to 58, patient started on phenobarb protocol as patient has a history of significant alcohol withdrawal syndrome. X-ray of right wrist demonstrates nondisplaced fracture of the distal radius, patient was placed in a volar splint after removal of all jewelry. CT scan of the chest does not demonstrate rib fractures/pneumothorax. Patient is discussed with inpatient hospitalist who accepts admission. Differential Diagnosis Differential Diagnoses: The differential diagnosis associated with the presentation includes Please see the discussion above Admission/Observation Consideration of admission/observation: Escalation of care including admission/observation considered Please see the discussion above Consult Healthcare Provider Management of the patient was discussed with: Hospitalist Please see the discussion above Lab Data MDM Lab Attestation statement: I reviewed the patient's lab results. Please see the discussion above 04/09/23 19:55 04/09/23 19:55 Labs: Lab Results 04/09/23 Range/Units 19:55 WBC 10.1 (4.8-10.8) X10*3/uL RBC 5.04 D (4.20-5.50) X10*6/uL Hgb 13.8 D (12.0-16.0) g/dl Hct 41.1 D (37.0-47.0) % MCV 81.5 (80.0-98.0) fL MCH 27.4 (27.0-33.0) pg MCHC 33.6 (31.0-35.0) g/dl RDW 16.2 H (11.0-16.0) % Plt Count 309 D (160-400) X10*3/uL MPV 9.7 (9.4-12.3) fL Immature Gran % (Auto) 0.2 (0.0-0.4) % Neut % (Auto) 64.4 (45-73) % Lymph % (Auto) 25.7 (20-40) % Vance % (Auto) 6.0 (2-11) % Eos % (Auto) 3.3 (0-4) % Baso % (Auto) 0.4 (0-2) % Lymph # (Auto) 2.6 (1.2-4.9) X10*3/uL Vance # (Auto) 0.6 (0.1-1.2) X10*3/uL Eos # (Auto) 0.3 (0.0-0.4) X10*3/uL Baso # (Auto) 0.0 (0.0-0.2) X10*3/uL Abs Immat Gran (auto) 0.02 (0.00-0.03) X10*3/uL Absolute Neuts (auto) 6.5 (2.0-8.3) x10*3/uL Absolute Nucleated RBC 0.000 (0.0-0.012) X10*3/uL Nucleated RBC % (auto) 0.0 (0.0-0.2) /100WBC Sodium 142 (135-145) mmol/L Potassium 4.2 D (3.3-5.1) mmol/L Chloride 105 (96-108) mmol/L Carbon Dioxide 22 (22-29) mmol/L Anion Gap 19 (12-20) BUN 4 L (9-16) mg/dL Creatinine 0.60 (0.5-1.4) mg/dL Estim Creat Clear Calc 94.9 Estimated GFR > 60 Random Glucose 87 (60-115) mg/dL Calcium 9.1 (8.4-10.2) mg/dL Total Bilirubin 0.2 (0.0-1.0) mg/dL AST 73 H (5-31) U/L ALT 33 H (0-31) U/L Alkaline Phosphatase 130 H (39-117) U/L Total Protein 8.1 H (6.5-8.0) g/dL Albumin 4.3 (3.5-5.0) g/dL Beta HCG, Quant < 2 mIU/mL Ethyl Alcohol 258 mg/dL Radiology Impression Discussion of test interpretation with radiology: I have reviewed the radiologist's reading. Radiologist Impression: Please see the discussion above External Record Review External record reviewed: Outpatient record, Prior outpatient labs and Prior outpatient radiology Social Determinants Patient?s care significantly limited by Social Determinants of Health including: Alcoholism and drug addiction in family Critical Care Time Critical Care Time Critical Care Time: Yes Total Critical Care Time: 60 Attestation: I personally attest to this time spent taking care of the patient. Discharge Plan Discharge Clinical Impression: Alcohol use disorder, severe, dependence, Fall, Distal radial fracture, Alcohol withdrawal, Chest wall contusion Patient Disposition: Admitted As Inpatient
[2023-04-09 20:28] LABS: Alanine Aminotransferase 33 U/L (0-31); Albumin Level 4.3 g/dL (3.5-5.0); Alkaline Phosphatase 130 U/L (39-117); Anion Gap 19 (12-20); Aspartate Amino Transferase 73 U/L (5-31); Bilirubin Total 0.2 mg/dL (0.0-1.0); Blood Urea Nitrogen 4 mg/dL (9-16); Calcium 9.1 mg/dL (8.4-10.2); Carbon Dioxide 22 mmol/L (22-29); Chloride 105 mmol/L (96-108); Creatinine Clr Calc Pharmacy 94.9; Estimated Glomerular Filt Rate > 60; Ethanol 258 mg/dL; Glucose Random 87 mg/dL (60-115); Potassium 4.2 mmol/L (3.3-5.1); Sodium 142 mmol/L (135-145); Total Protein 8.1 g/dL (6.5-8.0)
[2023-04-09 20:49] LABS: HCG Quantitative < 2 mIU/mL
[2023-04-09] MEDS: PHENobarbitaL sodium 130 MG/ML IM ONCE 240 MG IM (21:35)
--- NOTE | 2023-04-09 23:12 | P.HPHOSP_ITS ---
History of Present Illness Date of Service: 04/09/23 Chief Complaint: Fall This is a 42-year-old female with pertinent history of alcohol use disorder with prior admissions for alcohol withdrawal, mood disorder, alcoholic fatty liver who presents to the emergency department for evaluation after a fall. Patient states she was drinking wine when she fell. She tripped on a furniture piece in the room and fell on her right hand. No dizziness or lightheadedness before passing out. No chest pain or palpitations. Did not lose consciousness. No arrhythmic jerking movement of extremities or tongue bite. Patient states her last drink was on the morning of presentation before he fell. No history of alcohol withdrawal seizures. She usually drinks vodka and wine. She has been having tremors, nausea, sweating and anxiety since she stopped drinking. No fever, chills, chest discomfort, palpitations, shortness of breath, abdominal pain, changes in urinary or bowel habits. In the emergency department, patient was initiated on phenobarb protocol. Imaging with distal radius fracture Review of Systems 2 Constitutional: Constitutional: Reports no additional constitutional complaints Cardiovascular: Cardiovascular: Reports no additional cardiovascular complaints Respiratory: Respiratory: Reports no additional respiratory complaints Gastrointestinal: Gastrointestinal: Reports no additional gastrointestinal complaints Genitourinary: Genitourinary: Reports no additional female genitourinary complaints Musculoskeletal: Musculoskeletal: Reports arthralgias and Reports joint swelling Neurologic: Reports tremor(s) Psychiatric: Psychiatric: Reports anxiety PMFSH Medical History Alcohol use disorder, severe, dependence Closed fracture of greater tuberosity of right humerus Pancytopenia Alcohol withdrawal seizure Diverticulitis Pelvic abscess in female Anxiety Alcohol abuse Family History Father Medical history unknown Mother Medical history unknown Paternal Grandfather Cancer Sister Epilepsy Daughter In good health Son In good health Other Substance use disorder Surgical History No pertinent past surgical history Social History Household Members: None Housing: Apartment Do you presently have visiting nurse or other home services: No Unable to assess alcohol history related to: Refusing to respond Alcohol intake: current Alcohol intake frequency: 3 or more drinks per day Alcohol type: wine and hard liquor Comment: REFUSING ALARM Patient Tobacco Use Status: Current everyday Tobacco user Tobacco use type: Cigarette Cigarettes Per Day: 4 Smoked in Last 30 Days: Yes e-Cigarette/Vaping Use: Never Used Patient Interested in Nicotine Replacement: No Patient Given Instructions on How to Stop Smoking: Yes Date Education Initiated: 04/10/23 Second Hand Smoke Exposure: No Use of substances other than those prescribed or required for medical reasons: No Substance Use Type: Marijuana Have you been hit, kicked, punched, or otherwise hurt by someone within the past year? If so, by whom?: No Do you feel safe in your current relationship?: No Is there a partner from a previous relationship who is making you feel unsafe now?: No Are you made to feel afraid or neglected: No Advance Directives: Yes Advance Directives on File: Yes Advance Directives Date on File: 01/25/21 Do you have thoughts of harming others: None Do you have a plan to hurt others: No Plan Recently lost weight without trying: No How much weight loss: Unsure Eating poorly because of decreased appetite: No Nutrition screen score: 2 Nutrition Risks: No Nutritional Risk Patient : No : No Poor oral hygiene: No service: No Current occupational status: unemployed Current occupation: right hand dominant Cognitive needs: No Hearing needs: No Vision needs: No Meds Allergies Allergy/AdvReac Type Severity Reaction Status Date / Time amoxicillin [From Augmentin] Allergy Intermediate Abdominal Verified 03/29/23 07:58 Pain clavulanic acid Allergy Intermediate Abdominal Verified 03/29/23 07:58 [From Augmentin] Pain gabapentin Allergy Intermediate Dizziness Verified 03/29/23 07:58 Sulfa (Sulfonamide Allergy Mild RASH Verified 03/29/23 07:58 Antibiotics) [SULFA (SULFONAMIDE ANTIBIOTICS)] magnesium AdvReac Diarrhea Verified 03/29/23 07:58 Active Medications: Current Medications Pharmacy Consult (Consult Rx Etoh Phenob Im/Po) 1 each MISCELLANE ONCE PRN; Protocol PRN Reason: Consult order Phenobarbital (Phenobarbital 15 Mg Tablet) 45 mg PO BID [facility]; Protocol Stop: 04/11/23 21:01 Phenobarbital (Phenobarbital 15 Mg Tablet) 15 mg PO BID [facility]; Protocol Stop: 04/13/23 21:01 Phenobarbital (Phenobarbital 15 Mg Tablet) 15 mg PO DAILY GHASS[facility]; Protocol Stop: 02/24/24 09:01 Phenobarbital Sodium (Phenobarbital Sodium 130 Mg/Ml Vial Im Q3hx2) 180 mg IM Q3H [facility]; Protocol Stop: 04/10/23 03:31 Home Medications Medication Instructions Recorded Confirmed Last Taken Type clonidine HCl 0.1 mg tablet 0.1 mg PO BID PRN Anxiety 01/15/23 03/10/23 Unknown History diclofenac sodium 1 % topical gel 2 g topical QID PRN pain 01/15/23 03/10/23 Unknown History hyoscyamine sulfate 0.125 mg 0.125 mg PO BID PRN Abdominal Pain 01/15/23 03/10/23 Unknown History disintegrating tablet buspirone 10 mg tablet 10 mg PO BID 03/10/23 03/10/23 Unknown History propranolol 10 mg tablet 10 mg PO TID 03/10/23 03/10/23 Unknown History multivitamin 1 tab PO DAILY 03/29/23 Unknown History Physical Exam 2 Vital Signs and Narrative: Vital Signs: Last Vital Signs Temp 98.5 F 04/09/23 19:33 Pulse 85 04/09/23 19:33 Resp 16 04/09/23 19:33 BP 134/91 H 04/09/23 19:33 Pulse Ox 100 04/09/23 19:33 O2 Del Method Room Air 04/09/23 19:33 BMI result Body Mass Index 19.6 Middle-aged female lying in bed in no distress Neck supple, no JVD Tachycardic with regular rhythm, S1-S2 heard Regular breath sounds bilaterally, no wheezing or crackles appreciated Abdomen soft nontender, no guarding, no rigidity Patient is awake, alert and oriented to self, place, time and person ; upper extremity tremors present Right upper extremity in splint Psych: Anxious No pedal edema Results Labs 04/09/23 19:55 04/09/23 19:55 Labs: Laboratory Results - last 24 hr 04/09/23 19:55 MCV 81.5 MCH 27.4 MCHC 33.6 RDW 16.2 H Plt Count 309 D MPV 9.7 Immature Gran % (Auto) 0.2 Neut % (Auto) 64.4 Lymph % (Auto) 25.7 Dick[place] % (Auto) 6.0 Eos % (Auto) 3.3 Baso % (Auto) 0.4 Lymph # (Auto) 2.6 [place] # (Auto) 0.6 Eos # (Auto) 0.3 Baso # (Auto) 0.0 Abs Immat Gran (auto) 0.02 Absolute Neuts (auto) 6.5 Absolute Nucleated RBC 0.000 Nucleated RBC % (auto) 0.0 Anion Gap 19 Estim Creat Clear Calc 94.9 Estimated GFR > 60 Random Glucose 87 Calcium 9.1 Total Bilirubin 0.2 AST 73 H ALT 33 H Alkaline Phosphatase 130 H Total Protein 8.1 H Albumin 4.3 Beta HCG, Quant < 2 Ethyl Alcohol 258 Imaging Radiologist's Impressions: Impressions Hand/Wrist X-Ray 04/09/23 20:38 IMPRESSION: Normal radiographs of the hand and wrist. Chest CT 04/09/23 21:15 IMPRESSION: No acute bony abnormality. No evidence for pneumothorax or pleural effusion. Fleischner guidelines were followed. Assessment and Plan (1) Alcohol use disorder, severe, dependence: Status: Acute (2) Distal radius fracture: Status: Acute Plan This is a 42-year-old female with pertinent history of alcohol use disorder with prior admissions for alcohol withdrawal, mood disorder, alcoholic fatty liver who presents to the emergency department for concerns of alcohol withdrawal. #. Alcohol use disorder with concerns of withdrawal: Patient has been initiated on phenobarb protocol. Initiated thiamine. Monitor CIWA. Consulted Addiction team #. Distal radius fracture due to mechanical fall: Volar splint placed in the ER. Consulted Orthopedic surgery, appreciate assistance #. Mood disorder: Continue home mood stabilizers #. Elevated transaminases / fatty liver due to alcohol use disorder: Outpatient follow-up Med rec pending DVT prophylaxis: Lovenox Full code Admit as inpatient and will require two night minimum hospital stay for evaluation of radius fracture, close monitoring for withdrawal in a patient with severe alcohol use disorder (as above), which is not possible in a lesser acute setting. Specialist consult pending Quality Stroke Does the patient have a stroke diagnosis?: No VTE Prior VTE?: No VTE Risk Level:: Medical - moderate - high VTE Device Contraindication: Treatment Not Indicated VTE Drug Contraindication: N/A - Med Ordered
[2023-04-09] MEDS: Enoxaparin Sodium 40 MG/0.4 ML SYRINGE SUBCUT (23:39)
[2023-04-09] MEDS: Thiamine HCL 200 MG in 0.9 % Sodium Chloride 100 ML 204 MG IV (23:39)
[2023-04-09] MEDS: Ketorolac Tromethamine 30 MG/ML VIAL 15 MG IVPUSH (23:39)
[2023-04-10 00:01] VITALS: BP 140/86; PULSE 109; RESP 16; O2SAT 98
--- NOTE | 2023-04-10 00:41 | PC.NURSE ---
Patient BIBA from home for evaluation s/p mechanical fall at home with right wrist and right flank/chest wall pain. Patient reports history of ETOH with withdrawal. Patient is alert and oriented x3, VSS. CIWA 7. X-ray of right wrist demonstrates non displaced fracture of the distal radius, patient was placed in a volar splint by . Patient medicated per APR, call anguiano within patient's reach.
--- NOTE | 2023-04-10 00:50 | ECG_ITS ---
Test Reason : CHEST PX Blood Pressure : / mmHG Vent. Rate : 104 BPM Atrial Rate : 104 BPM P-R Int : 124 ms QRS Dur : 080 ms QT Int : 394 ms P-R-T Axes : 021 072 043 degrees QTc Int : 518 ms Sinus tachycardia Otherwise normal ECG When compared with ECG of 19-JAN-2023 22:45, No significant change was found Referred By: Leon Manning Electronically Signed By:AMADOU RAMOS MD
--- NOTE | 2023-04-10 00:51 | PC.NURSE ---
Patient reports sensation of heart pounding in her chest, HR 105, sinus tachy on front desk monitor. EKG completed and sent to Dr. Manning for review.
[2023-04-10] MEDS: 0.9 % Sodium Chloride 1,000 ML 999 ML IV ×2 (00:55→06:39)
[2023-04-10] MEDS: PHENobarbitaL sodium 130 MG/ML VIAL IM Q3Hx2 180 MG IM ×2 (01:21→02:10)
[2023-04-10 02:17] VITALS: BP 127/78; PULSE 86; RESP 16; TEMP 36.6; O2SAT 98
[2023-04-10 02:18] VITALS: BMI 20.7
[2023-04-10 05:38] LABS: MANUAL DIFF FLAG NO
[2023-04-10 05:42] LABS: Basophils Percent Auto 0.4 % (0-2); Eosinophils Absolute Auto 0.6 X10*3/uL (0.0-0.4); Eosinophils Percent Auto 7.3 % (0-4); Hematocrit 33.7 % (37.0-47.0); Hemoglobin 11.4 g/dl (12.0-16.0); Imm Gran Abs Auto 0.01 X10*3/uL (0.00-0.03); Imm Gran Pct Auto 0.1 % (0.0-0.4); Lymphocytes Absolute Auto 2.8 X10*3/uL (1.2-4.9); Lymphocytes Percent Auto 35.3 % (20-40); Mean Corpuscular HGB Conc 33.8 g/dl (31.0-35.0); Mean Corpuscular Hemoglobin 27.5 pg (27.0-33.0); Mean Corpuscular Volume 81.4 fL (80.0-98.0); Mean Platelet Volume 10.1 fL (9.4-12.3); Monocytes Absolute Auto 0.7 X10*3/uL (0.1-1.2); Neutrophils Absolute Auto 3.8 x10*3/uL (2.0-8.3); Neutrophils Percent Auto 47.9 % (45-73); Platelet Count 230 X10*3/uL (160-400); Red Blood Count 4.14 X10*6/uL (4.20-5.50); Red Cell Distribution Width 15.9 % (11.0-16.0)
[2023-04-10 06:07] LABS: Anion Gap 15 (12-20); Blood Urea Nitrogen 7 mg/dL (9-16); Calcium 8.5 mg/dL (8.4-10.2); Carbon Dioxide 23 mmol/L (22-29); Chloride 103 mmol/L (96-108); Creatinine Clr Calc Pharmacy 95.7; Estimated Glomerular Filt Rate > 60; Glucose Random 102 mg/dL (60-115); Potassium 2.9 mmol/L (3.3-5.1); Sodium 138 mmol/L (135-145)
[2023-04-10] MEDS: Potassium Chloride Packet 20 MEQ PACKET 40 MEQ PO (06:20)
[2023-04-10 06:53] LABS: Magnesium 1.4 mg/dL (1.6-2.6)
[2023-04-10 07:00] VITALS: BP 135/70; PULSE 78; RESP 16; TEMP 36.7; O2SAT 100
[2023-04-10] MEDS: Acetaminophen 325 MG TABLET 650 MG PO ×2 (07:23→13:31)
[2023-04-10] MEDS: PHENobarbitaL 15 MG TABLET 45 MG PO ×2 (07:23→20:17)
[2023-04-10] MEDS: Magnesium Oxide 400 MG TABLET 800 MG PO ×2 (07:24→17:10)
[2023-04-10] MEDS: Thiamine HCL 100 MG TABLET PO (07:24)
[2023-04-10] MEDS: Potassium Chloride ER 20 MEQ TAB.ER.PRT 40 MEQ PO (07:24)
--- NOTE | 2023-04-10 08:35 | HO.PM.IMPN ---
Subjective Subjective Date of Service: 04/10/23 Interval History: right shoulder pain Physical Exam Vital Signs: Vital Signs: Last Vital Signs Temp 98.0 F 04/10/23 07:00 Pulse 78 04/10/23 07:00 Resp 16 04/10/23 07:00 BP 135/70 04/10/23 07:00 Pulse Ox 100 04/10/23 07:00 O2 Del Method Room Air 04/10/23 07:00 BMI result Body Mass Index 20.7 General: AO X 3, no acute distress Resp: CTA bilateral, no accessory muscles used CVS: S1,S2,RRR GI: soft, non tender, non distended Neuro: motor grossly intact, alert Psych: appropriate affect, appropriate insight Objective Data Active Medications Acetaminophen (Acetaminophen 325 Mg Tablet) 650 mg PO Q6H PRN PRN Reason: Pain, Mild (Pain Scale 1-3) Last Admin: 04/10/23 07:23 Dose: 650 mg Documented By: SHINE Enoxaparin Sodium (Enoxaparin Sodium 40 Mg/0.4 Ml Syringe) 40 mg SUBCUT Q24H [facility] Last Admin: 04/09/23 23:39 Dose: 40 mg Documented By: LEWIS Potassium Chloride (Potassium Chloride/H20) 10 meq in 100 mls @ 100 mls/hr IV Q1H [facility] Stop: 04/10/23 10:59 Magnesium Oxide (Magnesium Oxide 400 Mg Tablet) 800 mg PO BIDPC [facility] Last Admin: 04/10/23 07:24 Dose: 800 mg Documented By: SHINE Melatonin (Melatonin 3 Mg Tablet) 6 mg PO BEDTIME PRN PRN Reason: Insomnia Ondansetron HCl (Ondansetron Hcl 4 Mg/2 Ml Vial) 4 mg IVPUSH Q8H PRN PRN Reason: Nausea and Vomiting Pharmacy Consult (Consult Rx Etoh Phenob Im/Po) 1 each MISCELLANE ONCE PRN; Protocol PRN Reason: Consult order Phenobarbital (Phenobarbital 15 Mg Tablet) 45 mg PO BID [facility]; Protocol Stop: 04/11/23 21:01 Last Admin: 04/10/23 07:23 Dose: 45 mg Documented By: SHINE Phenobarbital (Phenobarbital 15 Mg Tablet) 15 mg PO BID [facility]; Protocol Stop: 04/13/23 21:01 Phenobarbital (Phenobarbital 15 Mg Tablet) 15 mg PO DAILY [facility]; Protocol Stop: 04/15/23 09:01 Sodium Chloride (0.9 % Sodium Chloride Flush 3 Ml Syringe) 3 ml IVFLUSH QSHIFT [facility] Last Admin: 04/10/23 07:28 Dose: Not Given Documented By: SHINE Non-Admin Reason: IV Running Thiamine HCl (Thiamine Hcl 100 Mg Tablet) 100 mg PO DAILY [facility] Last Admin: 04/10/23 07:24 Dose: 100 mg Documented By: SHINE Labs 04/10/23 05:14 04/10/23 05:14 Labs: Laboratory Results - last 24 hr 04/09/23 04/10/23 19:55 05:14 MCV 81.5 81.4 MCH 27.4 27.5 MCHC 33.6 33.8 RDW 16.2 H 15.9 Plt Count 309 D 230 D MPV 9.7 10.1 Immature Gran % (Auto) 0.2 0.1 Neut % (Auto) 64.4 47.9 Lymph % (Auto) 25.7 35.3 [place] % (Auto) 6.0 9.0 Eos % (Auto) 3.3 7.3 H Baso % (Auto) 0.4 0.4 Lymph # (Auto) 2.6 2.8 [place] # (Auto) 0.6 0.7 Eos # (Auto) 0.3 0.6 H Baso # (Auto) 0.0 0.0 Abs Immat Gran (auto) 0.02 0.01 Absolute Neuts (auto) 6.5 3.8 Absolute Nucleated RBC 0.000 0.000 Nucleated RBC % (auto) 0.0 0.0 Anion Gap 19 15 Estim Creat Clear Calc 94.9 95.7 Estimated GFR > 60 > 60 Random Glucose 87 102 Calcium 9.1 8.5 D Magnesium Cancelled 1.4 L* Total Bilirubin 0.2 AST 73 H ALT 33 H Alkaline Phosphatase 130 H Total Protein 8.1 H Albumin 4.3 Beta HCG, Quant < 2 Ethyl Alcohol 258 Assessment and Plan (1) Alcohol withdrawal: Status: Acute Plan 42F PMH etoh dpeendence, mood disorder, AFLD, presented with fall related to intoxication, complicated by right distal radius fracture and etoh withdrawal Alcohol dependence with withdrawal Phenobarb, CIWA Distal radius fracture due to mechanical fall in the setting of intoxication Splint placed in the ER, ortho eval, check right shoulder x-ray Alcoholic fatty liver Abstinence recommended DVT prophylaxis with Lovenox Full Code reason for continued hospitalization: Withdrawal symptoms ongoing Quality Stroke Does the patient have a stroke diagnosis?: No VTE Prior VTE?: No VTE Risk Level:: Medical - moderate - high VTE Device Contraindication: Treatment Not Indicated VTE Drug Contraindication: N/A - Med Ordered
--- NOTE | 2023-04-10 08:52 | PHA.MEDREC ---
Pharmacy Consult ? Medication Reconciliation Pharmacy has completed the medication reconciliation. Spoke with patient in 347. Patient knew all medications. Patient stated she started acamprosate but stopped because she started drinking again.
[2023-04-10] MEDS: Potassium Chloride/H20 10 MEQ/100 ML PIGGYBACK 100 MEQ IV ×4 (08:53→13:35)
[2023-04-10] MEDS: oxyCODONE HCl Immed Release 5 MG TABLET PO ×3 (10:38→20:17)
[2023-04-10] MEDS: ondansetron HCL 4 MG/2 ML VIAL IVPUSH (13:35)
--- NOTE | 2023-04-10 14:45 | MHC.CM.PN ---
pt lives alone is indepedent will be seen by care team pt may assist with transport home
[2023-04-10 15:17] VITALS: BP 124/78; PULSE 79; RESP 16; TEMP 36.4; O2SAT 97
[2023-04-10] MEDS: Propranolol HCL 10 MG TABLET PO ×2 (15:25→20:17)
[2023-04-10] MEDS: Acamprosate Calcium 333 MG TABLET.DR 666 MG PO ×2 (15:25→20:16)
[2023-04-10] MEDS: 0.9 % Sodium Chloride Flush 3 ML SYRINGE IVFLUSH ×2 (15:27→20:17)
[2023-04-10 18:39] LABS: Appearance Urine Clear; Color Urine Yellow; Glucose Urine UA Negative (Negative); Leukocyte Esterase Urine Trace (Negative); Nitrite Urine Negative (Negative); Specific Gravity - Urine 1.015 (1.005-1.025); UMIC TRIGGER UACC YES; Urine Blood Trace (Negative); Urine Ketones Negative (Negative); Urine Protein Negative (Neg-Trace)
[2023-04-10 18:41] LABS: UPreg QC Valid YES; Urine Pregnancy NEGATIVE (NEGATIVE)
[2023-04-10 18:47] LABS: Amphetamine Screen Urine Not Detected (Not Detect); Barbiturates, Urine POSITIVE (Not Detect); Benzodiazepines Screen Urine Not Detected (Not Detect); Cannabinoid Screen Urine Not Detected (Not Detect); Cocaine Screen Urine Not Detected (Not Detect); Fentanyl, urine Not Detected (Not Detect); Opiate Screen Urine Not Detected (Not Detect); Phencyclidine Screen Urine Not Detected (Not Detect)
[2023-04-10 18:49] LABS: Bacteria Urine 1+ (None Seen); RBC Urine 0-2 /HPF (0-2); Squamous Epithelial Cell Urine 0-2 /HPF (0-2); WBC Urine 0-5 /HPF (0-5)
[2023-04-10 19:38] VITALS: BP 119/81; PULSE 65; RESP 16; TEMP 36.4; O2SAT 97
[2023-04-10] MEDS: Prazosin HCL 1 MG CAPSULE PO (20:16)
[2023-04-10] MEDS: busPIRone HCl 10 MG TABLET PO (20:16)
[2023-04-10] MEDS: hydrOXYzine HCL 25 MG TABLET PO (20:17)
[2023-04-10] MEDS: Enoxaparin Sodium 40 MG/0.4 ML SYRINGE SUBCUT (22:34)
[2023-04-11 02:57] VITALS: BP 95/65; PULSE 65; RESP 14; TEMP 36.4; O2SAT 98
[2023-04-11 05:53] LABS: Hematocrit 33.9 % (37.0-47.0); Hemoglobin 11.3 g/dl (12.0-16.0); Mean Corpuscular HGB Conc 33.3 g/dl (31.0-35.0); Mean Corpuscular Hemoglobin 27.7 pg (27.0-33.0); Mean Corpuscular Volume 83.1 fL (80.0-98.0); Mean Platelet Volume 10.1 fL (9.4-12.3); Platelet Count 163 X10*3/uL (160-400); Red Blood Count 4.08 X10*6/uL (4.20-5.50); Red Cell Distribution Width 15.9 % (11.0-16.0); White Blood Count 4.9 X10*3/uL (4.8-10.8)
[2023-04-11 05:59] LABS: INTERNATIONAL NORM RATIO 0.9 (0.9-1.1); Prothrombin Time 11.4 SEC (11.1-13.3)
[2023-04-11 06:08] LABS: Alanine Aminotransferase 20 U/L (0-31); Albumin Level 3.3 g/dL (3.5-5.0); Alkaline Phosphatase 103 U/L (39-117); Anion Gap 10 (12-20); Aspartate Amino Transferase 43 U/L (5-31); Bilirubin Direct 0.2 mg/dL (0.0-0.5); Bilirubin Total 0.5 mg/dL (0.0-1.0); Blood Urea Nitrogen 3 mg/dL (9-16); Calcium 8.4 mg/dL (8.4-10.2); Carbon Dioxide 25 mmol/L (22-29); Chloride 106 mmol/L (96-108); Creatinine Clr Calc Pharmacy 123.7; Estimated Glomerular Filt Rate > 60; Glucose Fasting 94 mg/dL (60-99); Magnesium 1.7 mg/dL (1.6-2.6); Potassium 3.2 mmol/L (3.3-5.1); Sodium 138 mmol/L (135-145)
[2023-04-11 07:33] VITALS: BP 112/79; PULSE 82; RESP 16; TEMP 37.1; O2SAT 98
[2023-04-11] MEDS: busPIRone HCl 10 MG TABLET PO ×2 (08:07→20:01)
[2023-04-11] MEDS: Acamprosate Calcium 333 MG TABLET.DR 666 MG PO ×3 (08:07→20:01)
[2023-04-11] MEDS: oxyCODONE HCl Immed Release 5 MG TABLET PO ×2 (08:07→10:54)
[2023-04-11] MEDS: Propranolol HCL 10 MG TABLET PO ×3 (08:07→20:01)
[2023-04-11] MEDS: PHENobarbitaL 15 MG TABLET 45 MG PO ×2 (08:07→20:01)
[2023-04-11] MEDS: Thiamine HCL 100 MG TABLET PO (08:07)
[2023-04-11] MEDS: Magnesium Oxide 400 MG TABLET 800 MG PO ×2 (08:07→17:14)
[2023-04-11] MEDS: 0.9 % Sodium Chloride Flush 3 ML SYRINGE IVFLUSH ×2 (08:08→15:42)
--- NOTE | 2023-04-11 08:17 | HO.PM.IMPN ---
Subjective Subjective Date of Service: 04/11/23 Interval History: still feeling withdrawal Physical Exam Vital Signs: Vital Signs: Last Vital Signs Temp 98.8 F 04/11/23 07:33 Pulse 82 04/11/23 07:33 Resp 16 04/11/23 07:33 BP 112/79 04/11/23 07:33 Pulse Ox 98 04/11/23 07:33 O2 Del Method Room Air 04/11/23 07:33 BMI result Body Mass Index 20.7 General: AO X 3, no acute distress Resp: CTA bilateral, no accessory muscles used CVS: S1,S2,RRR GI: soft, non tender, non distended Neuro: motor grossly intact, alert Psych: appropriate affect, appropriate insight Objective Data Active Medications Acamprosate (Acamprosate Calcium 333 Mg Tablet.) 666 mg PO TID [facility] Last Admin: 04/11/23 08:07 Dose: 666 mg Documented By: JEWEL Acetaminophen (Acetaminophen 325 Mg Tablet) 650 mg PO Q6H PRN PRN Reason: Pain, Mild (Pain Scale 1-3) Last Admin: 04/10/23 13:31 Dose: 650 mg Documented By: SHINE Buspirone HCl (Buspirone Hcl 10 Mg Tablet) 10 mg PO BID [facility] Last Admin: 04/11/23 08:07 Dose: 10 mg Documented By: JEWEL Clonidine HCl (Clonidine Hcl 0.1 Mg Tablet) 0.1 mg PO TID PRN; Protocol PRN Reason: Anxiety Enoxaparin Sodium (Enoxaparin Sodium 40 Mg/0.4 Ml Syringe) 40 mg SUBCUT Q24H [facility] Last Admin: 04/10/23 22:34 Dose: 40 mg Documented By: MARISELA Hydroxyzine HCl (Hydroxyzine Hcl 25 Mg Tablet) 25 mg PO BEDTIME [facility] Last Admin: 04/10/23 20:17 Dose: 25 mg Documented By: MARISELA Magnesium Oxide (Magnesium Oxide 400 Mg Tablet) [address] [facility] Last Admin: 04/11/23 08:07 Dose: 800 mg Documented By: JEWEL Melatonin (Melatonin 3 Mg Tablet) 6 mg PO BEDTIME PRN PRN Reason: Insomnia Ondansetron HCl (Ondansetron Hcl 4 Mg/2 Ml Vial) 4 mg IVPUSH Q8H PRN PRN Reason: Nausea and Vomiting Last Admin: 04/10/23 13:35 Dose: 4 mg Documented By: SHINE Oxycodone HCl (Oxycodone Hcl Immed Release 5 Mg Tablet) 5 mg PO Q4H PRN PRN Reason: modertae pain Last Admin: 04/11/23 08:07 Dose: 5 mg Documented By: JEWEL Pharmacy Consult (Consult Rx Etoh Phenob Im/Po) 1 each MISCELLANE ONCE PRN; Protocol PRN Reason: Consult order Phenobarbital (Phenobarbital 15 Mg Tablet) 45 mg PO BID [facility]; Protocol Stop: 04/11/23 21:01 Last Admin: 04/11/23 08:07 Dose: 45 mg Documented By: JEWEL Phenobarbital (Phenobarbital 15 Mg Tablet) 15 mg PO BID [facility]; Protocol Stop: 04/13/23 21:01 Phenobarbital (Phenobarbital 15 Mg Tablet) 15 mg PO DAILY [facility]; Protocol Stop: 04/15/23 09:01 Prazosin HCl (Prazosin Hcl 1 Mg Capsule) 1 mg PO BEDTIME [facility]; Protocol Last Admin: 04/10/23 20:16 Dose: 1 mg Documented By: MARISELA Propranolol HCl (Propranolol Hcl 10 Mg Tablet) 10 mg PO TID [facility]; Protocol Last Admin: 04/11/23 08:07 Dose: 10 mg Documented By: JEWEL Sodium Chloride (0.9 % Sodium Chloride Flush 3 Ml Syringe) [facility] Last Admin: 04/11/23 08:08 Dose: 3 ml Documented By: JEWEL Thiamine HCl (Thiamine Hcl 100 Mg Tablet) 100 mg PO DAILY [facility] Last Admin: 04/11/23 08:07 Dose: 100 mg Documented By: JEWEL Labs 04/11/23 05:16 04/11/23 05:16 Labs: Laboratory Results - last 24 hr 04/10/23 04/11/23 18:22 05:16 MCV 83.1 MCH 27.7 MCHC 33.3 RDW 15.9 Plt Count 163 D MPV 10.1 Absolute Nucleated RBC 0.000 Nucleated RBC % (auto) 0.0 PT 11.4 INR 0.9 Anion Gap 10 L Estim Creat Clear Calc 123.7 Estimated GFR > 60 Fasting Glucose 94 Calcium 8.4 Magnesium 1.7 Total Bilirubin 0.5 Direct Bilirubin 0.2 AST 43 H ALT 20 Alkaline Phosphatase 103 Total Protein 6.0 L Albumin 3.3 L Urine Color Yellow Urine Appearance Clear Urine pH 7.0 Ur Specific [place] 1.015 Urine Protein Negative Urine Glucose (UA) Negative Urine Ketones Negative Urine Blood Trace H Urine Nitrite Negative Ur Leukocyte Esterase Trace H Urine RBC 0-2 Urine WBC 0-5 Ur Squamous Epith Cells 0-2 Urine Bacteria 1+ Hyaline Casts 3-5 Urine Test NEGATIVE Urine Opiates Screen Not Detected Urine Fentanyl Screen Not Detected Ur Barbiturates Screen POSITIVE H Ur Phencyclidine Scrn Not Detected Ur Amphetamines Screen Not Detected U Benzodiazepines Scrn Not Detected Urine Cocaine Screen Not Detected U Marijuana (THC) Screen Not Detected Assessment and Plan (1) Alcohol withdrawal: Status: Acute Plan 42F PMH etoh dpeendence, mood disorder, AFLD, presented with fall related to intoxication, complicated by right distal radius fracture and etoh withdrawal Alcohol dependence with withdrawal Phenobarb, CIWA Distal radius fracture due to mechanical fall in the setting of intoxication Splint placed in the ER, ortho eval, negative right shoulder x-ray Alcoholic fatty liver Abstinence recommended DVT prophylaxis with Lovenox Full Code reason for continued hospitalization: Withdrawal symptoms ongoing Quality Stroke Does the patient have a stroke diagnosis?: No VTE Prior VTE?: No VTE Risk Level:: Medical - moderate - high VTE Device Contraindication: Treatment Not Indicated VTE Drug Contraindication: N/A - Med Ordered
--- NOTE | 2023-04-11 09:41 | P.CDIM_ITS ---
PROVIDER RESPONSE TEXT: To clarify, the appropriate diagnosis supported by the clinical indicators: Hypokalemia: acute QUERY TEXT: PHYSICIAN'S DOCUMENTATION REQUEST Date of Query: 04/11/2023 09:29 AM EST Patient Name: Susan Vanessa Admit Date: 04/10/2023 Dear Timur Fuentes, A review of the medical record indicates additional documentation may be needed. Please review below and update the documentation accordingly. Clinical Indicators: LAB FINDINGS: potassium 2.9 L 3.2 Klor-Con Based on the above, is there a diagnosis that correlates with these lab findings: Hypokalemia resolved, possible, suspected, probable etc. Labs indicate a diagnosis of (please specify) Other (explain) Clinically unable to determine (explain) Thank you, Jessica Phillips, CCS, CDIS Use of terms such as suspected, likely, concern for, or probable (associated with a specific diagnosi s that is being evaluated, monitored, or treated as if it exists) are acceptable and can be coded in the inpatient se tting, when documented at the time of discharge. Please use your independent medical judgment in providing your response. THIS QUERY IS PART OF THE PERMANENT MEDICAL RECORD
--- NOTE | 2023-04-11 09:53 | P.CDIM_ITS ---
PROVIDER RESPONSE TEXT: To clarify, the appropriate diagnosis supported by the clinical indicators: Hypomagnesemia: acute QUERY TEXT: PHYSICIAN'S DOCUMENTATION REQUEST Date of Query: 04/11/2023 09:33 AM EST Patient Name: Susan Vanessa Admit Date: 04/10/2023 Dear Timur Fuentes, A review of the medical record indicates additional documentation may be needed. Please review below and update the documentation accordingly. Clinical Indicators: LAB FINDINGS: magnesium 1.4 L Based on the above, is there a diagnosis that correlates with these lab findings: Hypomagnesemia possible, suspected, resolved etc. Labs indicate a diagnosis of (please specify) Other (explain) Clinically unable to determine (explain) Thank you, Jessica Phillips, CCS, CDIS Use of terms such as suspected, likely, concern for, or probable (associated with a specific diagnosi s that is being evaluated, monitored, or treated as if it exists) are acceptable and can be coded in the inpatient se tting, when documented at the time of discharge. Please use your independent medical judgment in providing your response. THIS QUERY IS PART OF THE PERMANENT MEDICAL RECORD
[2023-04-11] MEDS: Potassium Chloride Packet 20 MEQ PACKET 40 MEQ PO (10:54)
--- NOTE | 2023-04-11 12:54 | MHC.RECOVRN ---
Met with pt in 347 after consult placed to Addiction Medicine for alcohol use. Pt had presented to the ED s/p fall at home as well as alcohol use. Pt subsequently admitted for AUD/concern for withdrawal as well as distal radius fracture. Pt sitting in bed, awake, alert, easily engages in conversation, familiar with t/w from previous consults. Pt reports alcohol recurrence 04/02/23 and has been drinking 6-7 vodka nips per day. Pt reports this is a reduction from usual amount. Pt reports she had been taking Campral until recurrence. Pt reports the evening prior to presentation she had been moving things around her house with a friend while drinking wine when she fell. Pt has court on 04/17 and is most likely being evicted from her home. Pt reports she has been busy with moving/junk removal, cooking, and spending time with family since last admission. Pt reports [employer] major case detective has helped initiate disability benefits, pt reports she has a phone call on 04/27 to continue with the process. Pt reports the place she was going to move to (friend Jesus Manuel's house) is no longer an option as there is no longer space. Pt has spoken to son about temporarily staying with him. Pt reports stress regarding housing situation led to recurrence. Pt had been following up outpatient with Kerrie Mulligan APRN, and would like to return to the [facility]. Pt agreeable to present as walk in for follow up immediately after dc from [facility]. Pt denies questions or concerns for t/w. Discussed with Kerrie Mulligan APRN.
--- NOTE | 2023-04-11 14:24 | PM.CNOR ---
History of Present Illness HPI Consult date: 04/11/23 Chief complaint: Fall Narrative: Ms. Vanessa is a 42-year-old right hand dominant female who arrives via EMS on 04/09/23 after she sustained a mechanical fall and caught herself on her right upper extremity but states that she struck her right chest wall in has complaints about right wrist pain as well as right chest wall pain, she denies striking her head or loss of consciousness. Review of Systems Review of Systems: Yes all other systems are reviewed and are negative [facility] Past Medical History Medical History Alcohol use disorder, severe, dependence Closed fracture of greater tuberosity of right humerus Pancytopenia Alcohol withdrawal seizure Diverticulitis Pelvic abscess in female Anxiety Alcohol abuse Family History Family History Father Medical history unknown Mother Medical history unknown Paternal Grandfather Cancer Sister Epilepsy Daughter In good health Son In good health Other Substance use disorder Surgical History Surgical History No pertinent past surgical history Social History Social History Household Members: None Housing: Apartment Do you presently have visiting nurse or other home services: No Unable to assess alcohol history related to: Refusing to respond Alcohol intake: current Alcohol intake frequency: 3 or more drinks per day Alcohol type: wine and hard liquor Comment: REFUSING ALARM Patient Tobacco Use Status: Current everyday Tobacco user Tobacco use type: Cigarette Cigarettes Per Day: 4 Smoked in Last 30 Days: Yes e-Cigarette/Vaping Use: Never Used Patient Interested in Nicotine Replacement: No Patient Given Instructions on How to Stop Smoking: Yes Date Education Initiated: 04/10/23 Second Hand Smoke Exposure: No Use of substances other than those prescribed or required for medical reasons: No Substance Use Type: Marijuana Currently Displaying Signs/Symptoms of Drug Intoxication Withdrawal: No Have you been hit, kicked, punched, or otherwise hurt by someone within the past year? If so, by whom?: No Do you feel safe in your current relationship?: No Is there a partner from a previous relationship who is making you feel unsafe now?: No Are you made to feel afraid or neglected: No Advance Directives: Yes Advance Directives on File: Yes Advance Directives Date on File: 01/25/21 Do you have thoughts of harming others: None Do you have a plan to hurt others: No Plan Recently lost weight without trying: No How much weight loss: Unsure Eating poorly because of decreased appetite: No Nutrition screen score: 2 Nutrition Risks: No Nutritional Risk Patient : No : No Poor oral hygiene: No service: No Current occupational status: unemployed Current occupation: right hand dominant Cognitive needs: No Hearing needs: No Vision needs: No Meds Allergies Allergy/AdvReac Type Severity Reaction Status Date / Time amoxicillin [From Augmentin] Allergy Intermediate Abdominal Verified 03/29/23 07:58 Pain clavulanic acid Allergy Intermediate Abdominal Verified 03/29/23 07:58 [From Augmentin] Pain gabapentin Allergy Intermediate Dizziness Verified 03/29/23 07:58 Sulfa (Sulfonamide Allergy Mild RASH Verified 03/29/23 07:58 Antibiotics) [SULFA (SULFONAMIDE ANTIBIOTICS)] magnesium AdvReac Diarrhea Verified 03/29/23 07:58 Active Medications: Current Medications Acamprosate (Acamprosate Calcium 333 Mg Tablet.) 666 mg PO TID [facility] Last Admin: 04/11/23 08:07 Dose: 666 mg Acetaminophen (Acetaminophen 325 Mg Tablet) 650 mg PO Q6H PRN PRN Reason: Pain, Mild (Pain Scale 1-3) Last Admin: 04/10/23 13:31 Dose: 650 mg Buspirone HCl (Buspirone Hcl 10 Mg Tablet) 10 mg PO BID [facility] Last Admin: 04/11/23 08:07 Dose: 10 mg Clonidine HCl (Clonidine Hcl 0.1 Mg Tablet) 0.1 mg PO TID PRN; Protocol PRN Reason: Anxiety Enoxaparin Sodium (Enoxaparin Sodium 40 Mg/0.4 Ml Syringe) 40 mg SUBCUT Q24H [facility] Last Admin: 04/10/23 22:34 Dose: 40 mg Hydroxyzine HCl (Hydroxyzine Hcl 25 Mg Tablet) 25 mg PO BEDTIME [facility] Last Admin: 04/10/23 20:17 Dose: 25 mg Magnesium Oxide (Magnesium Oxide 400 Mg Tablet) 800 mg PO BIDPC [facility] Last Admin: 04/11/23 08:07 Dose: 800 mg Melatonin (Melatonin 3 Mg Tablet) 6 mg PO BEDTIME PRN PRN Reason: Insomnia Ondansetron HCl (Ondansetron Hcl 4 Mg/2 Ml Vial) 4 mg IVPUSH Q8H PRN PRN Reason: Nausea and Vomiting Last Admin: 04/10/23 13:35 Dose: 4 mg Oxycodone HCl (Oxycodone Hcl Immed Release 5 Mg Tablet) 10 mg PO Q4H PRN PRN Reason: modertae pain Pharmacy Consult (Consult Rx Etoh Phenob Im/Po) 1 each MISCELLANE ONCE PRN; Protocol PRN Reason: Consult order Phenobarbital (Phenobarbital 15 Mg Tablet) 45 mg PO BID [facility]; Protocol Stop: 04/11/23 21:01 Last Admin: 04/11/23 08:07 Dose: 45 mg Phenobarbital (Phenobarbital 15 Mg Tablet) 15 mg PO BID [facility]; Protocol Stop: 04/13/23 21:01 Phenobarbital (Phenobarbital 15 Mg Tablet) 15 mg PO DAILY [facility]; Protocol Stop: 04/15/23 09:01 Prazosin HCl (Prazosin Hcl 1 Mg Capsule) 1 mg PO BEDTIME [facility]; Protocol Last Admin: 04/10/23 20:16 Dose: 1 mg Propranolol HCl (Propranolol Hcl 10 Mg Tablet) 10 mg PO TID [facility]; Protocol Last Admin: 04/11/23 08:07 Dose: 10 mg Psyllium Hydrophilic Mucilloid (Psyllium Seed 3.7 Gm Packet) 3.7 gm PO BEDTIME [facility] Sodium Chloride (0.9 % Sodium Chloride Flush 3 Ml Syringe) 3 ml IVFLUSH QSHIFT [facility] Last Admin: 04/11/23 08:08 Dose: 3 ml Thiamine HCl (Thiamine Hcl 100 Mg Tablet) 100 mg PO DAILY [facility] Last Admin: 04/11/23 08:07 Dose: 100 mg Home Medications Medication Instructions Recorded Confirmed Last Taken Type clonidine HCl 0.1 mg tablet 0.1 mg PO TID PRN Anxiety 01/15/23 04/10/23 Unknown History buspirone 10 mg tablet 10 mg PO BID 03/10/23 04/10/23 04/08/23 History multivitamin 1 tab PO DAILY 03/29/23 04/10/23 04/08/23 History hydroxyzine HCl 25 mg tablet 25 mg PO BEDTIME 04/10/23 04/10/23 04/08/23 History meclizine 12.5 mg tablet 12.5 mg PO TID PRN Dizziness 04/10/23 04/10/23 Unknown History naproxen 500 mg tablet 500 mg PO BID PRN Pain (Scale 04/10/23 04/10/23 Unknown History Score 1-3) propranolol 10 mg tablet 10 mg PO TID 04/10/23 04/10/23 04/08/23 History thiamine HCl (vitamin B1) 100 mg 100 mg PO DAILY 04/10/23 04/10/23 04/08/23 History tablet Physical Exam Vital Signs: Vital Signs: Last Vital Signs Temp 98.8 F 04/11/23 07:33 Pulse 82 04/11/23 07:33 Resp 16 04/11/23 07:33 BP 112/79 04/11/23 07:33 Pulse Ox 98 04/11/23 07:33 O2 Del Method Room Air 04/11/23 07:33 BMI result Body Mass Index 20.7 Const: General: cooperative, healthy appearing and no acute distress Resp: Effort & Inspection: normal respiratory effort and able to speak in complete sentences Cardio: Rate: regular rate Peripheral pulses: Peripheral pulses 2+ throughout GI: Palpation (GI): Soft to palpation Skin: Lesions: no lesions Rashes: no rashes Extrem: Other: Right wrist in a volar wrist splint. Splint is c/d/i. Able to move all digits. Sensation intact. Capillary refill is brisk. Results Labs 04/11/23 05:16 04/11/23 05:16 Labs: Abnormal lab results 04/10/23 04/11/23 Range/Units 18:22 05:16 RBC 4.08 L (4.20-5.50) X10*6/uL Hgb 11.3 L (12.0-16.0) g/dl Hct 33.9 L (37.0-47.0) % Potassium 3.2 L (3.3-5.1) mmol/L Anion Gap 10 L (12-20) BUN 3 L (9-16) mg/dL Creatinine 0.48 L (0.5-1.4) mg/dL AST 43 H (5-31) U/L Total Protein 6.0 L (6.5-8.0) g/dL Albumin 3.3 L (3.5-5.0) g/dL Urine Blood Trace H (Negative) Ur Leukocyte Esterase Trace H (Negative) Ur Barbiturates Screen POSITIVE H (Not Detect) H & H 04/09/23 04/10/23 04/11/23 Range/Units 19:55 05:14 05:16 Hgb 13.8 D 11.4 L 11.3 L (12.0-16.0) g/dl Hct 41.1 D 33.7 L 33.9 L (37.0-47.0) % Coagulation 04/11/23 Range/Units 05:16 INR 0.9 (0.9-1.1) All other labs normal. Assessment and Plan (1) Alcohol withdrawal: Status: Acute (2) Distal radial fracture: Status: Acute X-rays reveal minimally displaced distal radius fracture Case reviewed with Dr. Sandoval Splint to remain clean, dry and intact No lifting pushing or pulling right upper extremity F/u out patient No surgical intervention needed at this time - will continue to monitor Right shoulder greater tuberosity is healed no acute fracture dislocation Last appt 02/23/23 referral to physical therapy for gentle ROM (3) Alcohol use disorder, severe, dependence: Status: Acute (4) Fall: Qualifiers: Encounter type: initial encounter Qualified Code(s): W19.XXXA - Unspecified fall, initial encounter Status: Acute (5) Fracture of greater tuberosity of right humerus: Qualifiers: Encounter type: initial encounter Fracture type: closed Fracture alignment: nondisplaced Qualified Code(s): S42.254A - Nondisplaced fracture of greater tuberosity of right humerus, initial encounter for closed fracture Status: Acute Procedures Date of Service Date of Service: 04/11/23
[2023-04-11] MEDS: oxyCODONE HCl Immed Release 5 MG TABLET 10 MG PO ×2 (14:30→20:09)
[2023-04-11 14:31] VITALS: BP 109/72; PULSE 79; RESP 18
[2023-04-11 15:46] VITALS: BP 108/65; PULSE 78; RESP 19; TEMP 36.7; O2SAT 97
[2023-04-11 19:12] VITALS: BP 94/64; PULSE 86; RESP 20; TEMP 36.6; O2SAT 97
[2023-04-11 19:47] VITALS: BP 104/71; PULSE 78
[2023-04-11] MEDS: hydrOXYzine HCL 25 MG TABLET PO (20:00)
[2023-04-11] MEDS: Prazosin HCL 1 MG CAPSULE PO (20:01)
[2023-04-11] MEDS: Psyllium seed 3.7 GM PACKET PO (20:03)
[2023-04-11] MEDS: Enoxaparin Sodium 40 MG/0.4 ML SYRINGE SUBCUT (21:40)
[2023-04-11] MEDS: Acetaminophen 325 MG TABLET 650 MG PO (21:41)
[2023-04-11] MEDS: ondansetron HCL 4 MG/2 ML VIAL IVPUSH (21:45)
[2023-04-12] MEDS: 0.9 % Sodium Chloride Flush 3 ML SYRINGE IVFLUSH ×2 (02:10→07:58)
[2023-04-12] MEDS: oxyCODONE HCl Immed Release 5 MG TABLET 10 MG PO ×2 (02:36→07:59)
[2023-04-12 03:18] VITALS: BP 94/67; PULSE 90; RESP 18; TEMP 36.7; O2SAT 97
[2023-04-12 07:40] VITALS: BP 101/61; PULSE 87; RESP 16; TEMP 36.7; O2SAT 97
[2023-04-12] MEDS: busPIRone HCl 10 MG TABLET PO (07:58)
[2023-04-12] MEDS: Acamprosate Calcium 333 MG TABLET.DR 666 MG PO (07:58)
[2023-04-12] MEDS: Thiamine HCL 100 MG TABLET PO (07:58)
[2023-04-12] MEDS: Propranolol HCL 10 MG TABLET PO (07:58)
[2023-04-12] MEDS: Magnesium Oxide 400 MG TABLET 800 MG PO (07:58)
[2023-04-12] MEDS: Magnesium Hydrox/Alum Hydrox 30 ML ORAL.SUSP PO (07:59)
[2023-04-12] MEDS: PHENobarbitaL 15 MG TABLET PO (07:59)
--- NOTE | 2023-04-12 10:22 | PM.DS ---
DS: Providers Provider Date of Service: 04/12/23 Date of admission: 04/09/23 23:10 Primary care physician: Ollie Pulliam PA-C Consults: 04/09/23 23:09 Addiction Medicine Routine Consulting Provider: Addiction Covering Reason for consultation: alcohol use disorder Consult to Orthopedics Routine Consulting Provider: [facility] Reason for consultation: distal radius fracture DS: Diagnosis Discharge Diagnosis (1) Alcohol withdrawal: Status: Acute (2) Distal radial fracture: Status: Acute (3) Alcohol use disorder, severe, dependence: Status: Acute (4) Fall: Status: Acute (5) Fracture of greater tuberosity of right humerus: Status: Acute DS: Summary Hospital Course Hospital Course: Admission note HPI This is a 42-year-old female with pertinent history of alcohol use disorder with prior admissions for alcohol withdrawal, mood disorder, alcoholic fatty liver who presents to the emergency department for evaluation after a fall. Patient states she was drinking wine when she fell. She tripped on a furniture piece in the room and fell on her right hand. No dizziness or lightheadedness before passing out. No chest pain or palpitations. Did not lose consciousness. No arrhythmic jerking movement of extremities or tongue bite. Patient states her last drink was on the morning of presentation before he fell. No history of alcohol withdrawal seizures. She usually drinks vodka and wine. She has been having tremors, nausea, sweating and anxiety since she stopped drinking. No fever, chills, chest discomfort, palpitations, shortness of breath, abdominal pain, changes in urinary or bowel habits. In the emergency department, patient was initiated on phenobarb protocol. Imaging with distal radius fracture Hospital course # Alcohol dependence with withdrawal Treated with Phenobarb protocoal and monitored on [facility] with good response. was seen by care team on multiple occasions and provided with outpatient resources. will keep her on supplement of Thiamine and magnesium. # Distal radius fracture due to mechanical fall in the setting of intoxication Splint placed in the ER, ortho eval, negative right shoulder x-ray. To be followed by orthopedic team as outpatient. # Alcoholic fatty liver Abstinence recommended. We advise you complete abstinence from alcohol Pain medication as needed Follow with Orthopedics as outpatient Time Attestation Discharge coordination time: Greater than 30 minutes Quality: Safe Use of Opioids Does Pt have an Active Cancer Diagnosis on the Problem List?: No Quality: Stroke Does the patient have a stroke diagnosis?: No Physical Exam Vital Signs: Vital Signs: Last Vital Signs Temp 98.1 F 04/12/23 07:40 Pulse 87 04/12/23 07:40 Resp 16 04/12/23 07:40 BP 101/61 04/12/23 07:40 Pulse Ox 97 04/12/23 07:40 O2 Del Method Room Air 04/12/23 07:40 BMI result Body Mass Index 20.7 DS: Data Data Completed and Pending Completed studies during hospitalization [Text1]: Procedures Detoxification Services for Substance Abuse Treatment (03/10/23) Transfusion of Nonautologous Platelets into Peripheral Vein, Percutaneous Approach (12/07/22) Discharge Plan Discharge Anticipated Discharge Date/Time: 04/12/23 09:47 Patient Disposition: Home, Self-Care Discharge Diagnosis: Alcohol withdrawal Fall; radial fracture Referrals: Ollie Pulliam PA-C [Primary Care Provider] - 1 Week Ambika Dejesus PA-C [Physician Director Of Collections] - 04/20/23 9:00 am (04/20/23 09:00) Discharge Medications: New magnesium oxide 400 mg (241.3 mg magnesium) Tablet 400 mg PO DAILY Qty: 90 0RF oxycodone 5 mg Tablet 5 mg PO Q4H PRN (Reason: modertae pain) Qty: 20 0RF Rx Instructions: Partial Fill upon patient request. thiamine mononitrate (vit B1) 100 mg Tablet 100 mg PO DAILY Qty: 90 0RF Continued clonidine HCl 0.1 mg tablet 0.1 mg PO TID PRN (Reason: Anxiety) lorazepam [Ativan] 1 mg tablet 1 mg PO Q4-6H PRN (Reason: alcohol withdrawal) Qty: 20 0RF buspirone 10 mg tablet 10 mg PO BID thiamine HCl (vitamin B1) 100 mg Tablet 100 mg PO DAILY meclizine 12.5 mg tablet 12.5 mg PO TID PRN (Reason: Dizziness) propranolol 10 mg tablet 10 mg PO TID naproxen 500 mg tablet 500 mg PO BID PRN (Reason: Pain (Scale Score 1-3)) hydroxyzine HCl 25 mg tablet 25 mg PO BEDTIME multivitamin Tablet 1 tab PO DAILY prazosin 1 mg capsule 1 mg PO BEDTIME Qty: 90 0RF acamprosate 333 mg tablet,delayed release (DR/EC) 666 mg PO TID Qty: 60 0RF Discharge Orders: Discharge Order (Routine); Ordered 04/12/23 Ordered By: Scar Ellison Diet: Advance to usual diet Activity on Discharge: As tolerated Stand Alone Forms: Patient Portal Discharge page Activity Restrictions/Additional Instructions: right wrist keep splint clean, dry, and intact No lifting pushing pulling RUE Elevation Gentle finger ROM F/U out patient Care Plan Goals: Read below Health Concerns: Read below Plan of Treatment: Read below Assessment: We advise you complete abstinence from alcohol Pain medication as needed Follow with Orthopedics as outpatient
--- NOTE | 2023-04-12 10:41 | MHC.CM.PN ---
pt dcd home no servies
--- NOTE | 2023-04-12 10:54 | MHC.RECOVRN ---
Pt discharging today, plan to present as walk in to [facility] at 1 pm. Pt and RN aware.
== END 2023-04-12 11:36 | disposition home or self-care (01) | DRG 342 ==
LOC: HO.ED 20:40 → HO.EDOVER 23:25 → HO.S3 04-10 00:20
PROVIDERS: Internal Medicine; Admitting Provider Student in an Organized Health Care Education/Training Program; Emergency Provider Student in an Organized Health Care Education/Training Program; PCP Physician Assistant; Visit Provider Student in an Organized Health Care Education/Training Program
DX: S52.501A Unspecified fracture of the lower end of right radius, initial encounter for closed fracture (principal); K70.0 Alcoholic fatty liver; F10.239 Alcohol dependence with withdrawal, unspecified; F10.229 Alcohol dependence with intoxication, unspecified; E83.42 Hypomagnesemia; F39 Unspecified mood [affective] disorder; E87.6 Hypokalemia; F17.210 Nicotine dependence, cigarettes, uncomplicated; W19.XXXA Unspecified fall, initial encounter; Y90.8 Blood alcohol level of 240 mg/100 ml or more; Z71.6 Tobacco abuse counseling; Z79.899 Other long term (current) drug therapy
CPT/HCPCS: 36415; 71250; 73030; 73110; 73130; 80048; 80053; 80076; 80307; 81001; 81025; 83735; 84702; 85025; 85027; 85610; 93005; 99285; J1650; J1885; J2405; J2560; J3411; J3480

== ENCOUNTER 2023-04-09 23:10 | Outpatient (BNV) | payer OTHER, SELFPAY | END 2023-04-10 00:50 | PROVIDERS: Admitting Provider Student in an Organized Health Care Education/Training Program; Emergency Provider Student in an Organized Health Care Education/Training Program; PCP Physician Assistant; Visit Provider Internal Medicine Cardiovascular Disease | DX: R00.0 Tachycardia, unspecified (principal); R07.9 Chest pain, unspecified | CPT/HCPCS: 93010 ==

== ENCOUNTER → 2023-04-09 23:10 | Outpatient (BNV) | payer OTHER, SELFPAY | PROVIDERS: Admitting Provider Student in an Organized Health Care Education/Training Program; Emergency Provider Student in an Organized Health Care Education/Training Program; PCP Physician Assistant; Visit Provider Student in an Organized Health Care Education/Training Program | DX: F10.939 Alcohol use, unspecified with withdrawal, unspecified (principal); S52.509A Unspecified fracture of the lower end of unspecified radius, initial encounter for closed fracture; W19.XXXA Unspecified fall, initial encounter; S42.254A Nondisplaced fracture of greater tuberosity of right humerus, initial encounter for closed fracture | CPT/HCPCS: 99222; 99232; 99238 ==

== ENCOUNTER → 2023-04-09 23:10 | Outpatient (BNV) | payer OTHER, SELFPAY | PROVIDERS: Admitting Provider Student in an Organized Health Care Education/Training Program; Emergency Provider Student in an Organized Health Care Education/Training Program; PCP Physician Assistant; Visit Provider Physician Assistant | DX: S52.591A Other fractures of lower end of right radius, initial encounter for closed fracture (principal); S42.254A Nondisplaced fracture of greater tuberosity of right humerus, initial encounter for closed fracture; W19.XXXA Unspecified fall, initial encounter; F10.939 Alcohol use, unspecified with withdrawal, unspecified | CPT/HCPCS: 99221 ==

== ENCOUNTER 2023-04-20 16:45 | Outpatient (REF) | payer OTHER, SELFPAY | END 2023-04-20 16:46 | disposition home or self-care (01) | LOC: HO.HOSX 16:45 | PROVIDERS: Visit Provider Physician Assistant | DX: Z13.89 Encounter for screening for other disorder (principal) ==

== ENCOUNTER 2023-04-21 12:46 | Emergency (ER) | payer OTHER, SELFPAY ==
--- NOTE | ~2023-04-21 | CT_ITS ---
EXAMINATION: CT HEAD WITHOUT CONTRAST CLINICAL INFORMATION: Headache. COMPARISON: CT scan of the head 01/19/2023. TECHNIQUE: Contiguous axial imaging was performed from the skull base to vertex without intravenous administration of contrast. Coronal and sagittal reformatted images were generated at the technologist workstation. This CT examination was performed using dose optimization techniques as appropriate, variously including the following: *Automated exposure control *Adjustment of mA and/or kV according to patient size (this includes techniques or standardized protocols for targeted exams where dose is matched to indication/reason for exam; i.e. extremities or head) *Use of iterative reconstruction technique DLP: 610 mGy-cm FINDINGS: There is no evidence of acute intracranial hemorrhage or territorial infarction. No abnormal mass-effect or midline shift is seen. Pepper to white matter differentiation is well preserved. No extra-axial fluid collections are identified. The supratentorial ventricles and sulci are normal in size. There is mild prominence of the sulci loss in the bilateral cerebellar hemispheres, which may be consistent with volume loss. There is no abnormal attenuation within the brain parenchyma. The osseous structures and soft tissues are normal. The mastoid air cells are well-aerated. There is mild mucoperiosteal thickening the bilateral inferior maxillary sinuses. CT/CT head/brain wo IV con IMPRESSION: 1. There are no acute bleeds or territorial infarcts. No masses are demonstrated. 2. There is mild prominence of the sulci in the bilateral cerebellar hemispheres, which may be consistent with volume loss. 3. There is mild maxillary sinus mucoperiosteal thickening.
--- NOTE | 2023-04-21 12:54 | ED.GENADULT ---
HPI - General Adult General Chief complaint: ETOH/Substance Use Stated complaint: ETOH WITHDRAWAL Time Seen by Provider: 04/21/23 12:50 Source: patient and EMS Mode of arrival: EMS Limitations: no limitations History of Present Illness HPI narrative: Is a 42-year-old female history of alcohol use disorder, depression, psychosis, GERD, transaminitis presenting to the emergency department for evaluation of nausea, vomiting, headache, patient reports she was discharged yesterday from [facility] where she was admitted status post fall and has a broken wrist, and also admitted for alcohol withdrawal. Patient tells me the last drink she had was this past Monday, 5 days ago. She tells me she typically drinks 5 nips when she is drinking. No history of alcohol withdrawal seizures or delirium tremens. No suicidal or homicidal ideation. No hallucinations. She has not seeking detox at this time. No new falls. Denies chest pain, shortness of breath, hematemesis, changes in urinary habits or bowel habits, visual disturbances, dizziness, weakness Related Data Home Medications Medication Instructions Recorded Confirmed clonidine HCl 0.1 mg tablet 0.1 mg PO TID PRN Anxiety 01/15/23 04/10/23 buspirone 10 mg tablet 10 mg PO BID 03/10/23 04/10/23 multivitamin 1 tab PO DAILY 03/29/23 04/10/23 hydroxyzine HCl 25 mg tablet 25 mg PO BEDTIME 04/10/23 04/10/23 meclizine 12.5 mg tablet 12.5 mg PO TID PRN Dizziness 04/10/23 04/10/23 naproxen 500 mg tablet 500 mg PO BID PRN Pain (Scale 04/10/23 04/10/23 Score 1-3) propranolol 10 mg tablet 10 mg PO TID 04/10/23 04/10/23 thiamine HCl (vitamin B1) 100 mg 100 mg PO DAILY 04/10/23 04/10/23 tablet Previous Rx's Medication Instructions Recorded lorazepam 1 mg tablet (Ativan) 1 mg PO Q4-6H PRN alcohol 03/09/23 withdrawal #20 tabs acamprosate 333 mg tablet,delayed 666 mg (2 x 333 mg) PO TID #60 tabs 03/13/23 release prazosin 1 mg capsule 1 mg PO BEDTIME #90 caps 03/20/23 magnesium oxide 400 mg (241.3 mg 400 mg PO DAILY #90 tabs 04/12/23 magnesium) tablet oxycodone 5 mg tablet 5 mg PO Q4H PRN modertae pain #20 04/12/23 tabs thiamine mononitrate (vit B1) 100 100 mg PO DAILY #90 tabs 04/12/23 mg tablet chlordiazepoxide HCl 25 mg capsule 25 mg PO Q6H PRN alcohol 04/21/23 withdrawal #14 caps Allergies Allergy/AdvReac Type Severity Reaction Status Date / Time Sulfa (Sulfonamide Allergy Mild RASH Verified 03/29/23 07:58 Antibiotics) [SULFA (SULFONAMIDE ANTIBIOTICS)] amoxicillin [From Augmentin] AdvReac Intermediate Abdominal Verified 04/12/23 04:31 Pain clavulanic acid AdvReac Intermediate Abdominal Verified 04/12/23 04:31 [From Augmentin] Pain gabapentin AdvReac Intermediate Dizziness Verified 04/12/23 04:31 magnesium AdvReac Diarrhea Verified 03/29/23 07:58 Review of Systems Review of Systems: Yes all other systems are reviewed and are negative [facility] Past Medical History Attestation statement: The following information was validated with the patient. Source: old records reviewed and nursing notes reviewed Medical History Fracture of greater tuberosity of right humerus Alcohol use disorder, severe, dependence Closed fracture of greater tuberosity of right humerus Pancytopenia Alcohol withdrawal seizure Diverticulitis Pelvic abscess in female Anxiety Alcohol abuse Surgical History No pertinent past surgical history Family History Family History Father Medical history unknown Mother Medical history unknown Paternal Grandfather Cancer Sister Epilepsy Daughter In good health Son In good health Other Substance use disorder Social History Social History Household Members: None Housing: Apartment Do you presently have visiting nurse or other home services: No Unable to assess alcohol history related to: Refusing to respond Alcohol intake: current Alcohol intake frequency: 3 or more drinks per day Alcohol type: wine and hard liquor Comment: REFUSING ALARM Patient Tobacco Use Status: Current everyday Tobacco user Tobacco use type: Cigarette Cigarettes Per Day: 4 Smoked in Last 30 Days: Yes e-Cigarette/Vaping Use: Never Used Second Hand Smoke Exposure: No Use of substances other than those prescribed or required for medical reasons: No Substance Use Type: Marijuana Advance Directives: Yes Advance Directives on File: Yes Advance Directives Date on File: 01/25/21 service: No Current occupational status: unemployed Current occupation: right hand dominant Cognitive needs: No Hearing needs: No Vision needs: No Physical Exam ED Vital Signs: Vital Signs - 24 hr 04/21/23 13:13 04/21/23 14:10 04/21/23 16:10 Temperature 98 F Pulse Rate 74 67 58 Respiratory Rate 18 18 18 Blood Pressure 104/70 125/89 Pulse Oximetry 98 96 100 Oxygen Delivery Method Room Air Room Air Room Air BMI result Body Mass Index 22.1 vss Appearance: Alert.? Oriented X3.? No acute distress.? Mild anxiety. Head: Normocephalic, atraumatic, no step-offs or deformities Eyes: Pupils equal, round and reactive to light.? No tongue fasciculations. Neck: Normal inspection.? Neck supple.? CVS: Normal heart rate and rhythm.? Pulses normal.? Respiratory: No respiratory distress.? Breath sounds normal.? Abdomen: Soft and nontender.? Skin: Skin warm and dry.? Normal skin color.? Normal skin turgor.? Extremities: No lower extremity edema.? No calf ttp. 5/5 strength to bilateral upper and lower extremities. Patient does not have any tremors upper extremity. Neuro: Oriented X 3.? No motor deficit.? No sensory deficit. CN 2-12 intact Course Reevaluation(s) Reevaluation #1: Patient reports that her headache continues to get worse she states she did have a fall with loss of consciousness that was worked up at [facility] however her headache went away after that, now she is having headache that does not feel like her typical. I suspect this is likely post concussive syndrome. However will scan her head to place safe. Time: 15:11 Reevaluation #2: CT head no acute bleeds or territorial infarcts. No masses or demonstrated. Prominence of the sulci and bilateral cerebellar hemispheres which could be consistent with volume loss. No signs of cerebellar infarct. Mild maxillary sinus mucoperiosteal thickening. Patient feeling much better. No longer having headache. No signs of acute alcohol withdrawal at this time. Will send her home with [facility]. Patient has adequate resources for detox however she does not want to talk to somebody today. No SI or HI. Educated patient on diagnosis and treatment plan, answered all question, patient verbalizes understanding. At this time patient will be discharged home, advised to return with new or worsening symptoms. Educated on worrisome signs and symptoms and when to return. At this time I feel comfortable discharge home. Time: 17:13 Medications Administered Discontinued Medications Generic Name Dose Route Start Last Admin Trade Name Carlos PRN Reason Stop Dose Admin Lorazepam 2 mg 04/21/23 13:26 04/21/23 13:33 Lorazepam 1 Mg Tablet PO 04/21/23 13:27 2 mg ONCE ONE Administration Naproxen 500 mg 04/21/23 13:32 04/21/23 14:10 Naproxen 500 Mg Tablet PO 04/21/23 13:33 500 mg ONCE ONE Administration Medical Decision Making Medical Decision Making [facility] Narrative: 42-year-old female presents with nausea, vomiting, headache. She has a regular drinker last drink was on Monday, was discharged from [facility] last night. Physical examination patient with mild anxiety. No tremors, no tongue fasciculations. Likely mild alcohol withdrawal. Unlikely intracranial hemorrhage, stroke, posterior stroke. No signs of delirium tremens. Will rule out metabolic derangements. No suicidal or homicidal ideation. Plan labs CIWA-2 Differential Diagnosis Differential Diagnoses: The differential diagnosis associated with the presentation includes Likely mild alcohol withdrawal. Unlikely intracranial hemorrhage, stroke, posterior stroke. No signs of delirium tremens. Will rule out metabolic derangements. No suicidal or homicidal ideation. Admission/Observation Consideration of admission/observation: Escalation of care including admission/observation considered Unlikely Lab Data [facility] Lab Attestation statement: I reviewed the patient's lab results. 04/21/23 14:45 04/21/23 14:45 Labs: Lab Results 04/21/23 Range/Units 14:45 WBC 8.1 (4.8-10.8) X10*3/uL RBC 4.00 L (4.20-5.50) X10*6/uL Hgb 11.1 L (12.0-16.0) g/dl Hct 34.1 L (37.0-47.0) % MCV 85.3 (80.0-98.0) fL MCH 27.8 (27.0-33.0) pg MCHC 32.6 (31.0-35.0) g/dl RDW 16.3 H (11.0-16.0) % Plt Count 428 H D (160-400) X10*3/uL MPV 9.9 (9.4-12.3) fL Immature Gran % (Auto) 0.2 (0.0-0.4) % Neut % (Auto) 67.5 (45-73) % Lymph % (Auto) 15.8 L (20-40) % Jay % (Auto) 7.0 (2-11) % Eos % (Auto) 8.6 H (0-4) % Baso % (Auto) 0.9 (0-2) % Lymph # (Auto) 1.3 (1.2-4.9) X10*3/uL Jay # (Auto) 0.6 (0.1-1.2) X10*3/uL Eos # (Auto) 0.7 H (0.0-0.4) X10*3/uL Baso # (Auto) 0.1 (0.0-0.2) X10*3/uL Abs Immat Gran (auto) 0.02 (0.00-0.03) X10*3/uL Absolute Neuts (auto) 5.5 (2.0-8.3) x10*3/uL Absolute Nucleated RBC 0.000 (0.0-0.012) X10*3/uL Nucleated RBC % (auto) 0.0 (0.0-0.2) /100WBC Sodium 139 (135-145) mmol/L Potassium 4.3 D (3.3-5.1) mmol/L Chloride 107 (96-108) mmol/L Carbon Dioxide 21 L (22-29) mmol/L Anion Gap 15 (12-20) BUN 3 L (9-16) mg/dL Creatinine 0.54 (0.5-1.4) mg/dL Estim Creat Clear Calc 109.9 Estimated GFR > 60 Random Glucose 107 (60-115) mg/dL Calcium 9.1 D (8.4-10.2) mg/dL Magnesium 1.9 (1.6-2.6) mg/dL Total Bilirubin 0.2 (0.0-1.0) mg/dL AST 47 H (5-31) U/L ALT 23 (0-31) U/L Alkaline Phosphatase 128 H (39-117) U/L Total Protein 7.1 (6.5-8.0) g/dL Albumin 3.7 (3.5-5.0) g/dL Beta HCG, Quant < 2 mIU/mL Ethyl Alcohol < 10 mg/dL Influenza Type A (PCR) NEGATIVE (Negative) Influenza Type B (PCR) NEGATIVE (Negative) RSV RNA Qual (PCR) NEGATIVE (Negative) SARS-CoV-2 RNA (RT-PCR) NEGATIVE (Negative) External Record Review External record reviewed: Inpatient record, Office record, Outpatient record, Prior outpatient labs, Prior outpatient radiology, Primary care record and Outside ED record Tests considered The following testing was considered but not selected: Neurological assessment nonfocal. NIH stroke scale 0. Headache likely typical headache or from withdrawal. No indication for imaging. Chronic Conditions Patient?s care impacted by: Other (Librium) Social Determinants Patient?s care significantly limited by Social Determinants of Health including: Inadequate housing, Low income, Alcoholism and drug addiction in family, Problems related to primary support group, Unemployment, Problems related to employment and Other Social Determinant of Health Critical Care Time Critical Care Time Critical Care Time: No Discharge Plan Discharge Clinical Impression: Headache, Alcohol abuse with withdrawal, Post concussion syndrome Patient Disposition: Home, Self-Care Instructions: Abuse of Alcohol (DC), Acute Headache (ED), Alcohol Withdrawal (ED) Additional Instructions: Take your medications as prescribed. If you were prescribed antibiotics today, it is important that you take your medication to their entirety, do not skip any doses, do not finish them early. Follow-up with your primary care provider this week. Return to the emergency department with new or worsening symptoms. Such as fevers, chills, chest pain, shortness of breath, nausea, vomiting, dizziness, headache, vision changes, lethargy In case of emergency call 911 Librium has been sent to your pharmacy this is for alcohol withdrawal symptoms. Please do not take this with alcohol. Mixing with alcohol can cause somnolence, respiratory distress. CT/CT head/brain wo IV con IMPRESSION: 1. There are no acute bleeds or territorial infarcts. No masses are demonstrated. 2. There is mild prominence of the sulci in the bilateral cerebellar hemispheres, which may be consistent with volume loss. 3. There is mild maxillary sinus mucoperiosteal thickening. Prescriptions: New chlordiazepoxide HCl 25 mg capsule 25 mg PO Q6H PRN (Reason: alcohol withdrawal) Qty: 14 0RF No Action clonidine HCl 0.1 mg tablet 0.1 mg PO TID PRN (Reason: Anxiety) lorazepam [Ativan] 1 mg tablet 1 mg PO Q4-6H PRN (Reason: alcohol withdrawal) Qty: 20 0RF buspirone 10 mg tablet 10 mg PO BID thiamine HCl (vitamin B1) 100 mg Tablet 100 mg PO DAILY meclizine 12.5 mg tablet 12.5 mg PO TID PRN (Reason: Dizziness) propranolol 10 mg tablet 10 mg PO TID naproxen 500 mg tablet 500 mg PO BID PRN (Reason: Pain (Scale Score 1-3)) hydroxyzine HCl 25 mg tablet 25 mg PO BEDTIME magnesium oxide 400 mg (241.3 mg magnesium) Tablet 400 mg PO DAILY Qty: 90 0RF oxycodone 5 mg Tablet 5 mg PO Q4H PRN (Reason: modertae pain) Qty: 20 0RF Rx Instructions: Partial Fill upon patient request. thiamine mononitrate (vit B1) 100 mg Tablet 100 mg PO DAILY Qty: 90 0RF multivitamin Tablet 1 tab PO DAILY prazosin 1 mg capsule 1 mg PO BEDTIME Qty: 90 0RF acamprosate 333 mg tablet,delayed release (DR/EC) 666 mg PO TID Qty: 60 0RF Referrals: [facility] [Provider Group] - 1 day Stand Alone Forms: Work/School Release
[2023-04-21 12:58] VITALS: BP 118/75; PULSE 80; O2SAT 98
[2023-04-21 13:13] VITALS: BP 104/70; PULSE 74; RESP 18; TEMP 36.6; O2SAT 98; BMI 22.1
[2023-04-21] MEDS: LORazepam 1 MG TABLET 2 MG PO (13:33)
[2023-04-21 14:10] VITALS: PULSE 67; RESP 18; O2SAT 96
[2023-04-21] MEDS: NaPROXEN 500 MG TABLET PO (14:10)
[2023-04-21 14:50] LABS: MANUAL DIFF FLAG NO
[2023-04-21 14:52] LABS: Basophils Absolute Auto 0.1 X10*3/uL (0.0-0.2); Basophils Percent Auto 0.9 % (0-2); Eosinophils Absolute Auto 0.7 X10*3/uL (0.0-0.4); Eosinophils Percent Auto 8.6 % (0-4); Hematocrit 34.1 % (37.0-47.0); Hemoglobin 11.1 g/dl (12.0-16.0); Imm Gran Abs Auto 0.02 X10*3/uL (0.00-0.03); Imm Gran Pct Auto 0.2 % (0.0-0.4); Lymphocytes Absolute Auto 1.3 X10*3/uL (1.2-4.9); Lymphocytes Percent Auto 15.8 % (20-40); Mean Corpuscular HGB Conc 32.6 g/dl (31.0-35.0); Mean Corpuscular Hemoglobin 27.8 pg (27.0-33.0); Mean Corpuscular Volume 85.3 fL (80.0-98.0); Mean Platelet Volume 9.9 fL (9.4-12.3); Monocytes Absolute Auto 0.6 X10*3/uL (0.1-1.2); Neutrophils Absolute Auto 5.5 x10*3/uL (2.0-8.3); Neutrophils Percent Auto 67.5 % (45-73); Platelet Count 428 X10*3/uL (160-400); Red Cell Distribution Width 16.3 % (11.0-16.0); White Blood Count 8.1 X10*3/uL (4.8-10.8)
[2023-04-21 15:09] LABS: Alanine Aminotransferase 23 U/L (0-31); Albumin Level 3.7 g/dL (3.5-5.0); Alkaline Phosphatase 128 U/L (39-117); Anion Gap 15 (12-20); Aspartate Amino Transferase 47 U/L (5-31); Bilirubin Total 0.2 mg/dL (0.0-1.0); Blood Urea Nitrogen 3 mg/dL (9-16); Calcium 9.1 mg/dL (8.4-10.2); Carbon Dioxide 21 mmol/L (22-29); Chloride 107 mmol/L (96-108); Creatinine Clr Calc Pharmacy 109.9; Estimated Glomerular Filt Rate > 60; Ethanol < 10 mg/dL; Glucose Random 107 mg/dL (60-115); Magnesium 1.9 mg/dL (1.6-2.6); Potassium 4.3 mmol/L (3.3-5.1); Sodium 139 mmol/L (135-145); Total Protein 7.1 g/dL (6.5-8.0)
[2023-04-21 15:30] LABS: Influenza A PCR NEGATIVE (Negative); Influenza B PCR NEGATIVE (Negative); Resp Syncy Virus RNA Qual PCR NEGATIVE (Negative); SARS COV2 PCR INHOUSE NEGATIVE (Negative)
[2023-04-21 15:58] LABS: HCG Quantitative < 2 mIU/mL
[2023-04-21 16:10] VITALS: BP 125/89; PULSE 58; RESP 18; O2SAT 100
[2023-04-21] MEDS: Morphine Sulfate Immed Release 15 MG TABLET PO (17:14)
[2023-04-21] MEDS: Metoclopramide HCl 10 MG TABLET PO (17:15)
[2023-04-21] MEDS: diphenhydrAMINE HCL 25 MG CAPSULE PO (17:15)
== END 2023-04-21 18:28 | disposition home or self-care (01) ==
PROVIDERS: Physician Assistant; Emergency Provider Emergency Medicine Emergency Medical Services; PCP Physician Assistant
DX: F10.130 Alcohol abuse with withdrawal, uncomplicated (principal); Y90.0 Blood alcohol level of less than 20 mg/100 ml; F07.81 Postconcussional syndrome; R51.9 Headache, unspecified; Z11.52 Encounter for screening for COVID-19; Z20.828 Contact with and (suspected) exposure to other viral communicable diseases
CPT/HCPCS: 0241U; 36415; 70450; 80053; 80307; 83735; 84702; 85025; 99284

== ENCOUNTER 2023-05-19 09:58 | Outpatient (REF) | payer OTHER, SELFPAY ==
--- NOTE | ~2023-05-19 | XR_ITS ---
EXAMINATION: XR SHOULDER, RIGHT CLINICAL INFORMATION: Pain. COMPARISON: Prior radiographs, most recently 04/10/2023. TECHNIQUE: AP external rotation, Grashey, scapular Y, and axillary views of the right shoulder. FINDINGS: Bony alignment and mineralization are normal. No fracture or dislocation is seen. The previously noted fracture of the greater tuberosity of the proximal right humerus now appears healed. The glenohumeral joint is intact. The acromioclavicular and coracoclavicular intervals are normal. There is a tiny distal acromial undersurface osteophyte. No soft tissue calcification or body is seen. There is no right pneumothorax. XR/XR shoulder RT min 2V IMPRESSION: 1. No fracture or dislocation is seen. The previously noted fracture of the greater tuberosity of the proximal right humerus is not presently noted. 2. There is a small distal acromial undersurface osteophyte, which can be associated with rotator cuff impingement. No calcific tendinitis is noted.
--- NOTE | ~2023-05-19 | XR_ITS ---
EXAMINATION: XR WRIST, RIGHT CLINICAL INFORMATION: Pain. COMPARISON: Radiographs dated 04/09/2023. TECHNIQUE: PA, lateral, and oblique views of the right wrist. FINDINGS: Bony alignment and mineralization are normal. A fracture is again seen of the posterior metaphysis, best appreciated on the lateral view. This shows stable alignment from prior. There is a small amount of periosteal callus formation. The proximal and distal carpal rows are intact. No bone erosion. No focal soft tissue swelling, gas or foreign body is seen. XR/XR wrist RT min 3V IMPRESSION: There is stable alignment of a mildly displaced fracture of the dorsal aspect of the distal right radius.
== END 2023-05-19 09:59 | disposition home or self-care (01) ==
LOC: HO.HOSX 09:58
PROVIDERS: Visit Provider Physician Assistant
DX: M25.531 Pain in right wrist (principal); M25.511 Pain in right shoulder; S52.591D Other fractures of lower end of right radius, subsequent encounter for closed fracture with routine healing; S42.294D Other nondisplaced fracture of upper end of right humerus, subsequent encounter for fracture with routine healing; X58.XXXD Exposure to other specified factors, subsequent encounter
CPT/HCPCS: 73030; 73110; 99212

== ENCOUNTER 2023-05-19 12:58 | Outpatient (AMB) | payer OTHER, SELFPAY ==
[2023-05-19 13:24] VITALS: BMI 22.1
--- NOTE | 2023-05-19 13:24 | MHC.OFFVIS ---
Intake Vital Signs 05/19/23 13:24 Height 5 ft 3 in Weight 125 lb BMI 22.1 Intake Visit Reasons: FC-distal radius fracture RT Intake Note: Susan 42 yr old Right hand dominate female presents today for a fracture care visit for her right distal radius fracture. She [facility] [place] [facility] she was going down the stairs caring laundry and missed the railing and fell down the stairs and landed on her Right wrist. She denies any nubmness or tingling. She has pain in her wrist and shoulder. She is using naproxen and tramadol for pain with some relief. Allergies Sulfa (Sulfonamide Antibiotics) [SULFA (SULFONAMIDE ANTIBIOTICS)] Allergy (Mild, Verified 05/19/23 13:32) RASH amoxicillin [From Augmentin] Adverse Reaction (Intermediate, Verified 05/19/23 13:32) Abdominal Pain clavulanic acid [From Augmentin] Adverse Reaction (Intermediate, Verified 05/19/23 13:32) Abdominal Pain gabapentin Adverse Reaction (Intermediate, Verified 05/19/23 13:32) Dizziness magnesium Adverse Reaction (Verified 05/19/23 13:32) Diarrhea HPI FC-distal radius fracture RT HPI Details 42-year-old female returns to the office today for a follow-up right distal radius fracture and right greater tuberosity fracture. She states she is doing well and her pain is improving however she does have limited function of her right shoulder. She was unable to attend formal physical therapy when she was discharged from a short-term rehab. She was recently relocated to [place] because she had to move out of her apartment and is unable to find physical therapy facilities and [place] that accept her insurance. [facility] Medical History Fracture of greater tuberosity of right humerus Alcohol use disorder, severe, dependence Closed fracture of greater tuberosity of right humerus Pancytopenia Alcohol withdrawal seizure Diverticulitis Pelvic abscess in female Anxiety Alcohol abuse Surgical History No pertinent past surgical history Family History Father Medical history unknown Mother Medical history unknown Paternal Grandfather Cancer Sister Epilepsy Daughter In good health Son In good health Other Substance use disorder Social History Household Members: None Housing: Apartment Do you presently have visiting nurse or other home services: No Unable to assess alcohol history related to: Refusing to respond Alcohol intake: current Alcohol intake frequency: 3 or more drinks per day Alcohol type: wine and hard liquor Comment: REFUSING ALARM Patient Tobacco Use Status: Current everyday Tobacco user Tobacco use type: Cigarette Cigarettes Per Day: 4 e-Cigarette/Vaping Use: Never Used Second Hand Smoke Exposure: No Substance Use Type: Marijuana Advance Directives Date on File: 01/25/21 service: No Current occupational status: unemployed Current occupation: right hand dominant Cognitive needs: No Hearing needs: No Vision needs: No Female Reproductive History Menstrual Age of Menarche: 11 Review of Systems Const All systems reviewed & are unremarkable except as noted in HPI and below Physical Exam Vital Signs: BMI result Body Mass Index 22.1 Extrem Other: Right shoulder are normal to inspection. No tenderness over the greater tuberosity. Forward flexion to 160 degrees. External rotation to 90. Neurovascularly intact. Right wrist is normal to inspection. No direct tenderness over the distal radius. She has mild tenderness over the distal ulna. She has good flexion of the wrist however extension is limited to 10 degrees. Neurovascularly intact. Results Reviewed Results Reviewed: X-rays of the right shoulder obtained in the office today Show a well-healed greater tuberosity fracture. X-rays of the right wrist obtained in the office today show healed distal radius fracture. There is some loss of inclination of the distal radius. Assessment & Plan Assessment & Plan (1) Distal radial fracture: Code(s): S52.509A - Unspecified fracture of the lower end of unspecified radius, initial encounter for closed fracture Qualifiers: Encounter type: subsequent encounter Fracture type: closed Fracture morphology: other fracture Laterality: right Fracture healing: with routine healing Qualified Code(s): S52.591D - Other fractures of lower end of right radius, subsequent encounter for closed fracture with routine healing (2) Fracture of proximal end of right humerus: Code(s): S42.201A - Unspecified fracture of upper end of right humerus, initial encounter for closed fracture Qualifiers: Encounter type: subsequent encounter Fracture type: closed Fracture morphology: other fracture Fracture alignment: nondisplaced Fracture healing: with routine healing Qualified Code(s): S42.294D - Other nondisplaced fracture of upper end of right humerus, subsequent encounter for fracture with routine healing Plan She will begin increasing activities as tolerated. I did reassure her that the rotator cuff appears intact given her ability to forward flex and abduct the arm. As for the wrist she will discontinue the use of the brace except for any type of impact or contact activity. As long as she is pain-free she can increase activities. I did give her a handout of exercises for both the wrist and the shoulder to work on at her own pace. She does have exercise bands which she can utilize. I sent a prescription for Celebrex to her pharmacy. If symptoms arise or there is any concerns with her motion or has new onset of pain she will contact our office otherwise follow-up as needed. Orders: Orders XR wrist RT min 3V Today M25.539 - Pain in unspecified wrist Ambika Dejesus PA-C XR shoulder RT min 2V Today M25.519 - Pain in unspecified shoulder Ambika Dejesus PA-C Medications: New celecoxib (Celebrex) 200 mg PO BID 60 caps 3RF 30 days Genaro Cotter PA-C Coding Level of Care Code Global (65038) Diagnoses Other closed fracture of distal end of right radius with routine healing, subsequent encounter S52.591D Encounter type: subsequent encounter Fracture type: closed Fracture morphology: other fracture Laterality: right Fracture healing: with routine healing Other closed nondisplaced fracture of proximal end of right humerus with routine healing, subsequent encounter S42.294D Encounter type: subsequent encounter Fracture type: closed Fracture morphology: other fracture Fracture alignment: nondisplaced Fracture healing: with routine healing
== END 2023-05-19 13:53 | disposition home or self-care (01) ==
PROVIDERS: PCP Physician Assistant; Visit Provider Physician Assistant
DX: S52.591D Other fractures of lower end of right radius, subsequent encounter for closed fracture with routine healing (principal); S42.294D Other nondisplaced fracture of upper end of right humerus, subsequent encounter for fracture with routine healing
CPT/HCPCS: 99214

== ENCOUNTER 2023-05-30 19:30 | Inpatient (IN) | payer OTHER, SELFPAY ==
[2023-05-30 20:16] VITALS: BP 124/81; PULSE 130; RESP 22; TEMP 37.1; O2SAT 95; BMI 20.5
--- NOTE | 2023-05-30 20:16 | ED.GENADULT ---
HPI - General Adult General Chief complaint: ETOH/Substance Use Stated complaint: intoxicated Time Seen by Provider: 05/30/23 20:22 Source: patient Mode of arrival: ambulatory Limitations: no limitations History of Present Illness HPI narrative: Patient alcoholic was sober for last 2 months started drinking again for last 3 days while at the triage patient became unresponsive for short time no seizure activity noticed no postictal feels very anxious and crying Related Data Home Medications ?Medication ?Instructions ?Recorded ?Confirmed clonidine HCl 0.1 mg tablet 0.1 mg PO TID PRN Anxiety 01/15/23 04/10/23 multivitamin 1 tab PO DAILY 03/29/23 04/10/23 hydroxyzine HCl 25 mg tablet 25 mg PO BEDTIME 04/10/23 04/10/23 meclizine 12.5 mg tablet 12.5 mg PO TID PRN Dizziness 04/10/23 04/10/23 naproxen 500 mg tablet 500 mg PO BID PRN Pain (Scale 04/10/23 04/10/23 Score 1-3) propranolol 10 mg tablet 10 mg PO TID 04/10/23 04/10/23 thiamine HCl (vitamin B1) 100 mg 100 mg PO DAILY 04/10/23 04/10/23 tablet Previous Rx's ?Medication ?Instructions ?Recorded lorazepam 1 mg tablet (Ativan) 1 mg PO Q4-6H PRN alcohol 03/09/23 withdrawal #20 tabs acamprosate 333 mg tablet,delayed 666 mg (2 x 333 mg) PO TID #60 tabs 03/13/23 release prazosin 1 mg capsule 1 mg PO BEDTIME #90 caps 03/20/23 magnesium oxide 400 mg (241.3 mg 400 mg PO DAILY #90 tabs 04/12/23 magnesium) tablet thiamine mononitrate (vit B1) 100 100 mg PO DAILY #90 tabs 04/12/23 mg tablet chlordiazepoxide HCl 25 mg capsule 25 mg PO Q6H PRN alcohol 04/21/23 withdrawal #14 caps tramadol 50 mg tablet 50 mg PO BID PRN pain 4 days #8 05/11/23 tabs buspirone 10 mg tablet 10 mg PO BID 90 days #180 tabs 05/18/23 celecoxib 200 mg capsule (Celebrex) 200 mg PO BID 30 days #60 caps 05/19/23 Allergies Allergy/AdvReac Type Severity Reaction Status Date / Time Sulfa (Sulfonamide Allergy Mild RASH Verified 05/30/23 20:20 Antibiotics) [SULFA (SULFONAMIDE ANTIBIOTICS)] amoxicillin [From Augmentin] AdvReac Intermediate Abdominal Verified 05/30/23 20:20 Pain clavulanic acid AdvReac Intermediate Abdominal Verified 05/30/23 20:20 [From Augmentin] Pain gabapentin AdvReac Intermediate Dizziness Verified 05/30/23 20:20 magnesium AdvReac Diarrhea Verified 05/30/23 20:20 Review of Systems Review of Systems: Yes all other systems are reviewed and are negative [facility] Past Medical History Medical History Fracture of greater tuberosity of right humerus Alcohol use disorder, severe, dependence Closed fracture of greater tuberosity of right humerus Pancytopenia Alcohol withdrawal seizure Diverticulitis Pelvic abscess in female Anxiety Alcohol abuse Surgical History No pertinent past surgical history Family History Family History Father Medical history unknown Mother Medical history unknown Paternal Grandfather Cancer Sister Epilepsy Daughter In good health Son In good health Other Substance use disorder Social History Social History Household Members: None Housing: Apartment Do you presently have visiting nurse or other home services: No Unable to assess alcohol history related to: Refusing to respond Alcohol intake: current Alcohol intake frequency: 3 or more drinks per day Alcohol type: wine and hard liquor Comment: REFUSING ALARM Patient Tobacco Use Status: Current everyday Tobacco user Tobacco use type: Cigarette Cigarettes Per Day: 4 Smoked in Last 30 Days: No e-Cigarette/Vaping Use: Never Used Second Hand Smoke Exposure: No Use of substances other than those prescribed or required for medical reasons: No Substance Use Type: Marijuana Advance Directives: Yes Advance Directives on File: Yes Advance Directives Date on File: 01/25/21 Patient : No service: No Current occupational status: unemployed Current occupation: right hand dominant Cognitive needs: No Hearing needs: No Vision needs: No Physical Exam ED Vital Signs: Vital Signs - 24 hr 05/30/23 20:16 05/30/23 20:33 05/30/23 22:21 Temperature 98.7 F 98.0 F Pulse Rate 130 H 111 H 107 H Respiratory Rate 22 H 17 20 Blood Pressure 124/81 135/96 H Pulse Oximetry 95 95 97 Oxygen Delivery Method Room Air Room Air Room Air 05/30/23 23:29 05/31/23 01:00 05/31/23 02:00 Temperature 98.2 F 98.0 F Pulse Rate 103 H 99 102 H Respiratory Rate 16 16 16 Blood Pressure 109/67 109/74 115/77 Pulse Oximetry 97 98 97 Oxygen Delivery Method Room Air Room Air Room Air 05/31/23 04:00 05/31/23 06:00 05/31/23 07:14 Temperature 98.0 F 98.0 F Pulse Rate 106 H 121 H 142 H Respiratory Rate 16 18 18 Blood Pressure 119/76 128/83 124/74 Pulse Oximetry 98 98 Oxygen Delivery Method Room Air Room Air BMI result Body Mass Index 20.5 Appearance: Alert. Oriented X3. No acute distress. Eyes: PERRLA, No Nystagmus ENT: Pharynx normal. Oral Mucosa moist Neck: Normal inspection. Neck supple. CVS: Normal heart rate and rhythm. Pulses normal. Respiratory: No respiratory distress. Equal air entry bilateral, no wheezing/rales/rhonchi Abdomen: Soft and nontender. Bowel sounds are present, no mass palpable, no CVA tenderness Skin: Skin warm and dry. Normal skin color. Normal skin turgor. Extremities: No lower extremity edema. No calf tenderness Neuro: Oriented X 3. No motor deficit. No sensory deficit.No cerebellar signs , cranial nerves II-XII intact Course Course Course Narrative: RME:?43 yo female here for multiple complaints. states her mother dropped her off this evening as she has relapsed on etoh. previously sober x1 month, relapsed one week ago. endorses drinking a pint of vodka daily. last drink at 1400 today. hx of etoh withdrawal and withdrawal seizures. seeking detox. additionally endorses suprapubic abd pain x2 wks. last lmp 2 mo ago. admits to chance of . labs, UA, u preg, UDS, ethanol ordered. Full HPI, ROS and PE to be performed by the primary ED provider. Reevaluation(s) Reevaluation #1: I was informed by nursing that patient has begun having significant alcohol withdrawal symptoms and is currently scoring CIWA-13. Heart rate-140, quick review of investigations from yesterday does not demonstrate any evidence acute infection or toxicology with other substance. Patient has known alcohol use disorder. Patient started on phenobarb alcohol withdrawal protocol, I contacted inpatient hospitalist who accepts admission. 30 minutes critical care time documented for above review of chart and seen at the bedside with further history obtained. I personally attest to this time spent taking care of the patient. Time: 07:21 Medications Administered Generic Name Dose Route Start Last Admin Trade Name Freq PRN Reason Stop Dose Admin Lorazepam 2 mg 05/31/23 01:05 05/31/23 05:50 Lorazepam 1 Mg Tablet PO 2 mg RQ4H WHILE AWAKE PRN Administration Alcohol Withdrawal Discontinued Medications Generic Name Dose Route Start Last Admin Trade Name Freq PRN Reason Stop Dose Admin Sodium Chloride 1,000 mls @ 999 mls/hr 05/30/23 20:35 05/30/23 21:59 Ns IV 05/30/23 21:35 Infused .Q1H1M ONE Infusion Lorazepam 2 mg 05/30/23 20:35 05/30/23 20:55 Lorazepam 2 Mg/Ml Vial IVPUSH 05/30/23 20:36 2 mg ONCE ONE Administration Medical Decision Making Medical Decision Making MDM Narrative: Patient alcoholic with increased anxiety requesting for detox been drinking for last 3 days will get care team involved for placement for detox will start Ativan for withdrawal no seizures noticed in the ER Differential Diagnosis Differential Diagnoses: The differential diagnosis associated with the presentation includes Alcohol dependence/anxiety/alcohol withdrawal Lab Data [facility] Lab Attestation statement: I reviewed the patient's lab results. 05/30/23 20:37 05/30/23 20:37 Labs: Lab Results 05/30/23 05/31/23 Range/Units 20:37 02:56 WBC 11.0 H (4.8-10.8) X10*3/uL RBC 4.90 D (4.20-5.50) X10*6/uL Hgb 13.2 (12.0-16.0) g/dl Hct 40.4 (37.0-47.0) % MCV 82.4 (80.0-98.0) fL MCH 26.9 L (27.0-33.0) pg MCHC 32.7 (31.0-35.0) g/dl RDW 17.5 H (11.0-16.0) % Plt Count 577 H D (160-400) X10*3/uL MPV 10.0 (9.4-12.3) fL Immature Gran % (Auto) 0.2 (0.0-0.4) % Neut % (Auto) 43.7 L (45-73) % Lymph % (Auto) 43.1 H (20-40) % [place] % (Auto) 6.1 (2-11) % Eos % (Auto) 6.1 H (0-4) % Baso % (Auto) 0.8 (0-2) % Lymph # (Auto) 4.7 (1.2-4.9) X10*3/uL [place] # (Auto) 0.7 (0.1-1.2) X10*3/uL Eos # (Auto) 0.7 H (0.0-0.4) X10*3/uL Baso # (Auto) 0.1 (0.0-0.2) X10*3/uL Abs Immat Gran (auto) 0.02 (0.00-0.03) X10*3/uL Absolute Neuts (auto) 4.8 (2.0-8.3) x10*3/uL Absolute Nucleated RBC 0.000 (0.0-0.012) X10*3/uL Nucleated RBC % (auto) 0.0 (0.0-0.2) /100WBC Sodium 145 (135-145) mmol/L Potassium 3.6 (3.3-5.1) mmol/L Chloride 110 H (96-108) mmol/L Carbon Dioxide 22 (22-29) mmol/L Anion Gap 17 (12-20) BUN 8 L (9-16) mg/dL Creatinine 0.61 (0.5-1.4) mg/dL Estim Creat Clear Calc 96.3 Estimated GFR > 60 Random Glucose 90 (60-115) mg/dL Calcium 9.0 (8.4-10.2) mg/dL Magnesium 1.8 (1.6-2.6) mg/dL Total Bilirubin 0.2 (0.0-1.0) mg/dL AST 41 H (5-31) U/L ALT 30 (0-31) U/L Alkaline Phosphatase 73 (39-117) U/L Total Protein 8.3 H (6.5-8.0) g/dL Albumin 4.5 (3.5-5.0) g/dL Lipase 27 (8-78) U/L Beta HCG, Quant < 2 mIU/mL Urine Color Yellow Urine Appearance Clear Urine pH 5.5 (5.0-9.0) Ur Specific [place] 1.015 (1.005-1.025) Urine Protein Negative (Neg-Trace) mg/dL Urine Glucose (UA) Negative (Negative) mg/dL Urine Ketones Negative (Negative) mg/dL Urine Blood Negative (Negative) Urine Nitrite Negative (Negative) Ur Leukocyte Esterase Negative (Negative) Urine Test NEGATIVE (NEGATIVE) Urine Opiates Screen Not Detected (Not Detect) Urine Fentanyl Screen Not Detected (Not Detect) Ur Barbiturates Screen Not Detected (Not Detect) Ur Phencyclidine Scrn Not Detected (Not Detect) Ur Amphetamines Screen Not Detected (Not Detect) U Benzodiazepines Scrn Not Detected (Not Detect) Urine Cocaine Screen Not Detected (Not Detect) U Marijuana (THC) Screen Not Detected (Not Detect) Ethyl Alcohol 279 mg/dL Discharge Plan Discharge Clinical Impression: Alcohol intoxication, Alcohol withdrawal Patient Disposition: Admitted As Inpatient Prescriptions: No Action tramadol 50 mg tablet 50 mg PO BID PRN (Reason: pain) 4 Days Qty: 8 0RF buspirone 10 mg tablet 10 mg PO BID 90 Days Qty: 180 1RF clonidine HCl 0.1 mg tablet 0.1 mg PO TID PRN (Reason: Anxiety) lorazepam [Ativan] 1 mg tablet 1 mg PO Q4-6H PRN (Reason: alcohol withdrawal) Qty: 20 0RF thiamine HCl (vitamin B1) 100 mg Tablet 100 mg PO DAILY meclizine 12.5 mg tablet 12.5 mg PO TID PRN (Reason: Dizziness) propranolol 10 mg tablet 10 mg PO TID naproxen 500 mg tablet 500 mg PO BID PRN (Reason: Pain (Scale Score 1-3)) hydroxyzine HCl 25 mg tablet 25 mg PO BEDTIME magnesium oxide 400 mg (241.3 mg magnesium) Tablet 400 mg PO DAILY Qty: 90 0RF thiamine mononitrate (vit B1) 100 mg Tablet 100 mg PO DAILY Qty: 90 0RF chlordiazepoxide HCl 25 mg capsule 25 mg PO Q6H PRN (Reason: alcohol withdrawal) Qty: 14 0RF multivitamin Tablet 1 tab PO DAILY prazosin 1 mg capsule 1 mg PO BEDTIME Qty: 90 0RF acamprosate 333 mg tablet,delayed release (DR/EC) 666 mg PO TID Qty: 60 0RF celecoxib [Celebrex] 200 mg capsule 200 mg PO BID 30 Days Qty: 60 3RF Print Language: Maldivian
[2023-05-30 20:33] VITALS: BP 135/96; PULSE 111; RESP 17; TEMP 36.7; O2SAT 95
[2023-05-30 20:42] LABS: MANUAL DIFF FLAG NO
[2023-05-30 20:44] LABS: Basophils Absolute Auto 0.1 X10*3/uL (0.0-0.2); Basophils Percent Auto 0.8 % (0-2); Eosinophils Absolute Auto 0.7 X10*3/uL (0.0-0.4); Eosinophils Percent Auto 6.1 % (0-4); Hematocrit 40.4 % (37.0-47.0); Hemoglobin 13.2 g/dl (12.0-16.0); Imm Gran Abs Auto 0.02 X10*3/uL (0.00-0.03); Imm Gran Pct Auto 0.2 % (0.0-0.4); Lymphocytes Absolute Auto 4.7 X10*3/uL (1.2-4.9); Lymphocytes Percent Auto 43.1 % (20-40); Mean Corpuscular HGB Conc 32.7 g/dl (31.0-35.0); Mean Corpuscular Hemoglobin 26.9 pg (27.0-33.0); Mean Corpuscular Volume 82.4 fL (80.0-98.0); Monocytes Absolute Auto 0.7 X10*3/uL (0.1-1.2); Monocytes Percent Auto 6.1 % (2-11); Neutrophils Absolute Auto 4.8 x10*3/uL (2.0-8.3); Neutrophils Percent Auto 43.7 % (45-73); Platelet Count 577 X10*3/uL (160-400); Red Cell Distribution Width 17.5 % (11.0-16.0)
[2023-05-30] MEDS: LORazepam 2 MG/ML VIAL IVPUSH (20:55)
[2023-05-30] MEDS: 0.9 % Sodium Chloride 1,000 ML 999 ML IV (20:56)
[2023-05-30 21:03] LABS: Alanine Aminotransferase 30 U/L (0-31); Albumin Level 4.5 g/dL (3.5-5.0); Alkaline Phosphatase 73 U/L (39-117); Anion Gap 17 (12-20); Aspartate Amino Transferase 41 U/L (5-31); Bilirubin Total 0.2 mg/dL (0.0-1.0); Blood Urea Nitrogen 8 mg/dL (9-16); Carbon Dioxide 22 mmol/L (22-29); Chloride 110 mmol/L (96-108); Creatinine Clr Calc Pharmacy 96.3; Estimated Glomerular Filt Rate > 60; Ethanol 279 mg/dL; Glucose Random 90 mg/dL (60-115); Lipase 27 U/L (8-78); Magnesium 1.8 mg/dL (1.6-2.6); Potassium 3.6 mmol/L (3.3-5.1); Sodium 145 mmol/L (135-145); Total Protein 8.3 g/dL (6.5-8.0)
[2023-05-30 21:05] LABS: HCG Quantitative < 2 mIU/mL
[2023-05-30 22:21] VITALS: PULSE 107; RESP 20; O2SAT 97
[2023-05-30 23:29] VITALS: BP 109/67; PULSE 103; RESP 16; TEMP 36.8; O2SAT 97
--- NOTE | 2023-05-30 23:34 | MHC.EDTECH ---
This tech took over care of patient at 2300,hourly rounds and vitals completed,patient is resting comfortably at this time,call anguaino in reach
--- NOTE | 2023-05-30 23:46 | MHC.EDTECH ---
Patient is unable to give a urine at this time will re-attempt.
[2023-05-31] VITALS (11 sets, daily range): BP systolic 106–144; BP diastolic 74–90; PULSE 99–142; RESP 12–24; TEMP 36.4–37.2; O2SAT 96–98
--- NOTE | 2023-05-31 03:04 | MHC.EDTECH ---
patient ambulated with this tech to the bathroom,patient has a steady gait. urine sample obtained and sent to lab. Patient was given a turkey sandwich and a cup of andrea marlen. Hourly rounds and vitals completed,patient was changed into hospital pants for comfort.call anguiano in reach
[2023-05-31 03:08] LABS: UPreg QC Valid YES; Urine Pregnancy NEGATIVE (NEGATIVE)
[2023-05-31 03:09] LABS: Appearance Urine Clear; Color Urine Yellow; Glucose Urine UA Negative (Negative); Leukocyte Esterase Urine Negative (Negative); Nitrite Urine Negative (Negative); PH 5.5 (5.0-9.0); Specific Gravity - Urine 1.015 (1.005-1.025); Urine Blood Negative (Negative); Urine Ketones Negative (Negative); Urine Protein Negative (Neg-Trace)
[2023-05-31 03:21] LABS: Amphetamine Screen Urine Not Detected (Not Detect); Barbiturates, Urine Not Detected (Not Detect); Benzodiazepines Screen Urine Not Detected (Not Detect); Cannabinoid Screen Urine Not Detected (Not Detect); Cocaine Screen Urine Not Detected (Not Detect); Fentanyl, urine Not Detected (Not Detect); Opiate Screen Urine Not Detected (Not Detect); Phencyclidine Screen Urine Not Detected (Not Detect)
--- NOTE | 2023-05-31 04:19 | MHC.EDTECH ---
Hourly rounds and vitals completed,patient is resting comfortably,call anguiano in reach
[2023-05-31] MEDS: LORazepam 1 MG TABLET 2 MG PO (05:50)
--- NOTE | 2023-05-31 07:41 | PC.NURSE ---
Pt noted to be tachycardic between 120-140, sinus tach on monitor. Pt is alert and oriented but reports feeling unwell. CIWA scale conducted and is 13. Seizure precautions in place and provider alerted of scale. Pt reports headache, anxiety, palpitations, abdominal pain and tremors at this time. Other vital signs stable.
--- NOTE | 2023-05-31 07:42 | PC.NURSE ---
Pharmacy called for med rec.
--- NOTE | 2023-05-31 07:55 | P.HPHOSP_ITS ---
History of Present Illness Date of Service: 05/31/23 Attending physician on admission: [facility] Chief Complaint: etoh withdrawal 43-year-old female with history of alcohol use disorder, mood disorder, alcoholic fatty liver disease presented to the ED earlier today following alcohol relapse. She states she had been sober for about 1 month and then about 2 days ago began drinking again. She denies any specific trigger. She does desire detox. She states she has been drinking about a pt of hard alcohol daily over the last 2 days, last drink was around 14:30 yesterday afternoon. She has been through rehab multiple times and had been following with outpatient services. She has also been following with the [facility] but has not been seen several weeks. Previously, she states she is never experienced an alcohol withdrawal seizure or DTs. However, there was reported to be possible seizure while patient was in triage. Reportedly became unresponsive for short time but no witnessed seizure activity and patient is not postictal but feels very anxious. Since arrival, patient has been tachycardic to 132 on admission, vital signs otherwise stable. There is mild leukocytosis of 11, platelets 577. Renal function and electrolyte levels normal. Total bilirubin 0.2, AST 41, ALT 30. Urinalysis unremarkable. U tox negative, ethyl alcohol level 279 at 20:00 last night. In the ED, has been given a total of 4 mg of lorazepam as well as 1 L IV NS. She is being started on phenobarbital per protocol will be admitted for further management of acute alcohol withdrawal. Currently she was reporting tremors, clamminess, headache, palpitations, and anxiety. Denies any confusion or hallucinations. Review of Systems 2 Review of Systems: General: No fevers, malaise, unintentional weight loss HEENT: No blurred vision, diplopia. No sore throat, nasal congestion, rhinorrhea, sinus pain, ear pain Cardiovascular: No chest pain, palpitations, or leg edema Respiratory: No shortness of breath, wheezing, cough GI: No abdominal pain, nausea, vomiting, diarrhea, constipation, melena, hematochezia : No dysuria, hematuria, increased urinary frequency, decreased urinary output MSK: No myalgia, back pain Neuro: +tremors, +headache. No weakness, paresthesias. No confusion or hallucinations Skin: No rashes or lesions. +clamminess PMFSH Medical History Fracture of greater tuberosity of right humerus Alcohol use disorder, severe, dependence Closed fracture of greater tuberosity of right humerus Pancytopenia Alcohol withdrawal seizure Diverticulitis Pelvic abscess in female Anxiety Alcohol abuse Family History Father Medical history unknown Mother Medical history unknown Paternal Grandfather Cancer Sister Epilepsy Daughter In good health Son In good health Other Substance use disorder Surgical History No pertinent past surgical history Social History Household Members: None Housing: Apartment Do you presently have visiting nurse or other home services: No Unable to assess alcohol history related to: Refusing to respond Alcohol intake: current Alcohol intake frequency: 3 or more drinks per day Alcohol type: wine and hard liquor Comment: REFUSING ALARM Patient Tobacco Use Status: Current everyday Tobacco user Tobacco use type: Cigarette Cigarettes Per Day: 4 Smoked in Last 30 Days: No e-Cigarette/Vaping Use: Never Used Second Hand Smoke Exposure: No Use of substances other than those prescribed or required for medical reasons: No Substance Use Type: Marijuana Advance Directives: Yes Advance Directives on File: Yes Advance Directives Date on File: 01/25/21 Patient : No service: No Current occupational status: unemployed Current occupation: right hand dominant Cognitive needs: No Hearing needs: No Vision needs: No Meds Allergies Allergy/AdvReac Type Severity Reaction Status Date / Time Sulfa (Sulfonamide Allergy Mild RASH Verified 05/30/23 20:20 Antibiotics) [SULFA (SULFONAMIDE ANTIBIOTICS)] amoxicillin [From Augmentin] AdvReac Intermediate Abdominal Verified 05/30/23 20:20 Pain clavulanic acid AdvReac Intermediate Abdominal Verified 05/30/23 20:20 [From Augmentin] Pain gabapentin AdvReac Intermediate Dizziness Verified 05/30/23 20:20 magnesium AdvReac Diarrhea Verified 05/30/23 20:20 Active Medications: Current Medications Lorazepam (Lorazepam 1 Mg Tablet) 2 mg PO RQ4H WHILE AWAKE PRN PRN Reason: Alcohol Withdrawal Last Admin: 05/31/23 05:50 Dose: 2 mg Pharmacy Consult (Consult Rx Etoh Phenob Im/Po) 1 each MISCELLANE ONCE PRN; Protocol PRN Reason: Consult order Home Medications ?Medication ?Instructions ?Recorded ?Confirmed ?Last Taken ?Type clonidine HCl 0.1 mg tablet 0.1 mg PO TID PRN Anxiety 01/15/23 05/31/23 Unknown History multivitamin 1 tab PO DAILY 03/29/23 05/31/23 04/08/23 History hydroxyzine HCl 25 mg tablet 25 mg PO BEDTIME 04/10/23 05/31/23 05/30/23 History meclizine 12.5 mg tablet 12.5 mg PO TID PRN Dizziness 04/10/23 05/31/23 Unknown History naproxen 500 mg tablet 500 mg PO BID PRN Pain (Scale 04/10/23 05/31/23 Unknown History Score 1-3) thiamine HCl (vitamin B1) 100 mg 100 mg PO DAILY 04/10/23 05/31/23 04/08/23 History tablet hyoscyamine sulfate 0.125 mg tablet 0.25 mg PO BID PRN cramping 05/31/23 05/31/23 Unknown History Physical Exam 2 Vital Signs and Narrative: Vital Signs: Last Vital Signs Temp 98.6 F 05/31/23 07:42 Pulse 132 H 05/31/23 07:42 Resp 12 05/31/23 07:42 BP 114/82 05/31/23 07:42 Pulse Ox 97 05/31/23 07:42 O2 Del Method Room Air 05/31/23 07:42 BMI result Body Mass Index 20.5 Constitutional - Awake and Alert, anxious appearing Eyes - PERRLA, EOMI Cardiovascular - S1S2, regular rhythm, tachycardic, No edema Respiratory - Normal lung expansion, Normal respiratory effort, No respiratory distress, CTA bilaterally Gastrointestinal - NT / ND; +BS; No rebound or guarding Extremities - no calf tenderness bilaterally, no swelling Skin - Warm. very mild diaphoresis Neurological - Alert & oriented x3, mildly tremulous with outstretched hands Psychological - anxious appearing Results Labs 05/30/23 20:37 05/30/23 20:37 Labs: Laboratory Results - last 24 hr 05/30/23 05/31/23 20:37 02:56 MCV 82.4 MCH 26.9 L MCHC 32.7 RDW 17.5 H Plt Count 577 H D MPV 10.0 Immature Gran % (Auto) 0.2 Neut % (Auto) 43.7 L Lymph % (Auto) 43.1 H [place] % (Auto) 6.1 Eos % (Auto) 6.1 H Baso % (Auto) 0.8 Lymph # (Auto) 4.7 [place] # (Auto) 0.7 Eos # (Auto) 0.7 H Baso # (Auto) 0.1 Abs Immat Gran (auto) 0.02 Absolute Neuts (auto) 4.8 Absolute Nucleated RBC 0.000 Nucleated RBC % (auto) 0.0 Anion Gap 17 Estim Creat Clear Calc 96.3 Estimated GFR > 60 Random Glucose 90 Calcium 9.0 Magnesium 1.8 Total Bilirubin 0.2 AST 41 H ALT 30 Alkaline Phosphatase 73 Total Protein 8.3 H Albumin 4.5 Lipase 27 Beta HCG, Quant < 2 Urine Color Yellow Urine Appearance Clear Urine pH 5.5 Ur Specific [place] 1.015 Urine Protein Negative Urine Glucose (UA) Negative Urine Ketones Negative Urine Blood Negative Urine Nitrite Negative Ur Leukocyte Esterase Negative Urine Test NEGATIVE Urine Opiates Screen Not Detected Urine Fentanyl Screen Not Detected Ur Barbiturates Screen Not Detected Ur Phencyclidine Scrn Not Detected Ur Amphetamines Screen Not Detected U Benzodiazepines Scrn Not Detected Urine Cocaine Screen Not Detected U Marijuana (THC) Screen Not Detected Ethyl Alcohol 279 Assessment and Plan (1) Alcohol withdrawal: Status: Acute Plan 43-year-old female with history of alcohol use disorder, mood disorder, alcoholic fatty liver disease admitted for acute alcohol withdrawal with possible alcohol withdrawal seizure #Acute alcohol withdrawal with possible alcohol withdrawal seizure (period of unresponsiveness while in triage but no witnessed tonic-clonic seizure activity or jerking movements) -ethyl alcohol level on arrival to at 20:00. Last drink 14:30 yesterday -monitor on CIWA q.4h. Last CIWA score of 13 -initiate phenobarbital per protocol -IV thiamine 100 mg daily -IV folic acid 1 mg daily x3 days then transition to p.o. -seizure precautions -addiction medicine consult -monitor on telemetry given persistent tachycardia # sinus tachycardia -secondary to alcohol withdrawal -monitor for any transient dysrhythmia on telemetry # anxiety -continue home meds DVT prophylaxis-Lovenox Full code Patient requires inpatient stay of at least 2 midnights given severe nature of acute alcohol withdrawal possible alcohol withdrawal seizure witnessed in triage who will require phenobarbital per protocol with close monitoring of progression of symptoms on CIWA which can not be safely or appropriately managed in outpatient setting. She will also require addiction medicine consult to help with patient's desire for sobriety. Quality Stroke Does the patient have a stroke diagnosis?: No VTE Prior VTE?: No VTE Risk Level:: Medical - moderate - high VTE Device Contraindication: Treatment Not Indicated VTE Drug Contraindication: N/A - Med Ordered
[2023-05-31] MEDS: Enoxaparin Sodium 40 MG/0.4 ML SYRINGE SUBCUT (08:23)
[2023-05-31] MEDS: Propranolol HCL 10 MG TABLET PO (08:23)
[2023-05-31] MEDS: PHENobarbitaL sodium 130 MG/ML IM ONCE 251 MG IM (08:24)
[2023-05-31] MEDS: Thiamine HCL 100 MG in 0.9 % Sodium Chloride 100 ML 202 MG IV (08:27)
--- NOTE | 2023-05-31 08:33 | PHA.MEDREC ---
Pharmacy Consult ? Medication Reconciliation Pharmacy has completed the medication reconciliation with rx claims, pt confirmed all medications, mentions no longer taking the propranolol, chlordiazepoxide and lorazepam. Reports not taking magnesium oxide because it upsets her stomach.
[2023-05-31] MEDS: Folic Acid 1 MG in 0.9 % Sodium Chloride 50 ML 100.4 MG IV (09:09)
[2023-05-31] MEDS: 0.9 % Sodium Chloride 1,000 ML 100 ML IVCONT ×2 (09:34→21:25)
--- NOTE | 2023-05-31 09:46 | PC.NURSE ---
Pt verball reports feeling better s/p Pheno, HR down to low 100s
--- NOTE | 2023-05-31 10:27 | PC.NURSE ---
Kerrie Mulligan at bedside at this time
[2023-05-31] MEDS: PHENobarbitaL sodium 130 MG/ML VIAL IM Q3Hx2 189 MG IM ×2 (11:13→14:17)
--- NOTE | 2023-05-31 11:53 | PC.NURSE ---
Assumed care of this patient at 1100, patient alert and oriented on stretcher at this time, 2nd dose of IM phenobarb given per MAR, scored on CIWA, VS WNL.
[2023-05-31] MEDS: Acetaminophen 325 MG TABLET 650 MG PO (14:20)
[2023-05-31] MEDS: cloNIDine HCL 0.1 MG TABLET PO (17:05)
[2023-05-31] MEDS: traMADoL HCL 50 MG TABLET PO (17:05)
[2023-05-31] MEDS: PHENobarbitaL 15 MG TABLET 45 MG PO (20:56)
[2023-05-31] MEDS: Prazosin HCL 1 MG CAPSULE PO (20:56)
[2023-05-31] MEDS: busPIRone HCl 10 MG TABLET PO (20:56)
[2023-05-31] MEDS: hydrOXYzine HCL 25 MG TABLET PO (20:56)
--- NOTE | 2023-05-31 21:31 | PC.NURSE ---
this rn assumed care of pt at 1900. pt a&ox4, respirations even and unlabored. no acute distress noted. pt medicated per mar, tolerated well with water. pt CIWA 0 at this time.
--- NOTE | 2023-05-31 21:46 | PC.NURSE ---
pt ambulated to bathroom with steady gait.
[2023-06-01 00:19] VITALS: BP 114/79; PULSE 76; RESP 17; TEMP 36.8; O2SAT 97
[2023-06-01 02:58] VITALS: BP 125/79; PULSE 88; RESP 20; TEMP 36.3; O2SAT 98
--- NOTE | 2023-06-01 02:58 | PC.NURSE ---
this RN received medications from mita solorio, medication sealed in pharmacy bag at this time.
[2023-06-01 06:35] LABS: MANUAL DIFF FLAG NO
[2023-06-01 06:44] LABS: Basophils Percent Auto 0.6 % (0-2); Eosinophils Absolute Auto 0.8 X10*3/uL (0.0-0.4); Eosinophils Percent Auto 11.4 % (0-4); Hematocrit 34.3 % (37.0-47.0); Hemoglobin 12.2 g/dl (12.0-16.0); Imm Gran Abs Auto 0.01 X10*3/uL (0.00-0.03); Imm Gran Pct Auto 0.1 % (0.0-0.4); Lymphocytes Absolute Auto 2.1 X10*3/uL (1.2-4.9); Lymphocytes Percent Auto 30.9 % (20-40); Mean Corpuscular HGB Conc 35.6 g/dl (31.0-35.0); Mean Corpuscular Hemoglobin 29.4 pg (27.0-33.0); Mean Corpuscular Volume 82.7 fL (80.0-98.0); Mean Platelet Volume 10.4 fL (9.4-12.3); Monocytes Absolute Auto 0.7 X10*3/uL (0.1-1.2); Monocytes Percent Auto 9.5 % (2-11); Neutrophils Absolute Auto 3.3 x10*3/uL (2.0-8.3); Neutrophils Percent Auto 47.5 % (45-73); Platelet Count 367 X10*3/uL (160-400); Red Blood Count 4.15 X10*6/uL (4.20-5.50); Red Cell Distribution Width 16.8 % (11.0-16.0); White Blood Count 6.9 X10*3/uL (4.8-10.8)
[2023-06-01 07:02] LABS: Anion Gap 9 (12-20); Blood Urea Nitrogen 5 mg/dL (9-16); Calcium 8.7 mg/dL (8.4-10.2); Carbon Dioxide 23 mmol/L (22-29); Chloride 110 mmol/L (96-108); Creatinine Clr Calc Pharmacy 110.8; Estimated Glomerular Filt Rate > 60; Glucose Random 87 mg/dL (60-115); Potassium 3.9 mmol/L (3.3-5.1); Sodium 138 mmol/L (135-145)
[2023-06-01 08:00] VITALS: BP 125/84; PULSE 99; RESP 16; TEMP 36.1; O2SAT 99
[2023-06-01] MEDS: busPIRone HCl 10 MG TABLET PO ×2 (08:30→20:58)
[2023-06-01] MEDS: Multivitamin TABLET 1 TAB PO (08:30)
[2023-06-01] MEDS: traMADoL HCL 50 MG TABLET PO ×2 (08:30→14:24)
[2023-06-01] MEDS: PHENobarbitaL 15 MG TABLET 45 MG PO ×2 (08:30→20:58)
[2023-06-01] MEDS: Folic Acid 1 MG in 0.9 % Sodium Chloride 50 ML 100.4 MG IV (08:31)
[2023-06-01] MEDS: 0.9 % Sodium Chloride 1,000 ML 100 ML IVCONT (08:31)
[2023-06-01] MEDS: Enoxaparin Sodium 40 MG/0.4 ML SYRINGE SUBCUT (08:31)
--- NOTE | 2023-06-01 09:37 | MHC.CM.PN ---
CM MET WITH PT AT BEDSIDE. PT LIVES WITH FRIENDS, +THRIVE ASSESSMENT, RESOURCE GUIDE PROVIDED. INDEPENDENT AT BASELINE. PT ATTENDS MH THERAPY OP. + HCP ON FILE PCP JEYSON HAYS DP: HOME WITH NO SERVICES ANTICIPATED. PT MAY NEED A RIDE HOME VIA SHUTTLE OR LYFT. CM WILL CONTINUE TO FOLLOW FOR ANY CHANGE IN DC NEEDS/PLAN.
[2023-06-01] MEDS: Thiamine HCL 100 MG TABLET PO (11:38)
[2023-06-01 11:41] VITALS: BP 122/79; PULSE 98; RESP 20; TEMP 36.1; O2SAT 97
--- NOTE | 2023-06-01 12:16 | HO.PM.IMPN ---
Subjective Subjective Date of Service: 06/01/23 Interval History: Feeling better this morning denies tremors, no lightheadedness, no dizziness, no palpitations, tolerating diet with no nausea no vomiting, no abdominal pain no diarrhea complaining of right knee pain, denies trauma injury. Review of Systems All other system reviewed and negative. Physical Exam Vital Signs: Vital Signs: Last Vital Signs Temp 97 F 06/01/23 11:41 Pulse 98 06/01/23 11:41 Resp 20 06/01/23 11:41 BP 122/79 06/01/23 11:41 Pulse Ox 97 06/01/23 11:41 O2 Del Method Room Air 06/01/23 11:41 BMI result Body Mass Index 20.5 Const: Other: General awake alert x3, resting comfortably in no acute distress. Neck supple no JVD. CVS regular rate rhythm, Respiratory lungs clear to auscultation, no respiratory distress, no wheeze, no rhonchi. Gastrointestinal abdomen soft, non tender, bowel sounds audible Extremities no edema. Neuro non focal , no tremors Skin no rash Right knee, no redness, no swelling, no effusion , good range of motion. Objective Data Active Medications Acetaminophen (Acetaminophen 325 Mg Tablet) 650 mg PO Q6H PRN PRN Reason: Pain, Mild (Pain Scale 1-3) Last Admin: 05/31/23 14:20 Dose: 650 mg Documented By: ROSE Buspirone HCl (Buspirone Hcl 10 Mg Tablet) 10 mg PO BID [facility] Last Admin: 06/01/23 08:30 Dose: 10 mg Documented By: DANNY Clonidine HCl (Clonidine Hcl 0.1 Mg Tablet) 0.1 mg PO TID PRN; Protocol PRN Reason: Anxiety Last Admin: 05/31/23 17:05 Dose: 0.1 mg Documented By: TIFFAYN Enoxaparin Sodium (Enoxaparin Sodium 40 Mg/0.4 Ml Syringe) 40 mg SUBCUT Q24H [facility] Last Admin: 06/01/23 08:31 Dose: 40 mg Documented By: DANNY Hydroxyzine HCl (Hydroxyzine Hcl 25 Mg Tablet) 25 mg PO BEDTIME [facility] Last Admin: 05/31/23 20:56 Dose: 25 mg Documented By: OMER Sodium Chloride (Ns) 1,000 mls @ 100 mls/hr IVCONT .Q10H [facility] Last Admin: 06/01/23 08:31 Dose: 100 mls/hr Documented By: DANNY Thiamine HCl 100 mg/ Sodium (Chloride) 101 mls @ 202 mls/hr IV DAILY [facility] Last Admin: 06/01/23 10:23 Dose: Not Given Documented By: DANNY Non-Admin Reason: Duplicate Order Folic Acid 1 mg/ Sodium (Chloride) 50.2 mls @ 100.4 mls/hr IV DAILY [facility] Stop: 06/02/23 09:29 Last Infusion: 06/01/23 09:45 Dose: Infused Documented By: DANNY Lorazepam (Lorazepam 1 Mg Tablet) 2 mg PO RQ4H WHILE AWAKE PRN PRN Reason: Alcohol Withdrawal Last Admin: 05/31/23 05:50 Dose: 2 mg Documented By: LETICIA Meclizine HCl (Meclizine Hcl 12.5 Mg Tablet) 12.5 mg PO TID PRN PRN Reason: Dizziness Multivitamins/Vitamin C (Multivitamin Tablet) 1 tab PO DAILY [facility] Last Admin: 06/01/23 08:30 Dose: 1 tab Documented By: DANNY Naproxen (Naproxen 500 Mg Tablet) 500 mg PO BID PRN PRN Reason: Pain (Scale Score 1-3) Patient Own ( Hyoscyamine Sulfate 0.125 Mg Tablet) 0.25 mg PO BID PRN PRN Reason: cramping Ondansetron HCl (Ondansetron Hcl 4 Mg/2 Ml Vial) 4 mg IVPUSH Q8H PRN PRN Reason: Nausea and Vomiting Pharmacy Consult (Consult Rx Etoh Phenob Im/Po) 1 each MISCELLANE ONCE PRN; Protocol PRN Reason: Consult order Phenobarbital (Phenobarbital 15 Mg Tablet) 45 mg PO BID [facility] Stop: 06/02/23 09:01 Last Admin: 06/01/23 08:30 Dose: 45 mg Documented By: DANNY Phenobarbital (Phenobarbital 15 Mg Tablet) 15 mg PO BID [facility] Stop: 06/04/23 09:01 Phenobarbital (Phenobarbital 15 Mg Tablet) 15 mg PO DAILY [facility] Stop: 06/06/23 09:01 Prazosin HCl (Prazosin Hcl 1 Mg Capsule) 1 mg PO BEDTIME [facility]; Protocol Last Admin: 05/31/23 20:56 Dose: 1 mg Documented By: OMER Senna (Sennosides 8.6 Mg Tablet) 17.2 mg PO BEDTIME PRN PRN Reason: Constipation Thiamine HCl (Thiamine Hcl 100 Mg Tablet) 100 mg PO DAILY [facility] Last Admin: 06/01/23 11:38 Dose: 100 mg Documented By: DANNY Tramadol HCl (Tramadol Hcl 50 Mg Tablet) 50 mg PO BID PRN PRN Reason: Pain, Moderate(Pain Scale 4-6) Last Admin: 06/01/23 08:30 Dose: 50 mg Documented By: DANNY Labs 06/01/23 06:12 06/01/23 06:12 Labs: Laboratory Results - last 24 hr 06/01/23 06:12 MCV 82.7 MCH 29.4 MCHC 35.6 H RDW 16.8 H Plt Count 367 D MPV 10.4 Immature Gran % (Auto) 0.1 Neut % (Auto) 47.5 Lymph % (Auto) 30.9 [place] % (Auto) 9.5 Eos % (Auto) 11.4 H Baso % (Auto) 0.6 Lymph # (Auto) 2.1 [place] # (Auto) 0.7 Eos # (Auto) 0.8 H Baso # (Auto) 0.0 Abs Immat Gran (auto) 0.01 Absolute Neuts (auto) 3.3 Absolute Nucleated RBC 0.000 Nucleated RBC % (auto) 0.0 Anion Gap 9 L Estim Creat Clear Calc 110.8 Estimated GFR > 60 Random Glucose 87 Calcium 8.7 Assessment and Plan (1) Alcohol withdrawal: Status: Acute Plan 43-year-old female with history of alcohol use disorder, mood disorder, alcoholic fatty liver disease admitted for acute alcohol withdrawal with possible alcohol withdrawal seizure #Acute alcohol withdrawal with possible alcohol withdrawal seizure (period of unresponsiveness while in triage but no witnessed tonic-clonic seizure activity or jerking movements) Tachycardia resolved, no tremors -ethyl alcohol level on arrival 279 on arrival -continue phenobarb protocol, thiamine and folic acid, monitor on CIWA q.4h. DC IV fluids -seizure precautions -follow addiction medicine consult -monitor on telemetry # sinus tachycardia -secondary to alcohol withdrawal, resolved # anxiety -continue home meds # right knee pain, good range of motion, asymmetry in both knees noted likely chronic. Recommend outpatient follow-up with PCP. DVT prophylaxis-Lovenox Full code Patient requires inpatient hospitalization given severe nature of acute alcohol withdrawal possible alcohol withdrawal seizure witnessed in triage who will require phenobarbital per protocol with close monitoring of progression of symptoms on CIWA which can not be safely or appropriately managed in outpatient setting. She will also require addiction medicine consult to help with patient's desire for sobriety. Quality Stroke Does the patient have a stroke diagnosis?: No VTE Prior VTE?: No VTE Risk Level:: Medical - moderate - high VTE Device Contraindication: Treatment Not Indicated VTE Drug Contraindication: N/A - Med Ordered
--- NOTE | 2023-06-01 15:04 | HO.ADDICT_ITS ---
History of Present Illness Date of Service: 06/01/2023 Chief Complaint: Alcohol withdrawal, ?w/d seizure Reason for Consult: AUD Sources of Information: patient interviewed and chart reviewed HPI Narrative: Patient is a 43 year old female with long standing history of alcohol use disorder medically admitted with alcohol withdrawal. Known to this show card writer and the [facility] via previous admissions and outpatient treatment. Seen in room 485, patient awake, alert and engaged in interview. Happy to see this show card writer. She reports she had not been drinking up until a few days ago when she started drinking at her mothers house and was brought to the ED. She states that she recently moved in with someone she knew in her 20's and it has been a challenging transition. Unclear how long she has been staying there. She has been evicted from her previous apt. Currently on phenobarbitol protocol and appearing comfortable. Denies any withdrawal sx. Discussed thoughts regarding plan for addressing drinking at discharge. Patient does not want any type of residential program (most treatment settings for AUD have been via section 35 commitment, so this apprehension makes sense). Discussed PHP or IOP. She has attended IOP in the past and found it helpful. Open to exploring that as an option. Past Psychiatric History: IOP Medical Evaluation Reviewed: Yes Review of Systems Constitutional: Reports as per HPI Diagnostics Vital Signs (24Hr): Vital Signs - 24 hr 05/31/23 17:06 05/31/23 20:21 06/01/23 00:19 Temperature 98.3 F Pulse Rate 120 H 107 H 76 Respiratory Rate 16 24 H 17 Blood Pressure 144/90 H 119/78 114/79 Pulse Oximetry 97 97 Oxygen Delivery Method Room Air Room Air 06/01/23 02:58 06/01/23 08:00 06/01/23 11:41 Temperature 97.3 F 97 F 97 F Pulse Rate 88 99 98 Respiratory Rate 20 16 20 Blood Pressure 125/79 125/84 122/79 Pulse Oximetry 98 99 97 Oxygen Delivery Method Room Air Room Air Room Air BMI result Body Mass Index 20.5 Labs 06/01/23 06:12 06/01/23 06:12 Labs: Laboratory Results - last 48 hr 05/30/23 05/31/23 06/01/23 20:37 02:56 06:12 WBC 11.0 H 6.9 RBC 4.90 D 4.15 L Hgb 13.2 12.2 Hct 40.4 34.3 L MCV 82.4 82.7 MCH 26.9 L 29.4 MCHC 32.7 35.6 H RDW 17.5 H 16.8 H Plt Count 577 H D 367 D MPV 10.0 10.4 Immature Gran % (Auto) 0.2 0.1 Neut % (Auto) 43.7 L 47.5 Lymph % (Auto) 43.1 H 30.9 [place] % (Auto) 6.1 9.5 Eos % (Auto) 6.1 H 11.4 H Baso % (Auto) 0.8 0.6 Lymph # (Auto) 4.7 2.1 [place] # (Auto) 0.7 0.7 Eos # (Auto) 0.7 H 0.8 H Baso # (Auto) 0.1 0.0 Abs Immat Gran (auto) 0.02 0.01 Absolute Neuts (auto) 4.8 3.3 Absolute Nucleated RBC 0.000 0.000 Nucleated RBC % (auto) 0.0 0.0 Sodium 145 138 Potassium 3.6 3.9 Chloride 110 H 110 H Carbon Dioxide 22 23 Anion Gap 17 9 L BUN 8 L 5 L Creatinine 0.61 0.53 Estim Creat Clear Calc 96.3 110.8 Estimated GFR > 60 > 60 Random Glucose 90 87 Calcium 9.0 8.7 Magnesium 1.8 Total Bilirubin 0.2 AST 41 H ALT 30 Alkaline Phosphatase 73 Total Protein 8.3 H Albumin 4.5 Lipase 27 Beta HCG, Quant < 2 Urine Color Yellow Urine Appearance Clear Urine pH 5.5 Ur Specific [place] 1.015 Urine Protein Negative Urine Glucose (UA) Negative Urine Ketones Negative Urine Blood Negative Urine Nitrite Negative Ur Leukocyte Esterase Negative Urine Test NEGATIVE Urine Opiates Screen Not Detected Urine Fentanyl Screen Not Detected Ur Barbiturates Screen Not Detected Ur Phencyclidine Scrn Not Detected Ur Amphetamines Screen Not Detected U Benzodiazepines Scrn Not Detected Urine Cocaine Screen Not Detected U Marijuana (THC) Screen Not Detected Ethyl Alcohol 279 Mental Status Exam Mental Status Exam Patient Appearance: Well Grooomed Level of Consciousness: Awake, Appropriate and Alert Patient Behavior: Appropriate and Talkative Mood Description: Calm Affect Description: Calm Ability to Follow Directions: Excellent Speech Pattern: Clear Thought Process: Intact Judgement: Fair Medications Medications Current Medications Acetaminophen (Acetaminophen 325 Mg Tablet) 650 mg PO Q6H PRN PRN Reason: Pain, Mild (Pain Scale 1-3) Last Admin: 05/31/23 14:20 Dose: 650 mg Buspirone HCl (Buspirone Hcl 10 Mg Tablet) 10 mg PO BID [facility] Last Admin: 06/01/23 08:30 Dose: 10 mg Clonidine HCl (Clonidine Hcl 0.1 Mg Tablet) 0.1 mg PO TID PRN; Protocol PRN Reason: Anxiety Last Admin: 05/31/23 17:05 Dose: 0.1 mg Enoxaparin Sodium (Enoxaparin Sodium 40 Mg/0.4 Ml Syringe) 40 mg SUBCUT Q24H [facility] Last Admin: 06/01/23 08:31 Dose: 40 mg Folic Acid (Folic Acid 1 Mg Tablet) 1 mg PO DAILY [facility] Hydroxyzine HCl (Hydroxyzine Hcl 25 Mg Tablet) 25 mg PO BEDTIME [facility] Last Admin: 05/31/23 20:56 Dose: 25 mg Lorazepam (Lorazepam 1 Mg Tablet) 2 mg PO RQ4H WHILE AWAKE PRN PRN Reason: Alcohol Withdrawal Last Admin: 05/31/23 05:50 Dose: 2 mg Meclizine HCl (Meclizine Hcl 12.5 Mg Tablet) 12.5 mg PO TID PRN PRN Reason: Dizziness Multivitamins/Vitamin C (Multivitamin Tablet) 1 tab PO DAILY [facility] Last Admin: 06/01/23 08:30 Dose: 1 tab Naproxen (Naproxen 500 Mg Tablet) 500 mg PO BID PRN PRN Reason: Pain (Scale Score 1-3) Patient Own ( Hyoscyamine Sulfate 0.125 Mg Tablet) 0.25 mg PO BID PRN PRN Reason: cramping Ondansetron HCl (Ondansetron Hcl 4 Mg/2 Ml Vial) 4 mg IVPUSH Q8H PRN PRN Reason: Nausea and Vomiting Pharmacy Consult (Consult Rx Etoh Phenob Im/Po) 1 each MISCELLANE ONCE PRN; Protocol PRN Reason: Consult order Phenobarbital (Phenobarbital 15 Mg Tablet) 45 mg PO BID [facility] Stop: 06/02/23 09:01 Last Admin: 06/01/23 08:30 Dose: 45 mg Phenobarbital (Phenobarbital 15 Mg Tablet) 15 mg PO BID [facility] Stop: 06/04/23 09:01 Phenobarbital (Phenobarbital 15 Mg Tablet) 15 mg PO DAILY [facility] Stop: 06/06/23 09:01 Prazosin HCl (Prazosin Hcl 1 Mg Capsule) 1 mg PO BEDTIME [facility]; Protocol Last Admin: 05/31/23 20:56 Dose: 1 mg Senna (Sennosides 8.6 Mg Tablet) 17.2 mg PO BEDTIME PRN PRN Reason: Constipation Thiamine HCl (Thiamine Hcl 100 Mg Tablet) 100 mg PO DAILY [facility] Last Admin: 06/01/23 11:38 Dose: 100 mg Tramadol HCl (Tramadol Hcl 50 Mg Tablet) 50 mg PO BID PRN PRN Reason: Pain, Moderate(Pain Scale 4-6) Last Admin: 06/01/23 14:24 Dose: 50 mg Allergies Allergies Allergy/AdvReac Type Severity Reaction Status Date / Time Sulfa (Sulfonamide Allergy Mild RASH Verified 05/30/23 20:20 Antibiotics) [SULFA (SULFONAMIDE ANTIBIOTICS)] amoxicillin [From Augmentin] AdvReac Intermediate Abdominal Verified 05/30/23 20:20 Pain clavulanic acid AdvReac Intermediate Abdominal Verified 05/30/23 20:20 [From Augmentin] Pain gabapentin AdvReac Intermediate Dizziness Verified 05/30/23 20:20 magnesium AdvReac Diarrhea Verified 05/30/23 20:20 Assessment & Plan Assessment & Plan (1) Alcohol use disorder, severe, dependence: Status: Acute Code(s): F10.20 - Alcohol dependence, uncomplicated Assessment and Plan: * provided resources including PHP and IOP facilities * will check in prior to discharge Total time managing care of this patient today _35___ minutes. PMFSH Past Medical History Medical History Alcohol use disorder, severe, dependence Fracture of greater tuberosity of right humerus Closed fracture of greater tuberosity of right humerus Pancytopenia Alcohol withdrawal seizure Diverticulitis Pelvic abscess in female Anxiety Alcohol abuse Family History Family History Father Medical history unknown Mother Medical history unknown Paternal Grandfather Cancer Sister Epilepsy Daughter In good health Son In good health Other Substance use disorder Surgical History Surgical History No pertinent past surgical history Social History Social History Household Members: Significant Other Household Members Other:: boyfriend. Housing: House Do you presently have visiting nurse or other home services: No Unable to assess alcohol history related to: Refusing to respond Alcohol intake: current Alcohol intake frequency: 3 or more drinks per day Alcohol type: wine and hard liquor Comment: REFUSING ALARM Patient Tobacco Use Status: Never used Tobacco Tobacco use type: Cigarette Cigarettes Per Day: 4 e-Cigarette/Vaping Use: Never Used Second Hand Smoke Exposure: No Substance Use Type: Marijuana Advance Directives Date on File: 01/25/21 service: No Current occupational status: unemployed Current occupation: right hand dominant Cognitive needs: No Hearing needs: No Vision needs: No
[2023-06-01 15:55] VITALS: BP 121/85; PULSE 108; RESP 20; TEMP 36.2; O2SAT 97
[2023-06-01 20:00] VITALS: BP 131/79; PULSE 98; RESP 18; TEMP 36.4; O2SAT 98
[2023-06-01] MEDS: Prazosin HCL 1 MG CAPSULE PO (21:37)
[2023-06-01] MEDS: cloNIDine HCL 0.1 MG TABLET PO (21:38)
[2023-06-01] MEDS: hydrOXYzine HCL 25 MG TABLET PO (21:38)
[2023-06-01] MEDS: NaPROXEN 500 MG TABLET PO (21:39)
[2023-06-02] VITALS (8 sets, daily range): BP systolic 85–108; BP diastolic 44–78; PULSE 75–113; RESP 17–20; TEMP 36.1–36.8; O2SAT 96–98
[2023-06-02] MEDS: Multivitamin TABLET 1 TAB PO (08:28)
[2023-06-02] MEDS: busPIRone HCl 10 MG TABLET PO ×2 (08:29→20:28)
[2023-06-02] MEDS: Folic Acid 1 MG TABLET PO (08:29)
[2023-06-02] MEDS: Enoxaparin Sodium 40 MG/0.4 ML SYRINGE SUBCUT (08:29)
[2023-06-02] MEDS: Thiamine HCL 100 MG TABLET PO (08:29)
--- NOTE | 2023-06-02 10:39 | HO.PM.IMPN ---
Subjective Subjective Date of Service: 06/02/23 Interval History: No acute complaints, noted to have soft blood pressure since last night denies lightheadedness, no dizziness, has been drinking eating without nausea vomiting or diarrhea, denies urinary symptoms no acute issues overnight. Review of Systems All other system reviewed and negative Physical Exam Vital Signs: Vital Signs: Last Vital Signs Temp 97.0 F 06/02/23 07:29 Pulse 80 06/02/23 07:29 Resp 17 06/02/23 07:29 BP 85/63 L 06/02/23 07:29 Pulse Ox 96 06/02/23 07:29 O2 Del Method Room Air 06/02/23 07:29 BMI result Body Mass Index 20.5 Const: Other: General awake aler t x3, resting comf ortably in no acut e distress. Neck supple no JVD. CV S regular rate rh ythm, Respiratory lungs clear to aus cultation, no resp iratory distress, no wheeze, no rhon chi. Gastrointesti nal abdomen soft, non tender, bowel sounds audible Ext remities no edema. Neuro non focal , no tremors Skin no rash Right knee , no redness, no s welling, no effusi on , good range of motion. Objective Data Active Medications Acetaminophen (Acetaminophen 325 Mg Tablet) 650 mg PO Q6H PRN PRN Reason: Pain, Mild (Pain Scale 1-3) Last Admin: 05/31/23 14:20 Dose: 650 mg Documented By: ROSE Buspirone HCl (Buspirone Hcl 10 Mg Tablet) 10 mg PO BID [facility] Last Admin: 06/02/23 08:29 Dose: 10 mg Documented By: BEV Clonidine HCl (Clonidine Hcl 0.1 Mg Tablet) 0.1 mg PO TID PRN; Protocol PRN Reason: Anxiety Last Admin: 06/01/23 21:38 Dose: 0.1 mg Documented By: SENA Enoxaparin Sodium (Enoxaparin Sodium 40 Mg/0.4 Ml Syringe) 40 mg SUBCUT Q24H [facility] Last Admin: 06/02/23 08:29 Dose: 40 mg Documented By: BEV Folic Acid (Folic Acid 1 Mg Tablet) 1 mg PO DAILY [facility] Last Admin: 06/02/23 08:29 Dose: 1 mg Documented By: BEV Hydroxyzine HCl (Hydroxyzine Hcl 25 Mg Tablet) 25 mg PO BEDTIME [facility] Last Admin: 06/01/23 21:38 Dose: 25 mg Documented By: SENA Lorazepam (Lorazepam 1 Mg Tablet) 2 mg PO RQ4H WHILE AWAKE PRN PRN Reason: Alcohol Withdrawal Last Admin: 05/31/23 05:50 Dose: 2 mg Documented By: LETICIA Meclizine HCl (Meclizine Hcl 12.5 Mg Tablet) 12.5 mg PO TID PRN PRN Reason: Dizziness Multivitamins/Vitamin C (Multivitamin Tablet) 1 tab PO DAILY [facility] Last Admin: 06/02/23 08:28 Dose: 1 tab Documented By: BEV Naproxen (Naproxen 500 Mg Tablet) 500 mg PO BID PRN PRN Reason: Pain (Scale Score 1-3) Last Admin: 06/01/23 21:39 Dose: 500 mg Documented By: SENA Patient Own ( Hyoscyamine Sulfate 0.125 Mg Tablet) 0.25 mg PO BID PRN PRN Reason: cramping Ondansetron HCl (Ondansetron Hcl 4 Mg/2 Ml Vial) 4 mg IVPUSH Q8H PRN PRN Reason: Nausea and Vomiting Pharmacy Consult (Consult Rx Etoh Phenob Im/Po) 1 each MISCELLANE ONCE PRN; Protocol PRN Reason: Consult order Phenobarbital (Phenobarbital 15 Mg Tablet) 15 mg PO BID [facility] Stop: 06/04/23 09:01 Phenobarbital (Phenobarbital 15 Mg Tablet) 15 mg PO DAILY [facility] Stop: 06/06/23 09:01 Prazosin HCl (Prazosin Hcl 1 Mg Capsule) 1 mg PO BEDTIME [facility]; Protocol Last Admin: 06/01/23 21:37 Dose: 1 mg Documented By: SENA Senna (Sennosides 8.6 Mg Tablet) 17.2 mg PO BEDTIME PRN PRN Reason: Constipation Thiamine HCl (Thiamine Hcl 100 Mg Tablet) 100 mg PO DAILY [facility] Last Admin: 06/02/23 08:29 Dose: 100 mg Documented By: BEV Tramadol HCl (Tramadol Hcl 50 Mg Tablet) 50 mg PO BID PRN PRN Reason: Pain, Moderate(Pain Scale 4-6) Last Admin: 06/01/23 14:24 Dose: 50 mg Documented By: DANNY Sethi 06/01/23 06:12 06/01/23 06:12 Assessment and Plan (1) Alcohol withdrawal: Status: Acute Plan 43-year-old female with history of alcohol use disorder, mood disorder, alcoholic fatty liver disease admitted for acute alcohol withdrawal with possible alcohol withdrawal seizure #Acute alcohol withdrawal with possible alcohol withdrawal seizure (period of unresponsiveness while in triage but no witnessed tonic-clonic seizure activity or jerking movements) Tachycardia resolved, no tremors -ethyl alcohol level on arrival 279 -on phenobarb protocol, thiamine and folic acid, monitor on CIWA q.4h. DC IV fluids -seizure precautions -seen by Addiction Team and they recommended IOP which patient has found helpful in the past. #acute hypotension likely due to phenobarb and prazosin, patient asymptomatic encourage by mouth fluids and follow BP closely, will decrease next dose of phenobarb, and consider IV fluid BP remains low. # sinus tachycardia -secondary to alcohol withdrawal, resolved # anxiety -continue home meds # right knee pain, good range of motion, asymmetry in both knees noted likely chronic. Recommend outpatient follow-up with PCP. DVT prophylaxis-Lovenox Full code Patient requires inpatient hospitalization given severe nature of acute alcohol withdrawal possible alcohol withdrawal seizure witnessed in triage who will require phenobarbital per protocol with close monitoring of progression of symptoms on CIWA which can not be safely or appropriately managed in outpatient setting. Acute hypotension need close clinical follow-up. Quality Stroke Does the patient have a stroke diagnosis?: No VTE Prior VTE?: No VTE Risk Level:: Medical - moderate - high VTE Device Contraindication: Treatment Not Indicated VTE Drug Contraindication: N/A - Med Ordered
[2023-06-02] MEDS: traMADoL HCL 50 MG TABLET PO (11:17)
--- NOTE | 2023-06-02 12:55 | MHC.CM.PN ---
EMR REVIEWED, PT W/ETOH WITHDRAWAL NOT YET READY FOR DC, CM MET W/PT TO GIVE HER APPT FOR PCP FOLLOW-UP W/YOHANNES QUIGLEY 06/07 AT 1PM, PT PROVIDED W/NUMBER FOR [facility] SHUTTLE IN CASE SHE NEEDS TRANSPORT, CM WILL CONT TO FOLLOW DC NEEDS.
[2023-06-02] MEDS: NaPROXEN 500 MG TABLET PO (17:35)
[2023-06-02] MEDS: hydrOXYzine HCL 25 MG TABLET PO (20:27)
[2023-06-02] MEDS: PHENobarbitaL 15 MG TABLET PO (20:28)
[2023-06-02] MEDS: Prazosin HCL 1 MG CAPSULE PO (20:29)
[2023-06-02] MEDS: Acetaminophen 325 MG TABLET 650 MG PO (20:30)
[2023-06-03] VITALS: BP 114/72; PULSE 66; RESP 20; TEMP 36.1; O2SAT 96
[2023-06-03 04:00] VITALS: BP 95/66; PULSE 72; RESP 20; TEMP 36.1; O2SAT 98
[2023-06-03 07:38] VITALS: BP 94/64; PULSE 113; RESP 20; TEMP 36.9; O2SAT 97
[2023-06-03] MEDS: busPIRone HCl 10 MG TABLET PO (08:44)
[2023-06-03] MEDS: Multivitamin TABLET 1 TAB PO (08:44)
[2023-06-03] MEDS: ondansetron HCL 4 MG/2 ML VIAL IVPUSH (08:44)
[2023-06-03] MEDS: Folic Acid 1 MG TABLET PO (08:44)
[2023-06-03] MEDS: Enoxaparin Sodium 40 MG/0.4 ML SYRINGE SUBCUT (08:45)
[2023-06-03] MEDS: PHENobarbitaL 15 MG TABLET PO (08:45)
[2023-06-03] MEDS: Thiamine HCL 100 MG TABLET PO (08:45)
[2023-06-03] MEDS: traMADoL HCL 50 MG TABLET PO (08:45)
[2023-06-03 11:32] VITALS: BP 110/81; PULSE 102; RESP 18; TEMP 36.7; O2SAT 97
[2023-06-03] MEDS: cloNIDine HCL 0.1 MG TABLET PO (11:38)
--- NOTE | 2023-06-03 12:54 | HO.PM.IMPN ---
Subjective Subjective Date of Service: 06/03/23 Interval History: Not feeling well this morning complaining of nausea and was sweaty last night, blood pressure soft but stable patient denies lightheadedness or dizziness has been ambulating to bathroom with no issues. Review of Systems All other system reviewed and negative Physical Exam Vital Signs: Vital Signs: Last Vital Signs Temp 98.1 F 06/03/23 11:32 Pulse 102 H 06/03/23 11:32 Resp 18 06/03/23 11:32 BP 110/81 06/03/23 11:32 Pulse Ox 97 06/03/23 11:32 O2 Del Method Room Air 06/03/23 11:32 BMI result Body Mass Index 20.5 Const: Other: General awake alert x3, resting comfortably in no acute distress. Neck supple no JVD. CVS regular rate rhythm, Respiratory lungs clear to auscultation, no respiratory distress, no wheeze, no rhonchi. Gastrointestinal abdomen soft, non tender, bowel sounds audible Extremities no edema. Neuro non focal , no tremors Skin no rash Objective Data Active Medications Acetaminophen (Acetaminophen 325 Mg Tablet) 650 mg PO Q6H PRN PRN Reason: Pain, Mild (Pain Scale 1-3) Last Admin: 06/02/23 20:30 Dose: 650 mg Documented By: AUGIE Buspirone HCl (Buspirone Hcl 10 Mg Tablet) 10 mg PO BID [facility] Last Admin: 06/03/23 08:44 Dose: 10 mg Documented By: BEV Clonidine HCl (Clonidine Hcl 0.1 Mg Tablet) 0.1 mg PO TID PRN; Protocol PRN Reason: Anxiety Last Admin: 06/03/23 11:38 Dose: 0.1 mg Documented By: BEV Enoxaparin Sodium (Enoxaparin Sodium 40 Mg/0.4 Ml Syringe) 40 mg SUBCUT Q24H [facility] Last Admin: 06/03/23 08:45 Dose: 40 mg Documented By: BVE Folic Acid (Folic Acid 1 Mg Tablet) 1 mg PO DAILY [facility] Last Admin: 06/03/23 08:44 Dose: 1 mg Documented By: BEV Hydroxyzine HCl (Hydroxyzine Hcl 25 Mg Tablet) 25 mg PO BEDTIME [facility] Last Admin: 06/02/23 20:27 Dose: 25 mg Documented By: AUGIE Lorazepam (Lorazepam 1 Mg Tablet) 2 mg PO RQ4H WHILE AWAKE PRN PRN Reason: Alcohol Withdrawal Last Admin: 05/31/23 05:50 Dose: 2 mg Documented By: LETICIA Meclizine HCl (Meclizine Hcl 12.5 Mg Tablet) 12.5 mg PO TID PRN PRN Reason: Dizziness Multivitamins/Vitamin C (Multivitamin Tablet) 1 tab PO DAILY [facility] Last Admin: 06/03/23 08:44 Dose: 1 tab Documented By: BEV Naproxen (Naproxen 500 Mg Tablet) 500 mg PO BID PRN PRN Reason: Pain (Scale Score 1-3) Last Admin: 06/02/23 17:35 Dose: 500 mg Documented By: BEV Patient Own ( Hyoscyamine Sulfate 0.125 Mg Tablet) 0.25 mg PO BID PRN PRN Reason: cramping Ondansetron HCl (Ondansetron Hcl 4 Mg/2 Ml Vial) 4 mg IVPUSH Q8H PRN PRN Reason: Nausea and Vomiting Last Admin: 06/03/23 08:44 Dose: 4 mg Documented By: BEV Pharmacy Consult (Consult Rx Etoh Phenob Im/Po) 1 each MISCELLANE ONCE PRN; Protocol PRN Reason: Consult order Phenobarbital (Phenobarbital 15 Mg Tablet) 15 mg PO BID [facility] Stop: 06/04/23 09:01 Last Admin: 06/03/23 08:45 Dose: 15 mg Documented By: BEV Phenobarbital (Phenobarbital 15 Mg Tablet) 15 mg PO DAILY [facility] Stop: 06/06/23 09:01 Prazosin HCl (Prazosin Hcl 1 Mg Capsule) 1 mg PO BEDTIME [facility]; Protocol Last Admin: 06/02/23 20:29 Dose: 1 mg Documented By: AUGIE Senna (Sennosides 8.6 Mg Tablet) 17.2 mg PO BEDTIME PRN PRN Reason: Constipation Thiamine HCl (Thiamine Hcl 100 Mg Tablet) 100 mg PO DAILY [facility] Last Admin: 06/03/23 08:45 Dose: 100 mg Documented By: BEV Tramadol HCl (Tramadol Hcl 50 Mg Tablet) 50 mg PO BID PRN PRN Reason: Pain, Moderate(Pain Scale 4-6) Last Admin: 06/03/23 08:45 Dose: 50 mg Documented By: BEV Labs 06/01/23 06:12 06/01/23 06:12 Assessment and Plan (1) Alcohol withdrawal: Status: Acute Plan 43-year-old female with history of alcohol use disorder, mood disorder, alcoholic fatty liver disease admitted for acute alcohol withdrawal with possible alcohol withdrawal seizure #Acute alcohol withdrawal with possible alcohol withdrawal seizure (period of unresponsiveness while in triage but no witnessed tonic-clonic seizure activity or jerking movements) no tremors, mild tachycardia likely due to anxiety -ethyl alcohol level on arrival 279 -on phenobarb protocol, thiamine and folic acid, monitor on CIWA q.4h. -no seizure-like activity noted -seen by Addiction Team and they recommended IOP which patient has found helpful in the past. #acute hypotension resolved blood pressure improved and stable was likely due to phenobarb and prazosin, Encourage by mouth fluids # sinus tachycardia -secondary to alcohol withdrawal, and anxiety improving # anxiety -continue home meds # right knee pain, good range of motion, asymmetry in both knees noted likely chronic. Recommend outpatient follow-up with PCP. DVT prophylaxis-Lovenox Full code Patient requires inpatient hospitalization given severe nature of acute alcohol withdrawal possible alcohol withdrawal seizure witnessed in triage who will require phenobarbital per protocol with close monitoring of progression of symptoms on CIWA which can not be safely or appropriately managed in outpatient setting. hypotension need close clinical follow-up. Quality Stroke Does the patient have a stroke diagnosis?: No VTE Prior VTE?: No VTE Risk Level:: Medical - moderate - high VTE Device Contraindication: Treatment Not Indicated VTE Drug Contraindication: N/A - Med Ordered
[2023-06-03] MEDS: Acetaminophen 325 MG TABLET 650 MG PO (15:21)
[2023-06-03 15:31] VITALS: BP 119/83; PULSE 104; RESP 20; TEMP 36.5; O2SAT 98
[2023-06-03 19:06] VITALS: BP 118/72; PULSE 88; RESP 20; TEMP 36.2; O2SAT 100
--- NOTE | 2023-06-03 19:31 | P.DS_ITS ---
DS: Providers Provider Date of Service: 06/03/23 Date of admission: 05/31/23 07:51 Primary care physician: Ollie Pulliam PA-C Consults: 05/30/23 21:41 Consult to Care Team Stat Comment: Reason for consultation: etoh 05/31/23 07:51 Addiction Medicine Routine Consulting Provider: Addiction Covering Reason for consultation: etoh dependence, desires detox DS: Diagnosis Discharge Diagnosis (1) Alcohol withdrawal: Status: Acute DS: Summary Hospital Course Hospital Course: HPI: 43-year-old female with history of alcohol use disorder, mood disorder, alcoholic fatty liver disease presented to the ED earlier today following alcohol relapse. She states she had been sober for about 1 month and then about 2 days ago began drinking again. She denies any specific trigger. She does desire detox. She states she has been drinking about a pt of hard alcohol daily over the last 2 days, last drink was around 14:30 yesterday afternoon. She has been through rehab multiple times and had been following with outpatient services. She has also been following with the [facility] but has not been seen several weeks. Previously, she states she is never experienced an alcohol withdrawal seizure or DTs. However, there was reported to be possible seizure while patient was in triage. Reportedly became unresponsive for short time but no witnessed seizure activity and patient is not postictal but feels very anxious. Since arrival, patient has been tachycardic to 132 on admission, vital signs otherwise stable. There is mild leukocytosis of 11, platelets 577. Renal function and electrolyte levels normal. Total bilirubin 0.2, AST 41, ALT 30. Urinalysis unremarkable. U tox negative, ethyl alcohol level 279 at 20:00 last night. In the ED, has been given a total of 4 mg of lorazepam as well as 1 L IV NS. She is being started on phenobarbital per protocol will be admitted for further management of acute alcohol withdrawal. Currently she was reporting tremors, clamminess, headache, palpitations, and anxiety. Denies any confusion or hallucinations. Hospital course: Patient was admitted and initiated on phenobarb protocol. Was also initiated on thiamine and folic acid. Was seen by Addiction Team who recommended IOP which patient has found helpful in the past. Patient without signs or symptoms of withdrawal prior to discharge. She is hemodynamically stable to be discharged with close follow-up with PCP Status at Discharge Functional status at discharge: independent ambulation Overall status at discharge: patient is back to baseline Time Attestation Discharge Coordination Time (in mins): 20 Quality: Safe Use of Opioids Does Pt have an Active Cancer Diagnosis on the Problem List?: No Quality: Stroke Does the patient have a stroke diagnosis?: No Physical Exam Vital Signs: Vital Signs: Last Vital Signs Temp 97.1 F 06/03/23 19:06 Pulse 88 06/03/23 19:06 Resp 20 06/03/23 19:06 BP 118/72 06/03/23 19:06 Pulse Ox 100 06/03/23 19:06 O2 Del Method Room Air 06/03/23 19:06 BMI result Body Mass Index 20.5 General awake alert x3, resting comfortably in no acute distress. Neck supple no JVD. CVS regular rate rhythm, Respiratory lungs clear to auscultation, no respiratory distress, no wheeze, no rhonchi. Gastrointestinal abdomen soft, non tender, bowel sounds audible Extremities no edema. Neuro non focal , no tremors Skin no rash DS: Data Data Completed and Pending Completed studies during hospitalization [Text1]: Procedures Detoxification Services for Substance Abuse Treatment (04/09/23) Transfusion of Nonautologous Platelets into Peripheral Vein, Percutaneous Approach (12/07/22) Discharge Plan Discharge Anticipated Discharge Date/Time: 06/03/23 19:28 Patient Disposition: Home, Self-Care Discharge Diagnosis: Alcohol use disorder Referrals: Ollie Pulliam PA-C [Primary Care Provider] - 06/08/23 1:00 pm (You have a appointment schedule. If you can not make this appointment call office to reschedule. ) Discharge Medications: Continued tramadol 50 mg tablet 50 mg PO BID PRN (Reason: pain) 4 Days Qty: 8 0RF buspirone 10 mg tablet 10 mg PO BID 90 Days Qty: 180 1RF clonidine HCl 0.1 mg tablet 0.1 mg PO TID PRN (Reason: Anxiety) thiamine HCl (vitamin B1) 100 mg Tablet 100 mg PO DAILY meclizine 12.5 mg tablet 12.5 mg PO TID PRN (Reason: Dizziness) naproxen 500 mg tablet 500 mg PO BID PRN (Reason: Pain (Scale Score 1-3)) hydroxyzine HCl 25 mg tablet 25 mg PO BEDTIME hyoscyamine sulfate 0.125 mg tablet 0.25 mg PO BID PRN (Reason: cramping) multivitamin Tablet 1 tab PO DAILY prazosin 1 mg capsule 1 mg PO BEDTIME Qty: 90 0RF acamprosate 333 mg tablet,delayed release (DR/EC) 666 mg PO TID Qty: 60 0RF celecoxib [Celebrex] 200 mg capsule 200 mg PO BID 30 Days Qty: 60 3RF Discharge Orders: Discharge Order (Routine); Ordered 06/03/23 Ordered By: Marta Manning Diet: Regular diet Activity on Discharge: As tolerated Stand Alone Forms: Patient Portal Discharge page Print Language: Grenadian Care Plan Goals: Follow-up with PCP within 1 week Addiction Team recommend IOP Health Concerns: Alcohol use disorder Plan of Treatment: Alcohol abstinence. Assessment: As above
== END 2023-06-03 21:31 | disposition home or self-care (01) | DRG 775 ==
LOC: HO.ED 05-31 07:24 → HO.EDOVER 05-31 07:56 → HO.IMC 06-01 00:23
PROVIDERS: Physician Assistant Medical; Admitting Provider Physician Assistant; Emergency Provider Internal Medicine; PCP Physician Assistant; Visit Provider Hospitalist
DX: F10.239 Alcohol dependence with withdrawal, unspecified (principal); F10.229 Alcohol dependence with intoxication, unspecified; R56.9 Unspecified convulsions; M25.561 Pain in right knee; G89.29 Other chronic pain; I95.2 Hypotension due to drugs; T42.3X5A Adverse effect of barbiturates, initial encounter; T44.6X5A Adverse effect of alpha-adrenoreceptor antagonists, initial encounter; K70.0 Alcoholic fatty liver; Y90.8 Blood alcohol level of 240 mg/100 ml or more; F41.9 Anxiety disorder, unspecified; Z79.899 Other long term (current) drug therapy
CPT/HCPCS: 36415; 80048; 80053; 80307; 81003; 81025; 83690; 83735; 84702; 85025; 99285; J1650; J2060; J2405; J2560; J3411

== ENCOUNTER → 2023-05-31 07:51 | Outpatient (BNV) | payer OTHER, SELFPAY | PROVIDERS: Admitting Provider Physician Assistant; Emergency Provider Internal Medicine; PCP Physician Assistant; Visit Provider Nurse Practitioner Psychiatric/Mental Health | DX: F10.20 Alcohol dependence, uncomplicated (principal) | CPT/HCPCS: 99222; 99232 ==

== ENCOUNTER → 2023-05-31 07:51 | Outpatient (BNV) | payer OTHER, SELFPAY | PROVIDERS: Admitting Provider Physician Assistant; Emergency Provider Internal Medicine; PCP Physician Assistant; Visit Provider Physician Assistant | DX: F10.939 Alcohol use, unspecified with withdrawal, unspecified (principal) | CPT/HCPCS: 99223; 99232; 99233; 99238; 99499 ==

== ENCOUNTER 2023-07-20 09:32 | Outpatient (AMB) | payer OTHER, SELFPAY ==
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
[2023-07-20 10:20] VITALS: BP 116/80; PULSE 72; O2SAT 100; BMI 20.6
== END 2023-07-20 11:08 | disposition home or self-care (01) ==
PROVIDERS: PCP Physician Assistant; Visit Provider Physician Assistant
DX: M54.16 Radiculopathy, lumbar region (principal); F10.20 Alcohol dependence, uncomplicated; F33.1 Major depressive disorder, recurrent, moderate
CPT/HCPCS: 99214; G2211

== ENCOUNTER 2023-07-26 10:22 | Outpatient (REF) | payer OTHER, SELFPAY ==
[2023-07-26 11:03] LABS: Hematocrit 37.3 % (37.0-47.0); Hemoglobin 12.1 g/dl (12.0-16.0); Mean Corpuscular HGB Conc 32.4 g/dl (31.0-35.0); Mean Corpuscular Hemoglobin 27.8 pg (27.0-33.0); Mean Corpuscular Volume 85.6 fL (80.0-98.0); Mean Platelet Volume 10.7 fL (9.4-12.3); Platelet Count 333 X10*3/uL (160-400); Red Blood Count 4.36 X10*6/uL (4.20-5.50); White Blood Count 7.4 X10*3/uL (4.8-10.8)
[2023-07-26 11:43] LABS: Alanine Aminotransferase 40 U/L (0-31); Albumin Level 4.4 g/dL (3.5-5.0); Alkaline Phosphatase 63 U/L (39-117); Anion Gap 15 (12-20); Aspartate Amino Transferase 48 U/L (5-31); Bilirubin Total 0.3 mg/dL (0.0-1.0); Blood Urea Nitrogen 7 mg/dL (9-16); Carbon Dioxide 20 mmol/L (22-29); Chloride 107 mmol/L (96-108); Estimated Glomerular Filt Rate > 60; Glucose Fasting 85 mg/dL (60-99); Potassium 3.8 mmol/L (3.3-5.1); Sodium 138 mmol/L (135-145); Total Protein 7.6 g/dL (6.5-8.0)
[2023-07-31 11:02] LABS: Alcohol, Ethyl Urine Screen NEGATIVE
== END 2023-07-26 10:23 | disposition home or self-care (01) ==
LOC: HO.LAB 10:22
PROVIDERS: PCP Physician Assistant; Visit Provider Physician Assistant
DX: K90.0 Celiac disease (principal); F10.20 Alcohol dependence, uncomplicated
CPT/HCPCS: 80053; 80307; 85027

== ENCOUNTER 2023-08-09 09:51 | Outpatient (AMB) | payer OTHER, SELFPAY ==
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
[2023-08-09 10:10] VITALS: BP 120/78; PULSE 102; O2SAT 100; BMI 21.1
== END 2023-08-09 10:45 | disposition home or self-care (01) ==
PROVIDERS: PCP Physician Assistant; Visit Provider Physician Assistant
DX: M54.16 Radiculopathy, lumbar region (principal); F33.1 Major depressive disorder, recurrent, moderate; F10.20 Alcohol dependence, uncomplicated; H90.42 Sensorineural hearing loss, unilateral, left ear, with unrestricted hearing on the contralateral side
CPT/HCPCS: 99214

== ENCOUNTER 2023-09-14 10:29 | Outpatient (AMB) | payer OTHER, SELFPAY ==
--- NOTE | 2023-09-14 11:37 | MHC.PC.OV ---
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 Accompanied by: Self / Same As Patient Allergies Sulfa (Sulfonamide Antibiotics) [SULFA (SULFONAMIDE ANTIBIOTICS)] Allergy (Mild, Verified 09/14/23 12:04) RASH amoxicillin [From Augmentin] Adverse Reaction (Intermediate, Verified 09/14/23 12:04) Abdominal Pain citalopram [From Celexa] Adverse Reaction (Intermediate, Verified 09/14/23 12:04) Agitated clavulanic acid [From Augmentin] Adverse Reaction (Intermediate, Verified 09/14/23 12:04) Abdominal Pain gabapentin Adverse Reaction (Intermediate, Verified 09/14/23 12:04) Dizziness prazosin Adverse Reaction (Intermediate, Verified 09/14/23 12:04) Insomnia magnesium Adverse Reaction (Verified 09/14/23 12:04) Diarrhea Medication List - Last Reconciled 09/14/23 by Ollie Pulliam PA-C acamprosate 666 mg (2 x 333 mg) PO BID baclofen 10 mg PO DAILY 30 days buspirone 10 mg PO BID 90 days celecoxib (Celebrex) 200 mg PO BID 30 days clonidine HCl 0.1 mg PO TID 30 days food supplemt, lactose-reduced (Ensure High Protein oral liquid) 1 ea PO BID PRN 15 days hydroxyzine HCl 25 mg PO BEDTIME 90 days hyoscyamine sulfate 0.25 mg (2 x 0.125 mg) PO BID PRN 14 days multivitamin 1 tab PO DAILY sertraline 25 mg PO DAILY thiamine HCl (vitamin B1) 100 mg PO DAILY 90 days tramadol 25 mg (1/2 x 50 mg) PO BID 7 days Tobacco use date assessed: 03/29/23 Dental Screening Dental Screen Date: 03/29/23 HPI f/u labs and sobriety HPI Details Patient is a 43-year-old female here today for a follow-up visit. She continues on sober living and now in [facility]. She continues to stay sober and now is over 3 months sober. She has establish care with addiction been center and continues on Campral. Lower lumbar spine pain: Has been better lately. Now off of tramadol and only using baclofen. She does report having some left hip pain and crepitus with certain ranges of motion. .. Depression: Has been much better since changing her living situation. She continues with SSRI (sertraline 25 mg) therapy that has been effective for her. PFSH Medical History Pancolitis Alcohol withdrawal Alcohol intoxication Alcohol use disorder, severe, dependence Fracture of greater tuberosity of right humerus Closed fracture of greater tuberosity of right humerus Pancytopenia Alcohol withdrawal seizure Diverticulitis Pelvic abscess in female Anxiety Alcohol abuse Surgical History No pertinent past surgical history Family History Father Medical history unknown Mother Medical history unknown Paternal Grandfather Cancer Sister Epilepsy Daughter In good health Son In good health Other Substance use disorder Social History Household Members: Significant Other Household Members Other:: boyfriend. Housing: House Do you presently have visiting nurse or other home services: No Unable to assess alcohol history related to: Refusing to respond Alcohol intake: current Alcohol intake frequency: 3 or more drinks per day Alcohol type: wine and hard liquor Comment: REFUSING ALARM Patient Tobacco Use Status: Never used Tobacco Tobacco use type: Cigarette Cigarettes Per Day: 4 e-Cigarette/Vaping Use: Never Used Second Hand Smoke Exposure: No Substance Use Type: Marijuana Advance Directives Date on File: 01/25/21 service: No Current occupational status: unemployed Current occupation: right hand dominant Cognitive needs: No Hearing needs: No Vision needs: No Female Reproductive History Menstrual Age of Menarche: 11 Questionnaire Thrive Questionnaire Date Thrive assessed: 06/01/23 SENA-7 AMB Questionnaire SENA-7 Date SENA - 7 assessed: 03/29/23 Source: Developed by Drs. Aries Dawkins, Destiny Lomas, Guy Plata and colleagues, with an educational meño from [employer]. Review of Systems Const Denies headache(s) Eyes Denies loss of vision ENT Denies vertigo, Denies dizziness, Denies headache(s) and Denies sore throat Card Denies chest pain, Denies leg edema and Denies lightheadedness Resp Denies cough, Denies hemoptysis and Denies wheezing GI Denies abdominal pain, Denies melena, Denies constipation, Denies diarrhea and Denies vomiting Denies urinary frequency, Denies dysuria and Denies urinary urgency Musc Denies arthralgias, Denies joint swelling, Denies numbness and Denies tingling Neuro Denies Abnormal speech present, Denies behavioral changes, Denies vertigo, Denies dizziness, Denies headache(s), Denies loss of vision, Denies memory loss, Denies numbness and Denies tingling Psych Denies anxiety, Denies behavioral changes, Denies depression, Denies memory loss and Denies panic attacks Maxime/Lymph Denies easy bleeding and Denies easy bruising Aller/Immun Denies wheezing Physical exam (Primary Care) Vital Signs: Last Vital Signs Pulse 60 09/14/23 11:38 BP 90/52 L 09/14/23 11:38 Pulse Ox 98 09/14/23 11:38 Oxygen Delivery Method Room Air 09/14/23 11:38 BMI result Body Mass Index 21.2 Tobacco/Smoking Status: Tobacco use Status Tobacco use date assessed 03/29/23 09/14/23 11:40 Patient Tobacco Use Status Never used Tobacco 09/14/23 11:40 Tobacco use type Cigarette 09/14/23 11:40 e-Cigarette/Vaping Use Never Used 09/14/23 11:40 Thrive Assessment: Date of Thrive Assessment Date Thrive assessed 06/01/23 09/14/23 11:40 Const General: healthy appearing, no acute distress, alert and awake Nutritional Appearance: well nourished Orientation/consciousness: oriented to person, oriented to place and oriented to time [facility] Ears: TM's normal bilaterally General nose exam: Normal nasal mucous membranes and turbinates present Eyes Conjunctivae: conjunctivae normal Sclerae: sclerae normal Pupils: Equal, round and reactive pupils present Neck Neck: Yes no lymphadenopathy and Yes no JVD Thyroid: Thyroid normal Carotids: no bruits Resp Effort & Inspection: normal respiratory effort and not tachypneic Auscultation: no crackles, no rales, no rhonchi and no wheezes Cardio Rate: regular rate Rhythm: regular rhythm Heart sounds: no murmurs and normal S1 and S2 GI Palpation (GI): Soft to palpation, nontender, no hepatomegaly and no splenomegaly Auscultation: normal bowel sounds Skin General skin exam: no rashes or lesions noted and dry skin Neuro General: oriented to person, oriented to place and oriented to time Cranial nerves: Yes Equal, round and reactive pupils present Speech: No Abnormal speech present Gait exam (Neuro): Normal gait present Motor exam (neuro): no tremor noted Extrem Right upper extremity: full ROM Left upper extremity: full ROM Right lower extremity: full ROM; no edema Left lower extremity: full ROM; no edema Psych Mental Status: mental status grossly normal Speech and movement: Normal speech and movement present Affect: normal affect Attitude: cooperative Thought process: Normal thought process present Assessment and Plan Assessment & Plan (1) Depression: Code(s): F32.A - Depression, unspecified Qualifiers: Active/Remission status: currently active Depression Type: major depressive disorder Major depression episode severity: moderate Major depression recurrence: recurrent Qualified Code(s): F33.1 - Major depressive disorder, recurrent, moderate Plan: Depression is reported as much better. She continues on sertraline 25 mg with good effect. She does have a counselor now at her sober living house. (2) Alcohol use disorder, severe, dependence: Code(s): F10.20 - Alcohol dependence, uncomplicated Plan: Still in early remission-- > Now 3 month sober. Living in sober living in [place] at this time . (3) Lumbar radicular pain: Code(s): M54.16 - Radiculopathy, lumbar region Plan: has been beetter - using baclofen and Tylenol. Orders: Orders Comprehensive Met. Panel Today F10.20 - Alcohol dependence, uncomplicated Medications: Discontinued tramadol Discontinued Reason: Doctor's Order 25 mg (1/2 x 50 mg) PO BID 7 days 7 tabs 0RF pain S52.509A - Unspecified fracture of the lower end of unspecified radius, initial encounter for closed fracture Coding Level of Care Code Est Pt Level 3 (88696) Diagnoses Moderate episode of recurrent major depressive disorder F33.1 Active/Remission status: currently active Depression Type: major depressive disorder Major depression episode severity: moderate Major depression recurrence: recurrent Alcohol use disorder, severe, dependence F10.20 Lumbar radicular pain M54.16
[2023-09-14 11:38] VITALS: BP 90/52; PULSE 60; O2SAT 98; BMI 21.2
== END 2023-09-14 12:27 | disposition home or self-care (01) ==
PROVIDERS: PCP Physician Assistant; Visit Provider Physician Assistant
DX: F10.20 Alcohol dependence, uncomplicated (principal); F33.1 Major depressive disorder, recurrent, moderate; M54.16 Radiculopathy, lumbar region
CPT/HCPCS: 99213

== ENCOUNTER 2023-12-13 10:03 | Outpatient (AMB) | payer OTHER, SELFPAY ==
--- NOTE | 2023-12-13 10:17 | A.OFFPC_ITS ---
Vital Signs 12/13/23 10:18 Height 5 ft 3 in Weight 115 lb 4 oz BMI 20.4 BP 100/70 Blood Pressure Location Rt brachial Position Sitting Pulse 68 Pulse Source Pulse Oximeter Pulse Oximetry (%) 100 Oxygen Delivery Method Room Air Intake Visit Reasons: ANNUAL Intake Note: Patient is here today for a physical. 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: Not Required per policy Accompanied by: Self / Same As Patient Allergies Sulfa (Sulfonamide Antibiotics) [SULFA (SULFONAMIDE ANTIBIOTICS)] Allergy (Mild, Verified 12/13/23 10:40) RASH amoxicillin [From Augmentin] Adverse Reaction (Intermediate, Verified 12/13/23 10:40) Abdominal Pain citalopram [From Celexa] Adverse Reaction (Intermediate, Verified 12/13/23 10:40) Agitated clavulanic acid [From Augmentin] Adverse Reaction (Intermediate, Verified 12/13/23 10:40) Abdominal Pain gabapentin Adverse Reaction (Intermediate, Verified 12/13/23 10:40) Dizziness prazosin Adverse Reaction (Intermediate, Verified 12/13/23 10:40) Insomnia magnesium Adverse Reaction (Verified 12/13/23 10:40) Diarrhea Medication List - Last Reconciled 12/13/23 by Ollie Pulliam PA-C acamprosate 666 mg (2 x 333 mg) PO BID baclofen 10 mg PO DAILY 30 days buspirone 10 mg PO BID 90 days celecoxib (Celebrex) 200 mg PO BID 30 days clonidine HCl 0.1 mg PO TID 30 days food supplemt, lactose-reduced (Ensure High Protein oral liquid) 1 ea PO BID PRN 15 days hydroxyzine HCl 50 mg (2 x 25 mg) PO BEDTIME 90 days hyoscyamine sulfate 0.25 mg (2 x 0.125 mg) PO BID PRN 14 days multivitamin 1 tab PO DAILY sertraline 25 mg PO DAILY trazodone 25 mg (1/2 x 50 mg) PO BEDTIME 30 days Tobacco use date assessed: 12/13/23 Dental Screening Dental Screen Date: 03/29/23 HPI ANNUAL HPI Details Patient is a 43-year-old female here today for routine annual physical She continues on sober living and now in [facility]. She continues to stay sober and now is over 6 months sober. She has I part-time job at a local [employer] Unfortunately has not been able to receive Campral from the pharmacy did being pack order. She did have a bit of a withdrawal from this medication though is considering being off of this medication as she is now 6 month sober from alcohol Lower lumbar spine pain: Has been better lately. Now off of tramadol and only using baclofen. She does report having some left hip pain and crepitus with certain ranges of motion. .. Depression: Has been much better since changing her living situation. She continues with SSRI (sertraline 25 mg) therapy that has been effective for her. Colorectal cancer screening: Colonoscopy done with Dr. 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 CHEMICAL PROCESS OPERATOR - needs PAP Vaccines: Up-to-date with flu vaccine, needs up-to-date tetanus, up-to-date with flu PFSH Medical History Pancolitis Alcohol withdrawal Alcohol intoxication Alcohol use disorder, severe, dependence Fracture of greater tuberosity of right humerus Closed fracture of greater tuberosity of right humerus Pancytopenia Alcohol withdrawal seizure Diverticulitis Pelvic abscess in female Anxiety Alcohol abuse Surgical History No pertinent past surgical history Family History (Updated 12/13/23 @ 10:46 by Ollie Pulliam PA-C) Father Medical history unknown Mother Medical history unknown Hypothyroid Paternal Grandfather Cancer Sister Epilepsy Daughter In good health Son In good health Other Substance use disorder Social History (Updated 12/13/23 @ 10:47 by Ollie Pulliam PA-C) Household Members: Significant Other Household Members Other:: boyfriend. Housing: House Do you presently have visiting nurse or other home services: No Unable to assess alcohol history related to: Refusing to respond Alcohol intake: former Year quit: 2021 Comment: REFUSING ALARM Patient Tobacco Use Status: Current everyday Tobacco user Tobacco use type: Cigarette Cigarette Packs Per Day: 0.5 Cigarettes Per Day: 4 e-Cigarette/Vaping Use: Never Used Second Hand Smoke Exposure: No Substance Use Type: Marijuana Advance Directives Date on File: 01/25/21 service: No Current occupational status: employed Current occupation: [employer] Cognitive needs: No Hearing needs: No Vision needs: No Female Reproductive History Menstrual Age of Menarche: 11 Questionnaire PHQ-9 Over the last 2 weeks, how often have you been bothered by any of the following problems? 1. Little interest or pleasure in doing things: not at all 2. Feeling down, depressed, or hopeless: not at all 3. Trouble falling or staying asleep, or sleeping too much: more than half the days 4. Feeling tired or having little energy: several days 5. Poor appetite or overeating: not at all 6. Feeling bad about yourself - or that you are a failure or have let yourself or your family down: not at all 7. Trouble concentrating on things, such as reading the newspaper or watching television: not at all 8. Moving or speaking so slowly that other people could have noticed. Or the opposite - being so fidgety or restless that you have been moving around a lot more than usual: not at all 9. Thoughts that you would be better off or of hurting yourself in some way: not at all Total score: 3 Depression Screening Interpretation: Positive Depression Screening Follow-up: Existing condition Depression Screening Done: Yes 18672 - PHQ-9 Billing: Yes Source: Developed by Drs. Aries Dawkins, Destiny Lomas, Guy Plata and colleagues, with an educational meño from [employer]. Thrive Questionnaire Date Thrive assessed: 12/13/23 I am a: Patient What is your living situation today?: I have a steady place to live Within the past 12 months, did the food you bought not last and you didn't have the money to get more?: Sometimes True Within the past 12 months, did you worry whether your food would run out before you got money to buy more?: Often true Do you have trouble paying for medicines?: No Do you have trouble getting transportation to medical appointments?: No Do you have trouble paying your heating and electricity bill?: I choose not to answer this question Do you have trouble taking care of your child, family member or friend?: I choose not to answer this question Do you have trouble with day-to-day activities such as bathing, preparing meals, shopping, managing finances, etc.?: I choose not to answer this question Are you currently unemployed and looking for a job?: No Are you interested in more education?: No Please select the resources that you would like help with: None Currently or been in a relationship where the following occur: I choose not to answer THRIVE Score: 2 AUDIT C Alcohol Use Questionnaire (AUDIT-C) 1. How often do you have a drink containing alcohol?: Never Total Score: 0 SENA-7 AMB Questionnaire SENA-7 Date SENA - 7 assessed: 12/13/23 Feeling nervous, anxious, or on edge: 1 = Several days Not being able to stop or control worryin = Not at all Worrying too much about different things: 1 = Several days Trouble relaxin = Several days Being so restless that it is hard to sit still: 0 = Not at all Becoming easily annoyed or irritable: 1 = Several days Feeling afraid as if something awful might happen: 0 = Not at all Total SENA-7 score (0-4 normal; 5-9 mild; 10-14 moderate; 15-21 severe): 4 Source: Developed by Drs. Aries Dawkins, Destiny Lomas, Guy Plata and colleagues, with an educational meño from [employer]. SENA-7 Assessment Billing SENA-7 Assessment Tool: SENA-7 Assessment 54153 Physical exam (Primary Care) Vital Signs: Last Vital Signs Pulse 68 12/13/23 10:18 BP 100/70 12/13/23 10:18 Pulse Ox 100 12/13/23 10:18 Oxygen Delivery Method Room Air 12/13/23 10:18 BMI result Body Mass Index 20.4 Tobacco/Smoking Status: Tobacco use Status Tobacco use date assessed 12/13/23 12/13/23 10:23 Patient Tobacco Use Status Current everyday Tobacco 12/13/23 10:47 Tobacco use type Cigarette 12/13/23 10:47 e-Cigarette/Vaping Use Never Used 12/13/23 10:47 Are you ready to quit: No Tobacco cessation counseling provided: Yes Items discussed: Nicotine replacement Relapse Prevention: discussed the importance of a supportive environment, discussed negative mood or depression after quitting, weight gain after smoking is common and discussed dietary, exercise and/or lifestyle changes Number of minutes spent counselin CPT code: 66151 - 4-10 Minutes PHQ-9: PHQ-9 Score PHQ-9: Total score 3 12/13/23 10:42 Depression Screening Interpretation: Positive Depression Screening Follow-up: Existing condition Thrive Assessment: Date of Thrive Assessment Date Thrive assessed 12/13/23 12/13/23 10:23 Currently or been in a relationship where the following occur: I choose not to answer Office Procedures Flu Questionnaire Does the patient have a severe egg allergy?: No Does the patient have severe life threatening allergies?: No Does the patient have a fever or illness today?: No Has the patient ever had Guillain-Devon Syndrome?: No Has the patient ever had any past reaction to a flu shot?: No Immunizations Fluarix Triv [id number] (PF) 45 mcg (15 mcg x 3)/0.5 mL IM syringe Performing Provider: Ollie Pulliam PA-C [facility] Administered by: Amrita Oden LPN on 12/13/23 10:32 Dose Route Admin Location Dispensed Lot Number Expiration Date NDC Merchandise Handler 0.5 mL IM Left Deltoid 0.5 mL [id number] 08/19/24 [id number] artandseek VIS Given Date VIS Provided VIS Publication Date 12/13/23 Single Vaccine 20 Eligibility Eligibility Date Funding Source Not [facility] Eligible 12/13/23 Private Coding Level of Care Code Est Pt Prev Care 40-64y(41442) Diagnoses Annual physical exam Z00.00 Encounter for screening mammogram for malignant neoplasm of breast Z12.31 Breast cancer screening modality: mammogram Cervical cancer screening Z12.4 Tobacco dependence F17.200 Screening for diabetes mellitus (DM) Z13.1 Chronic fatigue R53.82 Fatigue type: chronic, unspecified Alcohol abuse F10.10 Additional Codes SENA-7 Assessment Billing - SENA-7 Assessment Tool: SENA-7 Assessment 00371 ([id number]) Vital Signs *Quality* - CPT code: 69223 - 4-10 Minutes ([id number]) Assessment & Plan Assessment & Plan (1) Annual physical exam: Code(s): Z00.00 - Encounter for general adult medical examination without abnormal findings Category: Medical Plan: As per HPI (2) Breast cancer screening: Code(s): Z12.39 - Encounter for other screening for malignant neoplasm of breast Category: Medical Qualifiers: Breast cancer screening modality: mammogram Qualified Code(s): Z12.31 - Encounter for screening mammogram for malignant neoplasm of breast Plan: Patient is due for screening mammogram- interested in doing her mammogram in [place] in [facility] (3) Cervical cancer screening: Code(s): Z12.4 - Encounter for screening for malignant neoplasm of cervix Category: Medical Plan: Patient is due for Pap screening (4) Tobacco dependence: Code(s): F17.200 - Nicotine dependence, unspecified, uncomplicated Category: Medical Plan: Patient admits to smoking about 6 cigarettes per day. She is not interested in nicotine replacement at this time (5) Screening for diabetes mellitus (DM): Code(s): Z13.1 - Encounter for screening for diabetes mellitus Category: Medical Plan: As per HPI (6) Fatigue: Code(s): R53.83 - Other fatigue Category: Medical Qualifiers: Fatigue type: chronic, unspecified Qualified Code(s): R53.82 - Chronic fatigue, unspecified Plan: Patient reports some chronic fatigue likely secondary to her depression. She is interested in getting her thyroid checked (7) Alcohol abuse: Code(s): F10.10 - Alcohol abuse, uncomplicated Category: Social Hx Plan: As per HPI patient living in sober living situation. She has been sober now for 6 months. Was on Campral though on back order from pharmacy. She feels he may be able to stay away from alcohol without medication and will try this. Orders: Orders Influenza [id number] Immunization 12/13/23 Z23 - Encounter for immunization MM screening mammo BI 12/13/23 Z12.31 - Encounter for screening mammogram for malignant neoplasm of breast, Z12.39 - Encounter for other screening for malignant neoplasm of breast TSH reflex Free T4 12/13/23 R53.83 - Other fatigue Complete Blood Count no Diff 12/13/23 K21.9 - Gastro-esophageal reflux disease without esophagitis Comprehensive Rison. 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
[2023-12-13 10:18] VITALS: BP 100/70; PULSE 68; O2SAT 100; BMI 20.4
== END 2023-12-13 11:10 | disposition home or self-care (01) ==
PROVIDERS: PCP Physician Assistant; Visit Provider Physician Assistant
DX: Z00.00 Encounter for general adult medical examination without abnormal findings (principal); Z12.31 Encounter for screening mammogram for malignant neoplasm of breast; F17.210 Nicotine dependence, cigarettes, uncomplicated; Z13.1 Encounter for screening for diabetes mellitus; R53.82 Chronic fatigue, unspecified; F10.10 Alcohol abuse, uncomplicated

== ENCOUNTER → 2023-12-13 10:03 | Outpatient (BNVA) | payer OTHER, SELFPAY | PROVIDERS: PCP Physician Assistant; Visit Provider Physician Assistant | DX: Z00.01 Encounter for general adult medical examination with abnormal findings (principal); R53.82 Chronic fatigue, unspecified; F10.10 Alcohol abuse, uncomplicated; F17.210 Nicotine dependence, cigarettes, uncomplicated; Z23 Encounter for immunization | CPT/HCPCS: 90471; 90656; 96127; 99396 ==

== ENCOUNTER 2024-02-13 11:03 | Outpatient (AMB) | payer OTHER, SELFPAY ==
[2024-02-13 11:20] VITALS: BP 100/62; BMI 20.9
--- NOTE | 2024-02-13 11:20 | A.OFFVIS_ITS ---
Vital Signs 02/13/24 11:20 Height 5 ft 3 in Weight 118 lb BMI 20.9 BP 100/62 Intake Visit Reasons: New patient Annual Nuclear Technologist Services: Nuclear Technologist Present Information Interpreted: clinical only Post Tensioning Ironworker: Post Tensioning Ironworker Present Allergies Sulfa (Sulfonamide Antibiotics) [SULFA (SULFONAMIDE ANTIBIOTICS)] Allergy (Mild, Verified 02/13/24 11:21) RASH amoxicillin [From Augmentin] Adverse Reaction (Intermediate, Verified 02/13/24 11:21) Abdominal Pain citalopram [From Celexa] Adverse Reaction (Intermediate, Verified 02/13/24 11:21) Agitated clavulanic acid [From Augmentin] Adverse Reaction (Intermediate, Verified 02/13/24 11:21) Abdominal Pain gabapentin Adverse Reaction (Intermediate, Verified 02/13/24 11:21) Dizziness prazosin Adverse Reaction (Intermediate, Verified 02/13/24 11:21) Insomnia magnesium Adverse Reaction (Verified 02/13/24 11:21) Diarrhea Medication List - Last Reconciled 02/13/24 by Khushi Nelson CNM acamprosate 666 mg (2 x 333 mg) PO BID baclofen 10 mg PO DAILY 30 days buspirone 10 mg PO BID 90 days celecoxib (Celebrex) 200 mg PO BID 30 days clonidine HCl 0.1 mg PO TID 30 days hydroxyzine HCl 50 mg (2 x 25 mg) PO BEDTIME 90 days hyoscyamine sulfate 0.25 mg (2 x 0.125 mg) PO BID PRN 14 days lidocaine 5% 1 patch topical DAILY 30 days loperamide 2 mg PO Q8H PRN 7 days multivitamin 1 tab PO DAILY sertraline 25 mg PO DAILY trazodone 25 mg (1/2 x 50 mg) PO BEDTIME 30 days Is last menstrual period known: Yes Last menstrual period: 02/01/24 HPI HPI New patient Annual: Details: 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 She does have a history of abnormal Pap she had a complicated medical history and details of which are in the 2021 visit. She had had a Mirena IUD for control and it was removed around had [facility] during hospitalization. She would like to get it again she has wanted to get 1 but every time she has her period she has not been able to get a ride from [place] where she is living in a sober house additionally she needs to be there to attend meetings which are mandatory and it is difficult to arrange on the day. Her last menstrual period was unusual it only lasted about 2 days. She generally gets. About once a month and she had return of menses about 6 months after the IUD was removed she would like to get it again but it has been hard to arrange as mentioned. 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 She says there is a [facility] in [place]. [facility] Medical History Pancolitis Alcohol withdrawal Alcohol intoxication Alcohol use disorder, severe, dependence Fracture of greater tuberosity of right humerus Closed fracture of greater tuberosity of right humerus Pancytopenia Alcohol withdrawal seizure Diverticulitis Pelvic abscess in female Anxiety Alcohol abuse Surgical History No pertinent past surgical history Family History Father Medical history unknown Mother Medical history unknown Hypothyroid Paternal Grandfather Cancer Sister Epilepsy Daughter In good health Son In good health Other Substance use disorder Social History Household Members: Significant Other Household Members Other:: boyfriend. 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)negative) History of abnormal pap smear: Yes ([email or web address]) Physical Exam Vital Signs: Last Vital Signs BP 100/62 02/13/24 11:20 BMI result Body Mass Index 20.9 Const General: healthy appearing, comfortable, no acute distress, well developed and alert Nutritional Appearance: average body habitus Orientation/consciousness: patient oriented x3 Limitations: no limitations HEENT Head: Yes normocephalic Neck Neck: Yes normal visual inspection Chest Chest palpation & inspection: normal inspection of the chest Breast/axilla inspection: normal inspection of the breasts and normal inspection of the axillae Breast/axilla palpation: normal palpation of the breasts and normal palpation of the axillae Resp Effort & Inspection: normal respiratory effort GI Inspection: Yes normal to inspection, No Abdominal wall edema and No distended Palpation (GI): Soft to palpation and nontender Other: Normal external exam vagina pink within normal limits slightly dry consistent with tali menopausal changes cervix multiparous pink smooth nabothian cysts visible at 01:00 o'clock cervix long close thick mobile nontender uterus midposition mobile nontender fair tone with Kegel. General: Yes bladder normal to palpation External Female Exam: normal external appearance and normal appearance of the urethra Speculum Exam - Vagina: normal appearance of the vagina, normal palpation and normal vaginal discharge Speculum Exam - Cervix: normal appearance of the cervix, normal palpation and nontender Bimanual exam- vagina & uterus: normal bimanual exam, normal palpation, uterine size normal, bladder normal to palpation, consistency normal, normal palpation, uterine mobility normal, uterine shape normal, No Cervical tenderness present, non-tender and no cervical motion tenderness Bimanual Exam- Adnexa, other: normal adnexae, no masses, normal and No adnexal tenderness Neuro General: patient oriented x3 Assessment & Plan Assessment & Plan (1) Cervical cancer screening: Code(s): Z12.4 - Encounter for screening for malignant neoplasm of cervix Category: Medical (2) Women's annual routine gynecological examination: Code(s): Z01.419 - Encounter for gynecological examination (general) (routine) without abnormal findings Category: Medical (3) Counseling for control, intrauterine device: Code(s): Z30.09 - Encounter for other general counseling and advice on contraception Category: Medical (4) Perimenopause: Code(s): N95.1 - Menopausal and female climacteric states Category: Medical (5) Encounter for screening examination for sexually transmitted disease: Code(s): Z11.3 - Encounter for screening for infections with a predominantly sexual mode of transmission Category: Medical Plan -----Discussed in this visit the following: healthy balanced diet, regular and consistent exercise, getting recommended health screens, doing the best she can for her particular health concerns, kegel exercises, pap smear screening and followup recommendations, mammography screening and SBE, normal changes in cycles in her life stage--- .pap smear done. testing for gc/ chlamydia/ trich/ bv/ yeast doen. and testing ordered for hiv/ hep B/ hep C/ syphilis. I printed the orders for her so she can get the labs done up at [facility] and additionally we printed her mammogram order from [facility] so that she can possibly get the mammogram done up there as well. Since it has been too difficult to get here when she has a period. And arrange an appointment at the right time it might be easier for her to arrange and try to get a Mirena by checking out the [facility] facility in [place] I recommend she call them and check out what can be done there she is on the portal so she will be able to share her labs and Pap records. I did explain my rationale for why I insert a Mirena with menses if somebody is menstruating however, that may not be everyone's policy but it would easier to be arranged in the same city she lives in. Also discussed tali menopausal changes such as vaginal dryness etc.. Discussed her concerns about communicable diseases and she is employing careful self-care techniques in her living situation. Orders: Orders Bacterial Vaginosis Panel Today N89.8 - Other specified noninflammatory disorders of vagina Pap Smear Today Z01.419 - Encounter for gynecological examination (general) (routine) without abnormal findings Hepatitis B Surface Antigen Today N95.1 - Menopausal and female climacteric states, Z01.419 - Encounter for gynecological examination (general) (routine) without abnormal findings, Z11.3 - Encounter for screening for infections with a predominantly sexual mode of transmission, Z12.4 - Encounter for screening for malignant neoplasm of cervix, Z30.09 - Encounter for other general counseling and advice on contraception HIV Ab/Ag Today N95.1 - Menopausal and female climacteric states, Z01.419 - Encounter for gynecological examination (general) (routine) without abnormal findings, Z11.3 - Encounter for screening for infections with a predominantly sexual mode of transmission, Z12.4 - Encounter for screening for malignant neoplasm of cervix, Z30.09 - Encounter for other general counseling and advice on contraception Syphilis Screen Today N95.1 - Menopausal and female climacteric states, Z01.419 - Encounter for gynecological examination (general) (routine) without abnormal findings, Z11.3 - Encounter for screening for infections with a predominantly sexual mode of transmission, Z12.4 - Encounter for screening for malignant neoplasm of cervix, Z30.09 - Encounter for other general counseling and advice on contraception CT NG by PCR Today N89.8 - Other specified noninflammatory disorders of vagina Hepatitis C Antibody Today N95.1 - Menopausal and female climacteric states, Z01.419 - Encounter for gynecological examination (general) (routine) without abnormal findings, Z11.3 - Encounter for screening for infections with a predominantly sexual mode of transmission, Z12.4 - Encounter for screening for malignant neoplasm of cervix, Z30.09 - Encounter for other general counseling and advice on contraception Coding Level of Care Code New Pt Prev Care 40-64y(74697) Diagnoses Cervical cancer screening Z12.4 Women's annual routine gynecological examination Z01.419 Counseling for control, intrauterine device Z30.09 Perimenopause N95.1 Encounter for screening examination for sexually transmitted disease Z11.3
== END 2024-02-13 12:34 | disposition home or self-care (01) ==
PROVIDERS: PCP Physician Assistant; Visit Provider Advanced Practice Midwife
DX: Z01.419 Encounter for gynecological examination (general) (routine) without abnormal findings (principal); N95.1 Menopausal and female climacteric states
CPT/HCPCS: 99396; 99459

== ENCOUNTER 2024-02-13 11:03 | Outpatient (REF) | payer OTHER, SELFPAY ==
[2024-02-13 18:23] LABS: Bacterial Vaginosis PCR NEGATIVE (Negative); Candida Group PCR NOT DETECTED (Not Detect); Candida glab krusei PCR NOT DETECTED (Not Detect); Trichomonas vaginalis PCR NOT DETECTED (Not Detect)
[2024-02-13 18:54] LABS: CT PCR NOT DETECTED (Not Detect.); NG PCR NOT DETECTED (Not Detect.)
== END 2024-02-13 11:04 | disposition home or self-care (01) ==
LOC: HO.LAB 11:03
PROVIDERS: PCP Physician Assistant; Visit Provider Advanced Practice Midwife
DX: Z01.419 Encounter for gynecological examination (general) (routine) without abnormal findings (principal); N89.8 Other specified noninflammatory disorders of vagina; N95.1 Menopausal and female climacteric states
CPT/HCPCS: 0352U; 87491; 87591; 99396; 99459

== ENCOUNTER 2024-02-13 12:22 | Outpatient (REF) | payer OTHER, SELFPAY ==
[2024-02-15 06:40] LABS: HPV 16,18/45 See PAP report
== END 2024-02-13 12:23 | disposition home or self-care (01) ==
LOC: HO.LNP 12:22
PROVIDERS: Visit Provider Advanced Practice Midwife
DX: Z01.419 Encounter for gynecological examination (general) (routine) without abnormal findings (principal)
CPT/HCPCS: 87624; 88175

== ENCOUNTER 2024-04-09 15:11 | Outpatient (REF) | payer OTHER, SELFPAY ==
--- OUTSIDE RECORDS SUMMARY | 2024-04-09 16:07 | XMS_ITS | Patient Health Record ---
Author Organization [facility] Address [address] [place] [id number] Care Team Providers Care Mate Relief Name Role Phone Ollie Pulliam Primary Care Provider Mark Tobias Jr Unavailable ALLERGIES Allergen (clinical drug ingredient) Drug/Non Drug Allergy documented on EMR Reaction Allergy Type Onset Date Status Substance with sulfonamide structure and antibacterial mechanism of action (substance) Sulfa Antibiotics Unknown Drug Allergy Active clavulanic acid Clavulanic Acid Unknown Drug Allergy Active amoxicillin Amoxicillin Unknown Drug Allergy Act antonio Magnesium 27 Unknown Drug Allergy Acti ve REASON FOR REFERRAL No Information MEDICATIONS Medication SIG (Take, Route, Frequency, Duration) Notes Start Date End Date Status Vitamin D-3 125 MCG (5000 UT) as directed Orally Active Dicyclomine HCl 10 MG Oral for 30 Active Vitamin B-1 100 MG 1 tablet Orally Once a day for 30 day(s) Active Vitamin B 12 100 MCG as directed Orally Active traMADol HCl 50 MG Oral for 7 Active Gabapentin 300 MG Oral for 30 Active Acetaminophen ER 650 MG Oral for 30 Active hydrOXYzine HCl 25 MG Oral for 30 Active Omeprazole 20 MG Oral for 30 A ctive Magnesium Oxide 400 MG Oral for 30 Active Folic Acid 1 MG 1 tablet Orally Once a day for 30 day(s) Active Sertraline HCl 25 MG Oral for 30 Active Magnesium 300 MG 1 capsule with a deacon l Orally Once a day for 30 day(s) Active Thiamine HCl 100 MG Oral for 30 Active IMMUNIZATIONS Vaccine Route Administration Date Status Comme nts Influenza Unknown 12/22/2021 Administered SOCIAL HISTORY Tobacco Use: Social History Observation Description Date Details (start date - stop date) Never Smoker NA - NA Sex Assigned At : Social History Observation Description Sex Assigned At Unknown Tobacco Use/Smoking Question Answer Notes Patient is a nonsmoker Alcohol Screen Question Answer Notes Did you have a drink containing alcohol in the p ast year? No Points 0 Interpretation Negative PROBLEMS Problem Type ICD Code Onset Dates Problem Status W/U Status Risk SNOMED Code Notes Problem Alcoholic hepatitis (K70.10) Active confirmed Alcoholic hepatitis (755254910) Problem Fatty liver (K76.0) Active confirmed Fatty liver (721363044) Problem Diverticulitis of colon (K57.32) Active confirmed Diverticuliti s of colon (511129044) Problem Dysphagia, unspecified type (R13.10) Active confirmed 37416601 Problem Celiac disease (K90.0) Active confirmed 668028593 Problem Diverticulitis of large intestine with abscess without bleeding (K57.20) Active confirmed 9671176 Problem Dysphagia (R13.10) Active confirmed Dysphagia (77259361) Problem Gastric intestinal metaplasia without dysplasia (K31.A19) Active confirmed 23909025 Problem Alcoholic liver disease (K70.9) Active confirmed Alcoholic li leatha disease (23612136) PLAN OF TREATMENT Future Test Test Name Order Date UPPER GI ENDOSCOPY 01/12/2022 COLONOSCOPY 01/12/2022 Insurance Providers Payer Name Payer Address Payer Phone Subscriber Number Group Number Insured Name Patient Relationship to Insured Coverage Start Date Coverage End Date [facility] [address] [address] [place], [place] [id number] BRICE RUTHERFORD Self - patient is the insured MEDICAL (GENERAL) HISTORY Medical History History ICD Code Alcoholic hepatitis Diverticulitis with abscess requiring dr rdz Celiac disease Surgical History Surgery Date(Month/Year) Hospitalization History Reason Date(Month/Year) diverticulitis with abscess and a;cohol abuse 2021
--- NOTE | 2024-04-09 16:46 | MHC.AU.MED ---
Medical Clearance for Hearing Instrumentation Date: 04/09/24 Patient Name: Susan Vanessa Date of : 1980 Primary Care Provider: Ollie Pulliam PA-C We have seen your patient on 04/09/24 and have determined that they are a candidate for amplification (See accompanying report). Specifically, they would benefit from: Hearing aid use in both ears There is a statute that addresses Medical Evaluation Requirements prior to fitting a patient with a hearing aid. According to [place] statute 265 CMR:6.03(1), (a) General. Except as provided in 265 CMR 6.03(1)(b), a refinery operator vapor recovery unit shall not sell a hearing aid unless the prospective user has presented to the refinery operator vapor recovery unit a written statement signed by a licensed physician that states that the patient's hearing loss has been medically evaluated and the patient may be considered a candidate for a hearing aid. The medical evaluation must have taken place within the preceding six months. Please note: Due to the [place] Statute referenced above, we cannot accept a signature other than that of a licensed physician. DEFENCE FORCE SENIOR OFFICER and PA signatures cannot be accepted. I am in agreement with the above recommendation. There is no medical contraindication for hearing instrumentation. Physician Signature Date Physician Name (Printed)
--- NOTE | 2024-04-11 08:15 | MHC.AU.HA1 ---
Hearing Aid Evaluation Date of Visit: 04/09/24 Historical Information: Description of Hearing: Within normal sloping to mild sensorineural hearing loss rising to normal hearing, bilaterally Summary: Noticed gradual change in left ear 2-3 years ago. More recently noticed same change in right ear and now experiencing increased hearing difficulties. Speech sounds muffled, especially in adverse listening environments. Works at [employer], noted difficulty understanding customers. Expected to have some degree of hearing loss but not expecting to need HAs. Hesitant to move forward with amplification. Advised of trial period as well as acclimatization period and importance of daily, consistent use. Susan ultimately agreeable to trialing HAs. Opted for Oticon rechargeable RITE, preferred size/shape of Oticon Intent vs Phonak Infinio. Has Android but looking to purchase new iPhone. Hearing Aid Prescription: Based on the individual?s shared listening needs, communication environments, dexterity, desire for connectivity, and personal preferences, the following prescription for amplification has been made: Right ear: Make, Model, Color: Oticon Intent 2 miniRITE-R Color: Chroma Beige Battery Size: Rechargeable Paper Bag Inspector/Slim Tube: 1/85 Type of Earmold/Dome/CShell/SlimTip: 8mm double pressley dome Left ear: Left ear prescription to be same as Right Hearing Aid above: Make, Model, Color: Oticon Intent 2 miniRITE-R Color: Chroma Beige Battery Size: Rechargeable Paper Bag Inspector/Slim Tube: 1/85 Type of Earmold/Dome/CShell/SlimTip: 8mm double pressley dome Accessories/Assistive Technology: Volunteer Assistant Plan of Care: Patient wishes to purchase hearing aids as prescribed Action Taken/Action Needed: Medical Clearance to be requested from PCP/ENT. Hearing Instrument Fitting to be scheduled when materials arrive Primary Diagnosis: H90.3 Bilateral Sensorineural Hearing Loss Signature: Provider: Teo Cordero, [facility]
== END 2024-04-09 15:12 | disposition home or self-care (01) ==
LOC: HO.SH 15:11
PROVIDERS: Visit Provider Physician Assistant
DX: Z01.118 Encounter for examination of ears and hearing with other abnormal findings (principal); Z46.1 Encounter for fitting and adjustment of hearing aid; H90.5 Unspecified sensorineural hearing loss
CPT/HCPCS: 92557; 92567; 92591

== ENCOUNTER 2024-04-16 10:26 | Outpatient (AMB) | payer OTHER, SELFPAY ==
[2024-04-16 10:39] VITALS: BP 110/64; PULSE 70; O2SAT 99; BMI 20.1
--- NOTE | 2024-04-16 10:39 | MHC.PC.OV ---
Vital Signs 04/16/24 10:39 Height 5 ft 3 in Weight 113 lb 6 oz BMI 20.1 BP 110/64 Blood Pressure Location Lt brachial Position Sitting Pulse 70 Pulse Source Pulse Oximeter Pulse Oximetry (%) 99 Oxygen Delivery Method Room Air Intake Visit Reasons: f/u anxiety / alcohol recovery Marker Hand Required: No Accompanied by: Self / Same As Patient Allergies Sulfa (Sulfonamide Antibiotics) [SULFA (SULFONAMIDE ANTIBIOTICS)] Allergy (Mild, Verified 04/16/24 10:54) RASH amoxicillin [From Augmentin] Adverse Reaction (Intermediate, Verified 04/16/24 10:54) Abdominal Pain citalopram [From Celexa] Adverse Reaction (Intermediate, Verified 04/16/24 10:54) Agitated clavulanic acid [From Augmentin] Adverse Reaction (Intermediate, Verified 04/16/24 10:54) Abdominal Pain gabapentin Adverse Reaction (Intermediate, Verified 04/16/24 10:54) Dizziness prazosin Adverse Reaction (Intermediate, Verified 04/16/24 10:54) Insomnia magnesium Adverse Reaction (Verified 04/16/24 10:54) Diarrhea Medication List - Last Reconciled 04/16/24 by Ollie Pulliam PA-C baclofen 10 mg PO DAILY 30 days buspirone 10 mg PO BID 90 days celecoxib (Celebrex) 200 mg PO BID 30 days clonidine HCl 0.1 mg PO TID 30 days hydroxyzine HCl 50 mg (2 x 25 mg) PO BEDTIME 90 days hyoscyamine sulfate 0.25 mg (2 x 0.125 mg) PO BID PRN 14 days lidocaine 5% 1 patch topical DAILY 30 days loperamide 2 mg PO Q8H PRN 7 days multivitamin 1 tab PO DAILY sertraline 50 mg PO DAILY 30 days trazodone 25 mg (1/2 x 50 mg) PO BEDTIME 30 days Tobacco use date assessed: 04/16/24 Dental Screening Dental Screen Date: 04/16/24 Did you have a dental visit in the last 12 months?: No Did you have a dental problem in the last 6 months where you did not have access to dental care?: No Was dental information given to patient?: Patient has dentist HPI f/u anxiety / alcohol recovery HPI Details Patient is a 43-year-old female here today for follow-up visit. Patient has a history of alcohol use disorder, anxiety and depression. Recently had flu and viral gastroenteritis. She is slowly recovering from her infections. History of alcohol use disorder: She continues on sober living and now in [facility]. She has I part-time job at a local [employer] She is now nearly 10 month sober. She is considering getting her own apartment in near future. .. Depression/ anxiety: Has been much better since changing her living situation. She continues with SSRI (sertraline 25 mg) therapy that has been effective for her. [facility] Medical History Pancolitis Alcohol withdrawal Alcohol intoxication Alcohol use disorder, severe, dependence Fracture of greater tuberosity of right humerus Closed fracture of greater tuberosity of right humerus Pancytopenia Alcohol withdrawal seizure Diverticulitis Pelvic abscess in female Anxiety Alcohol abuse Surgical History No pertinent past surgical history Family History Father Medical history unknown Mother Medical history unknown Hypothyroid Paternal Grandfather Cancer Sister Epilepsy Daughter In good health Son In good health Other Substance use disorder Social History Household Members: Significant Other Household Members Other:: boyfriend. Housing: House Do you presently have visiting nurse or other home services: No Unable to assess alcohol history related to: Refusing to respond Alcohol intake: former Year quit: 2021 Comment: REFUSING ALARM Patient Tobacco Use Status: Current everyday Tobacco user Tobacco use type: Cigarette Cigarette Packs Per Day: 0.5 Cigarettes Per Day: 4 e-Cigarette/Vaping Use: Never Used Second Hand Smoke Exposure: No Substance Use Type: Marijuana Advance Directives Date on File: 01/25/21 service: No Current occupational status: employed Current occupation: [employer] Cognitive needs: No Hearing needs: No Vision needs: No Female Reproductive History Menstrual Age of Menarche: 9 Questionnaire PHQ-9 Over the last 2 weeks, how often have you been bothered by any of the following problems? 1. Little interest or pleasure in doing things: not at all 2. Feeling down, depressed, or hopeless: not at all 3. Trouble falling or staying asleep, or sleeping too much: more than half the days 4. Feeling tired or having little energy: several days 5. Poor appetite or overeating: not at all 6. Feeling bad about yourself - or that you are a failure or have let yourself or your family down: not at all 7. Trouble concentrating on things, such as reading the newspaper or watching television: not at all 8. Moving or speaking so slowly that other people could have noticed. Or the opposite - being so fidgety or restless that you have been moving around a lot more than usual: not at all 9. Thoughts that you would be better off or of hurting yourself in some way: not at all Total score: 3 Depression Screening Interpretation: Positive Depression Screening Follow-up: Existing condition Depression Screening Done: Yes 87045 - PHQ-9 Billing: Yes Source: Developed by Drs. Aries Dawkins, Destiny Lomas, Guy Plata and colleagues, with an educational meño from [id number]. Thrive Questionnaire Date Thrive assessed: 04/16/24 I am a: Patient What is your living situation today?: I have a steady place to live Within the past 12 months, did the food you bought not last and you didn't have the money to get more?: Sometimes True Within the past 12 months, did you worry whether your food would run out before you got money to buy more?: Often true Do you have trouble paying for medicines?: No Do you have trouble getting transportation to medical appointments?: No Do you have trouble paying your heating and electricity bill?: I choose not to answer this question Do you have trouble taking care of your child, family member or friend?: I choose not to answer this question Do you have trouble with day-to-day activities such as bathing, preparing meals, shopping, managing finances, etc.?: I choose not to answer this question Are you currently unemployed and looking for a job?: No Are you interested in more education?: No Please select the resources that you would like help with: None Currently or been in a relationship where the following occur: I choose not to answer THRIVE Score: 2 AUDIT C Alcohol Use Questionnaire (AUDIT-C) 1. How often do you have a drink containing alcohol?: Never 3. How often do you have six or more drinks on one occasion?: Never Total Score: 0 SENA-7 AMB Questionnaire SENA-7 Date SENA - 7 assessed: 04/16/24 Feeling nervous, anxious, or on edge: 1 = Several days Not being able to stop or control worryin = Not at all Worrying too much about different things: 1 = Several days Trouble relaxin = Several days Being so restless that it is hard to sit still: 0 = Not at all Becoming easily annoyed or irritable: 1 = Several days Feeling afraid as if something awful might happen: 0 = Not at all Total SENA-7 score (0-4 normal; 5-9 mild; 10-14 moderate; 15-21 severe): 4 Source: Developed by Drs. Aries Dawkins, Destiny Lomas, Guy Plata and colleagues, with an educational meño from [id number]. SENA-7 Assessment Billing SENA-7 Assessment Tool: SENA-7 Assessment 13388 Review of Systems Const Denies headache(s) Eyes Denies loss of vision ENT Denies vertigo, Denies dizziness, Denies headache(s) and Denies sore throat Card Denies chest pain, Denies leg edema and Denies lightheadedness Resp Denies cough, Denies hemoptysis and Denies wheezing GI Denies abdominal pain, Denies melena, Denies constipation, Denies diarrhea and Denies vomiting Denies urinary frequency, Denies dysuria and Denies urinary urgency Musc Denies arthralgias, Denies joint swelling, Denies numbness and Denies tingling Neuro Denies Abnormal speech present, Denies behavioral changes, Denies vertigo, Denies dizziness, Denies headache(s), Denies loss of vision, Denies memory loss, Denies numbness and Denies tingling Psych Denies anxiety, Denies behavioral changes, Denies depression, Denies memory loss and Denies panic attacks Maxime/Lymph Denies easy bleeding and Denies easy bruising Aller/Immun Denies wheezing Physical exam (Primary Care) Vital Signs: Last Vital Signs Pulse 70 04/16/24 10:39 BP 110/64 04/16/24 10:39 Pulse Ox 99 04/16/24 10:39 Oxygen Delivery Method Room Air 04/16/24 10:39 BMI result Body Mass Index 20.1 Tobacco/Smoking Status: Tobacco use Status Tobacco use date assessed 04/16/24 04/16/24 10:42 Patient Tobacco Use Status Current everyday Tobacco 04/16/24 10:42 Tobacco use type Cigarette 04/16/24 10:42 e-Cigarette/Vaping Use Never Used 04/16/24 10:42 PHQ-9: PHQ-9 Score PHQ-9: Total score 3 04/16/24 10:56 Depression Screening Interpretation: Positive Depression Screening Follow-up: Existing condition Thrive Assessment: Date of Thrive Assessment Date Thrive assessed 04/16/24 04/16/24 10:42 Currently or been in a relationship where the following occur: I choose not to answer Const General: healthy appearing, no acute distress, alert and awake Nutritional Appearance: well nourished Orientation/consciousness: oriented to person, oriented to place and oriented to time HENMT Ears: TM's normal bilaterally General nose exam: Normal nasal mucous membranes and turbinates present Eyes Conjunctivae: conjunctivae normal Sclerae: sclerae normal Pupils: Equal, round and reactive pupils present Neck Neck: Yes no lymphadenopathy and Yes no JVD Thyroid: Thyroid normal Carotids: no bruits Resp Effort & Inspection: normal respiratory effort and not tachypneic Auscultation: no crackles, no rales, no rhonchi and no wheezes Cardio Rate: regular rate Rhythm: regular rhythm Heart sounds: no murmurs and normal S1 and S2 GI Palpation (GI): Soft to palpation, nontender, no hepatomegaly and no splenomegaly Auscultation: normal bowel sounds Skin General skin exam: no rashes or lesions noted and dry skin Neuro General: oriented to person, oriented to place and oriented to time Cranial nerves: Yes Equal, round and reactive pupils present Speech: No Abnormal speech present Gait exam (Neuro): Normal gait present Motor exam (neuro): no tremor noted Extrem Right upper extremity: full ROM Left upper extremity: full ROM Right lower extremity: full ROM; no edema Left lower extremity: full ROM; no edema Psych Mental Status: mental status grossly normal Speech and movement: Normal speech and movement present Affect: normal affect Attitude: cooperative Thought process: Normal thought process present Coding Level of Care Code Est Pt Level 4 (28241) Diagnoses SENA (generalized anxiety disorder) F41.1 Primary insomnia F51.01 Insomnia type: primary Alcohol abuse F10.10 Additional Codes SENA-7 Assessment Billing - SENA-7 Assessment Tool: SENA-7 Assessment 89695 ([id number]) PHQ-9 - 52557 - PHQ-9 Billing: Yes ([id number]) Assessment & Plan Assessment & Plan (1) SENA (generalized anxiety disorder): Code(s): F41.1 - Generalized anxiety disorder Category: Medical Plan: Patient's SENA-7 score positive for anxiety which has been existing condition for her. She continues with buspirone, hydroxyzine and sertraline with good effect. She continues to live in sober living and continues to maintain sobriety from alcohol. (2) Insomnia: Code(s): G47.00 - Insomnia, unspecified Category: Medical Qualifiers: Insomnia type: primary Qualified Code(s): F51.01 - Primary insomnia Plan: She has been having lot of trouble sleeping. She does use trazodone at night with some decent affect. She is interested in adding melatonin before bed to help sleep (3) Alcohol abuse: Code(s): F10.10 - Alcohol abuse, uncomplicated Category: Social Hx Plan: Has been in remission over the last 10 months. Continues to live in sober living. . 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
== END 2024-04-16 11:19 | disposition home or self-care (01) ==
PROVIDERS: PCP Physician Assistant; Visit Provider Physician Assistant
DX: F41.1 Generalized anxiety disorder (principal); F51.01 Primary insomnia; F10.10 Alcohol abuse, uncomplicated

== ENCOUNTER → 2024-04-16 10:26 | Outpatient (BNVA) | payer OTHER, SELFPAY | PROVIDERS: PCP Physician Assistant; Visit Provider Physician Assistant | DX: F41.1 Generalized anxiety disorder (principal); F51.01 Primary insomnia; F10.10 Alcohol abuse, uncomplicated | CPT/HCPCS: 96127; 99212 ==

== ENCOUNTER 2024-05-16 12:41 | Outpatient (AMB) | payer OTHER, SELFPAY ==
--- NOTE | 2024-05-16 12:57 | A.OFFPC_ITS ---
Vital Signs 3 05/16/24 13:07 Height 5 ft 3 in Weight 111 lb 4 oz BMI 19.7 BP 98/58 L Blood Pressure Location Lt brachial Position Sitting Pulse 58 Pulse Source Pulse Oximeter Temp 97.5 F Temp Source Temporal Artery Scan Pulse Oximetry (%) 99 Oxygen Delivery Method Room Air Intake Visit Reasons: ultrasound to rule out a DVT. Market Consultant Required: No Accompanied by: Self / Same As Patient Allergies Sulfa (Sulfonamide Antibiotics) [SULFA (SULFONAMIDE ANTIBIOTICS)] Allergy (Mild, Verified 05/16/24 13:10) RASH amoxicillin [From Augmentin] Adverse Reaction (Intermediate, Verified 05/16/24 13:10) Abdominal Pain citalopram [From Celexa] Adverse Reaction (Intermediate, Verified 05/16/24 13:10) Agitated clavulanic acid [From Augmentin] Adverse Reaction (Intermediate, Verified 05/16/24 13:10) Abdominal Pain gabapentin Adverse Reaction (Intermediate, Verified 05/16/24 13:10) Dizziness prazosin Adverse Reaction (Intermediate, Verified 05/16/24 13:10) Insomnia magnesium Adverse Reaction (Verified 05/16/24 13:10) Diarrhea Medication List - Last Reconciled 05/16/24 by Ollie Pulliam PA-C baclofen 10 mg PO DAILY 30 days buspirone 10 mg PO BID 90 days celecoxib (Celebrex) 200 mg PO BID 30 days cholecalciferol (vitamin D3) 25 mcg PO DAILY 90 days clonidine HCl 0.1 mg PO TID 30 days hydroxyzine HCl 50 mg (2 x 25 mg) PO BEDTIME 90 days hyoscyamine sulfate 0.25 mg (2 x 0.125 mg) PO BID PRN 14 days lidocaine 5% 1 patch topical DAILY 30 days loperamide 2 mg PO Q8H PRN 7 days melatonin 6 mg (2 x 3 mg) PO BEDTIME 30 days multivitamin 1 tab PO DAILY sertraline 50 mg PO DAILY 30 days trazodone 25 mg (1/2 x 50 mg) PO BEDTIME 30 days Tobacco use date assessed: 04/16/24 Dental Screening Dental Screen Date: 04/16/24 HPI ultrasound to rule out a DVT. 2 HPI0 Details The patient is a 43-year-old female presenting with knee pain and concerns of a possible cyst formation. The knee pain has been persistent for eight months, with recent exacerbations noted over the last three weeks. The patient describes the pain as a pulling sensation under the knee and identifies that the pain increased after increased walking activity. There is a noted familial history of knee problems, and the patient has a known diagnosis of arthritis, confirmed in past evaluations. X-ray reports confirm no fracture, joint effusion, or osseous abnormality in the affected knee. Previously, the patient received cortisone injections for her arthritis. During the conversation, a synovial cyst diagnosis was debated, with avoidance of further imaging unless clinically required. [facility] Medical History Pancolitis Alcohol withdrawal Alcohol intoxication Alcohol use disorder, severe, dependence Fracture of greater tuberosity of right humerus Closed fracture of greater tuberosity of right humerus Pancytopenia Alcohol withdrawal seizure Diverticulitis Pelvic abscess in female Anxiety Alcohol abuse Surgical History No pertinent past surgical history Family History Father Medical history unknown Mother Medical history unknown Hypothyroid Paternal Grandfather Cancer Sister Epilepsy Daughter In good health Son In good health Other Substance use disorder Social History Household Members: Significant Other Household Members Other:: boyfriend. Housing: House Do you presently have visiting nurse or other home services: No Unable to assess alcohol history related to: Refusing to respond Alcohol intake: former Year quit: 2021 Comment: REFUSING ALARM Patient Tobacco Use Status: Current everyday Tobacco user Tobacco use type: Cigarette Cigarette Packs Per Day: 0.5 Cigarettes Per Day: 4 e-Cigarette/Vaping Use: Never Used Second Hand Smoke Exposure: No Substance Use Type: Marijuana Advance Directives Date on File: 01/25/21 service: No Current occupational status: employed Current occupation: [employer] Cognitive needs: No Hearing needs: No Vision needs: No Female Reproductive History Menstrual Age of Menarche: 9 Questionnaire Thrive Questionnaire Date Thrive assessed: 04/16/24 SENA-7 AMB Questionnaire SENA-7 Date SENA - 7 assessed: 04/16/24 Source: Developed by Drs. Aries Dawkins, Destiny Lomas, Guy Plata and colleagues, with an educational meño from [employer]. Review of Systems Const Denies headache(s) Eyes Denies loss of vision ENT Denies vertigo, Denies dizziness, Denies headache(s) and Denies sore throat Card Denies chest pain, Denies leg edema and Denies lightheadedness Resp Denies cough, Denies hemoptysis and Denies wheezing GI Denies abdominal pain, Denies melena, Denies constipation, Denies diarrhea and Denies vomiting Denies urinary frequency, Denies dysuria and Denies urinary urgency Musc Denies arthralgias, Denies joint swelling, Denies numbness and Denies tingling Neuro Denies Abnormal speech present, Denies behavioral changes, Denies vertigo, Denies dizziness, Denies headache(s), Denies loss of vision, Denies memory loss, Denies numbness and Denies tingling Psych Denies anxiety, Denies behavioral changes, Denies depression, Denies memory loss and Denies panic attacks Maxime/Lymph Denies easy bleeding and Denies easy bruising Aller/Immun Denies wheezing Physical exam (Primary Care) Vital Signs: Last Vital Signs Temp 97.5 F 05/16/24 13:07 Pulse 58 05/16/24 13:07 BP 98/58 L 05/16/24 13:07 Pulse Ox 99 05/16/24 13:07 Oxygen Delivery Method Room Air 05/16/24 13:07 BMI result Body Mass Index 19.7 Tobacco/Smoking Status: Tobacco use Status Tobacco use date assessed 04/16/24 05/16/24 12:57 Patient Tobacco Use Status Current everyday Tobacco 05/16/24 12:57 Tobacco use type Cigarette 05/16/24 12:57 e-Cigarette/Vaping Use Never Used 05/16/24 12:57 Thrive Assessment: Date of Thrive Assessment Date Thrive assessed 04/16/24 05/16/24 12:57 Const General: healthy appearing, no acute distress, alert and awake Nutritional Appearance: well nourished Orientation/consciousness: oriented to person, oriented to place and oriented to time HENMT Ears: TM's normal bilaterally General nose exam: Normal nasal mucous membranes and turbinates present Eyes Conjunctivae: conjunctivae normal Sclerae: sclerae normal Pupils: Equal, round and reactive pupils present Neck Neck: Yes no lymphadenopathy and Yes no JVD Thyroid: Thyroid normal Carotids: no bruits Resp Effort & Inspection: normal respiratory effort and not tachypneic Auscultation: no crackles, no rales, no rhonchi and no wheezes Cardio Rate: regular rate Rhythm: regular rhythm Heart sounds: no murmurs and normal S1 and S2 GI Palpation (GI): Soft to palpation, nontender, no hepatomegaly and no splenomegaly Auscultation: normal bowel sounds Skin General skin exam: no rashes or lesions noted and dry skin Neuro General: oriented to person, oriented to place and oriented to time Cranial nerves: Yes Equal, round and reactive pupils present Speech: No Abnormal speech present Gait exam (Neuro): Normal gait present Motor exam (neuro): no tremor noted Extrem Right upper extremity: full ROM Left upper extremity: full ROM Right lower extremity: full ROM; no edema Left lower extremity: full ROM; no edema Knee images: 2 1. SYNOVIAL CYSTIC LIKE MASS OVER THE LATERAL ASPECT OF THE RIGHT KNEE Psych Mental Status: mental status grossly normal Speech and movement: Normal speech and movement present Affect: normal affect Attitude: cooperative Thought process: Normal thought process present Coding Level of Care Code Est Pt Level 3 (53375) Diagnoses Synovial cyst of right knee M71.21 Assessment & Plan Assessment & Plan (1) Synovial cyst of right knee: Code(s): M71.21 - Synovial cyst of popliteal space [Johnson], right knee Category: Medical Plan: Plan to monitor the synovial cyst conservatively given its self-limiting nature and absence of severe symptoms. Discussed avoiding unnecessary procedures or imaging unless symptoms drastically change. Medications: Refilled 2 hyoscyamine sulfate 0.25 mg (2 x 0.125 mg) PO BID 14 days PRN 56 tabs 2RF cramping
[2024-05-16 13:07] VITALS: BP 98/58; PULSE 58; TEMP 36.4; O2SAT 99; BMI 19.7
--- OUTSIDE RECORDS SUMMARY | 2024-05-16 15:46 | XMS_ITS | Patient Health Record ---
Author Organization [facility] Address [address] [place] [id number] Care Team Providers Care Molecular Biologist Name Role Phone Ollie Pulliam Primary Care Provider Mark Tobias Jr Unavailable Allergies Allergen (clinical drug ingredient) Drug/Non Drug Allergy documented on EMR Reaction Allergy Type Onset Date Status Substance with sulfonamide structure and antibacterial mechanism of action (substance) Sulfa Antibiotics Unknown Drug Allergy Active clavulanic acid Clavulanic Acid Unknown Drug Allergy Active amoxicillin Amoxicillin Unknown Drug Allergy Act antonio Magnesium 27 Unknown Drug Allergy Acti ve Reason For Referral No Information Medications Medication SIG (Take, Route, Frequency, Duration) Notes [...] HCl 100 MG Oral for 30 Active Immunizations Vaccine Route Administration Date Status Comme nts Influenza Unknown 12/22/2021 Administered Social History Tobacco Use: Social History Observation Description Date Details (start date - stop date) Never Smoker NA - NA Tobacco Use/Smoking Question Answer Notes Patient is a nonsmoker Alcohol Screen Question Answer Notes Did you have a drink containing alcohol in the p ast year? No Points 0 Interpretation Negative Problems Problem Type SNOMED Code ICD Code Onset Dates Problem Status W/U Status Risk Notes Problem 248410819 Celiac disease (K90.0) Active confirmed Problem Dysphagia (12438296) Dysphagia (R13.10) Active confirmed Problem Fatty liver (936366666) Fatty liver (K76.0) Active confirmed Problem Alcoholic liver disease (64781908) Alcoholic liver disease (K70.9) Active confirmed Problem Diverticulitis of colon (594247752) Diverticulitis of colon (K57.32) Active confirmed Problem 24198749 Dysphagia, unspecified type (R13.10) Active confirmed Problem Alcoholic hepatitis (540291928) Alcoholic hepatitis (K70.10) Active confirmed Problem 0519545 Diverticulitis o f large intestine with abscess without bleeding (K57.20) Active confirmed Problem 34435354 Gastric intestinal metaplasia without dysplasia (K31.A19) Active confirmed Plan Of Treatment Future Test Test Name Order Date UPPER GI ENDOSCOPY 01/12/2022 COLONOSCOPY 01/12/2022 Insurance Providers Payer Name Payer Address Payer Phone Subscriber Number Group Number Insured Name Patient Relationship to Insured Coverage Start Date Coverage End Date [facility] [address] [address] [place], [place] [id number] BRICE RUTHERFORD Self - patient is the insured Medical (General) History Medical History History ICD Code Alcoholic hepatitis Diverticulitis with abscess requiring dr rdz Celiac disease Surgical History Surgery Date(Month/Year) Hospitalization History Reason Date(Month/Year) diverticulitis with abscess and a;cohol abuse 2021
== END 2024-05-16 13:28 | disposition home or self-care (01) ==
LOC: HO.HMCH 12:41
PROVIDERS: PCP Physician Assistant; Visit Provider Physician Assistant
DX: M71.21 Synovial cyst of popliteal space [Baker], right knee (principal)

== ENCOUNTER → 2024-05-16 12:41 | Outpatient (BNVA) | payer OTHER, SELFPAY | PROVIDERS: PCP Physician Assistant; Visit Provider Physician Assistant | DX: M71.21 Synovial cyst of popliteal space [Baker], right knee (principal) | CPT/HCPCS: 99212 ==

== ENCOUNTER 2024-06-18 12:38 | Outpatient (AMB) | payer OTHER, SELFPAY ==
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
[2024-06-18 12:51] VITALS: BP 104/76; PULSE 92; TEMP 36.6; O2SAT 98; BMI 19.5
== END 2024-06-18 13:19 | disposition home or self-care (01) ==
LOC: HO.HMCH 12:39
PROVIDERS: PCP Physician Assistant; Visit Provider Physician Assistant
DX: K52.9 Noninfective gastroenteritis and colitis, unspecified (principal); R22.41 Localized swelling, mass and lump, right lower limb

== ENCOUNTER → 2024-06-18 12:38 | Outpatient (BNVA) | payer OTHER, SELFPAY | PROVIDERS: PCP Physician Assistant; Visit Provider Physician Assistant | DX: K52.9 Noninfective gastroenteritis and colitis, unspecified (principal); R22.41 Localized swelling, mass and lump, right lower limb | CPT/HCPCS: 96127; 99212 ==

== ENCOUNTER 2024-07-11 12:03 | Outpatient (REF) | payer OTHER, SELFPAY ==
--- NOTE | 2024-07-11 13:52 | MHC.AU.HA2 ---
Hearing Instrument Fitting- Adult- Binaural Date of Visit: 07/11/24 Hearing Instruments Dispensed: Right Ear: Make, Model, Color, Serial Number: Oticon Intent 2 miniRITE-R SN: [id number] Color: Chroma Beige Hosiery Looper Repair Warranty: 07/27/2027 Hosiery Looper Loss and Damage Warranty: 07/27/2027 [facility] Service Plan: 07/11/2025 Battery Size: Rechargeable Chairman & Co Founder/Slim Tube: 1/85 Earmold/Dome/CShell/SlimTip: 8mm double pressley dome Type of Wax Guard: miniFit Left Ear: Make, Model, Color, Serial Number: Oticon Intent 2 miniRITE-R SN: [id number] Color: Chroma Beige Hosiery Looper Repair Warranty: 06/26/2027 Hosiery Looper Loss and Damage Warranty: 06/26/2027 [facility] Service Plan: 07/11/2025 Battery Size: Rechargeable Chairman & Co Founder/Slim Tube: 1/85 Earmold/Dome/CShell/SlimTip: 8mm double pressley dome Type of Wax Guard: miniFit Accessories/Assistive Technology: [employer]er Watch Train miniRITE SN: [id number] Summary of Fitting: Performed electroacoustic analysis in test box prior to appointment. Ran feedback analyzer and real ear measures. Decreased to AM2. Counseled extensively on importance of daily, consistent use and acclimatization period. As previously mentioned, Susan hesitant toward HAs but willing to commit to wearing daily for next two weeks. Questioned loud environments or certain voices that already give her headaches. Advised to use VC, as needed, instead of removing HAs entirely. Discussed care, use, and rechargeability including manually turning on/off, VC use, and changing domes and wax guards. Discussed bluetooth, will download radha and pair at home. Recommendations: A hearing instrument follow-up was scheduled. Diagnosis Code(s): Primary Diagnosis: H90.3 Bilateral Sensorineural Hearing Loss Signature: Provider: Teo Cordero, [facility]
== END 2024-07-11 12:04 | disposition home or self-care (01) ==
LOC: HO.HAP 12:03
PROVIDERS: PCP Physician Assistant; Visit Provider Internal Medicine
DX: Z46.1 Encounter for fitting and adjustment of hearing aid (principal); H90.3 Sensorineural hearing loss, bilateral
CPT/HCPCS: 92595; V5011; V5020; V5160; V5261

== ENCOUNTER 2024-07-25 15:18 | Outpatient (REF) | payer OTHER, SELFPAY ==
--- NOTE | ~2024-07-25 | US_ITS ---
EXAMINATION: Ultrasound right lower extremity nonvascular. CLINICAL INDICATION: Localized swelling, mass and lump right lower limb. COMPARISON: Ultrasound right upper extremity 03/02/2022. TECHNIQUE: Limited ultrasound imaging to the right lower lateral knee was performed over palpable masses felt. FINDINGS: There are multiple anechoic cystic areas along the right right lateral knee. No increased vascularity. US/US extremity nonvascular IMPRESSION: Multiple cystic areas along the right lateral knee without increased vascularity. Differential diagnosis includes hematoma/seroma, lateral knee joint effusion. Simple ultrasound guided aspiration of these cystic structures can be performed for further evaluation. Electronically signed by: Wilbert Pelayo MD 07/26/2024 07:32 AM EDT
== END 2024-07-25 15:19 | disposition home or self-care (01) ==
LOC: HO.US 15:18
PROVIDERS: PCP Physician Assistant; Visit Provider Physician Assistant
DX: R22.41 Localized swelling, mass and lump, right lower limb (principal)
CPT/HCPCS: 76882

== ENCOUNTER → 2024-07-25 15:21 | Outpatient (BNV) | payer OTHER, SELFPAY | PROVIDERS: PCP Physician Assistant; Visit Provider Radiology Diagnostic Radiology | DX: R22.41 Localized swelling, mass and lump, right lower limb (principal) | CPT/HCPCS: 76882 ==

== ENCOUNTER 2024-07-30 13:42 | Outpatient (REF) | payer OTHER, SELFPAY | END 2024-07-30 13:43 | disposition home or self-care (01) | LOC: HO.HAP 13:42 | PROVIDERS: Visit Provider Physician Assistant | DX: Z13.89 Encounter for screening for other disorder (principal) ==

== ENCOUNTER 2024-08-14 11:28 | Outpatient (AMB) | payer OTHER, SELFPAY ==
[2024-08-14 11:59] VITALS: BP 106/58; PULSE 64; TEMP 36.3; O2SAT 98
--- NOTE | 2024-08-14 11:59 | A.OFFPC_ITS ---
Vital Signs 3 08/14/24 11:59 Height 5 ft 3 in Weight 113 lb 2 oz BMI 20.0 BP 106/58 L Blood Pressure Location Lt brachial Position Sitting Pulse 64 Pulse Source Pulse Oximeter Temp 97.3 F Temp Source Temporal Artery Scan Pulse Oximetry (%) 98 Oxygen Delivery Method Room Air Intake Visit Reasons: f/u Anxiety/ Alcohol use Allergies Sulfa (Sulfonamide Antibiotics) (SULFA (SULFONAMIDE ANTIBIOTICS)) Allergy (Mild, Verified 08/14/24 12:19) RASH amoxicillin (From Augmentin) Adverse Reaction (Intermediate, Verified 08/14/24 12:19) Abdominal Pain citalopram (From Celexa) Adverse Reaction (Intermediate, Verified 08/14/24 12:19) Agitated clavulanic acid (From Augmentin) Adverse Reaction (Intermediate, Verified 08/14/24 12:19) Abdominal Pain gabapentin Adverse Reaction (Intermediate, Verified 08/14/24 12:19) Dizziness prazosin Adverse Reaction (Intermediate, Verified 08/14/24 12:19) Insomnia magnesium Adverse Reaction (Verified 08/14/24 12:19) Diarrhea Medication List - Last Reconciled 08/14/24 by Ollie Pulliam PA-C baclofen 10 mg PO DAILY 30 days buspirone 10 mg PO BID 90 days celecoxib (Celebrex) 200 mg PO BID 30 days cholecalciferol (vitamin D3) 25 mcg PO DAILY 90 days clonidine HCl 0.1 mg PO TID 30 days hydroxyzine HCl 50 mg (2 x 25 mg) PO BEDTIME 90 days hyoscyamine sulfate 0.25 mg (2 x 0.125 mg) PO BID PRN 14 days lidocaine 5% 1 patch topical DAILY 30 days loperamide 2 mg PO Q12H 15 days melatonin 6 mg (2 x 3 mg) PO BEDTIME 30 days multivitamin 1 tab PO DAILY prednisone 10 mg PO DIRECTED 9 days psyllium husk (Metamucil) 1 tbsp PO DAILY PRN 30 days sertraline 50 mg PO DAILY 30 days tramadol 50 mg PO Q8H 4 days trazodone 25 mg (1/2 x 50 mg) PO BEDTIME 30 days Tobacco use date assessed: 04/16/24 Dental Screening Dental Screen Date: 04/16/24 HPI f/u Anxiety/ Alcohol use 2 HPI0 Details Patient is a 43-year-old female here today for follow-up visit. Patient has a history of alcohol use disorder, anxiety and depression. RIGHT KNEE SYNOVIAL CYST: The right knee pain has been persistent, with a noticeable lump and swelling on the affected side, causing significant discomfort and difficulty in ambulation. The patient has been using Celecoxib for inflammation, which provides some relief, but the pain persists, especially after prolonged activity. A synovial cyst was identified in the right knee through imaging, and the patient is awaiting an orthopedic consultation scheduled for September. Patient does report significant tightness and pain in her right knee especially with going up and downstairs History of alcohol use disorder: She continues on sober living and now in [facility]. She has I part-time job at a local [employer] She is now nearly 14 month sober. She is considering getting her own apartment in near future. .. Depression/ anxiety: Has been much better since changing her living situation. She continues with SSRI (sertraline 25 mg) therapy that has been effective for her. [facility] Medical History Pancolitis Alcohol withdrawal Alcohol intoxication Alcohol use disorder, severe, dependence Fracture of greater tuberosity of right humerus Closed fracture of greater tuberosity of right humerus Pancytopenia Alcohol withdrawal seizure Diverticulitis Pelvic abscess in female Anxiety Alcohol abuse Surgical History No pertinent past surgical history Family History Father Medical history unknown Mother Medical history unknown Hypothyroid Paternal Grandfather Cancer Sister Epilepsy Daughter In good health Son In good health Other Substance use disorder Social History Household Members: Significant Other Household Members Other:: boyfriend. 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 Cognitive needs: No Hearing needs: No Vision needs: No Female Reproductive History Menstrual Age of Menarche: 9 Questionnaire Thrive Questionnaire Date Thrive assessed: 06/14/24 I am a: Patient What is your living situation today?: I have a steady place to live Within the past 12 months, did the food you bought not last and you didn't have the money to get more?: Never true Within the past 12 months, did you worry whether your food would run out before you got money to buy more?: Sometimes True Do you have trouble paying for medicines?: No Do you have trouble getting transportation to medical appointments?: No Do you have trouble paying your heating and electricity bill?: No Do you have trouble taking care of your child, family member or friend?: No Do you have trouble with day-to-day activities such as bathing, preparing meals, shopping, managing finances, etc.?: No Are you currently unemployed and looking for a job?: No Are you interested in more education?: No Please select the resources that you would like help with: None THRIVE Score: 1 SENA-7 AMB Questionnaire SENA-7 Date SENA - 7 assessed: 06/18/24 Source: Developed by Drs. Aries Dawkins, Destiny Lomas, Guy Plata and colleagues, with an educational meño from [employer]. Review of Systems Const Denies headache(s) Eyes Denies loss of vision ENT Denies vertigo, Denies dizziness, Denies headache(s) and Denies sore throat Card Denies chest pain, Denies leg edema and Denies lightheadedness Resp Denies cough, Denies hemoptysis and Denies wheezing GI Denies abdominal pain, Denies melena, Denies constipation, Denies diarrhea and Denies vomiting Denies urinary frequency, Denies dysuria and Denies urinary urgency Musc Denies arthralgias, Denies joint swelling, Denies numbness and Denies tingling Neuro Denies Abnormal speech present, Denies behavioral changes, Denies vertigo, Denies dizziness, Denies headache(s), Denies loss of vision, Denies memory loss, Denies numbness and Denies tingling Psych Denies anxiety, Denies behavioral changes, Denies depression, Denies memory loss and Denies panic attacks Maxime/Lymph Denies easy bleeding and Denies easy bruising Aller/Immun Denies wheezing Physical exam (Primary Care) Vital Signs: Last Vital Signs Temp 97.3 F 08/14/24 11:59 Pulse 64 08/14/24 11:59 BP 106/58 L 08/14/24 11:59 Pulse Ox 98 08/14/24 11:59 Oxygen Delivery Method Room Air 08/14/24 11:59 BMI result Body Mass Index 20.0 Tobacco/Smoking Status: Tobacco use Status Tobacco use date assessed 04/16/24 08/14/24 12:05 Patient Tobacco Use Status Current everyday Tobacco 08/14/24 12:05 Tobacco use type Cigarette 08/14/24 12:05 e-Cigarette/Vaping Use Never Used 08/14/24 12:05 Thrive Assessment: Date of Thrive Assessment Date Thrive assessed 06/14/24 08/14/24 12:05 Const General: healthy appearing, no acute distress, alert and awake Nutritional Appearance: well nourished Orientation/consciousness: oriented to person, oriented to place and oriented to time HENMT Ears: TM's normal bilaterally General nose exam: Normal nasal mucous membranes and turbinates present Eyes Conjunctivae: conjunctivae normal Sclerae: sclerae normal Pupils: Equal, round and reactive pupils present Neck Neck: Yes no lymphadenopathy and Yes no JVD Thyroid: Thyroid normal Carotids: no bruits Resp Effort & Inspection: normal respiratory effort and not tachypneic Auscultation: no crackles, no rales, no rhonchi and no wheezes Cardio Rate: regular rate Rhythm: regular rhythm Heart sounds: no murmurs and normal S1 and S2 GI Palpation (GI): Soft to palpation, nontender, no hepatomegaly and no splenomegaly Auscultation: normal bowel sounds Skin General skin exam: no rashes or lesions noted and dry skin Neuro General: oriented to person, oriented to place and oriented to time Cranial nerves: Yes Equal, round and reactive pupils present Speech: No Abnormal speech present Gait exam (Neuro): Normal gait present Motor exam (neuro): no tremor noted Extrem Right upper extremity: full ROM Left upper extremity: full ROM Right lower extremity: full ROM; no edema Left lower extremity: full ROM; no edema Knee images: 2 1. LARGE CYSTIC LIKE MASS IN THE LATERAL ASPECT OF THE RIGHT KNEE Psych Mental Status: mental status grossly normal Speech and movement: Normal speech and movement present Affect: normal affect Attitude: cooperative Thought process: Normal thought process present Coding Level of Care Code Est Pt Level 3 (29950) Diagnoses Synovial cyst of right knee M71.21 SENA (generalized anxiety disorder) F41.1 Alcohol abuse F10.10 Assessment & Plan Assessment & Plan (1) Synovial cyst of right knee: Code(s): M71.21 - Synovial cyst of popliteal space [Johnson], right knee Category: Medical Plan: The patient will continue using Celecoxib for inflammation management and Tramadol for severe pain episodes. An orthopedic consultation is scheduled for September to further evaluate the knee condition. Consideration for an MRI prior to the orthopedic visit to assess for any additional structural issues. (2) SENA (generalized anxiety disorder): Code(s): F41.1 - Generalized anxiety disorder Category: Medical Plan: Patient's anxiety has been well controlled and now in his situation. She continues with buspirone, hydroxyzine and sertraline with good effect. She continues to live in sober living and continues to maintain sobriety from alcohol. (3) Alcohol abuse: Code(s): F10.10 - Alcohol abuse, uncomplicated Category: Social Hx Plan: Has been in remission over the last 14months. Continues to live in sober living. . She is now working at a local [employer]. 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 Orders: Orders 2 knee RT wo con Today M23.51 - Chronic instability of knee, right knee, M71.21 - Synovial cyst of popliteal space [Johnson], right knee Medications: Changed 2 From tramadol 50 mg PO Q8H 4 days 12 tabs 0RF pain M25.561 - Pain in right knee To tramadol 50 mg PO Q8H PRN 21 tabs 0RF pain 7 days M25.561 - Pain in right knee Refilled 2 celecoxib (Celebrex) 200 mg PO BID 60 caps 3RF 30 days M25.561 - Pain in right knee hyoscyamine sulfate 0.25 mg (2 x 0.125 mg) PO BID PRN 56 tabs 3RF cramping 14 days
== END 2024-08-14 12:39 | disposition home or self-care (01) ==
LOC: HO.HMCH 11:28
PROVIDERS: PCP Physician Assistant; Visit Provider Physician Assistant
DX: M71.21 Synovial cyst of popliteal space [Baker], right knee (principal); F41.1 Generalized anxiety disorder; F10.10 Alcohol abuse, uncomplicated

== ENCOUNTER → 2024-08-14 11:28 | Outpatient (BNVA) | payer OTHER, SELFPAY | PROVIDERS: PCP Physician Assistant; Visit Provider Physician Assistant | DX: M71.21 Synovial cyst of popliteal space [Baker], right knee (principal); F41.9 Anxiety disorder, unspecified; F32.A Depression, unspecified; F41.1 Generalized anxiety disorder; F10.10 Alcohol abuse, uncomplicated; M23.51 Chronic instability of knee, right knee | CPT/HCPCS: 99212 ==

== ENCOUNTER → 2024-09-17 10:04 | Outpatient (BNV) | payer OTHER, SELFPAY | PROVIDERS: PCP Physician Assistant; Visit Provider Radiology Diagnostic Radiology | DX: M67.461 Ganglion, right knee (principal) | CPT/HCPCS: 73721 ==

== ENCOUNTER 2024-09-17 10:13 | Outpatient (REF) | payer OTHER, SELFPAY ==
--- NOTE | ~2024-09-17 | MR_ITS ---
EXAMINATION: MR KNEE WITHOUT CONTRAST, RIGHT CLINICAL INFORMATION: Synovial cyst. Pain. COMPARISON: July 08, 2017. TECHNIQUE: MRI of the knee without contrast was performed using routine sequences on a high-field scanner. FINDINGS: Subtle bone marrow signal in the anterior aspect of the lateral tibial plateau/epiphysis extending into the anterior midline. There is an 11 mm lobulated fluid signal characteristic abnormality in the inferior aspect of the lateral knee beneath the lateral collateral ligament and surrounding the tibia-fibula ligament with the likely extending into the deep fat planes of the lateral aspect of the inferior right knee which measures 41 x 11 x 43 mm. These septated fluid signal characteristic abnormality extending from the skin surface of the fat planes just lateral to the lateral collateral ligament. MENISCI: Medial Meniscus: Intact Lateral Meniscus: Intact LIGAMENTS: Cruciate: Intact Collateral: Intact EXTENSOR MECHANISM: Intact ARTICULAR CARTILAGE/BONE: Patellofemoral Compartment: Normal Medial Compartment: Normal Lateral Compartment: Normal JOINT FLUID AND BURSAE: Small trace amount of fluid suprapatellar bursa and posterior medial compartment and the superior medial aspect of the posterior joint capsule at the medial femoral condyle. No popliteal cyst. MR/MR knee RT wo con IMPRESSION: 41 x 11 x 43 mm septated ganglion, recurrent, anterior proximal tibiofibular joint from the skin to the deep fat planes abutting the lateral collateral ligament. Overall larger since prior exam. Small focal bone contusion, anterior and lateral tibial plateau. Small trace joint effusion. No popliteal cyst. Electronically signed by: Raghav Kruse MD 09/17/2024 11:20 AM EDT
== END 2024-09-17 10:14 | disposition home or self-care (01) ==
LOC: HO.MRI 10:13
PROVIDERS: PCP Physician Assistant; Visit Provider Physician Assistant
DX: M25.561 Pain in right knee (principal); M71.21 Synovial cyst of popliteal space [Baker], right knee; M23.51 Chronic instability of knee, right knee
CPT/HCPCS: 73721

== ENCOUNTER 2024-09-23 08:25 | Outpatient (REF) | payer OTHER, SELFPAY ==
--- NOTE | ~2024-09-23 | XR_ITS ---
EXAMINATION: XR KNEE, RIGHT CLINICAL INFORMATION: M17.11 - Unilateral primary osteoarthritis, right knee COMPARISON: None available. TECHNIQUE: Three views of the right knee. FINDINGS: There is no joint effusion. There is questionable narrowing of the medial joint space. There are no osteophytes. There is no abnormal soft tissue calcification. XR/XR knee RT 3V IMPRESSION: Questionable nonspecific narrowing of the medial joint space. Electronically signed by: Brain Etienne MD 09/23/2024 11:42 AM EDT
--- NOTE | ~2024-09-23 | XR_ITS ---
EXAMINATION: XR KNEE, RIGHT CLINICAL INFORMATION: M17.11 - Unilateral primary osteoarthritis, right knee COMPARISON: None available. TECHNIQUE: Three views of the right knee. FINDINGS: There is no joint effusion. There is questionable narrowing of the medial joint space. There are no osteophytes. There is no abnormal soft tissue calcification. There is a mass in the subcutaneous soft tissues lateral to the medial joint line. Extends from the region of the femoral condyle to the proximal fibula. XR/XR knee RT 3V IMPRESSION: Questionable nonspecific narrowing of the medial joint space. Lateral mass in the subcutaneous soft tissues was demonstrated on MRI September 17, 2024 and may be associated with an occult tear of the lateral meniscus. Electronically signed by: Brain Etienne MD 09/23/2024 11:46 AM EDT
== END 2024-09-23 08:26 | disposition home or self-care (01) ==
LOC: HO.HOSX 08:25
PROVIDERS: PCP Physician Assistant; Visit Provider Physician Assistant
DX: M17.11 Unilateral primary osteoarthritis, right knee (principal); M71.21 Synovial cyst of popliteal space [Baker], right knee; M25.561 Pain in right knee
CPT/HCPCS: 73562; 99212

== ENCOUNTER → 2024-09-23 11:13 | Outpatient (BNV) | payer OTHER, SELFPAY | PROVIDERS: PCP Physician Assistant; Visit Provider Radiology Diagnostic Radiology | DX: M17.11 Unilateral primary osteoarthritis, right knee (principal) | CPT/HCPCS: 73562 ==

== ENCOUNTER 2024-09-23 11:43 | Outpatient (AMB) | payer OTHER, SELFPAY ==
--- NOTE | 2024-09-23 11:50 | MHC.OFFVIS ---
Vital Signs 09/23/24 11:57 Height 5 ft 3 in Weight 113 lb BMI 20.0 Intake Visit Reasons: New prob- Right knee OA Intake Note: Susan is a 44 year old female who presents today as an established patient, new problem visit to evaluate right knee. Patient was seen by PCP, MRI was ordered and referred to orthopedics. Patient reports that she woke with a lump located at the lateral aspect of knee. Denies injury. States lump is tender to the touch and feels a pulling sensation in her knee. Denies numbness or tingling. 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 MR/MR knee RT wo con IMPRESSION: 41 x 11 x 43 mm septated ganglion, recurrent, anterior proximal tibiofibular joint from the skin to the deep fat planes abutting the lateral collateral ligament. Overall larger since prior exam. Small focal bone contusion, anterior and lateral tibial plateau. Small trace joint effusion. No popliteal cyst. Allergies Sulfa (Sulfonamide Antibiotics) (SULFA (SULFONAMIDE ANTIBIOTICS)) Allergy (Mild, Verified 09/23/24 11:51) RASH amoxicillin (From Augmentin) Adverse Reaction (Intermediate, Verified 09/23/24 11:51) Abdominal Pain citalopram (From Celexa) Adverse Reaction (Intermediate, Verified 09/23/24 11:51) Agitated clavulanic acid (From Augmentin) Adverse Reaction (Intermediate, Verified 09/23/24 11:51) Abdominal Pain gabapentin Adverse Reaction (Intermediate, Verified 09/23/24 11:51) Dizziness prazosin Adverse Reaction (Intermediate, Verified 09/23/24 11:51) Insomnia magnesium Adverse Reaction (Verified 09/23/24 11:51) Diarrhea HPI HPI New prob- Right knee OA: Details: 44-year-old female presents to the office today for a lump she noticed on the right knee approximately 8-12 months ago. She denies injury. She states she woke up and noticed the lump. She does complain of pain behind the patella. She states the lump causes a pulling sensation along the soft tissues of the knee. She was seen by her primary care physician who referred her to our office for ortho eval. She did have an MRI which was significant for a ganglion cyst. [facility] Medical History Pancolitis Alcohol withdrawal Alcohol intoxication Alcohol use disorder, severe, dependence Fracture of greater tuberosity of right humerus Closed fracture of greater tuberosity of right humerus Pancytopenia Alcohol withdrawal seizure Diverticulitis Pelvic abscess in female Anxiety Alcohol abuse Surgical History No pertinent past surgical history Family History Father Medical history unknown Mother Medical history unknown Hypothyroid Paternal Grandfather Cancer Sister Epilepsy Daughter In good health Son In good health Other Substance use disorder Social History Household Members: Significant Other Household Members Other:: boyfriend. 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 This structure is firm. It is not reducible. There is no significant discomfort with palpation. She does have full range of motion of the knee. Pulses are present and sensation is intact. Assessment & Plan Assessment & Plan (1) Synovial cyst of right knee: Code(s): M71.21 - Synovial cyst of popliteal space [Johnson], right knee Category: Medical Plan: We discussed options which include conservative management with compression. Aspiration versus excision. After discussion with Dr. Brody the likelihood of the cyst returning with aspiration or even excision is high. Recommend conservative management with Elmer wrap which she will do. I explained it could rupture. I also offered her a 2nd opinion with a general surgeon to see if they have any interested in excising this mass. She is not interested in that at this time. She will contact our office if there is any questions going forward otherwise follow up as needed. Orders: Orders XR knee RT 3V Today M17.11 - Unilateral primary osteoarthritis, right knee Coding Level of Care Code Est Pt Level 3 (87656) Complex EM visit Add On G2211 Diagnoses Synovial cyst of right knee M71.21
== END 2024-09-23 12:20 | disposition home or self-care (01) ==
LOC: HO.HOS 11:44
PROVIDERS: PCP Physician Assistant; Visit Provider Physician Assistant
DX: M71.21 Synovial cyst of popliteal space [Baker], right knee (principal)
CPT/HCPCS: 99213

== ENCOUNTER 2025-01-09 13:40 | Outpatient (AMB) | payer OTHER, SELFPAY ==
--- NOTE | 2025-01-09 14:01 | A.OFFVIS_ITS ---
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 Required: No Accompanied by: Self / Same As Patient Allergies Sulfa (Sulfonamide Antibiotics) (SULFA (SULFONAMIDE ANTIBIOTICS)) Allergy (Mild, Verified 09/23/24 11:51) RASH amoxicillin (From Augmentin) Adverse Reaction (Intermediate, Verified 09/23/24 11:51) Abdominal Pain citalopram (From Celexa) Adverse Reaction (Intermediate, Verified 09/23/24 11:51) Agitated clavulanic acid (From Augmentin) Adverse Reaction (Intermediate, Verified 09/23/24 11:51) Abdominal Pain gabapentin Adverse Reaction (Intermediate, Verified 09/23/24 11:51) Dizziness prazosin Adverse Reaction (Intermediate, Verified 09/23/24 11:51) Insomnia magnesium Adverse Reaction (Verified 09/23/24 11:51) Diarrhea HPI Comments Details: The patient is a 44 year old individual presenting for an initial evaluation of chronic pain in the right knee. The pain is localized to the lateral aspect of the knee and is described as a pulling, aching sensation with associated tingling and tightness. The patient noticed a lump after starting a new walking routine to work, and woke up with it after having COVID in February. An MRI revealed a 41 x 11 x 43 mm recurrent ganglion cyst at the anterior proximal tibiofibular joint, noted to be larger than on a previous exam. The MRI also showed a small focal bone contusion on the anterior and lateral tibial plateau and a small trace of joint effusion, with no popliteal cyst. X-rays demonstrated nonspecific narrowing of the medial joint space. The patient was previously seen by Orthopedics, including Dr. Brody, where conservative management with compression, aspiration, or excision was discussed. Aspiration was not attempted because a ligament was in the way, and the patient declined a second opinion with a general surgeon at that time. The patient has tried bracing without relief. For pain management, the patient takes Celebrex, which is helpful, and has used topical medical cannabis. She reports effective pain control with tramadol, however her provider is no longer prescribing. The patient's medical history includes a diagnosis of long-term COVID, a history of alcohol rehabilitation, and current tobacco use. She also reports chronic low back pain. The patient has not undergone physical therapy in the past 1-2 years. - Location: Pain is localized to the lateral aspect of the right knee. - Quality: Described as a pulling, aching sensation with tingling and numbness around lateral knee due to lump in place. - Onset: The patient woke up with a lump in the knee after a period of increased walking. - Aggravating Factors: Walking, bending, climbing stairs, cold weather. - Associated symptoms: A visible lump on the knee, lateral aspect. - Affect: The pain is described as annoying, and the patient desires to regain quality of life. - Analgesia: The patient takes Celebrex and notes it helps; states tramadol was more effective. - Activities of Daily Living: The patient's work involves being on the patient's feet, and the patient previously walked several miles a day. - Aberrant Drug Related Behaviors: The patient previously took tramadol but it was stopped by the PCP, and the patient has a history of alcohol rehabilitation. PFS Medical History Pancolitis Alcohol withdrawal Alcohol intoxication Alcohol use disorder, severe, dependence Fracture of greater tuberosity of right humerus Closed fracture of greater tuberosity of right humerus Pancytopenia Alcohol withdrawal seizure Diverticulitis Pelvic abscess in female Anxiety Alcohol abuse Surgical History No pertinent past surgical history Family History Father Medical history unknown Mother Medical history unknown Hypothyroid Paternal Grandfather Cancer Sister Epilepsy Daughter In good health Son In good health Other Substance use disorder Social History Household Members: Significant Other Household Members Other:: boyfriend. Housing: House Do you presently have visiting nurse or other home services: No Alcohol intake: former Year quit: 2021 Comment: REFUSING ALARM Patient Tobacco Use Status: Current everyday Tobacco user Tobacco use type: Cigarette Cigarette Packs Per Day: 0.5 Cigarettes Per Day: 4 e-Cigarette/Vaping Use: Never Used Second Hand Smoke Exposure: No Substance Use Type: Marijuana Advance Directives Date on File: 01/25/21 service: No Current occupational status: employed Current occupation: [employer] Cognitive needs: No Hearing needs: No Vision needs: No Female Reproductive History Menstrual Age of Menarche: 9 Review of Systems Const Details: - Musculoskeletal: Reports chronic right knee pain, a lump, aching at night, and stiffness. - Neurological: Reports tingling and numbness in the right knee area. - Constitutional: Reports history of long COVID. Denies fever, chills, cough, rash or malaise. All systems reviewed & are unremarkable except as noted in HPI and below Physical Exam Vital Signs: Last Vital Signs Pulse 78 01/09/25 14:06 BP 102/63 01/09/25 14:06 Pulse Ox 99 01/09/25 14:06 Oxygen Delivery Method Room Air 01/09/25 14:06 BMI result Body Mass Index 20.5 General: Appears afebrile. Alert and oriented. Mood and affect appropriate. Follows and participates in conversation appropriately. Respiratory effort is unlabored. No cough. Able to transition from sit to stand unassisted. Ambulates with bilaterally normal heel strike and toe off. Back/Spine/Pelvis Cervical Spine: cervical ROM normal, No Cervical spine scars present and No Cervical spine tenderness Thoracic/Lumbar Spine: thoracic and lumbar spine normal to inspection, No Thoracic/lumbar spine scar(s), Lasegue's sign negative, straight leg raise negative bilaterally, pain with thoraco-lumbar ROM, No thoracic spinal tenderness and No lumbar spinal tenderness Extrem General: Yes capillary refill normal, Yes no clubbing, cyanosis or edema and Yes no calf tenderness Right lower extremity: knee (Lump noted to lateral aspect, nontender on palpation) Details: normal to inspection, tenderness Location: of the lateral joint line and normal ROM; no swelling, no ecchymosis, no crepitus and no unusual warmth Results Reviewed Results Reviewed: MR KNEE WITHOUT CONTRAST, RIGHT 09/17/24 CLINICAL INFORMATION: Synovial cyst. Pain. COMPARISON: July 08, 2017. TECHNIQUE: MRI of the knee without contrast was performed using routine sequences on a high-field scanner. FINDINGS: Subtle bone marrow signal in the anterior aspect of the lateral tibial plateau/epiphysis extending into the anterior midline. There is an 11 mm lobulated fluid signal characteristic abnormality in the inferior aspect of the lateral knee beneath the lateral collateral ligament and surrounding the tibia-fibula ligament with the likely extending into the deep fat planes of the lateral aspect of the inferior right knee which measures 41 x 11 x 43 mm. These septated fluid signal characteristic abnormality extending from the skin surface of the fat planes just lateral to the lateral collateral ligament. MENISCI: Medial Meniscus: Intact Lateral Meniscus: Intact LIGAMENTS: Cruciate: Intact Collateral: Intact EXTENSOR MECHANISM: Intact ARTICULAR CARTILAGE/BONE: Patellofemoral Compartment: Normal Medial Compartment: Normal Lateral Compartment: Normal JOINT FLUID AND BURSAE: Small trace amount of fluid suprapatellar bursa and posterior medial compartment and the superior medial aspect of the posterior joint capsule at the medial femoral condyle. No popliteal cyst. IMPRESSION: 41 x 11 x 43 mm septated ganglion, recurrent, anterior proximal tibiofibular joint from the skin to the deep fat planes abutting the lateral collateral ligament. Overall larger since prior exam. Small focal bone contusion, anterior and lateral tibial plateau. Small trace joint effusion. No popliteal cyst. XR KNEE, RIGHT 09/23/24 CLINICAL INFORMATION: M17.11 - Unilateral primary osteoarthritis, right knee COMPARISON: None available. TECHNIQUE: Three views of the right knee. FINDINGS: There is no joint effusion. There is questionable narrowing of the medial joint space. There are no osteophytes. There is no abnormal soft tissue calcification. There is a mass in the subcutaneous soft tissues lateral to the medial joint line. Extends from the region of the femoral condyle to the proximal fibula. IMPRESSION: Questionable nonspecific narrowing of the medial joint space. Lateral mass in the subcutaneous soft tissues was demonstrated on MRI September 17, 2024 and may be associated with an occult tear of the lateral meniscus. Assessment & Plan Assessment & Plan (1) Synovial cyst of right knee: Code(s): M71.21 - Synovial cyst of popliteal space [Johnson], right knee Category: Medical (2) Mass of right knee: Code(s): R22.41 - Localized swelling, mass and lump, right lower limb Category: Medical (3) Right knee pain: Code(s): M25.561 - Pain in right knee Category: Medical (4) Low back pain: Code(s): M54.50 - Low back pain, unspecified Category: Medical (5) Osteoarthritis, knee: Code(s): M17.9 - Osteoarthritis of knee, unspecified Category: Medical Qualifiers: Osteoarthritis type: primary Laterality: bilateral Qualified Code(s): M17.0 - Bilateral primary osteoarthritis of knee Plan The patient's primary issue is a lump or cyst like mass in the right lateral knee that is compressing surrounding structures and causes her pain with movement, mobility and bending. Plan for a referral to a General Surgeon for consideration of excision will be placed. If the pain remains unresolved after the excision, interventional pain m anagement will be considered, such as a diagnostic genicular nerve block for potential radiofrequency ablation (RFA), which can provide pain relief for up to 12 months or longer. In the interim, the patient is advised to continue Celebrex and may use heat or ice for symptomatic relief. I have informed patient that our office does not offer opioid program. The patient should follow up after the surgical consultation and consider genicular nerve block if knee pain persists post- operatively. All questions and concerns have been answered and patient agreed with the treatment plan. Follow up as needed. Patient was informed and verbally consented to the use of an ambient scribe for clinic note documentation during this visit. Orders: Referrals General Surgery Referral M71.21 - Synovial cyst of popliteal space [Johnson], right knee, R22.41 - Localized swelling, mass and lump, right lower limb Coding Level of Care Code New Pt Level 4 (58478) Diagnoses Synovial cyst of right knee M71.21 Mass of right knee R22.41 Right knee pain M25.561 Low back pain M54.50 Primary osteoarthritis of both knees M17.0 Osteoarthritis type: primary Laterality: bilateral
[2025-01-09 14:06] VITALS: BP 102/63; PULSE 78; O2SAT 99; BMI 20.5
== END 2025-01-09 14:57 | disposition home or self-care (01) ==
LOC: HO.PMC 13:41
PROVIDERS: PCP Physician Assistant; Visit Provider Nurse Practitioner Family
DX: M71.21 Synovial cyst of popliteal space [Baker], right knee (principal); R22.41 Localized swelling, mass and lump, right lower limb; M25.561 Pain in right knee; M54.50 Low back pain, unspecified; M17.0 Bilateral primary osteoarthritis of knee
CPT/HCPCS: 99204

== ENCOUNTER → 2025-01-09 13:40 | Outpatient (BNVA) | payer OTHER, SELFPAY | PROVIDERS: PCP Physician Assistant; Visit Provider Nurse Practitioner Family | DX: M71.21 Synovial cyst of popliteal space [Baker], right knee (principal); R22.41 Localized swelling, mass and lump, right lower limb; M25.561 Pain in right knee; M54.50 Low back pain, unspecified; M17.0 Bilateral primary osteoarthritis of knee | CPT/HCPCS: 99202 ==